=== PATIENT | female | born 1965 | race Caucasian/White ===

== ENCOUNTER 2017-08-25 18:31 | Emergency (ER) | payer OTHER ==
[~2017-08-25] VITALS: Ht 172.7 cm; Wt 90.7 kg
[~2017-08-25 18:31] MED LIST: ALBUAER19 INH; AMT50 PO; CLR10 PO; CYM/30 PO; DEXL60CA4 PO; DICY10CA12 PO; EFF75 PO; ESTCR PV; FLUT0.0529; HYDR-5688 PO; LEVO100T PO; MECL1TAB42 PO; METO-157 PO; MONT1TAB3 PO; ONDA4TAB46 PO; PREG1CAP70 PO; RANI300T PO; TRAM-10 PO
[2017-08-25 18:44] VITALS: TEMP 36.7; Ht 172.7 cm; Wt 90.7 kg
--- NOTE | 2017-08-25 19:19 | EMERGENCY ROOM VISIT NOTE ---
History First contact with patient: 18:49 Chief Complaint: GI ASSESSMENT Stated Complaint: NAUSEA, DIARRHEA, STOMACH PAIN, COUGHING, VOMITING Nursing Triage Summary: Patient c/o no appetite, vomiting with the diarrhea for the last 5 days, dizziness today, coughing more than normal, upper abdominal pain, and pain in ears. Took Tylenol for low grade fever at home. PMH: Gastroporesis. History of Present Illness The patient is a 52 year old female who presents to the Emergency Room with complaints of vomiting and diarrhea for 5 days Patient says that she has had 2 episodes of nonbloody emesis per day and has been unable to keep any food down. She has been able to keep down fluids. She also reports profuse diarrhea, but denies blood in her stool. In addition, she reports general abdominal tenderness, abdominal distension, ab fullness. She also has had increased belching and flatulence. She states that she has had a mild fever. Today she is afebrile, but patient states that she has taken Tylenol. Patient denies CP, SOB or URI symptoms. Patient was 2 different antibiotics over the past month for a sinus infection. Patient is a 38 year, 1 PPD smoker. Review of Systems see below Constitutional: + fever, No chills, No sweats Respiratory: No cough, No sputum, No wheezing, No shortness of breath, No dyspnea on exertion Cardiovascular: No chest pain, No orthopnea, No palpitations Abdomen: + pain, + nausea, + vomiting, + diarrhea Genitourinary - Female: No dysuria, No urinary frequency Past Medical/Surgical History Medical Problems: (1) Candidiasis Of The Esophagus (2) Esophageal Reflux (3) Gastroparesis (4) Vertigo Surgical Problems: (1) History of cholecystectomy Family History Cancer Diabetes mellitus Heart disease Hypertension Kidney disease Kidney stones Lung disease Social History Smoking Status: Current Every Day Smoker Alcohol Use: none Marital Status: Housing Status: lives with roommate Occupation Status: unemployed Current/Historical Medications Scheduled Amitriptyline Hcl (Elavil), 50 MG PO HS Dexlansoprazole (Dexilant), 1 CAP PO QPM Duloxetine Hcl (Cymbalta), 30 MG PO QPM Estradiol Vag 0.01% (Estrace Vag 0.01% ), 0.25 APPL PV [id number] Fluticasone Propionate (Nasal) (Flonase), 1 SPRAY NA QAM Hydrocodone/Acetaminophen 5MG/325MG (Roland 5MG/325MG), 1 TAB PO Q6H Levothyroxine Sodium (Synthroid), 100 MCG PO QAM Metoclopramide (Reglan), 10 MG PO BID Montelukast Sodium (Singulair), 10 MG PO QPM Pregabalin (Lyrica), 150 MG PO BID Ranitidine Hcl (Zantac), 300 MG PO HS Venlafaxine Hcl (Effexor), 75 MG PO QAM Scheduled PRN Albuterol Inhaler (Ventolin Inhaler), 1-2 PUFFS INH q4-6h PRN for prn Dicyclomine Hcl (Dicyclomine Hcl), 1 CAP PO TID PRN for PRN Loratadine (Claritin), 10 MG PO QAM PRN for PRN Meclizine Hcl (Meclizine Hcl), 25 MG PO TID PRN for Dizziness or Vertigo Ondansetron Hcl (Zofran), 1-2 TABS PO BID PRN for Nausea Tramadol (Ultram), 50 MG PO Q6 PRN for Pain Physical Exam Vital Signs Date Time Temp Pulse Resp B/P (MAP) Pulse Ox O2 Delivery O2 Flow Rate FiO2 08/25/17 20:29 76 18 137/78 96 Room Air 08/25/17 18:44 36.7 103 20 133/86 96 Room Air Physical Exam see below General Appearance: WD/WN, no apparent distress Head: normocephalic, atraumatic Neck: supple, no adenopathy Respiratory/Chest: chest non-tender, no respiratory distress, no accessory muscle use, + wheezing Cardiovascular: regular rate, rhythm, no edema, no gallop, no JVD, no murmur Abdomen / GI: normal bowel sounds, soft, no organomegaly, no pulsatile mass , + tenderness Neurologic/Psych: alert, normal mood/affect, normal reflexes, oriented x 3 Medical Decision & Procedures ER Provider Diagnostic Interpretation: PA CHEST WITH ABDOMINAL SERIES CLINICAL HISTORY: Vomiting. FINDINGS: A PA chest radiograph is compared to study dated 03/20/2016. The cardiomediastinal silhouette is unremarkable. The lungs and pleural spaces are clear. No pneumothorax is seen. The bony thorax is grossly intact. Supine and erect abdominal radiographs are compared to study dated 05/23/2016. Call cystectomy clips are noted. There is a nonobstructed abdominal bowel gas pattern. Scattered air-fluid levels are suggested in the colon. No evidence of intraperitoneal free air is seen. There are no abnormal abdominal calcifications. Phleboliths are seen in the pelvis. The lumbosacral spine and bony pelvis appear intact. IMPRESSION: 1. No active disease in the chest. 2. Nonobstructed abdominal bowel gas pattern. 3. Scattered air-fluid levels are suggested in the colon. Correlate clinically for evidence of a nonspecific enterocolitis. Laboratory Results 08/25/17 19:23 Red Blood Count 4.20, Mean Corpuscular Volume 89.8, Mean Corpuscular Hemoglobin 30.0, Mean Corpuscular Hemoglobin Concent 33.4, Mean Platelet Volume 11.3, Neutrophils (%) (Auto) 50.6, Lymphocytes (%) (Auto) 37.4, Monocytes (%) (Auto) 6.7, Eosinophils (%) (Auto) 4.3, Basophils (%) (Auto) 0.7, Neutrophils # (Auto) 4.79, Lymphocytes # (Auto) 3.55, Monocytes # (Auto) 0.64, Eosinophils # (Auto) 0.41, Basophils # (Auto) 0.07 08/25/17 19:23 Test 08/25/17 19:00 08/25/17 19:23 Urine Opiates Screen NEG (NEG) Urine Methadone, Qualitative NEG (NEG) Urine Barbiturates NEG (NEG) Urine Phencyclidine (PCP) Level NEG (NEG) Ur Amphetamine/Methamphetamine NEG (NEG) MDMA (Ecstasy) Screen NEG (NEG) Urine Benzodiazepines Screen NEG (NEG) Urine Cocaine Metabolite NEG (NEG) Urine Marijuana (THC) POS (NEG) White Blood Count 9.49 K/uL (4.8-10.8) Red Blood Count 4.20 M/uL (4.2-5.4) Hemoglobin 12.6 g/dL (12.0-16.0) Hematocrit 37.7 % (37-47) Mean Corpuscular Volume 89.8 fL (80-100) Mean Corpuscular Hemoglobin 30.0 pg (25-34) Mean Corpuscular Hemoglobin Concent 33.4 g/dl (32-36) Platelet Count 231 K/uL (130-400) Mean Platelet Volume 11.3 fL (7.4-10.4) Neutrophils (%) (Auto) 50.6 % Lymphocytes (%) (Auto) 37.4 % Monocytes (%) (Auto) 6.7 % Eosinophils (%) (Auto) 4.3 % Basophils (%) (Auto) 0.7 % Neutrophils # (Auto) 4.79 K/uL (1.4-6.5) Lymphocytes # (Auto) 3.55 K/uL (1.2-3.4) Monocytes # (Auto) 0.64 K/uL (0.11-0.59) Eosinophils # (Auto) 0.41 K/uL (0-0.5) Basophils # (Auto) 0.07 K/uL (0-0.2) RDW Standard Deviation 49.3 fL (36.4-46.3) RDW Coefficient of Variation 15.2 % (11.5-14.5) Immature Granulocyte % (Auto) 0.3 % Immature Granulocyte # (Auto) 0.03 K/uL (0.00-0.02) Anion Gap 7.0 mmol/L (3-11) Est Creatinine Clear Calc Drug Dose 97.1 ml/min Estimated GFR () 99.9 Estimated GFR (Non- 86.2 BUN/Creatinine Ratio 13.1 (10-20) Calcium Level 8.8 mg/dl (8.5-10.1) Total Bilirubin 0.4 mg/dl (0.2-1) Aspartate Amino Transf (AST/SGOT) 60 U/L (15-37) Alanine Aminotransferase (ALT/SGPT) 167 U/L (12-78) Alkaline Phosphatase 128 U/L (45-117) Total Protein 7.2 gm/dl (6.4-8.2) Albumin 3.7 gm/dl (3.4-5.0) Globulin 3.5 gm/dl (2.5-4.0) Albumin/Globulin Ratio 1.0 (0.9-2) Lipase 92 U/L (73-393) Medications Administered Medications (Trade) Dose Ordered Sig/Cal Route Start Time Stop Time Status Last Admin Dose Admin Ondansetron HCl (Zofran Inj) 4 mg NOW STAT IV 08/25/17 19:41 08/25/17 19:42 DC 08/25/17 19:47 4 MG Acetaminophen (Tylenol Tab) 650 mg NOW STAT PO 08/25/17 19:47 08/25/17 19:48 DC 08/25/17 20:25 650 MG Sodium Chloride 1,000 ml @ 999 mls/hr Q1H1M IV 08/25/17 20:15 09/24/17 20:14 08/25/17 20:29 999 MLS/HR ED Course 1900 history and physical performed 1914 order the following test and labs; ab/chest xray, cbc, cmp, cdiff, FOBT, urine toxicology 1944 Reaccessed the patient Medical Decision 52 year female comes into the ED with symptoms of vomiting and diarrhea for 5 days. Patient is unsure of recent sick contacts. Xray of the abdomen did not show signs of obstruction, but it did show air fluid levels consistent with enterocolitis. Patient was given Zofran for nausea, Tylenol for the pain and IVF. The patient had a normal white count, is afebrile. Patient reports PSH of cholecystomy. The patient's vital signs were stable throughout her ED course. Her symptoms are likely secondary to infectious gastroenteritis. She was advised to drink plenty of fluids and to consume a bland diet. She was instructed to follow up with her PCP in the next week. She was shown to have elevated LFT, likely 2/2 fatty liver disease. Patient endorses having a fatty liver on USG in the past. She was instructed to follow this up with her primary care doctor. Impression Primary Impression: Gastroenteritis Departure Information Dispostion Home / Self-Care Condition FAIR Referrals Ninfa Cruz D.ONidia (PCP) Patient Instructions My [facility] Additional Instructions Ms. Juarez, Kieran came to the ED to be evaluated for vomiting and diarrhea. Your labs and test were normal. You did have moderately elevated liver enzymes. This is likely not related to your other symptoms, but nonetheless, they should be rechecked and addressed by your primary care physician. Please follow up with your primary care doctor. You were given fluids, Zofran for nausea and Tylenol for abdominal pain. Zofran(odansetron) tablets 4mg: Take one and allow it to dissolve in your mouth every four to six hours as needed for nausea or vomiting. Acetaminophen(Tylenol) may be used for fever or pain. Use 1000mg every eight hours as needed. Avoid using more than 3000mg in a 24 hour period. This is available over the counter. Read all the package inserts or medication information paperwork provided. If you have any questions or concerns call your primary provider, pharmacist or the ER for assistance. Rest and drink plenty of fluids as tolerated. Slow sips of water or sports drinks are recommended instead of large amounts all at once. Continue current medications. Once your stomach is settled start with a clear liquid diet (jello, soup broth, etc.) and then advance as tolerated. You should avoid full, heavy meals for about 24 hrs from the time your symptoms resolved. Return to the ER for persistent vomiting, fevers, abdominal pain, chest pains, difficulty breathing, black or bloody stools, worsening of your condition, or as needed. Follow up with your primary physician in 1-2 days for a recheck of your current condition
--- NOTE | 2017-08-25 19:33 | EMERGENCY ROOM VISIT NOTE ---
ED Visit Note First contact with patient: 18:49 Resident Physician Supervision Note: I was present with Dr. Yost during the history and exam. I discussed the case with the resident and agree with the findings and plan as documented in the note. Documented By: Stefan Escalona
[2017-08-25 19:40] LABS: BASO % 0.7 %; BASO ABS # 0.07 K/uL (0-0.2); COMPLETE YES; EOS % 4.3 %; HEMATOCRIT 37.7 % (37-47); IG% 0.3 %; LYMPH % 37.4 %; LYMPH ABS # 3.55 K/uL (1.2-3.4); MEAN CELL VOLUME 89.8 fL (80-100); MEAN CORPUSCULAR HGB CONC 33.4 g/dl (32-36); MEAN PLATELET VOLUME 11.3 fL (7.4-10.4); MONO % 6.7 %; NEUT % 50.6 %; PLATELET COUNT 231 K/uL (130-400); WHITE BLOOD COUNT 9.49 K/uL (4.8-10.8)
[2017-08-25] MEDS ORDERED: ONDANSETRON INJ 2 MG/ML 2 ML VIAL IV STA (19:41)
[2017-08-25] MEDS ORDERED: ACETAMINOPHEN 325 MG TAB PO STA (19:47)
[2017-08-25 20:02] LABS: BUN/CREATININE RATIO 13.1 (10-20); CALCIUM 8.8 mg/dl (8.5-10.1); CREATININE 0.78 mg/dl (0.60-1.20); POTASSIUM 3.5 mmol/L (3.5-5.1)
[2017-08-25] MEDS ORDERED: SODIUM CHLORIDE 0.9% 1000ML 1,000 ML IV SCH (20:15)
--- NOTE | 2017-08-25 20:16 | DIAGNOSTIC IMAGING REPORT ---
PA CHEST WITH ABDOMINAL SERIES CLINICAL HISTORY: Vomiting. FINDINGS: A PA chest radiograph is compared to study dated 03/20/2016. The cardiomediastinal silhouette is unremarkable. The lungs and pleural spaces are clear. No pneumothorax is seen. The bony thorax is grossly intact. Supine and erect abdominal radiographs are compared to study dated 05/23/2016. Call cystectomy clips are noted. There is a nonobstructed abdominal bowel gas pattern. Scattered air-fluid levels are suggested in the colon. No evidence of intraperitoneal free air is seen. There are no abnormal abdominal calcifications. Phleboliths are seen in the pelvis. The lumbosacral spine and bony pelvis appear intact. IMPRESSION: 1. No active disease in the chest. 2. Nonobstructed abdominal bowel gas pattern. 3. Scattered air-fluid levels are suggested in the colon. Correlate clinically for evidence of a nonspecific enterocolitis. Electronically signed by: Gagan Christianson M.D. 08/25/2017 8:15 PM Dictated Date/Time: 08/25/2017 8:13 PM
[2017-08-25 20:30] LABS: BENZODIAZEPINE, URINE NEG (NEG); COCAINE,URINE NEG (NEG); PHENCYCLIDINE, URINE NEG (NEG)
[2017-08-25 22:02] VITALS: BP 137/82; PULSE 72; O2SAT 97
== END 2017-08-25 22:03 | disposition home or self-care (01) ==
LOC: C.EDB 18:32
DX: K52.9 Noninfective gastroenteritis and colitis, unspecified (principal); K21.9 Gastro-esophageal reflux disease without esophagitis; K31.84 Gastroparesis; Z80.9 Family history of malignant neoplasm, unspecified; Z83.3 Family history of diabetes mellitus; Z82.49 Family history of ischemic heart disease and other diseases of the circulatory system; Z84.1 Family history of disorders of kidney and ureter; Z83.6 Family history of other diseases of the respiratory system; F17.210 Nicotine dependence, cigarettes, uncomplicated; Z79.899 Other long term (current) drug therapy

== ENCOUNTER 2017-10-01 17:14 | Emergency (ER) | payer OTHER ==
[~2017-10-01] VITALS: Ht 172.7 cm; Wt 91.0 kg
[~2017-10-01 17:14] MED LIST changes: -METO-157 PO; -RANI300T PO
[2017-10-01 17:19] VITALS: TEMP 36.7; Ht 172.7 cm; Wt 91.0 kg
[2017-10-01] MEDS ORDERED: HYDROCODONE/ACETAMINOPHEN 7.5/325MG TAB PO STA (17:28)
[2017-10-01] MEDS ORDERED: RANI300T PO (18:06)
--- NOTE | 2017-10-01 18:19 | DIAGNOSTIC IMAGING REPORT ---
PA CHEST WITH LEFT-SIDED RIB SERIES CLINICAL HISTORY: Fall with left-sided chest wall pain. FINDINGS: A PA chest radiograph with 4 additional views may left-sided rib series is compared to study dated 03/20/2017. The cardiomediastinal silhouette is unremarkable. The lungs and pleural spaces are clear. There is left basilar atelectasis. No large pleural effusion or pneumothorax is seen. The skeletal structures are osteopenic. There are acute and minimally distracted left posterior fourth, fifth, and seventh rib fracture. No additional rib fracture is clearly identified on the rib series. The remainder of the bony thorax is grossly intact. IMPRESSION: 1. There is no airspace consolidation, large pleural effusion, or pneumothorax. 2. There are acute and minimally distracted left posterior 4th, 5th, and 7th rib fractures. Electronically signed by: Gagan Christianson M.D. 10/01/2017 6:18 PM Dictated Date/Time: 10/01/2017 6:14 PM
--- NOTE | 2017-10-01 18:25 | DIAGNOSTIC IMAGING REPORT ---
LEFT WRIST 4 VIEWS CLINICAL HISTORY: Fall with left wrist pain. FINDINGS: 4 views of left wrist are compared to study dated 06/23/2006. There is chronic posttraumatic deformity of the distal radial metaphysis as well as a chronic avulsion fracture of the ulnar styloid. There is likely acute on chronic fracture of the distal radial metaphysis. This is best seen on the lateral projection with there is cortical buckling. Lucencies in the distal right metaphysis also likely represent acute fracture and there is suspect intra-articular extension Overlying soft tissue edema is noted. Degenerative narrowing is seen at the radiocarpal articulation. Mild arthritic change is present the first carpal metacarpal joint. IMPRESSION: Suspect acute on chronic distal metaphyseal fracture of the left radius with overlying soft tissue edema. Electronically signed by: Gagan Christianson M.D. 10/01/2017 6:24 PM Dictated Date/Time: 10/01/2017 6:21 PM
[2017-10-01] MEDS ORDERED: PREG225C PO (18:33)
[2017-10-01] MEDS ORDERED: PROM25TA9 PO (18:33)
[2017-10-01] MEDS ORDERED: AMT/50 PO (18:33)
[2017-10-01] MEDS ORDERED: NAPR500T3 PO (18:33)
[2017-10-01] MEDS ORDERED: ATV5X PO (18:33)
[2017-10-01] MEDS ORDERED: LEVO75TA5 PO (18:33)
[2017-10-01] MEDS ORDERED: ATOR-22 PO (18:33)
[2017-10-01] MEDS ORDERED: MECL1CHW PO (18:33)
[2017-10-01] MEDS ORDERED: LORA10TA6 PO (18:33)
[2017-10-01] MEDS ORDERED: VENL37.593 PO (18:35)
[2017-10-01] MEDS ORDERED: VNTHFA/IN INH (18:38)
[2017-10-01] MEDS ORDERED: ESTCR PV (18:38)
[2017-10-01] MEDS ORDERED: METO-157 PO (18:45)
[2017-10-01] MEDS ORDERED: HYDR-3983 PO (18:48)
--- NOTE | 2017-10-01 18:50 | EMERGENCY ROOM VISIT NOTE ---
History Report prepared by Cate: Ute Martin Under the Supervision of: Dr. Carmine Morley D.O. First contact with patient: 17:23 Chief Complaint: FALL Stated Complaint: PAIN IN RIBS,L CHEST/WRIST/HAND PAIN-FELL History of Present Illness The patient is a 52 year old female who presents to the Emergency Room with complaints of an episode of fall around 7 hours ago. The patient was outside getting the mail when she slipped on ice and fell. She denies any head injury or LOC. She reports left rib pain which worsens with coughing. She also complains of left hand and wrist pain. She had swelling which has improved with ice. She reports difficulty moving her thumb due to the pain. She has left back pain which she thinks is from her ribs. She denies any knee pain or leg pain. Source of History: patient Onset: 7 hours ago Position: other (global) Quality: other (fall) Timing: other (episodic) Associated Symptoms: + back pain, No LOC Note: Pt reports left rib pain, left hand pain, left wrist pain. Pt denies knee pain, leg pain. Review of Systems See HPI for pertinent positives & negatives. A total of 10 systems reviewed and were otherwise negative. Past Medical & Surgical Medical Problems: (1) Candidiasis Of The Esophagus (2) Esophageal Reflux (3) Gastroparesis (4) Vertigo Surgical Problems: (1) History of cholecystectomy Family History Cancer Diabetes mellitus Heart disease Hypertension Kidney disease Kidney stones Lung disease Social History Smoking Status: Current Every Day Smoker Alcohol Use: none Marital Status: Housing Status: lives with roommate Occupation Status: unemployed Current/Historical Medications Scheduled Amitriptyline HCl (Amitriptyline HCl), 50 MG PO HS Atorvastatin (Lipitor), 20 MG PO DAILY Dexlansoprazole (Dexilant), 60 MG PO QPM Estradiol Vaginal (Estrace), 1 APPLN PV UD Levothyroxine Sodium (Levothyroxine Sodium), 75 MCG PO DAILY Metoclopramide (Reglan), 10 MG PO AC Pregabalin (Lyrica), 225 MG PO BID Ranitidine Hcl (Zantac), 300 MG PO HS Venlafaxine Hcl (Venlafaxine Extended Rel), 37.5 MG PO DAILY Scheduled PRN Albuterol Hfa (Ventolin Hfa), 2 PUFFS INH Q4H PRN for Cough/SOB/Wheezing Dicyclomine Hcl (Dicyclomine Hcl), 10 MG PO TID PRN for Abdominal Pain Hydrocodone/Acetaminophen 7.5MG/325MG (Bertha 7.5MG/325MG), 1 TAB PO Q4 PRN for Pain Loratadine (Claritin), 10 MG PO DAILY PRN for Allergy Symptoms Lorazepam (Lorazepam), 0.5 MG PO BID PRN for Anxiety Meclizine Hcl (Travel Sickness), 25 MG PO TID PRN for Dizziness or Vertigo Naproxen (Naproxen), 500 MG PO BID PRN for Pain Promethazine Hcl (Phenergan), 25 MG PO Q6H PRN for Nausea Allergies Coded Allergies: Amoxicillin (Verified Allergy, Intermediate, Rash, 10/01/17) Can tolerate amoxicillin Clavulanic Acid (Verified Allergy, Intermediate, Rash, 10/01/17) Can tolerate amoxicillin Clindamycin (Verified Allergy, Intermediate, Rash and blisters, 10/01/17) Doxycycline (Verified Allergy, Intermediate, Nausea/Vomiting, 10/01/17) Molds and Smuts (Verified Allergy, Unknown, unk, 08/25/17) Rabeprazole (Verified Allergy, Unknown, RASH, 08/25/17) Physical Exam Vital Signs Date Time Temp Pulse Resp B/P (MAP) Pulse Ox O2 Delivery O2 Flow Rate FiO2 10/01/17 17:19 36.7 98 17 127/81 95 Room Air Physical Exam CONSTITUTIONAL/VITAL SIGNS: Reviewed / noted above. GENERAL: Non-toxic in appearance. INTEGUMENTARY: Warm, dry, and Orange. HEAD: Normocephalic. EYES: without scleral icterus or trauma. ENT/OROPHARYNX: clear and moist. LYMPHADENOPATHY/NECK: Is supple without lymphadenopathy or meningismus. CHEST: Tenderness to palpation of the left lateral chest wall. No crepitus. RESPIRATORY: Lungs clear and equal. CARDIOVASCULAR: Regular rate and rhythm. GI/ABDOMEN: Soft and nontender. No organomegaly or pulsatile mass. No rebound or guarding. Normal bowel sounds. EXTREMITIES: Warm and well perfused. Some swelling and tenderness to the left wrist dorsal side overlying the distal radius. No snuffbox tenderness. No pain with axial loading of the digits. BACK: No CVA tenderness. No midline tenderness of the cervical, thoracic, and lumbar spine. NEUROLOGICAL: Intact without focal deficits. PSYCHIATRIC: normal affect. MUSCULOSKELETAL: Normally developed with good muscle tone. Medical Decision & Procedures ER Provider Diagnostic Interpretation: X ray results and stated below per my interpretation and radiology interpretation. PA CHEST WITH LEFT-SIDED RIB SERIES CLINICAL HISTORY: Fall with left-sided chest wall pain. FINDINGS: A PA chest radiograph with 4 additional views may left-sided rib series is compared to study dated 03/20/2017. The cardiomediastinal silhouette is unremarkable. The lungs and pleural spaces are clear. There is left basilar atelectasis. No large pleural effusion or pneumothorax is seen. The skeletal structures are osteopenic. There are acute and minimally distracted left posterior fourth, fifth, and seventh rib fracture. No additional rib fracture is clearly identified on the rib series. The remainder of the bony thorax is grossly intact. IMPRESSION: 1. There is no airspace consolidation, large pleural effusion, or pneumothorax. 2. There are acute and minimally distracted left posterior 4th, 5th, and 7th rib fractures. Electronically signed by: Gagan Christianson M.D. 10/01/2017 6:18 PM Dictated Date/Time: 10/01/2017 6:14 PM LEFT WRIST 4 VIEWS CLINICAL HISTORY: Fall with left wrist pain. FINDINGS: 4 views of left wrist are compared to study dated 06/23/2006. There is chronic posttraumatic deformity of the distal radial metaphysis as well as a chronic avulsion fracture of the ulnar styloid. There is likely acute on chronic fracture of the distal radial metaphysis. This is best seen on the lateral projection with there is cortical buckling. Lucencies in the distal right metaphysis also likely represent acute fracture and there is suspect intra-articular extension Overlying soft tissue edema is noted. Degenerative narrowing is seen at the radiocarpal articulation. Mild arthritic change is present the first carpal metacarpal joint. IMPRESSION: Suspect acute on chronic distal metaphyseal fracture of the left radius with overlying soft tissue edema. Electronically signed by: Gagan Christianson M.D. 10/01/2017 6:24 PM Dictated Date/Time: 10/01/2017 6:21 PM Medications Administered Medications (Trade) Dose Ordered Sig/Cal Route Start Time Stop Time Status Last Admin Dose Admin Acetaminophen/ Hydrocodone Bitart (Bertha 7.5/325 Tab) 1 tab NOW STAT PO 10/01/17 17:28 10/01/17 17:30 DC 10/01/17 17:37 1 TAB ED Course 1724: Previous medical records were reviewed. The patient was evaluated in room D7. A complete history and physical examination was performed. 172: Hydrocodone Bitart/Acetaminophen 1 tab PO. 185: On reevaluation, the patient is resting comfortably. I discussed the results and findings with the patient. She verbalized agreement of the treatment plan. She was discharged home. Medical Decision Differential includes close head injury, intracranial bleed, facial trauma, cervical spine trauma, chest and thoracic trauma, abdominal and intra-abdominal trauma, spine neurologic trauma, extremity trauma. This is a 52-year-old female who presents to the ED with a chief complaint of left-sided rib pain and left wrist pain after a fall. The patient states that her symptoms occurred around 10 AM when she slipped on the ice while getting her mail. The patient landed on her left side and complains of pain in that area. She has some swelling to the distal dorsal wrist on the radial side. She has tenderness to palpation the left ribs. The patient was given hydrocodone for the pain. X-rays reveal left fourth, fifth, sixth and seventh rib fractures. X-ray of the left wrist reveals a distal metaphyseal radius fracture. The patient was placed in a wrist splint. She was referred to orthopedics. She will be discharged on Bertha. Medication Reconcilliation Current Medication List: was personally reviewed by me Blood Pressure Screening Patient's blood pressure: Normal blood pressure Blood pressure disposition: Did not require urgent referral Impression Primary Impression: Fall Additional Impressions: Multiple fractures of ribs of left side Distal radius fracture, left Scribe Attestation The scribe's documentation has been prepared under my direction and personally reviewed by me in its entirety. I confirm that the note above accurately reflects all work, treatment, procedures, and medical decision making performed by me. Departure Information Dispostion Home / Self-Care Prescriptions Hydrocodone/Acetaminophen 7.5MG/325MG (Bertha 7.5MG/325MG) Tab 1 TAB PO Q4 Y for Pain, #30 TAB Prov: Carmine Morley D.O. 10/01/17 Referrals Ninfa Cruz D.O. (PCP) Patient Instructions My [facility] Additional Instructions Bertha as prescribed. Keep splint in place until following up with orthopedics. Call your orthopedist or the one listed here tomorrow for follow-up. Let them know that you broke your left wrist and need to see the orthopedist in 1-2 days. Take periodic deep breaths to prevent pneumonia while the rib fractures are healing. Problem Qualifiers
[2017-10-01] MEDS ORDERED: NORCO 5/325MG HOME PACK PO ONE (19:15)
[2017-10-01 20:03] VITALS: BP 124/77; PULSE 90; O2SAT 95
== END 2017-10-01 20:07 | disposition home or self-care (01) ==
LOC: C.EDB 17:17 → C.EDD 20:07
DX: S22.42XA Multiple fractures of ribs, left side, initial encounter for closed fracture (principal); S52.502A Unspecified fracture of the lower end of left radius, initial encounter for closed fracture; W00.0XXA Fall on same level due to ice and snow, initial encounter; Y92.008 Other place in unspecified non-institutional (private) residence as the place of occurrence of the external cause; F17.200 Nicotine dependence, unspecified, uncomplicated; Z79.899 Other long term (current) drug therapy

== ENCOUNTER 2022-11-18 12:44 | Observation (INO) ==
[2022-11-18] MEDS ORDERED: SODIUM CHLORIDE 0.9% 1000ML 1,000 ML IV SCH (13:30)
--- NOTE | 2022-11-18 13:33 | Emergency Department Note ---
Impression & Plan Psychosis, Acute paranoia, Positive urine drug screen ED Provider Note NAME: YAN MURPHY AGE: 57 SEX: F : 1965 ARRIVES VIA: Ambulance INFORMANT: Patient, ED PROVIDER(S): Stefan Escalona DO CHIEF COMPLAINT: Mental health evaluation HPI: The patient is a 57-year-old female who presented to the emergency department for an evaluation of mental health issues. The patient presented to the emergency department with police for suspected mental health complaint. The patient herself states that she has no pain. She denies having any chest pain or difficulty breathing. She denies having any headache or weakness. She states that she was walking along the road when the police stopped to ask her if she needed anything. She appeared to be confused and somewhat anxious so she was brought to the emergency department. She also voiced to the police that she thought somebody was trying to poison her. The patient states that she has been seeing people in her home that are in the attic and that her boyfriend is not using drugs. She denies any drug use herself. She denies having any alcohol use. The patient states that people are trying to poison her so she stopped taking her medications as well as stopped eating and drinking. The patient is very vague and will not give names on who is trying to harm her. ROS: See above HPI for pertinent positives & negatives. A total of 10 systems reviewed and were otherwise negative. PAST MEDICAL HISTORY: See Below PAST SURGICAL HISTORY: See Below FAMILY HISTORY: See Below SOCIAL HISTORY: See Below HOME MEDICATIONS: See Below ALLERGIES: See Below VITALS: See Below PHYSICAL EXAMINATION: GENERAL: Patient is awake and alert. She is somewhat anxious appearing. She is comfortable appearing. EYES: The conjunctivae are clear. The pupils are round and reactive. EARS, NOSE, MOUTH AND THROAT: The nose is without any evidence of any deformity. Mucous membranes are dry. NECK: The neck is nontender and supple. RESPIRATORY: Normal respiratory effort is noted there is no evidence of wheezing rhonchi or rales CARDIOVASCULAR: Regular rate and rhythm noted there no murmurs rubs or gallops normal S1 normal S2. GASTROINTESTINAL: The abdomen is soft. Abdomen is nontender. MUSCULOSKELETAL/EXTREMITIES: There is no evidence of gross deformity full range of motion is noted in the hips and shoulders. SKIN: There is no obvious evidence of any rash. There are no petechiae, pallor or cyanosis noted. NEUROLOGIC: Patient is awake alert and oriented x3 strength is symmetric patellar reflexes are 2+ bilaterally PSYCH: The patient makes poor eye contact mostly evaluation. She is currently denying any suicidal homicidal ideations. She still supports the paranoia that someone is trying to harm her and the people are in her home. MEDICAL DECISION MAKING: The patient is a 57-year-old female who presented to the emergency department for an evaluation of. Patient does not have a history of psychosis. Additional history was obtained by the mental health shoe parts caser from the patient's parents. She does not have a history of similar behavior in the past. She was brought to the emergency department by ambulance for presumed mental health evaluation. The patient does voice significant paranoia. No definite medical cause could be found for her presentation today. She was treated with IV fluids as well as given a meal in the emergency department. She was reevaluated multiple times. At this time it does not appear the patient would be a good candidate for inpatient psychiatric care given that this is a initial presentation of psychosis. For this reason I will discussed this [facility] Triage Nursing notes reviewed. Prior medical records reviewed Vital Signs: reviewed and remarkable for elevated blood pressure. Differential diagnosis: Mood disorder, infection, hypoglycemia, electrolyte abnormalities, cardiac sources, intracerebral event, toxicologic, trauma, neurologic, as well as other pathologies. ER treatment provided: See below Diagnostics interpreted by me: ECG: EKG was obtained in the emergency department. My interpretation is normal sinus rhythm at 73 bpm. There is no ectopy. There is no acute ST segment abnormalities noted. This was compared to a tracing from September 21, 2019. No changes were noted.] Cardiac Monitoring: An order was placed for continuous cardiac monitoring. The monitor shows a rate of 70 bpm with sinus rhythm. Laboratory studies: As stated above and show below. Imaging studies: See below. Radiographic imaging was reviewed by myself Consultation(s): I discussed this case with Roselia who [facility]. Past Med/Surg History Medical History (Updated 11/18/22 @ 17:06 by Stefan Escalona DO) Asthma C. difficile colitis Chronic pain syndrome Depression Diverticulitis Dyslipidemia Gastroparesis GERD (gastroesophageal reflux disease) Hypothyroidism IBS (irritable bowel syndrome) Vertigo Surgical History History of cholecystectomy History of partial colectomy Social History Smoking Status: Current every day smoker Tobacco Type: Cigarettes Preferred Language: Latvian Feels Safe at Home: No Allergies Allergies Allergy/AdvReac Type Severity Reaction Status Date / Time clavulanic acid Allergy Intermediate Rash Verified 09/27/22 15:30 clindamycin Allergy Intermediate Rash and Verified 09/27/22 15:30 blisters doxycycline Allergy Intermediate Nausea/Vomi Verified 09/27/22 15:30 ting mold Allergy Unknown Unknown Verified 09/27/22 15:30 rabeprazole Allergy Unknown Rash Verified 09/27/22 15:30 Home Meds Home Medications Medication Instructions Recorded Confirmed albuterol sulfate 90 mcg/actuation 2 puff inhalation DIRECTED PRN 10/26/18 09/27/22 aerosol inhaler (Ventolin HFA) Shortness Of Breath Or Wheezing levothyroxine 75 mcg tablet 75 mcg PO QAM 10/26/18 09/27/22 dexlansoprazole 60 mg 60 mg PO QAM 09/21/19 09/27/22 capsule,biphase delayed release (Dexilant) acetaminophen 500 mg tablet 500 - 1,000 mg PO DIRECTED PRN 09/27/22 09/27/22 (Tylenol Extra Strength) Pain amoxicillin 875 mg tablet 875 mg PO BID 09/27/22 09/27/22 budesonide-formoterol HFA 160 1 puff inhalation BID PRN 09/27/22 09/27/22 mcg-4.5 mcg/actuation aerosol Shortness Of Breath inhaler (Symbicort) Previous Rx's Medication Instructions Recorded etodolac 200 mg capsule 200 mg PO Q8H PRN pain #6 caps 09/27/22 Results & Data (ED) Vital Signs Vital Signs - 24 hr 11/18/22 12:54 11/18/22 12:54 Temperature 36.7 C 36.7 C Temperature Source Oral Oral Pulse Rate 70 Pulse Rhythm Regular Pulse Strength Normal Respiratory Rate 18 18 Respiratory Effort / Characteristics Non-Labored Spontaneous Non-Labored Spontaneous Respiratory Depth Normal Normal Respiratory Pattern Regular Regular Blood Pressure 141/89 H Blood Pressure Mean 106 Blood Pressure Position Sitting Pulse Oximetry 97 97 Oxygen Delivery Method Room Air Room Air Sepsis Recent Fever Within 48 Hours No Sepsis New/Unexplained Change in Mental Status Yes Sepsis Action Taken by Nursing No Action Required Home Medications Current Medication List: was personally reviewed by me Laboratory Data Attestation: I reviewed the patient's lab results. 11/18/22 13:47 11/18/22 13:47 Lab Results 11/18/22 11/18/22 11/18/22 Range/Units 13:25 13:47 13:47 WBC 6.39 (4.8-10.8) K/ul RBC 4.47 (4.20-5.40) M/uL Hgb 13.4 (12.0-16.0) g/dl Hct 39.8 (37.0-47.0) % MCV 89.0 (80.0-100.0) fL MCH 30.0 (25.0-34.0) pg MCHC 33.7 (32.0-36.0) g/dL RDW Std Deviation 41.1 (36.4-46.3) fL RDW Coeff of Naeem 12.8 (11.5-14.5) % Plt Count 283 (130-400) K/uL MPV 12.0 (9.4-12.4) fL Immature Gran % (Auto) 0.3 % Neut % (Auto) 61.0 % Lymph % (Auto) 28.8 % [place] % (Auto) 6.6 % Eos % (Auto) 1.1 % Baso % (Auto) 2.2 % Neut # (Auto) 3.90 (1.40-6.50) K/uL Lymph # (Auto) 1.84 (1.2-3.4) K/uL [place] # (Auto) 0.42 (0.11-0.59) K/uL Eos # (Auto) 0.07 (0-0.50) K/uL Baso # (Auto) 0.14 (0-0.2) K/uL Immature Gran # (Auto) 0.02 (0.01-0.20) K/uL Sodium 142 (136-145) mmol/L Potassium 3.7 (3.5-5.1) mmol/L Chloride 104 (98-107) mmol/L Carbon Dioxide 31 (21-32) mmol/L Anion Gap 7 (3-11) BUN 13 (6-23) mg/dl Creatinine 0.73 (0.6-1.2) mg/dl Est Cr Clr Drug Dosing 82.5 ml/min Est GFR ( Amer) 104.5 ml/min Est GFR (Non-Af Amer) 90.1 ml/min BUN/Creatinine Ratio 17.8 (10-20) Glucose 81 (70-99(Fasting)) mg/dl Calcium 9.7 (8.5-10.1) mg/dl Total Bilirubin 0.6 (0.2-1.0) mg/dl AST 34 (13-39) U/L ALT 30 (7-52) U/L Alkaline Phosphatase 63 (34-104) U/L Troponin I High Sens 5.7 (0-14) pg/ml Total Protein 7.7 (6.0-8.3) gm/dl Albumin 4.6 (3.4-5.0) gm/dl Globulin 3.1 (2.5-4.0) gm/dl Albumin/Globulin Ratio 1.5 (0.9-2) TSH (0.300-4.500) uIu/ml Urine Color Urine Appearance (Clear) Urine pH (4.5-7.5) Ur Specific [place] (1.000-1.030) Urine Protein (Negative) Urine Glucose (UA) (Negative) Urine Ketones (Negative) Urine Blood (Negative) Urine Nitrite (Negative) Urine Bilirubin (Negative) Urine Urobilinogen (Negative) Ur Leukocyte Esterase (Negative) Urine WBC (Auto) (0-5) /hpf Urine RBC (Auto) (0-4) /hpf U Hyaline Cast (Auto) (0-5) /lpf U Epithel Cells (Auto) (0-5) /lpf Urine Bacteria (Auto) (Negative) Salicylates (3.0-30) mg/dl Urine Opiates Screen (Neg) Ur Methadone, Qual (Neg) Acetaminophen (10-30) ug/ml Urine Barbiturates (Neg) Ur Phencyclidine (PCP) (Neg) U Amphetamin/Meth Scrn (Neg) MDMA (Ecstasy) Screen (Neg) U Benzodiazepines Scrn (Neg) Ur Cocaine Metabolite (Neg) U Marijuana (THC) Screen (Neg) Ethyl Alcohol mg/dL (<10.0) mg/dl SARS-CoV-2, RNA, NAAT NEGATIVE (NEGATIVE) 11/18/22 11/18/22 11/18/22 Range/Units 13:47 13:47 13:47 WBC (4.8-10.8) K/ul RBC (4.20-5.40) M/uL Hgb (12.0-16.0) g/dl Hct (37.0-47.0) % MCV (80.0-100.0) fL MCH (25.0-34.0) pg MCHC (32.0-36.0) g/dL RDW Std Deviation (36.4-46.3) fL RDW Coeff of Naeem (11.5-14.5) % Plt Count (130-400) K/uL MPV (9.4-12.4) fL Immature Gran % (Auto) % Neut % (Auto) % Lymph % (Auto) % [place] % (Auto) % Eos % (Auto) % Baso % (Auto) % Neut # (Auto) (1.40-6.50) K/uL Lymph # (Auto) (1.2-3.4) K/uL [place] # (Auto) (0.11-0.59) K/uL Eos # (Auto) (0-0.50) K/uL Baso # (Auto) (0-0.2) K/uL Immature Gran # (Auto) (0.01-0.20) K/uL Sodium (136-145) mmol/L Potassium (3.5-5.1) mmol/L Chloride (98-107) mmol/L Carbon Dioxide (21-32) mmol/L Anion Gap (3-11) BUN (6-23) mg/dl Creatinine (0.6-1.2) mg/dl Est Cr Clr Drug Dosing ml/min Est GFR ( Amer) ml/min Est GFR (Non-Af Amer) ml/min BUN/Creatinine Ratio (10-20) Glucose (70-99(Fasting)) mg/dl Calcium (8.5-10.1) mg/dl Total Bilirubin (0.2-1.0) mg/dl AST (13-39) U/L ALT (7-52) U/L Alkaline Phosphatase (34-104) U/L Troponin I High Sens (0-14) pg/ml Total Protein (6.0-8.3) gm/dl Albumin (3.4-5.0) gm/dl Globulin (2.5-4.0) gm/dl Albumin/Globulin Ratio (0.9-2) TSH 0.804 (0.300-4.500) uIu/ml Urine Color Urine Appearance (Clear) Urine pH (4.5-7.5) Ur Specific [place] (1.000-1.030) Urine Protein (Negative) Urine Glucose (UA) (Negative) Urine Ketones (Negative) Urine Blood (Negative) Urine Nitrite (Negative) Urine Bilirubin (Negative) Urine Urobilinogen (Negative) Ur Leukocyte Esterase (Negative) Urine WBC (Auto) (0-5) /hpf Urine RBC (Auto) (0-4) /hpf U Hyaline Cast (Auto) (0-5) /lpf U Epithel Cells (Auto) (0-5) /lpf Urine Bacteria (Auto) (Negative) Salicylates < 3.0 L (3.0-30) mg/dl Urine Opiates Screen (Neg) Ur Methadone, Qual (Neg) Acetaminophen < 3 L (10-30) ug/ml Urine Barbiturates (Neg) Ur Phencyclidine (PCP) (Neg) U Amphetamin/Meth Scrn (Neg) MDMA (Ecstasy) Screen (Neg) U Benzodiazepines Scrn (Neg) Ur Cocaine Metabolite (Neg) U Marijuana (THC) Screen (Neg) Ethyl Alcohol mg/dL < 10.0 (<10.0) mg/dl SARS-CoV-2, RNA, NAAT (NEGATIVE) 11/18/22 11/18/22 Range/Units 13:47 13:47 WBC (4.8-10.8) K/ul RBC (4.20-5.40) M/uL Hgb (12.0-16.0) g/dl Hct (37.0-47.0) % MCV (80.0-100.0) fL MCH (25.0-34.0) pg MCHC (32.0-36.0) g/dL RDW Std Deviation (36.4-46.3) fL RDW Coeff of Naeem (11.5-14.5) % Plt Count (130-400) K/uL MPV (9.4-12.4) fL Immature Gran % (Auto) % Neut % (Auto) % Lymph % (Auto) % [place] % (Auto) % Eos % (Auto) % Baso % (Auto) % Neut # (Auto) (1.40-6.50) K/uL Lymph # (Auto) (1.2-3.4) K/uL [place] # (Auto) (0.11-0.59) K/uL Eos # (Auto) (0-0.50) K/uL Baso # (Auto) (0-0.2) K/uL Immature Gran # (Auto) (0.01-0.20) K/uL Sodium (136-145) mmol/L Potassium (3.5-5.1) mmol/L Chloride (98-107) mmol/L Carbon Dioxide (21-32) mmol/L Anion Gap (3-11) BUN (6-23) mg/dl Creatinine (0.6-1.2) mg/dl Est Cr Clr Drug Dosing ml/min Est GFR ( Amer) ml/min Est GFR (Non-Af Amer) ml/min BUN/Creatinine Ratio (10-20) Glucose (70-99(Fasting)) mg/dl Calcium (8.5-10.1) mg/dl Total Bilirubin (0.2-1.0) mg/dl AST (13-39) U/L ALT (7-52) U/L Alkaline Phosphatase (34-104) U/L Troponin I High Sens (0-14) pg/ml Total Protein (6.0-8.3) gm/dl Albumin (3.4-5.0) gm/dl Globulin (2.5-4.0) gm/dl Albumin/Globulin Ratio (0.9-2) TSH (0.300-4.500) uIu/ml Urine Color Yellow Urine Appearance Clear (Clear) Urine pH 6.5 (4.5-7.5) Ur Specific [place] 1.022 (1.000-1.030) Urine Protein Trace H (Negative) Urine Glucose (UA) Negative (Negative) Urine Ketones 2+ H (Negative) Urine Blood Negative (Negative) Urine Nitrite Negative (Negative) Urine Bilirubin Negative (Negative) Urine Urobilinogen Negative (Negative) Ur Leukocyte Esterase Negative (Negative) Urine WBC (Auto) 1-5 (0-5) /hpf Urine RBC (Auto) 0-4 (0-4) /hpf U Hyaline Cast (Auto) 1-5 (0-5) /lpf U Epithel Cells (Auto) >30 H (0-5) /lpf Urine Bacteria (Auto) Negative (Negative) Salicylates (3.0-30) mg/dl Urine Opiates Screen Neg (Neg) Ur Methadone, Qual Neg (Neg) Acetaminophen (10-30) ug/ml Urine Barbiturates Neg (Neg) Ur Phencyclidine (PCP) Neg (Neg) U Amphetamin/Meth Scrn Pos H (Neg) MDMA (Ecstasy) Screen Neg (Neg) U Benzodiazepines Scrn Neg (Neg) Ur Cocaine Metabolite Neg (Neg) U Marijuana (THC) Screen Pos H (Neg) Ethyl Alcohol mg/dL (<10.0) mg/dl SARS-CoV-2, RNA, NAAT (NEGATIVE) Administered Medications Discontinued Medications Sodium Chloride (Nss 1000ml) 1,000 mls @ 999 mls/hr IV .[id number] Stop: 11/18/22 14:30 Last Infusion: 11/18/22 15:14 Dose: 0 mls/hr Documented By: Admin: 11/18/22 14:00 Dose: 999 mls/hr Documented By: JUDSON Imaging Data Attestation: I personally reviewed and interpreted this imaging study as foll ows: My Impression: 1 view chest x-ray was obtained in the emergency department. My interpretation is no definite infiltrate, no free air CT the head was obtained in the emergency department. My interpretation is no intracranial hemorrhage no mass effect. Radiologist's Impression: Head CT 11/18/22 13:25 CT SCAN OF THE BRAIN WITHOUT IV CONTRAST CLINICAL HISTORY: Change in mental status. COMPARISON STUDY: CT of the brain dated 02/04/2013. TECHNIQUE: Unenhanced axial CT scan of the brain is performed from the vertex to the skull base. A dose lowering technique was utilized adhering to the principles of ALARA. CT DOSE: 690.05 mGycm FINDINGS: Brain parenchyma: The brain parenchyma is normal in appearance. There is no hem orrhage, mass effect, or evidence of acute territorial ischemia by CT criteria. Desir-white matter differentiation is preserved. No extra-axial fluid collection is seen. Ventricles, sulci, cisterns: Normal in configuration. Intracranial vasculature: There is atherosclerotic calcification of the cavernous carotid arteries. Calvarium: Unremarkable. Sinuses and mastoids: The visualized paranasal sinuses are clear. The mastoid air cells are well pneumatized. Orbits: The bony orbits are grossly intact. IMPRESSION: There is no hemorrhage, mass effect, or evidence of acute territorial ischemia by CT criteria. ACT 112: Negative or not required by law. Electronically signed by: Gagan Christianson M.D. 11/18/2022 2:27 PM Chest X-Ray 11/18/22 13:26 XR chest 1V portable HISTORY: 57 years-old Female ams acutely altered mental status COMPARISON: 12/23/2021 TECHNIQUE: Semierect AP view of the chest FINDINGS: Cardiac mediastinal and hilar silhouettes are within normal limits. No pneumothorax, pleural effusion, airspace consolidation or pulmonary edema. Degenerative changes of the shoulders and spine. Chronic appearing lateral left- sided rib fractures. IMPRESSION: No acute process. ACT 112: Negative or not required by law. The above report was generated using voice recognition software. It may contain grammatical, syntax or spelling errors. Electronically signed by: Yoandy Arnold M.D. 11/18/2022 2:05 PM Discharge Plan Visit Data Chief Complaint: Mental Health Evaluation Stated Complaint: MENTAL HEALTH EVALUATION ED Provider: Stefan Escalona Discharge Problem: Psychosis, Acute paranoia, Positive urine drug screen Patient Disposition: Being Evaluated by Hospitalist Forms Stand Alone Forms: [facility], Suicide Prevention Resources Prescriptions Prescriptions: No Action dexlansoprazole [Dexilant] 60 mg capsule,biphase delayed releas 60 mg PO QAM levothyroxine 75 mcg tablet 75 mcg PO QAM albuterol sulfate [Ventolin HFA] 90 mcg/actuation Hfa Aerosol Inhaler 2 puff INHALATION DIRECTED PRN (Reason: Shortness Of Breath Or Wheezing) acetaminophen [Tylenol Extra Strength] 500 mg Tablet 500 - 1,000 mg PO DIRECTED PRN (Reason: Pain) amoxicillin 875 mg tablet 875 mg PO BID Rx Instructions: STARTED 09/24/22 FOR 10 DAYS. budesonide-formoterol [Symbicort] 160-4.5 mcg/actuation Hfa Aerosol Inhaler 1 puff INHALATION BID PRN (Reason: Shortness Of Breath) etodolac 200 mg capsule 200 mg PO Q8H PRN (Reason: pain) Qty: 6 0RF Rx Instructions: with food Referrals Referrals: PCP,NO [Physician] -
--- NOTE | 2022-11-18 14:06 | XRay Report ---
XR chest 1V portable HISTORY: 57 years-old Female ams acutely altered mental status COMPARISON: 12/23/2021 TECHNIQUE: Semierect AP view of the chest FINDINGS: Cardiac mediastinal and hilar silhouettes are within normal limits. No pneumothorax, pleural effusion , airspace consolidation or pulmonary edema. Degenerative changes of the shoulders and spine. Chronic appearing lateral left-sided rib fractures. IMPRESSION: No acute process. ACT 112: Negative or not required by law. The above report was generated using voice recognition software. It may contain grammatical, syntax o r spelling errors. Electronically signed by: Yoandy Arnold M.D. 11/18/2022 2:05 PM
[2022-11-18 14:18] LABS: Basophils # (auto) 0.14 K/uL (0-0.2); Basophils % (auto) 2.2 %; Eosinophils # (auto) 0.07 K/uL (0-0.50); Eosinophils % (auto) 1.1 %; Hematocrit (blood only) 39.8 % (37.0-47.0); Hemoglobin 13.4 g/dl (12.0-16.0); Immature Granulocytes # (auto) 0.02 K/uL (0.01-0.20); Immature Granulocytes % (auto) 0.3 %; Lymphocytes # (auto) 1.84 K/uL (1.2-3.4); Lymphocytes % (auto) 28.8 %; Mean Corpuscular Hgb Conc 33.7 g/dL (32.0-36.0); Monocytes # (auto) 0.42 K/uL (0.11-0.59); Monocytes % (auto) 6.6 %; Platelet Count 283 K/uL (130-400); RDW Coefficient of Variation 12.8 % (11.5-14.5); RDW Standard Deviation 41.1 fL (36.4-46.3); Red Blood Count 4.47 M/uL (4.20-5.40); White Blood Count 6.39 K/ul (4.8-10.8)
[2022-11-18 14:28] LABS: Acetaminophen < 3 ug/ml (10-30); Salicylate < 3.0 mg/dl (3.0-30)
--- NOTE | 2022-11-18 14:30 | CT Scan Report ---
CT SCAN OF THE BRAIN WITHOUT IV CONTRAST CLINICAL HISTORY: Change in mental status. COMPARISON STUDY: CT of the brain dated 02/04/2013. TECHNIQUE: Unenhanced axial CT scan of the brain is performed from the vertex to the skull base. A d ose lowering technique was utilized adhering to the principles of ALARA. CT DOSE: 690.05 mGycm FINDINGS: Brain parenchyma: The brain parenchyma is normal in appearance. There is no hemorrhage, mass effect, or evidence of acute territorial ischemia by CT criteria. Desir-white matter differentiation is preser josué. No extra-axial fluid collection is seen. Ventricles, sulci, cisterns: Normal in configuration. Intracranial vasculature: There is atherosclerotic calcification of the cavernous carotid arteries. Calvarium: Unremarkable. Sinuses and mastoids: The visualized paranasal sinuses are clear. The mastoid air cells are well pneu matized. Orbits: The bony orbits are grossly intact. IMPRESSION: There is no hemorrhage, mass effect, or evidence of acute territorial ischemia by CT tadeo michaels. ACT 112: Negative or not required by law. Electronically signed by: Gagan Christianson M.D. 11/18/2022 2:27 PM
[2022-11-18 14:34] LABS: Albumin Globulin Ratio 1.5 (0.9-2); Albumin Level 4.6 gm/dl (3.4-5.0); BUN Creatinine Ratio 17.8 (10-20); Bilirubin,Total 0.6 mg/dl (0.2-1.0); Calcium 9.7 mg/dl (8.5-10.1); Creatinine Clr Calc Pharmacy 82.5 ml/min; Est GFR (African American) 104.5 ml/min; Est GFR (Non-African American) 90.1 ml/min; Globulin 3.1 gm/dl (2.5-4.0); Potassium 3.7 mmol/L (3.5-5.1); Total Protein 7.7 gm/dl (6.0-8.3)
[2022-11-18 14:38] LABS: Troponin I High Sensitivity 5.7 pg/ml (0-14)
[2022-11-18 14:39] LABS: Appearance Urine Clear (Clear); Bacteria Urine Automated Negative (Negative); Bilirubin Urine Negative (Negative); Blood Urine Negative (Negative); Color Urine Yellow; Epithelial Cell Urine Auto >30 /lpf (0-5); Glucose Urine UA Negative (Negative); Ketones Urine 2+ (Negative); Leukocyte Esterase Urine Negative (Negative); Nitrite Urine Negative (Negative); Protein Urine Trace (Negative); RBC Urine Automated 0-4 /hpf (0-4); Specific Gravity Urine 1.022 (1.000-1.030); Urobilinogen Urine Negative (Negative); pH Urine 6.5 (4.5-7.5)
[2022-11-18 15:38] LABS: Amphetamines+Metham, Urine Pos (Neg); Barbiturates, Urine Neg (Neg); Benzodiazepine, Urine Neg (Neg); Cocaine, Urine Neg (Neg); MDMA (Ecstacy), Urine Neg (Neg); Methadone, Urine Neg (Neg); Opiate, Urine Neg (Neg); Phencyclidine, Urine Neg (Neg)
[2022-11-18] MEDS ORDERED: ACETAMINOPHEN 325 MG TAB PO PRN (18:03)
--- NOTE | 2022-11-18 18:08 | History & Physical Report ---
Date of Service November 18, 2022 Assessment & Plan (1) Acute paranoia: (2) Positive urine drug screen: Plan: Hx of Depression/anxiety Per ED report, patient was brought in by police as she was walking along the road, anxious and stating that people are trying to poison her. UDS was obtained in ER, which showed positive marijuana and amphetamine/methamphetamine. Confirmatory and rest of UDS pending. Chest x-ray was unremarkable. Blood work otherwise unremarkable. Urine analysis negative. Says her boyfriend of 20 years is a drug user. She says that he has friends who come to their place and they are all drug users. She reports "odd smell" in her room and thinks that they are trying to poison her. She does not feel safe in the house. She admits marijuana use, but denies any other drug use. Denies any fevers chills chest pain shortness of breath. No recent nausea vomiting. No significant abdominal pain. However she reports not feeling well and that she would not be eating much as she was worried she is being poisoned. She was able to tell me that [facility] [place]. Received IVF in ED, will continue will hold home venlafaxine for now Will involve case management and behavioral health Hypothyroidism TSH wnl - cont. home levothyroxine COPD - cont. home inhalers History of Present Illness Chief Complaint: AMS/paranoia Primary Care Provider: Ninfa Cruz DO 57-year-old female with history of hypothyroidism, dyslipidemia, COPD group B, nocturnal hypoxia, hypertension, GERD with esophagitis, history of moderate episode of recurrent Major Depressive Disorder, generalized anxiety disorder, presents with altered mental status/paranoia. Per ED report, patient was brought in by police as she was walking along the road, anxious and stating that people are trying to poison her. She was brought in for mental health evaluation. ER contacted patient's parents, and states that she has not acted this way before, and therefore full evaluation by medicine was required. Discussed with ER provider, and UDS was obtained in ER, which showed positive marijuana and amphetamine/methamphetamine. Chest x-ray was unremarkable. Blood work otherwise unremarkable. Urine analysis negative. Patient is currently lying in bed, in no acute distress, cooperative. Tells me that she lives with her boyfriend for 20 years and he is a drug user. She says that he has friends who come to their place and they are all drug users. She reports "odd smell" in her room and thinks that maybe they are trying to poison her. She does not feel safe in the house. "Bad things" are happening there, she would not further elaborate. She says she occasionally uses marijuana, but denies any other drug use. She is a smoker. Denies any fevers chills chest pain shortness of breath. No recent nausea vomiting. No significant abdominal pain. However she reports not feeling well and that she would not be eating much as she was worried she is being poisoned. She was able to tell me that she is currently at the [facility] [place]. Allergies Allergy/AdvReac Type Severity Reaction Status Date / Time clavulanic acid Allergy Intermediate Rash Verified 09/27/22 15:30 clindamycin Allergy Intermediate Rash and Verified 09/27/22 15:30 blisters doxycycline Allergy Intermediate Nausea/Vomi Verified 09/27/22 15:30 ting mold Allergy Unknown Unknown Verified 09/27/22 15:30 rabeprazole Allergy Unknown Rash Verified 09/27/22 15:30 Home Medications Medication Instructions Recorded Confirmed Type albuterol sulfate 90 mcg/actuation 2 puff inhalation DIRECTED PRN 10/26/18 09/27/22 History aerosol inhaler (Ventolin HFA) Shortness Of Breath Or Wheezing levothyroxine 75 mcg tablet 75 mcg PO QAM 10/26/18 09/27/22 History dexlansoprazole 60 mg 60 mg PO QAM 09/21/19 09/27/22 History capsule,biphase delayed release (Dexilant) acetaminophen 500 mg tablet 500 - 1,000 mg PO DIRECTED PRN 09/27/22 09/27/22 History (Tylenol Extra Strength) Pain amoxicillin 875 mg tablet 875 mg PO BID 09/27/22 09/27/22 History budesonide-formoterol HFA 160 1 puff inhalation BID PRN 09/27/22 09/27/22 History mcg-4.5 mcg/actuation aerosol Shortness Of Breath inhaler (Symbicort) etodolac 200 mg capsule 200 mg PO Q8H PRN pain #6 caps 09/27/22 Rx Past Med/Surg History Medical History (Updated 11/18/22 @ 17:06 by Stefan Escalona DO) Asthma C. difficile colitis Chronic pain syndrome Depression Diverticulitis Dyslipidemia Gastroparesis GERD (gastroesophageal reflux disease) Hypothyroidism IBS (irritable bowel syndrome) Vertigo Surgical History History of cholecystectomy History of partial colectomy Social History Smoking Status: Current every day smoker Tobacco Type: Cigarettes Preferred Language: Frisian Feels Safe at Home: No Review of Systems Review of Systems: All systems reviewed & are unremarkable except as noted in Subjective Physical Exam Constitutional: WD/WN, vitals as above Eyes: PERRL, conjunctivae normal, anicteric sclerae ENMT: external ear and nose normal, oropharynx normal Neck: trachea midline, no thyromegaly Respiratory: normal respiratory effort, lungs clear to auscultation (somewhat diminished) Cardiovascular: RRR, no murmur, no edema Chest (Breasts): Chest: normal inspection of chest Gastrointestinal (Abdomen): normal bowel sounds, soft, nontender, no hepatosplenomegaly Musculoskeletal: no cyanosis or clubbing, extremities motor strength 5/5 Skin: no rashes, warm and dry Neurologic: PERRL, EOMI, accommodation nl, no face palsy, no dysarthria Psychiatric: anxious Results & Data Results & Data ([facility]) Vital Signs (Past 12 Hours) Vital Signs Temp Pulse Resp BP Pulse Ox O2 Del Method 11/18/22 12:54 36.7 C 18 97 Room Air 11/18/22 12:54 36.7 C 70 18 141/89 H 97 Room Air Laboratory Results 11/18/22 11/18/22 11/18/22 Range/Units 13:47 13:47 13:47 WBC (4.8-10.8) K/ul RBC (4.20-5.40) M/uL Hgb (12.0-16.0) g/dl Hct (37.0-47.0) % MCV (80.0-100.0) fL MCH (25.0-34.0) pg MCHC (32.0-36.0) g/dL RDW Std Deviation (36.4-46.3) fL RDW Coeff of Naeem (11.5-14.5) % Plt Count (130-400) K/uL MPV (9.4-12.4) fL Immature Gran % (Auto) % Neut % (Auto) % Lymph % (Auto) % [place] % (Auto) % Eos % (Auto) % Baso % (Auto) % Neut # (Auto) (1.40-6.50) K/uL Lymph # (Auto) (1.2-3.4) K/uL [place] # (Auto) (0.11-0.59) K/uL Eos # (Auto) (0-0.50) K/uL Baso # (Auto) (0-0.2) K/uL Immature Gran # (Auto) (0.01-0.20) K/uL Sodium (136-145) mmol/L Potassium (3.5-5.1) mmol/L Chloride (98-107) mmol/L Carbon Dioxide (21-32) mmol/L Anion Gap (3-11) BUN (6-23) mg/dl Creatinine (0.6-1.2) mg/dl Est Cr Clr Drug Dosing ml/min Est GFR ( Amer) ml/min Est GFR (Non-Af Amer) ml/min BUN/Creatinine Ratio (10-20) Glucose (70-99(Fasting)) mg/dl Calcium (8.5-10.1) mg/dl Total Bilirubin (0.2-1.0) mg/dl AST (13-39) U/L ALT (7-52) U/L Alkaline Phosphatase (34-104) U/L Troponin I High Sens (0-14) pg/ml Total Protein (6.0-8.3) gm/dl Albumin (3.4-5.0) gm/dl Globulin (2.5-4.0) gm/dl Albumin/Globulin Ratio (0.9-2) TSH (0.300-4.500) uIu/ml Urine Color Yellow Urine Appearance Clear (Clear) Urine pH 6.5 (4.5-7.5) Ur Specific [place] 1.022 (1.000-1.030) Urine Protein Trace H (Negative) Urine Glucose (UA) Negative (Negative) Urine Ketones 2+ H (Negative) Urine Blood Negative (Negative) Urine Nitrite Negative (Negative) Urine Bilirubin Negative (Negative) Urine Urobilinogen Negative (Negative) Ur Leukocyte Esterase Negative (Negative) Urine WBC (Auto) 1-5 (0-5) /hpf Urine RBC (Auto) 0-4 (0-4) /hpf U Hyaline Cast (Auto) 1-5 (0-5) /lpf U Epithel Cells (Auto) >30 H (0-5) /lpf Urine Bacteria (Auto) Negative (Negative) Salicylates (3.0-30) mg/dl Urine Opiates Screen Neg (Neg) Ur Methadone, Qual Neg (Neg) Acetaminophen (10-30) ug/ml Urine Barbiturates Neg (Neg) Ur Phencyclidine (PCP) Neg (Neg) U Amphetamines Confirm Pending U Amphetamin/Meth Scrn Pos H (Neg) U Methamphetamin Confrm Pending MDMA (Ecstasy) Screen Neg (Neg) U Benzodiazepines Scrn Neg (Neg) Ur Cocaine Metabolite Neg (Neg) U Marijuana (THC) Screen Pos H (Neg) U Marijuana THC Carboxy Pending Drug Screen Comment Pending Ethyl Alcohol mg/dL (<10.0) mg/dl SARS-CoV-2, RNA, NAAT (NEGATIVE) 11/18/22 11/18/22 11/18/22 Range/Units 13:47 13:47 13:47 WBC (4.8-10.8) K/ul RBC (4.20-5.40) M/uL Hgb (12.0-16.0) g/dl Hct (37.0-47.0) % MCV (80.0-100.0) fL MCH (25.0-34.0) pg MCHC (32.0-36.0) g/dL RDW Std Deviation (36.4-46.3) fL RDW Coeff of Naeem (11.5-14.5) % Plt Count (130-400) K/uL MPV (9.4-12.4) fL Immature Gran % (Auto) % Neut % (Auto) % Lymph % (Auto) % [place] % (Auto) % Eos % (Auto) % Baso % (Auto) % Neut # (Auto) (1.40-6.50) K/uL Lymph # (Auto) (1.2-3.4) K/uL [place] # (Auto) (0.11-0.59) K/uL Eos # (Auto) (0-0.50) K/uL Baso # (Auto) (0-0.2) K/uL Immature Gran # (Auto) (0.01-0.20) K/uL Sodium (136-145) mmol/L Potassium (3.5-5.1) mmol/L Chloride (98-107) mmol/L Carbon Dioxide (21-32) mmol/L Anion Gap (3-11) BUN (6-23) mg/dl Creatinine (0.6-1.2) mg/dl Est Cr Clr Drug Dosing ml/min Est GFR ( Amer) ml/min Est GFR (Non-Af Amer) ml/min BUN/Creatinine Ratio (10-20) Glucose (70-99(Fasting)) mg/dl Calcium (8.5-10.1) mg/dl Total Bilirubin (0.2-1.0) mg/dl AST (13-39) U/L ALT (7-52) U/L Alkaline Phosphatase (34-104) U/L Troponin I High Sens (0-14) pg/ml Total Protein (6.0-8.3) gm/dl Albumin (3.4-5.0) gm/dl Globulin (2.5-4.0) gm/dl Albumin/Globulin Ratio (0.9-2) TSH 0.804 (0.300-4.500) uIu/ml Urine Color Urine Appearance (Clear) Urine pH (4.5-7.5) Ur Specific [place] (1.000-1.030) Urine Protein (Negative) Urine Glucose (UA) (Negative) Urine Ketones (Negative) Urine Blood (Negative) Urine Nitrite (Negative) Urine Bilirubin (Negative) Urine Urobilinogen (Negative) Ur Leukocyte Esterase (Negative) Urine WBC (Auto) (0-5) /hpf Urine RBC (Auto) (0-4) /hpf U Hyaline Cast (Auto) (0-5) /lpf U Epithel Cells (Auto) (0-5) /lpf Urine Bacteria (Auto) (Negative) Salicylates < 3.0 L (3.0-30) mg/dl Urine Opiates Screen (Neg) Ur Methadone, Qual (Neg) Acetaminophen < 3 L (10-30) ug/ml Urine Barbiturates (Neg) Ur Phencyclidine (PCP) (Neg) U Amphetamines Confirm U Amphetamin/Meth Scrn (Neg) U Methamphetamin Confrm MDMA (Ecstasy) Screen (Neg) U Benzodiazepines Scrn (Neg) Ur Cocaine Metabolite (Neg) U Marijuana (THC) Screen (Neg) U Marijuana THC Carboxy Drug Screen Comment Ethyl Alcohol mg/dL < 10.0 (<10.0) mg/dl SARS-CoV-2, RNA, NAAT (NEGATIVE) 11/18/22 11/18/22 11/18/22 Range/Units 13:47 13:47 13:25 WBC 6.39 (4.8-10.8) K/ul RBC 4.47 (4.20-5.40) M/uL Hgb 13.4 (12.0-16.0) g/dl Hct 39.8 (37.0-47.0) % MCV 89.0 (80.0-100.0) fL MCH 30.0 (25.0-34.0) pg MCHC 33.7 (32.0-36.0) g/dL RDW Std Deviation 41.1 (36.4-46.3) fL RDW Coeff of Naeem 12.8 (11.5-14.5) % Plt Count 283 (130-400) K/uL MPV 12.0 (9.4-12.4) fL Immature Gran % (Auto) 0.3 % Neut % (Auto) 61.0 % Lymph % (Auto) 28.8 % [place] % (Auto) 6.6 % Eos % (Auto) 1.1 % Baso % (Auto) 2.2 % Neut # (Auto) 3.90 (1.40-6.50) K/uL Lymph # (Auto) 1.84 (1.2-3.4) K/uL [place] # (Auto) 0.42 (0.11-0.59) K/uL Eos # (Auto) 0.07 (0-0.50) K/uL Baso # (Auto) 0.14 (0-0.2) K/uL Immature Gran # (Auto) 0.02 (0.01-0.20) K/uL Sodium 142 (136-145) mmol/L Potassium 3.7 (3.5-5.1) mmol/L Chloride 104 (98-107) mmol/L Carbon Dioxide 31 (21-32) mmol/L Anion Gap 7 (3-11) BUN 13 (6-23) mg/dl Creatinine 0.73 (0.6-1.2) mg/dl Est Cr Clr Drug Dosing 82.5 ml/min Est GFR ( Amer) 104.5 ml/min Est GFR (Non-Af Amer) 90.1 ml/min BUN/Creatinine Ratio 17.8 (10-20) Glucose 81 (70-99(Fasting)) mg/dl Calcium 9.7 (8.5-10.1) mg/dl Total Bilirubin 0.6 (0.2-1.0) mg/dl AST 34 (13-39) U/L ALT 30 (7-52) U/L Alkaline Phosphatase 63 (34-104) U/L Troponin I High Sens 5.7 (0-14) pg/ml Total Protein 7.7 (6.0-8.3) gm/dl Albumin 4.6 (3.4-5.0) gm/dl Globulin 3.1 (2.5-4.0) gm/dl Albumin/Globulin Ratio 1.5 (0.9-2) TSH (0.300-4.500) uIu/ml Urine Color Urine Appearance (Clear) Urine pH (4.5-7.5) Ur Specific [place] (1.000-1.030) Urine Protein (Negative) Urine Glucose (UA) (Negative) Urine Ketones (Negative) Urine Blood (Negative) Urine Nitrite (Negative) Urine Bilirubin (Negative) Urine Urobilinogen (Negative) Ur Leukocyte Esterase (Negative) Urine WBC (Auto) (0-5) /hpf Urine RBC (Auto) (0-4) /hpf U Hyaline Cast (Auto) (0-5) /lpf U Epithel Cells (Auto) (0-5) /lpf Urine Bacteria (Auto) (Negative) Salicylates (3.0-30) mg/dl Urine Opiates Screen (Neg) Ur Methadone, Qual (Neg) Acetaminophen (10-30) ug/ml Urine Barbiturates (Neg) Ur Phencyclidine (PCP) (Neg) U Amphetamines Confirm U Amphetamin/Meth Scrn (Neg) U Methamphetamin Confrm MDMA (Ecstasy) Screen (Neg) U Benzodiazepines Scrn (Neg) Ur Cocaine Metabolite (Neg) U Marijuana (THC) Screen (Neg) U Marijuana THC Carboxy Drug Screen Comment Ethyl Alcohol mg/dL (<10.0) mg/dl SARS-CoV-2, RNA, NAAT NEGATIVE (NEGATIVE) Code Status & VTE Plan VTE Prophylaxis Plan VTE Prophylaxis will be ordered: Yes
[2022-11-18] MEDS ORDERED: ENOXAPARIN INJ 30 MG/0.3 ML SYR SQ SCH (18:15)
[2022-11-18] MEDS ORDERED: ALBUTEROL HFA 8 GM INHALER INH PRN (19:56)
[2022-11-18] MEDS ORDERED: ENOXAPARIN INJ 40 MG/0.4 ML SYR SQ SCH (20:30)
[2022-11-18] MEDS: SODIUM CHLORIDE 0.9% 500 ML IV SCH (20:56)
[2022-11-18] MEDS: LORazepam 2 MG/1 ML VIAL IV PRN (20:57)
[2022-11-19] MEDS: SODIUM CHLORIDE 0.9% 500 ML IV SCH ×2 (03:11→10:14)
--- NOTE | 2022-11-19 05:40 | Electrocardiogram Report ---
Test Reason : Blood Pressure : / mmHG Vent. Rate : 073 BPM Atrial Rate : 073 BPM P-R Int : 128 ms QRS Dur : 086 ms QT Int : 416 ms P-R-T Axes : 051 047 037 degrees QTc Int : 458 ms Normal sinus rhythm Normal ECG When compared with ECG of 21-SEP-2019 21:03, No significant change was found Confirmed by Hector Kevin ([id number]) on 11/19/2022 5:39:59 AM Referred By: REFERRED SELF Confirmed By:Hector Kevin
[2022-11-19] MEDS: NICOTINE POLACRILEX 2 MG GUM MT PRN ×2 (06:02→17:10)
[2022-11-19] MEDS ORDERED: LEVOTHYROXINE SODIUM 75 MCG TABLET PO SCH ×2 (06:30→09:00)
[2022-11-19 07:44] LABS: Basophils # (auto) 0.09 K/uL (0-0.2); Basophils % (auto) 1.2 %; Eosinophils # (auto) 0.18 K/uL (0-0.50); Eosinophils % (auto) 2.4 %; Hematocrit (blood only) 32.5 % (37.0-47.0); Hemoglobin 10.7 g/dl (12.0-16.0); Immature Granulocytes # (auto) 0.03 K/uL (0.01-0.20); Immature Granulocytes % (auto) 0.4 %; Lymphocytes # (auto) 2.25 K/uL (1.2-3.4); Lymphocytes % (auto) 30.1 %; Mean Corpuscular Hemoglobin 29.6 pg (25.0-34.0); Mean Corpuscular Hgb Conc 32.9 g/dL (32.0-36.0); Mean Platelet Volume 11.5 fL (9.4-12.4); Monocytes # (auto) 0.53 K/uL (0.11-0.59); Monocytes % (auto) 7.1 %; Neutrophils # (auto) 4.39 K/uL (1.40-6.50); Neutrophils % (auto) 58.8 %; Platelet Count 230 K/uL (130-400); RDW Coefficient of Variation 12.8 % (11.5-14.5); RDW Standard Deviation 42.5 fL (36.4-46.3); Red Blood Count 3.61 M/uL (4.20-5.40); White Blood Count 7.47 K/ul (4.8-10.8)
[2022-11-19 08:03] LABS: Albumin Globulin Ratio 1.6 (0.9-2); Albumin Level 3.5 gm/dl (3.4-5.0); BUN Creatinine Ratio 25.4 (10-20); Bilirubin,Total 0.4 mg/dl (0.2-1.0); Calcium 8.5 mg/dl (8.5-10.1); Creatinine Clr Calc Pharmacy 91.9 ml/min; Est GFR (African American) 116.3 ml/min; Est GFR (Non-African American) 100.3 ml/min; Globulin 2.2 gm/dl (2.5-4.0); Magnesium 1.9 mg/dl (1.7-2.4); Phosphorus 3.6 mg/dl (2.5-4.9); Potassium 3.8 mmol/L (3.5-5.1); Total Protein 5.7 gm/dl (6.0-8.3)
[2022-11-19] MEDS: LORazepam 2 MG/1 ML VIAL IV PRN (08:32)
[2022-11-19] MEDS ORDERED: SENNA 8.6 MG TAB PO ONE (11:28)
[2022-11-19 11:53] LABS: Hematocrit (blood only) 32.8 % (37.0-47.0)
[2022-11-19] MEDS ORDERED: FAMOTIDINE 20 MG TAB PO SCH (12:30)
--- NOTE | 2022-11-19 14:39 | Psychiatric Consultation ---
Date of Consultation November 19, 2022 Impression / Recommendations Impression 57 yo woman with new onset psychosis with positive UDS initial screen, medical workup unrevealing for any potential medical causes for new psychosis. Diagnostically consistent with unspecified psychosis with differential including substance-induced (UDS positive for meth/amp on initial screen as well as cannabis) vs primary psychotic disorder vs mood episode. Given extent of her delusions and unsafe behaviors prior to admission (wandering alone outside) as well as ongoing lack of ability to state how she will meet her basic needs she was felt to meet 302 commitment criteria and 302 warrant was completed. She requires inpatient psychiatric hospitalization for diagnostic clarification, medication management, safety and stabilization and establishment of outpatient resources/disposition planning. (1) Psychosis: Psychosis type: unspecified psychosis type Qualified Code(s): F29 - Unspecified psychosis not due to a substance or known physiological condition (2) Positive urine drug screen: Plan -Plan for inpatient psychiatric admission on [facility] once bed is available -On 302 commitment, cannot leave AMA -Must remain on 1-on-1 due to 302 commitment Psych History Identifying Data 57 yo woman with history of anxiety admitted medically for altered mental status. Psychiatry consulted for recommendations. Chief Complaint "They were putting poison above my light, in a can into my room". History of Present Illness Beata presented to the ED via police after being found wandering along the road with confusion and paranoia about being poisoned. She was admitted medically given abrupt change in behavior with no prior history of psychosis and for IV fluids and medical workup. She is now medically clear and wants to leave but continues to report concerns about being poisoned and can't state how she will meet her basic needs (hasn't been eating prior to admission due to concerns for being poisoned) nor where she will go. [place] to meet 302 criteria and commitment completed. Allergies Allergy/AdvReac Type Severity Reaction Status Date / Time clavulanic acid Allergy Intermediate Rash Verified 09/27/22 15:30 clindamycin Allergy Intermediate Rash and Verified 09/27/22 15:30 blisters doxycycline Allergy Intermediate Nausea/Vomi Verified 09/27/22 15:30 ting mold Allergy Unknown Unknown Verified 09/27/22 15:30 rabeprazole Allergy Unknown Rash Verified 09/27/22 15:30 Home Medications Medication Instructions Recorded Confirmed Type albuterol sulfate 90 mcg/actuation 2 puff inhalation DIRECTED PRN 10/26/18 09/27/22 History aerosol inhaler (Ventolin HFA) Shortness Of Breath Or Wheezing levothyroxine 75 mcg tablet 75 mcg PO QAM 10/26/18 09/27/22 History dexlansoprazole 60 mg 60 mg PO QAM 09/21/19 09/27/22 History capsule,biphase delayed release (Dexilant) acetaminophen 500 mg tablet 500 - 1,000 mg PO DIRECTED PRN 09/27/22 09/27/22 History (Tylenol Extra Strength) Pain amoxicillin 875 mg tablet 875 mg PO BID 09/27/22 09/27/22 History budesonide-formoterol HFA 160 1 puff inhalation BID PRN 09/27/22 09/27/22 History mcg-4.5 mcg/actuation aerosol Shortness Of Breath inhaler (Symbicort) etodolac 200 mg capsule 200 mg PO Q8H PRN pain #6 caps 09/27/22 Rx Patient History Medical History Asthma C. difficile colitis Chronic pain syndrome Depression Diverticulitis Dyslipidemia Gastroparesis GERD (gastroesophageal reflux disease) Hypothyroidism IBS (irritable bowel syndrome) Vertigo Surgical History History of cholecystectomy History of partial colectomy Social History Smoking Status: Current every day smoker Tobacco Type: Cigarettes Cigarettes Per Day: 20; Hx Alcohol Use: No Hx Substance Use: Yes Last Used Substance: Unknown Preferred Language: Bengali Clam Treader Required: No Beliefs That Will Affect Care: None Current Living Situation: Spouse Feels Safe at Home: No Would You Like to Speak to Someone About Your Situation: Yes Safety Concerns: Afraid for Self Assistive Devices: Glasses Physical Exam Psychiatric: Orientation: alert and oriented x 3 Apperance: + disheveled Eye Contact: good eye contact Motor Behavior: no abnormal motor movements Speech: normal rate/rhythm/volume of speech (soft) Affect: + anxious affect Mood: + anxious mood Thought Process: + circumstantial thought process Thought Content: + paranoid and + delusions Suicidal Thoughts: denies suicidal thoughts Homicidal Thoughts: denies homicidal thoughts Insight: + severely impaired insight Judgment: + severely impaired judgement Vital Signs (Past 24 Hours): Last Vital Signs Temp 36.8 C 11/19/22 11:40 Pulse 71 11/19/22 11:40 Resp 18 11/19/22 11:40 BP 139/82 11/19/22 11:40 Pulse Ox 97 11/19/22 11:40 O2 Del Method Room Air 11/19/22 11:40 Review of Systems All systems reviewed & are unremarkable except as noted in HPI & below Results & Data (PSY) Medications Administered Acetaminophen (Acetaminophen 325 Mg Tab) 650 mg PO Q4H PRN PRN Reason: Pain or Fever Stop: 12/18/22 18:02 Last Admin: 11/18/22 20:56 Dose: 650 mg Documented By: RAYRAY Enoxaparin Sodium (Enoxaparin Inj 40 Mg/0.4 Ml Syr) 40 mg SQ Q24H [facility] Stop: 12/18/22 20:29 Last Admin: 11/18/22 21:03 Dose: Not Given Documented By: RAYRAY Famotidine (Famotidine 20 Mg Tab) [facility] [place] Stop: 12/19/22 12:29 Last Admin: 11/19/22 13:01 Dose: 20 mg Documented By: ALCIRA Levothyroxine Sodium (Levothyroxine Sodium 75 Mcg Tablet) [facility] Stop: 12/19/22 06:29 Last Admin: 11/19/22 06:02 Dose: 75 mcg Documented By: RAYRAY Lorazepam (Lorazepam 2 Mg/1 Ml Vial) 0.5 mg IV Q6H PRN PRN Reason: Anxiety/Agitation Stop: 12/18/22 20:44 Last Admin: 11/19/22 08:32 Dose: 0.5 mg Documented By: Admin: 11/18/22 20:57 Dose: 0.5 mg Documented By: RAYRAY Nicotine Polacrilex (Nicotine Polacrilex 2 Mg Gum) 1 piece MT Q2H PRN PRN Reason: Undecided Stop: 12/19/22 05:49 Last Admin: 11/19/22 06:02 Dose: 1 piece Documented By: RAYRAY Coding Level of Care Code 34486 IN/OBS CONSULT LVL 3,45M Diagnoses Psychosis F29 Psychosis type: unspecified psychosis type Positive urine drug screen R82.5 Time Spent (min) 45
--- NOTE | 2022-11-19 15:34 | Discharge Summary ---
Date of Service November 19, 2022 Admission HPI Per Admitting Provider 57-year-old female with history of hypothyroidism, dyslipidemia, COPD group B, nocturnal hypoxia, hypertension, GERD with esophagitis, history of moderate episode of recurrent Major Depressive Disorder, generalized anxiety disorder, presents with altered mental status/paranoia. Per ED report, patient was brought in by police as she was walking along the road, anxious and stating that people are trying to poison her. She was brought in for mental health evaluation. ER contacted patient's parents, and states that she has not acted this way before, and therefore full evaluation by medicine was required. Discussed with ER provider, and UDS was obtained in ER, which showed positive marijuana and amphetamine/methamphetamine. Chest x-ray was unremarkable. Blood work otherwise unremarkable. Urine analysis negative. Patient is currently lying in bed, in no acute distress, cooperative. Tells me that she lives with her boyfriend for 20 years and he is a drug user. She says that he has friends who come to their place and they are all drug users. She reports "odd smell" in her room and thinks that maybe they are trying to poison her. She does not feel safe in the house. "Bad things" are happening there, she would not further elaborate. She says she occasionally uses marijuana, but denies any other drug use. She is a smoker. Denies any fevers chills chest pain shortness of breath. No recent nausea vomiting. No significant abdominal pain. However she reports not feeling well and that she would not be eating much as she was worried she is being poisoned. She was able to tell me that [facility] [place] Admission Exam Per Admitting Provider Constitutional: WD/WN, vitals as above Eyes: PERRL, conjunctivae normal, anicteric sclerae ENMT: external ear and nose normal, oropharynx normal Neck: supple Respiratory: normal respiratory effort, lungs clear to auscultation (somewhat diminished) Cardiovascular: RRR, no murmur, no edema Chest (Breasts): Chest: normal inspection of chest Gastrointestinal (Abdomen): normal bowel sounds, soft, nontender Musculoskeletal: moves extremities Skin: no rashes, warm and dry Neurologic: PERRL, EOMI, no face palsy, no dysarthria, moves extremities Psychiatric: anxious Principal Diagnosis Paranoia psychosis (possibly substance- induced) vs. primary psychotic disorder vs moode episode positive UDS Discharge Exam Constitutional: WD/WN, vitals as above Eyes: PERRL, conjunctivae normal, anicteric sclerae ENMT: external ear and nose normal, oropharynx normal Neck: supple Respiratory: normal respiratory effort, lungs clear to auscultation (somewhat diminished) Cardiovascular: RRR, no murmur, no edema Chest (Breasts): Chest: normal inspection of chest Gastrointestinal (Abdomen): normal bowel sounds, soft, nontender Musculoskeletal: moves extremities Skin: no rashes, warm and dry Neurologic: PERRL, EOMI, no face palsy, no dysarthria, moves extremities Psychiatric: anxious Discharge Data Allergies Allergy/AdvReac Type Severity Reaction Status Date / Time clavulanic acid Allergy Intermediate Rash Verified 09/27/22 15:30 clindamycin Allergy Intermediate Rash and Verified 09/27/22 15:30 blisters doxycycline Allergy Intermediate Nausea/Vomi Verified 09/27/22 15:30 ting mold Allergy Unknown Unknown Verified 09/27/22 15:30 rabeprazole Allergy Unknown Rash Verified 09/27/22 15:30 Consultations 11/18/22 17:00 ED Decision to Admit Stat 11/18/22 18:48 Consult Behavioral Health Liaison Routine 11/19/22 12:31 Consult Psychiatry Routine Ordered Studies 11/18/22 13:25 CT head/brain wo con Stat FINDINGS: Brain parenchyma: The brain parenchyma is normal in appearance. There is no hemorrhage, mass effect, or evidence of acute territorial ischemia by CT criteria. Desir-white matter differentiation is preserved. No extra-axial fluid collection is seen. Ventricles, sulci, cisterns: Normal in configuration. Intracranial vasculature: There is atherosclerotic calcification of the cavernous carotid arteries. Calvarium: Unremarkable. Sinuses and mastoids: The visualized paranasal sinuses are clear. The mastoid air cells are well pneumatized. Orbits: The bony orbits are grossly intact. IMPRESSION: There is no hemorrhage, mass effect, or evidence of acute territorial ischemia by CT criteria. Hospital Course (1) Acute paranoia: (2) Positive urine drug screen: Psychosis -possibly substance induced, versus primary psychotic disorder versus mood episode Hx of Depression/anxiety Per ED report, patient was brought in by police as she was walking along the road, anxious and stating that people are trying to poison her. UDS was obtained in ER, which showed positive marijuana and amphetamine/methamphetamine. Confirmatory and rest of UDS pending. Chest x-ray was unremarkable. Blood work otherwise unremarkable. Urine analysis negative. Says her boyfriend of 20 years is a drug user. She says that he has friends who come to their place and they are all drug users. She reports "odd smell" in her room and thinks that they are trying to poison her. She does not feel safe in the house. She admits marijuana use, but denies any other drug use. Denies any fevers chills chest pain shortness of breath. No recent nausea vomiting. No significant abdominal pain. However she reports not feeling well and that she would not be eating much as she was worried she is being poisoned. She was able to tell me that she is [facility] at the [facility] [place]. Received IVF on admission will hold home venlafaxine for now Will involve case management and behavioral health Discussed in detail with psychiatry, patient will be transferred to inpatient psychiatry unit for further evaluation and treatment. Hypothyroidism TSH wnl - cont. home levothyroxine COPD - cont. home inhalers Total Time Total Time Spent Total Time Spent (In Minutes): 40 Discharge Plan Discharge Items Patient Disposition: Transfer Behavioral Health Fac Reason For Visit: AMS, PARANOIA Discharge Diagnosis: Paranoia psychosis (possibly substance- induced) vs. primary psychotic disorder vs moode episode positive UDS Activity: Per Instructions section Non-emergency contact: Psychiatrist Call non-emergency contact if: you have any medication questions and your symptoms worsen Follow-up/Referrals: Ninfa Cruz DO [Primary Care Provider] - Diet: Regular Diet Texture: Mechanical soft (ground) Diet Comment: Safe tray Addtl Attending Provider Instructions: Patient brought in by police, confused and paranoid, feeling that she is being poisoned. No infectious etiology or other medical etiology found at this time however her UDS was positive for marijuana and amphetamine/methamphetamine. Discussed in detail with psychiatry, pt will be transferred to psychiatric unit for further evaluation and treatment. Pending Studies at Discharge: Yes Studies:: Final UDS results Stand-Alone Forms: My [facility] Medications and DC Order Prescriptions: Continued dexlansoprazole [Dexilant] 60 mg capsule,biphase delayed releas 60 mg PO QAM levothyroxine 75 mcg tablet 75 mcg PO QAM albuterol sulfate [Ventolin HFA] 90 mcg/actuation Hfa Aerosol Inhaler 2 puff INHALATION DIRECTED PRN (Reason: Shortness Of Breath Or Wheezing) acetaminophen [Tylenol Extra Strength] 500 mg Tablet 500 - 1,000 mg PO DIRECTED PRN (Reason: Pain) budesonide-formoterol [Symbicort] 160-4.5 mcg/actuation Hfa Aerosol Inhaler 1 puff INHALATION BID PRN (Reason: Shortness Of Breath) etodolac 200 mg capsule 200 mg PO Q8H PRN (Reason: pain) Qty: 6 0RF Rx Instructions: with food Discontinued amoxicillin 875 mg tablet 875 mg PO BID Rx Instructions: STARTED 09/24/22 FOR 10 DAYS. Discharge Orders: Discharge Order (Routine); Ordered 11/19/22 Ordered By: Frandy Healy Admission Data Admit Date/Time: 11/18/22 18:02 Attending Provider: Frandy Healy Admit Provider: Frandy Healy Primary Care Provider: Ninfa Cruz Other Providers: Frandy Healy ; Jazmine Arroyo ; Nichole Ca ; Aleksandar March Other Interventions: Discharge Summary Assessment (RN) Last Done: 11/19/22 15:39
[2022-11-21 15:32] LABS: Amphetamine Urine, Confirm 2579 ng/mL (<250); Marijuana Quant, GCMS Urine 40 ng/mL (<5); Methamphetamine, Ur Confirm 7734 ng/mL (<250)
== END 2022-11-19 18:11 ==
LOC: ED 12:44 → 2W 12:44

== ENCOUNTER 2022-11-19 15:33 | Inpatient (IN) ==
[2022-11-19] MEDS ORDERED: BISMUTH SUBSALICYLATE LIQD 236 ML PO PRN (15:39)
[2022-11-19] MEDS ORDERED: hydrOXYzine HCl 25 MG TAB PO PRN ×2 (15:39)
[2022-11-19] MEDS ORDERED: SODIUM CHLORIDE 0.65% NA SOLN 45 ML (OCEAN) PRN (15:39)
[2022-11-19] MEDS ORDERED: ALUMINUM/MAGNESIUM SUSP 30 ML UDC PO PRN (15:39)
[2022-11-19] MEDS ORDERED: MAGNESIUM HYDROXIDE SUSP 30 ML UDC PO PRN (15:39)
[2022-11-19] MEDS ORDERED: ACETAMINOPHEN 325 MG TAB PO PRN (15:39)
[2022-11-19] MEDS ORDERED: ALBUTEROL HFA 8 GM INHALER INH PRN (18:20)
[2022-11-19] MEDS ORDERED: IBUPROFEN 200 MG TAB PO PRN (19:38)
[2022-11-19] MEDS: risperiDONE 1 MG TABLET PO SCH (21:11)
[2022-11-20] MEDS: PANTOprazole 40 MG TAB PO SCH (09:23)
[2022-11-20] MEDS: risperiDONE 1 MG TABLET PO SCH (09:23)
[2022-11-20] MEDS: LEVOTHYROXINE SODIUM 75 MCG TABLET PO SCH (09:23)
[2022-11-20] MEDS: FLUTICASONE/VILANTEROL 100/25MCG 14 PUFFS/INHALER INH SCH (09:26)
[2022-11-20] MEDS: NICOTINE POLACRILEX 2 MG GUM MT PRN (11:14)
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
[2022-11-20] MEDS ORDERED: hydrOXYzine HCl 10 MG TAB PO PRN (13:12)
[2022-11-20] MEDS: hydrOXYzine HCl 10 MG TAB PO PRN (17:19)
[2022-11-20] MEDS: PREGABALIN 75 MG CAP PO SCH (20:41)
[2022-11-20] MEDS: risperiDONE 0.5 MG TABLET PO SCH (20:42)
[2022-11-21 08:01] LABS: Chol HDL Ratio 3.7 (0-5)
[2022-11-21] MEDS: PANTOprazole 40 MG TAB PO SCH (08:26)
[2022-11-21] MEDS: LEVOTHYROXINE SODIUM 75 MCG TABLET PO SCH (08:26)
[2022-11-21] MEDS: risperiDONE 0.5 MG TABLET PO SCH ×2 (08:26→21:16)
[2022-11-21] MEDS: PREGABALIN 75 MG CAP PO SCH ×2 (08:27→21:16)
[2022-11-21] MEDS: FLUTICASONE/VILANTEROL 100/25MCG 14 PUFFS/INHALER INH SCH (08:30)
--- NOTE | 2022-11-21 08:59 | Psychiatric Progress Note ---
Date of Service November 21, 2022 Impression / Recommendations Impression Yan Murphy is a 57 year old with a history of anxiety, previously on venlafaxine, who was admitted for unspecified psychosis on 302 commitment. Diagnostically consistent with unspecified psychosis with differential including methamphetamine-induced psychosis (positive UDS) versus shante (though no evidence of such on exam today) vs primary psychotic disorder (can see new onset around menopause in women). She is deemed unstable and requires psychiatric hospitalization for diagnostic clarification, safety and stabilization, medication management and development of further coping skills. MNPR due to psychosis/paranoia 11/21/2022: Still with some loosening of associations but less paranoia today and better able to reality-test. Tolerating lower dose of risperidone without side effects. Fasting labs reviewed with slightly elevated fasting glucose (101) and normal fasting lipid panel. Confirmatory testing still pending, remains possible that psychosis is due to cannabis-induced psychosis versus alternative cause but her excessive sedation further suggests likely methamphetamine use. (1) Psychosis: (2) Acute paranoia: Plan 11/21/2022: Continue current medications and treatment plan. 11/20/2022: The patient was admitted to the [facility] ([facility] mental health unit) on q15 min checks (behavioral with suicide precautions) for safety. The patient will participate in group, recreational, and milieu therapies and will be offered additional individual and family sessions as clinically appropriate. -Start risperidone 0.5mg BID -Fasting lipid panel and glucose in the AM Inventory Assets Strengths: supportive family, housing Needs: medication adjustment, diagnostic clarification, safety and stabilization, outpatient resources Suicide Risk Level Suicide Risk Level: Moderate (q15 min suicide checks) (denies SI but with psychosis, agrees to let nursing know if she feels unsafe or develops SI) Risk Factors Assessment Male: No : Yes Do You Have Access To A Gun?: No Health Problems: Yes Mental Health Diagnoses: Yes Substance Use Disorders: Yes Previous Attempt: No Family History of Suicide: No Previous Psychiatric Hospitalization: No Hopelessness: No Protective Factors Assessment : No Employed: No Stable Relationships: Yes Supportive Family: Yes Interval History Identifying Information YAN MURPHY is a 57-year-old F who currently lives in [place] with her partner of 20 years, has a history of anxiety, and was admitted on 11/19/22 18:08 on a 302 involuntary commitment for unspecified psychosis and inability to care for herself. Chief Complaint "There was no one at the house, that was the meth". Review of Systems Sleep Information Total Hours of Sleep: 7 Meal Information Percent Meal Consumed - Breakfast: 50 Percent Meal Consumed - Lunch: 80 Percent Meal Consumed - Dinner: 75 Subjective Subjective Patient was seen & assessed and interval progress reviewed with treatment team nursing and social work. Mostly isolative to her room last evening, seems to be anxious when around peers. Showered this morning. Eating her meals. Today better able to reality-test at times, thinking that the methamphetamine may have caused her to incorrectly think someone was in her house. Thinking again that her boyfriend is a good person noting "I've been with him for 25 years". She denies methamphetamine use knowingly but thinks it was in her cannabis that she smoked for "3 or so" days before coming to the ED as "it tasted weird, not like the normal stuff" but can't clearly describe if this cannabis was the same she typically uses or came from somewhere else. Still somewhat disorganized in discussing this. Reviewed that sometimes cannabis alone can cause people to develop paranoia but she doesn't think this is the case. Found the lower dose of risperidone better, denies any dizziness or side effects from it today. She remains very tired and spending most of the day in bed. Feels "alright". Reviewed fasting lab results with her. Physical Exam Psychiatric Orientation: alert and oriented x 3 Apperance: appropriately dressed and appropriately groomed Eye Contact: + fair eye contact Motor Behavior: no abnormal motor movements Speech: normal rate/rhythm/volume of speech (slightly dysarthric due to lack of teeth) Affect: + constricted affect Mood: + anxious mood Thought Process: + circumstantial thought process and + looseness of associations Thought Content: reality based without delusions Suicidal Thoughts: denies suicidal thoughts, denies suicidal plan and denies suicidal intent Homicidal Thoughts: denies homicidal thoughts Hallucinations: no auditory hallucinations and no visual hallucinations Cognition: recent memory grossly intact, remote memory grossly intact, attention grossly intact and language grossly intact Estimated Intelligence: consistent with education level Insight: + limited insight Judgment: + limited judgement Vital Signs (Past 24 Hours) Last Vital Signs Temp 36.2 C L 11/21/22 06:50 Pulse 95 H 11/21/22 06:51 Resp 18 11/21/22 06:50 BP 111/60 11/21/22 06:51 Pulse Ox 99 11/19/22 18:29 O2 Del Method Room Air 11/19/22 18:29 A physical exam was performed on the medical floor by Dr. Healy for the purposes of medical clearance. I accept that physical as correct and adequate for the purposes of the inpatient physical exam. Results & Data (U) Laboratory Results Laboratory Results - last 24 hr 11/21/22 07:05 Fasting Glucose 101 H Triglycerides 140 Cholesterol 144 LDL Cholesterol, Calc 77 VLDL Cholesterol, Calc 28 HDL Cholesterol 39 Cholesterol/HDL Ratio 3.7 Current Inpatient Medications Current Inpatient Medications: Current Inpatient Medications Acetaminophen (Acetaminophen 325 Mg Tab) 650 mg PO Q4H PRN PRN Reason: Headache or Minor Fever Stop: 12/19/22 15:38 Al Hydrox/Mg Hydrox/Simethicone (Aluminum/Magnesium Susp 30 Ml Udc) 30 ml PO Q4H PRN PRN Reason: GI Upset Stop: 12/19/22 15:38 Albuterol (Albuterol Hfa 8 Gm Inhaler) 2 puffs INH Q4H PRN PRN Reason: Shortness Of Breath Or Wheezin Stop: 12/19/22 18:19 Bismuth Subsalicylate (Bismuth Subsalicylate Liqd 236 Ml) 15 ml PO PRN PRN PRN Reason: Loose Stool Stop: 12/19/22 15:38 Fluticasone/Vilanterol (Fluticasone/Vilanterol 100/25mcg 14 Puffs/Inhaler) 1 puffs INH DAILY FAROOQ Stop: 12/20/22 08:59 Last Admin: 11/21/22 08:30 Dose: Not Given Hydroxyzine HCl (Hydroxyzine Hcl 10 Mg Tab) 10 mg PO HS PRN PRN Reason: insomnia Stop: 12/20/22 13:11 Hydroxyzine HCl (Hydroxyzine Hcl 10 Mg Tab) 10 mg PO BID PRN PRN Reason: anxiety Stop: 12/20/22 16:13 Last Admin: 11/20/22 17:19 Dose: 10 mg Ibuprofen (Ibuprofen 200 Mg Tab) 400 mg PO Q8H PRN PRN Reason: Pain Stop: 12/19/22 19:37 Levothyroxine Sodium (Levothyroxine Sodium 75 Mcg Tablet) 75 mcg PO DAILYBB FAROOQ Stop: 12/20/22 07:59 Last Admin: 11/21/22 08:26 Dose: 75 mcg Magnesium Hydroxide (Magnesium Hydroxide Susp 30 Ml Udc) 30 ml PO DAILY PRN PRN Reason: Constipation Stop: 12/19/22 15:38 Nicotine Polacrilex (Nicotine Polacrilex 2 Mg Gum) 2 piece MT Q4 PRN PRN Reason: tobacco withdrawal Stop: 12/19/22 20:10 Last Admin: 11/20/22 11:14 Dose: 2 piece Pantoprazole Sodium (Pantoprazole 40 Mg Tab) 40 mg PO QAM FAROOQ Stop: 12/20/22 08:59 Last Admin: 11/21/22 08:26 Dose: 40 mg Pregabalin (Pregabalin 75 Mg Cap) 225 mg PO BID FAROOQ Stop: 12/20/22 20:59 Last Admin: 11/21/22 08:27 Dose: 225 mg Risperidone (Risperidone 0.5 Mg Tablet) 0.5 mg PO BID FAROOQ Stop: 12/20/22 20:59 Last Admin: 11/21/22 08:26 Dose: 0.5 mg Sodium Chloride (Sodium Chloride 0.65% Na Soln 45 Ml ([place])) 1 - 2 sprays NA PRN PRN PRN Reason: Nasal Dryness/Congestion Stop: 12/19/22 15:38 (1) Psychosis Psychosis type: unspecified psychosis type Qualified Code(s): F29 - Unspecified psychosis not due to a substance or known physiological condition
[2022-11-21] MEDS: NICOTINE POLACRILEX 2 MG GUM MT PRN ×2 (11:20→16:14)
[2022-11-22] MEDS: PANTOprazole 40 MG TAB PO SCH (09:00)
[2022-11-22] MEDS: FLUTICASONE/VILANTEROL 100/25MCG 14 PUFFS/INHALER INH SCH (09:00)
[2022-11-22] MEDS: risperiDONE 0.5 MG TABLET PO SCH ×2 (09:00→20:49)
[2022-11-22] MEDS: LEVOTHYROXINE SODIUM 75 MCG TABLET PO SCH (09:00)
[2022-11-22] MEDS: PREGABALIN 75 MG CAP PO SCH ×2 (09:01→20:49)
[2022-11-22] MEDS: hydrOXYzine HCl 10 MG TAB PO PRN ×2 (09:08→16:59)
--- NOTE | 2022-11-22 09:23 | Psychiatric Progress Note ---
Date of Service November 22, 2022 Impression / Recommendations Impression Beata Juarez is a 57 year old with a history of anxiety, previously on venlafaxine, who was admitted for unspecified psychosis on 302 commitment. 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 302 commitment expires 11/24/2022. MNPR due to recent paranoia 11/22/2022: Remains very tired, likely due to methamphetamine withdrawal, but tolerating risperidone well and no evidence of paranoia today. Starting to discuss more about recent methamphetamine use and UDS confirmatory testing consistent with methamphetamine use. Ongoing motivational interviewing regarding substance use, she is interested in possible residential substance use treatment. (1) Methamphetamine-induced psychotic disorder: (2) Methamphetamine use: (3) Psychosis: (4) Acute paranoia: Plan 11/22/2022: Continue current medications and tx plan. Begin search for possible residential substance use treatment, will remain inpatient while search begins as remains at high risk for methamphetamine use and then subsequent psychosis if outside of a controlled environment. 11/21/2022: Continue current medications and treatment plan. 11/20/2022: The patient was admitted to the [facility] ([facility]) on q15 min checks (behavioral with suicide precautions) for safety. The patient will participate in group, recreational, and milieu therapies and will be offered additional individual and family sessions as clinically appropriate. -Start risperidone 0.5mg BID -Fasting lipid panel and glucose in the AM Inventory Assets Strengths: supportive family, housing Needs: medication adjustment, diagnostic clarification, safety and stabilization, outpatient resources Suicide Risk Level Suicide Risk Level: Low (q15 min observation checks) (denies SI) Risk Factors Assessment Male: No : Yes Do You Have Access To A Gun?: No Health Problems: Yes Mental Health Diagnoses: Yes Substance Use Disorders: Yes Previous Attempt: No Family History of Suicide: No Previous Psychiatric Hospitalization: No Hopelessness: No Protective Factors Assessment : No Employed: No Stable Relationships: Yes Supportive Family: Yes Interval History Identifying Information BEATA JUAREZ is a 57-year-old F who currently lives in [place] with her partner of 20 years, has a history of anxiety, and was admitted on 11/19/22 18:08 on a 302 involuntary commitment for unspecified psychosis and inability to care for herself. Chief Complaint "I'm tired". Review of Systems Sleep Information Total Hours of Sleep: 8 Meal Information Percent Meal Consumed - Breakfast: 100 Percent Meal Consumed - Lunch: 75 Percent Meal Consumed - Dinner: 70 Subjective Subjective Patient was seen & assessed and interval progress reviewed with treatment team nursing and social work. Taking risperidone and her other medications. Sleeping most of the day. UDS confirmatory testing came back positive for high levels of methamphetamine and amphetamines. Discussed this with Beata. She agrees that she has been around methamphetamine and that it must have been in the cannabis she was using. States her partner has been buying methamphetamine and that they both relapsed about 4 months ago. She still thinks the people her partner has been bringing to the house are likely "trying to mess with my head" describing that they come over to use meth via smoking it. She describes it as small white cubes and that they call it "crank". She's unsure how much she has been using as continues to feel it was mixed in with the cannabis she smokes. She's thinking more about her relationship noting "being here has made me realize I should have left him a long time ago". She's interested in possible residential substance use treatment as long as she could smoke ciagartettes there. Physical Exam Psychiatric Orientation: alert and oriented x 3 Apperance: appropriately dressed and appropriately groomed Eye Contact: + fair eye contact Motor Behavior: no abnormal motor movements Speech: normal rate/rhythm/volume of speech (slightly dysarthric due to lack of teeth) Affect: + constricted affect Mood: + anxious mood Thought Process: + circumstantial thought process Thought Content: reality based without delusions Suicidal Thoughts: denies suicidal thoughts, denies suicidal plan and denies suicidal intent Homicidal Thoughts: denies homicidal thoughts Hallucinations: no auditory hallucinations and no visual hallucinations Cognition: recent memory grossly intact, remote memory grossly intact, attention grossly intact and language grossly intact Estimated Intelligence: consistent with education level Insight: + limited insight Judgment: + limited judgement Vital Signs (Past 24 Hours) Last Vital Signs Temp 36.4 C L 11/22/22 06:48 Pulse 85 11/22/22 06:49 Resp 16 11/22/22 06:48 BP 113/71 11/22/22 06:49 Pulse Ox 99 11/19/22 18:29 O2 Del Method Room Air 11/19/22 18:29 Results & Data ([facility]) Current Inpatient Medications Current Inpatient Medications: Current Inpatient Medications Acetaminophen (Acetaminophen 325 Mg Tab) 650 mg PO Q4H PRN PRN Reason: Headache or Minor Fever Stop: 12/19/22 15:38 Al Hydrox/Mg Hydrox/Simethicone (Aluminum/Magnesium Susp 30 Ml Udc) 30 ml PO Q4H PRN PRN Reason: GI Upset Stop: 12/19/22 15:38 Albuterol (Albuterol Hfa 8 Gm Inhaler) 2 puffs INH Q4H PRN PRN Reason: Shortness Of Breath Or Wheezin Stop: 12/19/22 18:19 Bismuth Subsalicylate (Bismuth Subsalicylate Liqd 236 Ml) 15 ml PO PRN PRN PRN Reason: Loose Stool Stop: 12/19/22 15:38 Fluticasone/Vilanterol (Fluticasone/Vilanterol 100/25mcg 14 Puffs/Inhaler) 1 puffs INH DAILY FAROOQ Stop: 12/20/22 08:59 Last Admin: 11/22/22 09:00 Dose: 1 puffs Hydroxyzine HCl (Hydroxyzine Hcl 10 Mg Tab) 10 mg PO HS PRN PRN Reason: insomnia Stop: 12/20/22 13:11 Last Admin: 11/21/22 17:43 Dose: 10 mg Hydroxyzine HCl (Hydroxyzine Hcl 10 Mg Tab) 10 mg PO BID PRN PRN Reason: anxiety Stop: 12/20/22 16:13 Last Admin: 11/22/22 09:08 Dose: 10 mg Ibuprofen (Ibuprofen 200 Mg Tab) 400 mg PO Q8H PRN PRN Reason: Pain Stop: 12/19/22 19:37 Levothyroxine Sodium (Levothyroxine Sodium 75 Mcg Tablet) 75 mcg PO DAILYBB FAROOQ Stop: 12/20/22 07:59 Last Admin: 11/22/22 09:00 Dose: 75 mcg Magnesium Hydroxide (Magnesium Hydroxide Susp 30 Ml Udc) 30 ml PO DAILY PRN PRN Reason: Constipation Stop: 12/19/22 15:38 Last Admin: 11/21/22 16:14 Dose: 30 ml Nicotine Polacrilex (Nicotine Polacrilex 2 Mg Gum) 2 piece MT Q4 PRN PRN Reason: tobacco withdrawal Stop: 12/19/22 20:10 Last Admin: 11/21/22 16:14 Dose: 2 piece Pantoprazole Sodium (Pantoprazole 40 Mg Tab) 40 mg PO QAM FAROOQ Stop: 12/20/22 08:59 Last Admin: 11/22/22 09:00 Dose: 40 mg Pregabalin (Pregabalin 75 Mg Cap) 225 mg PO BID FAROOQ Stop: 12/20/22 20:59 Last Admin: 11/22/22 09:01 Dose: 225 mg Risperidone (Risperidone 0.5 Mg Tablet) 0.5 mg PO BID FAROOQ Stop: 12/20/22 20:59 Last Admin: 11/22/22 09:00 Dose: 0.5 mg Sodium Chloride (Sodium Chloride 0.65% Na Soln 45 Ml ([place])) 1 - 2 sprays NA PRN PRN PRN Reason: Nasal Dryness/Congestion Stop: 12/19/22 15:38 Mental Health & Subst Abuse Tx Electronic Systems Security Assessment Name of Electronic Systems Security Assessment: [employer] Phone Number for Electronic Systems Security Assessment: [phone] Time of Appointment with Electronic Systems Security Assessment: will follow up directly with you after discharge Case Management Appointment Comment: [email or web address], [address], [place] [address] Post Discharge Appointments Primary Care Physician Name Of Family Doctor/PCP: [facility] Date of Future Appointment with PCP: 11/25/2022 Time of Appointment with PCP: 3:20pm please arrive 15 minutes early Provider Appointment Comment: [place] [id number] Contact Information Discharge Discharge Address: [address] [place] [id number] (3) Psychosis Psychosis type: unspecified psychosis type Qualified Code(s): F29 - Unspecified psychosis not due to a substance or known physiological condition
[2022-11-22] MEDS: NICOTINE POLACRILEX 2 MG GUM MT PRN (17:00)
[2022-11-23] MEDS: risperiDONE 0.5 MG TABLET PO SCH (08:21)
[2022-11-23] MEDS: PANTOprazole 40 MG TAB PO SCH (08:22)
[2022-11-23] MEDS: LEVOTHYROXINE SODIUM 75 MCG TABLET PO SCH (08:22)
[2022-11-23] MEDS: FLUTICASONE/VILANTEROL 100/25MCG 14 PUFFS/INHALER INH SCH (08:22)
[2022-11-23] MEDS: PREGABALIN 75 MG CAP PO SCH (08:23)
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
== END 2022-11-23 12:35 | disposition home or self-care (01) | DRG 897 ==
LOC: 3S 18:08

== ENCOUNTER 2024-11-18 11:24 | Inpatient (IN) ==
[2024-11-18] MEDS: ONDANSETRON INJ 2 MG/ML 2 ML VIAL IV STA (11:41)
[2024-11-18] MEDS: ASPIRIN CHEW 324 MG PO STA (11:41)
[2024-11-18] MEDS: SODIUM CHLORIDE 0.9% 1,000 ML IV ONE (11:42)
[2024-11-18] MEDS: PANTOprazole 40 MG/10 ML SYR IV ONE (11:42)
[2024-11-18] MEDS: fentaNYL citrate PF 100 MCG/2 ML VIAL IV PRN (11:42)
[2024-11-18] MEDS: PANTOprazole 40 MG/10 ML IVP IV ONE (11:44)
[2024-11-18] MEDS: ONDANSETRON INJ 2 MG/ML 2 ML VIAL ONE (11:44)
[2024-11-18] MEDS: ASPIRIN CHEW 324 MG ONE (11:44)
[2024-11-18] MEDS: fentaNYL citrate PF 100 MCG/2 ML VIAL ONE ×2 (11:44→13:27)
[2024-11-18] MEDS: PANTOprazole 40 MG TAB ONE (11:44)
[2024-11-18] MEDS: TICAGRELOR 90 MG TAB PO ONE (11:48)
[2024-11-18] MEDS: HEPARIN SOD (PORCINE) 1000 UNIT/ML IV ONE (11:48)
--- NOTE | 2024-11-18 11:53 | Emergency Department Note ---
Impression & Plan Chest pain, ST elevation (STEMI) myocardial infarction, Tobacco abuse ED Provider Note ED Provider Note NAME: YAN MURPHY AGE:59 SEX: Female : 1965 ARRIVES VIA: EMS INFORMANT: Patient ED PROVIDER(s): Sharon Lewis DO CHIEF COMPLAINT: Chest pain HPI: THis is a 59 yo female who presents to the ER with concern for chest pain. Patient states it has been present for 2-3 days and she thought it was from bad food. She states the pain is central and nonradiating. She states it has been constant but is worse with movement. She started feeling nauseated, short of breath, and lightheaded yesterday with the pain. She denies fevers/chills or URI symptoms. No recent change in medication. She states she occasionally has heartburn however this felt different. She denies any hx of heart problems. PAST MEDICAL HISTORY:See Below PAST SURGICAL HISTORY:See Below FAMILY HISTORY:See Below SOCIAL HISTORY:See Below HOME MEDICATIONS:See Below ALLERGIES:See Below VITALS:See Below PHYSICAL EXAMINATION: GENERAL: alert, unwell appearing, no distress, non-toxic EYE EXAM: normal conjunctiva, PERRL and EOM's grossly intact OROPHARYNX: no exudate, no erythema, lips, buccal mucosa, and tongue normal and mucous membranes are moist, edentulous, chronic staining of the central lips from tobacco abuse NECK: supple, no nuchal rigidity, no adenopathy, non-tender LUNGS: Clear to auscultation. Normal chest wall mechanics, no w/r/r HEART: no murmurs, S1 normal and S2 normal, no reproducible pain with palpation ABDOMEN: abdomen soft, non-tender, normo-active bowel sounds, no masses, no rebound or guarding. SKIN: no rashes, petechiae, orbruising UPPER EXTREMITIES: upper extremities are grossly normal. FROM, nml pulses b/l. LOWER EXTREMITIES: No pitting edema. FROM, nml pulses b/l. NEURO EXAM: Normal sensorium, cranial nerves II-XII grossly intact, normal speech, no facial droop,nogross weakness of arms, no gross weakness of legs. Gross sensation intact. No ataxia. Vital Signs: reviewed and remarkable Differential Diagnosis: acute coronary syndrome, pericarditis, pulmonary embolus, aortic dissection, pneumonia, pneumothorax, musculoskeletal pain, shingles, GERD, GI bleed, as well as others were considered MEDICAL DECISION MAKING: THis is a 59 yo female brought in by EMS due to concern for several days of chest pain. She was afebrile with stable vitals on arrival. Labs drawn and sent, IV established, EKG and CXR performed and interpreted at bedside, and patient placed on telemetry. She was noted to have an abnormal EKG and a code heart was activated. Patient given po asa, IV fentanyl, IV protonix, and IV zofran. She was started on IVF. Patient was seen at bedside by Dr. Hernandez. She was given brilinta and IV heparin additionally. She continued to have stable vitals and was taken to the labor relations officer urgently. No ectopy or dysrhythmia noted. Consultation(s): 1142: Dr. Hernandez at bedside. ER Treatment Provided: See below Diagnostics Interpreted By Me: -ECG: nsr at 93, nml axis, nml intervals, St elevated noted in V2-4, T wave inversions in I, AVL -Cardiac Monitoring: An order was placed for continuous cardiac monitoring. The monitor shows a rate of 88 with normal sinus rhythm. -Laboratory studies: As stated above and show below. -Imaging studies: X-ray Chest: A single view study of the chest was reviewed and was negative for cardiomegaly, focal infiltrate, effusion, pulmonary edema, or wide mediastinum. Triage Nursing Note Reviewed Prior/Outside Records Reviewed Critical Care: Critical care of 36 min performed to assess and manage high likelihood of life- threatening STEMI, involving labs and imaging performed with assessment to evaluate chest pain and abnormal EKG diagnosis with frequent reassessment. This time includes bedside time, treatment discussions with patient/family/consultants, documentation time and excludes procedure time. 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 difficile colitis Depression IBS (irritable bowel syndrome) Gastroparesis Vertigo Surgical History Hx of tubal ligation History of partial colectomy History of cholecystectomy Social History Smoking Status: Current every day smoker Tobacco Type: Cigarettes Cigarettes Per Day: 20; Second Hand Exposure: No; Do You Dip or Chew Tobacco: No; Tobacco Cessation Education Requested by Patient: No Hx Alcohol Use: No Preferred Language: Chinese Communication Ability: Effective Computer Scientist Required: No Beliefs That Will Affect Care: None Current Living Situation: Other Current Living Situation Comment: Lives with "Roommate" Other Information That Helps Us Care for You: No Feels Safe at Home: Yes Safety Concerns: Feels Safe At This Time Gender Identity: Female Assistive Devices: Nebulizer Allergies Allergies Allergy/AdvReac Type Severity Reaction Status Date / Time clavulanic acid Allergy Intermediate Rash Verified 11/20/22 13:02 clindamycin Allergy Intermediate Rash and Verified 11/20/22 13:02 blisters doxycycline Allergy Intermediate Nausea/Vomi Verified 11/20/22 13:02 ting mold Allergy Unknown Unknown Verified 11/20/22 13:02 rabeprazole Allergy Unknown Rash Verified 11/20/22 13:02 Home Meds Home Medications Medication Instructions Recorded Confirmed albuterol sulfate 90 mcg/actuation 2 puff inhalation DIRECTED PRN 10/26/18 11/18/24 aerosol inhaler (Ventolin HFA) Shortness Of Breath Or Wheezing levothyroxine 75 mcg tablet 75 mcg PO QAM 10/26/18 11/18/24 dexlansoprazole 60 mg 60 mg PO QAM 09/21/19 11/18/24 capsule,biphase delayed release (Dexilant) fluticasone propionate 115 2 puff inhalation Q12H 11/18/24 11/18/24 mcg-salmeterol 21 mcg/actuation HFA inhaler (Advair HFA) pregabalin 225 mg capsule (Lyrica) 225 mg PO BID 11/18/24 11/18/24 quetiapine 25 mg tablet 25 mg PO Q8H PRN Anxiety 11/18/24 11/18/24 sucralfate 100 mg/mL oral 10 ml PO ACHS 11/18/24 11/18/24 suspension venlafaxine 75 mg capsule,extended 76 mg PO DAILY 11/18/24 11/18/24 release 24 hr Results & Data (ED) Vital Signs Vital Signs - 24 hr 11/18/24 11:29 11/18/24 11:30 11/18/24 11:30 Temperature 36.8 C Temperature Source Oral Pulse Rate 96 H Pulse Rate [Apical] Pulse Rate from SpO2 Sensor Pulse Rhythm [Apical] Pulse Strength [Apical] Respiratory Rate 20 Respiratory Effort / Characteristics Non-Labored Spontaneous Respiratory Depth Normal Respiratory Pattern Regular Blood Pressure 105/73 105/73 Blood Pressure [Right Arm] Blood Pressure Mean 81 83 Blood Pressure Mean [Right Arm] Blood Pressure Position [Right Arm] Pulse Oximetry 96 96 Oxygen Delivery Method Room Air Room Air Sepsis Recent Fever Within 48 Hours No Sepsis New/Unexplained Change in Mental Status N/A Sepsis Action Taken by Nursing No Action Required 11/18/24 11:33 11/18/24 11:33 11/18/24 11:33 Temperature Temperature Source Pulse Rate 90 93 H Pulse Rate [Apical] Pulse Rate from SpO2 Sensor 92 H Pulse Rhythm [Apical] Pulse Strength [Apical] Respiratory Rate 21 Respiratory Effort / Characteristics Respiratory Depth Respiratory Pattern Blood Pressure Blood Pressure [Right Arm] Blood Pressure Mean Blood Pressure Mean [Right Arm] Blood Pressure Position [Right Arm] Pulse Oximetry 96 95 Oxygen Delivery Method Room Air Sepsis Recent Fever Within 48 Hours Sepsis New/Unexplained Change in Mental Status Sepsis Action Taken by Nursing 11/18/24 11:39 11/18/24 11:39 11/18/24 11:43 Temperature Temperature Source Pulse Rate Pulse Rate [Apical] Pulse Rate from SpO2 Sensor Pulse Rhythm [Apical] Pulse Strength [Apical] Respiratory Rate Respiratory Effort / Characteristics Respiratory Depth Respiratory Pattern Blood Pressure 102/82 Blood Pressure [Right Arm] Blood Pressure Mean 87 Blood Pressure Mean [Right Arm] Blood Pressure Position [Right Arm] Pulse Oximetry 96 96 Oxygen Delivery Method Room Air Room Air Sepsis Recent Fever Within 48 Hours Sepsis New/Unexplained Change in Mental Status Sepsis Action Taken by Nursing 11/18/24 11:45 11/18/24 11:49 11/18/24 11:55 Temperature Temperature Source Pulse Rate Pulse Rate [Apical] 98 H Pulse Rate from SpO2 Sensor 95 H Pulse Rhythm [Apical] Pulse Strength [Apical] Respiratory Rate 18 Respiratory Effort / Characteristics Non-Labored Spontaneous Respiratory Depth Normal Respiratory Pattern Blood Pressure 105/80 Blood Pressure [Right Arm] 105/80 Blood Pressure Mean 89 Blood Pressure Mean [Right Arm] 88 Blood Pressure Position [Right Arm] Pulse Oximetry 97 96 Oxygen Delivery Method Room Air Sepsis Recent Fever Within 48 Hours Sepsis New/Unexplained Change in Mental Status Sepsis Action Taken by Nursing 11/18/24 13:35 Temperature Temperature Source Pulse Rate Pulse Rate [Apical] 87 Pulse Rate from SpO2 Sensor Pulse Rhythm [Apical] Regular Pulse Strength [Apical] Normal Respiratory Rate 18 Respiratory Effort / Characteristics Non-Labored Respiratory Depth Normal Respiratory Pattern Regular Blood Pressure Blood Pressure [Right Arm] 127/88 Blood Pressure Mean Blood Pressure Mean [Right Arm] 101 Blood Pressure Position [Right Arm] Sitting Pulse Oximetry 95 Oxygen Delivery Method Room Air Sepsis Recent Fever Within 48 Hours Sepsis New/Unexplained Change in Mental Status Sepsis Action Taken by Nursing Laboratory Data 11/18/24 11:30 11/18/24 11:30 Lab Results 11/18/24 11/18/24 11/18/24 Range/Units 11:30 11:52 12:15 WBC 16.68 H (4.8-10.8) K/ul RBC 4.20 (4.20-5.40) M/uL Hgb 12.1 (12.0-16.0) g/dl POC Hgb 12.2 (12.0-16.0) g/dl Hct 36.2 L (37.0-47.0) % POC Hct 36 L (37-47) % MCV 86.2 (80.0-100.0) fL MCH 28.8 (25.0-34.0) pg MCHC 33.4 (32.0-36.0) g/dL RDW Std Deviation 39.8 (36.4-46.3) fL RDW Coeff of Naeem 12.7 (11.5-14.5) % Plt Count 256 (130-400) K/uL MPV 11.6 (9.4-12.4) fL Immature Gran % (Auto) 0.6 % Neut % (Auto) 79.0 % Lymph % (Auto) 11.6 % [place] % (Auto) 8.5 % Eos % (Auto) 0.1 % Baso % (Auto) 0.2 % Neut # (Auto) 13.18 H (1.40-6.50) K/uL Lymph # (Auto) 1.93 (1.20-3.40) K/uL [place] # (Auto) 1.42 H (0.11-0.59) K/uL Eos # (Auto) 0.01 (0.00-0.50) K/uL Baso # (Auto) 0.04 (0.00-0.20) K/uL Immature Gran # (Auto) 0.10 (0.01-0.20) K/uL PT 11.9 (9.0-12.0) Seconds INR 1.1 (0.9-1.1) APTT 28 (21-31) Seconds PTT Ratio 1.0 Activ Coag Time Kaolin 193 H (94-140) SECONDS POC Sodium 132 L (135-144) mmol/L Sodium 132 L (136-145) mmol/L POC Potassium 4.3 (3.3-5.0) mmol/L Potassium 3.7 (3.5-5.1) mmol/L POC Chloride 95 L (101-112) mmol/L Chloride 98 (98-107) mmol/L Carbon Dioxide 33 H (21-32) mmol/L POC Total CO2 30 (24-31) mmol/L Anion Gap 1 L (3-11) POC Anion Gap 12.0 L (16-25) mmol/L POC BUN 16 (7-18) mg/dl BUN 15 (6-23) mg/dl Creatinine 0.71 (0.6-1.2) mg/dl POC Creatinine 0.8 (0.6-1.3) mg/dl Est Cr Clr Drug Dosing 80.9 ml/min eGFR 96.68 BUN/Creatinine Ratio 21.1 H (10-20) Glucose 112 H (70-99(Fasting)) mg/dl POC Glucose (other) 104 H (70-99) mg/dl Calcium 8.9 (8.6-10.3) mg/dl POC Ioniz Calcium Williams 1.07 L (1.12-1.32) mmol/l Magnesium 1.7 (1.7-2.4) mg/dl Total Bilirubin 0.5 (0.2-1.0) mg/dl AST 224 H (13-39) U/L ALT 55 H (7-52) U/L Alkaline Phosphatase 61 (34-104) U/L Total Creatine Kinase 1279 H (26-192) U/L Troponin I High Sens 87313.5 H* (0-14) pg/ml B-Natriuretic Peptide 801 H (0-100) pg/ml Total Protein 6.7 (6.0-8.3) gm/dl Albumin 3.8 (3.4-5.0) gm/dl Globulin 2.9 (2.5-4.0) gm/dl Albumin/Globulin Ratio 1.3 (0.9-2) Lipase 13 (11-82) U/L TSH 1.699 (0.300-4.500) uIu/ml 11/18/24 Range/Units 12:47 WBC (4.8-10.8) K/ul RBC (4.20-5.40) M/uL Hgb (12.0-16.0) g/dl POC Hgb (12.0-16.0) g/dl Hct (37.0-47.0) % POC Hct (37-47) % MCV (80.0-100.0) fL MCH (25.0-34.0) pg MCHC (32.0-36.0) g/dL RDW Std Deviation (36.4-46.3) fL RDW Coeff of Naeem (11.5-14.5) % Plt Count (130-400) K/uL MPV (9.4-12.4) fL Immature Gran % (Auto) % Neut % (Auto) % Lymph % (Auto) % [place] % (Auto) % Eos % (Auto) % Baso % (Auto) % Neut # (Auto) (1.40-6.50) K/uL Lymph # (Auto) (1.20-3.40) K/uL [place] # (Auto) (0.11-0.59) K/uL Eos # (Auto) (0.00-0.50) K/uL Baso # (Auto) (0.00-0.20) K/uL Immature Gran # (Auto) (0.01-0.20) K/uL PT (9.0-12.0) Seconds INR (0.9-1.1) APTT (21-31) Seconds PTT Ratio Activ Coag Time Kaolin 239 H (94-140) SECONDS POC Sodium (135-144) mmol/L Sodium (136-145) mmol/L POC Potassium (3.3-5.0) mmol/L Potassium (3.5-5.1) mmol/L POC Chloride (101-112) mmol/L Chloride (98-107) mmol/L Carbon Dioxide (21-32) mmol/L POC Total CO2 (24-31) mmol/L Anion Gap (3-11) POC Anion Gap (16-25) mmol/L POC BUN (7-18) mg/dl BUN (6-23) mg/dl Creatinine (0.6-1.2) mg/dl POC Creatinine (0.6-1.3) mg/dl Est Cr Clr Drug Dosing ml/min eGFR BUN/Creatinine Ratio (10-20) Glucose (70-99(Fasting)) mg/dl POC Glucose (other) (70-99) mg/dl Calcium (8.6-10.3) mg/dl POC Ioniz Calcium Williams (1.12-1.32) mmol/l Magnesium (1.7-2.4) mg/dl Total Bilirubin (0.2-1.0) mg/dl AST (13-39) U/L ALT (7-52) U/L Alkaline Phosphatase (34-104) U/L Total Creatine Kinase (26-192) U/L Troponin I High Sens (0-14) pg/ml B-Natriuretic Peptide (0-100) pg/ml Total Protein (6.0-8.3) gm/dl Albumin (3.4-5.0) gm/dl Globulin (2.5-4.0) gm/dl Albumin/Globulin Ratio (0.9-2) Lipase (11-82) U/L TSH (0.300-4.500) uIu/ml Administered Medications Fluticasone/Vilanterol (Fluticasone/Vilanterol 200/25mcg 14 Puffs/Inhaler) 1 puffs INH DAILY FAROOQ Stop: 12/18/24 20:59 Last Admin: 11/18/24 20:48 Dose: 1 puffs Documented By: TALISHA Metoprolol Tartrate (Metoprolol Tartrate 25 Mg Tab) 25 mg PO BID FAROOQ Stop: 12/18/24 20:59 Last Admin: 11/18/24 20:49 Dose: 25 mg Documented By: TALISHA Miscellaneous (Icu Protocol For Hyperglycemia) 1 each N/A ACHS FAROOQ Stop: 11/20/24 16:29 Last Admin: 11/18/24 20:47 Dose: Not Given Documented By: Admin: 11/18/24 16:16 Dose: Not Given Documented By: WILLIE Morphine Sulfate (Morphine Sulfate 10 Mg/Ml Carp/Vial) 2 mg IV Q5M PRN PRN Reason: MODERATE to SEVERE Pain Stop: 12/02/24 13:29 Last Admin: 11/18/24 16:17 Dose: 2 mg Documented By: WILLIE Pregabalin (Pregabalin 75 Mg Cap) 225 mg PO BID FAROOQ Stop: 12/18/24 20:59 Last Admin: 11/18/24 20:48 Dose: 225 mg Documented By: TALISHA Discontinued Medications Amiodarone HCl/Dextrose (Amiodarone 150mg / 100ml D5w ([employer]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)) Confirm Administered Dose 150 mg IV .STK-MED ONE Stop: 11/18/24 12:17 Last Admin: 11/18/24 13:28 Dose: Not Given Documented By: EDI Aspirin (Aspirin Chew 324 Mg) Confirm Administered Dose 324 mg .ROUTE .STK-MED ONE Stop: 11/18/24 11:39 Last Admin: 11/18/24 11:44 Dose: Not Given Documented By: KAMILA Aspirin (Aspirin Chew 324 Mg) 324 mg PO NOW STA Stop: 11/18/24 11:40 Last Admin: 11/18/24 11:41 Dose: 324 mg Documented By: KAMILA Atropine Sulfate (Atropine Sulfate 0.1 Mg/Ml 10ml Syr) Confirm Administered Dose 1 mg IV .STK-MED ONE Stop: 11/18/24 12:15 Last Admin: 11/18/24 13:27 Dose: Not Given Documented By: EDI Atropine Sulfate (Atropine Sulfate 0.1 Mg/Ml 10ml Syr) Confirm Administered Dose 1 mg IV .STK-MED ONE Stop: 11/18/24 12:15 Last Admin: 11/18/24 13:28 Dose: Not Given Documented By: EDI Diphenhydramine HCl (Diphenhydramine 50 Mg/Ml Vial) Confirm Administered Dose 50 mg .ROUTE .STK-MED ONE Stop: 11/18/24 12:05 Last Admin: 11/18/24 12:29 Dose: 25 mg Documented By: EDI Epinephrine HCl (Epinephrine 1.5" Ndl 0.1 Mg/Ml Syr) Confirm Administered Dose 1 mg IV .STK-MED ONE Stop: 11/18/24 12:15 Last Admin: 11/18/24 13:28 Dose: Not Given Documented By: EDI Fentanyl Citrate (Fentanyl Citrate Pf 100 Mcg/2 Ml Vial) Confirm Administered Dose 100 mcg .ROUTE .STK-MED ONE Stop: 11/18/24 11:39 Last Admin: 11/18/24 11:44 Dose: Not Given Documented By: KAMILA Fentanyl Citrate (Fentanyl Citrate Pf 100 Mcg/2 Ml Vial) 50 mcg IV Q15M PRN PRN Reason: Pain Stop: 12/02/24 11:38 Last Admin: 11/18/24 13:29 Dose: 75 mcg Documented By: Admin: 11/18/24 11:42 Dose: 50 mcg Documented By: KAMILA Fentanyl Citrate (Fentanyl Citrate Pf 100 Mcg/2 Ml Vial) Confirm Administered Dose 100 mcg .ROUTE .STK-MED ONE Stop: 11/18/24 11:59 Last Admin: 11/18/24 13:27 Dose: Not Given Documented By: EDI Heparin Sodium (Porcine) (Heparin Sod (Porcine) 1000 Unit/Ml) 5,000 units IV NOW ONE Stop: 11/18/24 11:47 Last Admin: 11/18/24 11:48 Dose: 5,000 units Documented By: KAMILA Co-signed By: GARY Heparin Sodium (Porcine) (Heparin (Porcine) 1000 Unit/Ml 10 Ml (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)) Confirm Administered Dose 10,000 units .ROUTE .STK-MED ONE Stop: 11/18/24 11:59 Last Admin: 11/18/24 13:27 Dose: 4,500 units Documented By: EDI Heparin Sodium/Sodium Chloride (Heparin In Nss Infusion 1000 Unit/500 Ml (2 U/Ml) Bag) Confirm Administered Dose 3,000 units IV .STK-MED ONE Stop: 11/18/24 11:59 Last Admin: 11/18/24 13:28 Dose: Not Given Documented By: EDI Pantoprazole Sodium (Protonix) 40 mg in 10 mls @ 5 mls/min IV NOW ONE Stop: 11/18/24 11:40 Last Admin: 11/18/24 11:42 Dose: 5 mls/min Documented By: KAMILA Sodium Chloride (Nss) 1,000 mls @ 999 mls/hr IV .Q1H1M ONE Stop: 11/18/24 12:40 Last Infusion: 11/18/24 15:54 Dose: Infused Documented By: Admin: 11/18/24 11:42 Dose: 999 mls/hr Documented By: KAMILA Ioversol (Optiray 350) Confirm Administered Dose 1 ml .ROUTE .STK-MED ONE Stop: 11/18/24 12:02 Last Admin: 11/18/24 13:25 Dose: 240 ml Documented By: EDI Midazolam HCl (Midazolam Hcl 1 Mg/Ml 2ml Vial) Confirm Administered Dose 2 mg .ROUTE .ST-MED ONE Stop: 11/18/24 11:59 Last Admin: 11/18/24 13:24 Dose: 2 mg Documented By: EDI Morphine Sulfate (Morphine Sulfate 2 Mg/Ml Carp) Confirm Administered Dose 2 mg .ROUTE .STK-MED ONE Stop: 11/18/24 13:56 Last Admin: 11/18/24 13:56 Dose: 2 mg Documented By: AARON Nicardipine HCl (Nicardipine Hcl Inj 2.5 Mg/Ml 10 Ml Amp) Confirm Administered Dose 25 mg .ROUTE .ST-MED ONE Stop: 11/18/24 11:59 Last Admin: 11/18/24 12:28 Dose: 25 mg Documented By: SUSIE Nicardipine HCl (Nicardipine 2,000 Mcg/20 Ml Syr) Confirm Administered Dose 2,000 mcg .ROUTE .STK-MED ONE Stop: 11/18/24 11:59 Last Admin: 11/18/24 12:29 Dose: 2,000 mcg Documented By: SUSIE Nitroglycerin/Dextrose (Nitroglycerin/D5w 100mcg/Ml 20ml Syr) Confirm Administered Dose 2,000 mcg .ROUTE .STK-MED ONE Stop: 11/18/24 12:00 Last Admin: 11/18/24 12:29 Dose: 2,000 mcg Documented By: SUSIE Ondansetron HCl (Ondansetron Inj 2 Mg/Ml 2 Ml Vial) Confirm Administered Dose 4 mg .ROUTE .STK-MED ONE Stop: 11/18/24 11:39 Last Admin: 11/18/24 11:44 Dose: Not Given Documented By: KAMILA Ondansetron HCl (Ondansetron Inj 2 Mg/Ml 2 Ml Vial) 4 mg IV NOW STA Stop: 11/18/24 11:40 Last Admin: 11/18/24 11:41 Dose: 4 mg Documented By: KAMILA Pantoprazole Sodium (Pantoprazole 40 Mg Tab) Confirm Administered Dose 40 mg .ROUTE .STK-MED ONE Stop: 11/18/24 11:39 Last Admin: 11/18/24 11:44 Dose: Not Given Documented By: KAMILA Pantoprazole Sodium (Pantoprazole 40 Mg/10 Ml Ivp) Confirm Administered Dose 40 mg IV .STK-MED ONE Stop: 11/18/24 11:40 Last Admin: 11/18/24 11:44 Dose: Not Given Documented By: KAMILA Phenylephrine HCl (Phenylephrine 100mcg/Ml 5ml Syr) Confirm Administered Dose 100 mcg .ROUTE .STK-MED ONE Stop: 11/18/24 12:17 Last Admin: 11/18/24 13:28 Dose: Not Given Documented By: EDI Ticagrelor (Ticagrelor 90 Mg Tab) 180 mg PO ONE ONE Stop: 11/18/24 11:44 Last Admin: 11/18/24 11:48 Dose: 180 mg Documented By: KAMILA Imaging Data Radiologist's Impression: Chest X-Ray 11/18/24 11:39 XR chest 1V portable CLINICAL HISTORY: Chest pain, nonspecific COMPARISON STUDY: 11/18/2022 FINDINGS: There is mild cardiomegaly without pulmonary vascular congestion. There is interval prominence of the right hilum. No consolidation, pleural effusion, or pneumothorax. There are old healed fractures at the left upper ribs. IMPRESSION: 1. Interval prominence of the right hilum. Differential diagnosis includes artifact, lymphadenopathy, and mass. Follow-up chest CT recommended. 2. No other acute findings seen. ACT 112: Positive. There are findings on this exam that require communication between the performing entity and the patient following Patient Test Result Information Act ([place] Act 112) guidelines. Electronically signed by: Tonny Min M.D. 11/18/2024 12:03 PM Discharge Plan Visit Data Chief Complaint: Chest Pain Stated Complaint: CHEST PAIN ED Provider: Sharon Lewis Discharge Problem: Chest pain, ST elevation (STEMI) myocardial infarction, Tobacco abuse Patient Disposition: Admitted As Inpatient Discharge Instructions Interventions: ED Discharge Assessment Last Done: 11/18/24 12:11
--- NOTE | 2024-11-18 11:53 | Pre Anesthesia Assessment ---
Date of Service November 18, 2024 Pre Sedation Assessment Vital Signs Temp Pulse Resp BP Pulse Ox O2 Del Method 11/18/24 11:39 96 Room Air 11/18/24 11:39 96 Room Air 11/18/24 11:33 96 Room Air 11/18/24 11:33 90 11/18/24 11:30 96 Room Air 11/18/24 11:30 36.8 C 96 H 20 105/73 96 Room Air Cardiovascular RRR, no murmur, no edema Respiratory normal respiratory effort, lungs clear to auscultation Pre-Sedation Airway Assessment Smoking Status: Current every day smoker mallampati 2 ASA 4 Notes The planned sedation has been discussed with the patient. Informed Consent was obtained. I have identified the patient, determined the appropriateness of sedation and have assessed the patient immediately prior to the procedure. All medicine(s) and interventions are by my order.
[2024-11-18 11:57] LABS: Basophils # (auto) 0.04 K/uL (0.00-0.20); Basophils % (auto) 0.2 %; Eosinophils # (auto) 0.01 K/uL (0.00-0.50); Eosinophils % (auto) 0.1 %; Hematocrit (blood only) 36.2 % (37.0-47.0); Hemoglobin 12.1 g/dl (12.0-16.0); Immature Granulocytes % (auto) 0.6 %; Lymphocytes # (auto) 1.93 K/uL (1.20-3.40); Lymphocytes % (auto) 11.6 %; Mean Corpuscular Hemoglobin 28.8 pg (25.0-34.0); Mean Corpuscular Hgb Conc 33.4 g/dL (32.0-36.0); Mean Corpuscular Volume 86.2 fL (80.0-100.0); Mean Platelet Volume 11.6 fL (9.4-12.4); Monocytes # (auto) 1.42 K/uL (0.11-0.59); Monocytes % (auto) 8.5 %; Neutrophils # (auto) 13.18 K/uL (1.40-6.50); Platelet Count 256 K/uL (130-400); RDW Coefficient of Variation 12.7 % (11.5-14.5); RDW Standard Deviation 39.8 fL (36.4-46.3); White Blood Count 16.68 K/ul (4.8-10.8)
[2024-11-18 12:04] LABS: iSTAT Creatinine 0.8 mg/dl (0.6-1.3); iSTAT Hemoglobin 12.2 g/dl (12.0-16.0); iSTAT Ionized Calcium 1.07 mmol/l (1.12-1.32); iSTAT Potassium 4.3 mmol/L (3.3-5.0)
--- NOTE | 2024-11-18 12:05 | XRay Report ---
XR chest 1V portable CLINICAL HISTORY: Chest pain, nonspecific COMPARISON STUDY: 11/18/2022 FINDINGS: There is mild cardiomegaly without pulmonary vascular congestion. There is interval promine nce of the right hilum. No consolidation, pleural effusion, or pneumothorax. There are old healed fra ctures at the left upper ribs. IMPRESSION: 1. Interval prominence of the right hilum. Differential diagnosis includes artifact, lymphadenopathy, and mass. Follow-up chest CT recommended. 2. No other acute findings seen. ACT 112: Positive. There are findings on this exam that require communication between the performing entity and the patient following Patient Test Result Information Act ([place] Act 112) guidelines. Electronically signed by: Tonny Min M.D. 11/18/2024 12:03 PM
[2024-11-18 12:12] LABS: Albumin Globulin Ratio 1.3 (0.9-2); Albumin Level 3.8 gm/dl (3.4-5.0); BUN Creatinine Ratio 21.1 (10-20); Bilirubin,Total 0.5 mg/dl (0.2-1.0); Calcium 8.9 mg/dl (8.6-10.3); Creatinine Clr Calc Pharmacy 80.9 ml/min; Globulin 2.9 gm/dl (2.5-4.0); Magnesium 1.7 mg/dl (1.7-2.4); Potassium 3.7 mmol/L (3.5-5.1); Total Protein 6.7 gm/dl (6.0-8.3)
[2024-11-18 12:22] LABS: INR 1.1 (0.9-1.1); Partial Thromboplastin Time 28 Seconds (21-31); Prothrombin Time 11.9 Seconds (9.0-12.0)
[2024-11-18 12:27] LABS: Thyroid Stimulating Hormone 1.699 uIu/ml (0.300-4.500)
[2024-11-18] MEDS: niCARdipine HCL INJ 2.5 MG/ML 10 ML AMP ONE (12:28)
[2024-11-18] MEDS: diphenhydrAMINE 50 MG/ML VIAL ONE (12:29)
[2024-11-18] MEDS: NITROGLYCERIN/D5W 100MCG/ML 20ML SYR ONE (12:29)
[2024-11-18] MEDS: niCARdipine 2,000 MCG/20 ML SYR ONE (12:29)
[2024-11-18 12:44] LABS: Troponin I High Sensitivity 30808.5 pg/ml (0-14)
--- NOTE | 2024-11-18 13:02 | Electrocardiogram Report ---
Test Reason : Blood Pressure : */* mmHG Vent. Rate : 93 BPM Atrial Rate : 93 BPM P-R Int : 136 ms QRS Dur : 110 ms QT Int : 390 ms P-R-T Axes : 56 3 134 degrees QTcB Int : 484 ms Normal sinus rhythm Minimal voltage criteria for LVH, may be normal variant Acute Anteroseptal infarct T wave abnormality, consider lateral ischemia Abnormal ECG When compared with ECG of 18-Nov-2022 13:13, Acute Anteroseptal infarct is now Present Confirmed by Dariusz Thapa ([id number]) on 11/18/2024 1:02:37 PM Referred By: Confirmed By: Dariusz Thapa
[2024-11-18] MEDS: MIDAZOLAM HCL 1 MG/ML 2ML VIAL ONE (13:24)
[2024-11-18] MEDS: OPTIRAY 350 ONE (13:25)
--- NOTE | 2024-11-18 13:26 | Post Anesthesia Assessment ---
Date of Service November 18, 2024 Post Sedation Assessment Vital Signs Temp Pulse Pulse Resp BP BP Pulse Ox 11/18/24 11:55 98 H 18 105/80 96 11/18/24 11:39 96 11/18/24 11:39 96 11/18/24 11:33 96 11/18/24 11:33 90 11/18/24 11:30 96 11/18/24 11:30 36.8 C 96 H 20 105/73 96 O2 Del Method 11/18/24 11:55 Room Air 11/18/24 11:39 Room Air 11/18/24 11:39 Room Air 11/18/24 11:33 Room Air 11/18/24 11:33 11/18/24 11:30 Room Air 11/18/24 11:30 Room Air Recovery Score Activity: Moves 4 extremities Respiration: Deep Breath/Cough Circulation: +/-20% PreAnes Value Consciousness: Fully Awake Oxygen Saturation: > 92% On Room Air Discharge Sedation Level of Care: Fast Track Phase II Post Sedation Plan On clinical assessment, the patient appears to have tolerated the sedation without complications. Patient is recovering as anticipated. Patient will continue to be monitored by nursing and may be discharged when sedation discharge criteria are met per below protocol. Upon Completions of procedure up to 15 minutes continue every 5 minute vital signs and the P.A.R. score; then discharge to a Phase I or Fast Track to Phase II per the following guidelines: * Discharge Patient to appropriate Phase II area if PAR is 8 or greater or return to pre- procedure baseline. The post - procedure orders will be as directed. * If PAR score is less than 8 or not return to pre-procedure baseline then patient will follow Phase I monitoring till PAR is reached for Phase II. The Phase I may be done in procedure room or may call to secure a Phase I area. * If naloxone or flumazenil are used for reversal, hold in Phase I for continued monitoring from when last reversal dose was given for a minimum of 60 minutes or longer pending the nurse and/or physician discretion of patient condition before discharge to Phase II. Please call the Sedation Physician to re-evaluate and complete post-note for discharge to Phase II area. Do NOT discharge from procedure sedation or Phase 1 until post- sedation evaluation note is complete by procedure /sedation MD Sedation Discharge Instructions to be given to the patient at discharge to home. [facility] Procedure Codes (Charges) Indication for Procedure Indication for procedure: STEMI Sedation/Anesthesia Procedure 1: Sedation/Anesthesia: 45131 Mod Sedation by the same physician;Init15 Min Child Age 5 & Up (Initial 15 minutes, start time 1203) Total Sedation Time (minutes): 79 Procedure 2: Sedation/Anesthesia: 14860 Mod Sedation by the same physician; Ea [id number] Minutes (Additional 64 minutes, end time 1322) Total Sedation Time (minutes): 79
[2024-11-18] MEDS: ATROPINE SULFATE 0.1 MG/ML 10ML SYR IV ONE ×2 (13:27→13:28)
[2024-11-18] MEDS: HEPARIN (PORCINE) 1000 UNIT/ML 10 ML (CATH LAB USE ONLY) ONE (13:27)
[2024-11-18] MEDS: AMIODARONE 150MG / 100ML D5W (CATH LAB USE ONLY) IV ONE (13:28)
[2024-11-18] MEDS: PHENYLEPHRINE 100MCG/ML 5ML SYR ONE (13:28)
[2024-11-18] MEDS: MoRPHine SULFATE 2 MG/ML CARP ONE (13:56)
--- NOTE | 2024-11-18 14:08 | History & Physical Report ---
Date of Service November 18, 2024 Assessment & Plan (1) Chest pain: (2) ST elevation (STEMI) myocardial infarction: Plan This is a 59 yr old F who has a significant PMH of COPD, HTN, nocturnal hypoxemia, HLD, hypothyroidism, GERD, fibromyalgia, hx of AMY, depression with anxiety, ptsd, hx of cdiff, tobacco use disorder who presents to ED 2/2 chest pain. #Chest Pain #ACS STEMI admit to ICU pt is s/p cardiac cath with NAMAN x 1 further management per interventional cardiology obtain echo, trend trops til peak, lipid panel, a1c in a.m. He has been started on ASA, Statin, Metoprolol and Brilinta #HTN Per outpt review previously was not on any antihypertensive #Transaminitis AST 224, ALT 55, repeat lfts in a.m will obtain RUQ US #COPD: no acute exac continue home inhalers encourage smoking cessation #Tobacco abuse encourage smoking cessation DVT ppx: Pt initially on heparin and loaded with brilinta, can consider chemical ppx in a.m. FULL CODE PCP: Dr. Cruz Dispo: admit to ICU for intensive cardiac monitoring Pt was seen and examined in collaboration with Dr. Sierra, please see addendum I spent a total of 76 minutes coordinating, documenting and providing care for this patient excluding time spent in the performance of separately billed services or time spent by another provider/QHP. History of Present Illness Chief Complaint: Chest Pain. Primary Care Provider: Ninfa Cruz, DO This is a 59 yr old F who has a significant PMH of COPD, HTN, nocturnal hypoxemia, HLD, hypothyroidism, GERD, fibromyalgia, hx of AMY, depression with anxiety, ptsd, hx of cdiff, tobacco use disorder who presents to ED 2/2 chest pain. Pt arrived via EMS after developing midsternal chest pain at the bus stop. Chest pain radiated to her Left chest and arm. Pain was worse with movement and breathing. She reports having pain for approx 2-3 days. She has tried tylenol, motrin w/o relief. She has been getting nauseated and reporting headaches. 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 Initial ECG concerning for developing anterior septal MO. In cardiac trestle mainternance laborer she underwent a stent to her LAD and had another calcified lesion that was not amenable to PCI. She will be admitted to ICU for on going cardiac critical care. Post operatively she reports 5/10 CP that is improving. She denies f/c/s, dizziness, lightheaded, sob, n/v/d, abd pain. She reports + cardiac hx in her mother and sister. Unknown age. She is a 1/2ppd smoker. She denies ETOH of drug use. Allergies Allergy/AdvReac Type Severity Reaction Status Date / Time clavulanic acid Allergy Intermediate Rash Verified 11/20/22 13:02 clindamycin Allergy Intermediate Rash and Verified 11/20/22 13:02 blisters doxycycline Allergy Intermediate Nausea/Vomi Verified 11/20/22 13:02 ting mold Allergy Unknown Unknown Verified 11/20/22 13:02 rabeprazole Allergy Unknown Rash Verified 11/20/22 13:02 Home Medications Medication Instructions Recorded Confirmed Type albuterol sulfate 90 mcg/actuation 2 puff inhalation DIRECTED PRN 10/26/18 11/18/24 History aerosol inhaler (Ventolin HFA) Shortness Of Breath Or Wheezing levothyroxine 75 mcg tablet 75 mcg PO QAM 10/26/18 11/18/24 History dexlansoprazole 60 mg 60 mg PO QAM 09/21/19 11/18/24 History capsule,biphase delayed release (Dexilant) fluticasone propionate 115 2 puff inhalation Q12H 11/18/24 11/18/24 History mcg-salmeterol 21 mcg/actuation HFA inhaler (Advair HFA) pregabalin 225 mg capsule (Lyrica) 225 mg PO BID 11/18/24 11/18/24 History quetiapine 25 mg tablet 25 mg PO Q8H PRN Anxiety 11/18/24 11/18/24 History sucralfate 100 mg/mL oral 10 ml PO ACHS 11/18/24 11/18/24 History suspension venlafaxine 75 mg capsule,extended 76 mg PO DAILY 11/18/24 11/18/24 History release 24 hr Past Med/Surg History Problem List (Updated 11/18/24 @ 16:16 by Terry Hernandez MD, PhD) Ischemic cardiomyopathy Tobacco abuse (Acute) ST elevation (STEMI) myocardial infarction (Acute) Chest pain (Acute) 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 difficile colitis Depression IBS (irritable bowel syndrome) Gastroparesis Vertigo Surgical History Hx of tubal ligation History of partial colectomy History of cholecystectomy Social History Smoking Status: Current every day smoker Tobacco Type: Cigarettes Cigarettes Per Day: 20; Hx Alcohol Use: No Hx Substance Use: Yes Last Used Substance: Unknown Preferred Language: French Communication Ability: Effective Sewage Disposal Worker Required: No Beliefs That Will Affect Care: None Current Living Situation: Spouse Feels Safe at Home: Yes Gender Identity: Female Assistive Devices: Glasses Review of Systems Review of Systems: All systems reviewed & are unremarkable except as noted in HPI & below Physical Exam Physical Exam: constitutional: Thin, F, lying in bed, vitals as above, NAD, sitting up in bed, pleasant, conversing easily Head: Normocephalic, Atraumatic Eyes: PERRL, conjunctivae normal, anicteric sclerae ENMT: external ear and nose normal, oropharynx normal dry membranes, poor dentition Neck: trachea midline, no thyromegaly normal visual inspection Respiratory: normal respiratory effort, lungs clear to auscultation, no wheeze, rales, rhonchi. Cardiovascular: RRR, no murmur, no edema Vessels: no JVD or carotid bruit Chest: normal inspection of chest +RUE radial band, no evidence of hematoma Abdomen: normal bowel sounds, soft, nontender, no hepatosplenomegaly Musculoskeletal: no cyanosis or clubbing Skin: no rashes, warm and dry normal turgor Neurologic: PERRL, EOMI, accommodation nl, no face palsy, no dysarthria CN's II-XI intact bilaterally and moves all extremities Psychiatric: A+Ox3, euthymic affect Lymphatic: no cervical or axillary lymphadenopathy : deferred Results & Data Results & Data Vital Signs (Past 12 Hours) Vital Signs Temp Pulse Pulse Resp BP BP Pulse Ox 11/18/24 11:55 98 H 18 105/80 96 11/18/24 11:39 96 11/18/24 11:39 96 11/18/24 11:33 96 11/18/24 11:33 90 11/18/24 11:30 96 11/18/24 11:30 36.8 C 96 H 20 105/73 96 O2 Del Method 11/18/24 11:55 Room Air 11/18/24 11:39 Room Air 11/18/24 11:39 Room Air 11/18/24 11:33 Room Air 11/18/24 11:33 11/18/24 11:30 Room Air 11/18/24 11:30 Room Air Laboratory Results I have independently reviewed and interpreted patient's admitting labs including CBC, CMP, PTT, PT/INR, mag, ck, tsh, lipase and troponin. Diagnostic Findings Chest X-Ray 11/18/24 11:39 XR chest 1V portable CLINICAL HISTORY: Chest pain, nonspecific COMPARISON STUDY: 11/18/2022 FINDINGS: There is mild cardiomegaly without pulmonary vascular congestion. There is interval prominence of the right hilum. No consolidation, pleural effusion, or pneumothorax. There are old healed fractures at the left upper ribs. IMPRESSION: 1. Interval prominence of the right hilum. Differential diagnosis includes artifact, lymphadenopathy, and mass. Follow-up chest CT recommended. 2. No other acute findings seen. ACT 112: Positive. There are findings on this exam that require communication between the performing entity and the patient following Patient Test Result Information Act ([place] Act 112) guidelines. Electronically signed by: Tonny Min M.D. 11/18/2024 12:03 PM Medications Administered Medication List Fentanyl Citrate (Fentanyl Citrate Pf 100 Mcg/2 Ml Vial) 50 mcg IV Q15M PRN PRN Reason: Pain Stop: 12/02/24 11:38 Last Admin: 11/18/24 13:29 Dose: 75 mcg Documented By: Admin: 11/18/24 11:42 Dose: 50 mcg Documented By: KAMILA Discontinued Medications Amiodarone HCl/Dextrose (Amiodarone 150mg / 100ml D5w (Station Helper Use Only)) Confirm Administered Dose 150 mg IV .STK-MED ONE Stop: 11/18/24 12:17 Last Admin: 11/18/24 13:28 Dose: Not Given Documented By: EDI Aspirin (Aspirin Chew 324 Mg) Confirm Administered Dose 324 mg .ROUTE .STK-MED ONE Stop: 11/18/24 11:39 Last Admin: 11/18/24 11:44 Dose: Not Given Documented By: KAMILA Aspirin (Aspirin Chew 324 Mg) 324 mg PO NOW STA Stop: 11/18/24 11:40 Last Admin: 11/18/24 11:41 Dose: 324 mg Documented By: KAMILA Atropine Sulfate (Atropine Sulfate 0.1 Mg/Ml 10ml Syr) Confirm Administered Dose 1 mg IV .STK-MED ONE Stop: 11/18/24 12:15 Last Admin: 11/18/24 13:27 Dose: Not Given Documented By: EDI Atropine Sulfate (Atropine Sulfate 0.1 Mg/Ml 10ml Syr) Confirm Administered Dose 1 mg IV .STK-MED ONE Stop: 11/18/24 12:15 Last Admin: 11/18/24 13:28 Dose: Not Given Documented By: EDI Diphenhydramine HCl (Diphenhydramine 50 Mg/Ml Vial) Confirm Administered Dose 50 mg .ROUTE .STK-MED ONE Stop: 11/18/24 12:05 Last Admin: 11/18/24 12:29 Dose: 25 mg Documented By: EDI Epinephrine HCl (Epinephrine 1.5" Ndl 0.1 Mg/Ml Syr) Confirm Administered Dose 1 mg IV .STK-MED ONE Stop: 11/18/24 12:15 Last Admin: 11/18/24 13:28 Dose: Not Given Documented By: EDI Fentanyl Citrate (Fentanyl Citrate Pf 100 Mcg/2 Ml Vial) Confirm Administered Dose 100 mcg .ROUTE .STK-MED ONE Stop: 11/18/24 11:39 Last Admin: 11/18/24 11:44 Dose: Not Given Documented By: KAMILA Fentanyl Citrate (Fentanyl Citrate Pf 100 Mcg/2 Ml Vial) Confirm Administered Dose 100 mcg .ROUTE .STK-MED ONE Stop: 11/18/24 11:59 Last Admin: 11/18/24 13:27 Dose: Not Given Documented By: EDI Heparin Sodium (Porcine) (Heparin Sod (Porcine) 1000 Unit/Ml) 5,000 units IV NOW ONE Stop: 11/18/24 11:47 Last Admin: 11/18/24 11:48 Dose: 5,000 units Documented By: KAMILA Co-signed By: GARY Heparin Sodium (Porcine) (Heparin (Porcine) 1000 Unit/Ml 10 Ml (Station Helper Use Only)) Confirm Administered Dose 10,000 units .ROUTE .STK-MED ONE Stop: 11/18/24 11:59 Last Admin: 11/18/24 13:27 Dose: 4,500 units Documented By: EDI Heparin Sodium/Sodium Chloride (Heparin In Nss Infusion 1000 Unit/500 Ml (2 U/Ml) Bag) Confirm Administered Dose 3,000 units IV .STK-MED ONE Stop: 11/18/24 11:59 Last Admin: 11/18/24 13:28 Dose: Not Given Documented By: EDI Pantoprazole Sodium (Protonix) 40 mg in 10 mls @ 5 mls/min IV NOW ONE Stop: 11/18/24 11:40 Last Admin: 11/18/24 11:42 Dose: 5 mls/min Documented By: KAMILA Sodium Chloride (Nss) 1,000 mls @ 999 mls/hr IV .Q1H1M ONE Stop: 11/18/24 12:40 Last Admin: 11/18/24 11:42 Dose: 999 mls/hr Documented By: KAMILA Ioversol (Optiray 350) Confirm Administered Dose 1 ml .ROUTE .STK-MED ONE Stop: 11/18/24 12:02 Last Admin: 11/18/24 13:25 Dose: 240 ml Documented By: EDI Midazolam HCl (Midazolam Hcl 1 Mg/Ml 2ml Vial) Confirm Administered Dose 2 mg .ROUTE .STK-MED ONE Stop: 11/18/24 11:59 Last Admin: 11/18/24 13:24 Dose: 2 mg Documented By: EDI Nicardipine HCl (Nicardipine Hcl Inj 2.5 Mg/Ml 10 Ml Amp) Confirm Administered Dose 25 mg .ROUTE .STK-MED ONE Stop: 11/18/24 11:59 Last Admin: 11/18/24 12:28 Dose: 25 mg Documented By: SUSIE Nicardipine HCl (Nicardipine 2,000 Mcg/20 Ml Syr) Confirm Administered Dose 2,000 mcg .ROUTE .STK-MED ONE Stop: 11/18/24 11:59 Last Admin: 11/18/24 12:29 Dose: 2,000 mcg Documented By: SUISE Nitroglycerin/Dextrose (Nitroglycerin/D5w 100mcg/Ml 20ml Syr) Confirm Administered Dose 2,000 mcg .ROUTE .STK-MED ONE Stop: 11/18/24 12:00 Last Admin: 11/18/24 12:29 Dose: 2,000 mcg Documented By: SUSIE Ondansetron HCl (Ondansetron Inj 2 Mg/Ml 2 Ml Vial) Confirm Administered Dose 4 mg .ROUTE .STK-MED ONE Stop: 11/18/24 11:39 Last Admin: 11/18/24 11:44 Dose: Not Given Documented By: KAMILA Ondansetron HCl (Ondansetron Inj 2 Mg/Ml 2 Ml Vial) 4 mg IV NOW STA Stop: 11/18/24 11:40 Last Admin: 11/18/24 11:41 Dose: 4 mg Documented By: KAMILA Pantoprazole Sodium (Pantoprazole 40 Mg Tab) Confirm Administered Dose 40 mg .ROUTE .STK-MED ONE Stop: 11/18/24 11:39 Last Admin: 11/18/24 11:44 Dose: Not Given Documented By: KAMILA Pantoprazole Sodium (Pantoprazole 40 Mg/10 Ml Ivp) Confirm Administered Dose 40 mg IV .STK-MED ONE Stop: 11/18/24 11:40 Last Admin: 11/18/24 11:44 Dose: Not Given Documented By: KAMILA Phenylephrine HCl (Phenylephrine 100mcg/Ml 5ml Syr) Confirm Administered Dose 100 mcg .ROUTE .STK-MED ONE Stop: 11/18/24 12:17 Last Admin: 11/18/24 13:28 Dose: Not Given Documented By: EDI Ticagrelor (Ticagrelor 90 Mg Tab) 180 mg PO ONE ONE Stop: 11/18/24 11:44 Last Admin: 11/18/24 11:48 Dose: 180 mg Documented By: KAMILA ECG Additional Comments: I have independently reviewed and interpreted patient's admitting EKG which revealed: NSR 93 bpm with developing anterior MO qtc 484ms COVID-19 Results Results COVID-19 Adm Lab Results: RBC 4.20 M/uL (4.20-5.40) 11/18/24 WBC 16.68 K/ul (4.8-10.8) H 11/18/24 Hgb 12.1 g/dl (12.0-16.0) 11/18/24 Hct 36.2 % (37.0-47.0) L 11/18/24 Plt Count 256 K/uL (130-400) 11/18/24 Neutrophils (%) (Auto) 79.0 % 11/18/24 Lymphocytes (%) (Auto) 11.6 % 11/18/24 Monocytes # (Auto) 1.42 K/uL (0.11-0.59) H 11/18/24 Eosinophils # (Auto) 0.01 K/uL (0.00-0.50) 11/18/24 Immature Granulocyte % (Auto) 0.6 % 11/18/24 Neutrophils # (Auto) 13.18 K/uL (1.40-6.50) H 11/18/24 Lymphocytes # (Auto) 1.93 K/uL (1.20-3.40) 11/18/24 Monocytes # (Auto) 1.42 K/uL (0.11-0.59) H 11/18/24 Eosinophils # (Auto) 0.01 K/uL (0.00-0.50) 11/18/24 Basophils # (Auto) 0.04 K/uL (0.00-0.20) 11/18/24 Immature Granulocyte # (Auto) 0.10 K/uL (0.01-0.20) 5 Na 132 mmol/L (136-145) L 11/18/24 K 3.7 mmol/L (3.5-5.1) 11/18/24 Cl 98 mmol/L (98-107) 11/18/24 CO2 33 mmol/L (21-32) H 11/18/24 Anion Gap 1 (3-11) L 11/18/24 BUN 15 mg/dl (6-23) 11/18/24 Creatinine 0.71 mg/dl (0.6-1.2) 11/18/24 BUN/Creatinine Ratio 21.1 (10-20) H 11/18/24 Glucose Level 112 mg/dl (70-99(Fasting)) H 11/18/24 Ca 8.9 mg/dl (8.6-10.3) 11/18/24 Total Bilirubin 0.5 mg/dl (0.2-1.0) 11/18/24 AST/SGOT 224 U/L (13-39) H 11/18/24 ALT/SGPT 55 U/L (7-52) H 11/18/24 Alkaline Phosphatase 61 U/L (34-104) 11/18/24 Total Protein 6.7 gm/dl (6.0-8.3) 11/18/24 Albumin 3.8 gm/dl (3.4-5.0) 11/18/24 Globulin 2.9 gm/dl (2.5-4.0) 11/18/24 Albumin/Globulin Ratio 1.3 (0.9-2) 11/18/24 Total CK 1279 U/L (26-192) H 11/18/24 PTT 28 Seconds (21-31) 11/18/24 INR 1.1 (0.9-1.1) 11/18/24 Triglycerides Level 63 mg/dl (0-150) 11/18/24 Chest X-Ray 11/18/24 Code Status & VTE Plan Code Status FULL CODE VTE Prophylaxis Plan VTE Prophylaxis will be ordered: Yes Supervising Physician Co-Signing Physician Notes Attending Addendum: Case reviewed with the advanced practitioner. I have personally performed a history and physical examination on the patient. I have reviewed the advanced practitioner's documentation on the date of service referenced in note, and I agree with, and take responsibility for the plan of care. please refer to her notes for full details patient seen and examined, records reviewed by myself as well on exam, patient seen resting in bed, sleeping, easily awakened states she still has some chest discomfort, mild no shortness of breath, nausea, dizziness, palpitations no other symptoms VS noted and reviewed oriented x3, not in distress, speaks in sentences with no effort nor accessory muscle use normal rate, regular rhythm, no murmurs clear breath sounds bilaterally non distended, soft, nontender no bipedal edema, erythema, warmth no neuro deficits all labs, imaging noted and reviewed ASSESSMENT AND PLAN> STEMI s/p Cardiac Cath 100% occluded mid LAD. Multiple attempts to cross with a wire using various techniques and various wires was unsuccessful. In attempting to do so we also had some disruption of the ostial to proximal diagonal which we treated with implantation of a single drug-eluting stent with favorable angiographic results. Echo: Severe hypokinesis to akinesis of the LAD territory, grade 2 diastolic dysfunction, EF 30 to 35% started on Aspirin, Brilinta, Metoprolol, Lipitor other diagnoses and plan of care as per advanced practitioner's notes I spent a total of 35 minutes coordinating, documenting, and providing care for this patient, excluding time spent in the performance of separately billed services or time spent by another provider/QHP. David Sierra MD
--- NOTE | 2024-11-18 15:21 | XCELERA ---
[id number]
[2024-11-18] MEDS ORDERED: ALBUTEROL HFA 8 GM INHALER INH PRN (15:36)
--- NOTE | 2024-11-18 15:41 | Electrocardiogram Report ---
Test Reason : Blood Pressure : */* mmHG Vent. Rate : 82 BPM Atrial Rate : 82 BPM P-R Int : 140 ms QRS Dur : 108 ms QT Int : 432 ms P-R-T Axes : 64 24 129 degrees QTcB Int : 504 ms Normal sinus rhythm Acute Anteroseptal infarct (cited on or before 18-Nov-2024) T wave abnormality, consider lateral ischemia Abnormal ECG When compared with ECG of 18-Nov-2024 11:31, No significant change Confirmed by Dariusz Thapa ([id number]) on 11/18/2024 3:41:34 PM Referred By: Confirmed By: Dariusz Thapa
--- NOTE | 2024-11-18 15:44 | Critical Care Consultation ---
Date of Consultation November 18, 2024 Assessment & Plan (1) ST elevation (STEMI) myocardial infarction: Plan Impression: 59-year-old female with history of chronic pain issues and methamphetamine abuse here with ST elevation myocardial infarction status post drug-eluting stent to the LAD. Echo shows depressed ejection fraction with regional wall motion abnormalities as well as moderate MR. Recommendations: 1. Acute coronary syndrome: Status post stent placement. Continue cardiology management. Dual antiplatelet agents. Metoprolol as tolerated by blood pressure and heart rate. Will add SUKHDEEP inhibitor and goal-directed therapy given her reduced ejection fraction. Patient will need cardiac rehab. Additional recommendations per cardiology 2. Leukocytosis: Suspect reactive. No evidence of infection acutely. Continue to follow clinically. 3. Hyponatremia: Mild. No recent labs. Will follow at this point in time. 4. Substance abuse: Patient should remain free of substance abuse in the future 5. Will defer DVT prophylaxis as the patient should be up and around relatively quickly. 6. CT scan with prominence in the right hilum. Unclear if this is related to patient rotation. Will obtain noncontrast CT of the chest to further evaluate. History of Present Illness Attending Physician: Terry Hernandez MD, PhD History of Present Illness Asked by hospitalist to assist in evaluation management this patient status post acute coronary syndrome and drug-eluting stent placement. History is obtained from discussion with the patient as well as review the electronic medical record. Patient is a 59-year-old female with a prior history of substance abuse and chronic pain who presented to the emergency room with complaints of chest discomfort. She had EKG findings concerning for anterior septal ischemia was taken to the [facility] where she underwent stenting to her LAD. She had a diagonal lesion as well which was unable to be traversed. Echocardiogram showed an EF of 30 to 35% with grade 2 diastolic dysfunction and moderate MR. She returns to the ICU hemodynamically stable but continuing to complain of some discomfort. It is unclear how much of her discomfort is related to her chronic pain issues and fibromyalgia versus coronary ischemia. Patient does not report any shortness of breath. No cough or sputum production. No nausea or vomiting Allergies Allergy/AdvReac Type Severity Reaction Status Date / Time clavulanic acid Allergy Intermediate Rash Verified 11/20/22 13:02 clindamycin Allergy Intermediate Rash and Verified 11/20/22 13:02 blisters doxycycline Allergy Intermediate Nausea/Vomi Verified 11/20/22 13:02 ting mold Allergy Unknown Unknown Verified 11/20/22 13:02 rabeprazole Allergy Unknown Rash Verified 11/20/22 13:02 Home Medications Medication Instructions Recorded Confirmed Type albuterol sulfate 90 mcg/actuation 2 puff inhalation DIRECTED PRN 10/26/18 11/18/24 History aerosol inhaler (Ventolin HFA) Shortness Of Breath Or Wheezing levothyroxine 75 mcg tablet 75 mcg PO QAM 10/26/18 11/18/24 History dexlansoprazole 60 mg 60 mg PO QAM 09/21/19 11/18/24 History capsule,biphase delayed release (Dexilant) fluticasone propionate 115 2 puff inhalation Q12H 11/18/24 11/18/24 History mcg-salmeterol 21 mcg/actuation HFA inhaler (Advair HFA) pregabalin 225 mg capsule (Lyrica) 225 mg PO BID 11/18/24 11/18/24 History quetiapine 25 mg tablet 25 mg PO Q8H PRN Anxiety 11/18/24 11/18/24 History sucralfate 100 mg/mL oral 10 ml PO ACHS 11/18/24 11/18/24 History suspension venlafaxine 75 mg capsule,extended 76 mg PO DAILY 11/18/24 11/18/24 History release 24 hr Patient History Medical History Positive urine drug screen Diverticulitis C. difficile colitis Depression IBS (irritable bowel syndrome) Gastroparesis Vertigo Surgical History (Updated 11/18/24 @ 14:05 by Cecilia Paredes PA-C) Hx of tubal ligation History of partial colectomy History of cholecystectomy Social History Smoking Status: Current every day smoker Tobacco Type: Cigarettes Cigarettes Per Day: 20; Hx Alcohol Use: No Hx Substance Use: Yes Last Used Substance: Unknown Preferred Language: [place] Communication Ability: Effective Coal Handling Supervisor Required: No Beliefs That Will Affect Care: None Current Living Situation: Spouse Feels Safe at Home: Yes Gender Identity: Female Assistive Devices: Glasses Review of Systems Review of Systems: Please refer to admission H&P. No additions or deletions Physical Exam Constitutional: WD/WN, vitals as above Neck: trachea midline, no thyromegaly Respiratory: normal respiratory effort, lungs clear to auscultation Cardiovascular: RRR, no murmur, no edema Gastrointestinal (Abdomen): normal bowel sounds, soft, nontender, no hepatosplenomegaly Musculoskeletal: Extremities: extremities normal to inspection Skin: no rashes, warm and dry Neurologic: Nonfocal exam Lymphatic: no cervical lymphadenopathy Results & Data Results & Data Vital Signs (Past 12 Hours) Vital Signs Temp Pulse Pulse Resp BP BP Pulse Ox 11/18/24 15:00 85 18 117/83 93 11/18/24 14:45 88 18 121/83 93 11/18/24 14:30 89 18 113/85 95 11/18/24 14:15 92 H 18 118/73 95 11/18/24 14:00 83 18 115/86 95 11/18/24 13:45 82 18 113/88 95 11/18/24 13:35 87 18 127/88 95 11/18/24 11:55 98 H 18 105/80 96 11/18/24 11:39 96 11/18/24 11:39 96 11/18/24 11:33 96 11/18/24 11:33 90 11/18/24 11:30 96 11/18/24 11:30 36.8 C 96 H 20 105/73 96 O2 Del Method 11/18/24 15:00 Room Air 11/18/24 14:45 Room Air 11/18/24 14:30 Room Air 11/18/24 14:15 Room Air 11/18/24 14:00 Room Air 11/18/24 13:45 Room Air 11/18/24 13:35 Room Air 11/18/24 11:55 Room Air 11/18/24 11:39 Room Air 11/18/24 11:39 Room Air 11/18/24 11:33 Room Air 11/18/24 11:33 11/18/24 11:30 Room Air 11/18/24 11:30 Room Air Critical Care Results & Data Vital Signs (Past 12 Hours) Vital Signs Temp Pulse Pulse Resp BP BP Pulse Ox 11/18/24 15:00 85 18 117/83 93 11/18/24 14:45 88 18 121/83 93 11/18/24 14:30 89 18 113/85 95 11/18/24 14:15 92 H 18 118/73 95 11/18/24 14:00 83 18 115/86 95 11/18/24 13:45 82 18 113/88 95 11/18/24 13:35 87 18 127/88 95 11/18/24 11:55 98 H 18 105/80 96 11/18/24 11:39 96 11/18/24 11:39 96 11/18/24 11:33 96 11/18/24 11:33 90 11/18/24 11:30 96 11/18/24 11:30 36.8 C 96 H 20 105/73 96 O2 Del Method 11/18/24 15:00 Room Air 11/18/24 14:45 Room Air 11/18/24 14:30 Room Air 11/18/24 14:15 Room Air 11/18/24 14:00 Room Air 11/18/24 13:45 Room Air 11/18/24 13:35 Room Air 11/18/24 11:55 Room Air 11/18/24 11:39 Room Air 11/18/24 11:39 Room Air 11/18/24 11:33 Room Air 11/18/24 11:33 11/18/24 11:30 Room Air 11/18/24 11:30 Room Air Lab & Micro Results (Past 24 Hours) RBC 4.20 M/uL (4.20-5.40) 11/18/24 WBC 16.68 K/ul (4.8-10.8) H 11/18/24 Hgb 12.1 g/dl (12.0-16.0) 11/18/24 Hct 36.2 % (37.0-47.0) L 11/18/24 MCV 86.2 fL (80.0-100.0) 11/18/24 MCH 28.8 pg (25.0-34.0) 11/18/24 MCHC 33.4 g/dL (32.0-36.0) 11/18/24 RDW Standard Deviation 39.8 fL (36.4-46.3) 11/18/24 RDW Coefficient of Variation 12.7 % (11.5-14.5) 11/18/24 Plt Count 256 K/uL (130-400) 11/18/24 MPV 11.6 fL (9.4-12.4) 11/18/24 Neutrophils (%) (Auto) 79.0 % 11/18/24 Lymphocytes (%) (Auto) 11.6 % 11/18/24 Monocytes # (Auto) 1.42 K/uL (0.11-0.59) H 11/18/24 Eosinophils # (Auto) 0.01 K/uL (0.00-0.50) 11/18/24 Immature Granulocyte % (Auto) 0.6 % 11/18/24 Neutrophils # (Auto) 13.18 K/uL (1.40-6.50) H 11/18/24 Lymphocytes # (Auto) 1.93 K/uL (1.20-3.40) 11/18/24 Monocytes # (Auto) 1.42 K/uL (0.11-0.59) H 11/18/24 Eosinophils # (Auto) 0.01 K/uL (0.00-0.50) 11/18/24 Basophils # (Auto) 0.04 K/uL (0.00-0.20) 11/18/24 Immature Granulocyte # (Auto) 0.10 K/uL (0.01-0.20) 5 Na 132 mmol/L (136-145) L 11/18/24 K 3.7 mmol/L (3.5-5.1) 11/18/24 Cl 98 mmol/L (98-107) 11/18/24 CO2 33 mmol/L (21-32) H 11/18/24 Anion Gap 1 (3-11) L 11/18/24 BUN 15 mg/dl (6-23) 11/18/24 Creatinine 0.71 mg/dl (0.6-1.2) 11/18/24 BUN/Creatinine Ratio 21.1 (10-20) H 11/18/24 Glu 112 mg/dl (70-99(Fasting)) H 11/18/24 Ca 8.9 mg/dl (8.6-10.3) 11/18/24 Total Bilirubin 0.5 mg/dl (0.2-1.0) 11/18/24 AST 224 U/L (13-39) H 11/18/24 ALT 55 U/L (7-52) H 11/18/24 Alkaline Phosphatase 61 U/L (34-104) 11/18/24 TP 6.7 gm/dl (6.0-8.3) 11/18/24 Albumin 3.8 gm/dl (3.4-5.0) 11/18/24 Globulin 2.9 gm/dl (2.5-4.0) 11/18/24 Albumin/Globulin Ratio 1.3 (0.9-2) 11/18/24 Mg 1.7 mg/dl (1.7-2.4) 11/18/24 11:30 Calcium Level 8.9 mg/dl (8.6-10.3) 11/18/24 11:30 Prothromb Time International Ratio 1.1 (0.9-1.1) 11/18/24 11:3 0 Diagnostic Findings (Past 24 Hours) Chest X-Ray 11/18/24 11:39 XR chest 1V portable CLINICAL HISTORY: Chest pain, nonspecific COMPARISON STUDY: 11/18/2022 FINDINGS: There is mild cardiomegaly without pulmonary vascular congestion. There is interval prominence of the right hilum. No consolidation, pleural effusion, or pneumothorax. There are old healed fractures at the left upper ribs. IMPRESSION: 1. Interval prominence of the right hilum. Differential diagnosis includes artifact, lymphadenopathy, and mass. Follow-up chest CT recommended. 2. No other acute findings seen. ACT 112: Positive. There are findings on this exam that require communication between the performing entity and the patient following Patient Test Result Information Act ([place] Act 112) guidelines. Electronically signed by: Tonny Min M.D. 11/18/2024 12:03 PM RT Ventilator Mngmt (Last Documented) Ventilator Ordered Settings Respiratory Rate 18 11/18/24 15:00 Ventilator - PT Measurements Respiratory Rate 18 Coding Level of Care Code 63820 IN/OBS CONSULT LVL 4,60M Diagnoses ST elevation (STEMI) myocardial infarction I21.3
[2024-11-18 16:05] LABS: Chol HDL Ratio 2.3 (0-5)
--- NOTE | 2024-11-18 16:06 | Cardiac Catheterization ---
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 Cardiac Status Clinical evaluation leading to the procedure CAD Presenation: STEMI Anginal Classification: CCS IV Heart Failure: No Cardiogenic Shock within 24 Hours: No Cardiac Arrest within 24 Hours: No Imaging Studies Past 6 Months: No Stress Studies Past 6 Months: No STEMI OR Non-STEMI Symptom Onset Date: 11/15/24 Symptom Onset Time: 07:00 Thrombolytics: No Coronary Anatomy Dominant: Right Left Main (% Stenosis): Normal LAD (% Stenosis): Mid (100%) D1 (% Stenosis): Proximal (30 to 40%) Circumflex (% Stenosis): Normal OM1 (% Stenosis): Normal RCA (% Stenosis): Normal R PDA (% Stenosis): Normal R PL1 (% Stenosis): Normal Diagnostic Physicians Name: Terry Hernandez MD, PhD Closure Device Percutaneous Entry Location: Radial Closure Device: Radial Band Recommendations: Medical Therapy and/or Counseling and PCI without planned CABG PCI Indication: PCI for STEMI - Unstable Reason For Delay in PCI:: Difficulty crossing culprit lesion Lesion Segment Name: D1 Culprit Artery: No Stenosis Prior to Rx (%): 70% plus thrombus Chronic Total Occlusion: No Pre-Procedure OLGA Flow: 3 Previously Treated Lesion: No Lesion Complexity: Non-High/Non-C Lesion Length (mm): 10 Thrombus Present: Yes Bifurcation Lesion: Yes Guidewire Across Lesion: Yes Lesion #2 Segment Name: Mid LAD Culprit Artery: Yes Stenosis Prior to Rx (%): 99-100% Chronic Total Occlusion: No (Possible) Pre-Procedure OLGA Flow: 0 Previously Treated Lesion: No Lesion Complexity: High/C Bifurcation Lesion: Yes Guidewire Across Lesion: No Intraprocedure Events Significant Disection: No Perforation: No Cardiac Cath Procedure Full Procedure Date November 18, 2024 Pre-Procedure Diagnosis Pre-Procedure Diagnosis: STEMI AUC Score AUC Score: 09 Post-Procedure Diagnosis Post-Procedure Diagnosis: Severe CAD, Successful PCI and Unsuccessful PCI Procedure(s) Performed Procedure(s) Performed: Coronary Angiography and Drug Eluting Stent Stock Digger Terry Hernandez MD, PhD Estimated Blood Loss Estimated Blood Loss: 10 cc Medication(s) Medication(s): Diphenhydramine, Fentanyl, Heparin, Lidocaine 1%, Nicardipine, Nitroglycerin and Versed Summary of Findings Brief description: Patient was brought to the cardiac catheterization suite where she was shaved and prepped in a sterile fashion. Sedated using IV Versed, diphenhydramine, and fentanyl. Soft tissues of the right wrist were anesthetized using 2 mL of 1% Xylocaine. The right radial artery was accessed with a modified Seldinger technique and a 6 Faroese radial artery glide sheath was placed. The radial artery was relatively small and we could not give any nicardipine or nitroglycerin because of baseline hypotension. We required a Wholey wire to advance all catheters because of the tortuosity in the innominate. Patient was provided IV heparin, Brilinta, and aspirin in the emergency prior to arrival. We checked ACT and provided additional heparin as needed throughout the case to maintain therapeutic anticoagulation. Left coronary angiography performed in orthogonal views with a 5 [place]ese [place] 4 diagnostic catheter. Right coronary angiography in orthogonal views with a 5 [place]ese [place] 4 diagnostic catheter. Diagnostic catheters were removed. Decision was made to proceed with complex PCI of the LAD plus or minus diagonal. a 5 Faroese EBU 3.5 guide catheter was used to engage the left main coronary. (A 6 Faroese initially tried but the radial artery was too small.) A BMW universal guidewire was advanced and attempts were made to cross the occluded segment of the LAD. These were unsuccessful. We were able to pass the guidewire into the diagonal. We next attempted to deflect a second BMW guidewire across the lesion in the LAD. Therefore, a 2.5 x 8 mm trek balloon was advanced over the first guidewire and positioned so that its proximal edge was just after the presumed ostium of the LAD occlusion. The second BMW was then introduced and once it got close to the area of interest the trek balloon was inflated to 2 maria elena. We then advanced the second wire hoping to deflect across the lesion. It only went about a millimeter in the correct direction but appeared to be subintimal. It was therefore pulled back and despite further attempts we were unable to cross the lesion. Therefore, the balloon was deflated and then removed. We reshaped the second BMW wire several times trying to cross the lesion but could not direct across the lesion. That wire was therefore removed. A [place] Blue wire was then introduced and shaped in the way we felt might be able to cross the lesion. Despite multiple attempts we were unsuccessful. Patient began to have more chest pain and angiography revealed the diagonal branch flow was reduced likely from multiple manipulations at its ostium. The [place] blue was removed and a 2.25 x 12 mm [place] drug-eluting stent was advanced over the first BMW. It was then positioned with its proximal edge at about the ostium of the diagonal. It was then deployed at 12 maria elena. While the balloon was up we readvanced the [place] blue hoping to deflect this wire across the lesion in the LAD but again this was unsuccessful. We then deflated the stent balloon. Angiography was performed. Sc[place] blue wire was removed. The BMW wire was also removed. A whisper 190 guidewire was introduced through the guide catheter. It also was not successful in crossing the LAD lesion. This despite many reshaping's and changes of the guide catheter position. The wire was therefore removed. We finally removed the EBU guide catheter and exchanged it for a 5 Faroese JL 3.5 guide catheter hoping this would give us a different angle to cross the lesion. We then attempted both the whisper wire and the BMW wire several times. It became abundantly clear that we would not be able to pass this occluded lesion and we were approaching radiation limit. Therefore, no further attempts were made to open this lesion. The guidewires were removed. The guide catheter was then removed. Fortunately the patient's chest discomfort was improved although not completely resolved. Radial artery sheath was removed. Hemostasis was obtained using a TR band. Pat ient remained hemodynamically stable and was returned to the recovery area. This ended the case. Coronary angiography findings: [id number] vessel bifurcating into LAD and circumflex. Mild luminal irregularities. [id number] and probably transapical. Proximal segment without disease. Gives a large caliber branching first diagonal which has diffuse mild disease. The LAD just after the ostium of the diagonal is 100% occluded. It fills partially late and has staining. This is the culprit lesion. OLGA 0 flow. LCx-medium to large caliber nondominant vessel. Travels in the AV groove giving a large branching OM1. No angiographically evident disease. RCA-this is a very large caliber and dominant vessel. Bifurcates distally into the PDA and multi branching posterior lateral. This reaches all the way to the apex. There is no more than scattered luminal irregularities in the RCA and its branches. PCI of diagonal 0% residual stenosis in the ostial to proximal diagonal. The vessel is tortuous and has diffuse mild disease. OLGA-3 flow post PCI No evidence of dissection or perforation Attempted PCI of mid LAD occlusion Unable to pass a guidewire across the occluded segment. Suspect occlusion is subacute or old. Unfortunately, the angle of the vessel after the diagonal takes a rather acute turn and we were unable to direct any guidewires across this lesion. The vessel distal to the occlusion has OLGA 0 flow. Summary: 1. 100% occluded mid LAD. Multiple attempts to cross with a wire using various techniques and various wires was unsuccessful. In attempting to do so we also had some disruption of the ostial to proximal diagonal which we treated with implantation of a single drug-eluting stent with favorable angiographic results. 2. Patient will remain on dual antiplatelet therapy with aspirin 81 mg daily and Brilinta 90 mg p.o. twice daily for at least 1 to 2 years. 3. Initiate guideline directed medical therapy for secondary prevention of coronary disease to include low-dose aspirin, high intensity statin therapy, beta-marek, plus or minus SUKHDEEP inhibitor/ARB as tolerated. 4. Suspect the LAD lesion was severely stenosed recently and then in the past 3 days or so completely occluded. Hemodynamics Rest Ao:: 88/68 mmHg Final Ao: 108/78 mmHg LV: Not performed Recommendations Recommendations: Medical Therapy and/or Counseling and PCI without planned CABG Radiation Exposure (mGy) 4242 mGy, fluoroscopy time 34.1 minutes Contrast (mls) 245 cc Anesthesia 2 mg Versed, 75 mcg fentanyl, 25 mg Benadryl IV. Start time 1203, end 1322 Procedural Complication(s) None Disposition ICU I attest to the content of the Intraoperative Record and any orders documented therein. Any exceptions are noted below. [facility] [place] Codes Cardiac Catheterization Procedure 1: Cardiovascular Cath Procedures: 55493 Coronaries Moderate Sedation Procedure 1: Sedation/Anesthesia: 15660 Mod Sedation by the same physician;Init15 Min Child Age 5 & Up (Initial 15 minutes, start 1203) Procedure 2: Sedation/Anesthesia: 23432 Mod Sedation by the same physician; Ea [id number] Minutes (Additional 64 minutes, and 1322) Stenting Procedure 1: Cardiovascular Stent Procedures: 51082 Perc transluminal revascularization of acute sub/total occl, aMI (LAD/diagonal) PG Care Time/CCT Total # of Minutes Spent Total Time Spent with Patient: Total time spent is greater than 50% in coordination of care (as documented) at patient's floor/unit and/or counseling patient:
--- NOTE | 2024-11-18 16:13 | Cardiology Consultation ---
Date of Consultation November 18, 2024 Assessment & Plan (1) ST elevation (STEMI) myocardial infarction: The echo shows thinning of the LAD territory myocardium plus akinesis in the mid and distal segments and the entire apex. This is suggestive of prior infarct in this area. She also has some hypokinetic areas which are severe and in the LAD distribution. However these areas are not thinned and therefore may be more of an acute or subacute area involved. My suspicion is that she sustained complete occlusion of the vessel in the past 3 days but that there was already severe stenosis and myocardial injury in the past. Unfortunately despite my best efforts I was unable to cross the lesion which is also suggestive that this is more of a chronic issue. Fortunately I was able to fix the diagonal issue caused in attempting to fix the LAD lesion. She will need to remain on dual antiplatelet therapy with aspirin 81 mg daily and Brilinta 90 mg p.o. twice daily for up to a year or 2. We will also need to initiate guideline directed medical therapy for secondary prevention of coronary disease. In addition to the low-dose aspirin that will include beta-marek, statin, plus or minus SUKHDEEP inhibitor/ARB. For today, I have started her on the beta-marek and statin but not an SUKHDEEP inhibitor or angiotensin receptor marek. Her blood pressure was on the low side and it may take a while before it recovers. She is at risk for mechanical complication of her occluded LAD and we need to be vigilant for this. (2) Dyslipidemia: Patient is high risk. High intensity statin therapy initiated with a atorvastatin 40 mg daily. We need to check a fasting lipid panel as well. (3) Ischemic cardiomyopathy: Echocardiogram shows severe LV systolic dysfunction EF is 30 to 35% at best. She is initiated on the beta-marek for today. She will not likely gain significant LV function without optimizing her medical therapy because we were unable to revascularize the LAD territory. She should be provided with a defibrillator vest prior to discharge if she is willing to wear it. Also, in addition to heart failure indicated beta-marek I would like to start her on Entresto/SUKHDEEP inhibitor/ARB depending upon her blood pressure and likelihood of tolerating the medication. Also, an SGLT2 inhibitor should be initiated prior to discharge. She will need a follow-up echocardiogram in 3 months and we should consider enrolling her in heart failure clinic if she develops volume overload. History of Present Illness Reason for Consultation: Chest pain ST elevations Attending Physician: Terry Hernandez MD, PhD History of Present Illness 59-year-old female presented to the emergency department at around 1130 this morning. At that time she had chest pain which she states started 2 to 3 days ago. It was fairly severe and continued so she decided to seek medical attention. EKG was obtained demonstrating ST elevations in the anteroseptal leads without any reciprocal ST depressions. She did have T wave inversions. She was provided aspirin, Brilinta, and heparin. A "heart alert" was called and after briefly discussing with her the findings on the EKG and our concern for myocardial infarction she agreed to proceed directly to the cardiac catheterization suite for diagnostic coronary angiography plus or minus PCI as indicated. 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 Coronary angiography revealed 100% occluded LAD. The remainder of her arteries had no more than mild disease. Unfortunately, I was ultimately unsuccessful in crossing the LAD lesion which was 100% and acting like an old or subacute occlusion. In the process of doing that I also disturbed the ostial to proximal diagonal lesions and there was thrombus present which required that I stent the diagonal. Fortunately this was done successfully. Her chest pain got better but did not completely resolve after fixing the diagonal. Eventually we abandon further attempts at crossing the LAD lesion as patient had increasing radiation dose and it was evident that this was a futile exercise. She has subsequently been admitted to the ICU for further workup and management. She did have an echocardiogram which I have read. Details are in the chart. Patient is a poor historian. She was able to confirm that she had had chest pain for several days but was less clear on whether it ever resolved during that time. She has had no syncope, near syncope, orthopnea, PND, racing heartbeat, palpitations, or edema. She states that her relatively recent rib injury after fall was different pain than what she was experiencing for the past several days. She continues to smoke. Reportedly she has had prior drug abuse issues (I will need to look into that further). She tells me her sister had 3 heart attacks. She states she never had any heart problems. Allergies Allergy/AdvReac Type Severity Reaction Status Date / Time clavulanic acid Allergy Intermediate Rash Verified 11/20/22 13:02 clindamycin Allergy Intermediate Rash and Verified 11/20/22 13:02 blisters doxycycline Allergy Intermediate Nausea/Vomi Verified 11/20/22 13:02 ting mold Allergy Unknown Unknown Verified 11/20/22 13:02 rabeprazole Allergy Unknown Rash Verified 11/20/22 13:02 Home Medications Medication Instructions Recorded Confirmed Type albuterol sulfate 90 mcg/actuation 2 puff inhalation DIRECTED PRN 10/26/18 11/18/24 History aerosol inhaler (Ventolin HFA) Shortness Of Breath Or Wheezing levothyroxine 75 mcg tablet 75 mcg PO QAM 10/26/18 11/18/24 History dexlansoprazole 60 mg 60 mg PO QAM 09/21/19 11/18/24 History capsule,biphase delayed release (Dexilant) fluticasone propionate 115 2 puff inhalation Q12H 11/18/24 11/18/24 History mcg-salmeterol 21 mcg/actuation HFA inhaler (Advair HFA) pregabalin 225 mg capsule (Lyrica) 225 mg PO BID 11/18/24 11/18/24 History quetiapine 25 mg tablet 25 mg PO Q8H PRN Anxiety 11/18/24 11/18/24 History sucralfate 100 mg/mL oral 10 ml PO ACHS 11/18/24 11/18/24 History suspension venlafaxine 75 mg capsule,extended 76 mg PO DAILY 11/18/24 11/18/24 History release 24 hr Patient History Medical History Positive urine drug screen Diverticulitis C. difficile colitis Depression IBS (irritable bowel syndrome) Gastroparesis Vertigo Surgical History Hx of tubal ligation History of partial colectomy History of cholecystectomy Social History Smoking Status: Current every day smoker Tobacco Type: Cigarettes Cigarettes Per Day: 20; Hx Alcohol Use: No Hx Substance Use: Yes Last Used Substance: Unknown Preferred Language: [place] Communication Ability: Effective [place] Administrator Required: No Beliefs That Will Affect Care: None Current Living Situation: Spouse Feels Safe at Home: Yes Gender Identity: Female Assistive Devices: Glasses Review of Systems Review of Systems: Negative except as per HPI Physical Exam Constitutional: WD/WN, vitals as above (Thin, older appearing than stated age) Eyes: Extraocular muscles intact ENMT: [place]romucosa is pink. She does not have many teeth that are visible. Neck: JVD to the angle of the jaw Respiratory: No wheezing or rhonchi. Diffuse crackles. Poor air movement. Cardiovascular: Regular rate and rhythm. Grade 1-2/6 systolic murmur. S4 gallop. No edema. Musculoskeletal: no cyanosis or clubbing, extremities motor strength 5/5 Neurologic: Diminished hearing. Cognition is intact. Speech is difficult to understand because of dentition but is appropriate Psychiatric: A+Ox3, euthymic affect Results & Data Vital Signs (Past 12 Hours) Vital Signs Temp Pulse Pulse Resp BP BP Pulse Ox 11/18/24 15:00 85 18 117/83 93 11/18/24 14:45 88 18 121/83 93 11/18/24 14:30 89 18 113/85 95 11/18/24 14:15 92 H 18 118/73 95 11/18/24 14:00 83 18 115/86 95 11/18/24 13:45 82 18 113/88 95 11/18/24 13:35 87 18 127/88 95 11/18/24 11:55 98 H 18 105/80 96 11/18/24 11:39 96 11/18/24 11:39 96 11/18/24 11:33 96 11/18/24 11:33 90 11/18/24 11:30 96 11/18/24 11:30 36.8 C 96 H 20 105/73 96 O2 Del Method 11/18/24 15:00 Room Air 11/18/24 14:45 Room Air 11/18/24 14:30 Room Air 11/18/24 14:15 Room Air 11/18/24 14:00 Room Air 11/18/24 13:45 Room Air 11/18/24 13:35 Room Air 11/18/24 11:55 Room Air 11/18/24 11:39 Room Air 11/18/24 11:39 Room Air 11/18/24 11:33 Room Air 11/18/24 11:33 11/18/24 11:30 Room Air 11/18/24 11:30 Room Air PG Care Time/CCT Total # of Minutes Spent Total Time Spent with Patient: Total time spent is greater than 50% in coordination of care (as documented) at patient's floor/unit and/or counseling patient: 60 minutes critical care time was spent in the examination, evaluation, review of records, discussion with the care team, discussing with the patient, formulation and implementation of a plan of care and all associated documentation. This time is exclusive of the time spent for the procedure. Coding Level of Care Code 46969 CRITICAL CARE 1ST 30-74M Diagnoses ST elevation (STEMI) myocardial infarction I21.3 Dyslipidemia E78.5 Ischemic cardiomyopathy I25.5 Time Spent (min) 60
[2024-11-18] MEDS: ICU Protocol for HYPERglycemia SCH (16:16)
[2024-11-18] MEDS: MoRPHine SULFATE 10 MG/ML CARP/VIAL IV PRN (16:17)
--- NOTE | 2024-11-18 16:25 | Ultrasound Report ---
INDICATION: Abdominal pain. COMPARISON: CT abdomen pelvis from 09/27/2022. TECHNIQUE: Transverse and longitudinal jacob scale and color Doppler images of the right upper quadrant were obtained. FINDINGS: Liver: Measures up to 16 cm in length. Negative for hepatic mass. Mild biliary ductal prominence. Gallbladder: Surgically absent. The common bile duct is dilated up to 1.6 cm. Pancreas: Mild pancreatic ductal prominence. No pancreatic mass identified. Right kidney: Negative for solid renal mass, hydronephrosis, cyst or shadowing calculus. IMPRESSION: Biliary ductal/pancreatic ductal prominence likely related to patient's postcholecystectomy state. Follow-up with MRCP as clinically relevant. Electronically signed by Jayy Ambriz 11-18-2024 4:25 PM
[2024-11-18 17:00] LABS: Troponin I High Sensitivity 39435.9 pg/ml (0-14)
[2024-11-18] MEDS: FLUTICASONE/VILANTEROL 200/25MCG 14 PUFFS/INHALER INH SCH (20:48)
[2024-11-18] MEDS: PREGABALIN 75 MG CAP PO SCH (20:48)
[2024-11-18] MEDS: METOPROLOL TARTRATE 25 MG TAB PO SCH (20:49)
--- OUTSIDE RECORDS SUMMARY | 2024-11-18 23:10 | External Medical Summary | Summary of Care ---
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 Metabolite 150 ng/mL Fentanyl 1 ng/mL Hydrocodone / Hydromorphone 300 ng/mL Methadone Metabolite 100 ng/mL Morphine / Codeine 300 ng/mL Oxycodone / Oxymorphone 100 ng/mL Screening results are presumptive and can only be used for medical purposes. Confirmatory testing is available upon request. *Note: Due to a large number of results and/or encounters for the requested time period, some results have not been displayed. A complete set of results can be found in Results Review. Patient Phone Numbers Labs: Lab Results Component Value Date/Time CREAT 0.7 10/27/2024 10:29 AM CREAT 0.8 04/20/2020 12:21 PM POTASSIUM 4.6 10/27/2024 10:29 AM POTASSIUM 3.9 04/20/2020 12:21 PM TSH 0.44 07/23/2024 01:42 PM TSH 1.85 03/24/2020 12:18 PM LDL 89 10/27/2024 10:29 AM LDL 206 (H) 03/24/2020 12:18 PM LDL UNINTERPRETABLE RESULT 02/19/2019 10:16 AM LDLCALC 77 11/21/2022 12:00 AM ALT 15 02/04/2023 12:29 PM ALT 96 (H) 05/19/2020 08:32 AM HGBA1C 5.5 02/04/2023 12:29 PM HGBA1C 5.4 12/20/2019 01:23 PM documented in this encounter Plan of Treatment Upcoming Encounters Date Type Department Care Team (Late st Contact Info) Description 11/18/2024 2:00 PM EST Hem/Onc Treatment Hematology/Oncology Treatment, [place] [address] [place] [address] [place], Chair 6 Hem Onc [place] [address] [place] [address] Health Maintenance Due Date Last Done Comments DISCUSS TOBACCO CESSATION (REFER TO SMARTSET #0701) 1965 O2 ASSESSMENT COMPLETED IN PAST YEAR FOR COPD 1981 Cologuard 2008 Sigmoidoscopy 2008 Fecal Occult Blood Test 12/05/2019 12/04/2018 Mammogram 07/04/2021 07/04/2020, 01/15, 08/27/2016, Additional history exists COVID-19 Vaccine (2 - Pfizer risk series) 04/10/2022 03/20/2022 Depression Monitoring 02/05/2024 02/04/2023 Albumin/Creatinine Ratio 01/03/2025 01/03/2022 TSH 07/23/2025 07/23/2024, 05/17, 02/04/2023, Additional history exists GFR 10/27/2025 10/27/2024, 05/16, 02/04/2023, Additional history exists Pap Smear 02/04/2026 02/04/2023, 10/17, 05/08/2012, Additional history exists Cervical Cancer Screening 02/05/2028 HPV/Co-Test 02/05/2028 02/04/2023 Colonoscopy 06/22/2029 06/22/2019, 04/2019, 01/13/2019, Additional history exists Colorectal Cancer Screening 06/22/2029 Lipid Panel 10/27/2029 10/27/2024, 05/16, 11/21/2022, Additional history exists DTap/Tdap Vaccines (3 - Td or Tdap) 12/31/2032 12/31/2022, 05/01/2012, 11/10/2006 Lung Cancer Screening Completed 03/24/2020 , 05/05/2018, 03/15/2016 Zoster Vaccines Completed 03/24/2020, 11/04/2019 Alpha-1 Antitrypsin Completed 05/19/2020 Pneumococcal Vaccine: 50+ Years Completed 02/04/2023, 01/17/2009 Influenza Vaccine (FLU shot) Completed 04/2024, 06/21/2024, 06/24/2023, Additional history exists HPV (Gardasil) Vaccine Aged Out No lo nger eligible based on patient's age to complete this topic Hepatitis B Vaccine Aged Out No longe r eligible based on patient's age to complete this topic MENINGOCOCCAL (MENACTRA/MENVEO) Aged Out No longer eligible based on patient's age to complete this topic Meningitis B Vaccine (Bexsero/Trumemba) Aged Out No longer eligible based on patient's age to complete this topic documented as of this encounter Medical Devices Not on filedocumented as of this encounter Visit Diagnoses Diagnosis Gastroesophageal reflux disease with esophagitis without hemorrhage documented in this encounter Advance Directives * Full Code (Latest Code Status on File) Date Activated Date Inactivated Comments 06/03/2023 11:32 AM 06/16/2023 7:09 PM This order reflects the patients wishes and were consensually agreed upon. Question Answer Comments Discussion of Advance Directives occurred with: Patient Does the patient have a Living Will? No Does the patient have Health Care Power of Attor syeda? No * Full Code Date Activated Date Inactivated Comments 09/01/2019 12:05 PM 09/03/2019 5:41 PM This orde r reflects the patients wishes and were consensually agreed upon. * Full Code Date Activated Date Inactivated Comments 09/01/2019 7:07 AM 09/01/2019 12:05 PM Question Answer Comments Discussion of Advance Directives occurred with: Not Discussed Care Teams Packaging Sales Relationship Specialty Start Date End Date Val Persaud DO [address] [place] [address] PCP - General Family Medicine 02/08/16 documented as of this encounter
--- OUTSIDE RECORDS SUMMARY | 2024-11-18 23:10 | External Medical Summary | Summary of Care ---
Author Name Unknown Organization [facility] Address [address] [place] [address] Phone [phone] Care Team Providers Care Cigarette Machines Mechanic Name Role Phone Val Persaud DO Primary Care Provider Reason for Visit * Reason Onset Date Comments Medication Refill 11/15/2024 Encounter Details Date Type Department Care Team (Late st Contact Info) Description 11/15/2024 Refill Family Practice [facility] [address] [facility] [place] [address] Val Persaud DO [address] [facility] [place] [address] Allergies Active Allergy Reactions Criticality Noted Date [...] (3) MG/3ML Inhalation Solution (Duoneb)Indicatio ns:COPD, moderate ([facility]) Inhale 3 mL via nebulizer in the morning and 3 mL at noon and 3 mL in the evening and 3 mL before bedtime. 180 mL 1 06/13/20 24 Active Fluticasone-Salme terol 115-21 MCG/ACT Inhalation Aerosol (Advair HFA)Indications:C OPD, group B, by GOLD 2017 classification ([facility]),Intermitten t asthma with reliever use up to [...] morning. 100 Tablet 3 11/18/19 25 Active Loratadine 10 MG Oral [...] 1 10/25/19 25 025 Discontin ued(Refil l) Vitamin B-12 1000 MCG Oral Tablet (Cyanocobalamin)I ndications:Vitami n Deficiency Prophylaxis Take 1 Tablet by mouth in the morning. 100 Tablet 3 11/08/19 25 025 Discontin ued(Refil l) documented as of this encounter (statuses as of 11/17/2024) Active Problems Problem Noted Date Diagnosed Date Food insecurity 06/23/2023 Overview: Per [facility] Protocol Severe episode of recurrent major depressive disorder, without psychotic features 06/01/2023 PTSD (post-traumatic stress disorder) 06/01/2023 Cannabis abuse 06/01/2023 Iron deficiency anemia 03/25/2023 Substance abuse 12/31/2022 Overview (01/15/2023): UDS + meth 11/23/22 [facility], new onset of paranoia and confusion UDS [...] very minimal noted on overnight PSG 2 [facility] Gastroesophageal reflux disease with esophagitis 03/14/2011 HTN, [...] IM 11/09/2009 Pneumococcal Conjugate Vacci ne, 20-valent ([id number]) 02/04/2023 Pneumococcal Polysaccharide PPV23 (Pneumovax) 01/17/2009 Seasonal [...] Never 06/02/2023 How often do you attend rastafari or orthodox serv ices? Never 06/02/2023 Do you belong to any clubs o r organizations such as rastafari groups, unions, fraternal or athletic groups, or [...] Recorded PHQ Adult Total Score 0 02/04/2023 [facility] - Occupational Stress Questionnaire Answer Date Recorded [...] place to sleep or slept in a assisted (including now)? Yes 06/02/2023 Childcare Answer Date [...] No 12/22/2023 Does the household have a re lar source of income? (Household - for ages [...] Yes 06/03/2023 2:49 PM EDT Elda Peck, Farmworker [employer] * Do you have difficulty dressing or [...] encounter Miscellaneous Notes * Telephone Encounter - Leonardo Vera RPh - 11/17/2024 10:47 AM ESTSigned Prescriptions: Disp Refills Vitamin B-12 1000 MCG Oral Tablet (Cyanoco*100 Ta*3 Sig: Take 1 Tablet by mouth in the morning.Authorizing Provider: VAL PERSAUD User: LEONARDO MASON Electronically signed by Leonardo [facility], located within [facility] at 11/17/2024 10:47 AM EST * Telephone Encounter - Leonardo Vera RPh - 11/17/2024 10:46 AM EST Rx resent to [facility]. documented in this encounter Plan of Treatment Upcoming Encounters Date Type Department Care Team (Late st Contact Info) Description 11/18/2024 1:00 PM EST Office Visit Hematology/Oncology [facility] [place] [address] [place] [phone] Michaela Javier CRNP [address] [place] [address] 11/18/2024 2:00 PM EST Hem/Onc Treatment Hematology/Oncology Treatment, [place] [address] [place] [address] Vikki, Chair 6 Hem [facility]c [facility] [address] [facility] [place] [address] Health Maintenance Due Date Last Done Comments DISCUSS TOBACCO CESSATION (REFER TO SMARTSET #3476) 1965 O2 ASSESSMENT COMPLETED IN PAST YEAR [...] 02/05/2028 HPV/Co-Test 02/05/2028 02/04/2023 Colonoscopy 06/22/2029 06/22/2019, 10/0 04/2019, 01/13/2019, Additional history exists Colorectal Cancer [...] Not on filedocumented as of this encounter Advance Directives * Full Code [...] Directives occurred with: Not Discussed Care Teams Cigarette Machines Mechanic Relationship Specialty Start Date End Date Val Persaud DO [address] [id number] PCP - General Family Medicine 02/08/16 documented as of this encounter
--- OUTSIDE RECORDS SUMMARY | 2024-11-18 23:11 | External Medical Summary | Summary of Care ---
Author Name Unknown Organization [facility] Address [address] [facility] [place] [address] Phone [phone] Care Team Providers Care Voice Professor Name Role Phone Ninfa Cruz DO Primary Care Provider Reason for Visit * Reason Onset Date Comments Medication Refill 11/12/2024 Encounter Details Date Type Department Care Team (Late st Contact Info) Description 11/12/[address] [facility] [address] [facility] [place] [address] Ninfa Cruz DO [address] [facility] [place] [address] Gastroesophageal reflux disease with esophagitis without hemorrhage [...] as of this encounter (statuses as of 11/15/2024) Medications Simethicone 80 MG Oral Tablet Chewable (Gas Relief)Indications :Gas Pain Take 1 Tablet by mouth every 6 hours as needed for Gas. 30 Tablet 5 04/28/20 24 Active Ipratropium-Albute rol 0.5-2.5 (3) MG/3ML Inhalation Solution (Duoneb)Indication s:COPD, moderate ([facility]) Inhale 3 mL via nebulizer in the morning and 3 mL at noon and 3 mL in the evening and 3 mL before bedtime. 180 mL 1 06/13/20 24 Active Fluticasone-Salmet mike 115-21 MCG/ACT Inhalation Aerosol (Advair HFA)Indications:CO PD, group B, by GOLD 2017 classification ([facility]),Intermittent asthma with reliever use up to twice per week without complication Inhale 2 Puffs by mouth in the morning and 2 Puffs before bedtime. 12 g 12 06/18/20 24 Active Estradiol 0.1 MG/GM Vaginal Cream (Estrace)Indicatio ns:Menopause USE 1/4 OF APPLICATORFUL 2 TO 3 TIMES PER WEEK. 127.5 g 3 07/21/20 24 Active Albuterol Sulfate HFA 108 (90 Base) MCG/ACT Inhalation Aerosol Solution Inhale 2 Puffs by mouth every 6 hours as needed for Dyspnea. 54 g 07/22/20 24 Active Bismuth Subsalicylate 262 MG/15ML Oral Suspension ([employer] Stomach Relief)Indications :Gastroesophageal reflux disease with esophagitis without hemorrhage Take 30 mL by mouth every 6 hours as needed for Nausea or Other (stomach upset). 473 mL 1 08/09/20 24 Active Ibuprofen 600 MG Oral Tablet (Motrin)Indication s:Chronic Pain Take 1 Tablet by mouth every 6 hours as needed for Fever (> 100.5F). 30 Tablet 1 5 1:49 PM EST 09/03/20 24 Active Ondansetron 4 MG Oral Tablet Disintegrating (Zofran)Indication s:Nausea Place 1 Tablet on tongue every 6 hours as needed for Nausea. 90 Tablet 4 5 1:49 PM EST 12/23/20 24 Active Venlafaxine HCl ER 75 MG Oral Capsule Extended Release 24 Hour (Effexor XR)Indications:Mod erate episode of recurrent major depressive disorder (HCC) Take 1 Capsule by mouth in the morning. Do not cut, crush or chew. 90 Capsule 5 11:26 AM EST 09/24/19 25 Active Prochlorperazine Maleate 10 MG Oral Tablet (Compazine) TAKE ONE TABLET BY MOUTH EVERY 6 HOURS NEEDED FOR NAUSEA 120 Tablet 2 10/04/19 25 Active Fluticasone Propionate 50 MCG/ACT Nasal Suspension (Flonase)Indicatio ns:Asthma Administer 2 Sprays into nostril 2 times a day as needed for Congestion. 16 g 1 10/04/19 25 Active Lidocaine 5 % External Patch (Lidoderm)Indicati ons:Personal history of fall,Closed fracture of one rib of left side, initial encounter Place 1 Patch over 12 hours topically on the skin daily. 30 Patch 10/05/19 25 Active Pregabalin 225 MG Oral Capsule (Lyrica)Indication s:Chronic pain syndrome Take 1 Capsule by mouth in the morning and 1 Capsule before bedtime. Brand necessary. 180 Capsule 1 10/06/19 25 Active Dicyclomine HCl 10 MG Oral Capsule (Bentyl)Indication s:Abdominal Distress Take 2 Capsules by mouth 4 times a day as needed for Other (abdominal pain). 120 Capsule 10/11/19 25 Active Sucralfate 1 GM/10ML Oral Suspension (Carafate)Indicati ons:Gastroesophage al reflux disease with esophagitis without hemorrhage Take 10 mL by mouth in the morning and 10 mL at noon and 10 mL in the evening and 10 mL before bedtime. 420 mL 1 10/11/19 25 Active Loratadine 10 MG Oral Tablet (Claritin)Indicati ons:Allergic Rhinitis Take 1 Tablet by mouth in the morning. 30 Tablet 2 10/10/19 25 Active Methocarbamol 500 MG Oral Tablet (Robamol) Take 1 Tablet by mouth 3 times a day as needed for Muscle spasms. 30 Tablet 10/18/19 25 Active Levothyroxine Sodium 75 MCG Oral Tablet (Levoxyl)Indicatio ns:Hypothyroidism Take 1 Tablet by mouth daily first thing in the morning. 90 Tablet 3 11/02/19 25 Active Bismuth Subsalicylate 262 MG/15ML Oral Suspension ([employer] Stomach Relief)Indications :Gastroesophageal reflux disease with esophagitis without hemorrhage TAKE 30 ML BY MOUTH EVERY 6 HOURS NEEDED FOR NAUSEA OR OTHER (STOMACH UPSET). 473 mL 1 10/25/19 25 Active Dexlansoprazole 60 MG Oral Capsule Delayed Release (Dexilant)Indicati ons:Gastroesophage al reflux disease with esophagitis without hemorrhage Take 1 Capsule by mouth in the morning. 90 Capsule 1 10/28/19 25 Active Bismuth Subsalicylate 262 MG/15ML Oral Suspension (Pepto-Bismol) Take 30 mL by mouth every 4 hours as needed for Gas. 30 mL 5 11/05/19 25 Active Vitamin B-12 1000 MCG Oral Tablet (Cyanocobalamin)In dications:Vitamin Deficiency Prophylaxis Take 1 Tablet by mouth in the morning. 100 Tablet 3 11/08/19 25 Active QUEtiapine Fumarate 25 MG Oral Tablet (SEROquel)Indicati ons:Anxiety Take 1 Tablet by mouth every 8 hours as needed for Anxiety. 30 Tablet 5 11:15 AM EST 11/12/19 25 Active documented as of this encounter (statuses as of 11/15/2024) Active Problems Problem Noted Date Diagnosed Date Food insecurity 06/23/2023 Overview: Per [facility] Protocol Severe episode of recurrent major depressive disorder, without psychotic features 06/01/2023 PTSD (post-traumatic stress disorder) 06/01/2023 Cannabis abuse 06/01/2023 Iron deficiency anemia 03/25/2023 Substance abuse 12/31/2022 Overview (01/15/2023): UDS + meth 11/23/22 [facility], new onset of paranoia and confusion [...] very minimal noted on overnight PSG 2 [facility] Gastroesophageal reflux disease with esophagitis 03/14/2011 HTN, goal below 130/80 03/13/2011 Fibromyalgia 04/05/2010 Chronic nausea 04/02/2010 Overview (07/08/2017): ICD-10 update of inactive term Intermittent asthma with rel iever use up to twice per week without complication 01/04/2010 ANDRE (generalized anxiety disorder) 10/24/2009 Dyslipidemia 08/24/2009 Overview (08/24/2009): Per Lipid Taxonomy. Hypothyroidism 05/12/2009 documented as of this encounter (statuses as of 11/15/2024) Resolved Problems Problem Noted Date Diagnosed Date [...] as of this encounter (statuses as of 11/15/2024) Immunizations Name Administration Dates Next Due COVID-19, LNP-s, No Preserve , Lloyd-sucrose, Ages 12+ (Pfizer) 03/20/2022 H1N1 2008 Influenza, IM 11/09/2009 Pneumococcal Conjugate Vacci ne, 20-valent ([id number]) 02/04/2023 Pneumococcal Polysaccharide PPV23 (Pneumovax) 01/17/2009 Seasonal [...] Never 06/02/2023 How often do you attend congregation or tenriism serv ices? Never 06/02/2023 Do you belong to any clubs o r organizations such as congregation groups, unions, fraternal or athletic groups, or [...] Recorded PHQ Adult Total Score 0 02/04/2023 [facility] - Occupational Stress [...] place to sleep or slept in a residential (including now)? Yes 06/02/2023 Childcare Answer Date [...] 12/22/2023 Does the household have a re gular source of income? (Household - for ages [...] of Assessment Author No 09/01/2019 1:35 PM EST Columba Houston RN * Are you blind or do you have serious difficulty seeing, even when wearing glasses? Answer Date of Assessment Author No 09/01/2019 1:35 PM Columba March RN * Does this person have serious difficulty walking or climbing stairs? Answer Date of Assessment Author Yes 06/03/2023 2:49 PM EDT Elda Peck, Mainframe Systems Programmer * Do you have difficulty dressing or [...] Columba March RN documented in this encounter Plan of Treatment Upcoming Encounters Date Type Department Care Team (Late st Contact Info) Description 11/17/2024 12:00 PM EST Laboratory Laboratory [facility] [address] [facility] [place] [phone] Vikki Lab [address] [facility] [place] [address] 11/18/2024 1:00 PM EST Office Visit Hematology/Oncology [facility] [address] [place] [phone] Michaela Javier, CANDELARIO [address] [place] [address] 11/18/2024 2:00 PM EST [facility] [address] [facility] [phone] Vikki, Chair 6 Hem Onc [address] [place] [address] Health Maintenance Due Date Last Done Comments DISCUSS TOBACCO CESSATION (REFER TO SMARTSET #2634) 1965 O2 ASSESSMENT COMPLETED IN PAST YEAR [...] Directives occurred with: Not Discussed Care Teams Voice Professor Relationship Specialty Start Date End Date Ninfa Cruz DO [address] [place] [address] PCP - General Family Medicine 02/08/16 documented as of this encounter
--- OUTSIDE RECORDS SUMMARY | 2024-11-18 23:11 | External Medical Summary | Summary of Care ---
Author Name Unknown Organization [facility] Address [address] [place] [place] [address] Phone [phone] Care Team Providers Care Molding Press Operator Name Role Phone Ninfa Cruz DO Primary Care Provider Reason for Visit * Reason Comments Medication Refill Encounter Details Date Type Department Care Team (Late st Contact Info) Description 11/15/2024 Refill Family Practice [facility] [address] [facility] [place] [address] Ninfa Cruz DO [address] [place] [address] Allergies Active Allergy Reactions Criticality Noted Date [...] as of this encounter (statuses as of 11/16/2024) Medications Simethicone 80 MG Oral Tablet Chewable (Gas Relief)Indications :Gas Pain Take 1 Tablet by mouth every 6 hours as needed for Gas. 30 Tablet 5 04/28/20 24 Active Ipratropium-Albute rol 0.5-2.5 (3) MG/3ML Inhalation Solution (Duoneb)Indication s:COPD, moderate ([facility]) Inhale 3 mL via nebulizer in the morning and 3 mL at noon and 3 mL in the evening and 3 mL before bedtime. 180 mL 1 06/13/20 24 Active Fluticasone-Salmet mike 115-21 MCG/ACT Inhalation Aerosol (Advair HFA)Indications:CO PD, group B, by GOLD 2017 classification ([facility]),Intermittent asthma with reliever use up to twice [...] as of this encounter (statuses as of 11/16/2024) Active Problems Problem Noted Date Diagnosed Date Food insecurity 06/23/2023 Overview: Per [facility] Protocol Severe episode of recurrent major depressive disorder, without psychotic features 06/01/2023 PTSD (post-traumatic stress disorder) 06/01/2023 Cannabis abuse 06/01/2023 Iron deficiency anemia 03/25/2023 Substance abuse 12/31/2022 Overview (01/15/2023): UDS + meth 11/23/22 [facility], new onset of paranoia and confusion [...] very minimal noted on overnight PSG 2 [facility] Gastroesophageal reflux disease with esophagitis 03/14/2011 HTN, goal below 130/80 03/13/2011 Fibromyalgia 04/05/2010 Chronic nausea 04/02/2010 Overview (07/08/2017): ICD-10 update of inactive term Intermittent asthma with rel iever use up to twice per week without complication 01/04/2010 ANDRE (generalized anxiety disorder) 10/24/2009 Dyslipidemia 08/24/2009 Overview (08/24/2009): Per Lipid Taxonomy. Hypothyroidism 05/12/2009 documented as of this encounter (statuses as of 11/16/2024) Resolved Problems Problem Noted Date Diagnosed Date [...] as of this encounter (statuses as of 11/16/2024) Immunizations Name Administration Dates Next Due COVID-19, LNP-s, No Preserve , Lloyd-sucrose, Ages 12+ (Pfizer) 03/20/2022 H1N1 2009 Influenza, IM 11/09/2009 Pneumococcal Conjugate Vacci ne, 20-valent ([id number]) 02/04/2023 Pneumococcal Polysaccharide PPV23 (Pneumovax) 01/17/2009 Seasonal [...] Never 06/02/2023 How often do you attend muslim or bahai serv ices? Never 06/02/2023 Do you belong to any clubs o r organizations such as muslim groups, unions, fraternal or athletic groups, or [...] Recorded PHQ Adult Total Score 0 02/04/2023 [facility] Occup[facility] ional Health - Occupational Stress [...] place to sleep or slept in a nursing home (including now)? Yes 06/02/2023 Childcare Answer Date [...] Yes 06/03/2023 2:49 PM EDT Elda Peck, Interface Control Officer * Do you have difficulty dressing or [...] encounter Miscellaneous Notes * Telephone Encounter - Hailee Almanza LPN - 11/16/2024 8:49 AM ESTRefused Prescriptions: Disp Refills QUEtiapine Fumarate 25 MG Oral Tablet (SER*30 Tab*0 Sig: Take 1 Tablet by mouth every 8 hours as needed for Anxiety. Refused By: HAILEE ALMANZA Reason for Refusal: Too soon * Telephone Encounter - Hailee Almanza LPN - 11/16/2024 8:48 AM EST Script sent to the same pharm 11/12/24 for 10 day fill and 0 refills * Telephone Encounter - Anjana Hardin - 11/16/2024 8:27 AM ESTPending Prescriptions: Disp Refills QUEtiapine Fumarate 25 MG Oral Tablet (SER*30 Tab*0 Sig: Take 1Tablet by mouth every 8 hours as needed for Anxiety. documented in this encounter Plan of Treatment Upcoming Encounters Date Type Department Care Team (Late st Contact Info) Description 11/17/2024 12:00 PM EST Laboratory Laboratory [address] [place] [phone] Vikki Lab [address] [place] [address] 11/18/2024 1:00 PM EST Office Visit Hematology/Oncology [facility] 200 [facility] [place], [place] [phone] Michaela Javier CRNP [address] [place] [address] 11/18/2024 2:00 PM EST Hem/Onc Treatment Hematology/Oncology Treatment, [place] 200 [place] [address] Vikki, Chair 6 Hem Onc [address] [place], [place] [address] Health Maintenance Due Date Last Done Comments DISCUSS TOBACCO CESSATION (REFER TO SMARTSET #1063) 1965 O2 ASSESSMENT COMPLETED IN PAST YEAR [...] Directives occurred with: Not Discussed Care Teams Molding Press Operator Relationship Specialty Start Date End Date Ninfa Cruz DO [address] [place] [address] PCP - General Family Medicine 02/08/16 documented as of this encounter
--- OUTSIDE RECORDS SUMMARY | 2024-11-18 23:11 | External Medical Summary | Summary of Care ---
Author Name Unknown Organization [facility] [address] [facility] [address] Phone [phone] Care Team Providers Care Saas Architect Name Role Phone Ninfa Cruz DO Primary Care Provider [phone] Reason for Visit * Reason Onset Date Comments Referral 11/04/2024 Encounter Details Date Type Department Care Team (Late st Contact Info) Description 11/04/2024 New Patient Triage (MANAGER HI USE ONLY) Hematology/Oncology [facility] [address] [place] [id number] Pat Wen CRNP [address] [place] [address] Referral Allergies Active Allergy Reactions Criticality Noted Date [...] as of this encounter (statuses as of 11/09/2024) Medications Simethicone 80 MG Oral Tablet Chewable (Gas Relief)Indication s:Gas Pain Take 1 Tablet by mouth every 6 hours as needed for Gas. 30 Tablet 5 04/28/20 24 Active Ipratropium-Albut mike 0.5-2.5 (3) MG/3ML Inhalation Solution (Duoneb)Indicatio ns:COPD, moderate ([facility]) Inhale 3 mL via nebulizer in the morning and 3 mL at noon and 3 mL in the evening and 3 mL before bedtime. 180 mL 1 06/13/20 24 Active Fluticasone-Salme terol 115-21 MCG/ACT Inhalation Aerosol (Advair HFA)Indications:C OPD, group B, by GOLD 2017 classification ([facility]),Intermitten t asthma with reliever use up [...] morning. 90 Capsule 1 10/28/19 25 Active QUEtiapine Fumarate 25 MG Oral Tablet (SEROquel)Indicat ions:Anxiety Take 1 Tablet by mouth every 8 hours as needed for Anxiety. 30 Tablet 11/01/19 25 Active Fexofenadine HCl 180 MG Oral Tablet (GNP Allergy Relief) Take 1 Tablet by mouth daily as needed for Allergies. 30 Tablet 11 4 11:59 AM EDT 07/07/20 23 025 Discontin ued(Patie nt preferenc e/discont inuation) Nicotine 21 MG/24HR Transdermal Patch 24 Hour (Nicoderm CQ)Indications:CO PD, moderate (HCC),Tobacco use disorder Place 1 Patch over 24 hours topically on the skin daily. 28 Patch 1 3 11:13 AM EST 07/31/20 23 025 Discontin ued(Medic ation List Clean Up) Nicotine Polacrilex 2 MG Mouth/Throat Gum (Nicorette) Chew one piece of gum every 1 to 2 hours for the first 6 weeks, then 1 every 2 to 4 hours for weeks 7 to 9, then 1 every 4 to 8 hours. 120 Each 1 4 5:24 PM EST 09/23/19 24 025 Discontin ued(Medic ation List Clean Up) Nicotine Polacrilex 4 MG Mouth/Throat Gum (GNP Nicotine Polacrilex)Indica tions:Tobacco use Chew one piece of gum every 1 to 2 hours for the first 6 weeks, then 1 every 2 to 4 hours for weeks 7 to 9, then 1 every 4 to 8 hours. 110 Each 4 10:41 AM EDT 02/10/20 24 025 Discontin ued(Patie nt preferenc e/discont inuation) Benzonatate 100 MG Oral Capsule (Tesluisa Camargo)Indication s:Suspected COVID-19 virus infection,Dry cough Take 1 Capsule by mouth 3 times a day as needed for Cough. Do not cut, crush, or chew. 30 Capsule 4 1:12 PM EDT 03/01/20 24 025 Discontin ued(Patie nt preferenc e/discont inuation) Ferrous Sulfate 325 (65 Fe) MG Oral Tablet (FeroSul)Indicati ons:Anemia Take 1 Tablet by mouth in the morning and 1 Tablet at noon and 1 Tablet in the evening. Take with meals. 90 Tablet 2 05/03/20 24 025 Discontin ued(Patie nt preferenc e/discont inuation) Phenazopyridine HCl 200 MG Oral Tablet (Pyridium)Indicat ions:Dysuria Take 1 Tablet by mouth 3 times a day as needed for Pain, Mild. After meals for pain with urination 20 Tablet 3 05/18/20 24 025 Discontin ued(Patie nt preferenc e/discont inuation) Nicotine 14 MG/24HR Transdermal Patch 24 Hour (Nicoderm CQ)Indications:To bacco use disorder PLACE 1 PATCH OVER 24 HOURS TOPICALLY ON THE SKIN DAILY 28 Patch 06/09/20 24 025 Discontin ued(Patie nt preferenc e/discont inuation) Polyethylene Glycol 3350 17 GM/SCOOP Oral Powder (MiraLax)Indicati ons:Constipation, unspecified constipation type Take 17 g by mouth as needed for Constipation. Dissolve one heaping tablespoon in 8 ounces of water or juice. 850 g 1 06/24/20 24 025 Discontin ued(Medic ation List Clean Up) Vitamin D3 25 MCG (1000 UT) Oral Tablet (Vitamin D3) Take 1 Tablet by mouth in the morning. 90 Tablet 1 07/23/20 24 025 Discontin ued(Patie nt preferenc e/discont inuation) Bismuth Subsalicylate 262 MG/15ML Oral Suspension ([employer]S Stomach Relief)Indication s:Gastroesophagea l reflux disease with esophagitis without hemorrhage Take 30 mL by mouth every 6 hours as needed for Nausea. 473 mL 1 09/09/20 24 025 Discontin ued(Patie nt preferenc e/discont inuation) Vitamin B-12 1000 MCG Oral Tablet (Cyanocobalamin)I ndications:Vitami n Deficiency Prophylaxis Take 1 Tablet by mouth in the morning. 100 Tablet 3 09/27/19 25 025 Discontin ued(Refil l) documented as of this encounter (statuses as of 11/09/2024) Active Problems Problem Noted Date Diagnosed Date Food insecurity 06/23/2023 Overview: Per [facility] Protocol Severe episode of recurrent major depressive disorder, without psychotic features 06/01/2023 PTSD (post-traumatic stress disorder) 06/01/2023 Cannabis abuse 06/01/2023 Iron deficiency anemia 03/25/2023 Substance abuse 12/31/2022 Overview (01/15/2023): UDS + meth 11/23/22 [facility], new onset of paranoia and confusion [...] very minimal noted on overnight PSG 2 [facility] Gastroesophageal reflux disease with esophagitis 03/14/2011 HTN, goal below 130/80 03/13/2011 Fibromyalgia 04/05/2010 Chronic nausea 04/02/2010 Overview (07/08/2017): ICD-10 update of inactive term Intermittent asthma with rel iever use up to twice per week without complication 01/04/2010 ANDRE (generalized anxiety disorder) 10/24/2009 Dyslipidemia 08/24/2009 Overview (08/24/2009): Per Lipid Taxonomy. Hypothyroidism 05/12/2009 documented as of this encounter (statuses as of 11/09/2024) Resolved Problems Problem Noted Date Diagnosed Date [...] as of this encounter (statuses as of 11/09/2024) Immunizations Name Administration Dates Next Due COVID-19, LNP-s, No Preserve , Lloyd-sucrose, Ages 12+ (Pfizer) 03/20/2022 H1N1 2009 Influenza, IM 11/09/2009 Pneumococcal Conjugate Vacci ne, 20-valent ([id number]) 02/04/2023 Pneumococcal Polysaccharide PPV23 (Pneumovax) 01/17/2009 Seasonal [...] Never 06/02/2023 How often do you attend latter day or anabaptism serv ices? Never 06/02/2023 Do you belong to any clubs o r organizations such as latter day groups, unions, fraternal or athletic groups, or [...] Recorded PHQ Adult Total Score 0 02/04/2023 [facility] - Occupational Stress Questionnaire Answer Date Recorded [...] place to sleep or slept in a half-way (including now)? Yes 06/02/2023 Childcare Answer Date [...] Assessment Author Yes 06/03/2023 2:49 PM EDT lEda Peck, Mis Manager * Do you have difficulty dressing or [...] Entry Date Author No 09/01/2019 1:35 PM EST Columba Houston RN documented in this encounter Progress Notes * Aubrie Seymour LPN - 11/09/2024 10:28 AM EST My G sent. * Aubrie Seymour LPN - 11/05/2024 3:08 PM EST Discussed care plan with patient or proxy?: Yes, LM for patient to return call, return phone numberprovided. My G sent. Communicated with patient on Date (mm/dd/yyyy): 11/05/2024 at Time ([facility]): 03:09 PM Additional imaging needed: No Additional imaging orders pended: No Further labs recommended and ordered: Yes Bone Marrow biopsy recommended:No [facility] clinic review recommended: No * Aubrie Seymour LPN - 11/05/2024 8:45 AM EST Order received for Venofer [place] plan built and routed to provider No prior authorization needed * Pat Wen CRNP - 11/04/2024 1:35 PM EST Hematology New Referral Triage Note 59 y/o female referred for iron deficiency anemia. PMH of hypothyroidism, DLD, ANDRE, fibromyalgia, HTN, GERD, smoker, depression, Cdiff, fibroids, and COPD. Recently had lab work completed by PCP showing ferritin of 15 and TSAT of 14%. No CBC completed at that time. Patient reports intolerance of oral iron. Patient has previously received IV Venofer infusions in 2022 ordered by PCP. Last colonoscopy in 2018, last EGD in 2019. Patient is postmenopausal. Timeframe to be seen: 10 days Can the patient be seen by an advanced practitioner? yes Are additional labs or studies needed prior to initial visit? Yes - CBCd, vitamin b12 and folic acid Is an infusion appointment needed after initial visit? Yes - order placed for IV Venofer 300 mg weekly x 3 infusions Discussed care plan with patient or proxy?: No Nurse to call. Previously seen hematology? No. CANDELARIO Mccartney Hematology * Aubrie Seymour LPN - 11/04/2024 9:39 AM EST Images from the original note were not included. New Patient Triage What is the diagnosis/reason for referral?: AMY Enter order ID here: [id number] Specialty specific documentation: Hematology/Oncology NEW PATIENT - HEMATOLOGY/ONCOLOGY SPECIALTY TRIAGE Triage needed?: Yes Referring provider name: Dr. Ninfa Cruz Confirmation of diagnosis: Yes TRIAGE PLAN: Baseline/staging imaging complete: No Labs available: Yes Referral to other specialty recommended (ie. Surgery, outpatient infusion): No Additional triage comments: Please see TE, 11/03/2024, Dr. Cruz documented in this encounter Miscellaneous Notes * Addendum Note - Aubrie Seymour LPN - 11/05/2024 3:27 PM ESTAddended by: AUBRIE SEYMOUR on: 11/05/2024 03:27 PM Modules accepted: Orders * Addendum Note - Pat Wen CRNP - 11/04/2024 1:55 PM ESTAddended by: PAT WEN on: 11/04/2024 01:55 PM Modules accepted: Orders documented in this encounter Plan of Treatment Upcoming Encounters Date Type Department Care Team (Late st Contact Info) Description 11/17/2024 12:00 PM EST Laboratory Laboratory [facility] [address] [place] [phone] Erwin Florez Scene [address] [place] [address] 11/18/2024 1:00 PM EST Office Visit Hematology/Oncology [facility] [address] [facility] [place], [place] [phone] Michaela Javier, CANDELARIO [address] [facility] [place] [address] 11/18/2024 2:00 PM EST [facility] [address] [place], [place] [phone] Vikki, Chair 4 Hem Onc [facility] [address] [facility] [place], [place] [address] Scheduled Orders Name Type Priority Associated Diagnoses Orde r Schedule CBC WITH WBC DIFFERENTIAL Lab Routine Iron deficiency anemia, unspecified iron deficiency anemia type Expected: 11/05/2024 (Approximate), Expires: 12/14/2024 VITAMIN B12 Lab Routine Iron deficiency anemia, unspecified iron deficiency anemia type Expected: 11/05/2024 (Approximate), Expires: 12/14/2024 FOLIC ACID Lab Routine Iron deficiency anemia, unspecified iron deficiency anemia type Expected: 11/05/2024 (Approximate), Expires: 12/14/2024 Health Maintenance Due Date Last Done Comments DISCUSS TOBACCO CESSATION (REFER TO SMARTSET #6572) 1965 O2 ASSESSMENT COMPLETED IN PAST YEAR [...] as of this encounter Visit Diagnoses Diagnosis Iron deficiency anemia, unspecified iron deficiency anemia type- Primary Thrombocytopenia, congenital and hereditary (HCC) Congenital and hereditary thrombocytopenic purpura Erythrocytosis Polycythemia, secondary Anemia, unspecified type documented in this encounter Advance Directives * [...] Directives occurred with: Not Discussed Care Teams Saas Architect Relationship Specialty Start Date End Date Ninfa Cruz DO [address] [place] [address] PCP - General Family Medicine 02/08/16 documented as of this encounter
--- OUTSIDE RECORDS SUMMARY | 2024-11-18 23:11 | External Medical Summary | Summary of Care ---
Author Name Unknown Organization [facility] Address [address] [place] [address] Phone [phone] Care Team Providers Care Gospel Worker Name Role Phone Val Persaud DO Primary Care Provider [phone] Reason for Visit * Reason Onset Date Comments Medication Refill 11/15/2024 Encounter Details Date Type Department Care Team (Late st Contact Info) Description 11/15/2024 Refill [facility] [address] [facility] [place] [address] Val Persaud DO [address] [facility] [address] Seasonal allergies Allergies Active Allergy Reactions Criticality Noted Date [...] (3) MG/3ML Inhalation Solution (Duoneb)Indicatio ns:COPD, moderate ([facility]) Inhale 3 mL via nebulizer in the morning and 3 mL at noon and 3 mL in the evening and 3 mL before bedtime. 180 mL 1 06/13/20 24 Active Fluticasone-Salme terol 115-21 MCG/ACT Inhalation Aerosol (Advair HFA)Indications:C OPD, group B, by GOLD 2017 classification ([facility]),Intermitten t asthma with reliever use up to [...] (abdominal pain). 120 Capsule 11/17/19 25 Active Loratadine 10 MG Oral Tablet (Claritin)Indicat ions:Allergic Rhinitis Take 1 Tablet by mouth in the morning. 30 Tablet 1 11/18/19 25 Active Fluticasone Propionate 50 MCG/ACT Nasal Suspension (Flonase)Indicati ons:Asthma Administer 2 Sprays into nostril 2 times a day as needed for Congestion. 16 g 1 11/18/19 25 Active Loratadine 10 MG Oral Tablet (Claritin)Indicat ions:Allergic Rhinitis Take 1 Tablet by mouth in the morning. 30 Tablet 2 10/10/19 25 025 Discontin ued(Refil l) Bismuth Subsalicylate 262 MG/15ML Oral Suspension (CVS [...] Diagnosed Date Food insecurity 06/23/2023 Overview: Per [facility] Protocol Severe episode of recurrent major depressive disorder, without psychotic features 06/01/2023 PTSD (post-traumatic stress disorder) 06/01/2023 Cannabis abuse 06/01/2023 Iron deficiency anemia 03/25/2023 Substance abuse 12/31/2022 Overview (01/15/2023): UDS + meth 11/23/22 [facility], new onset of paranoia and confusion UDS [...] PSG 2 [facility] Gastroesophageal reflux disease with esophagitis 03/14/2011 HTN, [...] IM 11/09/2009 Pneumococcal Conjugate Vacci ne, 20-valent ([id number]) 02/04/2023 Pneumococcal Polysaccharide PPV23 (Pneumovax) 01/17/2009 Seasonal [...] Never 06/02/2023 How often do you attend presybeterian or gnosticist serv ices? Never 06/02/2023 Do you belong to any clubs o r organizations such as presybeterian groups, unions, fraternal or athletic groups, or [...] Recorded PHQ Adult Total Score 0 02/04/2023 [facility] - Occupational Stress [...] No 12/22/2023 Does the household have a [facility]ension genesys hospitalr source of income? (Household - for [...] Yes 06/03/2023 2:49 PM EDT Elda Peck, Stained Glass Glazier * Do you have difficulty dressing or [...] encounter Miscellaneous Notes * Telephone Encounter - Beverley Zambrano RPh - 11/17/2024 10:34 AM EST Signed Prescriptions: Disp Refills Loratadine 10 MG Oral Tablet (Claritin) 30 Tab*1 Sig: Take 1 Tablet by mouth in the morning.Authorizing Provider: VAL PERSAUD User: BEVERLEY ZAMBRANO MA documented in this encounter Plan of Treatment Upcoming Encounters Date Type Department Care Team (Late st Contact Info) Description 11/18/2024 1:00 PM EST Office Visit Hematology/Oncology [address] [place], [place] [phone] Michaela Javier CRNP [address] [facility] [place] [address] 11/18/2024 2:00 PM EST Hem/Onc Treatment Hematology/Oncology Treatment, [place] [address] [facility], [place] [address] Vikki, Chair 6 [facility] [address] [facility] [place], [place] [address] Health Maintenance Due Date Last Done Comments DISCUSS TOBACCO CESSATION (REFER TO SMARTSET #6725) 1965 O2 ASSESSMENT COMPLETED IN PAST YEAR [...] as of this encounter Visit Diagnoses Diagnosis Seasonal allergies Allergic rhinitis, cause unspecified documented in this encounter Advance Directives * [...] Directives occurred with: Not Discussed Care Teams Gospel Worker Relationship Specialty Start Date End Date Val Persaud DO [address] [place] [address] PCP - General Family Medicine 02/08/16 documented as of this encounter
--- OUTSIDE RECORDS SUMMARY | 2024-11-18 23:11 | External Medical Summary | Summary of Care ---
Author Name Unknown Organization [facility] Address [address] [place] [place] [address] Phone [phone] Care Team Providers Care Boarding House Cook Name Role Phone Val Persaud DO Primary Care Provider [phone] Reason for Visit * Reason Onset Date Comments Medication Refill 11/15/2024 Encounter Details Date Type Department Care Team (Late st Contact Info) Description 11/15/2024 Refill Family Practice [facility] [address] [facility] [place] [address] Val Persaud DO [address] [facility] [place] [address] Allergies Active Allergy Reactions Criticality Noted Date [...] Inhalation Solution (Duoneb)Indicatio ns:COPD, moderate ([facility]) Inhale 3 mL via nebulizer in the morning and 3 mL at noon and 3 mL in the evening and 3 mL before bedtime. 180 mL 1 06/13/20 24 Active Fluticasone-Salme terol 115-21 MCG/ACT Inhalation Aerosol (Advair HFA)Indications:C OPD, group B, by GOLD 2017 classification ([facility]),Intermitten t asthma with reliever use up [...] (abdominal pain). 120 Capsule 11/17/19 25 Active Dicyclomine HCl 10 MG Oral Capsule (Bentyl)Indicatio ns:Abdominal Distress Take 2 Capsules by mouth 4 times a day as needed for Other (abdominal pain). 120 Capsule 10/11/19 25 025 Discontin ued(Refil l) documented as of this encounter (statuses as of 11/16/2024) Active Problems Problem Noted Date Diagnosed Date Food insecurity 06/23/2023 Overview: Per [facility] Protocol Severe episode of recurrent major depressive disorder, without psychotic features 06/01/2023 PTSD (post-traumatic stress disorder) 06/01/2023 Cannabis abuse 06/01/2023 Iron deficiency anemia 03/25/2023 Substance abuse 12/31/2022 Overview (01/15/2023): UDS + meth 11/23/22 [facility], new onset of paranoia and confusion UDS [...] very minimal noted on overnight PSG 2 [facility] Gastroesophageal reflux disease with esophagitis 03/14/2011 HTN, [...] IM 11/09/2009 Pneumococcal Conjugate Vacci ne, 20-valent ([id number]) 02/04/2023 Pneumococcal Polysaccharide PPV23 (Pneumovax) 01/17/2009 Seasonal [...] Never 06/02/2023 How often do you attend restoration or congregation serv ices? Never 06/02/2023 Do you belong to any clubs o r organizations such as restoration groups, unions, fraternal or athletic groups, or [...] you are drinking? Patient does not drink 3 Q3: How often do you have si x or more drinks on one occasion? Never 06/02/2023 Overall Financial Resource Strain (CARDIA) Answe r Date Recorded How hard is it for you to pa y for the very basics like food, housing, medical care, and heating? Very hard 06/02/2023 PHQ-2 Answer Date Recorded PHQ Adult Total Score 0 02/04/2023 [facility] - Occupational Stress Questionnaire Answer [...] place to sleep or slept in a jail (including now)? Yes 06/02/2023 Childcare Answer Date [...] Yes 06/03/2023 2:49 PM EDT Elda Peck, Route Manager * Do you have difficulty dressing [...] Telephone Encounter - Val Persaud DO - 11/16/2024 2:54 PM ESTSigned Prescriptions: Disp Refills Dicyclomine HCl 10 MG Oral Capsule (Bentyl)120 Ca*0 Sig: Take 2Capsules by mouth 4 times a day as needed for Other (abdominal pain).Authorizing Provider: VAL PERSAUD * Telephone Encounter - Nighat Treviño, MED ASSIST - 11/16/2024 2:50 PM EST Pending Prescriptions: Disp Refills Dicyclomine HCl 10 MG Oral Capsule (Bentyl)120 Ca*0 Sig: Take 2 Capsules by mouth 4 times a day as needed for Other (abdominal pain). * Telephone Encounter - Anjana Hardin - 11/16/2024 2:15 PM ESTPending Prescriptions: Disp Refills Dicyclomine HCl 10 MG Oral Capsule (Bentyl)120 Ca*0 Sig: Take 2Capsules by mouth 4 times a day as needed for Other (abdominal pain). documented in this encounter Plan of Treatment Upcoming Encounters Date Type Department Care Team (Late st Contact Info) Description 11/17/2024 12:00 PM EST Laboratory Laboratory [facility] [address] [facility] [place] [phone] Vikki Lab [place] [address] [address] [place], [place] [address] 11/18/2024 1:00 PM EST Office Visit Hematology/Oncology [facility] [address] [facility] [place], [place] [phone] Michaela Javier CRNP [address] [place] [address] [place] [address] 11/18/2024 2:00 PM EST Hem/Onc Treatment Hematology/Oncology Treatment, [place] [address] [facility], [place] [address] Vikki, Chair 6 Hem Onc [address] [place], [place] [address] Health Maintenance Due Date Last Done Comments DISCUSS TOBACCO CESSATION (REFER TO SMARTSET #[id number]) 1965 O2 ASSESSMENT COMPLETED IN PAST YEAR [...] 02/05/2028 HPV/Co-Test 02/05/2028 02/04/2023 Colonoscopy 06/22/2029 06/22/2019, 1004/2019, 01/13/2019, Additional history exists Colorectal Cancer Screening [...] Directives occurred with: Not Discussed Care Teams Boarding House Cook Relationship Specialty Start Date End Date Val Persaud DO [address] [place] [address] PCP - General Family Medicine 02/08/16 documented as of this encounter
--- OUTSIDE RECORDS SUMMARY | 2024-11-18 23:11 | External Medical Summary | Summary of Care ---
Author Name Unknown Organization [facility] Address [address] [facility] [place] [address] Phone [phone] Care Team Providers Care Investment Counselor Name Role Phone Val Cruz DO Primary Care Provider Reason for Visit * Reason Onset Date Comments Medication Refill 11/10/2024 Encounter Details Date Type Department Care Team (Late st Contact Info) Description 11/10/[address] [facility] [address] [place] [address] aVl Cruz DO [address] [place] [address] Allergies Active Allergy Reactions Criticality Noted Date [...] as of this encounter (statuses as of 11/12/2024) Medications Simethicone 80 MG Oral Tablet Chewable (Gas Relief)Indication s:Gas Pain Take 1 Tablet by mouth every 6 hours as needed for Gas. 30 Tablet 5 04/28/20 24 Active Ipratropium-Albut mike 0.5-2.5 (3) MG/3ML Inhalation Solution (Duoneb)Indicatio ns:COPD, moderate ([facility]) Inhale 3 mL via nebulizer in the morning and 3 mL at noon and 3 mL in the evening and 3 mL before bedtime. 180 mL 1 06/13/20 24 Active Fluticasone-Salme terol 115-21 MCG/ACT Inhalation Aerosol (Advair HFA)Indications:C OPD, group B, by GOLD 2017 classification ([facility]),Intermitten t asthma with reliever use up to [...] hours as needed for Anxiety. 30 Tablet 11/12/19 25 Active QUEtiapine Fumarate 25 MG Oral Tablet (SEROquel)Indicat ions:Anxiety Take 1 Tablet by mouth every 8 hours as needed for Anxiety. 30 Tablet 11/01/19 25 025 Discontin ued(Refil l) documented as of this encounter (statuses as of 11/12/2024) Active Problems Problem Noted Date Diagnosed Date Food insecurity 06/23/2023 Overview: Per [facility] Protocol Severe episode of recurrent major depressive disorder, without psychotic features 06/01/2023 PTSD (post-traumatic stress disorder) 06/01/2023 Cannabis abuse 06/01/2023 Iron deficiency anemia 03/25/2023 Substance abuse 12/31/2022 Overview (01/15/2023): UDS + meth 11/23/22 [place], new onset of paranoia and confusion UDS [...] noted on overnight PSG 2 [facility] Gastroesophageal reflux disease with esophagitis 03/14/2011 HTN, goal below 130/80 03/13/2011 Fibromyalgia 04/05/2010 Chronic nausea 04/02/2010 Overview (07/08/2017): ICD-10 update of inactive term Intermittent asthma with rel iever use up to twice per week without complication 01/04/2010 ANDRE (generalized anxiety disorder) 10/24/2009 Dyslipidemia 08/24/2009 Overview (08/24/2009): Per Lipid Taxonomy. Hypothyroidism 05/12/2009 documented as of this encounter (statuses as of 11/12/2024) Resolved Problems Problem Noted Date Diagnosed Date [...] as of this encounter (statuses as of 11/12/2024) Immunizations Name Administration Dates Next Due COVID-19, LNP-s, No Preserve , Lloyd-sucrose, Ages 12+ (Pfizer) 03/20/2022 H1N1 2009 Influenza, IM 11/09/2009 Pneumococcal Conjugate Vacci ne, 20-valent ([id number]) 02/04/2023 Pneumococcal Polysaccharide PPV23 (Pneumovax) 01/17/2009 Seasonal [...] Never 06/02/2023 How often do you attend confucianism or restoration serv ices? Never 06/02/2023 Do you belong to any clubs o r organizations such as confucianism groups, unions, fraternal or athletic groups, or [...] 0 02/04/2023 [facility] - Occupational Stress Questionnaire Answer [...] place to sleep or slept in a mcc (including now)? Yes 06/02/2023 Childcare Answer Date [...] 4:20 PM EST Sexual Orientation Straight 11/04/2019 4 :20 PM EST Occupation Industry Job Start Date [...] Yes 06/03/2023 2:49 PM EDT Elda Peck, Sausage Grinder * Do you have difficulty dressing or [...] Assessment Author No 09/01/2019 1:35 PM Columba Marhc RN documented as of this encounter Mental Status * Because of a physical, mental, or emotional condition, do you have serious difficulty concentrating, remembering, or making decisions? (5 years old or older) Answer Entry Date Author No 09/01/2019 1:35 PM Columba March RN documented in this encounter Miscellaneous Notes * Telephone Encounter - Raul Rojo RPh - 11/12/2024 10:43 AM EST Signed Prescriptions: Disp Refills QUEtiapine Fumarate 25 MG Oral Tablet (SER*30 Tab*0 Sig: Take 1 Tablet by mouth every 8 hours as needed for Anxiety.Authorizing Provider: VAL CRUZUser: RAUL ROJO documented in this encounter Plan of Treatment Upcoming Encounters Date Type Department Care Team (Late st Contact Info) Description 11/17/2024 12:00 PM EST Laboratory Laboratory [place] Wong [address] [place] [phone] Erwin Florez [facility] [address] [place] [address] 11/18/2024 1:00 PM EST Office Visit Hematology/Oncology [facility] Vikki [place] [address] [place] [phone] Michaela Javier CRNP [address] [facility] [place] [address] 11/18/2024 2:00 PM EST Hem/Onc Treatment Hematology/Oncology Treatment, [place] [address] [place] [phone] Vikki, Chair 6 Hem Onc [address] [facility] [place] [address] Health Maintenance Due Date Last Done Comments DISCUSS TOBACCO CESSATION (REFER TO SMARTSET #[id number]) 1965 O2 ASSESSMENT COMPLETED IN PAST YEAR [...] Directives occurred with: Not Discussed Care Teams Investment Counselor Relationship Specialty Start Date End Date Val Cruz DO [address] [facility] [place] [address] PCP - General Family Medicine 02/08/16 documented as of this encounter
--- OUTSIDE RECORDS SUMMARY | 2024-11-18 23:11 | External Medical Summary | Summary of Care ---
Author Name Unknown Organization [facility] Address [address] [facility] [place] [address] Phone [phone] Care Team Providers Care Neon Molder Name Role Phone Val Persaud DO Primary Care Provider Reason for Visit * Reason Onset Date Comments Medication Refill 11/15/2024 Encounter Details Date Type Department Care Team (Late st Contact Info) Description 11/15/2024 Refill Family Practice [facility] [address] [facility] [address] Val Persaud DO [address] [facility] [place] [address] Allergic rhinitis, unspecified seasonality, unspecified trigger Allergies Active Allergy Reactions Criticality Noted Date [...] (3) MG/3ML Inhalation Solution (Duoneb)Indicatio ns:COPD, moderate ([facility]) Inhale 3 mL via nebulizer in the morning and 3 mL at noon and 3 mL in the evening and 3 mL before bedtime. 180 mL 1 06/13/20 24 Active Fluticasone-Salme terol 115-21 MCG/ACT Inhalation Aerosol (Advair HFA)Indications:C OPD, group B, by GOLD 2017 classification ([facility]),Intermitten t asthma with reliever use [...] (abdominal pain). 120 Capsule 11/17/19 25 Active Fluticasone Propionate 50 MCG/ACT Nasal Suspension (Flonase)Indicati ons:Asthma Administer 2 Sprays into nostril 2 times a day as needed for Congestion. 16 g 1 11/18/19 25 Active Fluticasone Propionate 50 MCG/ACT Nasal Suspension (Flonase)Indicati ons:Asthma Administer 2 Sprays into nostril 2 times a day as needed for Congestion. 16 g 1 10/04/19 25 025 Discontin ued(Refil l) Loratadine 10 MG Oral Tablet (Claritin)Indicat ions:Allergic [...] Diagnosed Date Food insecurity 06/23/2023 Overview: Per [facility] Protocol Severe episode of recurrent major depressive disorder, without psychotic features 06/01/2023 PTSD (post-traumatic stress disorder) 06/01/2023 Cannabis abuse 06/01/2023 Iron deficiency anemia 03/25/2023 Substance abuse 12/31/2022 Overview (01/15/2023): UDS + meth 11/23/22 [facility], new onset of paranoia and confusion [...] very minimal noted on overnight PSG 2 [facility] Gastroesophageal reflux disease with esophagitis 03/14/2011 [...] IM 11/09/2009 Pneumococcal Conjugate Vacci ne, 20-valent ([id number]) 02/04/2023 Pneumococcal Polysaccharide PPV23 (Pneumovax) 01/17/2009 Seasonal [...] Never 06/02/2023 How often do you attend restorationism or mandaen serv ices? Never 06/02/2023 Do you belong to any clubs o r organizations such as restorationism groups, unions, fraternal or athletic groups, or [...] Recorded PHQ Adult Total Score 0 02/04/2023 [facility] - Occupational Stress Questionnaire Answer Date [...] Yes 06/03/2023 2:49 PM EDT Elda Peck, Network Management Specialist * Do you have difficulty dressing [...] Encounter - Beverley Zambrano RPh - 11/17/2024 10:30 AM EST Please contact patient so that an appointment can be scheduled with her PRIMARY CARE provider. Refill authorized to hold patient over in the mean time. Last Visit: 06/24/2023 (in office), 04/23/2022 (telemedicine) Next Visit: Visit date not found Thank you, Beverley Zambrano, RakeshD Clinical Pharmacist [facility] [phone] 11/17/2024, 10:30 AM * Telephone Encounter - Beverley Zambrano RPh - 11/17/2024 10:30 AM EST Signed Prescriptions: Disp Refills Fluticasone Propionate 50 MCG/ACT Nasal Valdez*16 g 1 Sig: Administer 2 Sprays into nostril 2 times a day as needed for Congestion.Authorizing Provider: VAL PERSAUD User: BEVERLEY ZAMBRANO ---- documented in this encounter Plan of Treatment Upcoming Encounters Date Type Department Care Team (Late st Contact Info) Description 11/18/2024 1:00 PM EST Office Visit Hematology/Oncology [address] [place] [address] Michaela Javier CRNP [address] [place] [address] 11/18/2024 2:00 PM EST Hem/Onc Treatment Hematology/Oncology Treatment, [address] [place] [address] Vikki, Chair 6 Hem Onc [address] [place] [address] Health Maintenance Due Date Last Done Comments DISCUSS TOBACCO CESSATION (REFER TO SMARTSET #[id number]) 1965 O2 ASSESSMENT COMPLETED IN PAST YEAR [...] as of this encounter Visit Diagnoses Diagnosis Allergic rhinitis, unspecified seasonality, unspecified trigger documented in this encounter Advance Directives * [...] Directives occurred with: Not Discussed Care Teams Neon Molder Relationship Specialty Start Date End Date Val Persaud DO [address] [place] [address] PCP - General Family Medicine 02/08/16 documented as of this encounter
--- OUTSIDE RECORDS SUMMARY | 2024-11-18 23:12 | External Medical Summary | Summary of Care ---
Author Name Unknown Organization [facility] Address [address] [facility] [place] [address] Phone [phone] Care Team Providers Care Parachute Supervisor Name Role Phone Ninfa Cruz DO Primary Care Provider [phone] Reason for Visit * Reason Onset Date Comments Medication Refill 11/08/2024 Encounter Details Date Type Department Care Team (Late st Contact Info) Description 11/08/2024 Refill Family Practice [facility] [address] [place] [address] Ninfa Cruz DO [address] [place] [address] Allergies Active Allergy Reactions Criticality Noted Date [...] (3) MG/3ML Inhalation Solution (Duoneb)Indication s:COPD, moderate ([facility]) Inhale 3 mL via nebulizer in the morning and 3 mL at noon and 3 mL in the evening and 3 mL before bedtime. 180 mL 1 06/13/20 24 Active Fluticasone-Salmet mike 115-21 MCG/ACT Inhalation Aerosol (Advair HFA)Indications:CO PD, group B, by GOLD 2017 classification ([facility]),Intermittent asthma with reliever use up to twice [...] for Anxiety. 30 Tablet 11/01/19 25 Active Bismuth Subsalicylate 262 MG/15ML Oral Suspension (Pepto-Bismol) Take 30 mL by mouth every 4 hours as needed for Gas. 30 mL 5 11/05/19 25 Active Vitamin B-12 1000 MCG Oral Tablet (Cyanocobalamin)In dications:Vitamin Deficiency Prophylaxis Take 1 Tablet by mouth in the morning. 100 Tablet 3 11/08/19 25 Active documented as of this encounter (statuses as of 11/09/2024) Active Problems Problem Noted Date Diagnosed Date Food insecurity 06/23/2023 Overview: Per [facility] Protocol Severe episode of recurrent major depressive disorder, without psychotic features 06/01/2023 PTSD (post-traumatic stress disorder) 06/01/2023 Cannabis abuse 06/01/2023 Iron deficiency anemia 03/25/2023 Substance abuse 12/31/2022 Overview (01/15/2023): UDS + meth 11/23/22 [facility], new onset of paranoia and [...] very minimal noted on overnight PSG 2 [facility] Gastroesophageal reflux disease with esophagitis [...] IM 11/09/2009 Pneumococcal Conjugate Vacci ne, 20-valent ([id number]) 02/04/2023 Pneumococcal Polysaccharide PPV23 (Pneumovax) 01/17/2009 Seasonal [...] Never 06/02/2023 How often do you attend pentecostal or zoroastrian serv ices? Never 06/02/2023 Do you belong to any clubs o r organizations such as pentecostal groups, unions, fraternal or athletic groups, or [...] Recorded PHQ Adult Total Score 0 02/04/2023 [facility] [place] of Occupat ional Health - Occupational Stress [...] Yes 06/03/2023 2:49 PM EDT Elda Peck, Shift Supervisor Melting * Do you have difficulty dressing or [...] encounter Miscellaneous Notes * Telephone Encounter - Anjana Hardin - 11/09/2024 4:30 AM ESTRefused Prescriptions: Disp Refills Vitamin B-12 1000 MCG Oral Tablet (Cyanoco*100 Ta*3 Sig: Take 1Tablet by mouth in the morning.Refused By: CARMELO HARDINeason for Refusal: Duplicate Request------- documented in this encounter Plan of Treatment Upcoming Encounters Date Type Department Care Team (Late st Contact Info) Description 11/17/2024 12:00 PM EST Laboratory Laboratory [facility] [address] [place] [phone] Erwin Florez [place] [address] [address] [place] [address] 11/18/2024 1:00 PM EST Office Visit Hematology/Oncology [facility] [place] [address] [place] [phone] Michaela Javier CRNP [address] [facility] [address] 11/18/2024 2:00 PM EST Hem/Onc Treatment Hematology/Oncology Treatment, [place] [address] [place], [place] [address] Vikki, Chair 4 Hem Onc [address] [place], [place] [address] Health Maintenance Due Date Last Done Comments DISCUSS TOBACCO CESSATION (REFER TO SMARTSET #[id number]) 1965 O2 ASSESSMENT COMPLETED IN PAST YEAR [...] Directives occurred with: Not Discussed Care Teams Parachute Supervisor Relationship Specialty Start Date End Date Ninfa Cruz DO 132 [facility] [place] [address] PCP - General Family Medicine 02/08/16 documented as of this encounter
--- OUTSIDE RECORDS SUMMARY | 2024-11-18 23:12 | External Medical Summary | Summary of Care ---
Author Name Unknown Organization [facility] Address [address] [place] [address] Phone [phone] Care Team Providers Care Wood Router Hand Name Role Phone Ninfa Cruz DO Primary Care Provider Reason for Visit * Reason Onset Date Comments Appointment 11/08/2024 Encounter Details Date Type Department Care Team (Late st Contact Info) Description 11/08/2024 Telephone Hematology/Oncology [facility] [address] [place] [address] Services, Scheduling [address] [place] [address] Appointment Allergies Active Allergy Reactions Criticality Noted Date [...] (3) MG/3ML Inhalation Solution (Duoneb)Indication s:COPD, moderate ([facility]) Inhale 3 mL via nebulizer in the morning and 3 mL at noon and 3 mL in the evening and 3 mL before bedtime. 180 mL 1 06/13/20 24 Active Fluticasone-Salmet mike 115-21 MCG/ACT Inhalation Aerosol (Advair HFA)Indications:CO PD, group B, by GOLD 2017 classification ([facility]),Intermittent asthma with reliever use up [...] very minimal noted on overnight PSG 2 [facility] Gastroesophageal reflux disease with esophagitis [...] IM 11/09/2009 Pneumococcal Conjugate Vacci ne, 20-valent ([id number]) 02/04/2023 Pneumococcal Polysaccharide PPV23 (Pneumovax) 01/17/2009 Seasonal [...] Never 06/02/2023 How often do you attend spiritism or uatsdin serv ices? Never 06/02/2023 Do you belong to any clubs o r organizations such as spiritism groups, unions, fraternal or athletic groups, or [...] Recorded PHQ Adult Total Score 0 02/04/2023 [facility] [place] of Occupat ional Health - Occupational Stress [...] place to sleep or slept in a longterm (including now)? Yes 06/02/2023 Childcare Answer Date [...] Yes 06/03/2023 2:49 PM EDT Elda Peck, Ash Kier Boiler * Do you have difficulty dressing or [...] 1:35 PM EST Columba Houston RN documented as of this encounter Mental Status * Because of a physical, mental, or emotional condition, do you have serious difficulty concentrating, remembering, or making decisions? (5 years old or older) Answer Entry Date Author No 09/01/2019 1:35 PM EST Columba Houston RN documented in this encounter Miscellaneous Notes * Telephone Encounter - Monica Lang OSA - 11/08/2024 3:22 PM EST Pt is scheduled for all apts and is aware * Telephone Encounter - Byron Causey RN - 11/08/2024 3:07 PM EST Scheduling- patient needs to be scheduled for the following: - New visit with INTERSTATE BUS DRIVER -Labs either day before or 1 HR prior to office visit "CBCD,B12,Folic Acid" - 2 HR treatment "Venofer" on the same day as visit if possible. * Telephone Encounter - Foster Karimi OSA - 11/08/2024 2:50 PM EST Patient called in stating she needs to reschedule an iron infusion. Please call her back [phone] documented in this encounter Plan of Treatment Upcoming Encounters Date Type Department Care Team (Late st Contact Info) Description 11/17/2024 12:00 PM EST Laboratory Laboratory [place] Tom Florez [address] [place] [phone] Vikki Lab Scen[address] [place] [address] 11/18/2024 1:00 PM EST Office Visit Hematology/Oncology [facility] [place] 200 [facility] [place], [place] [address] Michaela Javier CRNP 400 [facility] [place] [address] 11/18/2024 2:00 PM EST Hem/Onc Treatment Hematology/Oncology Treatment, [place] 200 [facility], [place] [phone] Vikki, Chair 4 Hem Onc [facility] 200 [facility] [place], [place] [address] Health Maintenance Due Date Last Done Comments DISCUSS TOBACCO CESSATION (REFER TO SMARTSET #[id number]) 1965 O2 ASSESSMENT COMPLETED IN PAST YEAR [...] Directives occurred with: Not Discussed Care Teams Wood Router Hand Relationship Specialty Start Date End Date Ninfa Cruz DO [address] [place] [address] PCP - General Family Medicine 02/08/16 documented as of this encounter
--- OUTSIDE RECORDS SUMMARY | 2024-11-18 23:12 | External Medical Summary | Summary of Care ---
Author Name Unknown Organization [facility] Address [address] [place] [address] Phone [phone] Care Team Providers Care Pediatrics Hospitalist Name Role Phone Ninfa Cruz DO Primary Care Provider Reason for Visit * Reason Onset Date Comments Appointment 11/08/2024 Encounter Details Date Type Department Care Team (Late st Contact Info) Description 11/08/2024 Telephone Hematology/Oncology [facility] [address] [place] [address] Services, Scheduling [address] [place] [address] Appointment Allergies Active Allergy Reactions Criticality Noted [...] (3) MG/3ML Inhalation Solution (Duoneb)Indication s:COPD, moderate ([facility]) Inhale 3 mL via nebulizer in the morning and 3 mL at noon and 3 mL in the evening and 3 mL before bedtime. 180 mL 1 06/13/20 24 Active Fluticasone-Salmet mike 115-21 MCG/ACT Inhalation Aerosol (Advair HFA)Indications:CO PD, group B, by GOLD 2017 classification ([facility]),Intermittent asthma with reliever use up to twice [...] very minimal noted on overnight PSG 2 [facility] Gastroesophageal reflux disease with esophagitis 03/14/2011 HTN, [...] IM 11/09/2009 Pneumococcal Conjugate Vacci ne, 20-valent ([id number]) 02/04/2023 Pneumococcal Polysaccharide PPV23 (Pneumovax) 01/17/2009 Seasonal [...] Never 06/02/2023 How often do you attend sabianist or alevism serv ices? Never 06/02/2023 Do you belong to any clubs o r organizations such as sabianist groups, unions, fraternal or athletic groups, or [...] Recorded PHQ Adult Total Score 0 02/04/2023 [facility] [place] of Occupat ional Health - Occupational Stress [...] place to sleep or slept in a intermediate (including now)? Yes 06/02/2023 Childcare Answer Date [...] Yes 06/03/2023 2:49 PM EDT Elda Peck, University Relations Director * Do you have difficulty dressing or [...] for the following: - New visit with SIDE PULLER -Labs either day before or 1 HR prior to office visit "CBCD,B12,Folic Acid" - 2 HR treatment "Venofer" on the same day as visit if possible. * Telephone Encounter - Foster Karimi OSA - 11/08/2024 2:50 PM EST Patient called in stating she needs to reschedule an iron infusion. Please call her back [phone] documented in this encounter Plan of Treatment Upcoming Encounters Date Type Department Care Team (Late st Contact Info) Description 11/17/2024 12:00 PM EST Laboratory Laboratory [place] Tom Florez [address] [place] [phone] Vikki Lab Scen[address] [place] [address] 11/18/2024 1:00 PM EST Office Visit Hematology/Oncology [facility] [place] 200 [facility] [place], [place] [address] Michaela Javier CRNP [address] [facility] [place] [address] 11/18/2024 2:00 PM EST Hem/Onc Treatment Hematology/Oncology Treatment, [place] 200 [facility], [place] [phone] Vikki, Chair 4 Hem Onc [facility] 200 [facility] [place], [place] [address] Health Maintenance Due Date Last Done Comments DISCUSS TOBACCO CESSATION (REFER TO SMARTSET #[id number]) 1965 O2 ASSESSMENT COMPLETED IN PAST YEAR [...] Directives occurred with: Not Discussed Care Teams Pediatrics Hospitalist Relationship Specialty Start Date End Date Ninfa Cruz DO [address] [place] [address] PCP - General Family Medicine 02/08/16 documented as of this encounter
--- OUTSIDE RECORDS SUMMARY | 2024-11-18 23:12 | External Medical Summary | Summary of Care ---
Author Name Unknown Organization [facility] Address [address] [place] [address] Phone [phone] Care Team Providers Care Battery Stacker Name Role Phone Ninfa Cruz DO Primary Care Provider Reason for Visit * Reason Onset Date Comments Appointment 11/08/2024 Encounter Details Date Type Department Care Team (Late st Contact Info) Description 11/08/2024 Telephone Hematology/Oncology [facility] [address] [place] [address] Services, Scheduling [address] [place] [address] Appointment Allergies Active Allergy Reactions Criticality Noted [...] (3) MG/3ML Inhalation Solution (Duoneb)Indication s:COPD, moderate ([facility]) Inhale 3 mL via nebulizer in the morning and 3 mL at noon and 3 mL in the evening and 3 mL before bedtime. 180 mL 1 06/13/20 24 Active Fluticasone-Salmet mike 115-21 MCG/ACT Inhalation Aerosol (Advair HFA)Indications:CO PD, group B, by GOLD 2017 classification ([facility]),Intermittent asthma with reliever use up to [...] very minimal noted on overnight PSG 2 [facility] Gastroesophageal reflux disease with esophagitis 03/14/2011 HTN, [...] IM 11/09/2009 Pneumococcal Conjugate Vacci ne, 20-valent ([id number]) 02/04/2023 Pneumococcal Polysaccharide PPV23 (Pneumovax) 01/17/2009 Seasonal [...] Never 06/02/2023 How often do you attend gnosticist or anabaptism serv ices? Never 06/02/2023 Do you belong to any clubs o r organizations such as gnosticist groups, unions, fraternal or athletic groups, or [...] Recorded PHQ Adult Total Score 0 02/04/2023 [facility] of Occupat ional Health - Occupational Stress [...] place to sleep or slept in a retirement (including now)? Yes 06/02/2023 Childcare Answer Date [...] Yes 06/03/2023 2:49 PM EDT Elda Peck, Photo Print Specialist * Do you have difficulty dressing [...] for the following: - New visit with DIRECTIONAL DRILLER -Labs either day before or 1 HR prior to office visit "CBCD,B12,Folic Acid" - 2 HR treatment "Venofer" on the same day as visit if possible. * Telephone Encounter - Foster Karimi OSA - 11/08/2024 2:50 PM EST Patient called in stating she needs to reschedule an iron infusion. Please call her back [phone] documented in this encounter Plan of Treatment Upcoming Encounters Date Type Department Care Team (Late st Contact Info) Description 11/17/2024 12:00 PM EST Laboratory Laboratory [facility]ore[facility] [address] [place] [phone] [facility] [address] [place] [address] 11/18/2024 1:00 PM EST Office Visit Hematology/Oncology [facility] [place] [address] [facility] [place], [place] [address] Michaela Javier CRNP [address] [facility] [place] [address] 11/18/2024 2:00 PM EST Hem/Onc Treatment Hematology/Oncology Treatment, [place] [address] [facility], [place] [phone] Vikki, Chair 4 Hem Onc [facility] [address] [facility] [place], [place] [address] Health Maintenance Due Date Last Done Comments DISCUSS TOBACCO CESSATION (REFER TO SMARTSET #1614) 1965 O2 ASSESSMENT COMPLETED IN PAST YEAR [...] Directives occurred with: Not Discussed Care Teams Battery Stacker Relationship Specialty Start Date End Date Ninfa Cruz DO [address] [place] [address] PCP - General Family Medicine 02/08/16 documented as of this encounter
--- OUTSIDE RECORDS SUMMARY | 2024-11-18 23:12 | External Medical Summary | Summary of Care ---
Author Name Unknown Organization [facility] Address [address] [facility] [place] [address] Phone [phone] Care Team Providers Care Sustainability Executive Director Name Role Phone Ninfa Cruz DO Primary Care Provider Reason for Visit * Reason Onset Date Comments Medication Refill 11/05/2024 Encounter Details Date Type Department Care Team (Late st Contact Info) Description 11/05/2024 Refill Family Practice [facility] [address] [place] [address] Ninfa Cruz DO [address] [place] [address] Gastroesophageal reflux disease with esophagitis without hemorrhage [...] as of this encounter (statuses as of 11/06/2024) Medications Simethicone 80 MG Oral Tablet Chewable (Gas Relief)Indication s:Gas Pain Take 1 Tablet by mouth every 6 hours as needed for Gas. 30 Tablet 5 04/28/20 24 Active Ipratropium-Albut mike 0.5-2.5 (3) MG/3ML Inhalation Solution (Duoneb)Indicatio ns:COPD, moderate ([facility]) Inhale 3 mL via nebulizer in the morning and 3 mL at noon and 3 mL in the evening and 3 mL before bedtime. 180 mL 1 06/13/20 24 Active Fluticasone-Salme terol 115-21 MCG/ACT Inhalation Aerosol (Advair HFA)Indications:C OPD, group B, by GOLD 2017 classification ([facility]),Intermitten t asthma with reliever use up [...] 5 11:26 AM EST 09/24/19 25 Active Vitamin B-12 1000 MCG Oral Tablet (Cyanocobalamin)I ndications:Vitami n Deficiency Prophylaxis Take 1 Tablet by mouth in the morning. 100 Tablet 3 09/27/19 25 Active Prochlorperazine Maleate 10 MG Oral [...] Gas. 30 mL 5 11/05/19 25 Active Fexofenadine HCl 180 MG Oral [...] 025 Discontin ued(Patie nt preferenc e/discont inuation) documented as of this encounter (statuses as of 11/06/2024) Active Problems Problem Noted Date Diagnosed Date Food insecurity 06/23/2023 Overview: Per [facility] Protocol Severe episode of recurrent major depressive disorder, without psychotic features 06/01/2023 PTSD (post-traumatic stress disorder) 06/01/2023 Cannabis abuse 06/01/2023 Iron deficiency anemia 03/25/2023 Substance abuse 12/31/2022 Overview (01/15/2023): UDS + meth 11/23/22 [facility], new onset of paranoia and [...] very minimal noted on overnight PSG 2 [facility] Gastroesophageal reflux disease with esophagitis 03/14/2011 HTN, goal below 130/80 03/13/2011 Fibromyalgia 04/05/2010 Chronic nausea 04/02/2010 Overview (07/08/2017): ICD-10 update of inactive term Intermittent asthma with rel iever use up to twice per week without complication 01/04/2010 ANDRE (generalized anxiety disorder) 10/24/2009 Dyslipidemia 08/24/2009 Overview (08/24/2009): Per Lipid Taxonomy. Hypothyroidism 05/12/2009 documented as of this encounter (statuses as of 11/06/2024) Resolved Problems Problem Noted Date Diagnosed Date [...] Vasomotor flushing 01/23/2012 7 Chest pain, non-cardiac 11/01/2011 05/04/2017 Diarrhea 04/12/2011 02/09/2017 History of tobacco use [...] as of this encounter (statuses as of 11/06/2024) Immunizations Name Administration Dates Next Due COVID-19, LNP-s, No Preserve , Lloyd-sucrose, Ages 12+ (Pfizer) 03/20/2022 H1N1 2008 Influenza, IM 11/09/2009 Pneumococcal Conjugate Vacci ne, 20-valent ([id number]) 02/04/2023 Pneumococcal Polysaccharide PPV23 (Pneumovax) 01/17/2009 Seasonal [...] Never 06/02/2023 How often do you attend baptist or druze serv ices? Never 06/02/2023 Do you belong to any clubs o r organizations such as baptist groups, unions, fraternal or athletic groups, or [...] Recorded PHQ Adult Total Score 0 02/04/2023 [facility] of Occupat ional Health - Occupational [...] place to sleep or slept in a detention (including now)? Yes 06/02/2023 Childcare Answer Date [...] Yes 06/03/2023 2:49 PM EDT Elda Peck, Electrotype Finisher * Do you have difficulty dressing or [...] encounter Miscellaneous Notes * Telephone Encounter - Kenisha Sandhu [facility] - 11/06/2024 12:44 PM ESTRefused Prescriptions: Disp Refills Dexlansoprazole 60 MG Oral Capsule Delayed*90 Cap*1 Sig: Take 1Capsule by mouth in the morning.Refused By: WON SANDHUNReason for Refusal: Too soonReason for Refusal Comment: sent 10/28 90x1 documented in this encounter Plan of Treatment Health Maintenance Due Date Last Done Comments DISCUSS TOBACCO CESSATION (REFER TO SMARTSET #3291) 1965 O2 ASSESSMENT COMPLETED IN PAST YEAR [...] Directives occurred with: Not Discussed Care Teams Sustainability Executive Director Relationship Specialty Start Date End Date Ninfa Cruz DO [address] [place] [address] PCP - General Family Medicine 02/08/16 documented as of this encounter
--- OUTSIDE RECORDS SUMMARY | 2024-11-18 23:12 | External Medical Summary | Summary of Care ---
Author Name Unknown Organization [facility] Address [address] [facility] [place] [address] Phone [phone] Care Team Providers Care Pump Machine Operator Name Role Phone Val Persaud DO Primary Care Provider Reason for Visit * Reason Onset Date Comments Medication Refill 11/07/2024 Encounter Details Date Type Department Care Team (Late st Contact Info) Description 11/07/2024 Refill Family Practice [facility] [address] [place] [address] Val Persaud DO [address] [place] [address] Allergies Active Allergy Reactions Criticality Noted Date [...] as of this encounter (statuses as of 11/08/2024) Medications Simethicone 80 MG Oral Tablet Chewable (Gas Relief)Indication s:Gas Pain Take 1 Tablet by mouth every 6 hours as needed for Gas. 30 Tablet 5 04/28/20 24 Active Ipratropium-Albut mike 0.5-2.5 (3) MG/3ML Inhalation Solution (Duoneb)Indicatio ns:COPD, moderate ([facility]) Inhale 3 mL via nebulizer in the morning and 3 mL at noon and 3 mL in the evening and 3 mL before bedtime. 180 mL 1 06/13/20 24 Active Fluticasone-Salme terol 115-21 MCG/ACT Inhalation Aerosol (Advair HFA)Indications:C OPD, group B, by GOLD 2017 classification ([facility]),Intermitten t asthma with reliever use up to [...] morning. 100 Tablet 3 11/08/19 25 Active Vitamin B-12 1000 MCG Oral Tablet (Cyanocobalamin)I ndications:Vitami n Deficiency Prophylaxis Take 1 Tablet by mouth in the morning. 100 Tablet 3 09/27/19 25 025 Discontin ued(Refil l) documented as of this encounter (statuses as of 11/08/2024) Active Problems Problem Noted Date Diagnosed Date [...] very minimal noted on overnight PSG 2 [facility] Gastroesophageal reflux disease with esophagitis 03/14/2011 HTN, goal below 130/80 03/13/2011 Fibromyalgia 04/05/2010 Chronic nausea 04/02/2010 Overview (07/08/2017): ICD-10 update of inactive term Intermittent asthma with rel iever use up to twice per week without complication 01/04/2010 ANDRE (generalized anxiety disorder) 10/24/2009 Dyslipidemia 08/24/2009 Overview (08/24/2009): Per Lipid Taxonomy. Hypothyroidism 05/12/2009 documented as of this encounter (statuses as of 11/08/2024) Resolved Problems Problem Noted Date Diagnosed Date [...] as of this encounter (statuses as of 11/08/2024) Immunizations Name Administration Dates Next Due COVID-19, LNP-s, No Preserve , Lloyd-sucrose, Ages 12+ (Pfizer) 03/20/2022 H1N1 2009 Influenza, IM 11/09/2009 Pneumococcal Conjugate Vacci ne, 20-valent ([id number]) 02/04/2023 Pneumococcal Polysaccharide PPV23 (Pneumovax) 01/17/2009 Seasonal [...] Never 06/02/2023 How often do you attend zoroastrian or zoroastrian serv ices? Never 06/02/2023 Do you belong to any clubs o r organizations such as zoroastrian groups, unions, fraternal or athletic groups, or [...] Recorded PHQ Adult Total Score 0 02/04/2023 [facility] - Occupational Stress Questionnaire Answer Date [...] place to sleep or slept in a chcf (including now)? Yes 06/02/2023 Childcare Answer Date [...] Assessment Author Yes 06/03/2023 2:49 PM EDT Elad Peck, Commissary Superintendent * Do you have difficulty dressing or [...] encounter Miscellaneous Notes * Telephone Encounter - Alisa Graves CRNP - 11/08/2024 8:43 AM EST Signed Prescriptions: Disp Refills Vitamin B-12 1000 MCG Oral Tablet (Cyanoco*100 Ta*3 Sig: Take 1 Tablet by mouth in the morning.Authorizing Provider: VAL PERSAUD User: ALISA GRAVES * Telephone Encounter - Alisa Graves CRNP - 11/08/2024 8:43 AM EST Inboxologist Covering Provider RX REFILLED All replies or additional communication must be routed to the PCP * Telephone Encounter - Adriana Fenton LPN - 11/08/2024 8:34 AM ESTPending Prescriptions: Disp Refills Vitamin B-12 1000 MCG Oral Tablet (Cyanoco*100 Ta*3 Sig: Take 1 Tablet by mouth in the morning. * Telephone Encounter - Adriana Fenton LPN - 11/08/2024 8:33 AM EST Did you pend patient's preferred pharmacy and medication before forwarding?yes Pharmacy: [id number] Pending Prescriptions: Disp Refills Vitamin B-12 1000 MCG Oral Tablet (Cyanoc*100 Ta*3 Sig: Take 1 Tablet by mouth in the morning. Last Visit: 06/24/2023 (in office), 04/23/2022 (telemedicine) Next Visit: Visit date not found If no future appointments scheduled, and last appointment is greater than a year ago, please schedule patient for a follow-up appointment Last date the medication was ordered: 09/27/2024 Is this request for a controlled substance?No Urine Drug Screen: Results for orders placed [...] 12:29 PM HGBA1C 5.4 12/20/2019 01:23 PM * Telephone Encounter - Lashawn Anjana - 11/07/2024 7:17 PM ESTPending Prescriptions: Disp Refills Vitamin B-12 1000 MCG Oral Tablet (Cyanoco*100 Ta*3 Sig: Take 1Tablet by mouth in the morning. documented in this encounter Plan of Treatment Health Maintenance Due Date Last Done Comments DISCUSS TOBACCO CESSATION (REFER TO SMARTSET #9266) 1965 O2 ASSESSMENT COMPLETED IN PAST YEAR [...] 02/05/2028 HPV/Co-Test 02/05/2028 02/04/2023 Colonoscopy 06/22/2029 06/22/2019, 100 04/2019, 01/13/2019, Additional history exists Colorectal Cancer [...] Directives occurred with: Not Discussed Care Teams Pump Machine Operator Relationship Specialty Start Date End Date Val Persaud DO [address] [place] [address] PCP - General Family Medicine 02/08/16 documented as of this encounter
--- OUTSIDE RECORDS SUMMARY | 2024-11-18 23:12 | External Medical Summary | Summary of Care ---
Author Name Unknown Organization [facility] Address [address] [facility] [address] Phone [phone] Care Team Providers Care Child Specialist Name Role Phone Ninfa Cruz DO Primary Care Provider [phone] Reason for Visit * Reason Onset Date Comments Referral 11/04/2024 Encounter Details Date Type Department Care Team (Late st Contact Info) Description 11/04/2024 New Patient Triage ([facility]AIL[facility] USE ONLY) Hematology/Oncology [facility] [address] [facility] [place] [id number] Pat Rodriguez CRNP [address] [place] [address] Referral Allergies Active Allergy Reactions [...] as of this encounter (statuses as of 11/05/2024) Medications Fexofenadine HCl 180 MG Oral Tablet (GNP Allergy Relief) Take 1 Tablet by mouth daily as needed for Allergies. 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 28 Patch 1 3 11:13 AM EST 07/31/20 23 Active Nicotine Polacrilex 2 MG Mouth/Throat Gum (Nicorette) Chew one piece of gum every 1 to 2 hours for the first 6 weeks, then 1 every 2 to 4 hours for weeks 7 to 9, then 1 every 4 to 8 hours. 120 Each 1 4 5:24 PM EST 09/23/19 24 Active Nicotine Polacrilex 4 MG Mouth/Throat Gum (GNP Nicotine Polacrilex)Indicat ions:Tobacco use Chew one piece of gum every 1 to 2 hours for the first 6 weeks, then 1 every 2 to 4 hours for weeks 7 to 9, then 1 every 4 to 8 hours. 110 Each 4 10:41 AM EDT 02/10/20 24 Active Benzonatate 100 MG Oral Capsule (Tessalon Perlmarifer)Indications :Suspected COVID-19 virus infection,Dry cough Take 1 Capsule by mouth 3 times a day as needed for Cough. Do not cut, crush, or chew. 30 Capsule 4 1:12 PM EDT 03/01/20 24 Active Simethicone 80 MG Oral Tablet Chewable (Gas Relief)Indications :Gas Pain Take 1 Tablet by mouth every 6 hours as needed for Gas. 30 Tablet 5 04/28/20 24 Active Ferrous Sulfate 325 (65 Fe) MG Oral Tablet (FeroSul)Indicatio ns:Anemia Take 1 Tablet by mouth in the morning and 1 Tablet at noon and 1 Tablet in the evening. Take with meals. 90 Tablet 2 05/03/20 24 Active Phenazopyridine HCl 200 MG Oral Tablet (Pyridium)Indicati ons:Dysuria Take 1 Tablet by mouth 3 times a day as needed for Pain, Mild. After meals for pain with urination 20 Tablet 3 05/18/20 24 Active Nicotine 14 MG/24HR Transdermal Patch 24 Hour (Nicoderm CQ)Indications:Tob acco use disorder PLACE 1 PATCH OVER 24 HOURS TOPICALLY ON THE SKIN DAILY 28 Patch 06/09/20 24 Active Ipratropium-Albute rol 0.5-2.5 (3) MG/3ML Inhalation Solution (Duoneb)Indication s:COPD, moderate ([facility]) Inhale 3 mL via nebulizer in the morning and 3 mL at noon and 3 mL in the evening and 3 mL before bedtime. 180 mL 1 06/13/20 24 Active Fluticasone-Salmet mike 115-21 MCG/ACT Inhalation Aerosol (Advair HFA)Indications:CO PD, group B, by GOLD 2017 classification ([facility]),Intermittent asthma with reliever use up to twice per week without complication Inhale 2 Puffs by mouth in the morning and 2 Puffs before bedtime. 12 g 12 06/18/20 24 Active Polyethylene Glycol 3350 17 GM/SCOOP Oral Powder (MiraLax)Indicatio ns:Constipation, unspecified constipation type Take 17 g by mouth as needed for Constipation. Dissolve one heaping tablespoon in 8 ounces of water or juice. 850 g 1 06/24/20 24 Active Estradiol 0.1 MG/GM Vaginal Cream (Estrace)Indicatio ns:Menopause USE 1/4 OF APPLICATORFUL 2 TO 3 TIMES PER WEEK. 127.5 g 3 07/21/20 24 Active Albuterol Sulfate HFA 108 (90 Base) MCG/ACT Inhalation Aerosol Solution Inhale 2 Puffs by mouth every 6 hours as needed for Dyspnea. 54 g 07/22/20 24 Active Vitamin D3 25 MCG (1000 UT) Oral Tablet (Vitamin D3) Take 1 Tablet by mouth in the morning. 90 Tablet 1 07/23/20 24 Active Bismuth Subsalicylate 262 MG/15ML Oral [...] 5 1:49 PM EST 09/06/20 24 Active Bismuth Subsalicylate 262 MG/15ML Oral Suspension ([employer] Stomach Relief)Indications :Gastroesophageal reflux disease with esophagitis without hemorrhage Take 30 mL by mouth every 6 hours as needed for Nausea. 473 mL 1 09/09/20 24 Active Venlafaxine HCl ER 75 MG [...] for Anxiety. 30 Tablet 11/01/19 25 Active documented as of this encounter (statuses as of 11/05/2024) Active Problems Problem Noted Date Diagnosed Date Food insecurity 06/23/2023 Overview: Per [facility] Protocol Severe episode of recurrent major depressive disorder, without psychotic features 06/01/2023 PTSD (post-traumatic stress disorder) 06/01/2023 Cannabis abuse 06/01/2023 Iron deficiency anemia 03/25/2023 Substance abuse 12/31/2022 Overview (01/15/2023): UDS + meth 11/23/22 [facility], new onset of paranoia and confusion [...] noted on overnight PSG 2 [facility] Gastroesophageal reflux disease with esophagitis 03/14/2011 HTN, goal below 130/80 03/13/2011 Fibromyalgia 04/05/2010 Chronic nausea 04/02/2010 Overview (07/08/2017): ICD-10 update of inactive term Intermittent asthma with rel iever use up to twice per week without complication 01/04/2010 ANDRE (generalized anxiety disorder) 10/24/2009 Dyslipidemia 08/24/2009 Overview (08/24/2009): Per Lipid Taxonomy. Hypothyroidism 05/12/2009 documented as of this encounter (statuses as of 11/05/2024) Resolved Problems Problem Noted Date Diagnosed Date [...] as of this encounter (statuses as of 11/05/2024) Immunizations Name Administration Dates Next Due COVID-19, LNP-s, No Preserve , Lloyd-sucrose, Ages 12+ (Pfizer) 03/20/2022 H1N1 2009 Influenza, IM 11/09/2009 Pneumococcal Conjugate Vacci ne, 20-valent ([id number]) 02/04/2023 Pneumococcal Polysaccharide PPV23 (Pneumovax) 01/17/2009 Seasonal [...] Never 06/02/2023 How often do you attend protestant or synagogue serv ices? Never 06/02/2023 Do you belong to any clubs o r organizations such as protestant groups, unions, fraternal or athletic groups, or [...] Recorded PHQ Adult Total Score 0 02/04/2023 [facility] - Occupational Stress Questionnaire Answer Date [...] place to sleep or slept in a long term (including now)? Yes 06/02/2023 Childcare Answer Date [...] Assessment Author No 09/01/2019 1:35 PM EST [place], J denise M, RN * Are you blind or do you have serious difficulty seeing, even when wearing glasses? Answer Date of Assessment Author No 09/01/2019 1:35 PM Columba March RN * Does this person have serious difficulty walking or climbing stairs? Answer Date of Assessment Author Yes 06/03/2023 2:49 PM EDT Elda Peck, Breaker Layer * Do you have difficulty dressing or [...] Columba March RN documented in this encounter Progress Notes * Aubrie Seymour LPN - 11/05/2024 3:08 PM EST Discussed care plan with patient or proxy?: Yes, LM for patient to return call, return phone numberprovided. My G sent. Communicated with patient on Date (mm/dd/yyyy): 11/05/2024 at Time ([facility]): 03:09 PM Additional imaging needed: No Additional imaging orders pended: No Further labs recommended and ordered: Yes Bone Marrow biopsy recommended:No [facility] clinic review recommended: No * Aubrie Seymour LPN - 11/05/2024 8:45 AM EST Order received for Venofer Preemption plan built and routed to provider No prior authorization needed * Pat Rodriguez CRNP - 11/04/2024 1:35 PM EST Hematology [...] for referral?: AMY Enter order ID here: [id number] Specialty specific documentation: Hematology/Oncology NEW PATIENT - HEMATOLOGY/ONCOLOGY SPECIALTY TRIAGE Triage needed?: Yes Referring provider name: Dr. Ninfa Cruz Confirmation of diagnosis: Yes TRIAGE PLAN: Baseline/staging imaging complete: No Labs available: Yes Referral to other specialty recommended (ie. Surgery, outpatient infusion): No Additional triage comments: Please see MARTY, 11/03/2024, Dr. Cruz documented in this encounter Miscellaneous Notes * Addendum Note - Aubrie Seymour LPN - 11/05/2024 3:27 PM ESTAddended by: AUBRIE SEYMOUR on: 11/05/2024 03:27 PM Modules accepted: Orders * Addendum Note - Pat Rodriguez CRNP - 11/04/2024 1:55 PM ESTAddended by: PAT RODRIGUEZ on: 11/04/2024 01:55 PM Modules accepted: Orders documented in this encounter Plan of Treatment Scheduled Orders Name Type Priority Associated Diagnoses [...] Directives occurred with: Not Discussed Care Teams Child Specialist Relationship Specialty Start Date End Date Ninfa Cruz DO [address] [place] [address] PCP - General Family Medicine 02/08/16 documented as of this encounter
--- OUTSIDE RECORDS SUMMARY | 2024-11-18 23:12 | External Medical Summary | Summary of Care ---
Author Name Unknown Organization [facility] Address [address] [facility] [place] [address] Phone [phone] Care Team Providers Care Accounting/Finance Tutor Name Role Phone Ninfa Cruz DO Primary Care Provider Reason for Visit * Reason Onset Date Comments Medication Refill 11/07/2024 Encounter Details Date Type Department Care Team (Late st Contact Info) Description 11/07/2024 Refill Family Practice [facility] [address] [place] [address] Ninfa Cruz DO [address] [place] [address] Allergies Active Allergy Reactions Criticality Noted Date [...] 12/31/2022 Overview (01/15/2023): UDS + meth 11/23/22 [facility], new onset of paranoia and [...] very minimal noted on overnight PSG 2 [facility] Gastroesophageal reflux disease with esophagitis [...] IM 11/09/2009 Pneumococcal Conjugate Vacci ne, 20-valent ([id number]) 02/04/2023 Pneumococcal Polysaccharide PPV23 (Pneumovax) 01/17/2009 Seasonal [...] Never 06/02/2023 How often do you attend mormon or baptist serv ices? Never 06/02/2023 Do you belong to any clubs o r organizations such as mormon groups, unions, fraternal or athletic groups, or [...] Recorded PHQ Adult Total Score 0 02/04/2023 [facility] [place] of Occupat ional Health - Occupational Stress [...] place to sleep or slept in a penitentiary (including now)? Yes 06/02/2023 Childcare Answer Date [...] Yes 06/03/2023 2:49 PM EDT Elda Peck, Sports Medicine Coordinator * Do you have difficulty dressing or [...] Telephone Encounter - Anjana Hardin - 11/09/2024 5:31 AM ESTRefused Prescriptions: Disp Refills Bismuth Subsalicylate 262 MG/15ML Oral Chani*30 mL 5 Sig: Take 30mL by mouth every 4 hours as needed for Gas.Refused By: CARMELO HARDINeason for Refusal: Duplicate R equest documented in this encounter Plan of Treatment Upcoming Encounters Date Type Department Care Team (Late st Contact Info) Description 11/17/2024 12:00 PM EST Laboratory Laboratory [facility] [place] [address] [place], [place] [id number] Vikki [facility] [address] [place] [address] 11/18/2024 1:00 PM EST Office Visit Hematology/Oncology [facility] [place] [address] [place] [phone] Michaela Javier CRNP [address] [place] [address] 11/18/2024 2:00 PM EST Hem/Onc Treatment Hematology/Oncology Treatment, [place] [address] [place], [place] [address] Vikki, Chair 4 [facility] [address] [place], [place] [address] Health Maintenance Due Date Last Done Comments DISCUSS TOBACCO CESSATION (REFER TO SMARTSET #6114) 1965 O2 ASSESSMENT COMPLETED IN PAST YEAR [...] Directives occurred with: Not Discussed Care Teams Accounting/Finance Tutor Relationship Specialty Start Date End Date Ninfa Cruz DO [address] [place] [address] PCP - General Family Medicine 02/08/16 documented as of this encounter
--- OUTSIDE RECORDS SUMMARY | 2024-11-18 23:13 | External Medical Summary | Summary of Care ---
Author Name Unknown Organization [facility] Address [address] [facility] [place] [address] Phone [phone] Care Team Providers Care Concrete Plant Laborer Name Role Phone Val Persaud DO Primary Care Provider Reason for Visit * Reason Onset Date Comments Medication Refill 10/30/2024 Encounter Details Date Type Department Care Team (Late st Contact Info) Description 10/30/2024 Refill Family Practice [facility] [address] [place] [address] Val Persaud DO [address] [place] [address] Allergies Active Allergy Reactions Criticality Noted Date [...] as of this encounter (statuses as of 11/01/2024) Medications Fexofenadine HCl 180 MG Oral Tablet [...] Active Benzonatate 100 MG Oral Capsule (Tessalon Perles)Indication s:Suspected COVID-19 virus infection,Dry cough Take 1 [...] Active Phenazopyridine HCl 200 MG Oral Tablet (Pyridium)Indicat ions:Dysuria Take 1 Tablet by mouth 3 times a day as needed for Pain, Mild. After meals for pain with urination 20 Tablet 3 05/18/20 24 Active Nicotine 14 MG/24HR Transdermal Patch 24 Hour (Nicoderm CQ)Indications:To bacco use disorder PLACE 1 PATCH OVER 24 HOURS TOPICALLY ON THE SKIN DAILY 28 Patch 06/09/20 24 Active Ipratropium-Albut mike 0.5-2.5 (3) MG/3ML Inhalation Solution (Duoneb)Indicatio ns:COPD, moderate (HCC) Inhale 3 mL via nebulizer in the morning and 3 mL at noon and 3 mL in the evening and 3 mL before bedtime. 180 mL 1 06/13/20 24 Active Fluticasone-Salme terol 115-21 MCG/ACT Inhalation Aerosol (Advair HFA)Indications:C OPD, group B, by GOLD 2017 classification (HCC),Intermitten t asthma with reliever use up to [...] morning. 100 Tablet 3 09/27/19 25 Active Levothyroxine Sodium 75 MCG Oral Tablet (Levoxyl)Indicati ons:Hypothyroidis m Take 1 Tablet by mouth daily first thing in the morning. 90 Tablet 3 09/30/19 25 Active Prochlorperazine Maleate 10 MG Oral [...] Muscle spasms. 30 Tablet 10/18/19 25 Active Bismuth Subsalicylate 262 MG/15ML Oral [...] for Anxiety. 30 Tablet 11/01/19 25 Active QUEtiapine Fumarate 25 MG Oral Tablet (SEROquel)Indicat ions:Anxiety Take 1 Tablet by mouth every 8 hours as needed for Anxiety. 30 Tablet 10/11/19 25 025 Discontin ued(Refil l) documented as of this encounter (statuses as of 11/01/2024) Active Problems Problem Noted Date Diagnosed Date Food insecurity 06/23/2023 Overview: Per [facility] Protocol Severe episode of recurrent major depressive disorder, without psychotic features 06/01/2023 PTSD (post-traumatic stress disorder) 06/01/2023 Cannabis abuse 06/01/2023 Iron deficiency anemia 03/25/2023 Substance abuse 12/31/2022 Overview (01/15/2023): UDS + meth 11/23/22 [facility], new onset of paranoia and confusion UDS [...] noted on overnight PSG 2 [facility] Gastroesophageal reflux disease with esophagitis 03/14/2011 HTN, goal below 130/80 03/13/2011 Fibromyalgia 04/05/2010 Chronic nausea 04/02/2010 Overview (07/08/2017): ICD-10 update of inactive term Intermittent asthma with rel iever use up to twice per week without complication 01/04/2010 ANDRE (generalized anxiety disorder) 10/24/2009 Dyslipidemia 08/24/2009 Overview (08/24/2009): Per Lipid Taxonomy. Hypothyroidism 05/12/2009 documented as of this encounter (statuses as of 11/01/2024) Resolved Problems Problem Noted Date Diagnosed Date [...] as of this encounter (statuses as of 11/01/2024) Immunizations Name Administration Dates Next Due COVID-19, LNP-s, No Preserve , Lloyd-sucrose, Ages 12+ (Pfizer) 03/20/2022 H1N1 2009 Influenza, IM 11/09/2009 Pneumococcal Conjugate Vacci ne, 20-valent ([id number]) 02/04/2023 Pneumococcal Polysaccharide PPV23 (Pneumovax) 01/17/2009 Seasonal [...] Never 06/02/2023 How often do you attend amish or orthodoxy serv ices? Never 06/02/2023 Do you belong to any clubs o r organizations such as amish groups, unions, fraternal or athletic groups, or [...] Recorded PHQ Adult Total Score 0 02/04/2023 [facility] of Occupat ional Health - Occupational Stress [...] place to sleep or slept in a fdc (including now)? Yes 06/02/2023 Childcare Answer Date [...] No 12/22/2023 Does the household have a [facility] source of income? (Household - for ages [...] Yes 06/03/2023 2:49 PM EDT Elda Peck, Fire Captain * Do you have difficulty dressing or [...] Telephone Encounter - Val Persaud DO - 11/01/2024 9:38 AM ESTSigned Prescriptions: Disp Refills QUEtiapine Fumarate 25 MG Oral Tablet (SER*30 Tab*0 Sig: Take 1 Tablet by mouth every 8 hours as needed for Anxiety. Authorizing Provider: VAL PERSAUD * Telephone Encounter - Nicole Almanza LPN - 10/30/2024 1:40 PM ESTPending Prescriptions: Disp Refills QUEtiapine Fumarate 25 MG Oral Tablet (SER*30 Tab*0 Sig: Take 1 Tablet by mouth every 8 hours as needed for Anxiety. * Telephone Encounter - Nicole Almanza LPN - 10/30/2024 1:39 PM EST Did you pend patient's preferred pharmacy and medication before forwarding?yes Pharmacy: [id number] Pending Prescriptions: Disp Refills QUEtiapine Fumarate 25 MG Oral Tablet (SE*30 Tab*0 Sig: Take 1 Tablet by mouth every 8 hours as needed for Anxiety. Last Visit: 06/24/2023 (in office), 04/23/2022 (telemedicine) Next Visit: Visit date not found If no future appointments scheduled, and last appointment is greater than a year ago, please schedule patient for a follow-up appointment Last date the medication was ordered: 10/11/24 Is this request for a controlled substance?No [...] 12/20/2019 01:23 PM * Telephone Encounter - Anjana [place] - 10/30/2024 1:33 PM ESTPending Prescriptions: Disp Refills QUEtiapine Fumarate 25 MG Oral Tablet (SER*30 Tab*0 Sig: Take 1Tablet by mouth every 8 hours as needed for Anxiety. documented in this encounter Plan of Treatment Health Maintenance Due Date Last Done Comments DISCUSS TOBACCO CESSATION (REFER TO SMARTSET #8159) 1965 O2 ASSESSMENT COMPLETED IN PAST YEAR [...] Directives occurred with: Not Discussed Care Teams Concrete Plant Laborer Relationship Specialty Start Date End Date Val Persaud DO [address] [place] [address] PCP - General Family Medicine 02/08/16 documented as of this encounter
--- OUTSIDE RECORDS SUMMARY | 2024-11-18 23:13 | External Medical Summary | Summary of Care ---
Author Name Unknown Organization [facility] [address] [facility] [address] Phone [phone] Care Team Providers Care Wharf Tender Helper Name Role Phone Ninfa Cruz DO Primary Care Provider [phone] Reason for Visit * Reason Onset Date Comments Referral 11/04/2024 Encounter Details Date Type Department Care Team (Late st Contact Info) Description 11/04/2024 New Patient Triage (HAND SUTURE WINDER USE ONLY) Hematology/Oncology [facility] [address] [place] [phone] Pat Rodriguez CRNP [address] [place] [address] Referral Allergies Active Allergy Reactions [...] as of this encounter (statuses as of 11/04/2024) Medications Fexofenadine HCl 180 MG Oral Tablet (GNP Allergy Relief) Take 1 Tablet by mouth daily as needed for Allergies. 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 180 mL 1 06/13/20 24 Active Fluticasone-Salmet mike 115-21 MCG/ACT Inhalation Aerosol (Advair HFA)Indications:CO PD, group B, by GOLD 2017 classification ([facility]),Intermittent asthma with reliever use [...] as of this encounter (statuses as of 11/04/2024) Active Problems Problem Noted Date Diagnosed Date Food insecurity 06/23/2023 Overview: Per [facility] Protocol Severe episode of recurrent major depressive disorder, without psychotic features 06/01/2023 PTSD (post-traumatic stress disorder) 06/01/2023 Cannabis abuse 06/01/2023 Iron deficiency anemia 03/25/2023 Substance abuse 12/31/2022 Overview (01/15/2023): UDS + meth 11/23/22 [facility], new onset of paranoia and [...] very minimal noted on overnight PSG [address] [facility] Gastroesophageal reflux disease with esophagitis 03/14/2011 HTN, goal below 130/80 03/13/2011 Fibromyalgia 04/05/2010 Chronic nausea 04/02/2010 Overview (07/08/2017): ICD-10 update of inactive term Intermittent asthma with rel iever use up to twice per week without complication 01/04/2010 ANDRE (generalized anxiety disorder) 10/24/2009 Dyslipidemia 08/24/2009 Overview (08/24/2009): Per Lipid Taxonomy. Hypothyroidism 05/12/2009 documented as of this encounter (statuses as of 11/04/2024) Resolved Problems Problem Noted Date Diagnosed Date [...] as of this encounter (statuses as of 11/04/2024) Immunizations Name Administration Dates Next Due COVID-19, LNP-s, No Preserve , Lloyd-sucrose, Ages 12+ (Pfizer) 03/20/2022 H1N1 2009 Influenza, IM 11/09/2009 Pneumococcal Conjugate Vacci ne, 20-valent ([id number]) 02/04/2023 Pneumococcal Polysaccharide PPV23 (Pneumovax) 01/17/2009 Seasonal [...] often do you attend latter day or episcopalian serv ices? Never 06/02/2023 Do you belong [...] Recorded PHQ Adult Total Score 0 02/04/2023 [facility] - Occupational Stress Questionnaire Answer Date [...] Yes 06/03/2023 2:49 PM EDT Elda Peck, Drain Layer * Do you have difficulty dressing [...] documented in this encounter Progress Notes * Pat Rodriguez CRNP - 11/04/2024 1:35 [...] seen hematology? No. CANDELARIO Mccartney Hematology * Nette Seymour LPN - 11/04/2024 9:39 AM EST Images from the original note were not included. New Patient Triage What is the diagnosis/reason for referral?: AMY Enter order ID here: [id number] Specialty specific documentation: Hematology/Oncology NEW PATIENT - HEMATOLOGY/ONCOLOGY SPECIALTY TRIAGE Triage needed?: Yes Referring provider name: Dr. Ninfa Cruz Confirmation of diagnosis: Yes TRIAGE PLAN: Baseline/staging imaging complete: No Labs available: Yes Referral to other specialty recommended (ie. Surgery, outpatient infusion): No Additional triage comments: Please see TE, 11/03/2024, Dr. Cruz documented in this encounter Miscellaneous Notes * Addendum Note - Pat Rodriguez CRNP - 11/04/2024 1:55 PM ESTAddended by: PAT RODRIGUEZ on: 11/04/2024 01:55 PM Modules accepted: Orders documented in this encounter Plan of Treatment Health Maintenance Due Date Last Done Comments DISCUSS TOBACCO CESSATION (REFER TO SMARTSET #6607) 1965 O2 ASSESSMENT COMPLETED IN PAST YEAR [...] anemia, unspecified iron deficiency anemia type- Primary documented in this encounter Advance Directives * [...] Directives occurred with: Not Discussed Care Teams Wharf Tender Helper Relationship Specialty Start Date End Date Ninfa Cruz DO [address] [place] [address] PCP - General Family Medicine 02/08/16 documented as of this encounter
--- OUTSIDE RECORDS SUMMARY | 2024-11-18 23:13 | External Medical Summary | Summary of Care ---
Author Name Unknown Organization [facility] Address [address] [facility] [place] [address] Phone [phone] Care Team Providers Care Topographical Drafter Name Role Phone Ninfa Cruz DO Primary Care Provider Reason for Visit * Reason Onset Date Comments Medication Refill 11/01/2024 Encounter Details Date Type Department Care Team (Late st Contact Info) Description 11/01/2024 Refill Family Practice [facility] [address] [place] [address] Ninfa Cruz DO [address] [place] [address] Gastroesophageal reflux disease with esophagitis without hemorrhage [...] as of this encounter (statuses as of 11/02/2024) Medications Fexofenadine HCl 180 MG Oral Tablet (GNP Allergy Relief) Take 1 Tablet by mouth daily as needed for Allergies. 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 180 mL 1 06/13/20 24 Active Fluticasone-Salmet mike 115-21 MCG/ACT Inhalation Aerosol (Advair HFA)Indications:CO PD, group B, by GOLD 2017 classification ([facility]),Intermittent asthma with reliever use up [...] as of this encounter (statuses as of 11/02/2024) Active Problems Problem Noted Date Diagnosed Date Food insecurity 06/23/2023 Overview: Per [facility] Protocol Severe episode of recurrent major depressive disorder, without psychotic features 06/01/2023 PTSD (post-traumatic stress disorder) 06/01/2023 Cannabis abuse 06/01/2023 Iron deficiency anemia 03/25/2023 Substance abuse 12/31/2022 Overview (01/15/2023): UDS + meth 11/23/22 [facility], new onset of paranoia and confusion [...] as of this encounter (statuses as of 11/02/2024) Resolved Problems Problem Noted Date Diagnosed Date [...] as of this encounter (statuses as of 11/02/2024) Immunizations Name Administration Dates Next Due COVID-19, LNP-s, No Preserve , Lloyd-sucrose, Ages 12+ (Pfizer) 03/20/2022 H1N1 2009 Influenza, IM 11/09/2009 Pneumococcal Conjugate Vacci ne, 20-valent ([id number]) 02/04/2023 Pneumococcal Polysaccharide PPV23 (Pneumovax) 01/17/2009 Seasonal [...] often do you attend latter day or jainism serv ices? Never 06/02/2023 Do you belong [...] Recorded PHQ Adult Total Score 0 02/04/2023 [facility] - Occupational Stress Questionnaire Answer [...] Yes 06/03/2023 2:49 PM EDT Elda Peck, Leather Tanner * Do you have difficulty dressing or [...] encounter Miscellaneous Notes * Telephone Encounter - Julio Parker RPh - 11/02/2024 1:00 PM EST Refused Prescriptions: Disp Refills Dexlansoprazole 60 MG Oral Capsule Delayed*90 Cap*1 Sig: Take 1Capsule by mouth in the morning.Refused By: JULIO PARKER for Refusal: Too soon------ documented in this encounter Plan of Treatment Health Maintenance Due Date Last Done Comments DISCUSS TOBACCO CESSATION (REFER TO SMARTSET #0971) 1965 O2 ASSESSMENT COMPLETED IN PAST YEAR [...] Directives occurred with: Not Discussed Care Teams Topographical Drafter Relationship Specialty Start Date End Date Ninfa Cruz DO [address] [facility] [place] [address] PCP - General Family Medicine 02/08/16 documented as of this encounter
--- OUTSIDE RECORDS SUMMARY | 2024-11-18 23:13 | External Medical Summary | Summary of Care ---
Author Name Unknown Organization [facility] Address [address] [facility] [address] Phone [phone] Care Team Providers Care Washhouse Worker Name Role Phone Ninfa Cruz DO Primary Care Provider [phone] Reason for Visit * Reason Onset Date Comments Referral 11/04/2024 Encounter Details Date Type Department Care Team (Late st Contact Info) Description 11/04/2024 New Patient Triage (CUSTODY ASSISTANT USE ONLY) Hematology/Oncology [facility] [address] [place] [phone] Pat Rodriguez CRNP [address] [place] [address] Referral Allergies Active Allergy Reactions [...] 21 MG/24HR Transdermal Patch 24 Hour (Nicoderm CQ)Indications: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 180 mL 1 06/13/20 24 Active Fluticasone-Salmet mike 115-21 MCG/ACT Inhalation Aerosol (Advair HFA)Indications:CO PD, group B, by GOLD 2017 classification ([facility]),Intermittent asthma with reliever use up to twice [...] Diagnosed Date Food insecurity 06/23/2023 Overview: Per [facility] Protocol Severe episode of recurrent major depressive disorder, without psychotic features 06/01/2023 PTSD (post-traumatic stress disorder) 06/01/2023 Cannabis abuse 06/01/2023 Iron deficiency anemia 03/25/2023 Substance abuse 12/31/2022 Overview (01/15/2023): UDS + meth 11/23/22 [facility], new onset of paranoia and confusion UDS [...] minimal noted on overnight PSG [facility] Gastroesophageal reflux disease with [...] IM 11/09/2009 Pneumococcal Conjugate Vacci ne, 20-valent ([id number]) 02/04/2023 Pneumococcal Polysaccharide PPV23 (Pneumovax) 01/17/2009 Seasonal [...] How often do you attend zoroastrian or cheondoism serv ices? Never 06/02/2023 Do you belong [...] Recorded PHQ Adult Total Score 0 02/04/2023 [facility] - Occupational Stress Questionnaire Answer Date [...] place to sleep or slept in a group home (including now)? Yes 06/02/2023 Childcare Answer [...] Yes 06/03/2023 2:49 PM EDT Elda Peck, Animal Nutrition Teacher * Do you have difficulty dressing or [...] documented in this encounter Progress Notes * Nette Seymour LPN - 11/05/2024 8:45 AM EST Order received for Venofer [place] plan built and routed to provider No [...] for referral?: AMY Enter order ID here: [id number] Specialty specific documentation: Hematology/Oncology NEW PATIENT - [...] Directives occurred with: Not Discussed Care Teams Washhouse Worker Relationship Specialty Start Date End Date Ninfa Cruz DO [address] [place] [address] PCP - General Family Medicine 02/08/16 documented as of this encounter
--- OUTSIDE RECORDS SUMMARY | 2024-11-18 23:13 | External Medical Summary | Summary of Care ---
Author Name Unknown Organization [facility] Address [address] [facility] [facility] [address] Phone [phone] Care Team Providers Care Auxiliary Engineer Name Role Phone Ninfa Cruz DO Primary Care Provider [phone] Reason for Visit * Reason Onset Date Comments Referral 11/04/2024 Encounter Details Date Type Department Care Team (Late st Contact Info) Description 11/04/2024 New Patient Triage (BOILER SETTER USE ONLY) Hematology/Oncology [facility] [address] [place] [id number] Betsy Rodriguez CRNP [address] [place] [address] Referral Allergies Active Allergy Reactions [...] 21 MG/24HR Transdermal Patch 24 Hour (Nicoderm CQ)Indications: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 180 mL 1 06/13/20 24 Active Fluticasone-Salmet mike 115-21 MCG/ACT Inhalation Aerosol (Advair HFA)Indications:CO PD, group B, by GOLD 2017 classification ([facility]),Intermittent asthma with reliever use up to [...] Diagnosed Date Food insecurity 06/23/2023 Overview: Per [facility] Protocol Severe episode of recurrent major depressive disorder, without psychotic features 06/01/2023 PTSD (post-traumatic stress disorder) 06/01/2023 Cannabis abuse 06/01/2023 Iron deficiency anemia 03/25/2023 Substance abuse 12/31/2022 Overview (01/15/2023): UDS + meth 11/23/22 [facility], new onset of paranoia [...] very minimal noted on overnight PSG 2 [facility] Gastroesophageal reflux disease with esophagitis [...] IM 11/09/2009 Pneumococcal Conjugate Vacci ne, 20-valent ([id number]) 02/04/2023 Pneumococcal Polysaccharide PPV23 (Pneumovax) 01/17/2009 Seasonal [...] Never 06/02/2023 How often do you attend adventist or jewish serv ices? Never 06/02/2023 Do you belong to any clubs o r organizations such as adventist groups, unions, fraternal or athletic groups, or [...] Recorded PHQ Adult Total Score 0 02/04/2023 [facility] - Occupational Stress Questionnaire Answer Date Recorded [...] 06/03/2023 2:49 PM EDT Elda Peck, Leather Coater * Do you have difficulty dressing or [...] Progress Notes * Nette Seymour LPN - 11/04/2024 9:39 AM EST Images from the original note were not included. New Patient Triage What is the diagnosis/reason for referral?: AMY Enter order ID here: [id number] Specialty specific documentation: Hematology/Oncology NEW PATIENT - HEMATOLOGY/ONCOLOGY SPECIALTY TRIAGE Triage needed?: Yes Referring provider name: Dr. Ninfa Cruz Confirmation of diagnosis: Yes TRIAGE PLAN: Baseline/staging imaging complete: No Labs available: Yes Referral to other specialty recommended (ie. Surgery, outpatient infusion): No Additional triage comments: Please see TE, 11/03/2024Dr. Cruz documented in this encounter Plan of Treatment Upcoming Encounters Date Type Department Care Team (Late st Contact Info) Description 11/04/2024 2:10 PM EST Laboratory [facility] [address] [place] [id number] [place], [facility] [address] [place] [address] Health Maintenance Due Date Last Done Comments DISCUSS TOBACCO CESSATION (REFER TO SMARTSET #4167) 1965 O2 ASSESSMENT COMPLETED IN PAST YEAR [...] Directives occurred with: Not Discussed Care Teams Auxiliary Engineer Relationship Specialty Start Date End Date Ninfa Cruz DO [address] [place] [address] PCP - General Family Medicine 02/08/16 documented as of this encounter
--- OUTSIDE RECORDS SUMMARY | 2024-11-18 23:13 | External Medical Summary | Summary of Care ---
Author Name Unknown Organization [facility] Address [address] [facility] [place] [address] Phone [phone] Care Team Providers Care Payroll Accountant Name Role Phone Ninfa Cruz DO Primary Care Provider Reason for Visit * Reason Onset Date Comments Medication Refill 10/30/2024 Encounter Details Date Type Department Care Team (Late st Contact Info) Description 10/30/2024 Refill Family Practice [facility] [address] [place] [address] Ninfa Cruz DO [address] [place] [address] Gastroesophageal reflux disease with esophagitis without hemorrhage [...] 21 MG/24HR Transdermal Patch 24 Hour (Nicoderm CQ)Indications: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 180 mL 1 06/13/20 24 Active Fluticasone-Salmet mike 115-21 MCG/ACT Inhalation Aerosol (Advair HFA)Indications:CO PD, group B, by GOLD 2017 classification ([facility]),Intermittent asthma with reliever use up to [...] not cut, crush or chew. 90 Capsule 09/24/19 25 Active Vitamin B-12 1000 MCG [...] necessary. 180 Capsule 1 10/06/19 25 Active QUEtiapine Fumarate 25 MG Oral Tablet (SEROquel)Indicati ons:Anxiety Take 1 Tablet by mouth every 8 hours as needed for Anxiety. 30 Tablet 10/11/19 25 Active Dicyclomine HCl 10 MG Oral [...] morning. 90 Capsule 1 10/28/19 25 Active documented as of this encounter (statuses as of 11/01/2024) Active Problems Problem Noted Date Diagnosed Date Food insecurity 06/23/2023 Overview: Per [facility] Protocol Severe episode of recurrent major depressive disorder, without psychotic features 06/01/2023 PTSD (post-traumatic stress disorder) 06/01/2023 Cannabis abuse 06/01/2023 Iron deficiency anemia 03/25/2023 Substance abuse 12/31/2022 Overview (01/15/2023): UDS + meth 11/23/22 [facility], new onset of paranoia and confusion UDS [...] on overnight PSG 2 [facility] Gastroesophageal reflux disease with esophagitis 03/14/2011 [...] IM 11/09/2009 Pneumococcal Conjugate Vacci ne, 20-valent ([id number]) 02/04/2023 Pneumococcal Polysaccharide PPV23 (Pneumovax) 01/17/2009 Seasonal [...] Never 06/02/2023 How often do you attend jain or evangelical serv ices? Never 06/02/2023 Do you belong to any clubs o r organizations such as jain groups, unions, fraternal or athletic groups, or [...] Recorded PHQ Adult Total Score 0 02/04/2023 [facility] [place] of Occupat ional Health - Occupational Stress [...] place to sleep or slept in a halfway (including now)? Yes 06/02/2023 Childcare Answer Date [...] Yes 06/03/2023 2:49 PM EDT Elda Peck, Chief Design Engineer * Do you have difficulty dressing or [...] encounter Miscellaneous Notes * Telephone Encounter - Nicky Boone RPh - 11/01/2024 6:43 AM EST Refused Prescriptions: Disp Refills Dexlansoprazole 60 MG Oral Capsule Delayed*90 Cap*1 Sig: Take 1Capsule by mouth in the morning.Refused By: NICKY BOONE for Refusal: Duplicate Reques t Electronically signed by Nicky Boone [facility] at 11/01/2024 6:43 AM EST documented in this encounter Plan of Treatment Health Maintenance Due Date Last Done Comments DISCUSS TOBACCO CESSATION (REFER TO SMARTSET #2206) 1965 O2 ASSESSMENT COMPLETED IN PAST YEAR [...] Directives occurred with: Not Discussed Care Teams Payroll Accountant Relationship Specialty Start Date End Date Ninfa Cruz DO [address] [place] [address] PCP - General Family Medicine 02/08/16 documented as of this encounter
--- OUTSIDE RECORDS SUMMARY | 2024-11-18 23:13 | External Medical Summary | Summary of Care ---
Author Name Unknown Organization [facility] Address [address] [facility] [place] [address] Phone [phone] Care Team Providers Care Canine Deputy Name Role Phone Ninfa Cruz DO Primary Care Provider Reason for Visit * Reason Comments Medication Refill Encounter Details Date Type Department Care Team (Late st Contact Info) Description 11/01/[address] 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 180 mL 1 06/13/20 24 Active Fluticasone-Salmet mike 115-21 MCG/ACT Inhalation Aerosol (Advair HFA)Indications:CO PD, group B, by GOLD 2017 classification ([facility]),Intermittent asthma with reliever use [...] Diagnosed Date Food insecurity 06/23/2023 Overview: Per [facility] Protocol Severe episode of recurrent major depressive disorder, without psychotic features 06/01/2023 PTSD (post-traumatic stress disorder) 06/01/2023 Cannabis abuse 06/01/2023 Iron deficiency anemia 03/25/2023 Substance abuse 12/31/2022 Overview (01/15/2023): UDS + meth 11/23/22 [facility], new onset of paranoia [...] very minimal noted on overnight PSG 2 [facility] Gastroesophageal reflux disease with esophagitis 03/14/2011 [...] IM 11/09/2009 Pneumococcal Conjugate Vacci ne, 20-valent ([id number]) 02/04/2023 Pneumococcal Polysaccharide PPV23 (Pneumovax) 01/17/2009 Seasonal [...] Never 06/02/2023 How often do you attend christian or advent serv ices? Never 06/02/2023 Do you belong to any clubs o r organizations such as christian groups, unions, fraternal or athletic groups, or [...] 02/04/2023 [facility] - Occupational Stress Questionnaire Answer [...] Yes 06/03/2023 2:49 PM EDT Elda Peck, Air Quality Instrument Specialist * Do you have difficulty dressing [...] encounter Miscellaneous Notes * Telephone Encounter - Charlene Ojeda barbara - 11/02/2024 10:11 AM EST No prescriptions requested or ordered in this encounter documented in this encounter Plan of Treatment Health Maintenance Due Date Last Done Comments DISCUSS TOBACCO CESSATION (REFER TO SMARTSET #5654) 1965 O2 ASSESSMENT COMPLETED IN PAST YEAR FOR COPD 1981 Cologuard 2008 Sigmoidoscopy 2008 Fecal Occult Blood Test 12/05/2019 12/04/2018 Mammogram 07/04/2021 07/04/2020, 0509/2017, 08/27/2016, Additional history exists COVID-19 Vaccine (2 [...] as of this encounter Visit Diagnoses Diagnosis Moderate episode of recurrent major depressive disorder (HCC) documented in this encounter Advance Directives * [...] Directives occurred with: Not Discussed Care Teams Canine Deputy Relationship Specialty Start Date End Date Ninfa Cruz DO [address] [place] [address] PCP - General Family Medicine 02/08/16 documented as of this encounter
--- OUTSIDE RECORDS SUMMARY | 2024-11-18 23:14 | External Medical Summary ---
Author Name Unknown Address Unknown Organization K01:[facility] [address] [place] [address] Laboratory Report Ordering Provider Test Date Status CORI NEAL 10/27/2024 10:29:11 Final Observation Date Value Abnormality Reference (Units ) Status Ferritin 10/27/2024 10:29:11 15 13-150 (ng /mL) Final Postmenopausal women have hi gher ferritin levels than pre-menopausal women. The above reference interval is based on pre-menopausal women. Performing Location LAB[facility]ATORY [facility] - [address] [place] [address]
--- OUTSIDE RECORDS SUMMARY | 2024-11-18 23:14 | External Medical Summary | Summary of Care ---
Author Name Unknown Organization [facility] Address [address] [facility] [place] [address] Phone [phone] Care Team Providers Care Day Habilitation Specialist Name Role Phone Ninfa Cruz DO Primary Care Provider [phone]- [phone] Reason for Visit * Reason Onset Date Comments Medication Refill 10/26/2024 Encounter Details Date Type Department Care Team (Late st Contact Info) Description 10/26/2024 Refill Family Practice [facility] [address] [place] [address] Ninfa Cruz DO [address] [place] [address] Gastroesophageal reflux disease with esophagitis without hemorrhage [...] as of this encounter (statuses as of 10/27/2024) Medications Fexofenadine HCl 180 MG Oral Tablet (GNP Allergy Relief) Take 1 Tablet by mouth daily as needed for Allergies. 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 180 mL 1 06/13/20 24 Active Fluticasone-Salmet mike 115-21 MCG/ACT Inhalation Aerosol (Advair HFA)Indications:CO PD, group B, by GOLD 2017 classification ([facility]),Intermittent asthma with reliever use up to [...] morning. 30 Tablet 2 10/10/19 25 Active Dexlansoprazole 60 MG Oral Capsule Delayed Release (Dexilant)Indicati ons:Gastroesophage al reflux disease with esophagitis without hemorrhage Take 1 Capsule by mouth in the morning. 90 Capsule 1 10/14/19 25 Active Methocarbamol 500 MG Oral Tablet [...] UPSET). 473 mL 1 10/25/19 25 Active documented as of this encounter (statuses as of 10/27/2024) Active Problems Problem Noted Date Diagnosed Date Food insecurity 06/23/2023 Overview: Per [facility] Protocol Severe episode of recurrent major depressive disorder, without psychotic features 06/01/2023 PTSD (post-traumatic stress disorder) 06/01/2023 Cannabis abuse 06/01/2023 Iron deficiency anemia 03/25/2023 Substance abuse 12/31/2022 Overview (01/15/2023): UDS + meth 11/23/22 [facility], new onset of paranoia and confusion UDS [...] minimal noted on overnight PSG 2 [facility] Gastroesophageal reflux disease with esophagitis 03/14/2011 HTN, goal below 130/80 03/13/2011 Fibromyalgia 04/05/2010 Chronic nausea 04/02/2010 Overview (07/08/2017): ICD-10 update of inactive term Intermittent asthma with rel iever use up to twice per week without complication 01/04/2010 ANDRE (generalized anxiety disorder) 10/24/2009 Dyslipidemia 08/24/2009 Overview (08/24/2009): Per Lipid Taxonomy. Hypothyroidism 05/12/2009 documented as of this encounter (statuses as of 10/27/2024) Resolved Problems Problem Noted Date Diagnosed Date [...] as of this encounter (statuses as of 10/27/2024) Immunizations Name Administration Dates Next Due COVID-19, LNP-s, No Preserve , Lloyd-sucrose, Ages 12+ (Pfizer) 03/20/2022 H1N1 2009 Influenza, IM 11/09/2009 Pneumococcal Conjugate Vacci ne, 20-valent ([id number]) 02/04/2023 Pneumococcal Polysaccharide PPV23 (Pneumovax) 01/17/2009 Seasonal [...] How often do you attend congregation or hinduism serv ices? Never 06/02/2023 Do you belong [...] Recorded PHQ Adult Total Score 0 02/04/2023 [facility] [place] of Occupat ional Health - Occupational Stress [...] Yes 06/03/2023 2:49 PM EDT Elda Peck, Orange Grower * Do you have difficulty dressing or [...] Telephone Encounter - Nicky Boone RPh - 10/27/2024 5:36 AM EST Refused Prescriptions: Disp Refills Bismuth Subsalicylate 262 MG/15ML Oral Chani*473 mL 1 Sig: TAKE 30 ML BY MOUTH EVERY 6 HOURS NEEDED FOR NAUSEA OR OTHER (STOMACH UPSET).Refused By: NICKY BOONE for Refusal: Duplicate Request --------- documented in this encounter Plan of Treatment Upcoming Encounters Date Type Department Care Team (Late st Contact Info) Description 11/10/2024 5:00 PM EST Office Visit Family [address] [place] [address] Ninfa Cruz, DO [address] [place] [address] Health Maintenance Due Date Last Done Comments DISCUSS TOBACCO CESSATION (REFER TO SMARTSET #5168) 1965 O2 ASSESSMENT COMPLETED IN PAST YEAR FOR COPD 1981 Cologuard 2008 Sigmoidoscopy 2008 Fecal Occult Blood Test 12/05/2019 12/04/2018 Mammogram 07/04/2021 07/04/2020, 01/15, 08/27/2016, Additional history exists COVID-19 Vaccine (2 - Pfizer risk series) 04/10/2022 03/20/2022 Depression Monitoring 02/05/2024 02/04/2023 GFR 06/01/2024 06/01/2023, 01/14, 01/20/2023, Additional history exists Albumin/Creatinine Ratio 01/03/2025 01/03/2022 TSH 07/23/2025 07/23/2024, 05/17, 02/04/2023, Additional history exists Pap Smear 02/04/2026 02/04/2023, 10/17, 05/08/2012, Additional history exists Cervical Cancer Screening 02/05/2028 HPV/Co-Test 02/05/2028 02/04/2023 Lipid Panel 06/03/2028 06/03/2023, 03/0 05/2023, 02/16/2022, Additional history exists Colonoscopy 06/22/2029 06/22/2019, 100 04/2019, 01/13/2019, Additional history exists Colorectal Cancer Screening 06/22/2029 DTap/Tdap Vaccines (3 - Td or Tdap) [...] Directives occurred with: Not Discussed Care Teams Day Habilitation Specialist Relationship Specialty Start Date End Date Ninfa Cruz DO [address] [place] [address] PCP - General Family Medicine 02/08/16 documented as of this encounter
--- OUTSIDE RECORDS SUMMARY | 2024-11-18 23:14 | External Medical Summary | Summary of Care ---
Author Name Unknown Organization [facility] Address [address] [facility] [place] [address] Phone [phone] Care Team Providers Care Measuring Machine Operator Name Role Phone Ninfa Cruz DO Primary Care Provider [phone]- [phone] Reason for Visit * Reason Onset Date Comments Medication Refill 10/26/2024 Encounter Details Date Type Department Care Team (Late st Contact Info) Description 10/26/2024 Refill Family Practice 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 180 mL 1 06/13/20 24 Active Fluticasone-Salmet mike 115-21 MCG/ACT Inhalation Aerosol (Advair HFA)Indications:CO PD, group B, by GOLD 2017 classification ([facility]),Intermittent asthma with reliever use up to [...] 12/31/2022 Overview (01/15/2023): UDS + meth 11/23/22 [facility], new onset of paranoia and [...] very minimal noted on overnight PSG 2 [facility] Gastroesophageal reflux disease with esophagitis 03/14/2011 HTN, [...] IM 11/09/2009 Pneumococcal Conjugate Vacci ne, 20-valent ([id number]) 02/04/2023 Pneumococcal Polysaccharide PPV23 (Pneumovax) 01/17/2009 Seasonal [...] How often do you attend pentecostal or yarsani serv ices? Never 06/02/2023 Do you belong [...] Recorded PHQ Adult Total Score 0 02/04/2023 [facility] [place] of Occupat ional Health - Occupational Stress [...] Yes 06/03/2023 2:49 PM EDT Elda Peck, Tractor Driver * Do you have difficulty dressing or [...] encounter Miscellaneous Notes * Telephone Encounter - Deuce Chatman RPh - 10/26/2024 4:06 PM EST Refused Prescriptions: Disp Refills Dexlansoprazole 60 MG Oral Capsule Delayed*90 Cap*1 Sig: Take 1Capsule by mouth in the morning.Refused By: DEUCE CHATMAN for Refusal: Duplicate Reques t documented in this encounter Plan of Treatment Upcoming Encounters Date Type Department Care Team (Late st Contact Info) Description 11/10/2024 5:00 PM EST Office Visit Family Practice [facility] [address] [place] [address] Ninfa Cruz, [address] [place] [address] Health Maintenance Due Date Last Done Comments DISCUSS TOBACCO CESSATION (REFER TO SMARTSET #9579) 1965 O2 ASSESSMENT COMPLETED IN PAST YEAR [...] HPV/Co-Test 02/05/2028 02/04/2023 Lipid Panel 06/03/2028 06/03/2023, 030 05/2023, 02/16/2022, Additional history exists Colonoscopy 06/22/2029 06/22/2019, 1004/2019, 01/13/2019, Additional history [...] Directives occurred with: Not Discussed Care Teams Measuring Machine Operator Relationship Specialty Start Date End Date Ninfa Cruz DO [address] [place] [address] PCP - General Family Medicine 02/08/16 documented as of this encounter
--- OUTSIDE RECORDS SUMMARY | 2024-11-18 23:14 | External Medical Summary ---
Author Name Unknown Address Unknown Organization K01:LAB[facility]ORY [facility] [place] - [address] [place] [address] Laboratory Report Ordering Provider Test Date Status CORI NEAL 10/27/2024 10:29:11 Final Deficient: <20 ng/mL
Ins ufficient: 20-29 ng/mL
Recommended/Optimum:30-50 ng/mL

Vitamin D intoxication is rare. If suspicious of Vitamin D toxicity, evaluation of serum Calcium and PTH is recommended. Observation Date Value Abnormality Reference (Units ) Status 25-OH Vitamin D total 10/27/2024 10:29:11 23 >19 (ng/mL) Final Performing Location [facility]ORY [facility] [place] - [address] [place] [address]
--- OUTSIDE RECORDS SUMMARY | 2024-11-18 23:14 | External Medical Summary | Summary of Care ---
Author Name Unknown Organization [facility] Address [address] [facility] [place] [address] Phone [phone] Care Team Providers Care Puttier Name Role Phone Ninfa Cruz DO Primary Care Provider [phone] Reason for Visit * Reason Comments Outpatient Testing Encounter Details Date Type Department Care Team (Late st Contact Info) Description 10/27/2024 10:20 AM EST Laboratory Laboratory Scenery [facility] [address] [place] [id number] [place], Lab Scenery [address] [place] [address] HTN, goal below 130/80; Encounter for long-term (current) use of medications; Vitamin D insufficiency; Iron deficiency anemia, unspecified iron deficiency anemia type Allergies Active Allergy Reactions Criticality Noted Date [...] 21 MG/24HR Transdermal Patch 24 Hour (Nicoderm CQ)Indications: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 180 mL 1 06/13/20 24 Active Fluticasone-Salmet mike 115-21 MCG/ACT Inhalation Aerosol (Advair HFA)Indications:CO PD, group B, by GOLD 2017 classification ([facility]),Intermittent asthma with reliever use up to [...] Diagnosed Date Food insecurity 06/23/2023 Overview: [facility] Severe episode of recurrent major depressive disorder, without psychotic features 06/01/2023 PTSD (post-traumatic stress disorder) 06/01/2023 Cannabis abuse 06/01/2023 Iron deficiency anemia 03/25/2023 Substance abuse 12/31/2022 Overview (01/15/2023): UDS + meth 11/23/22 [facility], new onset of paranoia and confusion [...] minimal noted on overnight PSG 2 [facility] Gastroesophageal reflux disease with esophagitis 03/14/2011 [...] IM 11/09/2009 Pneumococcal Conjugate Vacci ne, 20-valent ([id number]) 02/04/2023 Pneumococcal Polysaccharide PPV23 (Pneumovax) 01/17/2009 Seasonal [...] often do you attend latter day or religion serv ices? Never 06/02/2023 Do you belong [...] Total Score 0 02/04/2023 [facility] - Occupational Stress Questionnaire Answer Date [...] place to sleep or slept in a usp (including now)? Yes 06/02/2023 Childcare Answer Date [...] Yes 06/03/2023 2:49 PM EDT Elda Peck, Glass Furnace Operator * Do you have difficulty dressing or [...] documented in this encounter Plan of Treatment Pending Results Name Type Priority Associated Diagnoses Date /Time LIPID PANEL WITH DIRECT LDL IF TG IS HIGH Lab Routine Encounter for long-term (current) use of medications 10/27/2024 10:29 AM EST 25-HYDROXY VITAMIN D Lab Routine Vitamin D insufficiency 10/27/2024 10:29 AM EST IRON SCREEN, INCLUDING TIBC Lab Routine Iron deficiency anemia, unspecified iron deficiency anemia type 10/27/2024 10:29 AM EST FERRITIN Lab Routine Iron deficiency anemia, unspecified iron deficiency anemia type 10/27/2024 10:29 AM EST Health Maintenance Due Date Last Done Comments DISCUSS TOBACCO CESSATION (REFER TO SMARTSET #7374) 1965 O2 ASSESSMENT COMPLETED IN PAST YEAR [...] 02/16/2022, Additional history exists Colonoscopy 06/22/2029 06/22/2019, 04/2019, 01/13/2019, Additional history [...] Not on filedocumented as of this encounter Procedures Procedure Name Priority Date/Time Associated Diagnosis Comments BASIC METABOLIC PANEL Routine 10/27/2024 10:29 AM EST HTN, goal below 130/80 documented in this encounter Results * BASIC METABOLIC PANEL (10/27/2024 10:29 AM EST) BUN 11 6 - 20 mg/dL 10/27/2024 11:37 AM [facility] 5602 CREATININE 0.7 0.5 - 1.0 mg/dL 10/27/2024 11:37 AM EST [facility] 5602 EGFR >90 >=60 mL/min 10/27/2024 11:37 AM [facility] 56- Comment:eGFR is calculated b ased on the CKD-EPI 2020 equation. SODIUM 140 135 - 146 mmol/L 10/27/2024 11:37 AM [facility] 56- POTASSIUM 4.6 3.5 - 5.1 mmol/L 10/27/2024 11:37 AM [facility] 56 CHLORIDE 101 98 - 107 mmol/L 10/27/2024 11:37 AM EST [address] CO2 30 22 - 32 mmol/L 10/27/2024 11:37 AM [facility] 56 ANION GAP 9 7 - 15 mmol/L 10/27/2024 11:37 AM [facility] 56 GLUCOSE 102 70 - 120 mg/dL 10/27/2024 11:37 AM [facility] 56 CALCIUM 9.4 8.4 - 10.2 mg/dL 10/27/2024 11:37 AM [facility] 56 Blood Venous blood specimen / Unknown Venipuncture / Unknown 10/27/2024 10:29 AM EST 10/27/2024 10:29 AM EST [facility] LAB BLOOD ORDERABLES Final Resul t [facility] [address] [place] [address] documented in this encounter Visit Diagnoses Diagnosis HTN, goal below 130/80 Unspecified essential hypertension Encounter for long-term (current) use of medications Encounter for long-term (current) use of other medications Vitamin D insufficiency Unspecified vitamin D deficiency Iron deficiency anemia, unspecified iron deficiency anemia type documented in this encounter Advance Directives [...] Directives occurred with: Not Discussed Care Teams Puttier Relationship Specialty Start Date End Date Ninfa Cruz DO [address] [place] [address] PCP - General Family Medicine 02/08/16 documented as of this encounter
--- OUTSIDE RECORDS SUMMARY | 2024-11-18 23:14 | External Medical Summary ---
Author Name Unknown Address Unknown Organization [id number]:[facility] - [address] [place] [address] Laboratory Report Ordering Provider Test Date Status CORI NEAL 10/27/2024 10:29:11 Final Observation Date Value Abnormality Reference (Units ) Status Iron 10/27/2024 10:29:11 56 33-151 (ug/dL) Final Iron-binding capacity 10/27/2024 10:29:11 403 250-425 (ug/dL) Final Transferrin Sat % 10/27/2024 10:29:11 14 Below low normal 15-55 (%) Final Performing Location [facility] - [address] [place] [address]
--- OUTSIDE RECORDS SUMMARY | 2024-11-18 23:14 | External Medical Summary ---
Author Name Unknown Address Unknown Organization [id number]:[facility] [place] [address] [facility] [address] Laboratory Report Ordering Provider Test Date Status KING ALMAZAN 10/27/2024 10:29:11 Final Observation Date Value Abnormality Reference (Units ) Status Triglyceride 10/27/2024 10:29:11 76 <=174 ( mg/dL) Final Triglyceride Reference Range s (mg/dL):
<150 Acceptable
150-174 Borderline high
175-499 High
>=500 Very high Cholesterol 10/27/2024 10:29:11 173 <200 (mg /dL) Final Total Cholesterol Reference Ranges (mg/dL):
<200 Desirable
200-239 Borderline high
>=240 High HDL 10/27/2024 10:29:11 69 >49 (mg/dL ) Final HDL Cholesterol Reference Ra nges (mg/dL):
>=60 High (Desirable)
<50 Low (Undesirable) For Females
<40 Low (Undesirable) For Males NON-HDL CHOLESTEROL 10/27/2024 10:29:11 104 <=159 (mg/dL) Final Non-HDL Cholesterol Referenc e Range (mg/dL):
<100 Target level for high risk ASCVD patient
<130 Optimal for general population
130-159 Near optimal for general population
160-189 Borderline High
190-219 High
>=220 Very High LDL, (calculated) 10/27/2024 10:29:11 89 <= 129 (mg/dL) Final LDL Cholesterol Reference Ra nges (mg/dL):
<70 Target level for high risk ASCVD patient
<100 Optimal for general population
100-129 Near optimal for general population
130-159 Borderline high
160-189 High
>=190 Very high Performing Location [facility] [place] - [address] [place] [address]
--- OUTSIDE RECORDS SUMMARY | 2024-11-18 23:14 | External Medical Summary | Summary of Care ---
Author Name Unknown Organization [facility] Address [address] [facility] [place] [address] Phone [phone] Care Team Providers Care Tongue And Groove Machine Feeder Name Role Phone Ninfa Cruz DO Primary Care Provider Encounter Details Date Type Department Care Team (Late st Contact Info) Description 10/25/2024 Orders Only PATIENT PORTAL DO NOT DELETE THIS DEPT USED BY [place] [id number] Allergies Active Allergy Reactions Criticality Noted Date [...] as of this encounter (statuses as of 10/25/2024) Medications Fexofenadine HCl 180 MG Oral Tablet (GNP Allergy Relief) Take 1 Tablet by mouth daily as needed for Allergies. 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 180 Capsule 1 10/06/19 25 Active [facility] Stomach Relief 525 MG/30ML Oral Suspension (Bismuth Subsalicylate)Lexie cations:Gastroesop hageal reflux disease with esophagitis without hemorrhage TAKE 30 ML BY MOUTH EVERY 6 HOURS NEEDED FOR NAUSEA OR OTHER (STOMACH UPSET). 473 mL 1 10/11/19 25 Active QUEtiapine Fumarate 25 MG Oral [...] Muscle spasms. 30 Tablet 10/18/19 25 Active documented as of this encounter (statuses as of 10/25/2024) Active Problems Problem Noted Date Diagnosed Date [...] noted on overnight PSG 2 [facility] Gastroesophageal reflux disease with esophagitis 03/14/2011 HTN, goal below 130/80 03/13/2011 Fibromyalgia 04/05/2010 Chronic nausea 04/02/2010 Overview (07/08/2017): ICD-10 update of inactive term Intermittent asthma with rel iever use up to twice per week without complication 01/04/2010 ANDRE (generalized anxiety disorder) 10/24/2009 Dyslipidemia 08/24/2009 Overview (08/24/2009): Per Lipid Taxonomy. Hypothyroidism 05/12/2009 documented as of this encounter (statuses as of 10/25/2024) Resolved Problems Problem Noted Date Diagnosed Date [...] as of this encounter (statuses as of 10/25/2024) Immunizations Name Administration Dates Next Due COVID-19, LNP-s, No Preserve , Lloyd-sucrose, Ages 12+ (Pfizer) 03/20/2022 H1N1 2008 Influenza, IM 11/09/2009 Pneumococcal Conjugate Vacci ne, 20-valent ([id number]) 02/04/2023 Pneumococcal Polysaccharide PPV23 (Pneumovax) 01/17/2009 Seasonal [...] Never 06/02/2023 How often do you attend sikhism or spiritism serv ices? Never 06/02/2023 Do you belong to any clubs o r organizations such as sikhism groups, unions, fraternal or athletic groups, or [...] 0 02/04/2023 [facility] - Occupational Stress Questionnaire Answer Date Recorded [...] place to sleep or slept in a correction (including now)? Yes 06/02/2023 Childcare Answer Date [...] Assessment Author No 09/01/2019 1:35 PM EST Olimpia Houston RN * Are you blind or do you have serious difficulty seeing, even when wearing glasses? Answer Date of Assessment Author No 09/01/2019 1:35 PM EST Columba Houston RN * Does this person have serious difficulty walking or climbing stairs? Answer Date of Assessment Author Yes 06/03/2023 2:49 PM Elda Bwoles, Second Miller * Do you have difficulty dressing or [...] 11/10/2024 5:00 PM EST Office Visit Family [facility] [address] [place] [address] Ninfa Cruz, [address] [place] [address] Health Maintenance Due Date Last Done Comments DISCUSS TOBACCO CESSATION (REFER TO SMARTSET #8881) 1965 O2 ASSESSMENT COMPLETED IN PAST YEAR [...] Directives occurred with: Not Discussed Care Teams Tongue And Groove Machine Feeder Relationship Specialty Start Date End Date Ninfa Cruz DO [address] [place] [address] PCP - General Family Medicine 02/08/16 documented as of this encounter
--- OUTSIDE RECORDS SUMMARY | 2024-11-18 23:14 | External Medical Summary | Summary of Care ---
Author Name Unknown Organization [facility] Address [address] [facility] [place] [address] Phone [phone] Care Team Providers Care Shop Router Name Role Phone Ninfa Cruz DO Primary Care Provider [phone] Reason for Visit * Reason Onset Date Comments Medication Refill 10/18/2024 Encounter Details Date Type Department Care Team (Late st Contact Info) Description 10/18/2024 Refill Family Practice [facility] [address] [place] [address] Ninfa Cruz DO [address] [place] [address] Gastroesophageal reflux disease with esophagitis without hemorrhage [...] as of this encounter (statuses as of 10/19/2024) Medications Fexofenadine HCl 180 MG Oral Tablet (GNP Allergy Relief) Take 1 Tablet by mouth daily as needed for Allergies. 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 180 mL 1 06/13/20 24 Active Fluticasone-Salmet mike 115-21 MCG/ACT Inhalation Aerosol (Advair HFA)Indications:CO PD, group B, by GOLD 2017 classification ([facility]),Intermittent asthma with reliever use up [...] as of this encounter (statuses as of 10/19/2024) Active Problems Problem Noted Date Diagnosed Date Food insecurity 06/23/2023 Overview: Per [facility] Protocol Severe episode of recurrent major [...] PSG 2 [facility] Gastroesophageal reflux disease with esophagitis 03/14/2011 HTN, goal below 130/80 03/13/2011 Fibromyalgia 04/05/2010 Chronic nausea 04/02/2010 Overview (07/08/2017): ICD-10 update of inactive term Intermittent asthma with rel iever use up to twice per week without complication 01/04/2010 ANDRE (generalized anxiety disorder) 10/24/2009 Dyslipidemia 08/24/2009 Overview (08/24/2009): Per Lipid Taxonomy. Hypothyroidism 05/12/2009 documented as of this encounter (statuses as of 10/19/2024) Resolved Problems Problem Noted Date Diagnosed Date [...] as of this encounter (statuses as of 10/19/2024) Immunizations Name Administration Dates Next Due COVID-19, LNP-s, No Preserve , Lloyd-sucrose, Ages 12+ (Pfizer) 03/20/2022 H1N1 2009 Influenza, IM 11/09/2009 Pneumococcal Conjugate Vacci ne, 20-valent ([id number]) 02/04/2023 Pneumococcal Polysaccharide PPV23 (Pneumovax) 01/17/2009 Seasonal [...] Never 06/02/2023 How often do you attend religion or holiness serv ices? Never 06/02/2023 Do you belong to any clubs o r organizations such as religion groups, unions, fraternal or athletic groups, or [...] [facility]at ional [facility] - Occupational Stress Questionnaire Answer Date [...] ages 0-17 years) Not on file 12/22/2023 Education Answer Date Recorded What is [...] Yes 06/03/2023 2:49 PM EDT Elda Peck, Eviscerator * Do you have difficulty dressing or [...] * Telephone Encounter - Anjana Hardin - 10/19/2024 4:32 AM ESTRefused Prescriptions: Disp Refills Bismuth Subsalicylate 262 MG/15ML Oral Chani*473 mL 1 Refused By:Jazzy HARDINon for Refusal: Duplicate Request documented in this encounter Plan of Treatment Upcoming Encounters Date Type Department Care Team (Late st Contact Info) Description 11/10/2024 5:00 PM EST Office Visit Family Practice [facility] [address] [place] [address] Ninfa Cruz DO [address] [place] [address] Health Maintenance Due Date Last Done Comments DISCUSS TOBACCO CESSATION (REFER TO SMARTSET #[id number]) 1965 O2 ASSESSMENT COMPLETED IN PAST YEAR [...] Directives occurred with: Not Discussed Care Teams Shop Router Relationship Specialty Start Date End Date Ninfa Cruz DO [address] [place] [address] PCP - General Family Medicine 02/08/16 documented as of this encounter
--- OUTSIDE RECORDS SUMMARY | 2024-11-18 23:14 | External Medical Summary | Summary of Care ---
Author Name Unknown Organization [facility] Address [address] [facility] [place] [address] Phone [phone] Care Team Providers Care Aviation Engineer Name Role Phone Ninfa Cruz DO Primary Care Provider [phone] Reason for Visit * Reason Onset Date Comments Medication Refill 10/23/2024 Encounter Details Date Type Department Care Team (Late st Contact Info) Description 10/23/2024 Refill Family Practice [facility] [address] [place] [address] Ninfa Cruz DO [address] [place] [address] Gastroesophageal reflux disease with esophagitis without hemorrhage [...] as of this encounter (statuses as of 10/24/2024) Medications Fexofenadine HCl 180 MG Oral Tablet (GNP Allergy Relief) Take 1 Tablet by mouth daily as needed for Allergies. 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),Tobacco use disorder Place 1 [...] as of this encounter (statuses as of 10/24/2024) Active Problems Problem Noted Date Diagnosed Date Food insecurity 06/23/2023 Overview: Per [facility] Protocol Severe episode of recurrent major [...] as of this encounter (statuses as of 10/24/2024) Resolved Problems Problem Noted Date Diagnosed Date [...] as of this encounter (statuses as of 10/24/2024) Immunizations Name Administration Dates Next Due COVID-19, LNP-s, No Preserve , Lloyd-sucrose, Ages 12+ (Pfizer) 03/20/2022 H1N1 2009 Influenza, IM 11/09/2009 Pneumococcal Conjugate Vacci ne, 20-valent ([id number]) 02/04/2023 Pneumococcal Polysaccharide PPV23 (Pneumovax) 01/17/2009 Seasonal [...] Never 06/02/2023 How often do you attend jainism or uatsdin serv ices? Never 06/02/2023 Do you belong to any clubs o r organizations such as jainism groups, unions, fraternal or athletic groups, or [...] Recorded PHQ Adult Total Score 0 02/04/2023 [facility] of Occupat ional [facility] - Occupational Stress Questionnaire Answer Date [...] Yes 06/03/2023 2:49 PM EDT Elda Peck, Holistic Health Practitioner * Do you have difficulty dressing or [...] encounter Miscellaneous Notes * Telephone Encounter - Michelle Ayala RPh - 10/24/2024 11:03 AM EST Refused Prescriptions: Disp Refills Dexlansoprazole 60 MG Oral Capsule Delayed*90 Cap*1 Sig: Take 1Capsule by mouth in the morning.Refused By: MICHELLE AYALAeason for Refusal: Too soon--------- documented in this encounter Plan of Treatment Upcoming Encounters Date Type Department Care Team (Late st Contact Info) Description 11/10/2024 5:00 PM EST Office Visit Family [address] [place] [address] Ninfa Cruz, DO [address] [place] [address] Health Maintenance Due Date Last Done Comments DISCUSS TOBACCO CESSATION (REFER TO SMARTSET #9471) 1965 O2 ASSESSMENT COMPLETED IN PAST YEAR [...] Directives occurred with: Not Discussed Care Teams Aviation Engineer Relationship Specialty Start Date End Date Ninfa Cruz DO [address] [place] [address] PCP - General Family Medicine 02/08/16 documented as of this encounter
--- OUTSIDE RECORDS SUMMARY | 2024-11-18 23:14 | External Medical Summary | Summary of Care ---
Author Name Unknown Organization [facility] Address [address] [facility] [place] [address] Phone [phone] Care Team Providers Care Radiation Control Health Physicist Name Role Phone Val Persaud DO Primary Care Provider [phone] Reason for Visit * Reason Onset Date Comments Medication Refill 10/23/2024 Encounter Details Date Type Department Care Team (Late st Contact Info) Description 10/23/2024 Refill Family Practice [facility] [address] [place] [address] Val Persaud DO [address] [place] [address] Gastroesophageal reflux disease with esophagitis without hemorrhage [...] (3) MG/3ML Inhalation Solution (Duoneb)Indicatio ns:COPD, moderate ([facility]) Inhale 3 mL via nebulizer in the morning and 3 mL at noon and 3 mL in the evening and 3 mL before bedtime. 180 mL 1 06/13/20 24 Active Fluticasone-Salme terol 115-21 MCG/ACT Inhalation Aerosol (Advair HFA)Indications:C OPD, group B, by GOLD 2017 classification ([facility]),Intermitten t asthma with reliever use up [...] UPSET). 473 mL 1 10/25/19 25 Active [facility] Stomach Relief 525 MG/30ML Oral Suspension (Bismuth Subsalicylate)Ind ications:Gastroes ophageal reflux disease with esophagitis without hemorrhage TAKE 30 ML BY MOUTH EVERY 6 HOURS NEEDED FOR NAUSEA OR OTHER (STOMACH UPSET). 473 mL 1 10/11/19 25 025 Discontin ued(Refil l) documented as of this encounter (statuses as of 10/25/2024) Active Problems Problem Noted Date Diagnosed Date Food insecurity 06/23/2023 Overview: Per [facility] Protocol Severe episode of recurrent major [...] noted on overnight PSG 2 [facility] Gastroesophageal reflux disease with esophagitis [...] IM 11/09/2009 Pneumococcal Conjugate Vacci ne, 20-valent ([id number]) 02/04/2023 Pneumococcal Polysaccharide PPV23 (Pneumovax) 01/17/2009 Seasonal [...] Never 06/02/2023 How often do you attend bahai or samaritan serv ices? Never 06/02/2023 Do you belong to any clubs o r organizations such as bahai groups, unions, fraternal or athletic groups, or [...] Recorded PHQ Adult Total Score 0 02/04/2023 [facility] - Occupational Stress Questionnaire Answer Date [...] place to sleep or slept in a care home (including now)? Yes 06/02/2023 Childcare Answer [...] Yes 06/03/2023 2:49 PM EDT Elda Peck, Traveling Crane Operator * Do you have difficulty dressing [...] Miscellaneous Notes * Telephone Encounter - Val Presaud, - 10/25/2024 2:47 PM ESTSigned Prescriptions: Disp Refills Bismuth Subsalicylate 262 MG/15ML Oral Chani*473 mL 1 Sig: TAKE 30 ML BY MOUTH EVERY 6 HOURS NEEDED FOR NAUSEA OR OTHER (STOMACH UPSET). Authorizing Provider: VAL PERSAUD Refused Prescriptions: Disp Refills Bismuth Subsalicylate 262 MG/15ML Oral Chani*473 mL 1 Refused By: MICHELLE AYALA on for Refusal: Dose needs clarification * Telephone Encounter - Michelle Ayala [facility] - 10/24/2024 11:07 AM EST Pending Prescriptions: Disp Refills Bismuth Subsalicylate 262 MG/15ML Oral Chani*473 mL 1 Sig: TAKE 30 ML BY MOUTH EVERY 6 HOURS NEEDED FOR NAUSEA OR OTHER (STOMACH UPSET). Refused Prescriptions: Disp Refills Bismuth Subsalicylate 262 MG/15ML Oral Chani*473 mL 1 Refused By: MICHELLE AYALA Reason for Refusal: Dose needs clarification * Telephone Encounter - Michelle Ayala RP - 10/24/2024 11:05 AM EST [facility] is currently not authorized to approve refills for the pended medication(s) per refill protocol. Please approve if appropriate. Thank you, Michelle Ayala [facility] Clinical Pharmacist [facility] ([facility]) 10/24/24 11:07 AM [phone] * Telephone Encounter - Michelle Ayala RPh - 10/24/2024 11:03 AM EST Did you pend patient's preferred pharmacy and medication before forwarding?yes Pharmacy: [id number] Pending Prescriptions: Disp Refills Bismuth Subsalicylate 262 MG/15ML Oral Valdez*473 mL 1 Last Visit: 06/24/2023 (in office), 04/23/2022 (telemedicine) Next Visit: 11/10/2024 If no future appointments scheduled, and last appointment is greater than a year ago, please schedule patient for a follow-up appointment Last date the medication was ordered: 10/11/2024 Is this request for a controlled substance?No [...] Lab Results Component Value Date/Time CREAT 0.7 06/01/2023 03:19 PM CREAT 0.8 04/20/2020 12:21 PM POTASSIUM 4.3 06/01/2023 03:19 PM POTASSIUM 3.9 04/20/2020 12:21 PM TSH 0.44 07/23/2024 01:42 PM TSH 1.85 03/24/2020 12:18 PM LDL 114 06/03/2023 06:00 AM LDL 206 (H) 03/24/2020 12:18 PM [...] 5:00 PM EST Office Visit Family Practice [facility] [address] [facility] [place] [address] Val Persaud, [address] [place] [address] Health Maintenance Due Date Last Done Comments DISCUSS TOBACCO CESSATION (REFER TO SMARTSET #3322) 1965 O2 ASSESSMENT COMPLETED IN PAST YEAR FOR COPD 1981 Cologuard 2008 Sigmoidoscopy 2008 Fecal Occult Blood Test 12/05/2019 12/04/2018 Mammogram 07/04/2021 07/04/2020, 05/3 09/2017, 08/27/2016, Additional history exists COVID-19 Vaccine (2 - Pfizer risk series) 04/10/2022 03/20/2022 Depression Monitoring 02/05/2024 02/04/2023 GFR 06/01/2024 06/01/2023, 01/14, 01/20/2023, Additional history exists Albumin/Creatinine Ratio 01/03/2025 01/03/2022 TSH 07/23/2025 07/23/2024, 05/17, 02/04/2023, Additional history exists Pap Smear 02/04/2026 02/04/2023, 10/17, 05/08/2012, Additional history exists Cervical Cancer Screening 02/05/2028 HPV/Co-Test 02/05/2028 02/04/2023 Lipid Panel 06/03/2028 06/03/2023, 0305/2023, 02/16/2022, Additional history exists Colonoscopy 06/22/2029 06/22/2019, [...] Directives occurred with: Not Discussed Care Teams Radiation Control Health Physicist Relationship Specialty Start Date End Date Val Persaud DO [address] [place] [address] PCP - General Family Medicine 02/08/16 documented as of this encounter
--- OUTSIDE RECORDS SUMMARY | 2024-11-18 23:14 | External Medical Summary ---
Author Name Unknown Address Unknown Organization K09:[facility] [place] [address] [place] [address] Laboratory Report Ordering Provider Test Date Status ANH RILEY 10/27/2024 10:29:11 Final Observation Date Value Abnormality Reference (Units ) Status BUN 10/27/2024 10:29:11 11 6-20 (mg/dL) Final Creatinine 10/27/2024 10:29:11 0.7 0.5-1.0 (mg/dL) Final Glomerular filtration rate/1.73 sq M.predicted [Volume Rate/Area] in Serum, Plasma or Blood by Creatinine-based formula (CKD-EPI) 10/27/2024 10:29:11 >90 >=60 (mL/min) Final eGFR is calculated based on the CKD-EPI 2020 equation. Sodium 10/27/2024 10:29:11 140 135-146 (m mol/L) Final Potassium 10/27/2024 10:29:11 4.6 3.5-5.1 (m mol/L) Final Cl 10/27/2024 10:29:11 101 98-107 (mm ol/L) Final CO2 10/27/2024 10:29:11 30 22-32 (mmo l/L) Final Anion gap 10/27/2024 10:29:11 9 7-15 (mmol /L) Final Glucose 10/27/2024 10:29:11 102 70-120 (mg /dL) Final Calcium 10/27/2024 10:29:11 9.4 8.4-10.2 ( mg/dL) Final Performing Location [facility] [place] [address]
--- OUTSIDE RECORDS SUMMARY | 2024-11-18 23:15 | External Medical Summary | Summary of Care ---
Author Name Unknown Organization [facility] Address [address] [facility] [place] [address] Phone [phone] Care Team Providers Care Oxyacetylene Torch Operator Name Role Phone Ninfa Cruz DO Primary Care Provider [phone] Reason for Visit * Reason Onset Date Comments Medication Refill 10/15/2024 Encounter Details Date Type Department Care Team (Late st Contact Info) Description 10/15/[address] [facility] [address] [facility] [place] [address] Ninfa Cruz DO [address] [place] [address] Gastroesophageal reflux disease with esophagitis without hemorrhage [...] as of this encounter (statuses as of 10/16/2024) Medications Fexofenadine HCl 180 MG Oral Tablet (GNP Allergy Relief) Take 1 Tablet by mouth daily as needed for Allergies. 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 180 mL 1 06/13/20 24 Active Fluticasone-Salmet mike 115-21 MCG/ACT Inhalation Aerosol (Advair HFA)Indications:CO PD, group B, by GOLD 2017 classification ([facility]),Intermittent asthma with reliever use up [...] for Fever (> 100.5F). 30 Tablet 1 09/03/20 24 Active Ondansetron 4 MG Oral Tablet Disintegrating (Zofran)Indication s:Nausea Place 1 Tablet on tongue every 6 hours as needed for Nausea. 90 Tablet 4 09/06/20 24 Active Bismuth Subsalicylate 262 MG/15ML [...] morning. 100 Tablet 3 09/27/19 25 Active Methocarbamol 500 MG Oral Tablet (Robamol) Take 1 Tablet by mouth 3 times a day as needed for Muscle spasms. 30 Tablet 09/27/19 25 Active Levothyroxine Sodium 75 MCG [...] morning. 90 Capsule 1 10/14/19 25 Active documented as of this encounter (statuses as of 10/16/2024) Active Problems Problem Noted Date Diagnosed Date Food insecurity 06/23/2023 Overview: Per [facility] Protocol Severe episode of recurrent major depressive disorder, without psychotic features 06/01/2023 PTSD (post-traumatic stress disorder) 06/01/2023 Cannabis abuse 06/01/2023 Iron deficiency anemia 03/25/2023 Substance abuse 12/31/2022 Overview (01/15/2023): UDS + meth 11/23/22 [facility], new onset of paranoia and confusion UDS [...] noted on overnight PSG 2 [facility] Gastroesophageal reflux disease with esophagitis 03/14/2011 HTN, goal below 130/80 03/13/2011 Fibromyalgia 04/05/2010 Chronic nausea 04/02/2010 Overview (07/08/2017): ICD-10 update of inactive term Intermittent asthma with rel iever use up to twice per week without complication 01/04/2010 ANDRE (generalized anxiety disorder) 10/24/2009 Dyslipidemia 08/24/2009 Overview (08/24/2009): Per Lipid Taxonomy. Hypothyroidism 05/12/2009 documented as of this encounter (statuses as of 10/16/2024) Resolved Problems Problem Noted Date Diagnosed Date [...] as of this encounter (statuses as of 10/16/2024) Immunizations Name Administration Dates Next Due COVID-19, LNP-s, No Preserve , Lloyd-sucrose, Ages 12+ (Pfizer) 03/20/2022 H1N1 2009 Influenza, IM 11/09/2009 Pneumococcal Conjugate Vacci ne, 20-valent ([id number]) 02/04/2023 Pneumococcal Polysaccharide PPV23 (Pneumovax) 01/17/2009 Seasonal [...] How often do you attend restoration or buddhist serv ices? Never 06/02/2023 Do you belong [...] 0 02/04/2023 [facility] of Occupat ional [facility] - Occupational Stress Questionnaire Answer Date [...] Yes 06/03/2023 2:49 PM EDT Elda Peck, Grape Crusher * Do you have difficulty dressing or [...] Notes * Telephone Encounter - Nicky Boone RP - 10/16/2024 5:53 AM EST Refused Prescriptions: Disp Refills Dexlansoprazole 60 MG Oral Capsule Delayed*90 Cap*1 Sig: Take 1Capsule by mouth in the morning.Refused By: NICKY BOONE for Refusal: Too soon-------- documented in this encounter Plan of Treatment Upcoming Encounters Date Type Department Care Team (Late st Contact Info) Description 11/10/2024 5:00 PM EST Office Visit Family Practice [facility] [address] [place] [address] Ninfa Cruz DO [address] [place] [address] Health Maintenance Due Date Last Done Comments DISCUSS TOBACCO CESSATION (REFER TO SMARTSET #6719) 1965 O2 ASSESSMENT COMPLETED IN PAST YEAR [...] Directives occurred with: Not Discussed Care Teams Oxyacetylene Torch Operator Relationship Specialty Start Date End Date Ninfa Cruz DO [address] [place] [address] PCP - General Family Medicine 02/08/16 documented as of this encounter
--- OUTSIDE RECORDS SUMMARY | 2024-11-18 23:15 | External Medical Summary | Summary of Care ---
Author Name Unknown Organization [facility] Address [address] [place] [place] [address] Phone [phone] Care Team Providers Care Manager Risk Management Name Role Phone Val Persaud DO Primary Care Provider [phone] Reason for Visit * Reason Comments eRx-Medication Refill Encounter Details Date Type Department Care Team (Late st Contact Info) Description 10/09/2024 Refill Family Practice [facility] [address] [facility] [place] [address] Val Persaud DO [address] [place] [address] Gastroesophageal reflux disease with esophagitis without hemorrhage [...] as of this encounter (statuses as of 10/11/2024) Medications Fexofenadine HCl 180 MG Oral Tablet [...] B, by GOLD 2017 classification ([facility]),Intermitten t asthma with reliever use up [...] upset). 473 mL 1 08/09/20 24 Active Dexlansoprazole 60 MG Oral Capsule Delayed Release (Dexilant)Indicat ions:Gastroesopha geal reflux disease with esophagitis without hemorrhage Take 1 Capsule by mouth in the morning. 90 Capsule 1 08/16/20 24 Active Ibuprofen 600 MG Oral Tablet [...] UPSET). 473 mL 1 10/11/19 25 Active Loratadine 10 MG Oral Tablet (Claritin)Indicat ions:Allergic Rhinitis Take 1 Tablet by mouth in the morning. 30 Tablet 2 10/10/19 25 Active Sucralfate 1 GM/10ML Oral Suspension (Carafate)Indicat ions:Gastroesopha geal reflux disease with esophagitis without hemorrhage Take 10 mL by mouth in the morning and 10 mL at noon and 10 mL in the evening and 10 mL before bedtime. 420 mL 1 02/11/20 24 025 Discontin ued(Refil l) Dicyclomine HCl 10 MG Oral Capsule (Bentyl)Indicatio ns:Abdominal Distress Take 2 Capsules by mouth 4 times a day as needed for Other (abdominal pain). 120 Capsule 05/26/20 24 025 Discontin ued(Refil l) QUEtiapine Fumarate 25 MG Oral Tablet (SEROquel)Indicat ions:Anxiety Take 1 Tablet by mouth every 8 hours as needed for Anxiety. 30 Tablet 09/17/19 25 025 Discontin ued(Refil l) documented as of this encounter (statuses as of 10/11/2024) Active Problems Problem Noted Date Diagnosed Date Food insecurity 06/23/2023 Overview: Per [facility] Protocol Severe episode of recurrent major depressive disorder, without psychotic features 06/01/2023 PTSD (post-traumatic stress disorder) 06/01/2023 Cannabis abuse 06/01/2023 Iron deficiency anemia 03/25/2023 Substance abuse 12/31/2022 Overview (01/15/2023): UDS + meth 11/23/22 [facility], new onset of paranoia and confusion UDS [...] very minimal noted on overnight PSG 2 [facility] Gastroesophageal reflux disease with esophagitis 03/14/2011 HTN, goal below 130/80 03/13/2011 Fibromyalgia 04/05/2010 Chronic nausea 04/02/2010 Overview (07/08/2017): ICD-10 update of inactive term Intermittent asthma with rel iever use up to twice per week without complication 01/04/2010 ANRDE (generalized anxiety disorder) 10/24/2009 Dyslipidemia 08/24/2009 Overview (08/24/2009): Per Lipid Taxonomy. Hypothyroidism 05/12/2009 documented as of this encounter (statuses as of 10/11/2024) Resolved Problems Problem Noted Date Diagnosed Date [...] as of this encounter (statuses as of 10/11/2024) Immunizations Name Administration Dates Next Due COVID-19, LNP-s, No Preserve , Lloyd-sucrose, Ages 12+ (Pfizer) 03/20/2022 H1N1 2009 Influenza, IM 11/09/2009 Pneumococcal Conjugate Vacci ne, 20-valent ([id number]) 02/04/2023 Pneumococcal Polysaccharide PPV23 (Pneumovax) 01/17/2009 Seasonal [...] Never 06/02/2023 How often do you attend catholic or rastafari serv ices? Never 06/02/2023 Do you belong to any clubs o r organizations such as catholic groups, unions, fraternal or athletic groups, or [...] Recorded PHQ Adult Total Score 0 02/04/2023 [facility] of Occupat ional [facility] - Occupational Stress Questionnaire Answer Date Recorded [...] place to sleep or slept in a senior care (including now)? Yes 06/02/2023 Childcare Answer Date [...] No 12/22/2023 Does the household have a [facility] source of income? (Household - for [...] Yes 06/03/2023 2:49 PM EDT Elda Peck, Colors Custodian * Do you have difficulty dressing or [...] Telephone Encounter - Val Persaud DO - 10/11/2024 11:04 AM ESTSigned Prescriptions: Disp Refills CVS Stomach Relief 525 MG/30ML Oral Suspen*473 mL 1 Sig: TAKE 30 ML BY MOUTH EVERY 6 HOURS NEEDED FOR NAUSEA OR OTHER (STOMACH UPSET). Authorizing Provider: VAL PERSAUD * Telephone Encounter - Nighat Treviño, MED ASSIST - 10/11/2024 8:45 AM EST Pending Prescriptions: Disp Refills [facility]S Stomach Relief 525 MG/30ML Oral Suspen*473 mL 1 Sig: TAKE 30 ML BY MOUTH EVERY 6 HOURS NEEDED FOR NAUSEA OR OTHER (STOMACH UPSET). * Telephone Encounter - Anjana Hardin - 10/09/2024 4:06 AM ESTPending Prescriptions: Disp Refills [facility]S Stomach Relief 525 MG/30ML Oral Suspen*473 mL 1 Sig: TAKE 30 ML BY MOUTH EVERY 6 HOURS NEEDED FOR NAUSEA OR OTHER (STOMACH UPSET). documented in this encounter Plan of Treatment Upcoming Encounters Date Type Department Care Team (Late st Contact Info) Description 11/10/2024 5:00 PM EST Office Visit Family Practice [facility] [address] [place] [address] Val Persaud, [address] [place] [address] Health Maintenance Due Date Last Done Comments DISCUSS TOBACCO CESSATION (REFER TO SMARTSET #3609) 1965 O2 ASSESSMENT COMPLETED IN PAST YEAR [...] Directives occurred with: Not Discussed Care Teams Manager Risk Management Relationship Specialty Start Date End Date Val Persaud DO [address] [facility] [place] [address] PCP - General Family Medicine 02/08/16 documented as of this encounter
--- OUTSIDE RECORDS SUMMARY | 2024-11-18 23:15 | External Medical Summary | Summary of Care ---
Author Name Unknown Organization [facility] Address [address] [facility] [place] [address] Phone [phone] Care Team Providers Care Baseball Sewer Hand Name Role Phone Val Persaud DO Primary Care Provider [phone] Reason for Visit * Reason Onset Date Comments Medication Refill 10/09/2024 Encounter Details Date Type Department Care Team (Late st Contact Info) Description 10/09/2024 Refill Family Practice [facility] [address] [facility] [place] [address] Val Persaud DO [address] [place] [address] Gastroesophageal reflux disease with esophagitis without hemorrhage [...] Active Benzonatate 100 MG Oral Capsule (Tessalon Perlmarifer)Indication s:Suspected COVID-19 virus infection,Dry cough Take 1 [...] (3) MG/3ML Inhalation Solution (Duoneb)Indicatio ns:COPD, moderate ([facility]) Inhale 3 mL via nebulizer in the morning and 3 mL at noon and 3 mL in the evening and 3 mL before bedtime. 180 mL 1 06/13/20 24 Active Fluticasone-Salme terol 115-21 MCG/ACT Inhalation Aerosol (Advair HFA)Indications:C OPD, group B, by GOLD 2017 classification ([facility]),Intermitten t asthma with reliever use up to [...] 1 02/11/20 24 025 Discontin ued(Refil l) documented as of this encounter (statuses as of 10/11/2024) Active Problems Problem Noted Date Diagnosed Date Food insecurity 06/23/2023 Overview: Per [facility] Protocol Severe episode of recurrent major depressive disorder, without psychotic features 06/01/2023 PTSD (post-traumatic stress disorder) 06/01/2023 Cannabis abuse 06/01/2023 Iron deficiency anemia 03/25/2023 Substance abuse 12/31/2022 Overview (01/15/2023): UDS + meth 11/23/22 [facility], new onset of paranoia and confusion [...] noted on overnight PSG 2 [facility] Gastroesophageal reflux disease with esophagitis [...] IM 11/09/2009 Pneumococcal Conjugate Vacci ne, 20-valent ([id number]) 02/04/2023 Pneumococcal Polysaccharide PPV23 (Pneumovax) 01/17/2009 Seasonal [...] Never 06/02/2023 How often do you attend mandaen or amish serv ices? Never 06/02/2023 Do you belong to any clubs o r organizations such as mandaen groups, unions, fraternal or athletic groups, or [...] No 12/22/2023 Does the household have a [facility] source of income? (Household - for ages [...] Yes 06/03/2023 2:49 PM EDT Elda Peck, Floor Waxer * Do you have difficulty dressing or [...] 10/11/2024 11:04 AM ESTSigned Prescriptions: Disp Refills Sucralfate 1 GM/10ML Oral Suspension (Ginny*420 mL 1 Sig: Take 10 mL by mouth in the morning and 10 mL at noon and 10 mL in the evening and 10 mL before bedtime. Authorizing Provider: VAL PERSAUD * Telephone Encounter - Nighat Treviño, MED ASSIST - 10/11/2024 8:44 AM EST Pending Prescriptions: Disp Refills Sucralfate 1 GM/10ML Oral Suspension (Ginny*420 mL 1 Sig: Take 10 mL by mouth in the morning and 10 mL at noon and 10 mL in the evening and 10 mL before bedtime. * Telephone Encounter - Nighat Treviño MED ASSIST - 10/11/2024 8:44 AM EST Did you pend patient's preferred pharmacy and medication before forwarding?yes Pharmacy: [id number] Pending Prescriptions: Disp Refills Sucralfate 1 GM/10ML Oral Suspension (Car*420 mL 1 Sig: Take 10 mL by mouth in the morning and 10 mL at noon and 10 mL in the evening and 10 mL before bedtime. Last Visit: 06/24/2023 (in office), 04/23/2022 (telemedicine) Next Visit: 11/10/2024 If no future appointments scheduled, and last appointment is greater than a year ago, please schedule patient for a follow-up appointment Last date the medication was ordered: Is this request for a controlled substance?No [...] DRUG PANEL, URINE W/ INTERPRETATION Result Value Compliance Interpretation Based on the medication information provided: The negative screening results are CONSISTENT with the information provided. Confirmatory testing is available upon request. Amphetamines Screen, U Negative Benzodiazepines Screen, U Negative Cannabinoids Screen, U Negative Cocaine Metabolite Screen, U Negative Fentanyl Screen, U Negative Hydrocodone Screen, U Negative Methadone Metabolite Screen, U Negative Morphine/Codeine Screen, U Negative Oxycodone Screen, U Negative Valid Interpretation Normal Creatinine, U 25 Narrative Cutoff [...] found in Results Review. Patient Phone Numbers [employer] [phone] Labs: Lab Results Component Value Date/Time CREAT [...] * Telephone Encounter - Anjana Hardin - 10/10/2024 4:35 AM ESTPending Prescriptions: Disp Refills Sucralfate 1 GM/10ML Oral Suspension (Ginny*420 mL 1 Sig: Take 10 mL by mouth in the morning and 10 mL at noon and 10 mL in the evening and 10 mL before bedtime.---- documented in this encounter Plan of Treatment Upcoming Encounters Date Type Department Care Team (Late st Contact Info) Description 11/10/2024 5:00 PM EST Office Visit Family Practice [facility] [address] [place] [address] Val Persaud DO [address] [place] [address] Health Maintenance Due Date Last Done Comments DISCUSS TOBACCO CESSATION (REFER TO SMARTSET #3399) 1965 O2 ASSESSMENT COMPLETED IN PAST YEAR [...] Directives occurred with: Not Discussed Care Teams Baseball Sewer Hand Relationship Specialty Start Date End Date Val Persaud DO [address] [place] [address] PCP - General Family Medicine 02/08/16 documented as of this encounter
--- OUTSIDE RECORDS SUMMARY | 2024-11-18 23:15 | External Medical Summary | Summary of Care ---
Author Name Unknown Organization [facility] Address [address] [facility] [place] [address] Phone [phone] Care Team Providers Care Chemicals Fermentation Operator Name Role Phone Val Persaud DO Primary Care Provider [phone] Reason for Visit * Reason Onset Date Comments Medication Refill 10/09/2024 Encounter Details Date Type Department Care Team (Late st Contact Info) Description 10/09/2024 Refill Family Practice [facility] [address] [facility] [place] [address] Val Persaud DO [address] [place] [address] Allergies Active Allergy Reactions Criticality Noted Date [...] Inhalation Solution (Duoneb)Indicatio ns:COPD, moderate ([facility]) Inhale 3 mL via nebulizer in the morning and 3 mL at noon and 3 mL in the evening and 3 mL before bedtime. 180 mL 1 06/13/20 24 Active Fluticasone-Salme terol 115-21 MCG/ACT Inhalation Aerosol (Advair HFA)Indications:C OPD, group B, by GOLD 2017 classification ([facility]),Intermitten t asthma with reliever use [...] (abdominal pain). 120 Capsule 10/11/19 25 Active Loratadine 10 MG Oral [...] Capsule 05/26/20 24 025 Discontin ued(Refil l) documented as of this encounter (statuses as of 10/11/2024) Active Problems Problem Noted Date Diagnosed Date Food insecurity 06/23/2023 Overview: Per [facility] Protocol Severe episode of recurrent major [...] very minimal noted on overnight PSG 2 [facility] Gastroesophageal reflux disease with esophagitis 03/14/2011 HTN, [...] IM 11/09/2009 Pneumococcal Conjugate Vacci ne, 20-valent ([id number]) 02/04/2023 Pneumococcal Polysaccharide PPV23 (Pneumovax) 01/17/2009 Seasonal [...] Never 06/02/2023 How often do you attend anabaptist or yarsani serv ices? Never 06/02/2023 Do you belong to any clubs o r organizations such as anabaptist groups, unions, fraternal or athletic groups, or [...] Recorded PHQ Adult Total Score 0 02/04/2023 [facility] - Occupational Stress Questionnaire Answer Date [...] Yes 06/03/2023 2:49 PM EDT Elda Peck, Die Repairer Stamping * Do you have difficulty dressing or [...] 10/11/2024 11:04 AM ESTSigned Prescriptions: Disp Refills Dicyclomine HCl 10 MG Oral Capsule (Bentyl)120 Ca*0 Sig: Take 2 Capsules by mouth 4 times a day as needed for Other (abdominal pain).Authorizing Provider: VAL PERSAUD * Telephone Encounter - Val Persaud DO - 10/11/2024 11:04 AM ESTSigned Prescriptions: Disp Refills Dicyclomine HCl 10 MG Oral Capsule (Bentyl)120 Ca*0 Sig: Take 2 Capsules by mouth 4 times a day as needed for Other (abdominal pain). Authorizing Provider: VAL PERSAUD * Telephone Encounter - Adriana Fenton LPN - 10/11/2024 10:42 AM ESTPending Prescriptions: Disp Refills Dicyclomine HCl 10 MG Oral Capsule (Bentyl)120 Ca*0 Sig: Take 2 Capsules by mouth 4 times a day as needed for Other (abdominal pain). * Telephone Encounter - Nighat Treviño, MED ASSIST - 10/11/2024 8:44 AM EST Pending Prescriptions: Disp Refills Dicyclomine HCl 10 MG Oral Capsule (Bentyl)120 Ca*0 Sig: Take 2 Capsules by mouth 4 times a day as needed for Other (abdominal pain). * Telephone Encounter - Nighat Treviño MED ASSIST - 10/11/2024 8:44 AM EST Did you pend patient's preferred pharmacy and medication before forwarding?yes Pharmacy: [id number] Pending Prescriptions: Disp Refills Dicyclomine HCl 10 MG Oral Capsule (Benty*120 Ca*0 Sig: Take 2 Capsules by mouth 4 times a day as needed for Other (abdominal pain). Last Visit: 06/24/2023 (in office), 04/23/2022 (telemedicine) [...] Telephone Encounter - Anjana Hardin - 10/09/2024 7:40 PM ESTPending Prescriptions: Disp Refills Dicyclomine HCl 10 MG Oral Capsule (Bentyl)120 Ca*0 Sig: Take 2Capsules by mouth 4 times a day as needed for Other (abdominal pain). documented in this encounter Plan of Treatment Upcoming Encounters Date Type Department Care Team (Late st Contact Info) Description 11/10/2024 5:00 PM EST Office Visit Family [facility] [address] [place] [address] Val Persaud DO [address] [place] [place] [address] Health Maintenance Due Date Last Done Comments DISCUSS TOBACCO CESSATION (REFER TO SMARTSET #6944) 1965 O2 ASSESSMENT COMPLETED IN PAST YEAR [...] Directives occurred with: Not Discussed Care Teams Chemicals Fermentation Operator Relationship Specialty Start Date End Date Val Persaud DO [address] [place] [address] PCP - General Family Medicine 02/08/16 documented as of this encounter
--- OUTSIDE RECORDS SUMMARY | 2024-11-18 23:15 | External Medical Summary | Summary of Care ---
Author Name Unknown Organization [facility] Address [address] [facility] [place] [address] Phone [phone] Care Team Providers Care Finger Waver Name Role Phone Val Persaud DO Primary Care Provider [phone] Reason for Visit * Reason Onset Date Comments Medication Refill 10/15/2024 Encounter Details Date Type Department Care Team (Late st Contact Info) Description 10/15/2024 Refill Family Practice [facility] [address] [place] [address] Val Persaud DO [address] [place] [address] Allergies Active Allergy Reactions Criticality Noted Date [...] as of this encounter (statuses as of 10/18/2024) Medications Fexofenadine HCl 180 MG Oral Tablet [...] Muscle spasms. 30 Tablet 10/18/19 25 Active Methocarbamol 500 MG Oral Tablet (Robamol) Take 1 Tablet by mouth 3 times a day as needed for Muscle spasms. 30 Tablet 09/27/19 25 025 Discontin ued(Refil l) documented as of this encounter (statuses as of 10/18/2024) Active Problems Problem Noted Date Diagnosed Date Food insecurity 06/23/2023 Overview: Per [facility] Protocol Severe episode of recurrent major depressive disorder, without psychotic features 06/01/2023 PTSD (post-traumatic stress disorder) 06/01/2023 Cannabis abuse 06/01/2023 Iron deficiency anemia 03/25/2023 Substance abuse 12/31/2022 Overview (01/15/2023): UDS + meth 11/23/22 [facility], new onset of paranoia and [...] very minimal noted on overnight PSG 2 [facility] Gastroesophageal reflux disease with esophagitis 03/14/2011 HTN, goal below 130/80 03/13/2011 Fibromyalgia 04/05/2010 Chronic nausea 04/02/2010 Overview (07/08/2017): ICD-10 update of inactive term Intermittent asthma with rel iever use up to twice per week without complication 01/04/2010 ANDRE (generalized anxiety disorder) 10/24/2009 Dyslipidemia 08/24/2009 Overview (08/24/2009): Per Lipid Taxonomy. Hypothyroidism 05/12/2009 documented as of this encounter (statuses as of 10/18/2024) Resolved Problems Problem Noted Date Diagnosed Date [...] as of this encounter (statuses as of 10/18/2024) Immunizations Name Administration Dates Next Due COVID-19, LNP-s, No Preserve , Lloyd-sucrose, Ages 12+ (Pfizer) 03/20/2022 H1N1 2009 Influenza, IM 11/09/2009 Pneumococcal Conjugate Vacci ne, 20-valent ([id number]) 02/04/2023 Pneumococcal Polysaccharide PPV23 (Pneumovax) 01/17/2009 Seasonal [...] How often do you attend sikhism or gnosticism serv ices? Never 06/02/2023 Do you belong [...] Recorded PHQ Adult Total Score 0 02/04/2023 [facility] - [...] of Assessment Author No 09/01/2019 1:35 PM Olimpia March RN * Does this person have serious difficulty walking or climbing stairs? Answer Date of Assessment Author Yes 06/03/2023 2:49 PM EDT Elda Peck, Retail Product Advisor * Do you have difficulty dressing or [...] Telephone Encounter - Val Persaud DO - 10/18/2024 11:53 AM ESTSigned Prescriptions: Disp Refills Methocarbamol 500 MG Oral Tablet (Robamol) 30 Tab*0 Sig: Take 1 Tablet by mouth 3 times a day as needed for Muscle spasms. Authorizing Provider: VAL PERSAUD * Telephone Encounter - Nighat Treviño, MED ASSIST - 10/18/2024 7:51 AM EST Pending Prescriptions: Disp Refills Methocarbamol 500 MG Oral Tablet (Robamol) 30 Tab*0 Sig: Take 1 Tablet by mouth 3 times a day as needed for Muscle spasms. * Telephone Encounter - Anjana Hardin - 10/16/2024 1:35 PM ESTPending Prescriptions: Disp Refills Methocarbamol 500 MG Oral Tablet (Robamol) 30 Tab*0 Sig: Take 1Tablet by mouth 3 times a day as needed for Muscle spasms. documented in this encounter Plan of Treatment Upcoming Encounters Date Type Department Care Team (Late st Contact Info) Description 11/10/2024 5:00 PM EST Office Visit Family Practice [facility] [address] [place] [address] Val Persaud DO [address] [place] [address] Health Maintenance Due Date Last Done Comments DISCUSS TOBACCO CESSATION (REFER TO SMARTSET #3820) 1965 O2 ASSESSMENT COMPLETED IN PAST YEAR [...] Directives occurred with: Not Discussed Care Teams Finger Waver Relationship Specialty Start Date End Date Val Persaud DO [address] [place] [address] PCP - General Family Medicine 02/08/16 documented as of this encounter
--- OUTSIDE RECORDS SUMMARY | 2024-11-18 23:15 | External Medical Summary | Summary of Care ---
Author Name Unknown Organization [facility] Address [address] [facility] [place] [address] Phone [phone] Care Team Providers Care Explosives Worker Name Role Phone Val Persaud DO Primary Care Provider [phone] Reason for Visit * Reason Onset Date Comments Medication Refill 10/09/2024 Encounter Details Date Type Department Care Team (Late st Contact Info) Description 10/09/2024 Refill Family Practice [facility] [address] [facility] [place] [address] Val Persaud DO [address] [place] [address] Allergies Active Allergy Reactions Criticality Noted Date [...] (3) MG/3ML Inhalation Solution (Duoneb)Indicatio ns:COPD, moderate ([facility]) Inhale 3 mL via nebulizer in the morning and 3 mL at noon and 3 mL in the evening and 3 mL before bedtime. 180 mL 1 06/13/20 24 Active Fluticasone-Salme terol 115-21 MCG/ACT Inhalation Aerosol (Advair HFA)Indications:C OPD, group B, by GOLD 2017 classification ([facility]),Intermitten t asthma with reliever use [...] for Anxiety. 30 Tablet 10/11/19 25 Active Loratadine 10 MG Oral [...] Diagnosed Date Food insecurity 06/23/2023 Overview: Per [facility] Protocol Severe episode of recurrent major depressive disorder, without psychotic features 06/01/2023 PTSD (post-traumatic stress disorder) 06/01/2023 Cannabis abuse 06/01/2023 Iron deficiency anemia 03/25/2023 Substance abuse 12/31/2022 Overview (01/15/2023): UDS + meth 11/23/22 [facility], new onset of paranoia and confusion UDS [...] very minimal noted on overnight PSG 2 [facility] Gastroesophageal reflux disease with esophagitis 03/14/2011 HTN, goal below 130/80 03/13/2011 Fibromyalgia 04/05/2010 Chronic nausea 04/02/2010 Overview (07/08/2017): ICD-10 update of inactive term Intermittent asthma with rel iever use up to twice per week without complication 01/04/2010 NADRE (generalized anxiety disorder) 10/24/2009 Dyslipidemia 08/24/2009 Overview [...] IM 11/09/2009 Pneumococcal Conjugate Vacci ne, 20-valent ([id number]) 02/04/2023 Pneumococcal Polysaccharide PPV23 (Pneumovax) 01/17/2009 Seasonal [...] Never 06/02/2023 How often do you attend quaker or moravian serv ices? Never 06/02/2023 Do you belong to any clubs o r organizations such as quaker groups, unions, fraternal or athletic groups, or [...] Recorded PHQ Adult Total Score 0 02/04/2023 [facility] - Occupational Stress Questionnaire Answer Date [...] place to sleep or slept in a [place] health care facility (including now)? Yes 06/02/2023 Childcare Answer Date [...] Yes 06/03/2023 2:49 PM EDT Elda Peck, Instrumentation And Control Technician * Do you have difficulty dressing or [...] 10/11/2024 11:04 AM ESTSigned Prescriptions: Disp Refills QUEtiapine Fumarate 25 MG Oral Tablet (SER*30 Tab*0 Sig: Take 1 Tablet by mouth every 8 hours as needed for Anxiety. Authorizing Provider: VAL PERSAUD * Telephone Encounter - Veronica Preston [facility] - 10/10/2024 8:27 AM EST Pending Prescriptions: Disp Refills QUEtiapine Fumarate 25 MG Oral Tablet (SER*30 Tab*0 Sig: Take 1 Tablet by mouth every 8 hours as needed for Anxiety. * Telephone Encounter - Veronica Preston [facility] - 10/10/2024 8:26 AM EST [facility] is currently not authorized to approve refills for the pended medication(s) per refill protocol. Please approve if appropriate. Thank you, Veronica Preston, PharmD Clinical Pharmacist [facility]) 10/10/24 8:26 AM [phone] documented in this encounter Plan of Treatment Upcoming Encounters Date Type Department Care Team (Late st Contact Info) Description 11/10/2024 5:00 PM EST Office Visit Family [facility] [address] [place] [address] Val Persaud, [address] [place] [address] Health Maintenance Due Date Last Done Comments DISCUSS TOBACCO CESSATION (REFER TO SMARTSET #0766) 1965 O2 ASSESSMENT COMPLETED IN PAST YEAR [...] Directives occurred with: Not Discussed Care Teams Explosives Worker Relationship Specialty Start Date End Date Val Persaud DO [address] [place] [address] PCP - General Family Medicine 02/08/16 documented as of this encounter
--- OUTSIDE RECORDS SUMMARY | 2024-11-18 23:15 | External Medical Summary | Summary of Care ---
Author Name Unknown Organization [facility] Address [address] [facility] [place] [address] Phone [phone] Care Team Providers Care Nurse Research Name Role Phone Ninfa Cruz DO Primary Care Provider [phone] Reason for Visit * Reason Onset Date Comments Medication Refill 10/15/2024 Encounter Details Date Type Department Care Team (Late st Contact Info) Description 10/15/2024 Refill Family Practice [facility] [address] [facility] [place] [address] Ninfa Cruz DO [address] [place] [address] Allergies Active Allergy Reactions Criticality Noted Date [...] 21 MG/24HR Transdermal Patch 24 Hour (Nicoderm CQ)Indications: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 Never 06/02/2023 Do you belong [...] Recorded PHQ Adult Total Score 0 02/04/2023 [facility] - Occupational Stress [...] place to sleep or slept in a [facility] (including now)? Yes 06/02/2023 Childcare Answer Date [...] Yes 06/03/2023 2:49 PM EDT Elda Peck, Bow Rehairer * Do you have difficulty dressing or bathing? (5 years old or older) Answer Date of Assessment Author No 09/01/2019 1:35 PM EST [place], J denise M, RN * Because of a physical, mental, [...] Telephone Encounter - Anjana Hardin - 10/16/2024 4:18 AM ESTRefused Prescriptions: Disp Refills Vitamin B-12 1000 MCG Oral Tablet (Cyanoco*100 Ta*3 Sig: Take 1Tablet by mouth in the morning.Refused By: CARMELO HARDINeason for Refusal: Duplicate Request------- documented in this encounter Plan of Treatment Upcoming Encounters Date Type Department Care Team (Late st Contact Info) Description 11/10/2024 5:00 PM EST Office Visit Family [facility] [address] [place] [address] Ninfa Cruz DO [address] [place] [address] Health Maintenance Due Date Last Done Comments DISCUSS TOBACCO CESSATION (REFER TO SMARTSET #6110) 1965 O2 ASSESSMENT COMPLETED IN PAST YEAR [...] Directives occurred with: Not Discussed Care Teams Nurse Research Relationship Specialty Start Date End Date Ninfa Cruz DO [address] [place] [address] PCP - General Family Medicine 02/08/16 documented as of this encounter
--- OUTSIDE RECORDS SUMMARY | 2024-11-18 23:15 | External Medical Summary | Summary of Care ---
Author Name Unknown Organization [facility] Address [address] [facility] [place] [address] Phone [phone] Care Team Providers Care Digital Marketer Name Role Phone Ninfa Cruz DO Primary Care Provider [phone] Reason for Visit * Reason Onset Date Comments Medication Refill 10/15/2024 Encounter Details Date Type Department Care Team (Late st Contact Info) Description 10/15/2024 Refill Family Practice [facility] [address] [facility] [place] [address] Ninfa Cruz DO [address] [place] [address] Gastroesophageal reflux disease with esophagitis without hemorrhage [...] 21 MG/24HR Transdermal Patch 24 Hour (Nicoderm CQ)Indications: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 180 mL 1 06/13/20 24 Active Fluticasone-Salmet mike 115-21 MCG/ACT Inhalation Aerosol (Advair HFA)Indications:CO PD, group B, by GOLD 2017 classification ([facility]),Intermittent asthma with reliever use up [...] 12/31/2022 Overview (01/15/2023): UDS + meth 11/23/22 [facility], new onset of paranoia and confusion UDS [...] minimal noted on overnight PSG 2 [facility] Gastroesophageal reflux disease with esophagitis 03/14/2011 [...] IM 11/09/2009 Pneumococcal Conjugate Vacci ne, 20-valent ([id number]) 02/04/2023 Pneumococcal Polysaccharide PPV23 (Pneumovax) 01/17/2009 Seasonal [...] Never 06/02/2023 How often do you attend roman catholic or worship serv ices? Never 06/02/2023 Do you belong to any clubs o r organizations such as roman catholic groups, unions, fraternal or athletic groups, [...] Recorded PHQ Adult Total Score 0 02/04/2023 [facility] - Occupational Stress Questionnaire Answer [...] place to sleep or slept in a prison (including now)? Yes 06/02/2023 Childcare Answer Date [...] Yes 06/03/2023 2:49 PM EDT Elda Peck, Siene Maker * Do you have difficulty dressing or [...] encounter Miscellaneous Notes * Telephone Encounter - Nicole Almanza LPN - 10/16/2024 9:10 AM ESTRefused Prescriptions: Disp Refills Bismuth Subsalicylate 262 MG/15ML Oral Chani*473 mL 1 Sig: Take 30 mL by mouth every 6 hours as needed for Nausea, Indigestion or Diarrhea.Refused By: Chitra ALMANZA for Refusal: Too soon * Telephone Encounter - Nicole Almanza LPN - 10/16/2024 9:09 AM EST Script sent to the same pharm 10/11/24 for 15 day fill and 1 refills * Telephone Encounter - Anjana Hardin - 10/16/2024 4:20 AM ESTPending Prescriptions: Disp Refills Bismuth Subsalicylate 262 MG/15ML Oral Chani*473 mL 1 documented in this encounter Plan of Treatment Upcoming Encounters Date Type Department Care Team (Late st Contact Info) Description 11/10/2024 5:00 PM EST Office Visit [facility] [address] [place] [address] Ninfa Cruz DO [address] [place] [address] Health Maintenance Due Date Last Done Comments DISCUSS TOBACCO CESSATION (REFER TO SMARTSET #2313) 1965 O2 ASSESSMENT COMPLETED IN PAST YEAR [...] HPV/Co-Test 02/05/2028 02/04/2023 Lipid Panel 06/03/2028 06/03/2023, 05/2023, 02/16/2022, Additional history exists Colonoscopy 06/22/2029 [...] Directives occurred with: Not Discussed Care Teams Digital Marketer Relationship Specialty Start Date End Date Ninfa Cruz DO [address] [place] [address] PCP - General Family Medicine 02/08/16 documented as of this encounter
--- OUTSIDE RECORDS SUMMARY | 2024-11-18 23:16 | External Medical Summary | Summary of Care ---
Author Name Unknown Organization [facility] Address [address] [place] [address] Phone [phone] Care Team Providers Care Snow Blower Name Role Phone Ninfa Cruz DO Primary Care Provider [phone] Reason for Visit * Reason Onset Date Comments Med Request 10/06/2024 Encounter Details Date Type Department Care Team (Late st Contact Info) Description 10/06/2024 [facility]phone [facility] [address] [facility] [address] Ninfa Cruz [facility] [address] [facility] [place] [address] Med Request Allergies Active Allergy Reactions Criticality Noted Date [...] as of this encounter (statuses as of 10/08/2024) Medications Fexofenadine HCl 180 MG Oral Tablet (GNP Allergy Relief) Take 1 Tablet by mouth daily as needed for Allergies. 30 Tablet 11 12/24/19 24 11:59 AM EDT 023 Active Nicotine 21 MG/24HR Transdermal Patch 24 Hour (Nicoderm CQ)Indications:CO PD, moderate (HCC),Tobacco use disorder Place 1 Patch over 24 hours topically on the skin daily. 28 Patch 1 08/04/20 23 11:13 AM EST 023 Active Nicotine Polacrilex 2 MG Mouth/Throat Gum (Nicorette) Chew one piece of gum every 1 to 2 hours for the first 6 weeks, then 1 every 2 to 4 hours for weeks 7 to 9, then 1 every 4 to 8 hours. 120 Each 1 10/28/19 24 5:24 PM EST 024 Active Nicotine Polacrilex 4 MG Mouth/Throat Gum (GNP Nicotine Polacrilex)Indica tions:Tobacco use Chew one piece of gum every 1 to 2 hours for the first 6 weeks, then 1 every 2 to 4 hours for weeks 7 to 9, then 1 every 4 to 8 hours. 110 Each 02/11/20 24 10:41 AM EDT 024 Active Sucralfate 1 GM/10ML Oral Suspension (Carafate)Indicat ions:Gastroesopha geal reflux disease with esophagitis without hemorrhage Take 10 mL by mouth in the morning and 10 mL at noon and 10 mL in the evening and 10 mL before bedtime. 420 mL 1 024 Active Benzonatate 100 MG Oral Capsule (Tessalon Perles)Indication s:Suspected COVID-19 virus infection,Dry cough Take 1 Capsule by mouth 3 times a day as needed for Cough. Do not cut, crush, or chew. 30 Capsule 03/08/20 24 1:12 PM EDT 024 Active Simethicone 80 MG Oral Tablet Chewable (Gas Relief)Indication s:Gas Pain Take 1 Tablet by mouth every 6 hours as needed for Gas. 30 Tablet 5 024 Active Ferrous Sulfate 325 (65 Fe) MG Oral Tablet (FeroSul)Indicati ons:Anemia Take 1 Tablet by mouth in the morning and 1 Tablet at noon and 1 Tablet in the evening. Take with meals. 90 Tablet 2 024 Active Phenazopyridine HCl 200 MG Oral Tablet (Pyridium)Indicat ions:Dysuria Take 1 Tablet by mouth 3 times a day as needed for Pain, Mild. After meals for pain with urination 20 Tablet 3 024 Active Dicyclomine HCl 10 MG Oral Capsule (Bentyl)Indicatio ns:Abdominal Distress Take 2 Capsules by mouth 4 times a day as needed for Other (abdominal pain). 120 Capsule 024 Active Loratadine 10 MG Oral Tablet (Claritin)Indicat ions:Allergic Rhinitis Take 1 Tablet by mouth in the morning. 30 Tablet 5 024 Active Nicotine 14 MG/24HR Transdermal Patch 24 Hour (Nicoderm CQ)Indications:To bacco use disorder PLACE 1 PATCH OVER 24 HOURS TOPICALLY ON THE SKIN DAILY 28 Patch 024 Active Ipratropium-Albut mike 0.5-2.5 (3) MG/3ML Inhalation Solution (Duoneb)Indicatio ns:COPD, moderate ([facility]) Inhale 3 mL via nebulizer in the morning and 3 mL at noon and 3 mL in the evening and 3 mL before bedtime. 180 mL 1 024 Active Fluticasone-Salme terol 115-21 MCG/ACT Inhalation Aerosol (Advair HFA)Indications:C OPD, group B, by GOLD 2017 classification ([facility]),Intermitten t asthma with reliever use up to twice per week without complication Inhale 2 Puffs by mouth in the morning and 2 Puffs before bedtime. 12 g 12 024 Active Polyethylene Glycol 3350 17 GM/SCOOP Oral Powder (MiraLax)Indicati ons:Constipation, unspecified constipation type Take 17 g by mouth as needed for Constipation. Dissolve one heaping tablespoon in 8 ounces of water or juice. 850 g 1 024 Active Estradiol 0.1 MG/GM Vaginal Cream (Estrace)Indicati ons:Menopause USE 1/4 OF APPLICATORFUL 2 TO 3 TIMES PER WEEK. 127.5 g 3 024 Active Albuterol Sulfate HFA 108 (90 Base) MCG/ACT Inhalation Aerosol Solution Inhale 2 Puffs by mouth every 6 hours as needed for Dyspnea. 54 g 024 Active Vitamin D3 25 MCG (1000 UT) Oral Tablet (Vitamin D3) Take 1 Tablet by mouth in the morning. 90 Tablet 1 024 Active Bismuth Subsalicylate 262 MG/15ML Oral Suspension ([employer] Stomach Relief)Indication s:Gastroesophagea l reflux disease with esophagitis without hemorrhage Take 30 mL by mouth every 6 hours as needed for Nausea or Other (stomach upset). 473 mL 1 024 Active Dexlansoprazole 60 MG Oral Capsule Delayed Release (Dexilant)Indicat ions:Gastroesopha geal reflux disease with esophagitis without hemorrhage Take 1 Capsule by mouth in the morning. 90 Capsule 1 024 Active Ibuprofen 600 MG Oral Tablet (Motrin)Indicatio ns:Chronic Pain Take 1 Tablet by mouth every 6 hours as needed for Fever (> 100.5F). 30 Tablet 1 024 Active Ondansetron 4 MG Oral Tablet Disintegrating (Zofran)Indicatio ns:Nausea Place 1 Tablet on tongue every 6 hours as needed for Nausea. 90 Tablet 4 024 Active Bismuth Subsalicylate 262 MG/15ML Oral Suspension ([employer] Stomach Relief)Indication s:Gastroesophagea l reflux disease with esophagitis without hemorrhage Take 30 mL by mouth every 6 hours as needed for Nausea. 473 mL 1 024 Active QUEtiapine Fumarate 25 MG Oral Tablet (SEROquel)Indicat ions:Anxiety Take 1 Tablet by mouth every 8 hours as needed for Anxiety. 30 Tablet 025 Active Venlafaxine HCl ER 75 MG Oral Capsule Extended Release 24 Hour (Effexor XR)Indications:Mo derate episode of recurrent major depressive disorder (HCC) Take 1 Capsule by mouth in the morning. Do not cut, crush or chew. 90 Capsule 025 Active Vitamin B-12 1000 MCG Oral Tablet (Cyanocobalamin)I ndications:Vitami n Deficiency Prophylaxis Take 1 Tablet by mouth in the morning. 100 Tablet 3 025 Active Methocarbamol 500 MG Oral Tablet (Robamol) Take 1 Tablet by mouth 3 times a day as needed for Muscle spasms. 30 Tablet 025 Active Levothyroxine Sodium 75 MCG Oral Tablet (Levoxyl)Indicati ons:Hypothyroidis m Take 1 Tablet by mouth daily first thing in the morning. 90 Tablet 3 025 Active Prochlorperazine Maleate 10 MG Oral Tablet (Compazine) TAKE ONE TABLET BY MOUTH EVERY 6 HOURS NEEDED FOR NAUSEA 120 Tablet 2 025 Active Fluticasone Propionate 50 MCG/ACT Nasal Suspension (Flonase)Indicati ons:Asthma Administer 2 Sprays into nostril 2 times a day as needed for Congestion. 16 g 1 025 Active Lidocaine 5 % External Patch (Lidoderm)Indicat ions:Personal history of fall,Closed fracture of one rib of left side, initial encounter Place 1 Patch over 12 hours topically on the skin daily. 30 Patch 025 Active Pregabalin 225 MG Oral Capsule (Lyrica)Indicatio ns:Chronic pain syndrome Take 1 Capsule by mouth in the morning and 1 Capsule before bedtime. Brand necessary. 180 Capsule 1 025 Active Pregabalin 225 MG Oral Capsule (Lyrica)Indicatio ns:Chronic pain syndrome Take 1 Capsule by mouth in the morning and 1 Capsule before bedtime. 180 Capsule 1 025 2024 Discontinued(R efill) Pregabalin 225 MG Oral Capsule (Lyrica)Indicatio ns:Chronic pain syndrome Take 1 Capsule by mouth in the morning and 1 Capsule before bedtime. Brand necessary. 180 Capsule 1 025 2024 Discontinued documented as of this encounter (statuses as of 10/08/2024) Active Problems Problem Noted Date Diagnosed Date Food insecurity 06/23/2023 Overview: Per [facility] Protocol Severe episode of recurrent major depressive disorder, without psychotic features 06/01/2023 PTSD (post-traumatic stress disorder) 06/01/2023 Cannabis abuse 06/01/2023 Iron deficiency anemia 03/25/2023 Substance abuse 12/31/2022 Overview (01/15/2023): UDS + meth 11/23/22 [facility], new onset of paranoia and confusion UDS [...] noted on overnight PSG 2 [facility] Gastroesophageal reflux disease with esophagitis 03/14/2011 HTN, goal below 130/80 03/13/2011 Fibromyalgia 04/05/2010 Chronic nausea 04/02/2010 Overview (07/08/2017): ICD-10 update of inactive term Intermittent asthma with rel iever use up to twice per week without complication 01/04/2010 ANDRE (generalized anxiety disorder) 10/24/2009 Dyslipidemia 08/24/2009 Overview (08/24/2009): Per Lipid Taxonomy. Hypothyroidism 05/12/2009 documented as of this encounter (statuses as of 10/08/2024) Resolved Problems Problem Noted Date Diagnosed Date [...] as of this encounter (statuses as of 10/08/2024) Immunizations Name Administration Dates Next Due COVID-19, LNP-s, No Preserve , Lloyd-sucrose, Ages 12+ (Pfizer) 03/20/2022 H1N1 2009 Influenza, IM 11/09/2009 Pneumococcal Conjugate Vacci ne, 20-valent ([id number]) 02/04/2023 Pneumococcal Polysaccharide PPV23 (Pneumovax) 01/17/2009 Seasonal [...] How often do you attend jainism or restorationism serv ices? Never 06/02/2023 Do you belong [...] Recorded PHQ Adult Total Score 0 02/04/2023 [facility] - Occupational Stress [...] No 12/22/2023 Does the household have a [facility] source [facility] income? (Household - for [...] Yes 06/03/2023 2:49 PM EDT Elda Peck, Mold Burner * Do you have difficulty dressing or [...] encounter Miscellaneous Notes * Telephone Encounter - Jazmine Frausto, [facility] - 10/08/2024 3:00 PM EST Please submit PA. Include the following documentation: TE 05/19/2019 documenting that generic lyrica did not work well for her MTM note 04/17/2017 Telephone encounter 08/31/2018 Telephone encounter 01/15/2012 Progress note from Christin Socrates Prater 03/03/17 documenting intolerance to topamax Progress note from 06/16/2012 with Madhuri Lwa Please copy and paste the following information into PA form: Inadequate response to generic lyrica What other drugs is there medical record documentation of therapeutic failure on, intolerance to, or contraindication to for this condition? Inadequate response to generic pregabalin Gabapentin - ineffective Cymbalta - intolerant Effexor - currently established Elavil - intolerant topamax Aleksandar as urgent: No Diagnosis/ICD-10 Code(s): M79.7 If instantaneous decision is not received after submitting prior auth, please continue to follow upon this and route back to the [facility] if no decision is made by the insurance by 10/15, after clarifying with the pharmacy that the claim is still not processing. If PA is denied, please also route back to [facility]. Thank you, Ajzmine Frausto, PharmD Clinical Pharmacist [facility] ([facility]) 10/08/24 3:00 PM [phone] * Telephone Encounter - Jazmine Frausto RPh - 10/08/2024 3:00 PM EST This is a new PA request. Upon review of this prior authorization request, I verified this request is appropriate. This is prescribed by a department for which [facility] is authorized to review prior authorizations This is not a duplicate encounter regarding the same prior authorization The patient is planning to use insurance The insurance information listed in previous note is correct and the plan that is requiring prior authorization The insurance does not cover either brand or generic forms of this script as written without prior authorization The insurance does not cover any NDCs of this script without prior authorization RX Estimate tool is unable to determine coverage of requested script Of note, there is nothing currently pending in [facility] for this request. Please advise how to proceed. Thank you, Jazmine Frausto PharmD Clinical Pharmacist [facility] ([facility]) 10/08/24 3:00 PM [phone] * Telephone Encounter - Layla Del Rosario PHARM Tech - 10/08/2024 10:42 AM EST [facility] calling to check on status of brand lyrica prior auth. Caller can be reached at [phone]. Thank You, Layla Del Rosario CPhT Network Engineer Administrator II [facility] ([facility]) 10/08/2024, 10:42 AM * Telephone Encounter - Molly Pinzon PHARM Tech - 10/07/2024 3:11 PM EST Patient calling to inform doctor that the patient's insurance will not pay for this medication without a completed prior authorization. Did confirm this information with the pharmacy. Pt's current insurance information is as follows: Patient name: Beata Juarez ID number: [id number] BIN number: [id number] PCN number: [id number] Group number: [id number] Subscriber name: Beata Juarez Primary or Secondary Insurance:Primary Medication: Pregabalin 225 MG Oral Capsule (Lyrica) Reason for Request: Prior auth for brand Pharmacy and phone number: [facility] [address] [place] [address] Rx plan and phone number: [facility] Is this a new medication for the patient? No. How did the patient obtain the medication on the lastfill? It was covered last time on this same insurance. What alternative medications does the pharmacy have in stock?: NA Thank you, Molly Pinzon CPhT Remotely Piloted Vehicle Controller II [facility]) 10/07/2024,3:11 PM * Telephone Encounter - Fani Horton OSA - 10/06/2024 9:08 AM EST Patient called to request a new prescription of Pregabalin 225 MG Oral Capsule (Lyrica) send the [facility] pharmacy. [facility] only carry the Generic brand and she doesn't want the generic brand. Patient is requesting a call when prescription is sent. documented in this encounter Plan of Treatment Upcoming Encounters Date Type Department Care Team (Late st Contact Info) Description 11/10/2024 5:00 PM EST Office Visit Family Practice [facility] [address] [place] [address] Ninfa Cruz DO [address] [place] [address] Health Maintenance Due Date Last Done Comments DISCUSS TOBACCO CESSATION (REFER TO SMARTSET #1430) 1965 O2 ASSESSMENT COMPLETED IN PAST YEAR [...] as of this encounter Visit Diagnoses Diagnosis Chronic pain syndrome documented in this encounter Advance Directives * [...] Directives occurred with: Not Discussed Care Teams Snow Blower Relationship Specialty Start Date End Date Ninfa Cruz DO [address] [place] [address] PCP - General Family Medicine 02/08/16 documented as of this encounter
--- OUTSIDE RECORDS SUMMARY | 2024-11-18 23:16 | External Medical Summary | Summary of Care ---
Author Name Unknown Organization [facility] Address [address] [place] [address] Phone [phone] Care Team Providers Care Film Drying Machine Operator Name Role Phone Ninfa Cruz DO Primary Care Provider [phone] Reason for Visit * Reason Onset Date Comments Med Request 10/06/2024 Encounter Details Date Type Department Care Team (Late st Contact Info) Description 10/06/2024 Telephone [facility] [address] [facility] [address] [facility]a [facility] DO [address] [facility] [place] [address] Med Request Allergies Active Allergy Reactions Criticality [...] (3) MG/3ML Inhalation Solution (Duoneb)Indicatio ns:COPD, moderate ([facility]) Inhale 3 mL via nebulizer in the morning and 3 mL at noon and 3 mL in the evening and 3 mL before bedtime. 180 mL 1 024 Active Fluticasone-Salme terol 115-21 MCG/ACT Inhalation Aerosol (Advair HFA)Indications:C OPD, group B, by GOLD 2017 classification ([facility]),Intermitten t asthma with reliever use up to [...] Diagnosed Date Food insecurity 06/23/2023 Overview: Per [facility] Protocol Severe episode of recurrent major depressive disorder, without psychotic features 06/01/2023 PTSD (post-traumatic stress disorder) 06/01/2023 Cannabis abuse 06/01/2023 Iron deficiency anemia 03/25/2023 Substance abuse 12/31/2022 Overview (01/15/2023): UDS + meth 11/23/22 [facility], new onset of paranoia and confusion UDS [...] noted on overnight PSG 2 [facility] Gastroesophageal reflux disease with esophagitis 03/14/2011 HTN, [...] IM 11/09/2009 Pneumococcal Conjugate Vacci ne, 20-valent ([id number]) 02/04/2023 Pneumococcal Polysaccharide PPV23 (Pneumovax) 01/17/2009 Seasonal [...] Never 06/02/2023 How often do you attend lutheran or worship serv ices? Never 06/02/2023 Do you belong to any clubs o r organizations such as lutheran groups, unions, fraternal or athletic groups, or [...] Recorded PHQ Adult Total Score 0 02/04/2023 [facility] - Occupational Stress Questionnaire Answer [...] 12/22/2023 Does the household have a [facility] source of income? (Household - for [...] Yes 06/03/2023 2:49 PM EDT Elda Peck, Content Creation Manager * Do you have difficulty dressing [...] encounter Miscellaneous Notes * Telephone Encounter - Layla Del Rosario PHARM Tech - 10/08/2024 10:42 AM EST [facility] calling to check on status of brand lyrica prior auth. Caller can be reached at [phone]. Thank You, Layla Del Rosario [facility] Belt Maker II [facility]) 10/08/2024, 10:42 AM * Telephone Encounter - Molly Pinzon PHARM Tech - 10/07/2024 3:11 PM EST Patient calling to inform doctor that the patient's insurance will not pay for this medication without a completed prior authorization. Did confirm this information with the pharmacy. Pt's current insurance information is as follows: Patient name: Beata Juarez ID number: [id number] BIN number: [id number] PCN number: [id number] Group number: [id number] Subscriber name: Beata Juarez Primary or Secondary Insurance:Primary Medication: Pregabalin 225 MG Oral Capsule (Lyrica) Reason for Request: Prior auth for brand Pharmacy and phone number: [facility] [address] [place] [address] [place] [phone] Rx plan and phone number: [facility] Is this a new medication for the patient? No. How did the patient obtain the medication on the lastfill? It was covered last time on this same insurance. What alternative medications does the pharmacy have in stock?: NA Thank you, Molly Pinzon CPhT Development Geologist II [facility]) 10/07/2024,3:11 PM * Telephone Encounter - Fani Horton OSA - 10/06/2024 9:08 AM EST Patient called to request a new prescription of Pregabalin 225 MG Oral Capsule (Lyrica) send the [facility] pharmacy. [facility] the Generic brand and she doesn't want the generic brand. Patient is requesting a call when prescription is sent. documented in this encounter Plan of Treatment Upcoming Encounters Date Type Department Care Team (Late st Contact Info) Description 11/10/2024 5:00 PM EST Office Visit Family Practice [facility] [address] [facility] [place] [address] Ninfa Cruz, [address] [place] [address] Health Maintenance Due Date Last Done Comments DISCUSS TOBACCO CESSATION (REFER TO SMARTSET #[id number]) 1965 O2 ASSESSMENT COMPLETED IN PAST YEAR FOR COPD 1981 Cologuard 2008 Sigmoidoscopy 2008 Fecal Occult Blood Test 12/05/2019 12/04/2018 Mammogram 07/04/2021 07/04/2020, 05/09/2017, 08/27/2016, Additional history exists COVID-19 Vaccine (2 [...] Directives occurred with: Not Discussed Care Teams Film Drying Machine Operator Relationship Specialty Start Date End Date Ninfa Cruz DO [address] [place] [address] PCP - General Family Medicine 02/08/16 documented as of this encounter
--- OUTSIDE RECORDS SUMMARY | 2024-11-18 23:16 | External Medical Summary | Summary of Care ---
Author Name Unknown Organization [facility] Address [address] [facility] [place] [address] Phone [phone] Care Team Providers Care Self Contained Behavior Unit Teacher Name Role Phone Ninfa Cruz DO Primary Care Provider [phone] Reason for Visit * Reason Onset Date Comments Medication Refill 10/08/2024 Encounter Details Date Type Department Care Team (Late st Contact Info) Description 10/08/2024 Refill Family Practice [facility] [address] [facility] [place] [address] Ninfa Cruz DO [address] [place] [address] Chronic pain syndrome Allergies Active Allergy Reactions Criticality Noted Date [...] as of this encounter (statuses as of 10/09/2024) Medications Fexofenadine HCl 180 MG Oral Tablet (GNP Allergy Relief) Take 1 Tablet by mouth daily as needed for Allergies. 30 Tablet 11 4 11:59 AM EDT 07/07/20 23 Active Nicotine 21 MG/24HR Transdermal Patch 24 Hour (Nicoderm CQ)Indications:FIRER TUNNEL KILN D, moderate (HCC),Tobacco use disorder Place 1 [...] 4 10:41 AM EDT 02/10/20 24 Active Sucralfate 1 GM/10ML Oral Suspension (Carafate)Indicati ons:Gastroesophage al reflux disease with esophagitis without hemorrhage Take 10 mL by mouth in the morning and 10 mL at noon and 10 mL in the evening and 10 mL before bedtime. 420 mL 1 02/11/20 24 Active Benzonatate 100 MG Oral Capsule [...] urination 20 Tablet 3 05/18/20 24 Active Dicyclomine HCl 10 MG Oral Capsule (Bentyl)Indication s:Abdominal Distress Take 2 Capsules by mouth 4 times a day as needed for Other (abdominal pain). 120 Capsule 05/26/20 24 Active Loratadine 10 MG Oral Tablet (Claritin)Indicati ons:Allergic Rhinitis Take 1 Tablet by mouth in the morning. 30 Tablet 5 06/02/20 24 Active Nicotine 14 MG/24HR Transdermal Patch [...] Nausea. 473 mL 1 09/09/20 24 Active QUEtiapine Fumarate 25 MG Oral Tablet (SEROquel)Indicati ons:Anxiety Take 1 Tablet by mouth every 8 hours as needed for Anxiety. 30 Tablet 09/17/19 25 Active Venlafaxine HCl ER 75 MG Oral [...] necessary. 180 Capsule 1 10/06/19 25 Active documented as of this encounter (statuses as of 10/09/2024) Active Problems Problem Noted Date Diagnosed Date Food insecurity 06/23/2023 Overview: Per [facility] Protocol Severe episode of recurrent major depressive disorder, without psychotic features 06/01/2023 PTSD (post-traumatic stress disorder) 06/01/2023 Cannabis abuse 06/01/2023 Iron deficiency anemia 03/25/2023 Substance abuse 12/31/2022 Overview (01/15/2023): UDS + meth 11/23/22 [facility], new onset of paranoia [...] very minimal noted on overnight PSG 2 [facility] Gastroesophageal reflux [...] as of this encounter (statuses as of 10/09/2024) Resolved Problems Problem Noted Date Diagnosed Date [...] as of this encounter (statuses as of 10/09/2024) Immunizations Name Administration Dates Next Due COVID-19, LNP-s, No Preserve , Lloyd-sucrose, Ages 12+ (Pfizer) 03/20/2022 H1N1 2009 Influenza, IM 11/09/2009 Pneumococcal Conjugate Vacci ne, 20-valent ([id number]) 02/04/2023 Pneumococcal Polysaccharide PPV23 (Pneumovax) 01/17/2009 Seasonal [...] How often do you attend jain or mormon serv ices? Never 06/02/2023 Do you belong [...] 02/04/2023 [facility] - Occupational Stress [...] 09/01/2019 1:35 PM Olimpia March RN * Are you blind or do you have serious difficulty seeing, even when wearing glasses? Answer Date of Assessment Author No 09/01/2019 1:35 PM Columba March RN * Does this person have serious difficulty walking or climbing stairs? Answer Date of Assessment Author Yes 06/03/2023 2:49 PM EDT Elda Peck, Propagator Laborer * Do you have difficulty dressing or [...] PM EST Houston, J denise M, RN documented as of this encounter Mental Status * Because of a physical, mental, or emotional condition, do you have serious difficulty concentrating, remembering, or making decisions? (5 years old or older) Answer Entry Date Author No 09/01/2019 1:35 PM EST Columba Houston RN documented in this encounter Miscellaneous Notes * Telephone Encounter - Deuce Chatman [facility] - 10/09/2024 10:22 AM EST Refused Prescriptions: Disp Refills Pregabalin 225 MG Oral Capsule (Lyrica) 180 Ca*1 Sig: Take 1 Capsule by mouth in the morning and 1 Capsule before bedtime. Brand necessary.Refused By: DEUCE CHATMANReason for Refusal: Duplicate Request documented in this encounter Plan of Treatment Upcoming Encounters Date Type Department Care Team (Late st Contact Info) Description 11/10/2024 5:00 PM EST Office Visit Family Practice [facility] [address] [facility] [place] [address] Ninfa Cruz, [address] [place] [address] Health Maintenance Due Date Last Done Comments DISCUSS TOBACCO CESSATION (REFER TO SMARTSET #3295) 1965 O2 ASSESSMENT COMPLETED IN PAST YEAR [...] Directives occurred with: Not Discussed Care Teams Self Contained Behavior Unit Teacher Relationship Specialty Start Date End Date Ninfa Cruz DO [address] [place] [address] PCP - General Family Medicine 02/08/16 documented as of this encounter
--- OUTSIDE RECORDS SUMMARY | 2024-11-18 23:16 | External Medical Summary | Summary of Care ---
Author Name Unknown Organization [facility] Address [address] [facility] [place] [address] Phone [phone] Care Team Providers Care Midwife Name Role Phone iNnfa Cruz DO Primary Care Provider [phone] Reason for Visit * Reason Onset Date Comments Med Request 10/06/2024 Encounter Details Date Type Department Care Team (Late st Contact Info) Description 10/06/[address] [facility] [address] [facility] [place] [address] Ninfa Cruz DO [address] [facility] [place] [address] Med Request Allergies Active Allergy Reactions Criticality [...] MG/3ML Inhalation Solution (Duoneb)Indicatio ns:COPD, moderate ([facility]) Inhale 3 mL via nebulizer in the morning and 3 mL at noon and 3 mL in the evening and 3 mL before bedtime. 180 mL 1 024 Active Fluticasone-Salme terol 115-21 MCG/ACT Inhalation Aerosol (Advair HFA)Indications:C OPD, group B, by GOLD 2017 classification ([facility]),Intermitten t asthma with reliever use up to [...] Diagnosed Date Food insecurity 06/23/2023 Overview: Per [facility] Protocol Severe episode of recurrent major depressive disorder, without psychotic features 06/01/2023 PTSD (post-traumatic stress disorder) 06/01/2023 Cannabis abuse 06/01/2023 Iron deficiency anemia 03/25/2023 Substance abuse 12/31/2022 Overview (01/15/2023): UDS + meth 11/23/22 [facility], new onset of paranoia and confusion [...] very minimal noted on overnight PSG 2 [facility] Gastroesophageal reflux disease with esophagitis [...] IM 11/09/2009 Pneumococcal Conjugate Vacci ne, 20-valent ([id number]) 02/04/2023 Pneumococcal Polysaccharide PPV23 (Pneumovax) 01/17/2009 Seasonal [...] Never 06/02/2023 How often do you attend temple or pentecostal serv ices? Never 06/02/2023 Do you belong to any clubs o r organizations such as temple groups, unions, fraternal or athletic groups, or [...] Recorded PHQ Adult Total Score 0 02/04/2023 [facility] - Occupational Stress Questionnaire Answer Date [...] No 12/22/2023 Does the household have a [facility] source of income? (Household - for [...] Yes 06/03/2023 2:49 PM EDT Elda Peck, Deputy Court * Do you have difficulty dressing or [...] encounter Miscellaneous Notes * Telephone Encounter - Ninfa Dunne PHARM Tech - 10/08/2024 4:35 PM EST Submitted information in previous note via CMM (Leroy: [id number]).. Awaiting payer response. We will follow-up with insurance starting 10/12. Per [facility] request, if no decision is received from insurance by 10/15, we will route back to the [facility] ED after clarifying with the pharmacy that the claim is still not processing. Thank you, Ninfa Dunne [facility] Multi Sensor Operator II [facility] ([facility]) 10/08/2024,4:35 PM * Telephone Encounter - Frausto Jazmine Jessica, [facility] ED - 10/08/2024 3:00 PM EST Please submit PA. Include the following documentation: TE 05/19/2019 documenting that generic lyrica did not work well for her MTM note 04/17/2017 Telephone encounter 08/31/2018 Telephone encounter 01/15/2012 Progress note from Christin Prater 03/03/17 documenting intolerance to topamax Progress note from 06/16/2012 with Madhuri Law Please copy and paste the following information [...] upon this and route back to the [facility] ED pool if no decision is made by the insurance by 10/15, after clarifying with the pharmacy that the claim is still not processing. If PA is denied, please also route back to [facility] ED. Thank you, Jazmine Frausto PharmD Clinical Pharmacist [facility] ([facility]) 10/08/24 3:00 PM [phone] * Telephone Encounter - Jazmine Frausto RPh - 10/08/2024 3:00 PM EST This is a new PA request. Upon review of this prior authorization request, I verified this request is appropriate. This is prescribed by a department for which [facility] is authorized to review prior [...] note, there is nothing currently pending in [facility] for this request. Please advise how to proceed. Thank you, Jazmine Frausto PharmD Clinical Pharmacist [facility] ([facility]) 10/08/24 3:00 PM [phone] * Telephone Encounter - Layla Del Rosario PHARM Tech - 10/08/2024 10:42 AM EST Johann calling to check on status of brand lyrica prior auth. Caller can be reached at [phone]. Thank You, Layla Del Rosario CPhT Multi Sensor Operator II [facility] ([facility]) 10/08/2024, 10:42 AM * Telephone Encounter - Molly Pinzon PHARM Tech - 10/07/2024 3:11 PM EST Patient calling to inform doctor that the patient's insurance will not pay for this medication without a completed prior authorization. Did confirm this information with the pharmacy. Pt's current insurance information is as follows: Patient name: Beata Juarez ID number: [id number] BIN number: [id number] PCN number: [id number] Group number: [id number] Subscriber name: Beata Juarez Primary or Secondary Insurance:Primary Medication: Pregabalin 225 MG Oral Capsule (Lyrica) Reason for Request: Prior auth for [facility] Pharmacy and phone number: [facility] [address] [place] [address] Rx plan and phone number: [facility] Is this a new medication for the patient? No. How did the patient obtain the medication on the lastfill? It was covered last time on this same insurance. What alternative medications does the pharmacy have in stock?: NA Thank you, Molly Pinzon CPhT Veneer Jointer Returner II [facility] ([facility]) 10/07/2024,3:11 PM * Telephone Encounter - Fani Horton OSA - 10/06/2024 9:08 AM EST Patient called to request a new prescription of Pregabalin 225 MG Oral Capsule (Lyrica) send the [facility] pharmacy. [facility] only carry the Generic brand and she doesn't want the generic brand. Patient is requesting a call when prescription is sent. documented in this encounter Plan of Treatment Upcoming Encounters Date Type Department Care Team (Late st Contact Info) Description 11/10/2024 5:00 PM EST Office Visit Family Practice [facility] [address] [place] [address] Ninfa Cruz DO [address] [place] [address] Health Maintenance Due Date Last Done Comments DISCUSS TOBACCO CESSATION (REFER TO SMARTSET #0200) 1965 O2 ASSESSMENT COMPLETED IN PAST YEAR [...] Directives occurred with: Not Discussed Care Teams Midwife Relationship Specialty Start Date End Date Ninfa Cruz DO [address] [place] [address] PCP - General Family Medicine 02/08/16 documented as of this encounter
--- OUTSIDE RECORDS SUMMARY | 2024-11-18 23:16 | External Medical Summary | Summary of Care ---
Author Name Unknown Organization [facility] Address [address] [place] [address] Phone [phone] Care Team Providers Care Art Class Model Name Role Phone Ninfa Cruz DO Primary Care Provider [phone] Reason for Visit * Reason Onset Date Comments Med Request 10/06/2024 Encounter Details Date Type Department Care Team (Late st Contact Info) Description 10/06/2024 Telephone Family Practice [facility] [address] [facility] [address] Ninfa Cruz DO [address] [facility] [place] [address] Med Request Allergies Active Allergy Reactions Criticality [...] (3) MG/3ML Inhalation Solution (Duoneb)Indicatio ns:COPD, moderate ([facility]) Inhale 3 mL via nebulizer in the morning and 3 mL at noon and 3 mL in the evening and 3 mL before bedtime. 180 mL 1 024 Active Fluticasone-Salme terol 115-21 MCG/ACT Inhalation Aerosol (Advair HFA)Indications:C OPD, group B, by GOLD 2017 classification ([facility]),Intermitten t asthma with reliever use up to [...] Diagnosed Date Food insecurity 06/23/2023 Overview: Per [facility] Protocol Severe episode of recurrent major depressive disorder, without psychotic features 06/01/2023 PTSD (post-traumatic stress disorder) 06/01/2023 Cannabis abuse 06/01/2023 Iron deficiency anemia 03/25/2023 Substance abuse 12/31/2022 Overview (01/15/2023): UDS + meth 11/23/22 [facility], new onset of paranoia and [...] noted on overnight PSG 2 [facility] Gastroesophageal reflux disease with esophagitis 03/14/2011 [...] IM 11/09/2009 Pneumococcal Conjugate Vacci ne, 20-valent ([id number]) 02/04/2023 Pneumococcal Polysaccharide PPV23 (Pneumovax) 01/17/2009 Seasonal [...] Never 06/02/2023 How often do you attend mormonism or mandaen serv ices? Never 06/02/2023 Do you belong to any clubs o r organizations such as mormonism groups, unions, fraternal or athletic groups, or [...] Recorded PHQ Adult Total Score 0 02/04/2023 [facility] - Occupational Stress Questionnaire Answer [...] No 12/22/2023 Does the household have a [facility] source [facility] income? (Household - for ages [...] Yes 06/03/2023 2:49 PM EDT Elda Peck, Validation Specialist * Do you have difficulty dressing [...] prior auth. Caller can be reached at [phone]. Thank You, Layla Del Rosario [facility] Student Financial Services Counselor II [facility] ([facility]) 10/08/2024, 10:42 AM * Telephone Encounter - Molly Pinzon PHARM Tech - 10/07/2024 3:11 PM EST Patient calling to inform doctor that the patient's insurance will not pay for this medication without a completed prior authorization. Did confirm this information with the pharmacy. Pt's current insurance information is as follows: Patient name: Beata Juarez ID number: [id number] BIN number: [id number] PCN number: [id number] Group number: [id number] Subscriber name: Beata Juarez Primary or Secondary Insurance:Primary Medication: Pregabalin 225 MG Oral Capsule (Lyrica) Reason for Request: Prior auth for brand Pharmacy and phone number: [facility] [address] [place] [address] [place] [phone] Rx plan and phone number: [facility] Is this a new medication for the patient? No. How did the patient obtain the medication on the lastfill? It was covered last time on this same insurance. What alternative medications does the pharmacy have in stock?: NA Thank you, Molly Pinzon CPhT Meal Temperer II [facility] ([facility]) 10/07/2024,3:11 PM * Telephone Encounter - Fani Horton OSA - 10/06/2024 9:08 AM EST Patient called to request a new prescription of Pregabalin 225 MG Oral Capsule (Lyrica) send the [facility] pharmacy. [facility] only carry the Generic brand and she doesn't want the generic brand. Patient is requesting a call when prescription is sent. documented in this encounter Plan of Treatment Upcoming Encounters Date Type Department Care Team (Late st Contact Info) Description 11/10/2024 5:00 PM EST Office Visit Family Practice [facility] [address] [facility] [place] [address] Ninfa Cruz, [address] [place] [address] Health Maintenance Due Date Last Done Comments DISCUSS TOBACCO CESSATION (REFER TO SMARTSET #7893) 1965 O2 ASSESSMENT COMPLETED IN PAST YEAR [...] Directives occurred with: Not Discussed Care Teams Art Class Model Relationship Specialty Start Date End Date Ninfa Cruz DO [address] [place] [address] PCP - General Family Medicine 02/08/16 documented as of this encounter
--- OUTSIDE RECORDS SUMMARY | 2024-11-18 23:16 | External Medical Summary | Summary of Care ---
Author Name Unknown Organization [facility] Address [address] [place] [address] Phone [phone] Care Team Providers Care Instrument Lens Grinder Apprentice Name Role Phone Ninfa Cruz DO Primary Care Provider [phone] Reason for Visit * Reason Onset Date Comments Med Request 10/06/2024 Encounter Details Date Type Department Care Team (Late st Contact Info) Description 10/06/2024 Telephone Family Practice [facility] [address] [facility] [address] Ninfa Cruz DO [address] [facility] [place] [address] Med Request Allergies Active Allergy Reactions Criticality [...] as of this encounter (statuses as of 10/07/2024) Medications Fexofenadine HCl 180 MG Oral Tablet [...] MG/3ML Inhalation Solution (Duoneb)Indicatio ns:COPD, moderate ([facility]) Inhale 3 mL via nebulizer in the morning and 3 mL at noon and 3 mL in the evening and 3 mL before bedtime. 180 mL 1 024 Active Fluticasone-Salme terol 115-21 MCG/ACT Inhalation Aerosol (Advair HFA)Indications:C OPD, group B, by GOLD 2017 classification ([facility]),Intermitten t asthma with reliever use [...] as of this encounter (statuses as of 10/07/2024) Active Problems Problem Noted Date Diagnosed Date Food insecurity 06/23/2023 Overview: Per [facility] Protocol Severe episode of recurrent major depressive disorder, without psychotic features 06/01/2023 PTSD (post-traumatic stress disorder) 06/01/2023 Cannabis abuse 06/01/2023 Iron deficiency anemia 03/25/2023 Substance abuse 12/31/2022 Overview (01/15/2023): UDS + meth 11/23/22 [facility], new onset of paranoia and confusion [...] as of this encounter (statuses as of 10/07/2024) Resolved Problems Problem Noted Date Diagnosed Date [...] as of this encounter (statuses as of 10/07/2024) Immunizations Name Administration Dates Next Due COVID-19, LNP-s, No Preserve , Lloyd-sucrose, Ages 12+ (Pfizer) 03/20/2022 H1N1 2009 Influenza, IM 11/09/2009 Pneumococcal Conjugate Vacci ne, 20-valent ([id number]) 02/04/2023 Pneumococcal Polysaccharide PPV23 (Pneumovax) 01/17/2009 Seasonal [...] Never 06/02/2023 How often do you attend gnosticism or congregation serv ices? Never 06/02/2023 Do you belong to any clubs o r organizations such as gnosticism groups, unions, fraternal or athletic groups, or [...] [facility] - Occupational Stress Questionnaire Answer Date [...] 12/22/2023 Does the household have a [facility] source of income? (Household - for [...] Yes 06/03/2023 2:49 PM EDT Elda Peck, Shaper And Presser * Do you have difficulty dressing or [...] encounter Miscellaneous Notes * Telephone Encounter - Molly Pinzon PHARM Tech - 10/07/2024 3:11 PM EST Patient calling to inform doctor that the patient's insurance will not pay for this medication without a completed prior authorization. Did confirm this information with the pharmacy. Pt's current insurance information is as follows: Patient name: Beata Juarez ID number: [id number] BIN number: [id number] PCN number: [id number] Group number: [id number] Subscriber name: Beata Juarez Primary or Secondary Insurance:Primary Medication: Pregabalin 225 MG Oral Capsule (Lyrica) Reason for Request: Prior auth for [facility] Pharmacy and phone number: [facility] [address] [place] [address] [place] [address] Rx plan and phone number: [facility] Is this a new medication for the patient? No. How did the patient obtain the medication on the lastfill? It was covered last time on this same insurance. What alternative medications does the pharmacy have in stock?: NA Thank you, Molly Pinzon CPhT Automotive Salesperson II [facility] ([facility]) 10/07/2024,3:11 PM * Telephone Encounter - Fani Horton OSA - 10/06/2024 9:08 AM EST Patient called to request a new prescription of Pregabalin 225 MG Oral Capsule (Lyrica) send the [facility] pharmacy. [facility] only carry the Generic brand and she doesn't want the generic brand. Patient is requesting a call when prescription is sent. documented in this encounter Plan of Treatment Upcoming Encounters Date Type Department Care Team (Late st Contact Info) Description 11/10/2024 5:00 PM EST Office Visit Family Practice [facility] [address] [place] [address] Ninfa Cruz DO [address] [place] [address] Health Maintenance Due Date Last Done Comments DISCUSS TOBACCO CESSATION (REFER TO SMARTSET #3554) 1965 O2 ASSESSMENT COMPLETED IN PAST YEAR [...] HPV/Co-Test 02/05/2028 02/04/2023 Lipid Panel 06/03/2028 06/03/2023, 0 05/2023, 02/16/2022, Additional history exists Colonoscopy 06/22/2029 [...] Directives occurred with: Not Discussed Care Teams Instrument Lens Grinder Apprentice Relationship Specialty Start Date End Date Ninfa Cruz DO [address] [place] [address] PCP - General Family Medicine 02/08/16 documented as of this encounter
--- OUTSIDE RECORDS SUMMARY | 2024-11-18 23:16 | External Medical Summary | Summary of Care ---
Author Name Unknown Organization [facility] Address [address] [facility] [place] [address] Phone [phone] Care Team Providers Care Slab Lifting Engineer Name Role Phone Ninfa Cruz DO Primary Care Provider [phone] Reason for Visit * Reason Onset Date Comments Medication Refill 10/09/2024 Encounter Details Date Type Department Care Team (Late st Contact Info) Description 10/09/2024 Refill Family Practice [facility] [address] [facility] [place] [address] Ninfa Cruz DO [address] [place] [address] Allergies Active Allergy Reactions Criticality Noted Date [...] as of this encounter (statuses as of 10/10/2024) Medications Fexofenadine HCl 180 MG Oral Tablet (GNP Allergy Relief) Take 1 Tablet by mouth daily as needed for Allergies. 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 120 Capsule 05/26/20 24 Active Nicotine 14 MG/24HR Transdermal Patch 24 Hour (Nicoderm CQ)Indications:Tob acco use disorder PLACE 1 PATCH OVER 24 HOURS TOPICALLY ON THE SKIN DAILY 28 Patch 06/09/20 24 Active Ipratropium-Albute rol 0.5-2.5 (3) MG/3ML Inhalation Solution (Duoneb)Indication s:COPD, moderate ([facility]) Inhale 3 mL via nebulizer in the morning and 3 mL at noon and 3 mL in the evening and 3 mL before bedtime. 180 mL 1 06/13/20 24 Active Fluticasone-Salmet mike 115-21 MCG/ACT Inhalation Aerosol (Advair HFA)Indications:CO PD, group B, by GOLD 2017 classification ([facility]),Intermittent asthma with reliever use up [...] necessary. 180 Capsule 1 10/06/19 25 Active Loratadine 10 MG Oral Tablet (Claritin)Indicati ons:Allergic Rhinitis Take 1 Tablet by mouth in the morning. 30 Tablet 2 10/10/19 25 Active documented as of this encounter (statuses as of 10/10/2024) Active Problems Problem Noted Date Diagnosed Date Food insecurity 06/23/2023 Overview: Per [facility] Protocol Severe episode of recurrent major depressive disorder, without psychotic features 06/01/2023 PTSD (post-traumatic stress disorder) 06/01/2023 Cannabis abuse 06/01/2023 Iron deficiency anemia 03/25/2023 Substance abuse 12/31/2022 Overview (01/15/2023): UDS + meth 11/23/22 [facility], new onset of paranoia and confusion [...] PSG 2 [facility] Gastroesophageal reflux [...] as of this encounter (statuses as of 10/10/2024) Resolved Problems Problem Noted Date Diagnosed Date [...] as of this encounter (statuses as of 10/10/2024) Immunizations Name Administration Dates Next Due COVID-19, LNP-s, No Preserve , Lloyd-sucrose, Ages 12+ (Pfizer) 03/20/2022 H1N1 2009 Influenza, IM 11/09/2009 Pneumococcal Conjugate Vacci ne, 20-valent ([id number]) 02/04/2023 Pneumococcal Polysaccharide PPV23 (Pneumovax) 01/17/2009 Seasonal [...] Never 06/02/2023 How often do you attend yazdanism or mormonism serv ices? Never 06/02/2023 Do you belong to any clubs o r organizations such as yazdanism groups, unions, fraternal or athletic groups, or [...] 02/04/2023 [facility] Occupat ional Health - Occupational [...] place to sleep or slept in a long-term (including now)? Yes 06/02/2023 Childcare Answer Date [...] 18 years and over) Not on file 04/08/202 4 Are you (or your family) veronica eless [...] Yes 06/03/2023 2:49 PM EDT Elda Peck, Care Provider * Do you have difficulty dressing or [...] Telephone Encounter - Anjana Hardin - 10/10/2024 2:15 PM ESTRefused Prescriptions: Disp Refills Vitamin B-12 1000 MCG Oral Tablet (Cyanoco*100 Ta*3 Sig: Take 1Tablet by mouth in the morning.Refused By: Jazzy HARDINon for Refusal: Duplicate Request------- documented in this encounter Plan of Treatment Upcoming Encounters Date Type Department Care Team (Late st Contact Info) Description 11/10/2024 5:00 PM EST Office Visit Family Practice [facility] [address] [place] [address] Ninfa Cruz, [address] [place] [address] Health Maintenance Due Date Last Done Comments DISCUSS TOBACCO CESSATION (REFER TO SMARTSET #[id number]) 1965 O2 ASSESSMENT COMPLETED IN PAST YEAR [...] Directives occurred with: Not Discussed Care Teams Slab Lifting Engineer Relationship Specialty Start Date End Date Ninfa Cruz DO [address] [place] [address] PCP - General Family Medicine 02/08/16 documented as of this encounter
--- OUTSIDE RECORDS SUMMARY | 2024-11-18 23:16 | External Medical Summary | Summary of Care ---
Author Name Unknown Organization [facility] Address [address] [facility] [place] [address] Phone [phone] Care Team Providers Care Program Review Director Name Role Phone Ninfa Cruz DO Primary Care Provider [phone] Reason for Visit * Reason Onset Date Comments Medication Refill 10/09/2024 Encounter Details Date Type Department Care Team (Late st Contact Info) Description 10/09/2024 Refill Family Practice [facility] [address] [facility] [place] [address] Ninfa Cruz DO [address] [place] [address] Personal history of fall; Closed fracture of one rib of left side, initial encounter Allergies Active Allergy Reactions Criticality Noted Date [...] 21 MG/24HR Transdermal Patch 24 Hour (Nicoderm CQ)Indications: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 Never 06/02/2023 Do you belong [...] Recorded PHQ Adult Total Score 0 02/04/2023 [facility] Occupat ional Health - Occupational Stress [...] place to sleep or slept in a fci (including now)? Yes 06/02/2023 Childcare Answer Date [...] Yes 06/03/2023 2:49 PM EDT Elda Peck, Band Splicer * Do you have difficulty dressing or [...] Telephone Encounter - Anjana Hardin - 10/09/2024 1:55 PM ESTRefused Prescriptions: Disp Refills Lidocaine 5 % External Patch (Lidoderm) 30 Pat*0 Sig: Place 1 Patch over 12 hours topically on the skin daily.Refused By: Maricel HARDIN for Refusal: Duplicate Request documented in this encounter Plan of Treatment Upcoming Encounters Date Type Department Care Team (Late st Contact Info) Description 11/10/2024 5:00 PM EST Office Visit Family Practice [facility] [address] [facility] [place] [address] Ninfa Cruz, [address] [place] [address] Health Maintenance Due Date Last Done Comments [...] as of this encounter Visit Diagnoses Diagnosis Personal history of fall Closed fracture of one rib of left side, initial encounter documented in this encounter Advance Directives * [...] Directives occurred with: Not Discussed Care Teams Program Review Director Relationship Specialty Start Date End Date Ninfa Cruz DO [address] [place] [address] PCP - General Family Medicine 02/08/16 documented as of this encounter
--- OUTSIDE RECORDS SUMMARY | 2024-11-18 23:17 | External Medical Summary | Summary of Care ---
Author Name Unknown Organization [facility] Address [address] [facility] [place] [address] Phone [phone] Care Team Providers Care Tube Roller Name Role Phone Val Persaud DO Primary Care Provider [phone] Reason for Visit * Reason Onset Date Comments Medication Refill 09/30/2024 Encounter Details Date Type Department Care Team (Late st Contact Info) Description 09/30/2024 Refill Family Practice [facility] [address] [place] [address] Val Persaud DO [address] [facility] [place] [address] Allergies Active Allergy Reactions Criticality Noted Date [...] as of this encounter (statuses as of 09/30/2024) Medications Fexofenadine HCl 180 MG Oral Tablet [...] 24 Active Sucralfate 1 GM/10ML Oral Suspension (Carafate)Indicat [...] 4 1:12 PM EDT 03/01/20 24 Active Prochlorperazine Maleate 10 MG Oral Tablet (Compazine) TAKE ONE TABLET BY MOUTH EVERY 6 HOURS NEEDED FOR NAUSEA 120 Tablet 2 4 11:10 AM EDT 04/05/20 24 Active Lidocaine 5 % External Patch (Lidoderm)Indicat ions:Personal history of fall,Closed fracture of one rib of left side, initial encounter Place 1 Patch over 12 hours topically on the skin daily. 30 Patch 04/12/20 24 Active Simethicone 80 MG Oral Tablet [...] meals. 90 Tablet 2 05/03/20 24 Active Fluticasone Propionate 50 MCG/ACT Nasal Suspension (Flonase)Indicati ons:Asthma Administer 2 Sprays into nostril 2 times a day as needed for Congestion. 16 g 5 05/12/20 24 Active Phenazopyridine HCl 200 MG Oral [...] 24 Active Loratadine 10 MG Oral Tablet (Claritin)Indicat [...] or chew. 90 Capsule 09/24/19 25 Active Pregabalin 225 MG Oral Capsule (Lyrica)Indicatio ns:Chronic pain syndrome Take 1 Capsule by mouth in the morning and 1 Capsule before bedtime. 180 Capsule 1 09/27/19 25 Active Vitamin B-12 1000 MCG Oral [...] morning. 90 Tablet 3 09/30/19 25 Active Levothyroxine Sodium 75 MCG Oral Tablet (Levoxyl)Indicati ons:Hypothyroidis m Take 1 Tablet by mouth daily first thing in the morning. 90 Tablet 1 05/29/20 24 025 Discontin ued(Refil l) documented as of this encounter (statuses as of 09/30/2024) Active Problems Problem Noted Date Diagnosed Date Food insecurity 06/23/2023 Overview: Per [facility] Protocol Severe episode of recurrent major depressive disorder, without psychotic features 06/01/2023 PTSD (post-traumatic stress disorder) 06/01/2023 Cannabis abuse 06/01/2023 Iron deficiency anemia 03/25/2023 Substance abuse 12/31/2022 Overview (01/15/2023): UDS + meth 11/23/22 [facility], new onset of paranoia and confusion UDS [...] noted on overnight PSG 2 [facility] Gastroesophageal reflux disease with esophagitis 03/14/2011 HTN, goal below 130/80 03/13/2011 Fibromyalgia 04/05/2010 Chronic nausea 04/02/2010 Overview (07/08/2017): ICD-10 update of inactive term Intermittent asthma with rel iever use up to twice per week without complication 01/04/2010 ANDRE (generalized anxiety disorder) 10/24/2009 Dyslipidemia 08/24/2009 Overview (08/24/2009): Per Lipid Taxonomy. Hypothyroidism 05/12/2009 documented as of this encounter (statuses as of 09/30/2024) Resolved Problems Problem Noted Date Diagnosed Date [...] as of this encounter (statuses as of 09/30/2024) Immunizations Name Administration Dates Next Due COVID-19, LNP-s, No Preserve , Lloyd-sucrose, Ages 12+ (Pfizer) 03/20/2022 H1N1 2009 Influenza, IM 11/09/2009 Pneumococcal Conjugate Vacci ne, 20-valent ([id number]) 02/04/2023 Pneumococcal Polysaccharide PPV23 (Pneumovax) 01/17/2009 Seasonal [...] Never 06/02/2023 How often do you attend yarsani or sabianism serv ices? Never 06/02/2023 Do you belong to any clubs o r organizations such as yarsani groups, unions, fraternal or athletic groups, or [...] [facility] - Occupational Stress Questionnaire Answer [...] to sleep or slept in a senior living (including now)? Yes 06/02/2023 Childcare Answer Date [...] Yes 06/03/2023 2:49 PM EDT Elda Peck, Answering Service Agent * Do you have difficulty dressing or [...] encounter Miscellaneous Notes * Telephone Encounter - Dasha Uriostegui RPh - 09/30/2024 11:49 AM ESTSigned Prescriptions: Disp Refills Levothyroxine Sodium 75 MCG Oral Tablet (L*90 Tab*3 Sig: Take 1Tablet by mouth daily first thing in the morning.Authorizing Provider: VAL PERSAUD User: DASHA URIOSTEGUI documented in this encounter Plan of Treatment Upcoming Encounters Date Type Department Care Team (Late st Contact Info) Description 11/10/2024 5:00 PM EST Office Visit Family Practice [facility] [address] [place] [address] Val Persaud DO [address] [place] [address] Health Maintenance Due Date Last Done Comments DISCUSS TOBACCO CESSATION (REFER TO SMARTSET #[id number]) 1965 O2 ASSESSMENT COMPLETED IN PAST YEAR [...] 02/16/2022, Additional history exists Colonoscopy 06/22/2029 06/22/2019, 10/0 04/2019, 01/13/2019, Additional [...] Directives occurred with: Not Discussed Care Teams Tube Roller Relationship Specialty Start Date End Date Val Persaud DO [address] [place] [address] PCP - General Family Medicine 02/08/16 documented as of this encounter
--- OUTSIDE RECORDS SUMMARY | 2024-11-18 23:17 | External Medical Summary | Summary of Care ---
Author Name Unknown Organization [facility] Address [address] [facility] [place] [address] Phone [phone] Care Team Providers Care Reel Slitter Name Role Phone Ninfa Cruz DO Primary Care Provider [phone] Reason for Visit * Reason Onset Date Comments Medication Refill 10/02/2024 Encounter Details Date Type Department Care Team (Late st Contact Info) Description 10/02/2024 Refill Family Practice [facility] [address] [place] [address] Ninfa Cruz DO [address] [facility] [place] [address] Gastroesophageal reflux disease with esophagitis without hemorrhage [...] as of this encounter (statuses as of 10/03/2024) Medications Fexofenadine HCl 180 MG Oral Tablet (GNP Allergy Relief) Take 1 Tablet by mouth daily as needed for Allergies. 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 90 Tablet 3 09/30/19 25 Active documented as of this encounter (statuses as of 10/03/2024) Active Problems Problem Noted Date Diagnosed Date Food insecurity 06/23/2023 Overview: Per [facility] Protocol Severe episode of recurrent major depressive disorder, without psychotic features 06/01/2023 PTSD (post-traumatic stress disorder) 06/01/2023 Cannabis abuse 06/01/2023 Iron deficiency anemia 03/25/2023 Substance abuse 12/31/2022 Overview (01/15/2023): UDS + meth 11/23/22 [facility], new onset of paranoia and confusion UDS [...] very minimal noted on overnight PSG 2 [facility] Gastroesophageal reflux disease with esophagitis 03/14/2011 HTN, goal below 130/80 03/13/2011 Fibromyalgia 04/05/2010 Chronic nausea 04/02/2010 Overview (07/08/2017): ICD-10 update of inactive term Intermittent asthma with rel iever use up to twice per week without complication 01/04/2010 ANDRE (generalized anxiety disorder) 10/24/2009 Dyslipidemia 08/24/2009 Overview (08/24/2009): Per Lipid Taxonomy. Hypothyroidism 05/12/2009 documented as of this encounter (statuses as of 10/03/2024) Resolved Problems Problem Noted Date Diagnosed Date [...] as of this encounter (statuses as of 10/03/2024) Immunizations Name Administration Dates Next Due COVID-19, LNP-s, No Preserve , Lloyd-sucrose, Ages 12+ (Pfizer) 03/20/2022 H1N1 2009 Influenza, IM 11/09/2009 Pneumococcal Conjugate Vacci ne, 20-valent ([id number]) 02/04/2023 Pneumococcal Polysaccharide PPV23 (Pneumovax) 01/17/2009 Seasonal [...] Never 06/02/2023 How often do you attend latter-day or uatsdin serv ices? Never 06/02/2023 Do you belong to any clubs o r organizations such as latter-day groups, unions, fraternal or athletic groups, or [...] PHQ Adult Total Score 0 02/04/2023 [facility] of Occupat ional Health [...] place to sleep or slept in a skilled nursing (including now)? Yes 06/02/2023 Childcare Answer Date [...] Yes 06/03/2023 2:49 PM EDT Elda Peck, Market Development Director * Do you have difficulty dressing [...] Notes * Telephone Encounter - Nicky Boone [facility] - 10/03/2024 9:57 AM EST Refused Prescriptions: Disp Refills Dexlansoprazole 60 MG Oral Capsule Delayed*90 Cap*1 Sig: Take 1Capsule by mouth in the morning.Refused By: [facility] Ref[facility]: Too soon-------- documented in this encounter Plan of Treatment Upcoming Encounters Date Type Department Care Team (Late st Contact Info) Description 11/10/2024 5:00 PM EST Office Visit Family Practice [facility] [address] [facility] [place] [address] Ninfa Cruz DO [address] [place] [address] Health Maintenance Due Date Last Done Comments DISCUSS TOBACCO CESSATION (REFER TO SMARTSET #[id number]) 1965 O2 ASSESSMENT COMPLETED IN PAST YEAR [...] Directives occurred with: Not Discussed Care Teams Reel Slitter Relationship Specialty Start Date End Date Ninfa Cruz DO [address] [facility] [place] [address] PCP - General Family Medicine 02/08/16 documented as of this encounter
--- OUTSIDE RECORDS SUMMARY | 2024-11-18 23:17 | External Medical Summary | Summary of Care ---
Author Name Unknown Organization [facility] Address [address] [place] [address] Phone [phone] Care Team Providers Care Fashion Styling Intern Name Role Phone Val Persaud DO Primary Care Provider [phone] Reason for Visit * Reason Onset Date Comments Medication Refill 10/02/2024 Encounter Details Date Type Department Care Team (Late st Contact Info) Description 10/02/2024 Refill Family Practice [facility] [address] [place] [address] Val Persaud DO [address] [facility] [place] [address] Allergies Active Allergy Reactions Criticality Noted Date [...] as of this encounter (statuses as of 10/04/2024) Medications Fexofenadine HCl 180 MG Oral Tablet [...] 4 1:12 PM EDT 03/01/20 24 Active Lidocaine 5 % External Patch [...] OPD, group B, by GOLD 2017 classification ([facility]),Intermitten t asthma with reliever use up to [...] NAUSEA 120 Tablet 2 10/04/19 25 Active Prochlorperazine Maleate 10 MG Oral Tablet (Compazine) TAKE ONE TABLET BY MOUTH EVERY 6 HOURS NEEDED FOR NAUSEA 120 Tablet 2 4 11:10 AM EDT 04/05/20 24 025 Discontin ued(Refil l) Fluticasone Propionate 50 MCG/ACT Nasal Suspension (Flonase)Indicati ons:Asthma Administer 2 Sprays into nostril 2 times a day as needed for Congestion. 16 g 5 05/12/20 24 025 Discontin ued(Refil l) documented as of this encounter (statuses as of 10/04/2024) Active Problems Problem Noted Date Diagnosed Date Food insecurity 06/23/2023 Overview: Per [facility] Protocol Severe episode of recurrent major depressive disorder, without psychotic features 06/01/2023 PTSD (post-traumatic stress disorder) 06/01/2023 Cannabis abuse 06/01/2023 Iron deficiency anemia 03/25/2023 Substance abuse 12/31/2022 Overview (01/15/2023): UDS + meth 11/23/22 [facility], new onset of paranoia [...] very minimal noted on overnight PSG 2 [facility] Gastroesophageal reflux disease with esophagitis 03/14/2011 HTN, goal below 130/80 03/13/2011 Fibromyalgia 04/05/2010 Chronic nausea 04/02/2010 Overview (07/08/2017): ICD-10 update of inactive term Intermittent asthma with rel iever use up to twice per week without complication 01/04/2010 ANDRE (generalized anxiety disorder) 10/24/2009 Dyslipidemia 08/24/2009 Overview (08/24/2009): Per Lipid Taxonomy. Hypothyroidism 05/12/2009 documented as of this encounter (statuses as of 10/04/2024) Resolved Problems Problem Noted Date Diagnosed Date [...] as of this encounter (statuses as of 10/04/2024) Immunizations Name Administration Dates Next Due COVID-19, LNP-s, No Preserve , Lloyd-sucrose, Ages 12+ (Pfizer) 03/20/2022 H1N1 2009 Influenza, IM 11/09/2009 Pneumococcal Conjugate Vacci ne, 20-valent ([id number]) 02/04/2023 Pneumococcal Polysaccharide PPV23 (Pneumovax) 01/17/2009 Seasonal [...] Never 06/02/2023 How often do you attend pentecostalism or methodist serv ices? Never 06/02/2023 Do you belong to any clubs o r organizations such as pentecostalism groups, unions, fraternal or athletic groups, or [...] Recorded PHQ Adult Total Score 0 02/04/2023 [facility] - Occupational Stress Questionnaire Answer Date [...] Yes 06/03/2023 2:49 PM EDT Elda Peck, Stuffed Casing Tier * Do you have difficulty dressing or [...] Telephone Encounter - Val Persaud DO - 10/04/2024 11:44 AM ESTSigned Prescriptions: Disp Refills Prochlorperazine Maleate 10 MG Oral Tablet*120 Ta*2 Sig: TAKE ONE TABLET BY MOUTH EVERY 6 HOURS NEEDED FOR NAUSEA Authorizing Provider: VAL PERSAUD * Telephone Encounter - Nicole Almanza LPN - 10/04/2024 8:13 AM ESTPending Prescriptions: Disp Refills Prochlorperazine Maleate 10 MG Oral Tablet*120 Ta*2 Sig: TAKE ONE TABLET BY MOUTH EVERY 6 HOURS NEEDED FOR NAUSEA * Telephone Encounter - Nicole Almanza LPN - 10/04/2024 8:12 AM EST Did you pend patient's preferred pharmacy and medication before forwarding?yes Pharmacy: [id number] [address] [facility] Pending Prescriptions: Disp Refills Prochlorperazine Maleate 10 MG Oral Table*120 Ta*2 Sig: TAKE ONE TABLET BY MOUTH EVERY 6 HOURS NEEDED FOR NAUSEA Last Visit: 06/24/2023 (in office), 04/23/2022 (telemedicine) Next Visit: 11/10/2024 If no future appointments scheduled, and last appointment is greater than a year ago, please schedule patient for a follow-up appointment Last date the medication was ordered: 03/25/24 Is this request for a controlled substance?No [...] * Telephone Encounter - Anjana Hardin - 10/02/2024 1:15 PM ESTPending Prescriptions: Disp Refills Prochlorperazine Maleate 10 MG Oral Tablet*120 Ta*2 Sig: TAKE ONE TABLET BY MOUTH EVERY 6 HOURS NEEDED FOR NAUSEA documented in this encounter Plan of Treatment Upcoming Encounters Date Type Department Care Team (Late st Contact Info) Description 11/10/2024 5:00 PM EST Office Visit Family Practice [facility] [address] [place] [address] Val Persaud DO [address] [place] [address] Health Maintenance Due Date Last Done Comments DISCUSS TOBACCO CESSATION (REFER TO SMARTSET #[id number]) 1965 O2 ASSESSMENT COMPLETED IN PAST YEAR [...] Directives occurred with: Not Discussed Care Teams Fashion Styling Intern Relationship Specialty Start Date End Date Val Persaud DO [address] [facility] [place] [address] PCP - General Family Medicine 02/08/16 documented as of this encounter
--- OUTSIDE RECORDS SUMMARY | 2024-11-18 23:17 | External Medical Summary | Summary of Care ---
Author Name Unknown Organization [facility] Address [address] [place] [address] Phone [phone] Care Team Providers Care Staple Side Laster Name Role Phone Val Persaud DO Primary Care Provider [phone] Reason for Visit * Reason Onset Date Comments Medication Refill 10/03/2024 Encounter Details Date Type Department Care Team (Late st Contact Info) Description 10/03/2024 Refill Family Practice [facility] [address] [place] [address] Vla Persaud DO [address] [facility] [place] [address] Allergic rhinitis, unspecified seasonality, unspecified trigger Allergies [...] morning. 90 Tablet 3 09/30/19 25 Active Fluticasone Propionate 50 MCG/ACT Nasal Suspension (Flonase)Indicati ons:Asthma Administer 2 Sprays into nostril 2 times a day as needed for Congestion. 16 g 1 10/04/19 25 Active Fluticasone Propionate 50 MCG/ACT Nasal Suspension (Flonase)Indicati ons:Asthma Administer 2 Sprays into nostril 2 times a day as needed for Congestion. 16 g 5 05/12/20 24 025 Discontin ued(Refil l) documented as of this encounter (statuses as of 10/04/2024) Active Problems Problem Noted Date Diagnosed Date Food insecurity 06/23/2023 Overview: Per [facility] Protocol Severe episode of recurrent major depressive disorder, without psychotic features 06/01/2023 PTSD (post-traumatic stress disorder) 06/01/2023 Cannabis abuse 06/01/2023 Iron deficiency anemia 03/25/2023 Substance abuse 12/31/2022 Overview (01/15/2023): UDS + meth 11/23/22 [facility], new onset of paranoia and confusion UDS [...] IM 11/09/2009 Pneumococcal Conjugate Vacci ne, 20-valent ([id number]) 02/04/2023 Pneumococcal Polysaccharide PPV23 (Pneumovax) 01/17/2009 Seasonal [...] Never 06/02/2023 How often do you attend baptism or scientologist serv ices? Never 06/02/2023 Do you belong to any clubs o r organizations such as baptism groups, unions, fraternal or athletic groups, or [...] Recorded PHQ Adult Total Score 0 02/04/2023 [facility] - Occupational Stress [...] place to sleep or slept in a snf (including now)? Yes 06/02/2023 Childcare Answer Date [...] Yes 06/03/2023 2:49 PM EDT Elda Peck, Vamp Creaser * Do you have difficulty dressing or [...] encounter Miscellaneous Notes * Telephone Encounter - Bereket Panchal RPh - 10/04/2024 10:20 AM ESTSigned Prescriptions: Disp Refills Fluticasone Propionate 50 MCG/ACT Nasal Valdez*16 g 1 Sig: Administer 2 Sprays into nostril 2 times a day as needed for Congestion.Authorizing Provider: VAL PERSAUD User: BEREKET PANCHAL documented in this encounter Plan of Treatment Upcoming Encounters Date Type Department Care Team (Late st Contact Info) Description 11/10/2024 5:00 PM EST Office Visit Family Practice [facility] [address] [place] [address] Val Persaud DO [address] [place] [address] Health Maintenance Due Date Last Done Comments DISCUSS TOBACCO CESSATION (REFER TO SMARTSET #[id number]) 1965 O2 ASSESSMENT COMPLETED IN PAST YEAR [...] Directives occurred with: Not Discussed Care Teams Staple Side Laster Relationship Specialty Start Date End Date Val Persaud DO [address] [place] [place] [id number] PCP - General Family Medicine 02/08/16 documented as of this encounter
--- OUTSIDE RECORDS SUMMARY | 2024-11-18 23:17 | External Medical Summary | Summary of Care ---
Author Name Unknown Organization [facility] Address [address] [place] [address] Phone [phone] Care Team Providers Care Wound Specialist Name Role Phone Ninfa Cruz DO Primary Care Provider [phone] Reason for Visit * Reason Onset Date Comments Medication Refill 09/30/2024 Encounter Details Date Type Department Care Team (Late st Contact Info) Description 09/30/2024 Refill Family Practice [facility] [address] [place] [address] Ninfa Cruz DO [address] 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 120 Capsule 05/26/20 24 Active Levothyroxine Sodium 75 MCG Oral Tablet (Levoxyl)Indicatio ns:Hypothyroidism Take 1 Tablet by mouth daily first thing in the morning. 90 Tablet 1 05/29/20 24 Active Loratadine 10 MG Oral Tablet [...] Muscle spasms. 30 Tablet 09/27/19 25 Active documented as of this encounter (statuses as of 09/30/2024) Active Problems Problem Noted Date Diagnosed Date Food insecurity 06/23/2023 Overview: Per [facility] Protocol Severe episode of recurrent major depressive disorder, without psychotic features 06/01/2023 PTSD (post-traumatic stress disorder) 06/01/2023 Cannabis abuse 06/01/2023 Iron deficiency anemia 03/25/2023 Substance abuse 12/31/2022 Overview (01/15/2023): UDS + meth 11/23/22 [facility], new onset of paranoia and confusion [...] IM 11/09/2009 Pneumococcal Conjugate Vacci ne, 20-valent ([id number]) 02/04/2023 Pneumococcal Polysaccharide PPV23 (Pneumovax) 01/17/2009 Seasonal [...] Never 06/02/2023 How often do you attend sabianism or voodoo serv ices? Never 06/02/2023 Do you belong to any clubs o r organizations such as sabianism groups, unions, fraternal or athletic groups, or [...] PHQ Adult Total Score 0 02/04/2023 [facility] - Occupational Stress [...] place to sleep or slept in a fpc (including now)? Yes 06/02/2023 Childcare Answer Date [...] Yes 06/03/2023 2:49 PM EDT Elda Peck, Building Construction Superintendent * Do you have difficulty dressing [...] Assessment Author No 09/01/2019 1:35 PM Columba Mrach RN documented as of this encounter Mental Status * Because of a physical, mental, or emotional condition, do you have serious difficulty concentrating, remembering, or making decisions? (5 years old or older) Answer Entry Date Author No 09/01/2019 1:35 PM Columba March RN documented in this encounter Miscellaneous Notes * Telephone Encounter - Raul Rojo [facility] - 09/30/2024 10:34 AM EST Refused Prescriptions: Disp Refills Dexlansoprazole 60 MG Oral Capsule Delayed*90 Cap*1 Sig: Take 1Capsule by mouth in the morning.Refused By: RAUL ROJO for Refusal: Duplicate Requ est documented in this encounter Plan of Treatment Upcoming Encounters Date Type Department Care Team (Late st Contact Info) Description 11/10/2024 5:00 PM EST Office Visit Family Practice [facility] [address] [facility] [place] [address] Ninfa Cruz, [address] [facility] [place] [address] Health Maintenance Due Date Last Done Comments DISCUSS TOBACCO CESSATION (REFER TO SMARTSET #[id number]) 1965 O2 ASSESSMENT COMPLETED IN PAST YEAR [...] Directives occurred with: Not Discussed Care Teams Wound Specialist Relationship Specialty Start Date End Date Ninfa Cruz DO [address] [facility] [place] [address] PCP - General Family Medicine 02/08/16 documented as of this encounter
--- OUTSIDE RECORDS SUMMARY | 2024-11-18 23:17 | External Medical Summary | Summary of Care ---
Author Name Unknown Organization [facility] Address [address] [facility] [address] Phone [phone] Care Team Providers Care Parcel Post Weigher Name Role Phone Ninfa Cruz DO Primary Care Provider [phone] Reason for Visit * Reason Onset Date Comments Med Request 10/06/2024 Encounter Details Date Type Department Care Team (Late st Contact Info) Description 10/06/2024 Telephone Family Practice [facility] [address] [facility] [address] Ninfa Cruz DO [address] [facility] [place] [address] Med Request Allergies Active Allergy Reactions Criticality [...] as of this encounter (statuses as of 10/06/2024) Medications Fexofenadine HCl 180 MG Oral Tablet [...] MG/3ML Inhalation Solution (Duoneb)Indicatio ns:COPD, moderate ([facility]) Inhale 3 mL via nebulizer in the morning and 3 mL at noon and 3 mL in the evening and 3 mL before bedtime. 180 mL 1 024 Active Fluticasone-Salme terol 115-21 MCG/ACT Inhalation Aerosol (Advair HFA)Indications:C OPD, group B, by GOLD 2017 classification ([facility]),Intermitten t asthma with reliever [...] as of this encounter (statuses as of 10/06/2024) Active Problems Problem Noted Date Diagnosed Date Food insecurity 06/23/2023 Overview: Per [facility] Protocol Severe episode of recurrent major depressive disorder, without psychotic features 06/01/2023 PTSD (post-traumatic stress disorder) 06/01/2023 Cannabis abuse 06/01/2023 Iron deficiency anemia 03/25/2023 Substance abuse 12/31/2022 Overview (01/15/2023): UDS + meth 11/23/22 [facility], new onset of paranoia and confusion [...] as of this encounter (statuses as of 10/06/2024) Resolved Problems Problem Noted Date Diagnosed Date [...] as of this encounter (statuses as of 10/06/2024) Immunizations Name Administration Dates Next Due COVID-19, LNP-s, No Preserve , Lloyd-sucrose, Ages 12+ (Pfizer) 03/20/2022 H1N1 2009 Influenza, IM 11/09/2009 Pneumococcal Conjugate Vacci ne, 20-valent ([id number]) 02/04/2023 Pneumococcal Polysaccharide PPV23 (Pneumovax) 01/17/2009 Seasonal [...] How often do you attend muslim or holiness serv ices? Never 06/02/2023 Do [...] Score 0 02/04/2023 [facility] - Occupational Stress Questionnaire Answer [...] No 12/22/2023 Does the household have a [facility] hospital[facility] source of income? (Household - for [...] 06/03/2023 2:49 PM EDT Elda Peck, Fire Hazard Inspector * Do you have difficulty dressing or [...] encounter Miscellaneous Notes * Telephone Encounter - Fani Horton OSA - 10/06/2024 9:08 AM EST Patient called to request a new prescription of Pregabalin 225 MG Oral Capsule (Lyrica) send the [facility] pharmacy. Patient stated that [facility] in [place] only carry the Generic brand and she doesn't want the generic brand. Patient is requesting a call when prescription is sent. documented in this encounter Plan of Treatment Upcoming Encounters Date Type Department Care Team (Late st Contact Info) Description 11/10/2024 5:00 PM EST Office Visit Family Practice [facility] [address] [place] [address] Ninfa Cruz DO [address] [place] [address] Health Maintenance Due Date Last Done Comments DISCUSS TOBACCO CESSATION (REFER TO SMARTSET #[id number]) 1965 O2 ASSESSMENT COMPLETED IN PAST YEAR [...] Directives occurred with: Not Discussed Care Teams Parcel Post Weigher Relationship Specialty Start Date End Date Ninfa Cruz DO [address] [place] [address] PCP - General Family Medicine 02/08/16 documented as of this encounter
--- OUTSIDE RECORDS SUMMARY | 2024-11-18 23:17 | External Medical Summary | Summary of Care ---
Author Name Unknown Organization [facility] Address [address] [place] [address] Phone [phone] Care Team Providers Care Display Mechanic Name Role Phone Ninfa Cruz DO Primary Care Provider [phone] Reason for Visit * Reason Onset Date Comments Medication Refill 09/27/2024 Encounter Details Date Type Department Care Team (Late st Contact Info) Description 09/27/2024 Refill Family Practice [facility] [address] [place] [address] Ninfa Cruz DO [address] [facility] [place] [address] Allergies Active Allergy Reactions Criticality Noted Date [...] as of this encounter (statuses as of 09/28/2024) Medications Fexofenadine HCl 180 MG Oral Tablet (GNP Allergy Relief) Take 1 Tablet by mouth daily as needed for Allergies. 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 90 Capsule 09/24/19 25 Active Lyrica 225 MG Oral CapsuleIndications :Chronic pain syndrome Take 1 Capsule by mouth [...] as of this encounter (statuses as of 09/28/2024) Active Problems Problem Noted Date Diagnosed Date Food insecurity 06/23/2023 Overview: Per [facility] Protocol Severe episode of recurrent major depressive disorder, without psychotic features 06/01/2023 PTSD (post-traumatic stress disorder) 06/01/2023 Cannabis abuse 06/01/2023 Iron deficiency anemia 03/25/2023 Substance abuse 12/31/2022 Overview (01/15/2023): UDS + meth 11/23/22 [facility], new onset of paranoia and confusion UDS [...] very minimal noted on overnight PSG 2 [facility] Gastroesophageal reflux disease with esophagitis 03/14/2011 HTN, goal below 130/80 03/13/2011 Fibromyalgia 04/05/2010 Chronic nausea 04/02/2010 Overview (07/08/2017): ICD-10 update of inactive term Intermittent asthma with rel iever use up to twice per week without complication 01/04/2010 ANDRE (generalized anxiety disorder) 10/24/2009 Dyslipidemia 08/24/2009 Overview (08/24/2009): Per Lipid Taxonomy. Hypothyroidism 05/12/2009 documented as of this encounter (statuses as of 09/28/2024) Resolved Problems Problem Noted Date Diagnosed Date [...] as of this encounter (statuses as of 09/28/2024) Immunizations Name Administration Dates Next Due COVID-19, LNP-s, No Preserve , Lloyd-sucrose, Ages 12+ (Pfizer) 03/20/2022 H1N1 2009 Influenza, IM 11/09/2009 Pneumococcal Conjugate Vacci ne, 20-valent ([id number]) 02/04/2023 Pneumococcal Polysaccharide PPV23 (Pneumovax) 01/17/2009 Seasonal [...] Never 06/02/2023 How often do you attend shinto or jehovah's witness serv ices? Never 06/02/2023 Do you belong to any clubs o r organizations such as shinto groups, unions, fraternal or athletic groups, or [...] Yes 06/03/2023 2:49 PM EDT Elda Peck, Reactor Technician * Do you have difficulty dressing [...] * Telephone Encounter - Anjana Hardin - 09/28/2024 4:20 AM ESTRefused Prescriptions: Disp Refills Vitamin B-12 1000 MCG Oral Tablet (Cyanoco*100 Ta*3 Sig: Take 1Tablet by mouth in the morning.Refused By: CARMELO HARDINeason for Refusal: Duplicate Request------- documented in this encounter Plan of Treatment Upcoming Encounters Date Type Department Care Team (Late st Contact Info) Description 11/10/2024 5:00 PM EST Office Visit Family Practice [facility] [address] [place] [address] Ninfa Cruz DO [address] [place] [address] Health Maintenance Due Date Last Done Comments DISCUSS TOBACCO CESSATION (REFER TO SMARTSET #[id number]) 1965 O2 ASSESSMENT COMPLETED IN PAST YEAR [...] Directives occurred with: Not Discussed Care Teams Display Mechanic Relationship Specialty Start Date End Date Ninfa Cruz DO [address] [place] [address] PCP - General Family Medicine 02/08/16 documented as of this encounter
--- OUTSIDE RECORDS SUMMARY | 2024-11-18 23:17 | External Medical Summary | Summary of Care ---
Author Name Unknown Organization [facility] Address [address] [facility] [place] [address] Phone [phone] Care Team Providers Care Electronic Engraver Name Role Phone Val Persaud DO Primary Care Provider [phone] Reason for Visit * Reason Onset Date Comments Medication Refill 09/26/2024 Encounter Details Date Type Department Care Team (Late st Contact Info) Description 09/26/2024 Refill Family Practice [facility] [address] [place] [address] Val Persaud DO [address] [facility] [place] [address] Allergies Active Allergy Reactions Criticality Noted Date [...] as of this encounter (statuses as of 09/27/2024) Medications Fexofenadine HCl 180 MG Oral Tablet [...] 09/24/19 25 Active Lyrica 225 MG Oral CapsuleIndication s:Chronic pain syndrome Take 1 Capsule by mouth in the morning and 1 Capsule before bedtime. 180 Capsule 1 09/27/19 25 Active Vitamin B-12 1000 MCG Oral Tablet (Cyanocobalamin)I ndications:Vitami n Deficiency Prophylaxis Take 1 Tablet by mouth in the morning. 100 Tablet 3 09/27/19 25 Active Vitamin B-12 1000 MCG Oral Tablet (Cyanocobalamin)I ndications:Vitami n Deficiency Prophylaxis Take 1 Tablet by mouth in the morning. 100 Tablet 3 4 9:26 AM EDT 09/23/19 24 025 Discontin ued(Refil l) Methocarbamol 500 MG Oral Tablet (Robamol) Take 1 Tablet by mouth 3 times a day as needed for Muscle spasms. 30 Tablet 07/28/20 24 025 Discontin ued(Refil l) documented as of this encounter (statuses as of 09/27/2024) Active Problems Problem Noted Date Diagnosed Date Food insecurity 06/23/2023 Overview: Per [facility] Protocol Severe episode of recurrent major depressive disorder, without psychotic features 06/01/2023 PTSD (post-traumatic stress disorder) 06/01/2023 Cannabis abuse 06/01/2023 Iron deficiency anemia 03/25/2023 Substance abuse 12/31/2022 Overview (01/15/2023): UDS + meth 11/23/22 [facility], new onset of paranoia and confusion UDS [...] as of this encounter (statuses as of 09/27/2024) Resolved Problems Problem Noted Date Diagnosed Date [...] as of this encounter (statuses as of 09/27/2024) Immunizations Name Administration Dates Next Due COVID-19, LNP-s, No Preserve , Lloyd-sucrose, Ages 12+ (Pfizer) 03/20/2022 H1N1 2009 Influenza, IM 11/09/2009 Pneumococcal Conjugate Vacci ne, 20-valent ([id number]) 02/04/2023 Pneumococcal Polysaccharide PPV23 (Pneumovax) 01/17/2009 Seasonal [...] Never 06/02/2023 How often do you attend mandaeism or faith serv ices? Never 06/02/2023 Do you belong to any clubs o r organizations such as mandaeism groups, unions, fraternal or athletic groups, or [...] Recorded PHQ Adult Total Score 0 02/04/2023 [facility] - Occupational Stress Questionnaire Answer Date [...] Yes 06/03/2023 2:49 PM EDT Elda Peck, Telegraphic Instrument Supervisor * Do you have difficulty dressing or [...] Telephone Encounter - Val Persaud DO - 09/27/2024 11:36 AM ESTSigned Prescriptions: Disp Refills Vitamin B-12 1000 MCG Oral Tablet (Cyanoco*100 Ta*3 Sig: Take 1 Tablet by mouth in the morning. Authorizing Provider: VAL PERSAUD * Telephone Encounter - Juana Salamanca LPN - 09/27/2024 11:28 AM ESTPending Prescriptions: Disp Refills Vitamin B-12 1000 MCG Oral Tablet (Cyanoco*100 Ta*3 Sig: Take 1 Tablet by mouth in the morning. * Telephone Encounter - Anjana Hardin - 09/26/2024 1:52 PM ESTPending Prescriptions: Disp Refills Vitamin B-12 1000 MCG Oral Tablet (Cyanoco*100 Ta*3 Sig: Take 1Tablet by mouth in the morning. documented in this encounter Plan of Treatment Upcoming Encounters Date Type Department Care Team (Late st Contact Info) Description 11/10/2024 5:00 PM EST Office Visit Family Practice [facility] [address] [place] [address] Val Persaud DO [address] [place] [address] Health Maintenance Due Date Last Done Comments DISCUSS TOBACCO CESSATION (REFER TO SMARTSET #[id number]) 1965 O2 ASSESSMENT COMPLETED IN PAST YEAR [...] Directives occurred with: Not Discussed Care Teams Electronic Engraver Relationship Specialty Start Date End Date Val Persaud DO [address] [place] [address] PCP - General Family Medicine 02/08/16 documented as of this encounter
--- OUTSIDE RECORDS SUMMARY | 2024-11-18 23:18 | External Medical Summary | Summary of Care ---
Author Name Unknown Organization [facility] Address [address] [facility] [place] [address] Phone [phone] Care Team Providers Care Crystal Syrup Maker Name Role Phone Val Persaud DO Primary Care Provider [phone] Encounter Details Date Type Department Care Team (Late st Contact Info) Description 09/23/2024 Refill Family Practice [facility] [address] [facility] [place] [address] Val Persaud DO [address] [place] [address] Chronic pain syndrome Allergies Active Allergy Reactions [...] as of this encounter (statuses as of 09/23/2024) Medications Fexofenadine HCl 180 MG Oral Tablet [...] 3 11:13 AM EST 07/31/20 23 Active Vitamin B-12 1000 MCG Oral Tablet (Cyanocobalamin)I ndications:Vitami n Deficiency Prophylaxis Take 1 Tablet by mouth in the morning. 100 Tablet 3 4 9:26 AM EDT 09/23/19 24 Active Nicotine Polacrilex 2 MG Mouth/Throat Gum [...] meals. 90 Tablet 2 05/03/20 24 Active Venlafaxine HCl ER 75 MG Oral Capsule Extended Release 24 Hour (Effexor XR)Indications:Mo derate episode of recurrent major depressive disorder (HCC) Take 1 Capsule by mouth in the morning. Do not cut, crush or chew. 90 Capsule 1 4 1:29 PM EST 05/06/20 24 Active Fluticasone Propionate 50 MCG/ACT Nasal [...] B, by GOLD 2017 classification ([facility]),Intermitten t asthma with reliever use up to [...] morning. 90 Tablet 1 07/23/20 24 Active Methocarbamol 500 MG Oral Tablet (Robamol) Take 1 Tablet by mouth 3 times a day as needed for Muscle spasms. 30 Tablet 07/28/20 24 Active Bismuth Subsalicylate 262 MG/15ML Oral [...] every 6 hours as needed for Fever >38C(100.5F). 30 Tablet 1 09/03/20 24 Active Ondansetron [...] for Anxiety. 30 Tablet 09/17/19 25 Active Lyrica 225 MG Oral CapsuleIndication s:Chronic pain syndrome Take 1 Capsule by mouth in the morning and 1 Capsule before bedtime. Patient requesting brand name only.. 180 Capsule 1 09/23/19 25 Active Pregabalin 225 MG Oral Capsule (Lyrica)Indicatio ns:Chronic pain syndrome Take 1 Capsule by mouth in the morning and 1 Capsule before bedtime. 180 Capsule 3 09/20/19 25 025 Discontin ued(Refil l) documented as of this encounter (statuses as of 09/23/2024) Active Problems Problem Noted Date Diagnosed Date Food insecurity 06/23/2023 Overview: Per [facility] Protocol Severe episode of recurrent major depressive disorder, without psychotic features 06/01/2023 PTSD (post-traumatic stress disorder) 06/01/2023 Cannabis abuse 06/01/2023 Iron deficiency anemia 03/25/2023 Substance abuse 12/31/2022 Overview (01/15/2023): UDS + meth 11/23/22 [facility], new onset of paranoia and [...] very minimal noted on overnight PSG 2 [facility] Gastroesophageal reflux disease with esophagitis 03/14/2011 HTN, goal below 130/80 03/13/2011 Fibromyalgia 04/05/2010 Chronic nausea 04/02/2010 Overview (07/08/2017): ICD-10 update of inactive term Intermittent asthma with rel iever use up to twice per week without complication 01/04/2010 ANDRE (generalized anxiety disorder) 10/24/2009 Dyslipidemia 08/24/2009 Overview (08/24/2009): Per Lipid Taxonomy. Hypothyroidism 05/12/2009 documented as of this encounter (statuses as of 09/23/2024) Resolved Problems Problem Noted Date Diagnosed Date [...] as of this encounter (statuses as of 09/23/2024) Immunizations Name Administration Dates Next Due COVID-19, LNP-s, No Preserve , Lloyd-sucrose, Ages 12+ (Pfizer) 03/20/2022 H1N1 2009 Influenza, IM 11/09/2009 Pneumococcal Conjugate Vacci ne, 20-valent ([id number]) 02/04/2023 Pneumococcal Polysaccharide PPV23 (Pneumovax) 01/17/2009 Seasonal [...] Never 06/02/2023 How often do you attend judaism or orthodox serv ices? Never 06/02/2023 Do you belong to any clubs o r organizations such as judaism groups, unions, fraternal or athletic groups, or [...] Score 0 02/04/2023 [facility] - Occupational Stress Questionnaire Answer Date Recorded [...] Assessment Author Yes 06/03/2023 2:49 PM EDT Liv, C harles E, Solutions Development Analyst * Do you have difficulty dressing or [...] Telephone Encounter - Val Persaud DO - 09/23/2024 3:11 PM ESTSigned Prescriptions: Disp Refills Lyrica 225 MG Oral Capsule 180 Ca*1 Sig: Take 1 Capsule by mouthin the morning and 1 Capsule before bedtime. Patient requesting brand name only..Authorizing Provider: VAL PERSAUD * Telephone Encounter - Vickie Solis LPN - 09/23/2024 12:55 PM EST Patient is calling. She found out she was given generic lyrica. This doesn't work for her. She is having pain and figured out why. The generic doesn't work and she needs brand name only. Script pended for brand name only as requested to [facility]. Pending Prescriptions: Disp Refills Lyrica 225 MG Oral Capsule 180 Ca*1 Sig: Take 1 Capsule by mouth in the morning and 1 Capsule before bedtime. Patient requesting brand name only.. Last Visit: 06/24/2023 (in office), 04/23/2022 (telemedicine) Next Visit: 11/10/2024 Last date the medication was ordered: 09/20/24 Patient Active Problem List Diagnosis Hypothyroidism Dyslipidemia ANDRE (generalized anxiety disorder) Intermittent asthma with reliever use up to twice per week without complication Chronic nausea Fibromyalgia HTN, goal below 130/80 Gastroesophageal reflux disease with esophagitis Nocturnal hypoxemia Elevation of level of transaminase or lactic acid dehydrogenase (LDH) Tobacco use disorder Moderate episode of recurrent major depressive disorder (HCC) History of Clostridioides difficile infection Ovarian cyst Fibroids, intramural COPD, group B, by GOLD 2017 classification ([facility]) Substance abuse ([facility]) Iron deficiency anemia Severe episode of recurrent major depressive disorder, without psychotic features ([facility]) PTSD (post-traumatic stress disorder) Cannabis abuse Food insecurity Labs: Lab Results Component Value Date/Time CREATININE - [facility] 0.7 06/01/2023 03:19 PM CREATININE - [facility] 0.8 04/20/2020 12:21 PM CREATININE SORAYA - [facility] 25 02/04/2023 12:29 PM CREATININE, RANDOM URINE - [facility] 13 01/03/2022 12:05 PM Lab Results Component Value Date/Time POTASSIUM - [facility] 4.3 06/01/2023 03:19 PM POTASSIUM - [facility] 3.9 04/20/2020 12:21 PM Lab Results Component Value Date/Time TSH - [facility] 0.44 07/23/2024 01:42 PM TSH - [facility] 1.85 03/24/2020 12:18 PM Lab Results Component Value Date/Time LDL (CALCULATED)-[facility] 77 11/21/2022 12:00 AM LDL (CALCULATED)-[facility]IDE LAB 73 01/30/2016 12:00 AM LDL CHOLESTEROL (CALCULATED) - [facility] 114 06/03/2023 06:00 AM LDL CHOLESTEROL (CALCULATED) - [facility] 125 02/16/2022 12:45 PM LDL CHOLESTEROL (CALCULATED) - [facility] UNINTERPRETABLE RESULT 02/19/2019 10:16 AM LDL CHOLESTEROL (CALCULATED) - [facility] 97 10/15/2017 11:26 AM LDL CHOLESTEROL (DIRECT MEASURE) - [facility] 206 (H) 03/24/2020 12:18 PM LDL CHOLESTEROL (DIRECT MEASURE) - [facility] 182 (H) 02/19/2019 10:16 AM Lab Results Component Value Date/Time ALT - [facility] 15 02/04/2023 12:29 PM ALT - [facility] 96 (H) 05/19/2020 08:32 AM ALT-OUTSIDE LAB 45 05/23/2016 12:00 AM Hemoglobin AIC Results: Lab Results Component Value Date/Time HEMOGLOBIN A1C - [facility] 5.5 02/04/2023 12:29 PM HEMOGLOBIN A1C - [facility] 5.4 12/20/2019 01:23 PM documented in this encounter Plan of Treatment Upcoming Encounters Date Type Department Care Team (Late st Contact Info) Description 11/10/2024 5:00 PM EST Office Visit Family Practice [facility] [address] [place] [address] Val Persaud DO [address] [place] [address] Health Maintenance Due Date Last Done Comments DISCUSS TOBACCO CESSATION (REFER TO SMARTSET #4715) 1965 O2 ASSESSMENT COMPLETED IN PAST YEAR [...] Directives occurred with: Not Discussed Care Teams Crystal Syrup Maker Relationship Specialty Start Date End Date Val Persaud DO [address] [place] [address] PCP - General Family Medicine 02/08/16 documented as of this encounter
--- OUTSIDE RECORDS SUMMARY | 2024-11-18 23:18 | External Medical Summary | Summary of Care ---
Author Name Unknown Organization [facility] Address [address] [place] [facility] [place] [address] Phone [phone] Care Team Providers Care Partnership Development Manager Name Role Phone Ninfa Cruz DO Primary Care Provider [phone] Reason for Visit * Reason Onset Date Comments Medication Refill 09/19/2024 Encounter Details Date Type Department Care Team (Late st Contact Info) Description 09/19/2024 Refill Family Practice [facility] [address] [place] [address] Ninfa Cruz DO [address] [facility] [place] [address] Allergies Active Allergy Reactions Criticality Noted Date [...] as of this encounter (statuses as of 09/20/2024) Medications Fexofenadine HCl 180 MG Oral Tablet (GNP Allergy Relief) Take 1 Tablet by mouth daily as needed for Allergies. 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 473 mL 1 09/09/20 24 Active Pregabalin 225 MG Oral Capsule (Lyrica)Indication s:Chronic pain syndrome Take 1 Capsule by mouth in the morning and 1 Capsule before bedtime. 180 Capsule 3 09/09/20 24 Active QUEtiapine Fumarate 25 MG Oral Tablet (SEROquel)Indicati ons:Anxiety Take 1 Tablet by mouth every 8 hours as needed for Anxiety. 30 Tablet 09/17/19 25 Active documented as of this encounter (statuses as of 09/20/2024) Active Problems Problem Noted Date Diagnosed Date Food insecurity 06/23/2023 Overview: Per [facility] Protocol Severe episode of recurrent major depressive disorder, without psychotic features 06/01/2023 PTSD (post-traumatic stress disorder) 06/01/2023 Cannabis abuse 06/01/2023 Iron deficiency anemia 03/25/2023 Substance abuse 12/31/2022 Overview (01/15/2023): UDS + meth 11/23/22 [facility], new onset of paranoia and confusion [...] as of this encounter (statuses as of 09/20/2024) Resolved Problems Problem Noted Date Diagnosed Date [...] as of this encounter (statuses as of 09/20/2024) Immunizations Name Administration Dates Next Due COVID-19, LNP-s, No Preserve , Lloyd-sucrose, Ages 12+ (Pfizer) 03/20/2022 H1N1 2009 Influenza, IM 11/09/2009 Pneumococcal Conjugate Vacci ne, 20-valent ([id number]) 02/04/2023 Pneumococcal Polysaccharide PPV23 (Pneumovax) 01/17/2009 Seasonal [...] Never 06/02/2023 How often do you attend nondenominational or amish serv ices? Never 06/02/2023 Do you belong to any clubs o r organizations such as nondenominational groups, unions, fraternal or athletic groups, or [...] Adult Total Score 0 02/04/2023 [facility] - Occupational Stress Questionnaire Answer [...] Assessment Author Yes 06/03/2023 2:49 PM Elda Bowles, Track Laying Equipment Operator * Do you have difficulty dressing [...] 11/10/2024 5:00 PM EST Office Visit Family [facility] [address] [place] [address] Ninfa Cruz DO [address] [place] [address] Health Maintenance Due Date Last Done Comments DISCUSS TOBACCO CESSATION (REFER TO SMARTSET #[id number]) 1965 O2 ASSESSMENT COMPLETED IN PAST YEAR [...] Directives occurred with: Not Discussed Care Teams Partnership Development Manager Relationship Specialty Start Date End Date Ninfa Cruz DO [address] [place] [address] PCP - General Family Medicine 02/08/16 documented as of this encounter
--- OUTSIDE RECORDS SUMMARY | 2024-11-18 23:18 | External Medical Summary | Summary of Care ---
Author Name Unknown Organization [facility] Address [address] [facility] [place] [address] Phone [phone] Care Team Providers Care Grand Scribe Name Role Phone Val Persaud DO Primary Care Provider [phone] Reason for Visit * Reason Onset Date Comments Medication Refill 09/24/2024 Encounter Details Date Type Department Care Team (Late st Contact Info) Description 09/23/2024 Refill Family Practice [facility] [address] [facility] [address] Val Persaud DO [address] [place] [address] Chronic pain syndrome Allergies Active Allergy Reactions [...] as of this encounter (statuses as of 09/24/2024) Medications Fexofenadine HCl 180 MG Oral Tablet [...] 1 Capsule before bedtime. 180 Capsule 1 09/23/19 25 Active Venlafaxine HCl ER 75 MG Oral Capsule Extended Release 24 Hour (Effexor XR)Indications:Mo derate episode of recurrent major depressive disorder (HCC) Take 1 Capsule by mouth in the morning. Do not cut, crush or chew. 90 Capsule 1 4 1:29 PM EST 05/06/20 24 025 Discontin ued(Refil l) Pregabalin 225 MG Oral Capsule (Lyrica)Indicatio ns:Chronic pain syndrome Take 1 Capsule by mouth in the morning and 1 Capsule before bedtime. 180 Capsule 3 09/20/19 25 025 Discontin ued(Refil l) documented as of this encounter (statuses as of 09/24/2024) Active Problems Problem Noted Date Diagnosed Date Food insecurity 06/23/2023 Overview: Per [facility] Protocol Severe episode of recurrent major depressive disorder, without psychotic features 06/01/2023 PTSD (post-traumatic stress disorder) 06/01/2023 Cannabis abuse 06/01/2023 Iron deficiency anemia 03/25/2023 Substance abuse 12/31/2022 Overview (01/15/2023): UDS + meth 11/23/22 [facility], new onset of paranoia and [...] on overnight PSG 2 [facility] Gastroesophageal reflux disease with esophagitis 03/14/2011 HTN, goal below 130/80 03/13/2011 Fibromyalgia 04/05/2010 Chronic nausea 04/02/2010 Overview (07/08/2017): ICD-10 update of inactive term Intermittent asthma with rel iever use up to twice per week without complication 01/04/2010 ANDRE (generalized anxiety disorder) 10/24/2009 Dyslipidemia 08/24/2009 Overview (08/24/2009): Per Lipid Taxonomy. Hypothyroidism 05/12/2009 documented as of this encounter (statuses as of 09/24/2024) Resolved Problems Problem Noted Date Diagnosed Date [...] as of this encounter (statuses as of 09/24/2024) Immunizations Name Administration Dates Next Due COVID-19, LNP-s, No Preserve , Lloyd-sucrose, Ages 12+ (Pfizer) 03/20/2022 H1N1 2009 Influenza, IM 11/09/2009 Pneumococcal Conjugate Vacci ne, 20-valent ([id number]) 02/04/2023 Pneumococcal Polysaccharide PPV23 (Pneumovax) 01/17/2009 Seasonal [...] How often do you attend yarsani or confucianism serv ices? Never 06/02/2023 Do you belong [...] Recorded PHQ Adult Total Score 0 02/04/2023 [facility] - Occupational [...] No 12/22/2023 Does the household have a apex medical centerr source of income? (Household - for ages [...] Assessment Author No 09/01/2019 1:35 PM Columba Macrh RN * Are you blind or do you have serious difficulty seeing, even when wearing glasses? Answer Date of Assessment Author No 09/01/2019 1:35 PM Columba March RN * Does this person have serious difficulty walking or climbing stairs? Answer Date of Assessment Author Yes 06/03/2023 2:49 PM EDT Elda Peck, Drum Handler * Do you have difficulty dressing or [...] encounter Miscellaneous Notes * Addendum Note - Gregg Tatum LPN - 09/24/2024 5:00 PM ESTAddended by: GREGG TATUM on: 09/24/2024 05:00 PM Modules accepted: Orders * Telephone Encounter - Gregg Tatum LPN - 09/24/2024 4:57 PM EST Patient returning call today to check on Lyrica refill. Made patient aware Lyrica refilled on 09/23 and sent via [facility] order per request. She states she has never used mail order and wants sent to [facility] and they mail it out to her. Pended new script. * Telephone Encounter - Val Persaud DO [...] for brand name only as requested to [facility]. Pending Prescriptions: Disp Refills Lyrica [...] COPD, group B, by GOLD 2017 classification (HCC) Substance abuse (HCC) Iron deficiency anemia Severe episode of recurrent major depressive disorder, without psychotic features (HCC) PTSD (post-traumatic stress disorder) Cannabis abuse Food [...] 11/10/2024 5:00 PM EST Office Visit Family [facility] [address] [place] [address] Val Persaud DO [address] [place] [address] Health Maintenance Due Date Last Done Comments DISCUSS TOBACCO CESSATION (REFER TO SMARTSET #[id number]) 1965 O2 ASSESSMENT COMPLETED IN PAST YEAR [...] Directives occurred with: Not Discussed Care Teams Grand Scribe Relationship Specialty Start Date End Date Val Persaud DO [address] [place] [address] PCP - General Family Medicine 02/08/16 documented as of this encounter
--- OUTSIDE RECORDS SUMMARY | 2024-11-18 23:18 | External Medical Summary | Summary of Care ---
Author Name Unknown Organization [facility] Address [address] [place] [facility] [place] [address] Phone [phone] Care Team Providers Care Manager Project Name Role Phone Ninfa Cruz DO Primary Care Provider [phone] Reason for Visit * Reason Onset Date Comments Medication Refill 09/17/2024 Encounter Details Date Type Department Care Team (Late st Contact Info) Description 09/17/2024 Refill Family Practice [facility] [address] [place] [address] Ninfa Cruz DO [address] [facility] [place] [address] Allergies Active Allergy Reactions Criticality Noted Date [...] 21 MG/24HR Transdermal Patch 24 Hour (Nicoderm CQ)Indications: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 Never 06/02/2023 Do you belong [...] Recorded PHQ Adult Total Score 0 02/04/2023 [facility] - Occupational Stress Questionnaire [...] Author Yes 06/03/2023 2:49 PM Elda Bowles, Tire Retreader * Do you have difficulty dressing or [...] encounter Miscellaneous Notes * Telephone Encounter - Thomas Carrizales [facility] - 09/20/2024 12:21 PM ESTRefused Prescriptions: Disp Refills Levothyroxine Sodium 75 MCG Oral Tablet (L*90 Tab*1 Sig: Take 1Tablet by mouth daily first thing in the morning.Refused By: THOMAS CARRIZALES LReason for Refusal: Too soon documented in this encounter Plan of Treatment Upcoming Encounters Date Type Department Care Team (Late st Contact Info) Description 11/10/2024 5:00 PM EST Office Visit Family Practice [facility] [address] [facility] [place] [address] Ninfa Cruz DO [address] [facility] [place] [address] Health Maintenance Due Date Last Done Comments DISCUSS TOBACCO CESSATION (REFER TO SMARTSET #[id number]) 1965 O2 ASSESSMENT COMPLETED IN PAST YEAR [...] occurred with: Not Discussed Care Teams Manager Project Relationship Specialty Start Date End Date Ninfa Cruz DO [address] [place] [address] PCP - General Family Medicine 02/08/16 documented as of this encounter
--- OUTSIDE RECORDS SUMMARY | 2024-11-18 23:18 | External Medical Summary | Summary of Care ---
Author Name Unknown Organization [facility] Address [address] [place] [address] Phone [phone] Care Team Providers Care Director Airport Operations Name Role Phone Val Persaud DO Primary Care Provider [phone] Reason for Visit * Reason Comments Medication Refill Encounter Details Date Type Department Care Team ([facility] st Contact Info) Description 09/23/2024 Refill Family Practice [facility] [address] [facility] [place] [address] Val Persaud DO [address] [place] [address] Encounter for long-term (current) use of medications*; Moderate episode of recurrent major depressive disorder [...] (3) MG/3ML Inhalation Solution (Duoneb)Indicatio ns:COPD, moderate ([facility]) Inhale 3 mL via nebulizer in the morning and 3 mL at noon and 3 mL in the evening and 3 mL before bedtime. 180 mL 1 06/13/20 24 Active Fluticasone-Salme terol 115-21 MCG/ACT Inhalation Aerosol (Advair HFA)Indications:C OPD, group B, by GOLD 2017 classification ([facility]),Intermitten t asthma with reliever use up to [...] only.. 180 Capsule 1 09/23/19 25 Active Venlafaxine HCl ER 75 MG Oral Capsule Extended Release 24 Hour (Effexor XR)Indications:Mo derate episode of recurrent major depressive disorder (HCC) Take 1 Capsule by mouth in the morning. Do not cut, crush or chew. 90 Capsule 1 4 1:29 PM EST 05/06/20 24 025 Discontin ued(Refil l) documented as [...] UDS + meth 11/23/22 [facility], new onset of paranoia and confusion UDS [...] very minimal noted on overnight PSG 2 [facility] Gastroesophageal reflux disease with esophagitis [...] pharyngitis 07/23/2010 01/18/2011 RECURRENT ACUTE SINUSITIS 05/03/2010 0 02/09/2017 VERTIGO,DYSEQUILIBRIUM 05/03/201002/09 Dyspnea and respiratory abnormality 05/03/2010 [...] IM 11/09/2009 Pneumococcal Conjugate Vacci ne, 20-valent ([id number]) 02/04/2023 Pneumococcal Polysaccharide PPV23 (Pneumovax) 01/17/2009 Seasonal [...] How often do you attend adventist or cheondoism serv ices? Never 06/02/2023 Do [...] Total Score 0 02/04/2023 [facility] - Occupational Stress Questionnaire Answer [...] Yes 06/03/2023 2:49 PM EDT Elda Peck, Freight Separator * Do you have difficulty dressing or [...] encounter Miscellaneous Notes * Telephone Encounter - Tha Rangel RPh - 09/24/2024 7:56 AM ESTSigned Prescriptions: Disp Refills Venlafaxine HCl ER 75 MG Oral Capsule Exte*90 Cap*0 Sig: Take 1 Capsule by mouth in the morning. Do not cut, crush or chew.Authorizing Provider: VAL PERSAUD User: THA RANGEL * Telephone Encounter - Tha Rangel RPh - 09/24/2024 7:54 AM EST Approved until OV. Jorge, Tha Rangel Clinical Pharmacist [facility] ([facility]) [phone] 09/24/2024, 7:55 AM documented in this encounter Plan of Treatment Upcoming Encounters Date Type Department Care Team (Late st Contact Info) Description 11/10/2024 5:00 PM EST Office Visit Family Practice [facility] [address] [place] [address] Val Persaud DO [address] [place] [address] Scheduled Orders Name Type Priority Associated Diagnoses Orde r Schedule LIPID PANEL WITH DIRECT LDL IF TG IS HIGH Lab Routine Encounter for long-term (current) use of medications Expected: 10/01/2024 (Approximate), Expires: 09/24/2025 Health Maintenance Due Date Last Done Comments DISCUSS TOBACCO CESSATION (REFER TO SMARTSET #[id number]) 1965 O2 ASSESSMENT COMPLETED IN PAST YEAR [...] as of this encounter Visit Diagnoses Diagnosis Encounter for long-term (current) use of medications- Primary Encounter for long-term (current) use of other medications Moderate episode of recurrent major depressive disorder [...] Directives occurred with: Not Discussed Care Teams Director Airport Operations Relationship Specialty Start Date End Date Val Persaud DO [address] [place] [address] PCP - General Family Medicine 02/08/16 documented as of this encounter
--- OUTSIDE RECORDS SUMMARY | 2024-11-18 23:18 | External Medical Summary | Summary of Care ---
Author Name Unknown Organization [facility] Address [address] [facility] [place] [address] Phone [phone] Care Team Providers Care Senior Sql Server Database Developer Name Role Phone Ninfa Cruz DO Primary Care Provider [phone] Reason for Visit * Reason Onset Date Comments Medication Refill 09/26/2024 Encounter Details Date Type Department Care Team (Late st Contact Info) Description 09/26/[address] [facility] [address] [place] [address] iNnfa Cruz DO [address] [facility] [place] [address] Allergies Active Allergy Reactions Criticality Noted Date [...] as of this encounter (statuses as of 09/26/2024) Medications Fexofenadine HCl 180 MG Oral Tablet (GNP Allergy Relief) Take 1 Tablet by mouth daily as needed for Allergies. 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 180 Capsule 1 09/23/19 25 Active documented as of this encounter (statuses as of 09/26/2024) Active Problems Problem Noted Date Diagnosed Date [...] as of this encounter (statuses as of 09/26/2024) Resolved Problems Problem Noted Date Diagnosed Date [...] as of this encounter (statuses as of 09/26/2024) Immunizations Name Administration Dates Next Due COVID-19, LNP-s, No Preserve , Lloyd-sucrose, Ages 12+ (Pfizer) 03/20/2022 H1N1 2009 Influenza, IM 11/09/2009 Pneumococcal Conjugate Vacci ne, 20-valent ([id number]) 02/04/2023 Pneumococcal Polysaccharide PPV23 (Pneumovax) 01/17/2009 Seasonal [...] Never 06/02/2023 How often do you attend druze or buddhism serv ices? Never 06/02/2023 Do you belong to any clubs o r organizations such as druze groups, unions, fraternal or athletic groups, or [...] Recorded PHQ Adult Total Score 0 02/04/2023 [facility] Occupat ional Health - Occupational [...] Yes 06/03/2023 2:49 PM EDT Elda Peck, Director Corporate Communications * Do you have difficulty dressing or [...] Telephone Encounter - Anjana Hardin - 09/26/2024 7:39 PM ESTRefused Prescriptions: Disp Refills QUEtiapine Fumarate 25 MG Oral Tablet (SER*30 Tab*0 Sig: Take 1Tablet by mouth every 8 hours as needed for Anxiety.Refused By: Jazzy HARDINon for Refusal: Duplicate Request documented in this encounter Plan of Treatment Upcoming Encounters Date Type Department Care Team (Late st Contact Info) Description 11/10/2024 5:00 PM EST Office Visit Family Practice [facility] [address] [facility] [place] [address] Ninfa Cruz, [address] [place] [address] Health Maintenance Due Date Last Done Comments DISCUSS TOBACCO CESSATION (REFER TO SMARTSET #[id number]) 1965 O2 ASSESSMENT COMPLETED IN PAST YEAR [...] Directives occurred with: Not Discussed Care Teams Senior Sql Server Database Developer Relationship Specialty Start Date End Date Ninfa Cruz DO [address] [place] [address] PCP - General Family Medicine 02/08/16 documented as of this encounter
--- OUTSIDE RECORDS SUMMARY | 2024-11-18 23:18 | External Medical Summary | Summary of Care ---
Author Name Unknown Organization [facility] Address [address] [facility] [place] [place] [address] Phone [phone] Care Team Providers Care Air Conditioning Mechanic Name Role Phone Val Persaud DO Primary Care Provider Reason for Visit * Reason Onset Date Comments Medication Refill 09/26/2024 Encounter Details Date Type Department Care Team (Late st Contact Info) Description 09/26/2024 Refill Family Practice [facility] [address] [place] [address] Val Persaud DO [address] [facility] [place] [address] Allergies Active Allergy Reactions Criticality Noted Date [...] OPD, group B, by GOLD 2017 classification ([facility]),Intermitten t asthma with reliever use [...] bedtime. 180 Capsule 1 09/27/19 25 Active Methocarbamol 500 MG Oral Tablet (Robamol) Take 1 Tablet by mouth 3 times a day as needed for Muscle spasms. 30 Tablet 09/27/19 25 Active Vitamin B-12 1000 MCG [...] Diagnosed Date Food insecurity 06/23/2023 Overview: Per [facility] Protocol Severe episode of recurrent major [...] minimal noted on overnight PSG 2 [facility] Gastroesophageal reflux disease with esophagitis 03/14/2011 HTN, [...] IM 11/09/2009 Pneumococcal Conjugate Vacci ne, 20-valent ([id number]) 02/04/2023 Pneumococcal Polysaccharide PPV23 (Pneumovax) 01/17/2009 Seasonal [...] Never 06/02/2023 How often do you attend moravian or sikh serv ices? Never 06/02/2023 Do you belong to any clubs o r organizations such as moravian groups, unions, fraternal or athletic groups, or [...] Health [facility] of Occupat ional [facility] - Occupational Stress Questionnaire Answer [...] Yes 06/03/2023 2:49 PM EDT Elda Peck, Burlapper * Do you have difficulty dressing or [...] Encounter - Val Persaud DO - 09/27/2024 11:37 AM ESTSigned Prescriptions: Disp Refills Methocarbamol 500 MG Oral Tablet (Robamol) 30 Tab*0 Sig: Take 1 Tablet by mouth 3 times a day as needed for Muscle spasms. Authorizing Provider: VAL PERSAUD * Telephone Encounter - Juana Salamanca LPN - 09/27/2024 11:27 AM ESTPending Prescriptions: Disp Refills Methocarbamol 500 MG Oral Tablet (Robamol) 30 Tab*0 Sig: Take 1 Tablet by mouth 3 times a day as needed for Muscle spasms. * Telephone Encounter - Anjana Hardin - 09/26/2024 1:52 PM ESTPending Prescriptions: Disp Refills Methocarbamol 500 MG Oral Tablet (Robamol) 30 Tab*0 Sig: Take 1 Tablet by mouth 3 times a day as needed for Muscle spasms. documented in this encounter Plan of Treatment Upcoming Encounters Date Type Department Care Team (Late st Contact Info) Description 11/10/2024 5:00 PM EST Office Visit Family Practice [facility] [address] [place] [address] Val Persaud DO [address] [place] [address] Health Maintenance Due Date Last Done Comments DISCUSS TOBACCO CESSATION (REFER TO SMARTSET #[id number]) 1965 O2 ASSESSMENT COMPLETED IN PAST YEAR [...] Directives occurred with: Not Discussed Care Teams Air Conditioning Mechanic Relationship Specialty Start Date End Date Newhouser, Val M, DO [address] [place] [address] PCP - General Family Medicine 02/08/16 documented as of this encounter
--- OUTSIDE RECORDS SUMMARY | 2024-11-18 23:19 | External Medical Summary | Summary of Care ---
Author Name Unknown Organization [facility] Address [address] [facility] [place] [address] Phone [phone] Care Team Providers Care Cutter Operator Name Role Phone Ninfa Cruz DO Primary Care Provider [phone] Reason for Visit * Reason Onset Date Comments Medication Refill 09/17/2024 Encounter Details Date Type Department Care Team (Late st Contact Info) Description 09/17/2024 Refill Family Practice [facility] [address] [place] [address] Ninfa Cruz DO [address] [facility] [place] [address] Gastroesophageal reflux disease with esophagitis without hemorrhage [...] 21 MG/24HR Transdermal Patch 24 Hour (Nicoderm CQ)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 180 mL 1 06/13/20 24 Active Fluticasone-Salmet mike 115-21 MCG/ACT Inhalation Aerosol (Advair HFA)Indications:CO PD, group B, by GOLD 2017 classification ([facility]),Intermittent asthma with reliever use up to twice [...] minimal noted on overnight PSG 2 [facility] Gastroesophageal reflux disease with esophagitis [...] IM 11/09/2009 Pneumococcal Conjugate Vacci ne, 20-valent ([id number]) 02/04/2023 Pneumococcal Polysaccharide PPV23 (Pneumovax) 01/17/2009 Seasonal [...] Never 06/02/2023 How often do you attend christianity or alevism serv ices? Never 06/02/2023 Do you belong to any clubs o r organizations such as christianity groups, unions, fraternal or athletic groups, or [...] PHQ Adult Total Score 0 02/04/2023 [facility] of Occupat ional Health - [...] Author Yes 06/03/2023 2:49 PM Elda Bowles, Hadoop Application Developer * Do you have difficulty dressing or [...] Notes * Telephone Encounter - Thomas Carrizales [facility] - 09/20/2024 12:04 PM ESTRefused Prescriptions: Disp Refills Dexlansoprazole 60 MG Oral Capsule Delayed*90 Cap*1 Sig: Take 1Capsule by mouth in the morning.Refused By: THOMAS CARRIZALES LReason for Refusal: Too soon documented in this encounter Plan of Treatment Upcoming Encounters Date Type Department Care Team (Late st Contact Info) Description 11/10/2024 5:00 PM EST Office Visit Family Practice [facility] [address] [facility] [place] [address] Ninfa Cruz, [address] [place] [address] Health Maintenance Due Date Last Done Comments DISCUSS TOBACCO CESSATION (REFER TO SMARTSET #[id number]) 1965 O2 ASSESSMENT COMPLETED IN PAST YEAR [...] Directives occurred with: Not Discussed Care Teams Cutter Operator Relationship Specialty Start Date End Date Ninfa Cruz DO [address] [place] [address] PCP - General Family Medicine 02/08/16 documented as of this encounter
--- OUTSIDE RECORDS SUMMARY | 2024-11-18 23:19 | External Medical Summary | Summary of Care ---
Author Name Unknown Organization [facility] Address [address] [facility] [place] [address] Phone [phone] Care Team Providers Care Carpenter'S Helper Name Role Phone Ninfa Cruz DO Primary Care Provider [phone] Reason for Visit * Reason Onset Date Comments Medication Refill 09/19/2024 Encounter Details Date Type Department Care Team (Late st Contact Info) Description 09/19/2024 Refill Family Practice [facility] [address] [place] [address] Ninfa Cruz DO [address] [facility] [place] [address] Gastroesophageal reflux disease with esophagitis without hemorrhage [...] 21 MG/24HR Transdermal Patch 24 Hour (Nicoderm CQ)Indications: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 180 mL 1 06/13/20 24 Active Fluticasone-Salmet mike 115-21 MCG/ACT Inhalation Aerosol (Advair HFA)Indications:CO PD, group B, by GOLD 2017 classification ([facility]),Intermittent asthma with reliever use up [...] Overview (01/15/2023): UDS + meth 11/23/22 [facility], new onset of paranoia and confusion [...] IM 11/09/2009 Pneumococcal Conjugate Vacci ne, 20-valent ([id number]) 02/04/2023 Pneumococcal Polysaccharide PPV23 (Pneumovax) 01/17/2009 Seasonal [...] How often do you attend restorationism or hoahaoism serv ices? Never 06/02/2023 Do you belong [...] Author Yes 06/03/2023 2:49 PM Elda Bowles, Crowning Hammer Operator * Do you have difficulty dressing [...] 5:00 PM EST Office Visit Family Practice [facility] [address] [place] [address] Ninfa Cruz DO [address] [place] [address] Health Maintenance Due Date Last Done Comments DISCUSS TOBACCO CESSATION (REFER TO SMARTSET #[id number]) 1965 O2 ASSESSMENT COMPLETED IN PAST YEAR [...] Directives occurred with: Not Discussed Care Teams Carpenter'S Helper Relationship Specialty Start Date End Date Ninfa Cruz DO [address] [place] [address] PCP - General Family Medicine 02/08/16 documented as of this encounter
--- OUTSIDE RECORDS SUMMARY | 2024-11-18 23:19 | External Medical Summary | Summary of Care ---
Author Name Unknown Organization [facility] Address [address] [facility] [place] [address] Phone [phone] Care Team Providers Care Command And Control Systems Integrator Name Role Phone Ninfa Cruz DO Primary Care Provider [phone] Reason for Visit * Reason Onset Date Comments Medication Refill 09/17/2024 Encounter Details Date Type Department Care Team (Late st Contact Info) Description 09/17/2024 Refill Family Practice [facility] [address] [place] [address] Tavares Virk MD [address] [place] [address] Chronic pain syndrome Allergies Active Allergy Reactions [...] 21 MG/24HR Transdermal Patch 24 Hour (Nicoderm CQ)Indications: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 Gastroesophageal reflux disease with esophagitis [...] IM 11/09/2009 Pneumococcal Conjugate Vacci ne, 20-valent ([id number]) 02/04/2023 Pneumococcal Polysaccharide PPV23 (Pneumovax) 01/17/2009 Seasonal [...] Never 06/02/2023 How often do you attend hindu or yazidism serv ices? Never 06/02/2023 Do you belong to any clubs o r organizations such as hindu groups, unions, fraternal or athletic groups, or [...] PHQ Adult Total Score 0 02/04/2023 [facility] of Occupat ional Health - Occupational [...] of Assessment Author Yes 06/03/2023 2:49 PM EDElda Schmitz, Cat Skinner * Do you have difficulty dressing or [...] 5:00 PM EST Office Visit Family Practice [facility] [address] [place] [address] Ninfa Cruz DO [address] [place] [address] Health Maintenance Due Date Last Done Comments DISCUSS TOBACCO CESSATION (REFER TO SMARTSET #[id number]) 1965 O2 ASSESSMENT COMPLETED IN PAST YEAR [...] HPV/Co-Test 02/05/2028 02/04/2023 Lipid Panel 06/03/2028 06/03/2023, 03/05/2023, 02/16/2022, Additional history exists Colonoscopy 06/22/2029 06/22/2019, [...] Directives occurred with: Not Discussed Care Teams Command And Control Systems Integrator Relationship Specialty Start Date End Date Ninfa Cruz DO [address] [place] [address] PCP - General Family Medicine 02/08/16 documented as of this encounter
--- OUTSIDE RECORDS SUMMARY | 2024-11-18 23:19 | External Medical Summary | Summary of Care ---
Author Name Unknown Organization [facility] Address [address] [place] [place] [address] Phone [phone] Care Team Providers Care Headliner Installer Name Role Phone Val Persaud DO Primary Care Provider [phone] Reason for Visit * Reason Onset Date Comments Medication Refill 09/15/2024 Encounter Details Date Type Department Care Team (Late st Contact Info) Description 09/15/2024 Refill Family Practice [facility] [address] [place] [address] Val Persaud DO [address] [facility] [place] [address] Allergies Active Allergy Reactions Criticality Noted Date [...] as of this encounter (statuses as of 09/17/2024) Medications Fexofenadine HCl 180 MG Oral Tablet [...] OPD, group B, by GOLD 2017 classification ([facility]),Intermitten t asthma with reliever use [...] 24 Active Pregabalin 225 MG Oral Capsule (Lyrica)Indicatio ns:Chronic pain syndrome Take 1 Capsule by mouth in the morning and 1 Capsule before bedtime. 180 Capsule 3 09/09/20 24 Active QUEtiapine Fumarate 25 MG Oral Tablet (SEROquel)Indicat ions:Anxiety Take 1 Tablet by mouth every 8 hours as needed for Anxiety. 30 Tablet 09/17/19 25 Active QUEtiapine Fumarate 25 MG Oral Tablet (SEROquel)Indicat ions:Anxiety Take 1 Tablet by mouth every 8 hours as needed for Anxiety. 30 Tablet 06/23/20 24 025 Discontin ued(Refil l) documented as of this encounter (statuses as of 09/17/2024) Active Problems Problem Noted Date Diagnosed Date Food insecurity 06/23/2023 Overview: Per [facility] Protocol Severe episode of recurrent major depressive disorder, without psychotic features 06/01/2023 PTSD (post-traumatic stress disorder) 06/01/2023 Cannabis abuse 06/01/2023 Iron deficiency anemia 03/25/2023 Substance abuse 12/31/2022 Overview (01/15/2023): UDS + meth 11/23/22 [facility], new onset of paranoia and confusion UDS [...] as of this encounter (statuses as of 09/17/2024) Resolved Problems Problem Noted Date Diagnosed Date [...] allergic conjunctivitis 10/26/2009 06/23/2017 Mixed dyslipidemia 05/12/2009 Overview (08/24/2009): Per Lipid Taxonomy. Abnormal results [...] as of this encounter (statuses as of 09/17/2024) Immunizations Name Administration Dates Next Due COVID-19, LNP-s, No Preserve , Lloyd-sucrose, Ages 12+ (Pfizer) 03/20/2022 H1N1 2009 Influenza, IM 11/09/2009 Pneumococcal Conjugate Vacci ne, 20-valent ([id number]) 02/04/2023 Pneumococcal Polysaccharide PPV23 (Pneumovax) 01/17/2009 Seasonal [...] Never 06/02/2023 How often do you attend anabaptism or anglican serv ices? Never 06/02/2023 Do you belong to any clubs o r organizations such as anabaptism groups, unions, fraternal or athletic groups, or [...] Recorded PHQ Adult Total Score 0 02/04/2023 [facility] of Occupat ional [facility] - Occupational Stress Questionnaire Answer Date [...] No 12/22/2023 Does the household have a [facility] source of income? (Household - for [...] 2:49 PM EDT Liv, C harles E, Compliance Manager * Do you have difficulty dressing [...] Telephone Encounter - Val Persaud DO - 09/17/2024 1:10 PM ESTSigned Prescriptions: Disp Refills QUEtiapine Fumarate 25 MG Oral Tablet (SER*30 Tab*0 Sig: Take 1 Tablet by mouth every 8 hours as needed for Anxiety. Authorizing Provider: VAL PERSAUD * Telephone Encounter - Julio Parker RPh - 09/17/2024 9:46 AM EST Pending Prescriptions: Disp Refills QUEtiapine Fumarate 25 MG Oral Tablet (SER*30 Tab*0 Sig: Take 1 Tablet by mouth every 8 hours as needed for Anxiety. * Telephone Encounter - Julio Parker [facility] - 09/17/2024 9:46 AM EST Pending Prescriptions: Disp Refills QUEtiapine Fumarate 25 MG Oral Tablet (SER*30 Tab*0 Sig: Take 1 Tablet by mouth every 8 hours as needed for Anxiety. 06/24/2023 (in office), 04/23/2022 (telemedicine) 11/10/2024 If no future appointments scheduled, and last appointment is greater than a year ago, please schedule patient for a follow-up appointment Last date the medication was ordered: 06/23/24 Pharmacy: [id number] [place] Is this request for a controlled substance?No Patient Phone Numbers Tellja [phone] Labs: Lab Results Component Value Date/Time CREAT [...] 5:00 PM EST Office Visit Family Practice [facility] [address] [place] [address] Val Persaud DO [address] [place] [address] Health Maintenance Due Date Last Done Comments DISCUSS TOBACCO CESSATION (REFER TO SMARTSET #[id number]) 1965 O2 ASSESSMENT COMPLETED IN PAST YEAR [...] Directives occurred with: Not Discussed Care Teams Headliner Installer Relationship Specialty Start Date End Date Val Persaud DO [address] [place] [address] PCP - General Family Medicine 02/08/16 documented as of this encounter
--- OUTSIDE RECORDS SUMMARY | 2024-11-18 23:19 | External Medical Summary | Summary of Care ---
Author Name Unknown Organization [facility] Address [address] [place] [place] [address] Phone [phone] Care Team Providers Care Hedge Fund Principal Name Role Phone Ninfa Cruz DO Primary Care Provider [phone] Reason for Visit * Reason Onset Date Comments Medication Refill 09/15/2024 Encounter Details Date Type Department Care Team (Late st Contact Info) Description 09/15/2024 Refill Family Practice [facility] [address] [place] [address] Ninfa Cruz DO [address] [facility] [place] [address] Allergies Active Allergy Reactions Criticality Noted Date [...] 21 MG/24HR Transdermal Patch 24 Hour (Nicoderm CQ)Indications: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 12 g 12 06/18/20 24 Active QUEtiapine Fumarate 25 MG Oral Tablet (SEROquel)Indicati ons:Anxiety Take 1 Tablet by mouth every 8 hours as needed for Anxiety. 30 Tablet 06/23/20 24 Active Polyethylene Glycol 3350 17 GM/SCOOP [...] bedtime. 180 Capsule 3 09/09/20 24 Active documented as of this encounter (statuses [...] noted on overnight PSG 2 [facility] Gastroesophageal reflux disease with esophagitis [...] IM 11/09/2009 Pneumococcal Conjugate Vacci ne, 20-valent ([id number]) 02/04/2023 Pneumococcal Polysaccharide PPV23 (Pneumovax) 01/17/2009 Seasonal [...] Never 06/02/2023 How often do you attend taoism or judaism serv ices? Never 06/02/2023 Do you belong to any clubs o r organizations such as taoism groups, unions, fraternal or athletic groups, or [...] 0 02/04/2023 [facility] - Occupational Stress Questionnaire Answer [...] Author Yes 06/03/2023 2:49 PM Elda Bowles, Chief Librarian Circulation Department * Do you have difficulty dressing or [...] Notes * Telephone Encounter - Julio Parker [facility] - 09/17/2024 9:48 AM EST Refused Prescriptions: Disp Refills Albuterol Sulfate HFA 108 (90 Base) MCG/AC*54 g 0 Sig: Inhale 2Puffs by mouth every 6 hours as needed for Dyspnea.Refused By: [facility]: Too soon documented in this encounter Plan of Treatment Upcoming Encounters Date Type Department Care Team (Late st Contact Info) Description 11/10/2024 5:00 PM EST Office Visit Family Practice [facility] [address] [place] [address] Ninfa Cruz, [address] [place] [address] Health Maintenance Due Date Last Done Comments DISCUSS TOBACCO CESSATION (REFER TO SMARTSET #0867) 1965 O2 ASSESSMENT COMPLETED IN PAST YEAR [...] Directives occurred with: Not Discussed Care Teams Hedge Fund Principal Relationship Specialty Start Date End Date Ninfa Cruz DO [address] [place] [address] PCP - General Family Medicine 02/08/16 documented as of this encounter
--- OUTSIDE RECORDS SUMMARY | 2024-11-18 23:19 | External Medical Summary | Summary of Care ---
Author Name Unknown Organization [facility] Address [address] [facility] [address] Phone [phone] Care Team Providers Care Drill Hand Name Role Phone Val Persaud DO Primary Care Provider Reason for Visit * Reason Onset Date Comments Medication Refill 09/04/2024 Encounter Details Date Type Department Care Team (Late st Contact Info) Description 09/04/2024 Refill Family Practice [facility] [address] [place] [address] Val Persaud DO [address] [place] [address] HTN, goal below 130/80* Allergies Active Allergy Reactions Criticality Noted Date [...] as of this encounter (statuses as of 09/06/2024) Medications Fexofenadine HCl 180 MG Oral Tablet [...] (3) MG/3ML Inhalation Solution (Duoneb)Indicatio ns:COPD, moderate ([facility]) Inhale 3 mL via nebulizer in the morning and 3 mL at noon and 3 mL in the evening and 3 mL before bedtime. 180 mL 1 06/13/20 24 Active Fluticasone-Salme terol 115-21 MCG/ACT Inhalation Aerosol (Advair HFA)Indications:C OPD, group B, by GOLD 2017 classification ([facility]),Intermitten t asthma with reliever use up to twice per week without complication Inhale 2 Puffs by mouth in the morning and 2 Puffs before bedtime. 12 g 12 06/18/20 24 Active QUEtiapine Fumarate 25 MG Oral Tablet (SEROquel)Indicat ions:Anxiety Take 1 Tablet by mouth every 8 hours as needed for Anxiety. 30 Tablet 06/23/20 24 Active Bismuth Subsalicylate 262 MG/15ML Oral Suspension ([employer] Stomach Relief)Indication s:Gastroesophagea l reflux disease with esophagitis without hemorrhage Take 30 mL by mouth every 6 hours as needed for Nausea. 473 mL 1 06/24/20 24 Active Polyethylene Glycol 3350 17 GM/SCOOP [...] morning. 90 Capsule 1 08/16/20 24 Active Pregabalin 225 MG Oral Capsule (Lyrica)Indicatio ns:Chronic pain syndrome Take 1 Capsule by mouth in the morning and 1 Capsule before bedtime. 180 Capsule 3 08/25/20 24 Active Ibuprofen 600 MG Oral Tablet (Motrin)Indicatio ns:Chronic Pain Take 1 Tablet by mouth every 6 hours as needed for Fever >38C(100.5F). 30 Tablet 1 09/03/20 24 Active Ondansetron 4 MG Oral Tablet Disintegrating (Zofran)Indicatio ns:Nausea Place 1 Tablet on tongue every 6 hours as needed for Nausea. 90 Tablet 4 09/06/20 24 Active Ondansetron 4 MG Oral Tablet Disintegrating (Zofran)Indicatio ns:Nausea Place 1 Tablet on tongue every 6 hours as needed for Nausea. 90 Tablet 5 07/26/20 24 024 Discontin ued(Refil l) documented as of this encounter (statuses as of 09/06/2024) Active Problems Problem Noted Date Diagnosed Date Food insecurity 06/23/2023 Overview: Per [facility] Protocol Severe episode of recurrent major depressive disorder, without psychotic features 06/01/2023 PTSD (post-traumatic stress disorder) 06/01/2023 Cannabis abuse 06/01/2023 Iron deficiency anemia 03/25/2023 Substance abuse 12/31/2022 Overview (01/15/2023): UDS + meth 11/23/22 [facility], new onset of paranoia and confusion UDS [...] PSG 2 [facility] Gastroesophageal reflux disease with esophagitis 03/14/2011 HTN, goal below 130/80 03/13/2011 Fibromyalgia 04/05/2010 Chronic nausea 04/02/2010 Overview (07/08/2017): ICD-10 update of inactive term Intermittent asthma with rel iever use up to twice per week without complication 01/04/2010 ANDRE (generalized anxiety disorder) 10/24/2009 Dyslipidemia 08/24/2009 Overview (08/24/2009): Per Lipid Taxonomy. Hypothyroidism 05/12/2009 documented as of this encounter (statuses as of 09/06/2024) Resolved Problems Problem Noted Date Diagnosed Date [...] as of this encounter (statuses as of 09/06/2024) Immunizations Name Administration Dates Next Due COVID-19, LNP-s, No Preserve , Lloyd-sucrose, Ages 12+ (Pfizer) 03/20/2022 H1N1 2009 Influenza, IM 11/09/2009 Pneumococcal Conjugate Vacci ne, 20-valent ([id number]) 02/04/2023 Pneumococcal Polysaccharide PPV23 (Pneumovax) 01/17/2009 Seasonal [...] How often do you attend spiritism or worship serv ices? Never 06/02/2023 Do [...] Recorded PHQ Adult Total Score 0 02/04/2023 [facility] - Occupational Stress Questionnaire Answer Date [...] No 12/22/2023 Does the household have a [facility] source of income? (Household - for [...] 06/03/2023 2:49 PM EDT Elda Peck, Chief Cloth Finishing Range Operator * Do you have difficulty dressing [...] encounter Miscellaneous Notes * Telephone Encounter - Osvaldo Kamara RPh - 09/06/2024 3:57 PM ESTSigned Prescriptions: Disp Refills Ondansetron 4 MG Oral Tablet Disintegratin*90 Tab*4 Sig: Place 1 Tablet on tongue every 6 hours as needed for Nausea.Authorizing Provider: VAL PERSAUD User: OSVALDO KAMARA * Telephone Encounter - Osvaldo Kmaara RPh - 09/06/2024 3:56 PM EST Rerouted remaining refills to new pharmacy as requested. Thanks, Osvaldo Kamara PharmD Clinical Pharmacist [facility] ([facility]) [phone] 09/06/2024, 3:56 PM documented in this encounter Plan of Treatment Upcoming Encounters Date Type Department Care Team (Late st Contact Info) Description 11/10/2024 5:00 PM EST Office Visit Family Practice [facility] [address] [place] [address] Val Persaud DO [address] [place] [address] Scheduled Orders Name Type Priority Associated Diagnoses Orde r Schedule BASIC METABOLIC PANEL Lab Routine HTN, goal below 130/80 Expected: 09/13/2024 (Approximate), Expires: 09/06/2025 Health Maintenance Due Date Last Done Comments DISCUSS TOBACCO CESSATION (REFER TO SMARTSET #7524) 1965 Cologuard 2008 Sigmoidoscopy 2008 Fecal Occult Blood Test 12/05/2019 12/04/2018 Mammogram 07/04/2021 07/04/2020, 01/15, 08/27/2016, Additional history exists COVID-19 Vaccine (2 - Pfizer risk series) 04/10/2022 03/20/2022 Depression Monitoring 02/05/2024 02/04/2023 GFR 06/01/2024 06/01/2023, 01/14, 01/20/2023, Additional history exists O2 ASSESSMENT COMPLETED IN PAST YEAR FOR COPD 09/11/2024 09/11/2023 Albumin/Creatinine Ratio 01/03/2025 01/03/2022 TSH 07/23/2025 07/23/2024, [...] 11/04/2019 Alpha-1 Antitrypsin Completed 05/19/2020 Pneumococcal Vaccine: Pediatrics (0 to 5 Years) and At-Risk Patients (6 to 64 Years) Completed 02/04/2023, 01/17/2009 Influenza Vaccine (FLU shot) [...] as of this encounter Visit Diagnoses Diagnosis HTN, goal below 130/80- Primary Unspecified essential hypertension documented in this encounter Advance Directives * [...] Directives occurred with: Not Discussed Care Teams Drill Hand Relationship Specialty Start Date End Date Val Persaud DO [address] [place] [address] PCP - General Family Medicine 02/08/16 documented as of this encounter
--- OUTSIDE RECORDS SUMMARY | 2024-11-18 23:19 | External Medical Summary | Summary of Care ---
Author Name Unknown Organization [facility] Address [address] [facility] [place] [address] Phone [phone] Care Team Providers Care Studio Manager Name Role Phone Ninfa Cruz DO Primary Care Provider [phone] Reason for Visit * Reason Onset Date Comments Medication Refill 09/15/2024 Encounter Details Date Type Department Care Team (Late st Contact Info) Description 09/15/2024 Refill Family [facility] [address] [place] [address] Tavares Virk MD [address] [place] [address] Chronic pain syndrome Allergies Active Allergy Reactions [...] 21 MG/24HR Transdermal Patch 24 Hour (Nicoderm CQ)Indications: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 Never 06/02/2023 Do you belong to any clubs o r organizations such as orthodox groups, unions, fraternal or athletic groups, or [...] Total Score 0 02/04/2023 [facility] - Occupational [...] Author Yes 06/03/2023 2:49 PM EDElda Schmitz, Substation Electrician Supervisor * Do you have difficulty dressing [...] Miscellaneous Notes * Telephone Encounter - Julio Meeks [facility] - 09/17/2024 9:46 AM EST Refused Prescriptions: Disp Refills Pregabalin 225 MG Oral Capsule (Lyrica) 180 Ca*3 Sig: Take 1 Capsule by mouth in the morning and 1 Capsule before bedtime.Refused By: JULIO MEEKSason for Refusal: Too soon * Telephone Encounter - Julio Meeks [facility] - 09/17/2024 9:44 AM EST I have reviewed the patients controlled substance dispensing history in the Prescription Drug Monitoring Program in compliance with the [facility] regulations before prescribing a controlled substance. PDMP checked on 09/17/2024. Pending Prescriptions: Disp Refills Pregabalin 225 MG Oral Capsule (Lyrica) 180 Ca*3 Sig: Take 1 Capsule by mouth in the morning and 1 Capsule before bedtime. Last Visit: 06/24/2023 (in office), 04/23/2022 (telemedicine) Next Visit: 11/10/2024 Date medication was last filled: 07/21/24 Date medication is due for refill: 10/17/23 [facility] Is this request for a controlled substance? Yes and Urine Drug Screen Not completed Please approve if appropriate. Thanks, Julio Meeks, PharmD Clinical Pharmacist [facility] ([facility]) [phone] 09/17/2024, 9:44 AM documented in this encounter Plan of Treatment Upcoming Encounters Date Type Department Care Team (Late st Contact Info) Description 11/10/2024 5:00 PM EST Office Visit [facility] [address] [place] [address] Ninfa Cruz DO [address] [place] [address] Health Maintenance Due Date Last Done Comments DISCUSS TOBACCO CESSATION (REFER TO SMARTSET #[id number]) 1965 O2 ASSESSMENT COMPLETED IN PAST YEAR [...] Directives occurred with: Not Discussed Care Teams Studio Manager Relationship Specialty Start Date End Date Ninfa Cruz DO [address] [place] [address] PCP - General Family Medicine 02/08/16 documented as of this encounter
--- OUTSIDE RECORDS SUMMARY | 2024-11-18 23:19 | External Medical Summary | Summary of Care ---
Author Name Unknown Organization [facility] Address [address] [place] [place] [address] Phone [phone] Care Team Providers Care Cost Estimator Name Role Phone Ninfa Cruz DO Primary Care Provider [phone] Reason for Visit * Reason Onset Date Comments Medication Refill 09/15/2024 Encounter Details Date Type Department Care Team (Late st Contact Info) Description 09/15/2024 Refill Family Practice [facility] [address] [place] [address] Ninfa Cruz DO [address] [facility] [place] [address] Gastroesophageal reflux disease with esophagitis without hemorrhage [...] 21 MG/24HR Transdermal Patch 24 Hour (Nicoderm CQ)Indications: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 Never 06/02/2023 Do you belong [...] Recorded PHQ Adult Total Score 0 02/04/2023 [facility] of Occupat ional Health - [...] Author Yes 06/03/2023 2:49 PM Elda Bowles, Franchise Business Consultant * Do you have difficulty dressing or [...] Notes * Telephone Encounter - Julio Parker [facility] - 09/17/2024 9:47 AM EST Refused Prescriptions: Disp Refills Dexlansoprazole 60 MG Oral Capsule Delayed*90 Cap*1 Sig: Take 1Capsule by mouth in the morning.Refused By: [facility] for Refusal: Too soon------ documented in this encounter Plan of Treatment Upcoming Encounters Date Type Department Care Team (Late st Contact Info) Description 11/10/2024 5:00 PM EST Office Visit Family Practice [facility] [address] [place] [address] Ninfa Cruz, [address] [place] [address] Health Maintenance Due Date Last Done Comments DISCUSS TOBACCO CESSATION (REFER TO SMARTSET #7511) 1965 O2 ASSESSMENT COMPLETED IN PAST YEAR [...] Directives occurred with: Not Discussed Care Teams Cost Estimator Relationship Specialty Start Date End Date Ninfa Cruz DO [address] [facility] [place] [address] PCP - General Family Medicine 02/08/16 documented as of this encounter
--- OUTSIDE RECORDS SUMMARY | 2024-11-18 23:20 | External Medical Summary | Summary of Care ---
Author Name Unknown Organization [facility] Address [address] [facility] [place] [address] Phone [phone] Care Team Providers Care Machine Finisher Name Role Phone Val Persaud DO Primary Care Provider Reason for Visit * Reason Onset Date Comments Medication Refill 09/02/2024 Encounter Details Date Type Department Care Team (Late st Contact Info) Description 09/02/2024 Refill Family Practice [facility] [address] [facility] [place] [address] Val Persaud DO [address] [place] [address] Allergies Active Allergy Reactions Criticality Noted Date [...] as of this encounter (statuses as of 09/03/2024) Medications Fexofenadine HCl 180 MG Oral Tablet [...] Active Benzonatate 100 MG Oral Capsule (Tessalmalu Perlmarifer)Indication s:Suspected COVID-19 virus infection,Dry cough Take [...] morning. 90 Tablet 1 07/23/20 24 Active Ondansetron 4 MG Oral Tablet Disintegrating (Zofran)Indicatio ns:Nausea Place 1 Tablet on tongue every 6 hours as needed for Nausea. 90 Tablet 5 07/26/20 24 Active Methocarbamol 500 MG Oral Tablet [...] >38C(100.5F). 30 Tablet 1 09/03/20 24 Active Ibuprofen 600 MG Oral Tablet (Motrin)Indicatio ns:Chronic Pain Take 1 Tablet by mouth every 6 hours as needed for Fever >38C(100.5F). 30 Tablet 1 07/27/20 24 024 Discontin ued(Refil l) documented as of this encounter (statuses as of 09/03/2024) Active Problems Problem Noted Date Diagnosed Date Food insecurity 06/23/2023 Overview: Per [facility] Protocol Severe episode of recurrent major [...] noted on overnight PSG 2 [facility] Gastroesophageal reflux disease with esophagitis 03/14/2011 HTN, goal below 130/80 03/13/2011 Fibromyalgia 04/05/2010 Chronic nausea 04/02/2010 Overview (07/08/2017): ICD-10 update of inactive term Intermittent asthma with rel iever use up to twice per week without complication 01/04/2010 ANDRE (generalized anxiety disorder) 10/24/2009 Dyslipidemia 08/24/2009 Overview (08/24/2009): Per Lipid Taxonomy. Hypothyroidism 05/12/2009 documented as of this encounter (statuses as of 09/03/2024) Resolved Problems Problem Noted Date Diagnosed Date [...] as of this encounter (statuses as of 09/03/2024) Immunizations Name Administration Dates Next Due COVID-19, LNP-s, No Preserve , Lloyd-sucrose, Ages 12+ (Pfizer) 03/20/2022 H1N1 2009 Influenza, IM 11/09/2009 Pneumococcal Conjugate Vacci ne, 20-valent ([id number]) 02/04/2023 Pneumococcal Polysaccharide PPV23 (Pneumovax) 01/17/2009 Seasonal [...] How often do you attend judaism or scientologist serv ices? Never 06/02/2023 Do [...] Recorded PHQ Adult Total Score 0 02/04/2023 [facility] - Occupational Stress Questionnaire Answer Date Recorded [...] Yes 06/03/2023 2:49 PM EDT Elda Peck, Bush Hog Operator * Do you have difficulty dressing [...] Telephone Encounter - Val Persaud DO - 09/03/2024 12:48 PM ESTSigned Prescriptions: Disp Refills Ibuprofen 600 MG Oral Tablet (Motrin) 30 Tab*1 Sig: Take 1 Tablet by mouth every 6 hours as needed for Fever >38C(100.5F). Authorizing Provider: VAL PERSAUD * Telephone Encounter - Yoandy Chan [facility] - 09/03/2024 12:39 PM EST Pending Prescriptions: Disp Refills Ibuprofen 600 MG Oral Tablet (Motrin) 30 Tab*1 Sig: Take 1 Tablet by mouth every 6 hours as needed for Fever >38C(100.5F). * Telephone Encounter - Yoandy Chan [facility] - 09/03/2024 12:38 PM EST Unable to authorize medication refills for pended medication(s) at this time. Part of the protocol criteria used for refill authorization was not satisfied. Patient needs OV in the past year, multiple cancelled appointments. Upcoming appt scheduled 11/10/2024. Please approve if appropriate. Thank you, Yoandy Chan, PharmD Clinical Pharmacist [facility] ([facility]) 09/03/24 12:38 PM [phone] * Telephone Encounter - Yoandy Chan [facility] - 09/03/2024 12:37 PM EST Pending Prescriptions: Disp Refills Ibuprofen 600 MG Oral Tablet (Motrin) 30 Tab*1 Sig: Take 1 Tablet by mouth every 6 hours as needed for Fever >38C(100.5F). Last Visit: 06/24/2023 (in office), 04/23/2022 (telemedicine) Next Visit: 11/10/2024 If no future appointments scheduled, and last appointment is greater than a year ago, please schedule patient for a follow-up appointment Last date the medication was ordered: 07/27/2024 Pharmacy: [facility] Is this request for a [...] 5:00 PM EST Office Visit Family Practice [facility] [address] [place] [address] Val Persaud DO [address] [place] [address] Health Maintenance Due Date Last Done Comments DISCUSS TOBACCO CESSATION (REFER TO SMARTSET #6705) 1965 Cologuard 2008 Sigmoidoscopy 2008 Fecal Occult [...] Directives occurred with: Not Discussed Care Teams Machine Finisher Relationship Specialty Start Date End Date Val Persaud DO [address] [place] [address] PCP - General Family Medicine 02/08/16 documented as of this encounter
--- OUTSIDE RECORDS SUMMARY | 2024-11-18 23:20 | External Medical Summary | Summary of Care ---
Author Name Unknown Organization [facility] Address [address] [facility] [place] [address] Phone [phone] Care Team Providers Care Diversity Intern Name Role Phone Ninfa Cruz DO Primary Care Provider Reason for Visit * Reason Onset Date Comments Medication Refill 08/18/2024 Encounter Details Date Type Department Care Team (Late st Contact Info) Description 08/18/2024 Refill Family Practice [facility] [address] [facility] [place] [address] Ninfa Cruz DO [address] [place] [address] Allergies Active Allergy Reactions Criticality Noted Date [...] as of this encounter (statuses as of 08/18/2024) Medications Fexofenadine HCl 180 MG Oral Tablet (GNP Allergy Relief) Take 1 Tablet by mouth daily as needed for Allergies. 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 850 g 1 06/24/20 24 Active Pregabalin 225 MG Oral Capsule (Lyrica)Indication s:Chronic pain syndrome Take 1 Capsule by mouth in the morning and 1 Capsule before bedtime. 180 Capsule 3 07/20/20 24 Active Estradiol 0.1 MG/GM Vaginal Cream [...] Muscle spasms. 30 Tablet 07/28/20 24 Active Ibuprofen 600 MG Oral Tablet (Motrin)Indication s:Chronic Pain Take 1 Tablet by mouth every 6 hours as needed for Fever >38C(100.5F). 30 Tablet 1 07/27/20 24 Active Bismuth Subsalicylate 262 MG/15ML Oral [...] morning. 90 Capsule 1 08/16/20 24 Active documented as of this encounter (statuses as of 08/18/2024) Active Problems Problem Noted Date Diagnosed Date [...] very minimal noted on overnight PSG 2 [facility] Gastroesophageal reflux disease with esophagitis 03/14/2011 HTN, goal below 130/80 03/13/2011 Fibromyalgia 04/05/2010 Chronic nausea 04/02/2010 Overview (07/08/2017): ICD-10 update of inactive term Intermittent asthma with rel iever use up to twice per week without complication 01/04/2010 ANDRE (generalized anxiety disorder) 10/24/2009 Dyslipidemia 08/24/2009 Overview (08/24/2009): Per Lipid Taxonomy. Hypothyroidism 05/12/2009 documented as of this encounter (statuses as of 08/18/2024) Resolved Problems Problem Noted Date Diagnosed Date [...] as of this encounter (statuses as of 08/18/2024) Immunizations Name Administration Dates Next Due COVID-19, LNP-s, No Preserve , Lloyd-sucrose, Ages 12+ (Pfizer) 03/20/2022 H1N1 2009 Influenza, IM 11/09/2009 Pneumococcal Conjugate Vacci ne, 20-valent ([id number]) 02/04/2023 Pneumococcal Polysaccharide PPV23 (Pneumovax) 01/17/2009 Seasonal [...] Never 06/02/2023 How often do you attend islam or orthodoxy serv ices? Never 06/02/2023 Do you belong to any clubs o r organizations such as islam groups, unions, fraternal or athletic groups, or [...] Recorded PHQ Adult Total Score 0 02/04/2023 [facility] of Occupat ional Health - Occupational Stress [...] Author Yes 06/03/2023 2:49 PM Elda Bowles, Dumpster Driver * Do you have difficulty dressing or bathing? (5 years old or older) Answer Date of Assessment Author No 09/01/2019 1:35 PM Columba Marhc RN * Because of a physical, mental, [...] * Telephone Encounter - Anjana Hardin - 08/18/2024 11:32 PM ESTRefused Prescriptions: Disp Refills Levothyroxine Sodium 75 MCG Oral Tablet (L*90 Tab*1 Sig: Take 1Tablet by mouth daily first thing in the morning.Refused By: Maricel HARDIN for Refusal: Duplicate Request documented in this encounter Plan of Treatment Upcoming Encounters Date Type Department Care Team (Late st Contact Info) Description 11/10/2024 5:00 PM EST Office Visit Family Practice [facility] [address] [place] [address] Ninfa Cruz, [address] [place] [address] Health Maintenance Due Date Last Done Comments DISCUSS TOBACCO CESSATION (REFER TO SMARTSET #3291) 1965 Cologuard 2008 Sigmoidoscopy 2008 Fecal Occult [...] Directives occurred with: Not Discussed Care Teams Diversity Intern Relationship Specialty Start Date End Date Ninfa Cruz DO [address] [place] [address] PCP - General Family Medicine 02/08/16 documented as of this encounter
--- OUTSIDE RECORDS SUMMARY | 2024-11-18 23:20 | External Medical Summary | Summary of Care ---
Author Name Unknown Organization [facility] Address [address] [place] [address] Phone [phone] Care Team Providers Care Paleontological Helper Name Role Phone Ninfa Cruz DO Primary Care Provider Reason for Visit * Reason Onset Date Comments Medication Refill 08/15/2024 Encounter Details Date Type Department Care Team (Late st Contact Info) Description 08/15/2024 Refill Family Practice [facility] [address] [facility] [place] [address] Ninfa Cruz DO [address] [place] [address] Allergies Active Allergy Reactions Criticality Noted Date [...] as of this encounter (statuses as of 08/16/2024) Medications Fexofenadine HCl 180 MG Oral Tablet (GNP Allergy Relief) Take 1 Tablet by mouth daily as needed for Allergies. 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 90 Capsule 1 03/29/20 24 Active Prochlorperazine Maleate 10 MG Oral [...] crush or chew. 90 Capsule 1 4 11:45 AM EDT 05/06/20 24 Active Fluticasone Propionate 50 MCG/ACT [...] Inhalation Solution (Duoneb)Indication s:COPD, moderate ([facility]) Inhale 3 mL via nebulizer in the morning and 3 mL at noon and 3 mL in the evening and 3 mL before bedtime. 180 mL 1 06/13/20 24 Active Fluticasone-Salmet mike 115-21 MCG/ACT Inhalation Aerosol (Advair HFA)Indications:CO PD, group B, by GOLD 2017 classification ([facility]),Intermittent asthma with reliever use up [...] upset). 473 mL 1 08/09/20 24 Active documented as of this encounter (statuses as of 08/16/2024) Active Problems Problem Noted Date Diagnosed Date [...] minimal noted on overnight PSG 2 [facility] Gastroesophageal reflux disease with esophagitis 03/14/2011 HTN, goal below 130/80 03/13/2011 Fibromyalgia 04/05/2010 Chronic nausea 04/02/2010 Overview (07/08/2017): ICD-10 update of inactive term Intermittent asthma with rel iever use up to twice per week without complication 01/04/2010 ANDRE (generalized anxiety disorder) 10/24/2009 Dyslipidemia 08/24/2009 Overview (08/24/2009): Per Lipid Taxonomy. Hypothyroidism 05/12/2009 documented as of this encounter (statuses as of 08/16/2024) Resolved Problems Problem Noted Date Diagnosed Date [...] as of this encounter (statuses as of 08/16/2024) Immunizations Name Administration Dates Next Due COVID-19, LNP-s, No Preserve , Lloyd-sucrose, Ages 12+ (Pfizer) 03/20/2022 H1N1 2009 Influenza, IM 11/09/2009 Pneumococcal Conjugate Vacci ne, 20-valent ([id number]) 02/04/2023 Pneumococcal Polysaccharide PPV23 (Pneumovax) 01/17/2009 Seasonal [...] Never 06/02/2023 How often do you attend mosque or confucianism serv ices? Never 06/02/2023 Do you belong to any clubs o r organizations such as mosque groups, unions, fraternal or athletic groups, or [...] Recorded PHQ Adult Total Score 0 02/04/2023 [facility] [place] of Occupat ional Health - Occupational Stress [...] Yes 06/03/2023 2:49 PM EDT Elda Peck, Tooth Grinder * Do you have difficulty dressing [...] encounter Miscellaneous Notes * Telephone Encounter - Johnny Bartlett [facility] - 08/16/2024 1:20 PM ESTRefused Prescriptions: Disp Refills Levothyroxine Sodium 75 MCG Oral Tablet (L*90 Tab*1 Sig: Take 1Tablet by mouth daily first thing in the morning.Refused By: JOHNNY BARTLETT for Refusal: Duplicate Request documented in this encounter Plan of Treatment Upcoming Encounters Date Type Department Care Team (Late st Contact Info) Description 11/10/2024 5:00 PM EST Office Visit Family Practice [facility] [address] [facility] [place] [address] Ninfa Cruz DO [address] [place] [address] Health Maintenance Due Date Last Done Comments DISCUSS TOBACCO CESSATION (REFER TO SMARTSET #[id number]) 1963 Cologuard 2008 Sigmoidoscopy 2008 Fecal Occult [...] Directives occurred with: Not Discussed Care Teams Paleontological Helper Relationship Specialty Start Date End Date Ninfa Cruz DO [address] [place] [address] PCP - General Family Medicine 02/08/16 documented as of this encounter
--- OUTSIDE RECORDS SUMMARY | 2024-11-18 23:20 | External Medical Summary | Summary of Care ---
Author Name Unknown Organization [facility] Address [address] [place] [address] Phone [phone] Care Team Providers Care International Accountant Name Role Phone Ninfa Cruz DO Primary Care Provider [phone] Reason for Visit * Reason Onset Date Comments Medication Refill 08/22/2024 Encounter Details Date Type Department Care Team (Late st Contact Info) Description 08/22/2024 Refill Family Practice [facility] [address] [facility] [place] [address] Ninfa Cruz DO [address] [place] [address] Allergies Active Allergy Reactions Criticality Noted Date [...] as of this encounter (statuses as of 08/23/2024) Medications Fexofenadine HCl 180 MG Oral Tablet (GNP Allergy Relief) Take 1 Tablet by mouth daily as needed for Allergies. 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),Tobacco use disorder Place 1 [...] by GOLD 2017 classification ([facility]),Intermittent asthma with reliever use up to twice [...] as of this encounter (statuses as of 08/23/2024) Active Problems Problem Noted Date Diagnosed Date Food insecurity 06/23/2023 Overview: Per [facility] Protocol Severe episode of recurrent major depressive disorder, without psychotic features 06/01/2023 PTSD (post-traumatic stress disorder) 06/01/2023 Cannabis abuse 06/01/2023 Iron deficiency anemia 03/25/2023 Substance abuse 12/31/2022 Overview (01/15/2023): UDS + meth 11/23/22 [facility], new onset of paranoia [...] minimal noted on overnight PSG 2 [facility] Gastroesophageal reflux disease with esophagitis 03/14/2011 HTN, goal below 130/80 03/13/2011 Fibromyalgia 04/05/2010 Chronic nausea 04/02/2010 Overview (07/08/2017): ICD-10 update of inactive term Intermittent asthma with rel iever use up to twice per week without complication 01/04/2010 ANDRE (generalized anxiety disorder) 10/24/2009 Dyslipidemia 08/24/2009 Overview (08/24/2009): Per Lipid Taxonomy. Hypothyroidism 05/12/2009 documented as of this encounter (statuses as of 08/23/2024) Resolved Problems Problem Noted Date Diagnosed Date [...] as of this encounter (statuses as of 08/23/2024) Immunizations Name Administration Dates Next Due COVID-19, LNP-s, No Preserve , Lloyd-sucrose, Ages 12+ (Pfizer) 03/20/2022 H1N1 2009 Influenza, IM 11/09/2009 Pneumococcal Conjugate Vacci ne, 20-valent ([id number]) 02/04/2023 Pneumococcal Polysaccharide PPV23 (Pneumovax) 01/17/2009 Seasonal [...] How often do you attend christianity or orthodoxy serv ices? Never 06/02/2023 Do [...] Recorded PHQ Adult Total Score 0 02/04/2023 [facility] [place] of Occupat ional Health - Occupational Stress [...] Author Yes 06/03/2023 2:49 PM Elda Bowles, Supervising Editor News Reel * Do you have difficulty dressing or [...] Notes * Telephone Encounter - Kenisha Sandhu RPh - 08/23/2024 12:10 PM ESTRefused Prescriptions: Disp Refills Ondansetron 4 MG Oral Tablet Disintegratin*90 Tab*5 Sig: Place1 Tablet on tongue every 6 hours as needed for Nausea.Refused By: KEZIA SANDHUeason for Refusal: Too soon Electronically signed by Kenisha Sandhu [facility] at 08/23/2024 12:10 PM EST documented in this encounter Plan of Treatment Upcoming Encounters Date Type Department Care Team (Late st Contact Info) Description 11/10/2024 5:00 PM EST Office Visit Family Practice [facility] [address] [place] [address] Ninfa Cruz, [address] [place] [address] Health Maintenance Due Date Last Done Comments [...] Directives occurred with: Not Discussed Care Teams International Accountant Relationship Specialty Start Date End Date Ninfa Cruz DO [address] [place] [address] PCP - General Family Medicine 02/08/16 documented as of this encounter
--- OUTSIDE RECORDS SUMMARY | 2024-11-18 23:20 | External Medical Summary | Summary of Care ---
Author Name Unknown Organization [facility] Address [address] [facility] [place] [address] Phone [phone] Care Team Providers Care Steward/Stewardess Banquet Name Role Phone Ninfa Cruz DO Primary Care Provider [phone] Reason for Visit * Reason Onset Date Comments Medication Refill 08/22/2024 Encounter Details Date Type Department Care Team (Late st Contact Info) Description 08/22/2024 Refill Family Practice [facility] [address] [facility] [place] [address] Ninfa Cruz DO [address] [place] [address] Chronic pain syndrome Allergies Active Allergy Reactions [...] 21 MG/24HR Transdermal Patch 24 Hour (Nicoderm CQ)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 Never 06/02/2023 Do you belong [...] Recorded PHQ Adult Total Score 0 02/04/2023 [facility] [place] of Occupat ional Health - Occupational Stress [...] Author Yes 06/03/2023 2:49 PM Elda Bowles, Fiberglass Auto Body Repairer * Do you have difficulty dressing or [...] Encounter - Kenisha Sandhu RPh - 08/23/2024 12:09 PM ESTRefused Prescriptions: Disp Refills Pregabalin 225 MG Oral Capsule (Lyrica) 180 Ca*3 Sig: Take 1 Capsule by mouth in the morning and 1 Capsule before bedtime.Refused By: KEZIA SANDHUeason for Refusal: Duplicate Request documented in this encounter Plan of Treatment Upcoming Encounters Date Type Department Care Team (Late st Contact Info) Description 11/10/2024 5:00 PM EST Office Visit Family Practice [facility] [address] [place] [address] Ninfa Cruz, [address] [place] [address] Health Maintenance Due Date Last Done Comments DISCUSS TOBACCO CESSATION (REFER TO SMARTSET #[id number]) 1965 Cologuard 2008 Sigmoidoscopy 2008 Fecal Occult [...] Directives occurred with: Not Discussed Care Teams Steward/Stewardess Banquet Relationship Specialty Start Date End Date Ninfa Cruz DO [address] [place] [address] PCP - General Family Medicine 02/08/16 documented as of this encounter
--- OUTSIDE RECORDS SUMMARY | 2024-11-18 23:20 | External Medical Summary | Summary of Care ---
Author Name Unknown Organization [facility] Address [address] [facility] [place] [address] Phone [phone] Care Team Providers Care Sheet Rock Sander Name Role Phone Ninfa Cruz DO Primary Care Provider Reason for Visit * Reason Onset Date Comments Medication Refill 08/25/2024 Encounter Details Date Type Department Care Team (Late st Contact Info) Description 08/25/2024 Refill Family Practice [facility] [address] [facility] [place] [address] Ninfa Cruz DO [address] [place] [address] Chronic pain syndrome Allergies Active Allergy Reactions [...] as of this encounter (statuses as of 08/26/2024) Medications Fexofenadine HCl 180 MG Oral Tablet (GNP Allergy Relief) Take 1 Tablet by mouth daily as needed for Allergies. 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 180 Capsule 3 08/25/20 24 Active documented as of this encounter (statuses as of 08/26/2024) Active Problems Problem Noted Date Diagnosed Date Food insecurity 06/23/2023 Overview: Per [facility] Protocol Severe episode of recurrent major depressive disorder, without psychotic features 06/01/2023 PTSD (post-traumatic stress disorder) 06/01/2023 Cannabis abuse 06/01/2023 Iron deficiency anemia 03/25/2023 Substance abuse 12/31/2022 Overview (01/15/2023): UDS + meth 11/23/22 [facility], new onset of paranoia and confusion UDS [...] as of this encounter (statuses as of 08/26/2024) Resolved Problems Problem Noted Date Diagnosed Date [...] as of this encounter (statuses as of 08/26/2024) Immunizations Name Administration Dates Next Due COVID-19, LNP-s, No Preserve , Lloyd-sucrose, Ages 12+ (Pfizer) 03/20/2022 H1N1 2009 Influenza, IM 11/09/2009 Pneumococcal Conjugate Vacci ne, 20-valent ([id number]) 02/04/2023 Pneumococcal Polysaccharide PPV23 (Pneumovax) 01/17/2009 Seasonal [...] How often do you attend confucianism or pentecostal serv ices? Never 06/02/2023 Do [...] Recorded PHQ Adult Total Score 0 02/04/2023 [facility] [place] of Occupat ional Health - Occupational Stress [...] Author Yes 06/03/2023 2:49 PM Elda Bowles, Medical Education Specialist * Do you have difficulty dressing [...] encounter Miscellaneous Notes * Telephone Encounter - Ashok Medina [facility] - 08/26/2024 10:54 AM EST Refused Prescriptions: Disp Refills Pregabalin 225 MG Oral Capsule (Lyrica) 180 Ca*3 Sig: Take 1 Capsule by mouth in the morning and 1 Capsule before bedtime.Refused By: ASHOK MEDINA for Refusal: Too soon Ondansetron 4 MG Oral Tablet Disintegratin*90 Tab*5 Sig: Place 1 Tablet on tongue every 6 hours as needed for Nausea.Refused By: ASHOK MEDINA for Refusal: Too soon documented in this encounter Plan of Treatment Upcoming Encounters Date Type Department Care Team (Late st Contact Info) Description 11/10/2024 5:00 PM EST Office Visit Family Practice [facility] [address] [place] [address] Ninfa Curz, [address] [place] [address] Health Maintenance Due Date Last Done Comments DISCUSS TOBACCO CESSATION (REFER TO SMARTSET #[id number]) 1965 Cologuard 2008 Sigmoidoscopy 2008 Fecal Occult [...] Directives occurred with: Not Discussed Care Teams Sheet Rock Sander Relationship Specialty Start Date End Date Ninfa Cruz DO [address] [place] [address] PCP - General Family Medicine 02/08/16 documented as of this encounter
--- OUTSIDE RECORDS SUMMARY | 2024-11-18 23:20 | External Medical Summary | Summary of Care ---
Author Name Unknown Organization [facility] Address [address] [facility] [place] [address] Phone [phone] Care Team Providers Care Ent Nurse Name Role Phone Ninfa Cruz DO Primary Care Provider Reason for Visit * Reason Onset Date Comments Medication Refill 08/20/2024 Encounter Details Date Type Department Care Team (Late st Contact Info) Description 08/20/2024 Refill Family Practice [facility] [address] [facility] [place] [address] Ninfa Cruz DO [address] [place] [address] Chronic pain syndrome Allergies Active Allergy Reactions [...] 21 MG/24HR Transdermal Patch 24 Hour (Nicoderm CQ)Indications: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 Never 06/02/2023 Do you belong [...] Recorded PHQ Adult Total Score 0 02/04/2023 [facility] [place] of Occupat ional Health - Occupational Stress [...] Author Yes 06/03/2023 2:49 PM Elda Bowles, Book Or Script Editor * Do you have difficulty dressing or [...] before bedtime.Refused By: KEZIA SANDHUeason for Refusal: Too soon documented in this encounter Plan of Treatment Upcoming Encounters Date Type Department Care Team (Late st Contact Info) Description 11/10/2024 5:00 PM EST Office Visit Family Practice [facility] [address] [place] [address] Ninfa Cruz, [address] [place] [address] Health Maintenance Due Date Last Done Comments DISCUSS TOBACCO CESSATION (REFER TO SMARTSET #0743) 1965 Cologuard 2008 Sigmoidoscopy 2008 Fecal Occult [...] Directives occurred with: Not Discussed Care Teams Ent Nurse Relationship Specialty Start Date End Date Ninfa Cruz DO [address] [place] [address] PCP - General Family Medicine 02/08/16 documented as of this encounter
--- OUTSIDE RECORDS SUMMARY | 2024-11-18 23:20 | External Medical Summary | Summary of Care ---
Author Name Unknown Organization [facility] Address [address] [facility] [address] Phone [phone] Care Team Providers Care Budget Manager Name Role Phone Ninfa Cruz DO Primary Care Provider [phone] Reason for Visit * Reason Onset Date Comments Medication Refill 08/16/2024 Encounter Details Date Type Department Care Team (Late st Contact Info) Description 08/16/2024 Refill Family Practice [facility] [address] [facility] [place] [address] Ninfa Cruz DO [address] [place] [address] Gastroesophageal reflux disease with esophagitis without hemorrhage [...] 21 MG/24HR Transdermal Patch 24 Hour (Nicoderm CQ)Indications: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 30 Capsule 4 1:12 PM EDT 06/17/20 24 Active Prochlorperazine Maleate 10 MG Oral [...] MG/3ML Inhalation Solution (Duoneb)Indication s:COPD, moderate ([facility]) Inhale 3 mL via nebulizer in the morning and 3 mL at noon and 3 mL in the evening and 3 mL before bedtime. 180 mL 1 06/13/20 24 Active Fluticasone-Salmet mike 115-21 MCG/ACT Inhalation Aerosol (Advair HFA)Indications:CO PD, group B, by GOLD 2017 classification ([facility]),Intermittent asthma with reliever use up to [...] 12/31/2022 Overview (01/15/2023): UDS + meth 11/23/22 [facility], new onset of paranoia and [...] on overnight PSG 2 [facility] Gastroesophageal reflux disease with esophagitis 03/14/2011 HTN, [...] IM 11/09/2009 Pneumococcal Conjugate Vacci ne, 20-valent ([id number]) 02/04/2023 Pneumococcal Polysaccharide PPV23 (Pneumovax) 01/17/2009 Seasonal [...] Never 06/02/2023 How often do you attend advent or shinto serv ices? Never 06/02/2023 Do you belong to any clubs o r organizations such as advent groups, unions, fraternal or athletic groups, or [...] Recorded PHQ Adult Total Score 0 02/04/2023 [facility] [place] of Occupat ional Health - Occupational [...] Author Yes 06/03/2023 2:49 PM Elda Bowles, Weight Control Lecturer * Do you have difficulty dressing or [...] Notes * Telephone Encounter - Kenisha Sandhu [facility] - 08/18/2024 9:51 AM ESTRefused Prescriptions: Disp Refills Dexlansoprazole 60 MG Oral Capsule Delayed*90 Cap*1 Sig: Take 1Capsule by mouth in the morning.Refused By: KEZIA SANDHUeason for Refusal: Duplicate Request- documented in this encounter Plan of Treatment Upcoming Encounters Date Type Department Care Team (Late st Contact Info) Description 11/10/2024 5:00 PM EST Office Visit Family Practice [facility] [address] [place] [address] Ninfa Cruz DO [address] [place] [address] Health Maintenance Due Date Last Done Comments DISCUSS TOBACCO CESSATION (REFER TO SMARTSET #[id number]) 1965 Cologuard 2008 Sigmoidoscopy 2008 Fecal Occult [...] Directives occurred with: Not Discussed Care Teams Budget Manager Relationship Specialty Start Date End Date Ninfa Cruz DO [address] [place] [address] PCP - General Family Medicine 02/08/16 documented as of this encounter
[2024-11-18] MEDS: TICAGRELOR 90 MG TAB PO SCH (23:21)
--- OUTSIDE RECORDS SUMMARY | 2024-11-18 23:21 | External Medical Summary | Summary of Care ---
Author Name Unknown Organization [facility] Address [address] [place] [facility] [place] [place] [address] Phone [phone] Care Team Providers Care Hide And Skin Classer Name Role Phone Ninfa Cruz DO Primary Care Provider [phone] Reason for Visit * Reason Comments Outpatient Testing Encounter Details Date Type Department Care Team (Late st Contact Info) Description 07/23/2024 1:40 PM EST Laboratory Laboratory Scenery [facility] [address] [place] [id number] [facility] Scenery [address] [place] [address] Iron deficiency anemia, unspecified iron deficiency anemia type; Encounter for long-term (current) use of medications Allergies Active Allergy Reactions Criticality Noted Date [...] as of this encounter (statuses as of 07/23/2024) Medications Fexofenadine HCl 180 MG Oral Tablet (GNP Allergy Relief) Take 1 Tablet by mouth daily as needed for Allergies. 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 30 Patch 04/12/20 24 Active Methocarbamol 500 MG Oral Tablet (Robamol) Take 1 Tablet by mouth 3 times a day as needed for Muscle spasms. 30 Tablet 04/16/20 24 Active Simethicone 80 MG Oral Tablet [...] 4 11:45 AM EDT 05/06/20 24 Active Ondansetron 4 MG Oral Tablet Disintegrating (Zofran)Indication s:Nausea Place 1 Tablet on tongue every 6 hours as needed for Nausea. 90 Tablet 5 05/12/20 24 Active Fluticasone Propionate 50 MCG/ACT Nasal [...] B, by GOLD 2017 classification ([facility]),Intermittent asthma with reliever use up [...] juice. 850 g 1 06/24/20 24 Active Bismuth Subsalicylate 262 MG/15ML Oral Suspension ([employer] Stomach Relief)Indications :Gastroesophageal reflux disease with esophagitis without hemorrhage Take 30 mL by mouth every 6 hours as needed for Nausea or Other (stomach upset). 473 mL 1 07/06/20 24 Active Pregabalin 225 MG Oral Capsule [...] morning. 90 Tablet 1 07/23/20 24 Active documented as of this encounter (statuses as of 07/23/2024) Active Problems Problem Noted Date Diagnosed Date Food insecurity 06/23/2023 Overview: Per [facility] Protocol Severe episode of recurrent major depressive disorder, without psychotic features 06/01/2023 PTSD (post-traumatic stress disorder) 06/01/2023 Cannabis abuse 06/01/2023 Iron deficiency anemia 03/25/2023 Substance abuse 12/31/2022 Overview (01/15/2023): UDS + meth 11/23/22 [facility], new onset of paranoia and confusion UDS [...] very minimal noted on overnight PSG 2 [facility] Gastroesophageal reflux disease with esophagitis 03/14/2011 HTN, goal below 130/80 03/13/2011 Fibromyalgia 04/05/2010 Chronic nausea 04/02/2010 Overview (07/08/2017): ICD-10 update of inactive term Intermittent asthma with rel iever use up to twice per week without complication 01/04/2010 ANDRE (generalized anxiety disorder) 10/24/2009 Dyslipidemia 08/24/2009 Overview (08/24/2009): Per Lipid Taxonomy. Hypothyroidism 05/12/2009 documented as of this encounter (statuses as of 07/23/2024) Resolved Problems Problem Noted Date Diagnosed Date [...] as of this encounter (statuses as of 07/23/2024) Immunizations Name Administration Dates Next Due COVID-19, LNP-s, No Preserve , Lloyd-sucrose, Ages 12+ (Pfizer) 03/20/2022 H1N1 2009 Influenza, IM 11/09/2009 Pneumococcal Conjugate Vacci ne, 20-valent ([id number]) 02/04/2023 Pneumococcal Polysaccharide PPV23 (Pneumovax) 01/17/2009 Seasonal [...] Never 06/02/2023 How often do you attend yazidi or pentecostal serv ices? Never 06/02/2023 Do you belong to any clubs o r organizations such as yazidi groups, unions, fraternal or athletic groups, or [...] Recorded PHQ Adult Total Score 0 02/04/2023 [facility] [place] of Occupat ional Health - Occupational Stress [...] Yes 06/03/2023 2:49 PM EDT Elda Peck, Transport Conductor * Do you have difficulty dressing or [...] Columba Houston RN documented in this encounter Plan of Treatment Upcoming Encounters Date Type Department Care Team (Late st Contact Info) Description 11/10/2024 5:00 PM EST Office Visit Family [facility] [address] [place] [address] Ninfa Cruz, [address] [place] [address] Pending Results Name Type Priority Associated Diagnoses Date /Time FERRITIN Lab Routine Iron deficiency anemia, unspecified iron deficiency anemia type 07/23/2024 1:42 PM EST IRON SCREEN, INCLUDING TIBC Lab Routine Iron deficiency anemia, unspecified iron deficiency anemia type 07/23/2024 1:42 PM EST TSH WITH FREE T4 IF INDICATED Lab Routine Encounter for long-term (current) use of medications 07/23/2024 1:42 PM EST Health Maintenance Due Date Last Done Comments DISCUSS TOBACCO CESSATION (REFER TO SMARTSET #8728) 1965 Cologuard 2008 Sigmoidoscopy 2008 Fecal Occult Blood Test 12/05/2019 12/04/2018 Mammogram 07/04/2021 07/04/2020, 01/15, 08/27/2016, Additional history exists COVID-19 Vaccine (2 - Pfizer risk series) 04/10/2022 03/20/2022 Depression Monitoring 02/05/2024 02/04/2023 GFR 06/01/2024 06/01/2023, 01/14, 01/20/2023, Additional history exists TSH 06/04/2024 06/04/2023, 01/14, 02/04/2023, Additional history exists O2 ASSESSMENT COMPLETED IN PAST YEAR FOR COPD 09/11/2024 09/11/2023 Albumin/Creatinine Ratio 01/03/2025 01/03/2022 Pap Smear 02/04/2026 02/04/2023, 10/17, 05/08/2012, Additional [...] deficiency anemia, unspecified iron deficiency anemia type Encounter for long-term (current) use of medications Encounter for long-term (current) use of other medications documented in this encounter Advance Directives * [...] Directives occurred with: Not Discussed Care Teams Hide And Skin Classer Relationship Specialty Start Date End Date Ninfa Cruz DO [address] [facility] [place] [address] PCP - General Family Medicine 02/08/16 documented as of this encounter
--- OUTSIDE RECORDS SUMMARY | 2024-11-18 23:21 | External Medical Summary ---
Author Name Unknown Address Unknown Organization K01:[facility] [place] [address] [facility] [address] Laboratory Report Ordering Provider Test Date Status CORI NEAL 07/23/2024 13:42:50 Final Observation Date Value Abnormality Reference (Units ) Status Iron 07/23/2024 13:42:50 69 33-151 (ug /dL) Final Iron-binding capacity 07/23/2024 13:42:50 348 250-425 (ug/dL) Final Transferrin Sat % 07/23/2024 13:42:50 20 15 -55 (%) Final Performing Location LAB[facility]ORY [facility] [place] - [address] [facility] [address]
--- OUTSIDE RECORDS SUMMARY | 2024-11-18 23:21 | External Medical Summary ---
Author Name Unknown Address Unknown Organization K01:[facility]ORY [facility] [place] - [address] [facility] [id number] Laboratory Report Ordering Provider Test Date Status ALIA ZABALA 07/23/2024 13:42:50 Final Observation Date Value Abnormality Reference (Units ) Status TSH 07/23/2024 13:42:50 0.44 0.27-4.20 (uIU/mL) Final Performing Location LABORATORY [facility] - [address] [facility] [place] [id number]
--- OUTSIDE RECORDS SUMMARY | 2024-11-18 23:21 | External Medical Summary | Summary of Care ---
Author Name Unknown Organization [facility] Address [address] [facility] [place] [address] Phone [phone] Care Team Providers Care Meatman Name Role Phone Val Persaud DO Primary Care Provider [phone] Reason for Visit * Reason Onset Date Comments Medication Refill 07/27/2024 Encounter Details Date Type Department Care Team (Late st Contact Info) Description 07/27/2024 Refill Family Practice [facility] [address] [facility] [place] [address] Val Persaud DO [address] [place] [address] Allergies Active Allergy Reactions Criticality Noted Date [...] as of this encounter (statuses as of 07/28/2024) Medications Fexofenadine HCl 180 MG Oral Tablet [...] >38C(100.5F). 30 Tablet 1 07/27/20 24 Active Methocarbamol 500 MG Oral Tablet (Robamol) Take 1 Tablet by mouth 3 times a day as needed for Muscle spasms. 30 Tablet 04/16/20 24 024 Discontin ued(Refil l) documented as of this encounter (statuses as of 07/28/2024) Active Problems Problem Noted Date Diagnosed Date Food insecurity 06/23/2023 Overview: Per [facility] Protocol Severe episode of recurrent major depressive disorder, without psychotic features 06/01/2023 PTSD (post-traumatic stress disorder) 06/01/2023 Cannabis abuse 06/01/2023 Iron deficiency anemia 03/25/2023 Substance abuse 12/31/2022 Overview (01/15/2023): UDS + meth 11/23/22 [place], new onset of paranoia and confusion UDS + metha/amphetamine on 04/25/23 COPD, group B, by GOLD 2017 classification [...] very minimal noted on overnight PSG 2 [facility] Gastroesophageal reflux disease with esophagitis 03/14/2011 HTN, goal below 130/80 03/13/2011 Fibromyalgia 04/05/2010 Chronic nausea 04/02/2010 Overview (07/08/2017): ICD-10 update of inactive term Intermittent asthma with rel iever use up to twice per week without complication 01/04/2010 ANDRE (generalized anxiety disorder) 10/24/2009 Dyslipidemia 08/24/2009 Overview (08/24/2009): Per Lipid Taxonomy. Hypothyroidism 05/12/2009 documented as of this encounter (statuses as of 07/28/2024) Resolved Problems Problem Noted Date Diagnosed Date [...] as of this encounter (statuses as of 07/28/2024) Immunizations Name Administration Dates Next Due COVID-19, LNP-s, No Preserve , Lloyd-sucrose, Ages 12+ (Pfizer) 03/20/2022 H1N1 2009 Influenza, IM 11/09/2009 Pneumococcal Conjugate Vacci ne, 20-valent ([id number]) 02/04/2023 Pneumococcal Polysaccharide PPV23 (Pneumovax) 01/17/2009 Seasonal [...] Never 06/02/2023 How often do you attend congregational or advent serv ices? Never 06/02/2023 Do you belong to any clubs o r organizations such as congregational groups, unions, fraternal or athletic groups, or [...] Score 0 02/04/2023 [facility] of Occupat ional Health - Occupational [...] No 12/22/2023 Does the household have a unm carrie tingley hospitallar source of income? (Household - for [...] Yes 06/03/2023 2:49 PM EDT Elda Peck, Auto Design Detailer * Do you have difficulty dressing or [...] Telephone Encounter - Val Persaud DO - 07/28/2024 1:17 PM ESTSigned Prescriptions: Disp Refills Methocarbamol 500 MG Oral Tablet (Robamol) 30 Tab*0 Sig: Take 1 Tablet by mouth 3 times a day as needed for Muscle spasms. Authorizing Provider: VAL PERSAUD * Telephone Encounter - Julio Parker [facility] - 07/28/2024 10:34 AM EST Pending Prescriptions: Disp Refills Methocarbamol 500 MG Oral Tablet (Robamol) 30 Tab*0 Sig: Take 1 Tablet by mouth 3 times a day as needed for Muscle spasms. * Telephone Encounter - Julio Parker RPh - 07/28/2024 10:34 AM EST Pending Prescriptions: Disp Refills Methocarbamol 500 MG Oral Tablet (Robamol) 30 Tab*0 Sig: Take 1 Tablet by mouth 3 times a day as needed for Muscle spasms. 06/24/2023 (in office), 04/23/2022 (telemedicine) 11/10/2024 If no future appointments scheduled, and last appointment is greater than a year ago, please schedule patient for a follow-up appointment Last date the medication was ordered: 04/16/24 Pharmacy: [id number] [place] Is this request for a controlled substance?No Patient Phone Numbers Labs: Lab Results Component [...] 11/10/2024 5:00 PM EST Office Visit Family [facility] [address] [place] [address] Val Persaud DO [address] [place] [address] Health Maintenance Due Date Last Done Comments DISCUSS TOBACCO CESSATION (REFER TO SMARTSET #8283) 1965 Cologuard 2008 Sigmoidoscopy 2008 Fecal Occult [...] Directives occurred with: Not Discussed Care Teams Meatman Relationship Specialty Start Date End Date Val Persaud DO [address] [place] [address] PCP - General Family Medicine 02/08/16 documented as of this encounter
--- OUTSIDE RECORDS SUMMARY | 2024-11-18 23:21 | External Medical Summary ---
Author Name Unknown Address Unknown Organization K01:LABORATORY [facility] [place] - [address] [place] [address] Laboratory Report Ordering Provider Test Date Status CORI NEAL 07/23/2024 13:42:50 Final Observation Date Value Abnormality Reference (Units ) Status Ferritin 07/23/2024 13:42:50 39 13-150 (ng /mL) Final Postmenopausal women have hi gher ferritin levels than pre-menopausal women. The above reference interval is based on pre-menopausal women. Performing Location LAB[facility]ATORY [facility] - [address] [place] [address]
--- OUTSIDE RECORDS SUMMARY | 2024-11-18 23:21 | External Medical Summary | Summary of Care ---
Author Name Unknown Organization [facility] Address [address] [facility] [place] [address] Phone [phone] Care Team Providers Care Executive Associate Name Role Phone Ninfa Cruz DO Primary Care Provider [phone] Reason for Visit * Reason Onset Date Comments Medication Refill 07/23/2024 Encounter Details Date Type Department Care Team (Late st Contact Info) Description 07/23/2024 Refill Family Practice [facility] [address] [facility] [place] [address] Ninfa Cruz DO [address] [place] [address] Allergies Active Allergy Reactions Criticality Noted Date [...] as of this encounter (statuses as of 07/26/2024) Medications Fexofenadine HCl 180 MG Oral Tablet (GNP Allergy Relief) Take 1 Tablet by mouth daily as needed for Allergies. 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 90 Tablet 5 07/26/20 24 Active documented as of this encounter (statuses as of 07/26/2024) Active Problems Problem Noted Date Diagnosed Date Food insecurity 06/23/2023 Overview: Per [facility] Protocol Severe episode of recurrent major depressive disorder, without psychotic features 06/01/2023 PTSD (post-traumatic stress disorder) 06/01/2023 Cannabis abuse 06/01/2023 Iron deficiency anemia 03/25/2023 Substance abuse 12/31/2022 Overview (01/15/2023): UDS + meth 11/23/22 [facility], new onset of paranoia and confusion [...] very minimal noted on overnight PSG 2 [facility] Gastroesophageal reflux disease with esophagitis 03/14/2011 HTN, goal below 130/80 03/13/2011 Fibromyalgia 04/05/2010 Chronic nausea 04/02/2010 Overview (07/08/2017): ICD-10 update of inactive term Intermittent asthma with rel iever use up to twice per week without complication 01/04/2010 ANDRE (generalized anxiety disorder) 10/24/2009 Dyslipidemia 08/24/2009 Overview (08/24/2009): Per Lipid Taxonomy. Hypothyroidism 05/12/2009 documented as of this encounter (statuses as of 07/26/2024) Resolved Problems Problem Noted Date Diagnosed Date [...] as of this encounter (statuses as of 07/26/2024) Immunizations Name Administration Dates Next Due COVID-19, LNP-s, No Preserve , Lloyd-sucrose, Ages 12+ (Pfizer) 03/20/2022 H1N1 2009 Influenza, IM 11/09/2009 Pneumococcal Conjugate Vacci ne, 20-valent ([id number]) 02/04/2023 Pneumococcal Polysaccharide PPV23 (Pneumovax) 01/17/2009 Seasonal [...] How often do you attend confucianism or restorationist serv ices? Never 06/02/2023 Do you belong [...] Recorded PHQ Adult Total Score 0 02/04/2023 [facility] [place] of Occupat ional Health - Occupational Stress [...] Yes 06/03/2023 2:49 PM EDT Elda Peck, Ac/Dc Rewinder * Do you have difficulty dressing or [...] 11/10/2024 5:00 PM EST Office Visit Family [facility] [address] [place] [address] Ninfa Cruz DO [address] [place] [address] Health Maintenance Due Date Last Done Comments DISCUSS TOBACCO CESSATION (REFER TO SMARTSET #8826) 1965 Cologuard 2008 Sigmoidoscopy 2008 Fecal Occult [...] Directives occurred with: Not Discussed Care Teams Executive Associate Relationship Specialty Start Date End Date Ninfa Cruz DO [address] [place] [address] PCP - General Family Medicine 02/08/16 documented as of this encounter
--- OUTSIDE RECORDS SUMMARY | 2024-11-18 23:21 | External Medical Summary | Summary of Care ---
Author Name Unknown Organization [facility] Address [address] [facility] [place] [address] Phone [phone] Care Team Providers Care Assistant Sales Manager Name Role Phone Val Persaud DO Primary Care Provider [phone] Reason for Visit * Reason Onset Date Comments Medication Refill 07/23/2024 Encounter Details Date Type Department Care Team (Late st Contact Info) Description 07/23/2024 Refill Family Practice [facility] [address] [place] [address] Val Persaud DO [address] [place] [address] Allergies Active Allergy Reactions Criticality Noted Date [...] Nausea. 90 Tablet 5 07/26/20 24 Active Ondansetron 4 MG Oral Tablet Disintegrating (Zofran)Indicatio ns:Nausea Place 1 Tablet on tongue every 6 hours as needed for Nausea. 90 Tablet 5 05/12/20 24 024 Discontin ued(Refil l) documented as [...] (01/15/2023): UDS + meth 11/23/22 [facility], new onset of paranoia and [...] minimal noted on overnight PSG 2 [facility] Gastroesophageal reflux disease with esophagitis 03/14/2011 [...] IM 11/09/2009 Pneumococcal Conjugate Vacci ne, 20-valent ([id number]) 02/04/2023 Pneumococcal Polysaccharide PPV23 (Pneumovax) 01/17/2009 Seasonal [...] How often do you attend restorationism or jew serv ices? Never 06/02/2023 Do [...] Recorded PHQ Adult Total Score 0 02/04/2023 [facility] [place] of Occupat ional Health - Occupational Stress [...] Yes 06/03/2023 2:49 PM EDT Elda Peck, Head Gauge Unit Operator * Do you have difficulty dressing [...] Telephone Encounter - Val Persaud DO - 07/26/2024 11:07 AM ESTSigned Prescriptions: Disp Refills Ondansetron 4 MG Oral Tablet Disintegratin*90 Tab*5 Sig: Place 1 Tablet on tongue every 6 hours as needed for Nausea. Authorizing Provider: VAL PERSAUD * Telephone Encounter - Usha Cano RPh - 07/26/2024 8:28 AM EST Pending Prescriptions: Disp Refills Ondansetron 4 MG Oral Tablet Disintegratin*90 Tab*5 Sig: Place1 Tablet on tongue every 6 hours as needed for Nausea. documented in this encounter Plan of Treatment Upcoming Encounters Date Type Department Care Team (Late st Contact Info) Description 11/10/2024 5:00 PM EST Office Visit Family Practice [facility] [address] [place] [address] Val Persaud DO [address] [place] [address] Health Maintenance Due Date Last Done Comments DISCUSS TOBACCO CESSATION (REFER TO SMARTSET #0113) 1965 Cologuard 2008 Sigmoidoscopy 2008 Fecal Occult [...] Directives occurred with: Not Discussed Care Teams Assistant Sales Manager Relationship Specialty Start Date End Date Val Persaud DO [address] [place] [address] PCP - General Family Medicine 02/08/16 documented as of this encounter
--- OUTSIDE RECORDS SUMMARY | 2024-11-18 23:21 | External Medical Summary | Summary of Care ---
Author Name Unknown Organization [facility] Address [address] [facility] [place] [address] Phone [phone] Care Team Providers Care Technical Marketing Consultant Name Role Phone Ninfa Cruz DO Primary Care Provider Reason for Visit * Reason Onset Date Comments Medication Refill 08/09/2024 Encounter Details Date Type Department Care Team (Late st Contact Info) Description 08/09/2024 Refill Family Practice [facility] [address] [facility] [place] [address] Ninfa Cruz DO [address] [place] [address] Chronic pain syndrome Allergies Active Allergy Reactions [...] as of this encounter (statuses as of 08/10/2024) Medications Fexofenadine HCl 180 MG Oral Tablet (GNP Allergy Relief) Take 1 Tablet by mouth daily as needed for Allergies. 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),Tobacco use disorder Place 1 [...] PD, group B, by GOLD 2017 classification ([facility]),Intermittent asthma with reliever use up [...] as of this encounter (statuses as of 08/10/2024) Active Problems Problem Noted Date Diagnosed Date Food insecurity 06/23/2023 Overview: Per [facility] Protocol Severe episode of recurrent major depressive disorder, without psychotic features 06/01/2023 PTSD (post-traumatic stress disorder) 06/01/2023 Cannabis abuse 06/01/2023 Iron deficiency anemia 03/25/2023 Substance abuse 12/31/2022 Overview (01/15/2023): UDS + meth 11/23/22 [facility], new onset of paranoia and confusion UDS [...] as of this encounter (statuses as of 08/10/2024) Resolved Problems Problem Noted Date Diagnosed Date [...] as of this encounter (statuses as of 08/10/2024) Immunizations Name Administration Dates Next Due COVID-19, LNP-s, No Preserve , Lloyd-sucrose, Ages 12+ (Pfizer) 03/20/2022 H1N1 2009 Influenza, IM 11/09/2009 Pneumococcal Conjugate Vacci ne, 20-valent ([id number]) 02/04/2023 Pneumococcal Polysaccharide PPV23 (Pneumovax) 01/17/2009 Seasonal [...] Never 06/02/2023 How often do you attend alevism or caodaism serv ices? Never 06/02/2023 Do you belong to any clubs o r organizations such as alevism groups, unions, fraternal or athletic groups, or [...] PHQ Adult Total Score 0 02/04/2023 [facility] of Occupat ional Health - Occupational [...] Author Yes 06/03/2023 2:49 PM EDElda Schmitz, Medical Research Associate * Do you have difficulty dressing or [...] Notes * Telephone Encounter - Beverley Zambrano [facility] - 08/10/2024 1:18 PM EST Refused Prescriptions: Disp Refills Pregabalin 225 MG Oral Capsule (Lyrica) 180 Ca*3 Sig: Take 1 Capsule by mouth in the morning and 1 Capsule before bedtime.Refused By: BEVERLEY ZAMBRANO for Refusal: Too soon documented in this encounter Plan of Treatment Upcoming Encounters Date Type Department Care Team (Late st Contact Info) Description 11/10/2024 5:00 PM EST Office Visit Family Practice [facility] [address] [place] [address] Ninfa Cruz, [address] [place] [address] Health Maintenance Due Date Last Done Comments DISCUSS TOBACCO CESSATION (REFER TO SMARTSET #1359) 1965 Cologuard 2008 Sigmoidoscopy 2008 Fecal Occult [...] patient have Health Care Power of Attor sydea? No * Full Code Date Activated Date Inactivated Comments 09/01/2019 12:05 PM 09/03/2019 5:41 PM This orde r reflects the patients wishes and were consensually agreed upon. * Full Code Date Activated Date Inactivated Comments 09/01/2019 7:07 AM 09/01/2019 12:05 PM Question Answer Comments Discussion of Advance Directives occurred with: Not Discussed Care Teams Technical Marketing Consultant Relationship Specialty Start Date End Date Ninfa Cruz DO [address] [place] [address] PCP - General Family Medicine 02/08/16 documented as of this encounter
--- OUTSIDE RECORDS SUMMARY | 2024-11-18 23:21 | External Medical Summary | Summary of Care ---
Author Name Unknown Organization [facility] Address [address] [facility] [place] [address] Phone [phone] Care Team Providers Care Front End Developer Name Role Phone Val Persaud DO Primary Care Provider [phone] Reason for Visit * Reason Onset Date Comments Medication Refill 07/23/2024 Encounter Details Date Type Department Care Team (Late st Contact Info) Description 07/23/2024 Refill Family [facility] [address] [facility] [place] [address] Val Persaud DO [address] [place] [address] Allergies Active Allergy Reactions Criticality Noted Date [...] 21 MG/24HR Transdermal Patch 24 Hour (Nicoderm CQ)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 Never 06/02/2023 Do you belong [...] Recorded PHQ Adult Total Score 0 02/04/2023 [facility] [place] of Occupat ional Health - Occupational Stress [...] Yes 06/03/2023 2:49 PM EDT Elda Peck, Construction Checker * Do you have difficulty dressing or [...] Telephone Encounter - Val Persaud DO - 07/23/2024 1:13 PM ESTSigned Prescriptions: Disp Refills Vitamin D3 25 MCG (1000 UT) Oral Tablet (V*90 Tab*1 Sig: Take 1 Tablet by mouth in the morning. Authorizing Provider: VAL PERSAUD * Telephone Encounter - Gregg Tatum LPN - 07/23/2024 9:47 AM EST Images from the original note were not included. Beata calling in today to update address and phone # due to just moving. She is requesting Vitamin D refill. 06/14- Vitamin D 00950 wkly and on 02/19/24 was advised to take Vitamin D 1000 IU daily. Component Ref Range & Units 5 mo ago 25-Hydroxy Vitamin D >19 ng/mL 21 Do you want her to take 50,000 wkly or 1000 daily? Asking to be sent to pharmacy do due to financially unable to afford OTC. Please advice documented in this encounter Plan of Treatment Upcoming Encounters Date Type Department Care Team (Late st Contact Info) Description 11/10/2024 5:00 PM EST Office Visit [facility] [address] [place] [address] Val Persaud DO [address] [place] [address] Health Maintenance Due Date Last Done Comments DISCUSS TOBACCO CESSATION (REFER TO SMARTSET #8047) 1963 Cologuard 2008 Sigmoidoscopy 2008 Fecal Occult [...] Directives occurred with: Not Discussed Care Teams Front End Developer Relationship Specialty Start Date End Date Val Persaud DO [address] [place] [address] PCP - General Family Medicine 02/08/16 documented as of this encounter
--- OUTSIDE RECORDS SUMMARY | 2024-11-18 23:21 | External Medical Summary | Summary of Care ---
Author Name Unknown Organization [facility] Address [address] [facility] [place] [address] Phone [phone] Care Team Providers Care Environmental Health Sanitarian Name Role Phone Ninfa Cruz DO Primary Care Provider Reason for Visit * Reason Onset Date Comments Medication Refill 05/07/2024 Encounter Details Date Type Department Care Team (Late st Contact Info) Description 05/07/[address] [facility] [address] [facility] [place] [address] Ninfa Cruz DO [address] [place] [address] Moderate episode of recurrent major depressive disorder [...] as of this encounter (statuses as of 08/05/2024) Medications Fexofenadine HCl 180 MG Oral Tablet (GNP Allergy Relief) Take 1 Tablet by mouth daily as needed for Allergies. 30 Tablet 11 12/24/2023 11:59 AM EDT 3 Active Nicotine 21 MG/24HR Transdermal Patch 24 Hour (Nicoderm CQ)Indications:C OPD, moderate (HCC),Tobacco use disorder Place 1 Patch over 24 hours topically on the skin daily. 28 Patch 1 08/04/2023 11:13 AM EST 3 Active Vitamin B-12 1000 MCG Oral Tablet (Cyanocobalamin) Indications:Meme min Deficiency Prophylaxis Take 1 Tablet by mouth in the morning. 100 Tablet 3 03/11/2024 9:26 AM EDT 4 Active Nicotine Polacrilex 2 MG Mouth/Throat Gum (Nicorette) Chew one piece of gum every 1 to 2 hours for the first 6 weeks, then 1 every 2 to 4 hours for weeks 7 to 9, then 1 every 4 to 8 hours. 120 Each 1 10/28/2023 5:24 PM EST 4 Active Nicotine Polacrilex 4 MG Mouth/Throat Gum (GNP Nicotine Polacrilex)Indic ations:Tobacco use Chew one piece of gum every 1 to 2 hours for the first 6 weeks, then 1 every 2 to 4 hours for weeks 7 to 9, then 1 every 4 to 8 hours. 110 Each 02/11/2024 10:41 AM EDT 4 Active Sucralfate 1 GM/10ML Oral Suspension (Carafate)Indica tions:Gastroesop hageal reflux disease with esophagitis without hemorrhage Take 10 mL by mouth in the morning and 10 mL at noon and 10 mL in the evening and 10 mL before bedtime. 420 mL 1 4 Active Benzonatate 100 MG Oral Capsule (Tessalmalu Perlmarifer)Indicatio ns:Suspected COVID-19 virus infection,Dry cough Take 1 Capsule by mouth 3 times a day as needed for Cough. Do not cut, crush, or chew. 30 Capsule 03/08/2024 1:12 PM EDT 4 Active Dexlansoprazole 60 MG Oral Capsule Delayed Release (Dexilant)Indica tions:Gastroesop hageal reflux disease with esophagitis without hemorrhage Take 1 Capsule by mouth in the morning. 90 Capsule 1 4 Active Prochlorperazine Maleate 10 MG Oral Tablet (Compazine) TAKE ONE TABLET BY MOUTH EVERY 6 HOURS NEEDED FOR NAUSEA 120 Tablet 2 04/08/2024 11:10 AM EDT 4 Active Lidocaine 5 % External Patch (Lidoderm)Indica tions:Personal history of fall,Closed fracture of one rib of left side, initial encounter Place 1 Patch over 12 hours topically on the skin daily. 30 Patch 4 Active Simethicone 80 MG Oral Tablet Chewable (Gas Relief)Indicatio ns:Gas Pain Take 1 Tablet by mouth every 6 hours as needed for Gas. 30 Tablet 5 4 Active Ferrous Sulfate 325 (65 Fe) MG Oral Tablet (FeroSul)Indicat ions:Anemia Take 1 Tablet by mouth in the morning and 1 Tablet at noon and 1 Tablet in the evening. Take with meals. 90 Tablet 2 4 Active Venlafaxine HCl ER 75 MG Oral Capsule Extended Release 24 Hour (Effexor XR)Indications:M oderate episode of recurrent major depressive disorder (HCC) Take 1 Capsule by mouth in the morning. Do not cut, crush or chew. 90 Capsule 1 05/07/2024 11:45 AM EDT 4 Active documented as of this encounter (statuses as of 08/05/2024) Active Problems Problem Noted Date Diagnosed Date Food insecurity 06/23/2023 Overview: Per [facility] Protocol Severe episode of recurrent major [...] as of this encounter (statuses as of 08/05/2024) Resolved Problems Problem Noted Date Diagnosed Date [...] as of this encounter (statuses as of 08/05/2024) Immunizations Name Administration Dates Next Due COVID-19, LNP-s, No Preserve , Lloyd-sucrose, Ages 12+ (Pfizer) 03/20/2022 H1N1 2009 Influenza, IM 11/09/2009 Pneumococcal Conjugate Vacci ne, 20-valent ([id number]) 02/04/2023 Pneumococcal Polysaccharide PPV23 (Pneumovax) 01/17/2009 Seasonal [...] How often do you attend restoration or episcopalian serv ices? Never 06/02/2023 Do [...] Adult Total Score 0 02/04/2023 [facility] of Occupat ional Health - Occupational Stress [...] No 12/22/2023 Does the household have a [facility] hospital[facility] source of income? (Household - for [...] Yes 06/03/2023 2:49 PM EDT Elda Peck, Neon Sign Worker * Do you have difficulty dressing or [...] encounter Miscellaneous Notes * Telephone Encounter - Nighat Treviño MED ASSIST - 05/07/2024 11:14 AM EDT Newhouser sent in yesterday. * Telephone Encounter - Joanne Vidal KATIA - 05/07/2024 10:46 AM EDT Did you pend patient's preferred pharmacy and medication before forwarding?no Pharmacy: [id number] Pending Prescriptions: Disp Refills Venlafaxine HCl ER 75 MG Oral Capsule Ext*90 Cap*1 Sig: Take 1 Capsule by mouth in the morning. Do not cut, crush or chew. Last Visit: 06/24/2023 (in office), 04/23/2022 (telemedicine) Next Visit: 11/10/2024 If no future appointments scheduled, and last appointment is greater than a year ago, please schedule patient for a follow-up appointment Last date the medication was ordered: [id number] Is this request for a controlled substance?No [...] PM POTASSIUM 3.9 04/20/2020 12:21 PM TSH 1.25 06/04/2023 05:29 AM TSH 1.85 03/24/2020 12:18 PM LDLCALC 114 06/03/2023 06:00 AM LDLCALC 77 11/21/2022 12:00 AM LDLCALC UNINTERPRETABLE RESULT 02/19/2019 10:16 AM LDLDIRECT 206 (H) 03/24/2020 12:18 PM ALT 15 02/04/2023 12:29 PM ALT 96 (H) 05/19/2020 08:32 AM HGBA1C 5.5 02/04/2023 12:29 PM HGBA1C 5.4 12/20/2019 01:23 PM documented in this encounter Plan of Treatment Upcoming Encounters Date Type Department Care Team (Late st Contact Info) Description 11/10/2024 5:00 PM EST Office Visit Family Practice [facility] [address] [place] [address] Ninfa Cruz DO [address] [place] [address] Health Maintenance Due Date Last Done Comments DISCUSS TOBACCO CESSATION (REFER TO SMARTSET #2632) 1965 Cologuard 2008 Sigmoidoscopy 2008 Fecal Occult [...] Directives occurred with: Not Discussed Care Teams Environmental Health Sanitarian Relationship Specialty Start Date End Date Ninfa Cruz DO [address] [place] [address] PCP - General Family Medicine 02/08/16 documented as of this encounter
--- OUTSIDE RECORDS SUMMARY | 2024-11-18 23:22 | External Medical Summary | Summary of Care ---
Author Name Unknown Organization [facility] Address [address] [facility] [place] [address] Phone [phone] Care Team Providers Care Computing Machine Operator Name Role Phone Val Persaud DO Primary Care Provider [phone] Reason for Referral * Medication Prior Authorization - Closed Specialty Diagnoses / Procedures Referred By Contchen t Referred To Contact Diagnoses Chronic pain syndrome Val Persaud DO [address] [place] [address] Referral ID Status Reason Start Date Expiration Date Visits Re quested Visits Authorized [id number] Closed [phone] Encounter Details Date Type Department Care Team (Late st Contact Info) Description 07/20/2024 Refill Family Practice [facility] [address] [place] [address] Val Persaud DO [address] [place] [address] Chronic pain syndrome* Allergies Active Allergy Reactions Criticality Noted Date [...] as of this encounter (statuses as of 07/20/2024) Medications Medication Sig Dispensed Refills Start Date End Date Status Fexofenadine HCl 180 MG Oral Tablet (GNP Allergy Relief) Take 1 Tablet by mouth daily as needed for Allergies. 30 Tablet 11 3 Active Nicotine 21 MG/24HR Transdermal Patch 24 Hour (Nicoderm CQ)Indications:COPD , moderate (HCC),Tobacco use disorder Place 1 Patch over 24 hours topically on the skin daily. 28 Patch 1 3 Active Vitamin B-12 1000 MCG Oral Tablet (Cyanocobalamin)Ind ications:Vitamin Deficiency Prophylaxis Take 1 Tablet by mouth in the morning. 100 Tablet 3 4 Active Nicotine Polacrilex 2 MG Mouth/Throat Gum (Nicorette) Chew one piece of gum every 1 to 2 hours for the first 6 weeks, then 1 every 2 to 4 hours for weeks 7 to 9, then 1 every 4 to 8 hours. 120 Each 1 4 Active Nicotine Polacrilex 4 MG Mouth/Throat Gum (GNP Nicotine Polacrilex)Indicati ons:Tobacco use Chew one piece of gum every 1 to 2 hours for the first 6 weeks, then 1 every 2 to 4 hours for weeks 7 to 9, then 1 every 4 to 8 hours. 110 Each 4 Active Sucralfate 1 GM/10ML Oral Suspension (Carafate)Indicatio ns:Gastroesophageal reflux disease with esophagitis without hemorrhage Take 10 mL by mouth in the morning and 10 mL at noon and 10 mL in the evening and 10 mL before bedtime. 420 mL 1 4 Active Benzonatate 100 MG Oral Capsule (Tessalon Perles)Indications: Suspected COVID-19 virus infection,Dry cough Take 1 Capsule by mouth 3 times a day as needed for Cough. Do not cut, crush, or chew. 30 Capsule 4 Active Dexlansoprazole 60 MG Oral Capsule Delayed Release (Dexilant)Indicatio ns:Gastroesophageal reflux disease with esophagitis without hemorrhage Take 1 Capsule by mouth in the morning. 90 Capsule 1 4 Active Prochlorperazine Maleate 10 MG Oral Tablet (Compazine) TAKE ONE TABLET BY MOUTH EVERY 6 HOURS NEEDED FOR NAUSEA 120 Tablet 2 4 Active Albuterol Sulfate HFA 108 (90 Base) MCG/ACT Inhalation Aerosol SolutionIndications :COPD with Bronchospasms Prophylaxis Inhale 2 Puffs by mouth every 6 hours as needed for Dyspnea. 54 g 4 Active Lidocaine 5 % External Patch (Lidoderm)Indicatio ns:Personal history of fall,Closed fracture of one rib of left side, initial encounter Place 1 Patch over 12 hours topically on the skin daily. 30 Patch 4 Active Methocarbamol 500 MG Oral Tablet (Robamol) Take 1 Tablet by mouth 3 times a day as needed for Muscle spasms. 30 Tablet 4 Active Simethicone 80 MG Oral Tablet Chewable (Gas Relief)Indications: Gas Pain Take 1 Tablet by mouth every 6 hours as needed for Gas. 30 Tablet 5 4 Active Ferrous Sulfate 325 (65 Fe) MG Oral Tablet (FeroSul)Indication s:Anemia Take 1 Tablet by mouth in the morning and 1 Tablet at noon and 1 Tablet in the evening. Take with meals. 90 Tablet 2 4 Active Venlafaxine HCl ER 75 MG Oral Capsule Extended Release 24 Hour (Effexor XR)Indications:Mode rate episode of recurrent major depressive disorder (HCC) Take 1 Capsule by mouth in the morning. Do not cut, crush or chew. 90 Capsule 1 4 Active Ondansetron 4 MG Oral Tablet Disintegrating (Zofran)Indications :Nausea Place 1 Tablet on tongue every 6 hours as needed for Nausea. 90 Tablet 5 4 Active Fluticasone Propionate 50 MCG/ACT Nasal Suspension (Flonase)Indication s:Asthma Administer 2 Sprays into nostril 2 times a day as needed for Congestion. 16 g 5 4 Active Phenazopyridine HCl 200 MG Oral Tablet (Pyridium)Indicatio ns:Dysuria Take 1 Tablet by mouth 3 times a day as needed for Pain, Mild. After meals for pain with urination 20 Tablet 3 4 Active Dicyclomine HCl 10 MG Oral Capsule (Bentyl)Indications :Abdominal Distress Take 2 Capsules by mouth 4 times a day as needed for Other (abdominal pain). 120 Capsule 4 Active Levothyroxine Sodium 75 MCG Oral Tablet (Levoxyl)Indication s:Hypothyroidism Take 1 Tablet by mouth daily first thing in the morning. 90 Tablet 1 4 Active Loratadine 10 MG Oral Tablet (Claritin)Indicatio ns:Allergic Rhinitis Take 1 Tablet by mouth in the morning. 30 Tablet 5 4 Active Nicotine 14 MG/24HR Transdermal Patch 24 Hour (Nicoderm CQ)Indications:Toba senior financial accountant use disorder PLACE 1 PATCH OVER 24 HOURS TOPICALLY ON THE SKIN DAILY 28 Patch 4 Active Ipratropium-Albuter ol 0.5-2.5 (3) MG/3ML Inhalation Solution (Duoneb)Indications :COPD, moderate (HCC) Inhale 3 mL via nebulizer in the morning and 3 mL at noon and 3 mL in the evening and 3 mL before bedtime. 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 12 g 12 4 Active QUEtiapine Fumarate 25 MG Oral Tablet (SEROquel)Indicatio ns:Anxiety Take 1 Tablet by mouth every 8 hours as needed for Anxiety. 30 Tablet 4 Active Estradiol 0.1 MG/GM Vaginal Cream (Estrace)Indication s:Menopause USE 1/4 OF APPLICATORFUL 2 TO 3 TIMES PER WEEK. 42.5 g 2 4 Active Bismuth Subsalicylate 262 MG/15ML Oral Suspension ([facility] Stomach Relief)Indications: Gastroesophageal reflux disease with esophagitis without hemorrhage Take 30 mL by mouth every 6 hours as needed for Nausea. 473 mL 1 4 Active Polyethylene Glycol 3350 17 GM/SCOOP Oral Powder (MiraLax)Indication s:Constipation, unspecified constipation type Take 17 g by mouth as needed for Constipation. Dissolve one heaping tablespoon in 8 ounces of water or juice. 850 g 1 4 Active Bismuth Subsalicylate 262 MG/15ML Oral Suspension ([employer] Stomach Relief)Indications: Gastroesophageal reflux disease with esophagitis without hemorrhage Take 30 mL by mouth every 6 hours as needed for Nausea or Other (stomach upset). 473 mL 1 4 Active Pregabalin 225 MG Oral Capsule (Lyrica)Indications :Chronic pain syndrome Take 1 Capsule by mouth in the morning and 1 Capsule before bedtime. 180 Capsule 3 4 Active Lyrica 225 MG Oral CapsuleIndications: Chronic pain syndrome Take 1 Capsule by mouth in the morning and 1 Capsule before bedtime. 60 Capsule 3 4 07/20/20 24 Discontinu ed(Formula ry/Cost) documented as of this encounter (statuses as of 07/20/2024) Active Problems Problem Noted Date Diagnosed Date Food insecurity 06/23/2023 Overview: Per [facility] Protocol Severe episode of recurrent major depressive disorder, without psychotic features 06/01/2023 PTSD (post-traumatic stress disorder) 06/01/2023 Cannabis abuse 06/01/2023 Iron deficiency anemia 03/25/2023 Substance abuse 12/31/2022 Overview: UDS + meth 11/23/22 [facility], new onset of paranoia and confusion UDS + metha/amphetamine on 01/07/23 COPD, group B, by GOLD 2017 classification 07/24 Overview: Per COPD GOLD Classification Fibroids, intramural 02/02/2020 Overview: Pelvic sono: 02/01/20 IMPRESSION 1. A 9 mm intramural posterior uterine body fibroid, mildly increased in size. Myometrium is heterogeneous in echogenicity. 2. Mildly thick endometrium measuring 6 mm, without significant change. 3. 8 mm focal calcification in the right ovary, unchanged. Ovarian cyst 12/28/2019 Overview: 11/11/2019 pelvic ultrasound IMPRESSION 1. Borderline thickened [...] acid dehydrogenase (LDH) 06/23/2012 Nocturnal hypoxemia 04/29/2012 Overview: very minimal noted on overnight PSG 2 [facility] Gastroesophageal reflux disease with esophagitis 03/14/2011 HTN, goal below 130/80 03/13/2011 Fibromyalgia 04/05/2010 Chronic nausea 04/02/2010 Overview: ICD-10 update of inactive term Intermittent asthma with rel iever use up to twice per week without complication 01/04/2010 ANDRE (generalized anxiety disorder) 10/24/2009 Dyslipidemia 08/24/2009 Overview: Per Lipid Taxonomy. Hypothyroidism 05/12/2009 documented as of this encounter (statuses as of 07/20/2024) Resolved Problems Problem Noted Date Diagnosed Date Resolved Date Sore throat 12/06/2020 06/13/2021 Rhinitis, nonallergic 06/23/20172019 COPD, moderate 06/23/2017 07/27/2020 Overview: Per COPD GOLD Classification Sinus congestion 02/09/2017 08/11/2017 Dysfunction of eustachian tube 02/09/2017 06/30/2018 TERMINATED MEDICATION USAGE AGREEMENT 02/27/2016 03/01/2017 Statin intolerance 08/13/2012 8 INFORMATION 05/04/2012 03/01/2017 Overview: Please do not prescribe narcotics for this [...] 05/03/201002/09 Dyspnea and respiratory abnormality 05/03/2010 02/09/2017 Overview: ICD-10 update of inactive term Deviated nasal septum 05/03/20102019 Chronic rhinitis 05/02/2010 06/23/2017 Acute sinusitis 04/02/2010 01/18/2011 Palpitations 03/12/2010 06/30/2018 Family history of premature CAD 03/12/2010 08/11/2017 Acute sinusitis 02/27/2010 01/18/2011 Other chronic allergic conjunctivitis 10/26/2009 06/23/2017 Mixed dyslipidemia 05/12/2009 9 Overview: Per Lipid Taxonomy. Abnormal results of liver function studies 05/12/2009 02/09/2017 Chronic sinusitis 04/06/2009 01/30/2017 Dysfunction of eustachian tube 04/06/2009 01/30/2017 Tobacco use disorder 04/06/2009 011 Gastroparesis 01/11/2009 06/30/2018 ALLERGIC RHINITIS - MIXED TYPE 12/27/2008 06/23/2017 Chronic diarrhea 11/30/2008 05/05/2009 Esophageal reflux 11/02/2008 02/09/2017 Abdominal pain, epigastric 0 02/09/2017 Chest pain, musculoskeletal 01/30/2017 Temporomandibular joint diso rders, unspecified 08/11/2017 Thrush 06/06/2017 Overview: Recurrent - oral and esophageal - please try to limit abx courses and steroid courses! documented as of this encounter (statuses as of 07/20/2024) Immunizations Name Administration Dates Next Due COVID-19, LNP-s, No Preserve , Lloyd-sucrose, Ages 12+ (Pfizer) 03/20/2022 H1N1 2009 Influenza, IM 11/09/2009 Pneumococcal Conjugate Vacci ne, 20-valent ([id number]) 02/04/2023 Pneumococcal Polysaccharide PPV23 (Pneumovax) 01/17/2009 Seasonal [...] Never 06/02/2023 How often do you attend cheondoism or taoist serv ices? Never 06/02/2023 Do you belong to any clubs o r organizations such as cheondoism groups, unions, fraternal or athletic groups, or [...] Score 0 02/04/2023 [facility] of Occupat ional Health - Occupational [...] degree you have received? 12th grade 06/03/2023 Sex and Gender Information Value Date Recorded Sex Assigned at Female 11/04/2019 4:20 PM EST Gender Identity Female 11/04/2019 4:20 PM EST Sexual Orientation Straight 11/04/2019 4: 20 PM EST Job Start Date Occupation Industry Not on file Not on file Not on file documented as of this encounter Functional Status Functional Status Response Date of Assess ment Are you deaf or do you have serious difficulty h earing? No 09/01/2019 Are you blind or do you have serious difficulty seeing, even when wearing glasses? No 09/01/2019 Does this person have seriou s difficulty walking or climbing stairs? Yes 06/03/2023 Do you have difficulty dress ing or bathing? (5 years old or older) No 09/01/2019 Because of a physical, menta l, or emotional condition, do you have difficulty doing errands alone such as visiting a doctor s office or shopping? (15 years old or older) No 09/01/20 19 Cognitive Status Response Date of Assessm ent Because of a physical, menta l, or emotional condition, do you have serious difficulty concentrating, remembering, or making decisions? (5 years old or older) No 09/01/2019 documented as of this encounter Miscellaneous Notes * Telephone Encounter - Val Persaud, - 07/20/2024 2:53 PM ESTSigned Prescriptions: Disp Refills Pregabalin 225 MG Oral Capsule (Lyrica) 180 Ca*3 Sig: Take 1 Capsule by mouth in the morning and 1 Capsule before bedtime.Authorizing Provider: VAL PERSAUD--- * Telephone Encounter - Daniela Zuniga RN - 07/20/2024 12:24 PM EST Received fax stating that Lyrica is not covered by insurance. Generic Pregabalin is covered. documented in this encounter Plan of Treatment Upcoming Encounters Date Type Department Care Team (Late st Contact Info) Description 11/10/2024 5:00 PM EST Office Visit [facility] [address] [facility] [place] [address] Val Persaud DO [address] [place] [address] Health Maintenance Due Date Last Done Comments [...] this encounter Visit Diagnoses Diagnosis Chronic pain syndrome- Primary documented in this encounter Advance Directives [...] Directives occurred with: Not Discussed Care Teams Computing Machine Operator Relationship Specialty Start Date End Date Val Persaud DO [address] [place] [address] PCP - General Family Medicine 02/08/16 documented as of this encounter
--- OUTSIDE RECORDS SUMMARY | 2024-11-18 23:22 | External Medical Summary | Summary of Care ---
Author Name Unknown Organization [facility] Address [address] [facility] [place] [address] Phone [phone] Care Team Providers Care Nursing Home Administrator Name Role Phone Ninfa Cruz DO Primary Care Provider [phone] Reason for Visit * Reason Onset Date Comments Medication Refill 07/20/2024 Encounter Details Date Type Department Care Team (Late st Contact Info) Description 07/20/2024 Refill Family Practice [facility] [address] [facility] [address] Ninfa Cruz DO [address] [place] [address] Allergies Active Allergy Reactions Criticality Noted Date [...] as needed for Allergies. 30 Tablet 11 07/07/2023 Active Nicotine 21 MG/24HR Transdermal Patch 24 Hour (Nicoderm CQ)Indications:COPD , moderate (HCC),Tobacco use disorder Place 1 Patch over 24 hours topically on the skin daily. 28 Patch 1 07/31/2023 Active Vitamin B-12 1000 MCG Oral Tablet (Cyanocobalamin)Ind ications:Vitamin Deficiency Prophylaxis Take 1 Tablet by mouth in the morning. 100 Tablet 3 09/23/2023 Active Nicotine Polacrilex 2 MG Mouth/Throat Gum (Nicorette) Chew one piece of gum every 1 to 2 hours for the first 6 weeks, then 1 every 2 to 4 hours for weeks 7 to 9, then 1 every 4 to 8 hours. 120 Each 1 09/23/2023 Active Nicotine Polacrilex 4 MG Mouth/Throat Gum (GNP Nicotine Polacrilex)Indicati ons:Tobacco use Chew one piece of gum every 1 to 2 hours for the first 6 weeks, then 1 every 2 to 4 hours for weeks 7 to 9, then 1 every 4 to 8 hours. 110 Each 02/10/2024 Active Sucralfate 1 GM/10ML Oral Suspension (Carafate)Indicatio ns:Gastroesophageal reflux disease with esophagitis without hemorrhage Take 10 mL by mouth in the morning and 10 mL at noon and 10 mL in the evening and 10 mL before bedtime. 420 mL 1 02/11/2024 Active Benzonatate 100 MG Oral Capsule (Tessalon Perles)Indications: Suspected COVID-19 virus infection,Dry cough Take 1 Capsule by mouth 3 times a day as needed for Cough. Do not cut, crush, or chew. 30 Capsule 03/01/2024 Active Dexlansoprazole 60 MG Oral Capsule Delayed Release (Dexilant)Indicatio ns:Gastroesophageal reflux disease with esophagitis without hemorrhage Take 1 Capsule by mouth in the morning. 90 Capsule 1 03/29/2024 Active Prochlorperazine Maleate 10 MG Oral Tablet (Compazine) TAKE ONE TABLET BY MOUTH EVERY 6 HOURS NEEDED FOR NAUSEA 120 Tablet 2 04/05/2024 Active Albuterol Sulfate HFA 108 (90 Base) MCG/ACT Inhalation Aerosol SolutionIndications :COPD with Bronchospasms Prophylaxis Inhale 2 Puffs by mouth every 6 hours as needed for Dyspnea. 54 g 04/05/2024 Active Lidocaine 5 % External Patch (Lidoderm)Indicatio ns:Personal history of fall,Closed fracture of one rib of left side, initial encounter Place 1 Patch over 12 hours topically on the skin daily. 30 Patch 04/12/2024 Active Methocarbamol 500 MG Oral Tablet (Robamol) Take 1 Tablet by mouth 3 times a day as needed for Muscle spasms. 30 Tablet 04/16/2024 Active Simethicone 80 MG Oral Tablet Chewable (Gas Relief)Indications: Gas Pain Take 1 Tablet by mouth every 6 hours as needed for Gas. 30 Tablet 5 04/28/2024 Active Ferrous Sulfate 325 (65 Fe) MG Oral Tablet (FeroSul)Indication s:Anemia Take 1 Tablet by mouth in the morning and 1 Tablet at noon and 1 Tablet in the evening. Take with meals. 90 Tablet 2 05/03/2024 Active Venlafaxine HCl ER 75 MG Oral Capsule Extended Release 24 Hour (Effexor XR)Indications:Mode rate episode of recurrent major depressive disorder (HCC) Take 1 Capsule by mouth in the morning. Do not cut, crush or chew. 90 Capsule 1 05/06/2024 Active Ondansetron 4 MG Oral Tablet Disintegrating (Zofran)Indications :Nausea Place 1 Tablet on tongue every 6 hours as needed for Nausea. 90 Tablet 5 05/12/2024 Active Fluticasone Propionate 50 MCG/ACT Nasal Suspension (Flonase)Indication s:Asthma Administer 2 Sprays into nostril 2 times a day as needed for Congestion. 16 g 5 05/12/2024 Active Phenazopyridine HCl 200 MG Oral Tablet (Pyridium)Indicatio ns:Dysuria Take 1 Tablet by mouth 3 times a day as needed for Pain, Mild. After meals for pain with urination 20 Tablet 3 05/18/2024 Active Dicyclomine HCl 10 MG Oral Capsule (Bentyl)Indications :Abdominal Distress Take 2 Capsules by mouth 4 times a day as needed for Other (abdominal pain). 120 Capsule 05/26/2024 Active Levothyroxine Sodium 75 MCG Oral Tablet (Levoxyl)Indication s:Hypothyroidism Take 1 Tablet by mouth daily first thing in the morning. 90 Tablet 1 05/29/2024 Active Loratadine 10 MG Oral Tablet (Claritin)Indicatio ns:Allergic Rhinitis Take 1 Tablet by mouth in the morning. 30 Tablet 5 06/02/2024 Active Nicotine 14 MG/24HR Transdermal Patch 24 Hour (Nicoderm CQ)Indications:Toba branch account manager use disorder PLACE 1 PATCH OVER 24 HOURS TOPICALLY ON THE SKIN DAILY 28 Patch 06/09/2024 Active Ipratropium-Albuter ol 0.5-2.5 (3) MG/3ML Inhalation Solution (Duoneb)Indications :COPD, moderate (HCC) Inhale 3 mL via nebulizer in the morning and 3 mL at noon and 3 mL in the evening and 3 mL before bedtime. 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 12 g 12 06/18/2024 Active QUEtiapine Fumarate 25 MG Oral Tablet (SEROquel)Indicatio ns:Anxiety Take 1 Tablet by mouth every 8 hours as needed for Anxiety. 30 Tablet 06/23/2024 Active Estradiol 0.1 MG/GM Vaginal Cream (Estrace)Indication s:Menopause USE 1/4 OF APPLICATORFUL 2 TO 3 TIMES PER WEEK. 42.5 g 2 06/23/2024 Active Bismuth Subsalicylate 262 MG/15ML Oral Suspension ([employer] Stomach Relief)Indications: Gastroesophageal reflux disease with esophagitis without hemorrhage Take 30 mL by mouth every 6 hours as needed for Nausea. 473 mL 1 06/24/2024 Active Polyethylene Glycol 3350 17 GM/SCOOP Oral Powder (MiraLax)Indication s:Constipation, unspecified constipation type Take 17 g by mouth as needed for Constipation. Dissolve one heaping tablespoon in 8 ounces of water or juice. 850 g 1 06/24/2024 Active Bismuth Subsalicylate 262 MG/15ML Oral Suspension (CVS Stomach Relief)Indications: Gastroesophageal reflux disease with esophagitis without hemorrhage Take 30 mL by mouth every 6 hours as needed for Nausea or Other (stomach upset). 473 mL 1 07/06/2024 Active Pregabalin 225 MG Oral Capsule (Lyrica)Indications :Chronic pain syndrome Take 1 Capsule by mouth in the morning and 1 Capsule before bedtime. 180 Capsule 3 07/20/2024 Active documented as of this encounter (statuses as of 07/20/2024) Active Problems Problem Noted Date Diagnosed Date Food insecurity 06/23/2023 Overview: Per [facility] Protocol Severe episode of recurrent major depressive disorder, without psychotic features 06/01/2023 PTSD (post-traumatic stress disorder) 06/01/2023 Cannabis abuse 06/01/2023 Iron deficiency anemia 03/25/2023 Substance abuse 12/31/2022 Overview: UDS + meth 11/23/22 [facility], [...] overnight PSG 2 [facility] Gastroesophageal reflux disease with esophagitis 03/14/2011 HTN, [...] IM 11/09/2009 Pneumococcal Conjugate Vacci ne, 20-valent ([id number]) 02/04/2023 Pneumococcal Polysaccharide PPV23 (Pneumovax) 01/17/2009 Seasonal [...] Never 06/02/2023 How often do you attend adventism or anabaptist serv ices? Never 06/02/2023 Do you belong to any clubs o r organizations such as adventism groups, unions, fraternal or athletic groups, or [...] PHQ Adult Total Score 0 02/04/2023 [facility] - Occupational Stress Questionnaire Answer Date [...] * Telephone Encounter - Anjana Hardin - 07/20/2024 9:28 PM ESTRefused Prescriptions: Disp Refills Ondansetron 4 MG Oral Tablet Disintegratin*90 Tab*5 Sig: Place1 Tablet on tongue every 6 hours as needed for Nausea.Refused By: Maricel HARDIN for Refusal: Duplicate Request documented in this encounter Plan of Treatment Upcoming Encounters Date Type Department Care Team (Late st Contact Info) Description 11/10/2024 5:00 PM EST Office Visit Family [facility] [address] [place] [address] Ninfa Cruz, [address] [place] [address] Health Maintenance Due Date Last Done Comments DISCUSS TOBACCO CESSATION (REFER TO SMARTSET #[id number]) 1965 Cologuard 2008 Sigmoidoscopy 2008 Fecal Occult [...] Directives occurred with: Not Discussed Care Teams Nursing Home Administrator Relationship Specialty Start Date End Date Ninfa Cruz DO [address] [place] [address] PCP - General Family Medicine 02/08/16 documented as of this encounter
--- OUTSIDE RECORDS SUMMARY | 2024-11-18 23:22 | External Medical Summary | Summary of Care ---
Author Name Unknown Organization [facility] Address [address] [facility] [place] [address] Phone [phone] Care Team Providers Care Newborn Hearing Screener Name Role Phone Ninfa Cruz DO Primary Care Provider [phone] Reason for Visit * Reason Onset Date Comments Medication Refill 07/19/2024 Encounter Details Date Type Department Care Team (Late st Contact Info) Description 07/19/2024 Refill Family Practice [facility] [address] [place] [address] Ninfa Cruz DO [address] [place] [address] COPD, group B, by GOLD 2017 classification ([facility]); Intermittent asthma with reliever use up to twice per week without complication Allergies Active Allergy Reactions Criticality Noted Date [...] as of this encounter (statuses as of 07/21/2024) Medications Medication Sig Dispensed Refills Start Date [...] MG/24HR Transdermal Patch 24 Hour (Nicoderm CQ)Indications:Toba account resolution analyst use disorder PLACE 1 PATCH OVER 24 [...] Fluticasone-Salmete rol 115-21 MCG/ACT Inhalation Aerosol (Advair HFA)Indications: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 473 mL 1 07/06/2024 Active documented as of this encounter (statuses as of 07/21/2024) Active Problems Problem Noted Date Diagnosed Date Food insecurity 06/23/2023 Overview: Per [facility] Protocol Severe episode of recurrent major depressive disorder, without psychotic features 06/01/2023 PTSD (post-traumatic stress disorder) 06/01/2023 Cannabis abuse 06/01/2023 Iron deficiency anemia 03/25/2023 Substance abuse 12/31/2022 Overview: UDS + meth 11/23/22 [facility], new onset of paranoia and [...] very minimal noted on overnight PSG 2 [facility] Gastroesophageal reflux disease with esophagitis 03/14/2011 HTN, goal below 130/80 03/13/2011 Fibromyalgia 04/05/2010 Chronic nausea 04/02/2010 Overview: ICD-10 update of inactive term Intermittent asthma with rel iever use up to twice per week without complication 01/04/2010 ANDRE (generalized anxiety disorder) 10/24/2009 Dyslipidemia 08/24/2009 Overview: Per Lipid Taxonomy. Hypothyroidism 05/12/2009 documented as of this encounter (statuses as of 07/21/2024) Resolved Problems Problem Noted Date Diagnosed Date [...] as of this encounter (statuses as of 07/21/2024) Immunizations Name Administration Dates Next Due COVID-19, LNP-s, No Preserve , Lloyd-sucrose, Ages 12+ (Pfizer) 03/20/2022 H1N1 2009 Influenza, IM 11/09/2009 Pneumococcal Conjugate Vacci ne, 20-valent ([id number]) 02/04/2023 Pneumococcal Polysaccharide PPV23 (Pneumovax) 01/17/2009 Seasonal [...] Never 06/02/2023 How often do you attend zoroastrianism or bahai serv ices? Never 06/02/2023 Do you belong to any clubs o r organizations such as zoroastrianism groups, unions, fraternal or athletic groups, or [...] Recorded PHQ Adult Total Score 0 02/04/2023 [facility] Questionnaire Answer [...] Miscellaneous Notes * Telephone Encounter - Thomas Lockwood [facility] - 07/21/2024 7:28 AM ESTRefused Prescriptions: Disp Refills Fluticasone-Salmeterol 115-21 MCG/ACT Inha*12 g 12 Sig: Inhale 2 Puffs by mouth in the morning and 2 Puffs before bedtime.Refused By: THOMAS LOCKWOOD LReason for Refusal: Too soon documented in this encounter Plan of Treatment Upcoming Encounters Date Type Department Care Team (Late st Contact Info) Description 11/10/2024 5:00 PM EST Office Visit Family [facility] [address] [place] [address] Ninfa Cruz, [address] [place] [address] Health Maintenance Due Date Last Done Comments DISCUSS TOBACCO CESSATION (REFER TO SMARTSET #[id number]) 1965 Cologuard 2008 Sigmoidoscopy 2008 Fecal Occult [...] as of this encounter Visit Diagnoses Diagnosis COPD, group B, by GOLD 2017 classification (HCC) Intermittent asthma with reliever use up to twice per week without complication documented in this encounter Advance Directives * [...] Directives occurred with: Not Discussed Care Teams Newborn Hearing Screener Relationship Specialty Start Date End Date Ninfa Cruz DO [address] [place] [address] PCP - General Family Medicine 02/08/16 documented as of this encounter
--- OUTSIDE RECORDS SUMMARY | 2024-11-18 23:22 | External Medical Summary | Summary of Care ---
Author Name Unknown Organization [facility] Address [address] [facility] [place] [address] Phone [phone] Care Team Providers Care Meat Counter Clerk Name Role Phone Ninfa Cruz DO Primary Care Provider Reason for Visit * Reason Onset Date Comments Medication Refill 07/09/2024 Encounter Details Date Type Department Care Team (Late st Contact Info) Description 07/09/2024 Refill Family Practice [facility] [address] [facility] [address] Ninfa Cruz DO [address] [place] [address] Allergies Active Allergy Reactions Criticality Noted Date [...] as of this encounter (statuses as of 07/11/2024) Medications Medication Sig Dispensed Refills Start Date [...] Transdermal Patch 24 Hour (Nicoderm CQ)Indications:Toba account development manager use disorder PLACE 1 PATCH OVER 24 HOURS TOPICALLY ON THE SKIN DAILY 28 Patch 06/09/2024 Active Ipratropium-Albuter ol 0.5-2.5 (3) MG/3ML Inhalation Solution (Duoneb)Indications :COPD, moderate (HCC) Inhale 3 mL via nebulizer in the morning and 3 mL at noon and 3 mL in the evening and 3 mL before bedtime. 180 mL 1 06/13/2024 Active Lyrica 225 MG Oral CapsuleIndications: Chronic pain syndrome Take 1 Capsule by mouth in the morning and 1 Capsule before bedtime. 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 ([facility]),Intermittent asthma with reliever use up to twice [...] as of this encounter (statuses as of 07/11/2024) Active Problems Problem Noted Date Diagnosed Date Food insecurity 06/23/2023 Overview: Per [facility] Protocol Severe episode of recurrent major depressive disorder, without psychotic features 06/01/2023 PTSD (post-traumatic stress disorder) 06/01/2023 Cannabis abuse 06/01/2023 Iron deficiency anemia 03/25/2023 Substance abuse 12/31/2022 Overview: UDS + meth 11/23/22 [facility], [...] as of this encounter (statuses as of 07/11/2024) Resolved Problems Problem Noted Date Diagnosed Date [...] as of this encounter (statuses as of 07/11/2024) Immunizations Name Administration Dates Next Due COVID-19, LNP-s, No Preserve , Lloyd-sucrose, Ages 12+ (Pfizer) 03/20/2022 H1N1 2009 Influenza, IM 11/09/2009 Pneumococcal Conjugate Vacci ne, 20-valent ([id number]) 02/04/2023 Pneumococcal Polysaccharide PPV23 (Pneumovax) 01/17/2009 Seasonal [...] How often do you attend latter-day or anabaptist serv ices? Never 06/02/2023 Do [...] 02/04/2023 [facility] Occupat ional [facility] - Occupational Stress [...] Telephone Encounter - Beverley Zambrano RPh - 07/11/2024 7:59 PM EDT Refused Prescriptions: Disp Refills Ondansetron 4 MG Oral Tablet Disintegratin*90 Tab*5 Sig: Place1 Tablet on tongue every 6 hours as needed for Nausea.Refused By: BEVERLEY ZAMBRANO for Refusal: Too soon documented in this encounter Plan of Treatment Upcoming Encounters Date Type Department Care Team (Late st Contact Info) Description 11/10/2024 5:00 PM EST Office Visit Family Practice [facility] [address] [place] [address] Ninfa Cruz, [address] [place] [address] Health Maintenance Due Date Last Done Comments DISCUSS TOBACCO CESSATION (REFER TO SMARTSET #[id number]) 1965 Cologuard 2008 Sigmoidoscopy 2008 Fecal Occult [...] Directives occurred with: Not Discussed Care Teams Meat Counter Clerk Relationship Specialty Start Date End Date Ninfa Cruz DO [address] [place] [address] PCP - General Family Medicine 02/08/16 documented as of this encounter
--- OUTSIDE RECORDS SUMMARY | 2024-11-18 23:22 | External Medical Summary | Summary of Care ---
Author Name Unknown Organization [facility] Address [address] [facility] [place] [address] Phone [phone] Care Team Providers Care Software Quality Analyst Name Role Phone Ninfa Cruz DO Primary Care Provider [phone] Reason for Visit * Reason Onset Date Comments Medication Refill 07/20/2024 Encounter Details Date Type Department Care Team (Late st Contact Info) Description 07/20/2024 Refill Family Practice [facility] [address] [facility] [address] Ninfa Cruz DO [address] [place] [address] Chronic pain syndrome Allergies Active Allergy Reactions [...] MG/24HR Transdermal Patch 24 Hour (Nicoderm CQ)Indications:Toba clinical account executive use disorder PLACE 1 PATCH OVER 24 [...] Fluticasone-Salmete rol 115-21 MCG/ACT Inhalation Aerosol (Advair HFA)Indications: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 Never 06/02/2023 Do you belong [...] Recorded PHQ Adult Total Score 0 02/04/2023 [facility] - Occupational [...] encounter Miscellaneous Notes * Telephone Encounter - Kamran Bartlett [facility] - 07/21/2024 12:53 PM ESTRefused Prescriptions: Disp Refills Lyrica 225 MG Oral Capsule 60 Cap*3 Sig: Take 1 Capsule by mouth in the morning and 1 Capsule before bedtime.Refused By: KAMRAN BARTLETT for Refusal: Duplicate Request documented in this encounter Plan of Treatment Upcoming Encounters Date Type Department Care Team (Late st Contact Info) Description 11/10/2024 5:00 PM EST Office Visit Family Practice [facility] [address] [address] [address] Ninfa Cruz, DO [address] [place] [address] Health Maintenance Due Date Last Done Comments DISCUSS TOBACCO CESSATION (REFER TO SMARTSET #[id number]) 1965 Cologuard 2008 Sigmoidoscopy 2008 Fecal Occult [...] Directives occurred with: Not Discussed Care Teams Software Quality Analyst Relationship Specialty Start Date End Date Ninfa Cruz DO [address] [place] [address] PCP - General Family Medicine 02/08/16 documented as of this encounter
--- OUTSIDE RECORDS SUMMARY | 2024-11-18 23:22 | External Medical Summary | Summary of Care ---
Author Name Unknown Organization [facility] Address [address] [facility] [place] [address] Phone [phone] Care Team Providers Care Industrial Conveyor Belt Repairer Name Role Phone Ninfa Cruz DO Primary Care Provider Reason for Visit * Reason Onset Date Comments Medication Refill 07/09/2024 Encounter Details Date Type Department Care Team (Late st Contact Info) Description 07/09/2024 Refill Family Practice [facility] [address] [facility] [place] [address] Ninfa Cruz DO [address] [place] [address] Allergies Active Allergy Reactions Criticality Noted Date [...] as of this encounter (statuses as of 07/12/2024) Medications Medication Sig Dispensed Refills Start Date [...] MG/24HR Transdermal Patch 24 Hour (Nicoderm CQ)Indications:Toba medical accounts receivable specialist use disorder PLACE 1 PATCH OVER 24 [...] Fluticasone-Salmete rol 115-21 MCG/ACT Inhalation Aerosol (Advair HFA)Indications: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 Gastroesophageal reflux disease with esophagitis 03/14/2011 HTN, goal below 130/80 03/13/2011 Fibromyalgia 04/05/2010 Chronic nausea 04/02/2010 Overview: ICD-10 update of inactive term Intermittent asthma with rel iever use up to twice per week without complication 01/04/2010 ANDRE (generalized anxiety disorder) 10/24/2009 Dyslipidemia 08/24/2009 Overview: Per Lipid Taxonomy. Hypothyroidism 05/12/2009 documented as of this encounter (statuses as of 07/12/2024) Resolved Problems Problem Noted Date Diagnosed Date [...] as of this encounter (statuses as of 07/12/2024) Immunizations Name Administration Dates Next Due COVID-19, LNP-s, No Preserve , Lloyd-sucrose, Ages 12+ (Pfizer) 03/20/2022 H1N1 2009 Influenza, IM 11/09/2009 Pneumococcal Conjugate Vacci ne, 20-valent ([id number]) 02/04/2023 Pneumococcal Polysaccharide PPV23 (Pneumovax) 01/17/2009 Seasonal [...] How often do you attend gnosticist or zoroastrianism serv ices? Never 06/02/2023 Do you belong [...] Recorded PHQ Adult Total Score 0 02/04/2023 [facility] Occupat ional [facility] - Occupational Stress Questionnaire Answer Date [...] Telephone Encounter - Julio Parker RPh - 07/12/2024 8:15 AM EDT Refused Prescriptions: Disp Refills Levothyroxine Sodium 75 MCG Oral Tablet (L*90 Tab*1 Sig: Take 1 Tablet by mouth daily first thing in the morning.Refused By: JULIO PARKER for Refusal: Too soon documented in this encounter Plan of Treatment Upcoming Encounters Date Type Department Care Team (Late st Contact Info) Description 11/10/2024 5:00 PM EST Office Visit Family [facility] [address] [address] Ninfa Cruz, [address] [address] Health Maintenance Due Date Last Done Comments DISCUSS TOBACCO CESSATION (REFER TO SMARTSET #[id number]) 1965 Cologuard 2008 Sigmoidoscopy 2008 Fecal Occult [...] Directives occurred with: Not Discussed Care Teams Industrial Conveyor Belt Repairer Relationship Specialty Start Date End Date Ninfa Cruz DO [address] [address] PCP - General Family Medicine 02/08/16 documented as of this encounter
--- OUTSIDE RECORDS SUMMARY | 2024-11-18 23:22 | External Medical Summary | Summary of Care ---
Author Name Unknown Organization [facility] Address [address] [facility] [place] [address] Phone [phone] Care Team Providers Care Occupational Health And Safety Adviser Name Role Phone Val Persaud DO Primary Care Provider [phone] Reason for Visit * Reason Comments eRx-Medication Refill Encounter Details Date Type Department Care Team (Late st Contact Info) Description 07/21/2024 Refill Family Practice [facility] [address] [facility] [place] [address] Val Persaud DO [address] [place] [address] Allergies Active Allergy Reactions Criticality Noted Date [...] as of this encounter (statuses as of 07/22/2024) Medications Medication Sig Dispensed Refills Start Date End Date Status Fexofenadine HCl 180 MG Oral Tablet (GNP Allergy Relief) Take 1 Tablet by mouth daily as needed for Allergies. 30 Tablet 11 3 Active Nicotine 21 MG/24HR Transdermal Patch 24 Hour (Nicoderm CQ)Indications:LEAD IOS DEVELOPER D, moderate (HCC),Tobacco use disorder Place 1 [...] 4 Active Sucralfate 1 GM/10ML Oral Suspension (Carafate)Indicati [...] FOR NAUSEA 120 Tablet 2 4 Active Lidocaine 5 % External Patch (Lidoderm)Indicati [...] 4 Active Loratadine 10 MG Oral Tablet (Claritin)Indicati ons:Allergic Rhinitis Take 1 Tablet by mouth in the morning. 30 Tablet 5 4 Active Nicotine 14 MG/24HR Transdermal Patch 24 Hour (Nicoderm CQ)Indications:Tob acco use disorder PLACE 1 PATCH OVER 24 HOURS TOPICALLY ON THE SKIN DAILY 28 Patch 4 Active Ipratropium-Albute rol 0.5-2.5 (3) MG/3ML Inhalation Solution (Duoneb)Indication s:COPD, moderate ([facility]) Inhale 3 mL via nebulizer in the morning and 3 mL at noon and 3 mL in the evening and 3 mL before bedtime. 180 mL 1 4 Active Fluticasone-Salmet mike 115-21 MCG/ACT Inhalation Aerosol [...] needed for Anxiety. 30 Tablet 4 Active Bismuth Subsalicylate 262 MG/15ML Oral [...] 4 Active Pregabalin 225 MG Oral Capsule (Lyrica)Indication s:Chronic pain syndrome Take 1 Capsule by mouth in the morning and 1 Capsule before bedtime. 180 Capsule 3 4 Active Estradiol 0.1 MG/GM Vaginal Cream (Estrace)Indicatio ns:Menopause USE 1/4 OF APPLICATORFUL 2 TO 3 TIMES PER WEEK. 127.5 g 3 4 Active Albuterol Sulfate HFA 108 (90 Base) MCG/ACT Inhalation Aerosol Solution Inhale 2 Puffs by mouth every 6 hours as needed for Dyspnea. 54 g 4 Active Albuterol Sulfate HFA 108 (90 Base) MCG/ACT Inhalation Aerosol SolutionIndication s:COPD with Bronchospasms Prophylaxis Inhale 2 Puffs by mouth every 6 hours as needed for Dyspnea. 54 g 4 024 Discontinued documented as of this encounter (statuses as of 07/22/2024) Active Problems Problem Noted Date Diagnosed Date Food insecurity 06/23/2023 Overview: Per [facility] Protocol Severe episode of recurrent major depressive disorder, without psychotic features 06/01/2023 PTSD (post-traumatic stress disorder) 06/01/2023 Cannabis abuse 06/01/2023 Iron deficiency anemia 03/25/2023 Substance abuse 12/31/2022 Overview: UDS + meth 11/23/22 [facility] [...] very minimal noted on overnight PSG 2 [facility] Gastroesophageal reflux disease with esophagitis 03/14/2011 HTN, goal below 130/80 03/13/2011 Fibromyalgia 04/05/2010 Chronic nausea 04/02/2010 Overview: ICD-10 update of inactive term Intermittent asthma with rel iever use up to twice per week without complication 01/04/2010 ANDRE (generalized anxiety disorder) 10/24/2009 Dyslipidemia 08/24/2009 Overview: Per Lipid Taxonomy. Hypothyroidism 05/12/2009 documented as of this encounter (statuses as of 07/22/2024) Resolved Problems Problem Noted Date Diagnosed Date [...] as of this encounter (statuses as of 07/22/2024) Immunizations Name Administration Dates Next Due COVID-19, LNP-s, No Preserve , Lloyd-sucrose, Ages 12+ (Pfizer) 03/20/2022 H1N1 2009 Influenza, IM 11/09/2009 Pneumococcal Conjugate Vacci ne, 20-valent ([id number]) 02/04/2023 Pneumococcal Polysaccharide PPV23 (Pneumovax) 01/17/2009 Seasonal [...] Never 06/02/2023 How often do you attend sikh or jehovah's witness serv ices? Never 06/02/2023 Do you belong to any clubs o r organizations such as sikh groups, unions, fraternal or athletic groups, or [...] 02/04/2023 [facility] - [...] Telephone Encounter - Nicky Boone RPh - 07/22/2024 5:25 AM ESTSigned Prescriptions: Disp Refills Albuterol Sulfate HFA 108 (90 Base) MCG/AC*54 g 0 Sig: Inhale 2 Puffs by mouth every 6 hours as needed for Dyspnea.Authorizing Provider: VAL PERSAUD User: NICKY BOONE documented in this encounter Plan of Treatment Upcoming Encounters Date Type Department Care Team (Late st Contact Info) Description 11/10/2024 5:00 PM EST Office Visit Family Practice [facility] [address] [place] [address] Val Persaud DO [address] [place] [address] Health Maintenance Due Date Last Done Comments DISCUSS TOBACCO CESSATION (REFER TO SMARTSET #4811) 1963 Cologuard 2008 Sigmoidoscopy 2008 Fecal Occult [...] Directives occurred with: Not Discussed Care Teams Occupational Health And Safety Adviser Relationship Specialty Start Date End Date Val Persaud DO [address] [facility] [place] [address] PCP - General Family Medicine 02/08/16 documented as of this encounter
--- OUTSIDE RECORDS SUMMARY | 2024-11-18 23:22 | External Medical Summary | Summary of Care ---
Author Name Unknown Organization [facility] Address [address] [facility] [place] [address] Phone [phone] Care Team Providers Care Circuit Court Judge Name Role Phone Ninfa Cruz DO Primary Care Provider [phone] Reason for Visit * Reason Onset Date Comments Medication Refill 07/15/2024 Encounter Details Date Type Department Care Team (Late st Contact Info) Description 07/15/2024 Refill Family Practice [facility] [address] 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 ([facility]),Intermittent asthma with reliever use up to [...] as of this encounter (statuses as of 07/16/2024) Active Problems Problem Noted Date Diagnosed Date Food insecurity 06/23/2023 Overview: Per [facility] Protocol Severe episode of recurrent major depressive disorder, without psychotic features 06/01/2023 PTSD (post-traumatic stress disorder) 06/01/2023 Cannabis abuse 06/01/2023 Iron deficiency anemia 03/25/2023 Substance abuse 12/31/2022 Overview: UDS + meth 11/23/22 [facility], new onset of paranoia and [...] overnight PSG 2 [facility] Gastroesophageal reflux disease with esophagitis 03/14/2011 HTN, goal below 130/80 03/13/2011 Fibromyalgia 04/05/2010 Chronic nausea 04/02/2010 Overview: ICD-10 update of inactive term Intermittent asthma with rel iever use up to twice per week without complication 01/04/2010 ANDRE (generalized anxiety disorder) 10/24/2009 Dyslipidemia 08/24/2009 Overview: Per Lipid Taxonomy. Hypothyroidism 05/12/2009 documented as of this encounter (statuses as of 07/16/2024) Resolved Problems Problem Noted Date Diagnosed Date [...] as of this encounter (statuses as of 07/16/2024) Immunizations Name Administration Dates Next Due COVID-19, LNP-s, No Preserve , Lloyd-sucrose, Ages 12+ (Pfizer) 03/20/2022 H1N1 2009 Influenza, IM 11/09/2009 Pneumococcal Conjugate Vacci ne, 20-valent ([id number]) 02/04/2023 Pneumococcal Polysaccharide PPV23 (Pneumovax) 01/17/2009 Seasonal [...] How often do you attend jain or holiness serv ices? Never 06/02/2023 Do [...] PHQ Adult Total Score 0 02/04/2023 [facility] - Occupational Stress Questionnaire Answer [...] Notes * Telephone Encounter - Thomas Lockwood [facility] - 07/16/2024 8:08 AM EDTRefused Prescriptions: Disp Refills Loratadine 10 MG Oral Tablet (Claritin) 30 Tab*5 Sig: Take 1 Tablet by mouth in the morning.Refused By: THOMAS LOCKWOOD LReason for Refusal: Too soon documented in this encounter Plan of Treatment Upcoming Encounters Date Type Department Care Team (Late st Contact Info) Description 11/10/2024 5:00 PM EST Office Visit Family [facility] [address] [place] [address] Ninfa Cruz, [address] [place] [address] Health Maintenance Due Date Last Done Comments DISCUSS TOBACCO CESSATION (REFER TO SMARTSET #3992) 1965 Cologuard 2008 Sigmoidoscopy 2008 Fecal Occult [...] Directives occurred with: Not Discussed Care Teams Circuit Court Judge Relationship Specialty Start Date End Date Ninfa Cruz DO [address] [place] [address] PCP - General Family Medicine 02/08/16 documented as of this encounter
--- OUTSIDE RECORDS SUMMARY | 2024-11-18 23:22 | External Medical Summary | Summary of Care ---
Author Name Unknown Organization [facility] Address [address] [facility] [place] [address] Phone [phone] Care Team Providers Care Registered Occupational Therapist Name Role Phone Val Persaud DO Primary Care Provider [phone] Reason for Visit * Reason Onset Date Comments Medication Refill 07/20/2024 Encounter Details Date Type Department Care Team (Late st Contact Info) Description 07/20/2024 Refill Family Practice [facility] [address] [facility] [place] [address] Val Persaud DO [address] [place] [address] Vaginal atrophy Allergies Active Allergy Reactions Criticality Noted Date [...] MG/24HR Transdermal Patch 24 Hour (Nicoderm CQ)Indications:Toba national account director use disorder PLACE 1 PATCH OVER 24 [...] Fluticasone-Salmete rol 115-21 MCG/ACT Inhalation Aerosol (Advair HFA)Indications: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 127.5 g 3 4 Active Estradiol 0.1 MG/GM Vaginal Cream (Estrace)Indication s:Menopause USE 1/4 OF APPLICATORFUL 2 TO 3 TIMES PER WEEK. 42.5 g 2 4 07/20/20 24 Discontinu ed(Refill) documented as of this encounter (statuses as of 07/21/2024) Active Problems Problem Noted Date Diagnosed Date Food insecurity 06/23/2023 Overview: Per [facility] Protocol Severe episode of recurrent major depressive disorder, without psychotic features 06/01/2023 PTSD (post-traumatic stress disorder) 06/01/2023 Cannabis abuse 06/01/2023 Iron deficiency anemia 03/25/2023 Substance abuse 12/31/2022 Overview: UDS + meth 11/23/22 [facility], new onset of paranoia and confusion [...] very minimal noted on overnight PSG 2 [facility] Gastroesophageal reflux disease with esophagitis 03/14/2011 [...] IM 11/09/2009 Pneumococcal Conjugate Vacci ne, 20-valent ([id number]) 02/04/2023 Pneumococcal Polysaccharide PPV23 (Pneumovax) 01/17/2009 Seasonal [...] How often do you attend yazidi or orthodox serv ices? Never 06/02/2023 Do [...] Score 0 02/04/2023 [facility] - [...] (15 years old or older) No 09/01/20 Cognitive Status Response Date of Assessm ent Because of a physical, menta l, or emotional condition, do you have serious difficulty concentrating, remembering, or making decisions? (5 years old or older) No 09/01/2019 documented as of this encounter Miscellaneous Notes * Telephone Encounter - Val Persaud DO - 07/21/2024 3:53 PM ESTSigned Prescriptions: Disp Refills Estradiol 0.1 MG/GM Vaginal Cream (Estrace)127.5 g3 Sig: USE 1/4 OF APPLICATORFUL 2 TO 3 TIMES PER WEEK. Authorizing Provider: VAL PERSAUD * Telephone Encounter - Nicole Almanza LPN - 07/21/2024 7:51 AM ESTPending Prescriptions: Disp Refills Estradiol 0.1 MG/GM Vaginal Cream (Estrace)127.5 g3 Sig: USE 1/4 OF APPLICATORFUL 2 TO 3 TIMES PER WEEK. * Telephone Encounter - Nicole Almanza LPN - 07/21/2024 7:50 AM EST Change of pharm Did you pend patient's preferred pharmacy and medication before forwarding?yes Pharmacy: [facility] Pending Prescriptions: Disp Refills Estradiol 0.1 MG/GM Vaginal Cream (Estrac*42.5 g 2 Sig: USE 1/4 OF APPLICATORFUL 2 TO 3 TIMES PER WEEK. Last Visit: 06/24/2023 (in office), 04/23/2022 (telemedicine) Next Visit: 11/10/2024 If no future appointments scheduled, and last appointment is greater than a year ago, please schedule patient for a follow-up appointment Last date the medication was ordered: 06/23/24 Is this request for a controlled substance?No [...] found in Results Review. Patient Phone Numbers Jiff [phone] Labs: Lab Results Component Value Date/Time CREAT 0.7 06/01/2023 03:19 PM CREAT 0.8 04/20/2020 12:21 PM POTASSIUM 4.3 06/01/2023 03:19 PM POTASSIUM 3.9 04/20/2020 12:21 PM TSH 1.25 06/04/2023 05:29 AM TSH 1.85 03/24/2020 12:18 PM LDL 114 06/03/2023 06:00 AM LDL 206 (H) 03/24/2020 12:18 PM LDL UNINTERPRETABLE RESULT 02/19/2019 10:16 AM LDLCALC 77 11/21/2022 12:00 AM ALT 15 02/04/2023 12:29 PM ALT 96 (H) 05/19/2020 08:32 AM HGBA1C 5.5 02/04/2023 12:29 PM HGBA1C 5.4 12/20/2019 01:23 PM * Telephone Encounter - Anjana Hardin - 07/20/2024 9:31 PM ESTPending Prescriptions: Disp Refills Estradiol 0.1 MG/GM Vaginal Cream (Estrace)42.5 g 2 Sig: USE 1/4 OF APPLICATORFUL 2 TO 3 TIMES PER WEEK. documented in this encounter Plan of Treatment Upcoming Encounters Date Type Department Care Team (Late st Contact Info) Description 11/10/2024 5:00 PM EST Office Visit Family [facility] [address] [place] [address] Val Persaud DO [address] [place] [address] Health Maintenance Due Date Last Done Comments [...] as of this encounter Visit Diagnoses Diagnosis Vaginal atrophy Postmenopausal atrophic vaginitis documented in this encounter Advance Directives * [...] Directives occurred with: Not Discussed Care Teams Registered Occupational Therapist Relationship Specialty Start Date End Date Val Persaud DO [address] [place] [address] PCP - General Family Medicine 02/08/16 documented as of this encounter
--- OUTSIDE RECORDS SUMMARY | 2024-11-18 23:23 | External Medical Summary | Summary of Care ---
Author Name Unknown Organization [facility] Address [address] [facility] [place] [address] Phone [phone] Care Team Providers Care C D Still Operator Name Role Phone Ninfa Cruz DO Primary Care Provider [phone] Reason for Visit * Reason Onset Date Comments Medication Refill 06/22/2024 Encounter Details Date Type Department Care Team (Late st Contact Info) Description 06/22/2024 Refill Family Practice [facility] [address] [facility] [place] [address] Ninfa Cruz DO [address] [place] [address] Allergies Active Allergy Reactions Criticality Noted Date [...] as of this encounter (statuses as of 06/23/2024) Medications Medication Sig Dispensed Refills Start Date [...] for Nausea. 90 Tablet 5 05/12/2024 Active Estradiol 0.1 MG/GM Vaginal Cream (Estrace)Indication s:Menopause USE 1/4 OF APPLICATORFUL 2 TO 3 TIMES PER WEEK. 42.5 g 2 05/12/2024 Active Fluticasone Propionate 50 MCG/ACT Nasal Suspension (Flonase)Indication s:Asthma Administer 2 Sprays into nostril 2 times a day as needed for Congestion. 16 g 5 05/12/2024 Active Phenazopyridine HCl 200 MG Oral Tablet (Pyridium)Indicatio ns:Dysuria Take 1 Tablet by mouth 3 times a day as needed for Pain, Mild. After meals for pain with urination 20 Tablet 3 05/18/2024 Active Dexlansoprazole 60 MG Oral Capsule Delayed Release (Dexilant)Indicatio ns:Gastroesophageal reflux disease with esophagitis without hemorrhage Take 1 Capsule by mouth in the morning. 90 Capsule 1 05/18/2024 Active Dicyclomine HCl 10 MG Oral [...] the morning. 30 Tablet 5 06/02/2024 Active QUEtiapine Fumarate 25 MG Oral Tablet (SEROquel)Indicatio ns:Anxiety Take 1 Tablet by mouth every 8 hours as needed for Anxiety. 30 Tablet 06/03/2024 Active Nicotine 14 MG/24HR Transdermal Patch 24 Hour (Nicoderm CQ)Indications:Toba account technician use disorder PLACE 1 PATCH OVER 24 [...] before bedtime. 60 Capsule 3 06/15/2024 Active Bismuth Subsalicylate 262 MG/15ML Oral Suspension ([employer] Stomach Relief)Indications: Gastroesophageal reflux disease with esophagitis without hemorrhage Take 30 mL by mouth every 6 hours as needed for Nausea or Other (stomach upset). 473 mL 1 06/17/2024 Active [employer] Stomach Relief 525 MG/30ML Oral Suspension (Bismuth Subsalicylate)Indic ations:Gastroesopha geal reflux disease with esophagitis without hemorrhage TAKE 30 ML BY MOUTH EVERY 6 HOURS NEEDED FOR NAUSEA OR OTHER (STOMACH UPSET). 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 12 g 12 06/18/2024 Active documented as of this encounter (statuses as of 06/23/2024) Active Problems Problem Noted Date Diagnosed Date Food insecurity 06/23/2023 Overview: Per [facility] Protocol Severe episode of recurrent major depressive disorder, without psychotic features 06/01/2023 PTSD (post-traumatic stress disorder) 06/01/2023 Cannabis abuse 06/01/2023 Iron deficiency anemia 03/25/2023 Substance abuse 12/31/2022 Overview: UDS + meth 11/23/22 [facility] [...] as of this encounter (statuses as of 06/23/2024) Resolved Problems Problem Noted Date Diagnosed Date [...] as of this encounter (statuses as of 06/23/2024) Immunizations Name Administration Dates Next Due COVID-19, LNP-s, No Preserve , Lloyd-sucrose, Ages 12+ (Pfizer) 03/20/2022 H1N1 2009 Influenza, IM 11/09/2009 Pneumococcal Conjugate Vacci ne, 20-valent ([id number]) 02/04/2023 Pneumococcal Polysaccharide PPV23 (Pneumovax) 01/17/2009 Seasonal [...] How often do you attend jain or synagogue serv ices? Never 06/02/2023 Do [...] 02/04/2023 [facility] - Occupational Stress Questionnaire Answer Date Recorded [...] * Telephone Encounter - Anjana Hardin - 06/23/2024 8:59 AM EDTRefused Prescriptions: Disp Refills QUEtiapine Fumarate 25 MG Oral Tablet (SER*30 Tab*0 Sig: Take 1Tablet by mouth every 8 hours as needed for Anxiety.Refused By: Maricel HARDIN for Refusal: Duplicate Request documented in this encounter Plan of Treatment Upcoming Encounters Date Type Department Care Team (Late st Contact Info) Description 11/10/2024 5:00 PM EST Office Visit Family Practice [facility] [address] [place] [address] Ninfa Cruz, [address] [place] [address] Health Maintenance Due Date Last Done Comments DISCUSS TOBACCO CESSATION (REFER TO SMARTSET #1557) 1965 Cologuard 2008 Sigmoidoscopy 2008 Fecal Occult [...] 01/17/2009 Influenza Vaccine (FLU shot) Completed 04/2024, 06/24/2023, 07/04/2020, Additional history exists HPV (Gardasil) Vaccine Aged [...] Directives occurred with: Not Discussed Care Teams C D Still Operator Relationship Specialty Start Date End Date Ninfa Cruz DO [address] [place] [address] PCP - General Family Medicine 02/08/16 documented as of this encounter
--- OUTSIDE RECORDS SUMMARY | 2024-11-18 23:23 | External Medical Summary | Summary of Care ---
Author Name Unknown Organization [facility] Address [address] [facility] [place] [address] Phone [phone] Care Team Providers Care Bricklayer Name Role Phone Ninfa Cruz DO Primary Care Provider [phone] Reason for Visit * Reason Onset Date Comments Medication Refill 06/22/2024 Encounter Details Date Type Department Care Team (Late st Contact Info) Description 06/22/2024 Refill Family Practice [facility] [address] [place] [address] Ninfa Cruz DO [address] [place] [address] COPD, group B, by GOLD 2017 classification ([facility]); Intermittent asthma with reliever use up [...] as of this encounter (statuses as of 06/24/2024) Medications Medication Sig Dispensed Refills Start Date [...] with urination 20 Tablet 3 4 Active Dexlansoprazole 60 MG Oral Capsule Delayed Release (Dexilant)Indicatio ns:Gastroesophageal reflux disease with esophagitis without hemorrhage Take 1 Capsule by mouth in the morning. 90 Capsule 1 4 Active Dicyclomine HCl 10 MG Oral [...] MG/24HR Transdermal Patch 24 Hour (Nicoderm CQ)Indications:Toba accountant auditor use disorder PLACE 1 PATCH OVER 24 HOURS TOPICALLY ON THE SKIN DAILY 28 Patch 4 Active Ipratropium-Albuter ol 0.5-2.5 (3) MG/3ML Inhalation Solution (Duoneb)Indications :COPD, moderate (HCC) Inhale 3 mL via nebulizer in the morning and 3 mL at noon and 3 mL in the evening and 3 mL before bedtime. 180 mL 1 4 Active Lyrica 225 MG Oral CapsuleIndications: Chronic pain syndrome Take 1 Capsule by mouth in the morning and 1 Capsule before bedtime. 60 Capsule 3 4 Active Bismuth Subsalicylate 262 MG/15ML Oral Suspension ([employer]S Stomach Relief)Indications: Gastroesophageal reflux disease with esophagitis without hemorrhage Take 30 mL by mouth every 6 hours as needed for Nausea or Other (stomach upset). 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 42.5 g 2 4 Active [employer]S Stomach Relief 525 MG/30ML Oral Suspension (Bismuth Subsalicylate)Indic ations:Gastroesopha geal reflux disease with esophagitis without hemorrhage TAKE 30 ML BY MOUTH EVERY 6 HOURS NEEDED FOR NAUSEA OR OTHER (STOMACH UPSET). 473 mL 1 4 06/22/20 24 Discontinu ed(Refill) documented as of this encounter (statuses as of 06/24/2024) Active Problems Problem Noted Date Diagnosed Date Food insecurity 06/23/2023 Overview: Per [facility] Protocol Severe episode of recurrent major depressive disorder, without psychotic features 06/01/2023 PTSD (post-traumatic stress disorder) 06/01/2023 Cannabis abuse 06/01/2023 Iron deficiency anemia 03/25/2023 Substance abuse 12/31/2022 Overview: UDS + meth 11/23/22 [facility], new onset of paranoia [...] on overnight PSG 2 [facility] Gastroesophageal reflux disease with esophagitis 03/14/2011 HTN, goal below 130/80 03/13/2011 Fibromyalgia 04/05/2010 Chronic nausea 04/02/2010 Overview: ICD-10 update of inactive term Intermittent asthma with rel iever use up to twice per week without complication 01/04/2010 ANDRE (generalized anxiety disorder) 10/24/2009 Dyslipidemia 08/24/2009 Overview: Per Lipid Taxonomy. Hypothyroidism 05/12/2009 documented as of this encounter (statuses as of 06/24/2024) Resolved Problems Problem Noted Date Diagnosed Date [...] as of this encounter (statuses as of 06/24/2024) Immunizations Name Administration Dates Next Due COVID-19, LNP-s, No Preserve , Lloyd-sucrose, Ages 12+ (Pfizer) 03/20/2022 H1N1 2009 Influenza, IM 11/09/2009 Pneumococcal Conjugate Vacci ne, 20-valent ([id number]) 02/04/2023 Pneumococcal Polysaccharide PPV23 (Pneumovax) 01/17/2009 Seasonal [...] Never 06/02/2023 How often do you attend episcopalian or scientology serv ices? Never 06/02/2023 Do you belong to any clubs o r organizations such as episcopalian groups, unions, fraternal or athletic groups, or [...] Recorded PHQ Adult Total Score 0 02/04/2023 [facility]at ional [facility] - [...] Telephone Encounter - Tha Rangel RPh - 06/24/2024 12:50 PM EDTRefused Prescriptions: Disp Refills Fluticasone-Salmeterol 115-21 MCG/ACT Inha*12 g 12 Sig: Inhale2 Puffs by mouth in the morning and 2 Puffs before bedtime.Refused By: THA RANGEL for Refusal: Duplicate Request documented in this encounter Plan of Treatment Upcoming Encounters Date Type Department Care Team (Late st Contact Info) Description 11/10/2024 5:00 PM EST Office Visit Family [address] [place] [address] Ninfa Cruz, DO [address] [place] [address] Health Maintenance Due Date Last Done Comments DISCUSS TOBACCO CESSATION (REFER TO SMARTSET #[id number]) 1965 Cologuard 2008 Sigmoidoscopy 2008 Fecal Occult [...] Directives occurred with: Not Discussed Care Teams Bricklayer Relationship Specialty Start Date End Date Ninfa Cruz DO [address] [facility] [place] [address] PCP - General Family Medicine 02/08/16 documented as of this encounter
--- OUTSIDE RECORDS SUMMARY | 2024-11-18 23:23 | External Medical Summary | Summary of Care ---
Author Name Unknown Organization [facility] Address [address] [facility] [place] [address] Phone [phone] Care Team Providers Care Adult Health Clinical Nurse Specialist Name Role Phone Val Persaud DO Primary Care Provider [phone] Reason for Visit * Reason Onset Date Comments Medication Refill 06/22/2024 Encounter Details Date Type Department Care Team (Late st Contact Info) Description 06/22/2024 Refill Family Practice [facility] [address] [facility] [address] Val Persaud DO [address] [place] [address] Gastroesophageal reflux disease with esophagitis without hemorrhage [...] MG/24HR Transdermal Patch 24 Hour (Nicoderm CQ)Indications:Toba student accounts coordinator use disorder PLACE 1 PATCH OVER 24 [...] Fluticasone-Salmete rol 115-21 MCG/ACT Inhalation Aerosol (Advair HFA)Indications: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 473 mL 1 4 Active CVS Stomach Relief 525 MG/30ML [...] abuse 12/31/2022 Overview: UDS + meth 11/23/22 [facility], new onset of paranoia and confusion [...] very minimal noted on overnight PSG 2 [facility] Gastroesophageal reflux disease with esophagitis 03/14/2011 [...] IM 11/09/2009 Pneumococcal Conjugate Vacci ne, 20-valent ([id number]) 02/04/2023 Pneumococcal Polysaccharide PPV23 (Pneumovax) 01/17/2009 Seasonal [...] How often do you attend orthodox or yazidism serv ices? Never 06/02/2023 Do [...] Telephone Encounter - Val Persaud DO - 06/24/2024 1:02 PM EDTSigned Prescriptions: Disp Refills Bismuth Subsalicylate 262 MG/15ML Oral Chani*473 mL 1 Sig: Take 30 mL by mouth every 6 hours as needed for Nausea. Authorizing Provider: VAL PERSAUD * Telephone Encounter - Seema Rangel [facility] - 06/24/2024 12:52 PM EDTPending Prescriptions: Disp Refills Bismuth Subsalicylate 262 MG/15ML Oral Chani*473 mL 1 Sig: Take 30 mL by mouth every 6 hours as needed for Nausea. * Telephone Encounter - Seema Rangel RPh - 06/24/2024 12:51 PM EDT Did you pend patient's preferred pharmacy and medication before forwarding?yes Pharmacy: [id number] [facility] Pending Prescriptions: Disp Refills Bismuth Subsalicylate 262 MG/15ML Oral Valdez*473 mL 1 Sig: Take 30 mL by mouth every 6 hours as needed for Nausea. Last Visit: 06/24/2023 (in office), 04/23/2022 (telemedicine) Next Visit: 11/10/2024 If no future appointments scheduled, and last appointment is greater than a year ago, please schedule patient for a follow-up appointment Last date the medication was ordered: 06/17/24 Is this request for a controlled substance?No [...] [facility] [address] [place] [address] Val Persaud DO [address] [place] [address] Health Maintenance Due Date Last Done Comments DISCUSS TOBACCO CESSATION (REFER TO SMARTSET #[id number]) 1965 Cologuard 2008 Sigmoidoscopy 2008 Fecal Occult [...] Directives occurred with: Not Discussed Care Teams Adult Health Clinical Nurse Specialist Relationship Specialty Start Date End Date Val Persaud DO [address] [place] [address] PCP - General Family Medicine 02/08/16 documented as of this encounter
--- OUTSIDE RECORDS SUMMARY | 2024-11-18 23:23 | External Medical Summary | Summary of Care ---
Author Name Unknown Organization [facility] Address [address] [facility] [place] [address] Phone [phone] Care Team Providers Care Automatic Operator Name Role Phone Val Persaud DO Primary Care Provider [phone] Reason for Visit * Reason Onset Date Comments Medication Refill 06/21/2024 Encounter Details Date Type Department Care Team (Late st Contact Info) Description 06/21/2024 Refill Family Practice [facility] [address] [facility] [place] [address] Val Persaud DO [address] [place] [address] Vaginal atrophy Allergies Active Allergy Reactions Criticality [...] Transdermal Patch 24 Hour (Nicoderm CQ)Indications:Toba account installation specialist use disorder PLACE 1 PATCH OVER [...] (stomach upset). 473 mL 1 4 Active CVS Stomach Relief 525 MG/30ML Oral Suspension (Bismuth Subsalicylate)Indic ations:Gastroesopha geal reflux disease with esophagitis without hemorrhage TAKE 30 ML BY MOUTH EVERY 6 HOURS NEEDED FOR NAUSEA OR OTHER (STOMACH UPSET). 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 12 g 12 4 Active Estradiol 0.1 MG/GM Vaginal Cream (Estrace)Indication s:Menopause USE 1/4 OF APPLICATORFUL 2 TO 3 TIMES PER WEEK. 42.5 g 2 4 Active Estradiol 0.1 MG/GM Vaginal Cream (Estrace)Indication s:Menopause USE 1/4 OF APPLICATORFUL 2 TO 3 TIMES PER WEEK. 42.5 g 2 4 06/21/20 24 Discontinu ed(Refill) QUEtiapine Fumarate 25 MG Oral Tablet (SEROquel)Indicatio ns:Anxiety Take 1 Tablet by mouth every 8 hours as needed for Anxiety. 30 Tablet 4 06/20/20 24 Discontinu ed(Refill) documented as of this encounter (statuses as of 06/23/2024) Active Problems Problem Noted Date Diagnosed Date Food insecurity 06/23/2023 Overview: Per [facility] Protocol Severe episode of recurrent major depressive disorder, without psychotic features 06/01/2023 PTSD (post-traumatic stress disorder) 06/01/2023 Cannabis abuse 06/01/2023 Iron deficiency anemia 03/25/2023 Substance abuse 12/31/2022 Overview: UDS + meth 11/23/22 [facility], new onset of paranoia and confusion UDS [...] overnight PSG 2 [facility] Gastroesophageal reflux disease with esophagitis 03/14/2011 [...] IM 11/09/2009 Pneumococcal Conjugate Vacci ne, 20-valent ([id number]) 02/04/2023 Pneumococcal Polysaccharide PPV23 (Pneumovax) 01/17/2009 Seasonal [...] How often do you attend sikhism or yazidi serv ices? Never 06/02/2023 Do you belong [...] PHQ Adult Total Score 0 02/04/2023 [facility]at [facility] - Occupational [...] encounter Miscellaneous Notes * Telephone Encounter - Vla Persaud DO - 06/23/2024 1:44 PM EDTSigned Prescriptions: Disp Refills Estradiol 0.1 MG/GM Vaginal Cream (Estrace)42.5 g 2 Sig: USE 1/4 OF APPLICATORFUL 2 TO 3 TIMES PER WEEK. Authorizing Provider: VAL PERSAUD * Telephone Encounter - Morris Sanchez CMA - 06/23/2024 10:07 AM EDTPending Prescriptions: Disp Refills Estradiol 0.1 MG/GM Vaginal Cream (Estrace)42.5 g 2 Sig: USE 1/4 OF APPLICATORFUL 2 TO 3 TIMES PER WEEK. * Telephone Encounter - Morris Sanchez CMA - 06/23/2024 10:07 AM EDT Did you pend patient's preferred pharmacy and medication before forwarding?yes Pharmacy: [id number] Pending Prescriptions: Disp Refills Estradiol 0.1 MG/GM Vaginal Cream (Estrac*42.5 g 2 Sig: USE 1/4 OF APPLICATORFUL 2 TO 3 TIMES PER WEEK. Last Visit: 06/24/2023 (in office), 04/23/2022 (telemedicine) Next Visit: 11/10/2024 If no future appointments scheduled, and last appointment is greater than a year ago, please schedule patient for a follow-up appointment Last date the medication was ordered: 05/12/2024 Is this request for a controlled substance?No [...] * Telephone Encounter - Anjana Hardin - 06/21/2024 6:29 PM EDTPending Prescriptions: Disp Refills Estradiol 0.1 MG/GM Vaginal Cream (Estrace)42.5 g 2 Sig: USE 1/4 OF APPLICATORFUL 2 TO 3 TIMES PER WEEK. documented in this encounter Plan of Treatment Upcoming Encounters Date Type Department Care Team (Late st Contact Info) Description 11/10/2024 5:00 PM EST Office Visit Family Practice [facility] [address] [place] [address] Val Persaud, [address] [place] [address] Health Maintenance Due Date Last Done Comments DISCUSS TOBACCO CESSATION (REFER TO SMARTSET #[id number]) 1965 Cologuard 2008 Sigmoidoscopy 2008 Fecal Occult [...] patient have Health Care Power of Attor syead? No * Full Code Date Activated Date Inactivated Comments 09/01/2019 12:05 PM 09/03/2019 5:41 PM This orde r reflects the patients wishes and were consensually agreed upon. * Full Code Date Activated Date Inactivated Comments 09/01/2019 7:07 AM 09/01/2019 12:05 PM Question Answer Comments Discussion of Advance Directives occurred with: Not Discussed Care Teams Automatic Operator Relationship Specialty Start Date End Date Val Persaud DO [address] [place] [address] PCP - General Family Medicine 02/08/16 documented as of this encounter
--- OUTSIDE RECORDS SUMMARY | 2024-11-18 23:23 | External Medical Summary | Summary of Care ---
Author Name Unknown Organization [facility] Address [address] [facility] [place] [address] Phone [phone] Care Team Providers Care Rebar Worker Name Role Phone Ninfa Cruz DO Primary Care Provider [phone] Reason for Visit * Reason Onset Date Comments Medication Refill 06/18/2024 Encounter Details Date Type Department Care Team (Late st Contact Info) Description 06/18/2024 Refill Family Practice [facility] [address] [facility] [address] Ninfa Cruz DO [address] [place] [address] Allergies Active Allergy Reactions Criticality Noted Date [...] as of this encounter (statuses as of 06/21/2024) Medications Medication Sig Dispensed Refills Start Date [...] MG/24HR Transdermal Patch 24 Hour (Nicoderm CQ)Indications: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 12 g 12 06/18/2024 Active documented as of this encounter (statuses as of 06/21/2024) Active Problems Problem Noted Date Diagnosed Date Food insecurity 06/23/2023 Overview: Per [facility] Protocol Severe episode of recurrent major depressive disorder, without psychotic features 06/01/2023 PTSD (post-traumatic stress disorder) 06/01/2023 Cannabis abuse 06/01/2023 Iron deficiency anemia 03/25/2023 Substance abuse 12/31/2022 Overview: UDS + meth 11/23/22 [facility], new onset of paranoia and confusion [...] as of this encounter (statuses as of 06/21/2024) Resolved Problems Problem Noted Date Diagnosed Date [...] as of this encounter (statuses as of 06/21/2024) Immunizations Name Administration Dates Next Due COVID-19, LNP-s, No Preserve , Lloyd-sucrose, Ages 12+ (Pfizer) 03/20/2022 H1N1 2009 Influenza, IM 11/09/2009 Pneumococcal Conjugate Vacci ne, 20-valent ([id number]) 02/04/2023 Pneumococcal Polysaccharide PPV23 (Pneumovax) 01/17/2009 Seasonal [...] often do you attend latter day or shinto serv ices? Never 06/02/2023 Do [...] Recorded PHQ Adult Total Score 0 02/04/2023 [facility] of Occupat ional [facility] [...] Telephone Encounter - Nicky Boone RPh - 06/21/2024 9:18 AM EDT Refused Prescriptions: Disp Refills Ondansetron 4 MG Oral Tablet Disintegratin*90 Tab*5 Sig: Place 1 Tablet on tongue every 6 hours as needed for Nausea.Refused By: NICKY BOONE for Refusal: Too soon documented in this encounter Plan of Treatment Upcoming Encounters Date Type Department Care Team (Late st Contact Info) Description 11/10/2024 5:00 PM EST Office Visit Family [facility] [address] [place] [address] Ninfa Cruz, [address] [place] [address] Health Maintenance Due Date Last Done Comments DISCUSS TOBACCO CESSATION (REFER TO SMARTSET #3405) 1965 Cologuard 2008 Sigmoidoscopy 2008 Fecal Occult Blood Test 12/05/2019 12/04/2018 Mammogram 07/04/2021 07/04/2020, 01/15, 08/27/2016, Additional history exists COVID-19 Vaccine (2 - Pfizer risk series) 04/10/2022 03/20/2022 Depression Monitoring 02/05/2024 02/04/2023 Influenza Vaccine (FLU shot) (#1) 2024 06/24/2023, 07/04/2020, 06/29/2019, Additional history exists GFR 06/01/2024 06/01/2023, 01/14, 01/20/2023, Additional history [...] (6 to 64 Years) Completed 02/04/2023, 01/17/2009 HPV (Gardasil) Vaccine Aged Out No lo [...] Directives occurred with: Not Discussed Care Teams Rebar Worker Relationship Specialty Start Date End Date Ninfa Cruz DO [address] [place] [address] PCP - General Family Medicine 02/08/16 documented as of this encounter
--- OUTSIDE RECORDS SUMMARY | 2024-11-18 23:23 | External Medical Summary | Summary of Care ---
Author Name Unknown Organization [facility] Address [address] [facility] [place] [address] Phone [phone] Care Team Providers Care Industrial Photographer Name Role Phone Ninfa Cruz DO Primary Care Provider [phone] Reason for Visit * Reason Onset Date Comments Medication Refill 06/21/2024 Encounter Details Date Type Department Care Team (Late st Contact Info) Description 06/21/2024 Refill Family Practice [facility] [address] [facility] [place] [address] Ninfa Cruz DO [address] [place] [address] Allergies Active Allergy Reactions Criticality Noted Date [...] MG/24HR Transdermal Patch 24 Hour (Nicoderm CQ)Indications: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 use disorder PLACE 1 PATCH OVER [...] Fluticasone-Salmete rol 115-21 MCG/ACT Inhalation Aerosol (Advair HFA)Indications: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 Never 06/02/2023 Do you belong [...] Total Score 0 02/04/2023 [facility] of Occupat ional [facility] - Occupational Stress Questionnaire Answer Date [...] encounter Miscellaneous Notes * Telephone Encounter - Sunni Abreu RPh - 06/23/2024 10:11 AM EDT Refused Prescriptions: Disp Refills Ondansetron 4 MG Oral Tablet Disintegratin*90 Tab*5 Sig: Place 1 Tablet on tongue every 6 hours as needed for Nausea.Refused By: SUNNI ABREU for Refusal: Too soon documented in this encounter Plan of Treatment Upcoming Encounters Date Type Department Care Team (Late st Contact Info) Description 11/10/2024 5:00 PM EST Office Visit Family [facility] [address] [place] [address] Ninfa Cruz, [address] [place] [address] Health Maintenance Due Date Last Done Comments DISCUSS TOBACCO CESSATION (REFER TO SMARTSET #[id number]) 1965 Cologuard 2008 Sigmoidoscopy 2008 Fecal Occult [...] occurred with: Not Discussed Care Teams Industrial Photographer Relationship Specialty Start Date End Date Ninfa Cruz DO [address] [place] [address] PCP - General Family Medicine 02/08/16 documented as of this encounter
--- OUTSIDE RECORDS SUMMARY | 2024-11-18 23:23 | External Medical Summary | Summary of Care ---
Author Name Unknown Organization [facility] Address [address] [facility] [place] [address] Phone [phone] Care Team Providers Care Sewer Bricklayer Name Role Phone Val Persaud DO Primary Care Provider Reason for Visit * Reason Onset Date Comments Medication Refill 06/20/2024 Encounter Details Date Type Department Care Team (Late st Contact Info) Description 06/20/2024 Refill Family Practice [facility] [address] [facility] [place] [address] Val Persaud DO [address] [place] [address] Allergies Active Allergy Reactions Criticality Noted Date [...] MG/24HR Transdermal Patch 24 Hour (Nicoderm CQ)Indications: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 use disorder PLACE 1 PATCH OVER 24 [...] Fluticasone-Salmete rol 115-21 MCG/ACT Inhalation Aerosol (Advair HFA)Indications: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 Never 06/02/2023 Do you belong to any clubs o r organizations such as jehovah's witness groups, unions, fraternal or athletic groups, or [...] Recorded PHQ Adult Total Score 0 02/04/2023 [facility] - Occupational [...] Telephone Encounter - Val Persaud DO - 06/23/2024 1:44 PM EDTSigned Prescriptions: Disp Refills QUEtiapine Fumarate 25 MG Oral Tablet (SER*30 Tab*0 Sig: Take 1 Tablet by mouth every 8 hours as needed for Anxiety. Authorizing Provider: VAL PERSAUD * Telephone Encounter - Nicole Almanza LPN - 06/23/2024 9:40 AM EDTPending Prescriptions: Disp Refills QUEtiapine Fumarate 25 MG Oral Tablet (SER*30 Tab*0 Sig: Take 1 Tablet by mouth every 8 hours as needed for Anxiety. * Telephone Encounter - Nicole Almanza LPN - 06/23/2024 9:40 AM EDT Did you pend patient's preferred pharmacy and medication before forwarding?yes Pharmacy: [id number] Pending Prescriptions: Disp Refills QUEtiapine Fumarate 25 MG Oral Tablet (SE*30 Tab*0 Sig: Take 1 Tablet by mouth every 8 hours as needed for Anxiety. Last Visit: 06/24/2023 (in office), 04/23/2022 (telemedicine) Next Visit: 11/10/2024 If no future appointments scheduled, and last appointment is greater than a year ago, please schedule patient for a follow-up appointment Last date the medication was ordered: 06/03/24 Is this request for a controlled substance?No [...] 12/20/2019 01:23 PM * Telephone Encounter - Veronica Preston RP - 06/22/2024 1:46 PM EDT Pending Prescriptions: Disp Refills QUEtiapine Fumarate 25 MG Oral Tablet (SER*30 Tab*0 Sig: Take 1 Tablet by mouth every 8 hours as needed for Anxiety. * Telephone Encounter - Anjana Hardin - 06/21/2024 8:28 AM EDTPending Prescriptions: Disp Refills QUEtiapine Fumarate 25 MG Oral Tablet (SER*30 Tab*0 Sig: Take 1Tablet by mouth every 8 hours as needed for Anxiety. documented in this encounter Plan of Treatment Upcoming Encounters Date Type Department Care Team (Late st Contact Info) Description 11/10/2024 5:00 PM EST Office Visit Family Practice [facility] [address] [place] [address] Val Persaud DO [address] [place] [address] Health Maintenance Due Date Last Done Comments DISCUSS TOBACCO CESSATION (REFER TO SMARTSET #[id number]) 1965 Cologuard 2008 Sigmoidoscopy 2008 Fecal Occult [...] Directives occurred with: Not Discussed Care Teams Sewer Bricklayer Relationship Specialty Start Date End Date Val Persaud DO [address] [place] [address] PCP - General Family Medicine 02/08/16 documented as of this encounter
--- OUTSIDE RECORDS SUMMARY | 2024-11-18 23:23 | External Medical Summary | Summary of Care ---
Author Name Unknown Organization [facility] Address [address] [facility] [place] [address] Phone [phone] Care Team Providers Care Community Resource Consultant Name Role Phone Ninfa Cruz DO Primary Care Provider [phone] Reason for Visit * Reason Onset Date Comments Medication Refill 06/20/2024 Encounter Details Date Type Department Care Team (Late st Contact Info) Description 06/20/2024 Refill Family Practice [facility] [address] [facility] [place] [address] Ninfa Cruz DO [address] [place] [address] Gastroesophageal reflux disease with esophagitis without hemorrhage [...] as of this encounter (statuses as of 06/22/2024) Medications Medication Sig Dispensed Refills Start Date [...] MG/24HR Transdermal Patch 24 Hour (Nicoderm CQ)Indications:Toba accounts executive use disorder PLACE 1 PATCH OVER [...] Fluticasone-Salmete rol 115-21 MCG/ACT Inhalation Aerosol (Advair HFA)Indications: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 12 g 12 06/18/2024 Active documented as of this encounter (statuses as of 06/22/2024) Active Problems Problem Noted Date Diagnosed Date Food insecurity 06/23/2023 Overview: Per [facility] Protocol Severe episode of recurrent major depressive disorder, without psychotic features 06/01/2023 PTSD (post-traumatic stress disorder) 06/01/2023 Cannabis abuse 06/01/2023 Iron deficiency anemia 03/25/2023 Substance abuse 12/31/2022 Overview: UDS + meth 11/23/22 [place], new onset [...] very minimal noted on overnight PSG 2 [facility] Gastroesophageal reflux disease with esophagitis 03/14/2011 HTN, goal below 130/80 03/13/2011 Fibromyalgia 04/05/2010 Chronic nausea 04/02/2010 Overview: ICD-10 update of inactive term Intermittent asthma with rel iever use up to twice per week without complication 01/04/2010 ANDRE (generalized anxiety disorder) 10/24/2009 Dyslipidemia 08/24/2009 Overview: Per Lipid Taxonomy. Hypothyroidism 05/12/2009 documented as of this encounter (statuses as of 06/22/2024) Resolved Problems Problem Noted Date Diagnosed Date [...] as of this encounter (statuses as of 06/22/2024) Immunizations Name Administration Dates Next Due COVID-19, LNP-s, No Preserve , Lloyd-sucrose, Ages 12+ (Pfizer) 03/20/2022 H1N1 2009 Influenza, IM 11/09/2009 Pneumococcal Conjugate Vacci ne, 20-valent ([id number]) 02/04/2023 Pneumococcal Polysaccharide PPV23 (Pneumovax) 01/17/2009 Seasonal [...] How often do you attend latter-day or restorationism serv ices? Never 06/02/2023 Do [...] Recorded PHQ Adult Total Score 0 02/04/2023 [facility] - Occupational Stress Questionnaire Answer Date [...] encounter Miscellaneous Notes * Telephone Encounter - Veronica Álvarez RPh - 06/22/2024 1:46 PM EDT Refused Prescriptions: Disp Refills Bismuth Subsalicylate 262 MG/15ML Oral Chani*473 mL 1 Sig: Take 30 mL by mouth every 6 hours as needed for Nausea or Other (stomach upset).Refused By: Candida ÁLVAREZ for Refusal: Duplicate Request --------- documented in this encounter Plan of Treatment Upcoming Encounters Date Type Department Care Team (Late st Contact Info) Description 11/10/2024 5:00 PM EST Office Visit Family Practice [facility] [address] [place] [address] Ninfa Cruz, [address] [place] [address] Health Maintenance Due Date Last Done Comments DISCUSS TOBACCO CESSATION (REFER TO SMARTSET #[id number]) 1965 Cologuard 2008 Sigmoidoscopy 2008 Fecal Occult [...] Directives occurred with: Not Discussed Care Teams Community Resource Consultant Relationship Specialty Start Date End Date Ninfa Cruz DO [address] [place] [address] PCP - General Family Medicine 02/08/16 documented as of this encounter
--- OUTSIDE RECORDS SUMMARY | 2024-11-18 23:24 | External Medical Summary | Summary of Care ---
Author Name Unknown Organization [facility] Address [address] [facility] [place] [address] Phone [phone] Care Team Providers Care Billing Administrator Name Role Phone Ninfa Cruz DO Primary Care Provider [phone] Reason for Visit * Reason Onset Date Comments Medication Refill 06/18/2024 Encounter Details Date Type Department Care Team (Late st Contact Info) Description 06/18/2024 [facility]ill Family [facility] [address] [facility] [place] [address] Ninfa Cruz DO [address] [place] [address] Allergies Active Allergy Reactions Criticality Noted Date [...] MG/24HR Transdermal Patch 24 Hour (Nicoderm CQ)Indications:Toba accounting director use disorder PLACE 1 PATCH OVER [...] Fluticasone-Salmete rol 115-21 MCG/ACT Inhalation Aerosol (Advair HFA)Indications: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 Never 06/02/2023 Do [...] Recorded PHQ Adult Total Score 0 02/04/2023 [facility] Occupat ional [facility] - Occupational Stress Questionnaire Answer [...] Encounter - Nicky Boone RPh - 06/21/2024 9:14 AM EDT Refused Prescriptions: Disp Refills Levothyroxine Sodium 75 MCG Oral Tablet (L*90 Tab*1 Sig: Take 1Tablet by mouth daily first thing in the morning.Refused By: NICKY BOONE for Refusal: Too soon documented in this encounter Plan of Treatment Upcoming Encounters Date Type Department Care Team (Late st Contact Info) Description 11/10/2024 5:00 PM EST Office Visit Family [facility] [address] [place] [address] Ninfa Cruz, [address] [place] [address] Health Maintenance Due Date Last Done Comments DISCUSS TOBACCO CESSATION (REFER TO SMARTSET #[id number]) 1965 Cologuard 2008 Sigmoidoscopy 2008 Fecal Occult [...] Directives occurred with: Not Discussed Care Teams Billing Administrator Relationship Specialty Start Date End Date Ninfa Cruz DO [address] [place] [address] PCP - General Family Medicine 02/08/16 documented as of this encounter
--- OUTSIDE RECORDS SUMMARY | 2024-11-18 23:24 | External Medical Summary | Summary of Care ---
Author Name Unknown Organization [facility] Address [address] [facility] [place] [address] Phone [phone] Care Team Providers Care Auto Mechanic Apprentice Name Role Phone Ninfa Cruz DO Primary Care Provider [phone] Reason for Visit * Reason Onset Date Comments Medication Refill 06/20/2024 Encounter Details Date Type Department Care Team (Late st Contact Info) Description 06/20/2024 Refill Family Practice [facility] [address] [facility] [place] [address] Ninfa Cruz DO [address] [place] [address] Gastroesophageal reflux disease with esophagitis without hemorrhage [...] Fluticasone-Salmete rol 115-21 MCG/ACT Inhalation Aerosol (Advair HFA)Indications: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 Never 06/02/2023 Do you belong to any clubs o r organizations such as voodoo groups, unions, fraternal or athletic groups, or [...] Recorded PHQ Adult Total Score 0 02/04/2023 [facility] - Occupational Stress Questionnaire Answer Date [...] Telephone Encounter - Anjana Hardin - 06/21/2024 8:29 AM EDTRefused Prescriptions: Disp Refills Bismuth Subsalicylate 262 MG/15ML Oral Chani*473 mL 1 Refused By:CARMELO HARDINeason for Refusal: Duplicate Request documented in this encounter Plan of Treatment Upcoming Encounters Date Type Department Care Team (Late st Contact Info) Description 11/10/2024 5:00 PM EST Office Visit Family Practice [facility] [address] [place] [address] Ninfa Cruz, [address] [place] [address] Health Maintenance Due Date Last Done Comments DISCUSS TOBACCO CESSATION (REFER TO SMARTSET #[id number]) 1965 Cologuard 2008 Sigmoidoscopy 2008 Fecal Occult [...] Directives occurred with: Not Discussed Care Teams Auto Mechanic Apprentice Relationship Specialty Start Date End Date Ninfa Cruz DO [address] [place] [address] PCP - General Family Medicine 02/08/16 documented as of this encounter
--- OUTSIDE RECORDS SUMMARY | 2024-11-18 23:24 | External Medical Summary | Summary of Care ---
Author Name Unknown Organization [facility] Address [address] [facility] [place] [address] Phone [phone] Care Team Providers Care Fiberglass Machine Operator Name Role Phone Ninfa Cruz DO Primary Care Provider [phone] Reason for Visit * Reason Onset Date Comments Medication Refill 06/16/2024 Encounter Details Date Type Department Care Team (Late st Contact Info) Description 06/16/[address] [facility] [address] [facility] [place] [address] Ninfa Cruz DO [address] [place] [address] Allergies Active Allergy Reactions Criticality Noted Date [...] as of this encounter (statuses as of 06/17/2024) Medications Medication Sig Dispensed Refills Start Date [...] the skin daily. 30 Patch 04/12/2024 Active Budesonide-Formoter ol Fumarate 160-4.5 MCG/ACT Inhalation Aerosol (Symbicort)Indicati ons:COPD, moderate (HCC) INHALE 2 PUFFS BY MOUTH TWICE DAILY 30.6 g 1 04/16/2024 Active Methocarbamol 500 MG Oral Tablet (Robamol) [...] MG/24HR Transdermal Patch 24 Hour (Nicoderm CQ)Indications:Toba payroll accounting manager use disorder PLACE 1 PATCH OVER [...] (STOMACH UPSET). 473 mL 1 06/17/2024 Active documented as of this encounter (statuses as of 06/17/2024) Active Problems Problem Noted Date Diagnosed Date Food insecurity 06/23/2023 Overview: Per [facility] Protocol Severe episode of recurrent major depressive disorder, without psychotic features 06/01/2023 PTSD (post-traumatic stress disorder) 06/01/2023 Cannabis abuse 06/01/2023 Iron deficiency anemia 03/25/2023 Substance abuse 12/31/2022 Overview: UDS + meth 11/23/22 [facility] [...] as of this encounter (statuses as of 06/17/2024) Resolved Problems Problem Noted Date Diagnosed Date [...] as of this encounter (statuses as of 06/17/2024) Immunizations Name Administration Dates Next Due COVID-19, LNP-s, No Preserve , Lloyd-sucrose, Ages 12+ (Pfizer) 03/20/2022 H1N1 2009 Influenza, IM 11/09/2009 Pneumococcal Conjugate Vacci ne, 20-valent ([id number]) 02/04/2023 Pneumococcal Polysaccharide PPV23 (Pneumovax) 01/17/2009 Seasonal [...] How often do you attend gnosticism or judaism serv ices? Never 06/02/2023 Do [...] Recorded PHQ Adult Total Score 0 02/04/2023 [facility] of Occupat ional [facility] - Occupational Stress Questionnaire [...] encounter Miscellaneous Notes * Telephone Encounter - Jen Greer [facility] - 06/17/2024 12:13 PM EDT Refused Prescriptions: Disp Refills Ondansetron 4 MG Oral Tablet Disintegratin*90 Tab*5 Sig: Place 1 Tablet on tongue every 6 hours as needed for Nausea.Refused By: JEN GREER for Refusal: Duplicate Request documented in this encounter Plan of Treatment Upcoming Encounters Date Type Department Care Team (Late st Contact Info) Description 11/10/2024 5:00 PM EST Office Visit Family [facility] [address] [place] [address] Ninfa Cruz DO [address] [place] [address] Health Maintenance Due Date Last Done Comments [...] Directives occurred with: Not Discussed Care Teams Fiberglass Machine Operator Relationship Specialty Start Date End Date Ninfa Cruz DO [address] [place] [address] PCP - General Family Medicine 02/08/16 documented as of this encounter
--- OUTSIDE RECORDS SUMMARY | 2024-11-18 23:24 | External Medical Summary | Summary of Care ---
Author Name Unknown Organization [facility] Address [address] [facility] [place] [address] Phone [phone] Care Team Providers Care Spool Fixer Name Role Phone Val Persaud DO Primary Care Provider [phone] Reason for Visit * Reason Comments eRx-Medication Refill Encounter Details Date Type Department Care Team (Late st Contact Info) Description 06/16/2024 Refill Family Practice [facility] [address] [facility] [place] [address] Val Persaud DO [address] [place] [address] Gastroesophageal reflux disease with esophagitis without hemorrhage [...] the skin daily. 30 Patch 4 Active Budesonide-Formoter ol Fumarate 160-4.5 MCG/ACT Inhalation Aerosol (Symbicort)Indicati ons:COPD, moderate (HCC) INHALE 2 PUFFS BY MOUTH TWICE DAILY 30.6 g 1 4 Active Methocarbamol 500 MG Oral Tablet [...] for Nausea. 90 Tablet 5 4 Active Estradiol 0.1 MG/GM Vaginal Cream (Estrace)Indication s:Menopause USE 1/4 OF APPLICATORFUL 2 TO 3 TIMES PER WEEK. 42.5 g 2 4 Active Fluticasone Propionate 50 MCG/ACT Nasal [...] the morning. 30 Tablet 5 4 Active QUEtiapine Fumarate 25 MG Oral Tablet (SEROquel)Indicatio ns:Anxiety Take 1 Tablet by mouth every 8 hours as needed for Anxiety. 30 Tablet 4 Active Nicotine 14 MG/24HR Transdermal Patch 24 Hour (Nicoderm CQ)Indications:Toba international account representative use disorder PLACE 1 PATCH OVER 24 [...] before bedtime. 60 Capsule 3 4 Active [facility] Stomach Relief 525 MG/30ML Oral Suspension (Bismuth Subsalicylate)Indic ations:Gastroesopha geal reflux disease with esophagitis without hemorrhage TAKE 30 ML BY MOUTH EVERY 6 HOURS NEEDED FOR NAUSEA OR OTHER (STOMACH UPSET). 473 mL 1 4 Active Bismuth Subsalicylate 262 MG/15ML Oral Suspension ([facility] Stomach Relief)Indications: Gastroesophageal reflux disease with esophagitis without hemorrhage Take 30 mL by mouth every 6 hours as needed for Nausea or Other (stomach upset). 473 mL 1 4 06/16/20 24 Discontinu ed(Refill) documented as of this encounter (statuses as of 06/17/2024) Active Problems Problem Noted Date Diagnosed Date Food insecurity 06/23/2023 Overview: Per [facility] Protocol Severe episode of recurrent major depressive disorder, without psychotic features 06/01/2023 PTSD (post-traumatic stress disorder) 06/01/2023 Cannabis abuse 06/01/2023 Iron deficiency anemia 03/25/2023 Substance abuse 12/31/2022 Overview: UDS + meth 11/23/22 [facility], new onset of paranoia and [...] minimal noted on overnight PSG 2 [facility] Gastroesophageal reflux disease with esophagitis [...] IM 11/09/2009 Pneumococcal Conjugate Vacci ne, 20-valent ([id number]) 02/04/2023 Pneumococcal Polysaccharide PPV23 (Pneumovax) 01/17/2009 Seasonal [...] How often do you attend moravian or gnosticist serv ices? Never 06/02/2023 Do [...] Recorded PHQ Adult Total Score 0 02/04/2023 [facility] - Occupational Stress Questionnaire Answer Date Recorded [...] Telephone Encounter - Val Persaud DO - 06/17/2024 9:51 AM EDTSigned Prescriptions: Disp Refills [facility] Stomach Relief 525 MG/30ML Oral Suspen*473 mL 1 Sig: TAKE 30 ML BY MOUTH EVERY 6 HOURS NEEDED FOR NAUSEA OR OTHER (STOMACH UPSET). Authorizing Provider: VAL PERSAUD * Telephone Encounter - Nicole Almanza LPN - 06/17/2024 7:02 AM EDTPending Prescriptions: Disp Refills [facility] Stomach Relief 525 MG/30ML Oral Suspen*473 mL 1 Sig: TAKE 30 ML BY MOUTH EVERY 6 HOURS NEEDED FOR NAUSEA OR OTHER (STOMACH UPSET). * Telephone Encounter - Nicole Almanza LPN - 06/17/2024 7:01 AM EDT Did you pend patient's preferred pharmacy and medication before forwarding?yes [facility]acy[id number] [facility] Pending Prescriptions: Disp Refills [facility] Stomach Relief 525 MG/30ML Oral Suspe*473 mL 1 Sig: TAKE 30 ML BY MOUTH EVERY 6 HOURS NEEDED FOR NAUSEA OR OTHER (STOMACH UPSET). Last Visit: 06/24/2023 (in office), 04/23/2022 (telemedicine) Next Visit: 11/10/2024 If no future appointments scheduled, and last appointment is greater than a year ago, please schedule patient for a follow-up appointment Last date the medication was ordered: 06/08/24 Is this request for a controlled substance?No [...] * Telephone Encounter - Anjana Hardin - 06/16/2024 7:16 PM EDTPending Prescriptions: Disp Refills [facility] Stomach Relief 525 MG/30ML Oral Suspen*473 mL 1 Sig: TAKE 30 ML BY MOUTH EVERY 6 HOURS NEEDED FOR NAUSEA OR OTHER (STOMACH UPSET). documented in this encounter Plan of Treatment Upcoming Encounters Date Type Department Care Team (Late st Contact Info) Description 11/10/2024 5:00 PM EST Office Visit Family Practice [facility] [address] [place] [address] Val Persaud, [address] [place] [address] Health Maintenance Due Date Last Done Comments DISCUSS TOBACCO CESSATION (REFER TO SMARTSET #[id number]) 1965 Cologuard 2008 Sigmoidoscopy 2008 Fecal Occult [...] Directives occurred with: Not Discussed Care Teams Spool Fixer Relationship Specialty Start Date End Date Val Persaud DO [address] [place] [address] PCP - General Family Medicine 02/08/16 documented as of this encounter
--- OUTSIDE RECORDS SUMMARY | 2024-11-18 23:24 | External Medical Summary | Summary of Care ---
Author Name Unknown Organization [facility] Address [address] [place] [address] Phone [phone] Care Team Providers Care Assistant Director Of Financial Aid Name Role Phone Ninfa Cruz DO Primary Care Provider [phone] Reason for Visit * Reason Onset Date Comments Medication Refill 06/18/2024 Encounter Details Date Type Department Care Team (Late st Contact Info) Description 06/18/2024 Refill Family Practice [facility] [address] [place] [address] Ninfa Cruz DO [address] [place] [address] COPD, group B, by GOLD 2017 classification ([facility]); Intermittent asthma with reliever use up to [...] as of this encounter (statuses as of 06/20/2024) Medications Medication Sig Dispensed Refills Start Date [...] MG/24HR Transdermal Patch 24 Hour (Nicoderm CQ)Indications:Toba financial analyst accountant use disorder PLACE 1 PATCH OVER [...] Fluticasone-Salmete rol 115-21 MCG/ACT Inhalation Aerosol (Advair HFA)Indications:DIRECTOR PAYMENT D, group B, by GOLD 2017 classification ([facility]),Intermittent asthma with reliever use up to twice per week without complication Inhale 2 Puffs by mouth in the morning and 2 Puffs before bedtime. 12 g 12 06/18/2024 Active documented as of this encounter (statuses as of 06/20/2024) Active Problems Problem Noted Date Diagnosed Date [...] very minimal noted on overnight PSG 2 [facility] Gastroesophageal reflux disease with esophagitis 03/14/2011 HTN, goal below 130/80 03/13/2011 Fibromyalgia 04/05/2010 Chronic nausea 04/02/2010 Overview: ICD-10 update of inactive term Intermittent asthma with rel iever use up to twice per week without complication 01/04/2010 ANDRE (generalized anxiety disorder) 10/24/2009 Dyslipidemia 08/24/2009 Overview: Per Lipid Taxonomy. Hypothyroidism 05/12/2009 documented as of this encounter (statuses as of 06/20/2024) Resolved Problems Problem Noted Date Diagnosed Date [...] as of this encounter (statuses as of 06/20/2024) Immunizations Name Administration Dates Next Due COVID-19, LNP-s, No Preserve , Lloyd-sucrose, Ages 12+ (Pfizer) 03/20/2022 H1N1 2009 Influenza, IM 11/09/2009 Pneumococcal Conjugate Vacci ne, 20-valent ([id number]) 02/04/2023 Pneumococcal Polysaccharide PPV23 (Pneumovax) 01/17/2009 Seasonal [...] Never 06/02/2023 How often do you attend samaritan or temple serv ices? Never 06/02/2023 Do you belong to any clubs o r organizations such as samaritan groups, unions, fraternal or athletic groups, or [...] Adult Total Score 0 02/04/2023 [facility] - Occupational [...] * Telephone Encounter - Anjana Hardin - 06/20/2024 8:53 AM EDTRefused Prescriptions: Disp Refills Fluticasone-Salmeterol 115-21 MCG/ACT Inha*12 g 12 Sig: Inhale 2 Puffs by mouth in the morning and 2 Puffs before bedtime.Refused By: CARMELO HARDINeason for Refusal: Duplicate Request documented in this encounter Plan of Treatment Upcoming Encounters Date Type Department Care Team (Late st Contact Info) Description 11/10/2024 5:00 PM EST Office Visit Family Practice [facility] [address] [place] [address] Newhouser, Ninfa M, DO [address] [place] [address] Health Maintenance Due Date Last Done Comments DISCUSS TOBACCO CESSATION (REFER TO SMARTSET #[id number]) 1965 Cologuard 2008 Sigmoidoscopy 2008 Fecal Occult [...] occurred with: Not Discussed Care Teams Assistant Director Of Financial Aid Relationship Specialty Start Date End Date Ninfa Cruz DO [address] [place] [address] PCP - General Family Medicine 02/08/16 documented as of this encounter
--- OUTSIDE RECORDS SUMMARY | 2024-11-18 23:24 | External Medical Summary | Summary of Care ---
Author Name Unknown Organization [facility] Address [address] [facility] [place] [address] Phone [phone] Care Team Providers Care Ui Software Developer Name Role Phone Ninfa Cruz DO Primary Care Provider [phone] Reason for Visit * Reason Onset Date Comments Medication Refill 06/17/2024 Encounter Details Date Type Department Care Team (Late st Contact Info) Description 06/17/[address] [facility] [address] [facility] [address] Ninfa Cruz DO [address] [place] [address] Gastroesophageal reflux disease with esophagitis without hemorrhage [...] as of this encounter (statuses as of 06/18/2024) Medications Medication Sig Dispensed Refills Start Date [...] Transdermal Patch 24 Hour (Nicoderm CQ)Indications:Toba accounts payable supervisor use disorder PLACE 1 PATCH OVER 24 [...] Fluticasone-Salmete rol 115-21 MCG/ACT Inhalation Aerosol (Advair HFA)Indications:PRIMARY CARE PEDIATRICIAN D, 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 12 g 12 06/18/2024 Active documented as of this encounter (statuses as of 06/18/2024) Active Problems Problem Noted Date Diagnosed Date [...] very minimal noted on overnight PSG 2 [facility] Gastroesophageal reflux disease with esophagitis 03/14/2011 HTN, goal below 130/80 03/13/2011 Fibromyalgia 04/05/2010 Chronic nausea 04/02/2010 Overview: ICD-10 update of inactive term Intermittent asthma with rel iever use up to twice per week without complication 01/04/2010 ANDRE (generalized anxiety disorder) 10/24/2009 Dyslipidemia 08/24/2009 Overview: Per Lipid Taxonomy. Hypothyroidism 05/12/2009 documented as of this encounter (statuses as of 06/18/2024) Resolved Problems Problem Noted Date Diagnosed Date [...] as of this encounter (statuses as of 06/18/2024) Immunizations Name Administration Dates Next Due COVID-19, LNP-s, No Preserve , Lloyd-sucrose, Ages 12+ (Pfizer) 03/20/2022 H1N1 2009 Influenza, IM 11/09/2009 Pneumococcal Conjugate Vacci ne, 20-valent ([id number]) 02/04/2023 Pneumococcal Polysaccharide PPV23 (Pneumovax) 01/17/2009 Seasonal [...] How often do you attend sabianism or adventist serv ices? Never 06/02/2023 Do [...] Recorded PHQ Adult Total Score 0 02/04/2023 [facility] [place] - Occupational Stress Questionnaire Answer Date Recorded [...] Notes * Telephone Encounter - Johnny Bartlett [facility] - 06/18/2024 2:43 PM EDTRefused Prescriptions: Disp Refills Bismuth Subsalicylate 262 MG/15ML Oral Chani*473 mL 1 Refused By:JOHNNY BARTLETT for Refusal: Duplicate Request documented in this encounter Plan of Treatment Upcoming Encounters Date Type Department Care Team (Late st Contact Info) Description 11/10/2024 5:00 PM EST Office Visit Family [facility] [address] [place] [address] Ninfa Cruz, [address] [place] [address] Health Maintenance Due Date Last Done Comments DISCUSS TOBACCO CESSATION (REFER TO SMARTSET #[id number]) 1965 Cologuard 2008 Sigmoidoscopy 2008 Fecal Occult [...] Directives occurred with: Not Discussed Care Teams Ui Software Developer Relationship Specialty Start Date End Date Ninfa Cruz DO [address] [place] [address] PCP - General Family Medicine 02/08/16 documented as of this encounter
--- OUTSIDE RECORDS SUMMARY | 2024-11-18 23:24 | External Medical Summary | Summary of Care ---
Author Name Unknown Organization [facility] Address [address] [facility] [place] [address] Phone [phone] Care Team Providers Care Project Manager Senior Name Role Phone Ninfa Cruz DO Primary Care Provider [phone] Reason for Visit * Reason Onset Date Comments Medication Refill 06/17/2024 Encounter Details Date Type Department Care Team (Late st Contact Info) Description 06/17/2024 Refill Family Practice [facility] [address] [facility] [address] Ninfa Cruz DO [address] [place] [address] Gastroesophageal reflux disease with esophagitis without hemorrhage [...] MG/24HR Transdermal Patch 24 Hour (Nicoderm CQ)Indications:Toba territory account manager use disorder PLACE 1 PATCH [...] abuse 12/31/2022 Overview: UDS + meth 11/23/22 [facility] [...] very minimal noted on overnight PSG 2 [facility] Gastroesophageal reflux disease with esophagitis 03/14/2011 HTN, [...] IM 11/09/2009 Pneumococcal Conjugate Vacci ne, 20-valent ([id number]) 02/04/2023 Pneumococcal Polysaccharide PPV23 (Pneumovax) 01/17/2009 Seasonal [...] How often do you attend pentecostal or baptist serv ices? Never 06/02/2023 Do [...] Recorded PHQ Adult Total Score 0 02/04/2023 [facility] ional [facility] - Occupational [...] * Telephone Encounter - Anjana Hardin - 06/17/2024 5:17 PM EDTRefused Prescriptions: Disp Refills Bismuth Subsalicylate 262 MG/15ML Oral Chani*473 mL 1 Sig: Take 30 mL by mouth every 6 hours as needed for Nausea or Other (stomach upset).Refused By: Jazzy HARDINon for Refusal: Duplicate Request documented in this encounter Plan of Treatment Upcoming Encounters Date Type Department Care Team (Late st Contact Info) Description 11/10/2024 5:00 PM EST Office Visit Family Practice [facility] [address] [place] [address] Ninfa Cruz, [address] [place] [address] Health Maintenance Due Date Last Done Comments DISCUSS TOBACCO CESSATION (REFER TO SMARTSET #[id number]) 1965 Cologuard 2008 Sigmoidoscopy 2008 Fecal Occult [...] Directives occurred with: Not Discussed Care Teams Project Manager Senior Relationship Specialty Start Date End Date Ninfa Cruz DO [address] [place] [address] PCP - General Family Medicine 02/08/16 documented as of this encounter
--- OUTSIDE RECORDS SUMMARY | 2024-11-18 23:24 | External Medical Summary | Summary of Care ---
Author Name Unknown Organization [facility] Address [address] [facility] [place] [address] Phone [phone] Care Team Providers Care Mixed Livestock Farm Worker Name Role Phone Val Persaud DO Primary Care Provider [phone] Reason for Visit * Reason Onset Date Comments Medication Refill 06/16/2024 Encounter Details Date Type Department Care Team (Late st Contact Info) Description 06/16/2024 Refill Family Practice [facility] [address] [facility] [place] [address] Val Persaud DO [address] [place] [address] Gastroesophageal reflux disease with esophagitis without hemorrhage [...] MG/24HR Transdermal Patch 24 Hour (Nicoderm CQ)Indications: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 473 mL 1 4 Active Bismuth Subsalicylate [...] noted on overnight PSG 2 [facility] Gastroesophageal reflux disease with esophagitis [...] IM 11/09/2009 Pneumococcal Conjugate Vacci ne, 20-valent ([id number]) 02/04/2023 Pneumococcal Polysaccharide PPV23 (Pneumovax) 01/17/2009 Seasonal [...] How often do you attend religion or sabianism serv ices? Never 06/02/2023 Do [...] Adult Total Score 0 02/04/2023 [facility] Occupat ional [facility] - Occupational [...] 06/17/2024 9:51 AM EDTSigned Prescriptions: Disp Refills Bismuth Subsalicylate 262 MG/15ML Oral Chani*473 mL 1 Sig: Take 30 mL by mouth every 6 hours as needed for Nausea or Other (stomach upset). Authorizing Provider: VAL PERSAUD * Telephone Encounter - Nicole Almanza LPN - 06/17/2024 7:03 AM EDTPending Prescriptions: Disp Refills Bismuth Subsalicylate 262 MG/15ML Oral Chani*473 mL 1 Sig: Take 30 mL by mouth every 6 hours as needed for Nausea or Other (stomach upset). * Telephone Encounter - Nicole Almanza LPN - 06/17/2024 7:02 AM EDT Did you pend patient's preferred pharmacy and medication before forwarding?yes Pharmacy: [id number] Pending Prescriptions: Disp Refills Bismuth Subsalicylate 262 MG/15ML Oral Valdez*473 mL 1 Sig: Take 30 mL by mouth every 6 hours as needed for Nausea or Other (stomach upset). Last Visit: 06/24/2023 (in office), 04/23/2022 (telemedicine) [...] Telephone Encounter - Anjana Hardin - 06/16/2024 5:40 PM EDTPending Prescriptions: Disp Refills Bismuth Subsalicylate 262 MG/15ML Oral Hcani*473 mL 1 Sig: Take 30 mL by mouth every 6 hours as needed for Nausea or Other (stomach upset). documented in this encounter Plan of Treatment Upcoming Encounters Date Type Department Care Team (Late st Contact Info) Description 11/10/2024 5:00 PM EST Office Visit Family [facility] [address] [place] [address] Val Persaud DO [address] [place] [address] Health Maintenance Due Date Last Done Comments DISCUSS TOBACCO CESSATION (REFER TO SMARTSET #[id number]) 1965 Cologuard 2008 Sigmoidoscopy 2008 Fecal Occult [...] Directives occurred with: Not Discussed Care Teams Mixed Livestock Farm Worker Relationship Specialty Start Date End Date Val Persaud DO [address] [place] [address] PCP - General Family Medicine 02/08/16 documented as of this encounter
--- OUTSIDE RECORDS SUMMARY | 2024-11-18 23:24 | External Medical Summary | Summary of Care ---
Author Name Unknown Organization [facility] Address [address] [facility] [place] [address] Phone [phone] Care Team Providers Care Plate Worker Helper Name Role Phone Ninfa Cruz DO Primary Care Provider [phone] Reason for Visit * Reason Onset Date Comments Medication Refill 06/18/2024 Encounter Details Date Type Department Care Team (Late st Contact Info) Description 06/18/2024 Refill Family Practice [facility] [address] [facility] [place] [address] Ninfa Cruz DO [address] [place] [address] Chronic pain syndrome Allergies Active Allergy Reactions [...] Transdermal Patch 24 Hour (Nicoderm CQ)Indications:Toba account developer use disorder PLACE 1 PATCH OVER 24 [...] Fluticasone-Salmete rol 115-21 MCG/ACT Inhalation Aerosol (Advair HFA)Indications: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 Never 06/02/2023 Do [...] Recorded PHQ Adult Total Score 0 02/04/2023 [facility] of Occupat ional [facility] - Occupational Stress Questionnaire Answer Date Recorded [...] Miscellaneous Notes * Telephone Encounter - Bereket Velasquez RPh - 06/21/2024 9:08 AM EDTRefused Prescriptions: Disp Refills Lyrica 225 MG Oral Capsule 60 Cap*3 Sig: Take 1 Capsule by mouth in the morning and 1 Capsule before bedtime.Refused By: BEREKET VELASQUEZ for Refusal: Too soonReason for Refusal Comment: sent 06/15/24 documented in this encounter Plan of Treatment Upcoming Encounters Date Type Department Care Team (Late st Contact Info) Description 11/10/2024 5:00 PM EST Office Visit Family Practice [facility] [address] [place] [address] Ninfa Cruz, [address] [place] [address] Health Maintenance Due Date Last Done Comments DISCUSS TOBACCO CESSATION (REFER TO SMARTSET #[id number]) 1965 Cologuard 2008 Sigmoidoscopy 2008 Fecal Occult [...] Directives occurred with: Not Discussed Care Teams Plate Worker Helper Relationship Specialty Start Date End Date Ninfa Cruz DO [address] [place] [address] PCP - General Family Medicine 02/08/16 documented as of this encounter
--- OUTSIDE RECORDS SUMMARY | 2024-11-18 23:25 | External Medical Summary | Summary of Care ---
Author Name Unknown Organization [facility] Address [address] [facility] [place] [address] Phone [phone] Care Team Providers Care Tube Tester Name Role Phone Ninfa Cruz DO Primary Care Provider Reason for Visit * Reason Onset Date Comments Medication Refill 06/02/2024 Encounter Details Date Type Department Care Team (Late st Contact Info) Description 06/02/2024 Refill Family Practice [facility] [address] [facility] [place] [address] Ninfa Cruz DO [address] [place] [address] Chronic pain syndrome Allergies Active Allergy Reactions [...] as of this encounter (statuses as of 06/11/2024) Medications Medication Sig Dispensed Refills Start Date End Date Status Fexofenadine HCl 180 MG Oral Tablet (GNP Allergy Relief) Take 1 Tablet by mouth daily as needed for Allergies. 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 28 Patch 1 07/31/20 23 Active Vitamin B-12 1000 MCG Oral Tablet (Cyanocobalamin)In dications:Vitamin Deficiency Prophylaxis Take 1 Tablet by mouth in the morning. 100 Tablet 3 09/23/19 24 Active Nicotine Polacrilex 2 MG Mouth/Throat Gum (Nicorette) Chew one piece of gum every 1 to 2 hours for the first 6 weeks, then 1 every 2 to 4 hours for weeks 7 to 9, then 1 every 4 to 8 hours. 120 Each 1 09/23/19 24 Active Ipratropium-Albute rol 0.5-2.5 (3) MG/3ML Inhalation Solution (Duoneb)Indication s:COPD, moderate (HCC) Inhale 3 mL via nebulizer in the morning and 3 mL at noon and 3 mL in the evening and 3 mL before bedtime. 180 mL 1 01/20/20 24 Active Nicotine Polacrilex 4 MG Mouth/Throat Gum (GNP Nicotine Polacrilex)Indicat ions:Tobacco use Chew one piece of gum every 1 to 2 hours for the first 6 weeks, then 1 every 2 to 4 hours for weeks 7 to 9, then 1 every 4 to 8 hours. 110 Each 02/10/20 24 Active Sucralfate 1 GM/10ML Oral [...] not cut, crush, or chew. 30 Capsule 03/01/20 24 Active Vitamin D3 1.25 MG (73122 UT) Oral CapsuleIndications :Vitamin D deficiency Take 1 Capsule by mouth once a week. 12 Capsule 03/16/20 24 024 Active Dexlansoprazole 60 MG Oral Capsule Delayed Release (Dexilant)Indicati ons:Gastroesophage al reflux disease with esophagitis without hemorrhage Take 1 Capsule by mouth in the morning. 90 Capsule 1 03/29/20 24 Active Prochlorperazine Maleate 10 MG Oral Tablet (Compazine) TAKE ONE TABLET BY MOUTH EVERY 6 HOURS NEEDED FOR NAUSEA 120 Tablet 2 04/05/20 24 Active Albuterol Sulfate HFA 108 (90 Base) MCG/ACT Inhalation Aerosol SolutionIndication s:COPD with Bronchospasms Prophylaxis Inhale 2 Puffs by mouth every 6 hours as needed for Dyspnea. 54 g 04/05/20 24 Active Lidocaine 5 % External Patch (Lidoderm)Indicati ons:Personal history of fall,Closed fracture of one rib of left side, initial encounter Place 1 Patch over 12 hours topically on the skin daily. 30 Patch 04/12/20 24 Active Budesonide-Formote rol Fumarate 160-4.5 MCG/ACT Inhalation Aerosol (Symbicort)Indicat ions:COPD, moderate (HCC) INHALE 2 PUFFS BY MOUTH TWICE DAILY 30.6 g 1 04/16/20 24 Active Methocarbamol 500 MG Oral Tablet [...] cut, crush or chew. 90 Capsule 1 05/06/20 24 Active Lyrica 225 MG Oral CapsuleIndications :Chronic pain syndrome Take 1 Capsule by mouth in the morning and 1 Capsule before bedtime. 60 Capsule 3 05/12/20 24 Active Ondansetron 4 MG Oral Tablet Disintegrating (Zofran)Indication s:Nausea Place 1 Tablet on tongue every 6 hours as needed for Nausea. 90 Tablet 5 05/12/20 24 Active Estradiol 0.1 MG/GM Vaginal Cream (Estrace)Indicatio ns:Menopause USE 1/4 OF APPLICATORFUL 2 TO 3 TIMES PER WEEK. 42.5 g 2 05/12/20 24 Active Fluticasone Propionate 50 MCG/ACT [...] urination 20 Tablet 3 05/18/20 24 Active Dexlansoprazole 60 MG Oral Capsule Delayed Release (Dexilant)Indicati ons:Gastroesophage al reflux disease with esophagitis without hemorrhage Take 1 Capsule by mouth in the morning. 90 Capsule 1 05/18/20 24 Active Dicyclomine HCl 10 MG [...] morning. 30 Tablet 5 06/02/20 24 Active QUEtiapine Fumarate 25 MG Oral Tablet (SEROquel)Indicati ons:Anxiety Take 1 Tablet by mouth every 8 hours as needed for Anxiety. 30 Tablet 06/03/20 24 Active Nicotine 14 MG/24HR Transdermal Patch 24 Hour (Nicoderm CQ)Indications:Tob acco use disorder Place 1 Patch over 24 hours topically on the skin daily. 28 Patch 04/12/20 24 024 Discontinued [facility] Stomach Relief 525 MG/30ML Oral Suspension (Bismuth Subsalicylate)Lexie cations:Gastroesop hageal reflux disease with esophagitis without hemorrhage TAKE 30 ML BY MOUTH EVERY 6 HOURS NEEDED FOR NAUSEA OR OTHER (STOMACH UPSET). 473 mL 1 05/25/20 24 024 Discontinued(Re fill) documented as of this encounter (statuses as of 06/11/2024) Active Problems Problem Noted Date Diagnosed Date Food insecurity 06/23/2023 Overview: Per [facility] Protocol Severe episode of recurrent major depressive disorder, without psychotic features 06/01/2023 PTSD (post-traumatic stress disorder) 06/01/2023 Cannabis abuse 06/01/2023 Iron deficiency anemia 03/25/2023 Substance abuse 12/31/2022 Overview: UDS + meth 11/23/22 [facility] [...] as of this encounter (statuses as of 06/11/2024) Resolved Problems Problem Noted Date Diagnosed Date [...] as of this encounter (statuses as of 06/11/2024) Immunizations Name Administration Dates Next Due COVID-19, LNP-s, No Preserve , Lloyd-sucrose, Ages 12+ (Pfizer) 03/20/2022 H1N1 2009 Influenza, IM 11/09/2009 Pneumococcal Conjugate Vacci ne, 20-valent ([id number]) 02/04/2023 Pneumococcal Polysaccharide PPV23 (Pneumovax) 01/17/2009 Seasonal Influenza, PF, 6 M & above, IM , (FluLaval or Fluzone) 06/24/2023,07/04/2020,06/29/2019,05/29,06/06/2017 Seasonal Influenza, Quadriva lent, No Preserve, IM 06/07/2016 Seasonal Influenza, Trivalen t, (IIV3), with Preserv, (Fluzone) 05/16/2013,06/12/2012,06/06/2011,06/07,08/29/2009,07/14/2008 TD - Tetanus/Diptheria (ADULT) 11/10/2006 TD, Preservative [...] How often do you attend gnosticist or rastafari serv ices? Never 06/02/2023 Do [...] Recorded PHQ Adult Total Score 0 02/04/2023 [facility] of Occupat ional [facility] - Occupational Stress Questionnaire Answer [...] Notes * Telephone Encounter - Nicky Boone [facility] - 06/11/2024 5:33 AM EDT Refused Prescriptions: Disp Refills Lyrica 225 MG Oral Capsule 60 Cap*3 Sig: Take 1 Capsule by mouth in the morning and 1 Capsule before bedtime. Refused By: NICKY BOONE Reason for Refusal: Too soon * Telephone Encounter - Dariusz Greer [facility] - 06/03/2024 8:58 PM EDT Postponed to 06/11 I have reviewed the patients controlled substance dispensing history in the Prescription Drug Monitoring Program in compliance with the [facility] regulations before prescribing a controlled substance. PDMP checked on 06/03/2024. Pending Prescriptions: Disp Refills Lyrica 225 MG Oral Capsule 60 Cap*3 Sig: Take 1 Capsule by mouth in the morning and 1 Capsule before bedtime. Last Visit: 06/24/2023 (in office), 04/23/2022 (telemedicine) Next Visit: 11/10/2024 Date medication was last filled: 05/16 Date medication is due for refill: 06/14 [id number] [address] [facility] Is this request for a controlled substance? Yes and Urine Drug Screen Not completed Toxicology results: Results for orders placed or performed during [...] results can be found in Results Review. Please approve if appropriate. Thanks, Dariusz Greer, PharmD Clinical Pharmacist [facility] [phone] 06/03/2024, 8:58 PM documented in this encounter Plan of Treatment Upcoming Encounters Date Type Department Care Team (Late st Contact Info) Description 11/10/2024 5:00 PM EST Office Visit Family [facility] [address] [place] [address] Ninfa Cruz DO [address] [place] [address] Health Maintenance Due Date Last Done Comments DISCUSS TOBACCO CESSATION (REFER TO SMARTSET #[id number]) 1965 Cologuard 2008 Sigmoidoscopy 2008 Fecal Occult [...] occurred with: Not Discussed Care Teams Tube Tester Relationship Specialty Start Date End Date Ninfa Cruz DO [address] [place] [address] PCP - General Family Medicine 02/08/16 documented as of this encounter
--- OUTSIDE RECORDS SUMMARY | 2024-11-18 23:25 | External Medical Summary | Summary of Care ---
Author Name Unknown Organization [facility] Address [address] [facility] [place] [address] Phone [phone] Care Team Providers Care Aircraft Sales Representative Name Role Phone Ninfa Cruz DO Primary Care Provider [phone] Reason for Visit * Reason Onset Date Comments Medication Refill 06/13/2024 Encounter Details Date Type Department Care Team (Late st Contact Info) Description 06/13/2024 Refill Family Practice [facility] [address] [facility] [place] [address] Ninfa Cruz DO [address] [place] [address] Seasonal allergies Allergies Active Allergy Reactions Criticality [...] as of this encounter (statuses as of 06/15/2024) Medications Medication Sig Dispensed Refills Start Date [...] or chew. 90 Capsule 1 05/06/2024 Active Lyrica 225 MG Oral CapsuleIndications: Chronic pain syndrome Take 1 Capsule by mouth in the morning and 1 Capsule before bedtime. 60 Capsule 3 05/12/2024 Active Ondansetron 4 MG Oral Tablet Disintegrating [...] needed for Anxiety. 30 Tablet 06/03/2024 Active Bismuth Subsalicylate 262 MG/15ML Oral Suspension ([employer] Stomach Relief)Indications: Gastroesophageal reflux disease with esophagitis without hemorrhage Take 30 mL by mouth every 6 hours as needed for Nausea or Other (stomach upset). 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 180 mL 1 06/13/2024 Active documented as of this encounter (statuses as of 06/15/2024) Active Problems Problem Noted Date Diagnosed Date Food insecurity 06/23/2023 Overview: Per [facility] Protocol Severe episode of recurrent major depressive disorder, without psychotic features 06/01/2023 PTSD (post-traumatic stress disorder) 06/01/2023 Cannabis abuse 06/01/2023 Iron deficiency anemia 03/25/2023 Substance abuse 12/31/2022 Overview: UDS + meth 11/23/22 [facility], [...] noted on overnight PSG 2 [facility] Gastroesophageal reflux disease with esophagitis 03/14/2011 HTN, goal below 130/80 03/13/2011 Fibromyalgia 04/05/2010 Chronic nausea 04/02/2010 Overview: ICD-10 update of inactive term Intermittent asthma with rel iever use up to twice per week without complication 01/04/2010 ANDRE (generalized anxiety disorder) 10/24/2009 Dyslipidemia 08/24/2009 Overview: Per Lipid Taxonomy. Hypothyroidism 05/12/2009 documented as of this encounter (statuses as of 06/15/2024) Resolved Problems Problem Noted Date Diagnosed Date [...] as of this encounter (statuses as of 06/15/2024) Immunizations Name Administration Dates Next Due COVID-19, LNP-s, No Preserve , Lloyd-sucrose, Ages 12+ (Pfizer) 03/20/2022 H1N1 2009 Influenza, IM 11/09/2009 Pneumococcal Conjugate Vacci ne, 20-valent ([id number]) 02/04/2023 Pneumococcal Polysaccharide PPV23 (Pneumovax) 01/17/2009 Seasonal [...] Never 06/02/2023 How often do you attend jew or tenriism serv ices? Never 06/02/2023 Do you belong to any clubs o r organizations such as jew groups, unions, fraternal or athletic groups, or [...] Recorded PHQ Adult Total Score 0 02/04/2023 [facility] - Occupational Stress [...] * Telephone Encounter - Anjana Hardin - 06/15/2024 12:04 AM EDTRefused Prescriptions: Disp Refills Loratadine 10 MG Oral Tablet (Claritin) 30 Tab*5 Sig: Take 1 Tablet by mouth in the morning.Refused By: Jazzy HARDINon for Refusal: Duplicate Request documented in this encounter Plan of Treatment Upcoming Encounters Date Type Department Care Team (Late st Contact Info) Description 11/10/2024 5:00 PM EST Office Visit Family [facility] [address] [place] [address] Ninfa Cruz DO [address] [place] [address] Health Maintenance Due Date Last Done Comments [...] Directives occurred with: Not Discussed Care Teams Aircraft Sales Representative Relationship Specialty Start Date End Date Ninfa Cruz DO [address] [facility] [place] [address] PCP - General Family Medicine 02/08/16 documented as of this encounter
--- OUTSIDE RECORDS SUMMARY | 2024-11-18 23:25 | External Medical Summary | Summary of Care ---
Author Name Unknown Organization [facility] Address [address] [facility] [place] [address] Phone [phone] Care Team Providers Care Audit Officer Name Role Phone Ninfa Cruz DO Primary Care Provider [phone] Reason for Visit * Reason Onset Date Comments Medication Refill 06/13/2024 Encounter Details Date Type Department Care Team (Late st Contact Info) Description 06/13/2024 Refill Family Practice [facility] [address] [facility] [place] [address] Ninfa Cruz DO [address] [place] [address] COPD, moderate (HCC) Allergies Active Allergy Reactions Criticality Noted [...] MG/24HR Transdermal Patch 24 Hour (Nicoderm CQ)Indications: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 Gastroesophageal reflux disease with esophagitis 03/14/2011 [...] IM 11/09/2009 Pneumococcal Conjugate Vacci ne, 20-valent ([id number]) 02/04/2023 Pneumococcal Polysaccharide PPV23 (Pneumovax) 01/17/2009 Seasonal [...] How often do you attend yazidi or holiness serv ices? Never 06/02/2023 Do [...] No 09/01/2019 documented as of this encounter Plan of Treatment Upcoming Encounters Date Type Department Care Team (Late st Contact Info) Description 11/10/2024 5:00 PM EST Office Visit Family Practice [facility] [address] [place] [address] Ninfa Cruz, [address] [place] [address] Health Maintenance Due Date Last Done Comments DISCUSS TOBACCO CESSATION (REFER TO SMARTSET #[id number]) 1963 Cologuard 2008 Sigmoidoscopy 2008 Fecal Occult [...] of this encounter Visit Diagnoses Diagnosis COPD, moderate (HCC) Chronic airway obstruction, not elsewhere classified documented in this encounter Advance Directives * [...] Directives occurred with: Not Discussed Care Teams Audit Officer Relationship Specialty Start Date End Date Ninfa Cruz DO [address] [place] [address] PCP - General Family Medicine 02/08/16 documented as of this encounter
--- OUTSIDE RECORDS SUMMARY | 2024-11-18 23:25 | External Medical Summary | Summary of Care ---
Author Name Unknown Organization [facility] Address [address] [facility] [place] [address] Phone [phone] Care Team Providers Care Restaurant Attendant Name Role Phone Val Persaud DO Primary Care Provider [phone] Reason for Visit * Reason Onset Date Comments Medication Refill 06/13/2024 Encounter Details Date Type Department Care Team (Late st Contact Info) Description 06/13/2024 Refill Family Practice [facility] [address] [facility] [place] [address] Val Persaud DO [address] [place] [address] Chronic pain syndrome Allergies Active Allergy Reactions [...] (stomach upset). 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 60 Capsule 3 4 Active Lyrica 225 MG Oral CapsuleIndications: Chronic pain syndrome Take 1 Capsule by mouth in the morning and 1 Capsule before bedtime. 60 Capsule 3 4 06/13/20 24 Discontinu ed(Refill) documented as of this [...] very minimal noted on overnight PSG 2 [facility] Gastroesophageal reflux disease with esophagitis 03/14/2011 [...] IM 11/09/2009 Pneumococcal Conjugate Vacci ne, 20-valent ([id number]) 02/04/2023 Pneumococcal Polysaccharide PPV23 (Pneumovax) 01/17/2009 Seasonal [...] How often do you attend mu-ism or anabaptist serv ices? Never 06/02/2023 Do [...] Recorded PHQ Adult Total Score 0 02/04/2023 [facility] - [...] Telephone Encounter - Val Persaud DO - 06/15/2024 9:44 AM EDTSigned Prescriptions: Disp Refills Lyrica 225 MG Oral Capsule 60 Cap*3 Sig: Take 1 Capsule by mouth in the morning and 1 Capsule before bedtime. Authorizing Provider: VAL PERSAUD * Telephone Encounter - Frandy Ortega [facility] - 06/15/2024 8:02 AM EDT Pending Prescriptions: Disp Refills Lyrica 225 MG Oral Capsule 60 Cap*3 Sig: Take 1 Capsule by mouth in the morning and 1 Capsule before bedtime. * Telephone Encounter - Frandy Ortega, [facility] - 06/15/2024 8:00 AM EDT I have reviewed the patients controlled substance dispensing history in the Prescription Drug Monitoring Program in compliance with the [facility] regulations before prescribing a controlled substance. PDMP checked on 06/15/2024. Pending Prescriptions: Disp Refills Lyrica 225 MG Oral Capsule 60 Cap*3 Sig: Take 1 Capsule by mouth in the morning and 1 Capsule before bedtime. Last Visit: 06/24/2023 (in office), 04/23/2022 (telemedicine) Next Visit: 11/10/2024 Date medication was last filled: 05/16/2024 Date medication is due for refill: 06/15/2024 Pharmacy: [id number] Is this request for a controlled substance? Yes and Urine Drug Screen was completed Toxicology results: Results for orders placed [...] in Results Review. Please approve if appropriate. Thank You, Frandy Ortega, Pharm-D Clinical Pharmacist [facility] ([facility]) [phone] 06/15/2024, 8:01 AM documented in this encounter Plan of Treatment Upcoming Encounters Date Type Department Care Team (Late st Contact Info) Description 11/10/2024 5:00 PM EST Office Visit Family [facility] [address] [place] [address] Val Persaud DO [address] [place] [address] Health Maintenance Due Date Last Done Comments DISCUSS TOBACCO CESSATION (REFER TO SMARTSET #[id number]) 1965 Cologuard 2008 Sigmoidoscopy 2008 Fecal Occult [...] Directives occurred with: Not Discussed Care Teams Restaurant Attendant Relationship Specialty Start Date End Date Val Persaud DO [address] [place] [address] PCP - General Family Medicine 02/08/16 documented as of this encounter
--- OUTSIDE RECORDS SUMMARY | 2024-11-18 23:25 | External Medical Summary | Summary of Care ---
Author Name Unknown Organization [facility] Address [address] [facility] [place] [address] Phone [phone] Care Team Providers Care Supervisor Respiratory Name Role Phone Ninfa Cruz DO Primary Care Provider [phone] Reason for Visit * Reason Onset Date Comments Medication Refill 06/13/2024 Encounter Details Date Type Department Care Team (Late st Contact Info) Description 06/13/2024 Refill Family Practice [facility] [address] [facility] [place] [address] Ninfa Cruz DO [address] [place] [address] Allergies Active Allergy Reactions Criticality Noted Date [...] Transdermal Patch 24 Hour (Nicoderm CQ)Indications:Toba accounts collector use disorder PLACE 1 PATCH OVER 24 [...] abuse 12/31/2022 Overview: UDS + meth 11/23/22 [facility], [...] IM 11/09/2009 Pneumococcal Conjugate Vacci ne, 20-valent ([id number]) 02/04/2023 Pneumococcal Polysaccharide PPV23 (Pneumovax) 01/17/2009 Seasonal [...] often do you attend jehovah's witness or mandaeism serv ices? Never 06/02/2023 Do [...] Recorded PHQ Adult Total Score 0 02/04/2023 [facility] - [...] No 12/22/2023 Does the household have a [facility]-lea general hospitallar source of income? (Household - for [...] encounter Miscellaneous Notes * Telephone Encounter - Seema Rangel [facility] - 06/15/2024 9:08 AM EDTRefused Prescriptions: Disp Refills Ondansetron 4 MG Oral Tablet Disintegratin*90 Tab*5 Sig: Place 1 Tablet on tongue every 6 hours as needed for Nausea.Refused By: SEEMA RANGEL for Refusal: Too soon documented in this encounter Plan of Treatment Upcoming Encounters Date Type Department Care Team (Late st Contact Info) Description 11/10/2024 5:00 PM EST Office Visit Family [facility] [address] [place] [address] Ninfa Cruz DO [address] [place] [address] Health Maintenance Due Date Last Done Comments [...] Directives occurred with: Not Discussed Care Teams Supervisor Respiratory Relationship Specialty Start Date End Date Ninfa Cruz DO [address] [place] [address] PCP - General Family Medicine 02/08/16 documented as of this encounter
--- OUTSIDE RECORDS SUMMARY | 2024-11-18 23:25 | External Medical Summary | Summary of Care ---
Author Name Unknown Organization [facility] Address [address] [facility] [place] [address] Phone [phone] Care Team Providers Care Onsite Case Manager Name Role Phone Ninfa Cruz DO Primary Care Provider [phone] Reason for Visit * Reason Onset Date Comments Medication Refill 06/12/2024 Encounter Details Date Type Department Care Team (Late st Contact Info) Description 06/12/2024 Refill Family Practice [facility] [address] [facility] [address] Ninfa Cruz DO [address] [place] [address] Gastroesophageal reflux disease with esophagitis without hemorrhage [...] as of this encounter (statuses as of 06/14/2024) Medications Medication Sig Dispensed Refills Start Date [...] crush, or chew. 30 Capsule 03/01/2024 Active Vitamin D3 1.25 MG (48669 UT) Oral CapsuleIndications: Vitamin D deficiency Take 1 Capsule by mouth once a week. 12 Capsule 03/16/2024 Active Dexlansoprazole 60 MG Oral Capsule Delayed [...] MG/24HR Transdermal Patch 24 Hour (Nicoderm CQ)Indications:Toba client services account manager use disorder PLACE 1 PATCH [...] as of this encounter (statuses as of 06/14/2024) Active Problems Problem Noted Date Diagnosed Date [...] overnight PSG 2 [facility] Gastroesophageal reflux disease with esophagitis 03/14/2011 HTN, goal below 130/80 03/13/2011 Fibromyalgia 04/05/2010 Chronic nausea 04/02/2010 Overview: ICD-10 update of inactive term Intermittent asthma with rel iever use up to twice per week without complication 01/04/2010 ANDRE (generalized anxiety disorder) 10/24/2009 Dyslipidemia 08/24/2009 Overview: Per Lipid Taxonomy. Hypothyroidism 05/12/2009 documented as of this encounter (statuses as of 06/14/2024) Resolved Problems Problem Noted Date Diagnosed Date [...] as of this encounter (statuses as of 06/14/2024) Immunizations Name Administration Dates Next Due COVID-19, LNP-s, No Preserve , Lloyd-sucrose, Ages 12+ (Pfizer) 03/20/2022 H1N1 2009 Influenza, IM 11/09/2009 Pneumococcal Conjugate Vacci ne, 20-valent ([id number]) 02/04/2023 Pneumococcal Polysaccharide PPV23 (Pneumovax) 01/17/2009 Seasonal [...] How often do you attend restoration or holiness serv ices? Never 06/02/2023 Do [...] Notes * Telephone Encounter - Julio Parker [facility] - 06/14/2024 2:53 PM EDT Refused Prescriptions: Disp Refills Bismuth Subsalicylate 262 MG/15ML Oral Chani*473 mL 1 Sig: Take 30 mL by mouth every 6 hours as needed for Nausea or Other (stomach upset).Refused By: JULIO PARKERSsm [facility] for Refusal: Duplicate Request documented in this encounter Plan of Treatment Upcoming Encounters Date Type Department Care Team (Late st Contact Info) Description 11/10/2024 5:00 PM EST Office Visit Family [facility] [address] [place] [address] Ninfa Cruz DO [address] [place] [address] Health Maintenance Due Date Last Done Comments [...] Directives occurred with: Not Discussed Care Teams Onsite Case Manager Relationship Specialty Start Date End Date Ninfa Cruz DO [address] [place] [address] PCP - General Family Medicine 02/08/16 documented as of this encounter
--- OUTSIDE RECORDS SUMMARY | 2024-11-18 23:25 | External Medical Summary | Summary of Care ---
Author Name Unknown Organization [facility] Address [address] [facility] [place] [address] Phone [phone] Care Team Providers Care Machine Cloth Trimmer Name Role Phone Ninfa Cruz DO Primary Care Provider [phone] Reason for Visit * Reason Onset Date Comments Medication Refill 06/14/2024 Encounter Details Date Type Department Care Team (Late st Contact Info) Description 06/14/2024 Refill Family Practice [facility] [address] [facility] [place] [address] Ninfa Cruz DO [address] [place] [address] Gastroesophageal reflux disease with esophagitis without hemorrhage [...] Capsule 03/01/2024 Active Vitamin D3 1.25 MG (04075 UT) Oral CapsuleIndications: Vitamin D deficiency Take [...] MG/24HR Transdermal Patch 24 Hour (Nicoderm CQ)Indications: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 Never 06/02/2023 Do you belong to any clubs o r organizations such as oriental orthodox groups, unions, fraternal or athletic groups, [...] 02/04/2023 [facility] ional Health - [...] * Telephone Encounter - Anjana Hardin - 06/14/2024 12:08 PM EDTRefused Prescriptions: Disp Refills Bismuth Subsalicylate 262 MG/15ML Oral Chani*473 mL 1 Sig: Take 30 mL by mouth every 6 hours as needed for Nausea or Other (stomach upset).Refused By: Maricel HARDIN for Refusal: Duplicate Request documented in this encounter Plan of Treatment Upcoming Encounters Date Type Department Care Team (Late st Contact Info) Description 11/10/2024 5:00 PM EST Office Visit Family Practice [facility] [address] [place] [address] Ninfa Cruz DO [address] [place] [address] Health Maintenance Due Date Last Done Comments DISCUSS TOBACCO CESSATION (REFER TO SMARTSET #8814) 1965 Cologuard 2008 Sigmoidoscopy 2008 Fecal Occult [...] occurred with: Not Discussed Care Teams Machine Cloth Trimmer Relationship Specialty Start Date End Date Ninfa Cruz DO [address] [place] [address] PCP - General Family Medicine 02/08/16 documented as of this encounter
--- OUTSIDE RECORDS SUMMARY | 2024-11-18 23:25 | External Medical Summary | Summary of Care ---
Author Name Unknown Organization [facility] Address [address] [facility] [place] [address] Phone [phone] Care Team Providers Care Apparel Trimmings Sales Representative Name Role Phone Val Persaud DO Primary Care Provider Reason for Visit * Reason Onset Date Comments Medication Refill 06/10/2024 Encounter Details Date Type Department Care Team (Late st Contact Info) Description 06/10/2024 Refill Family Practice [facility] [address] [facility] [address] Val Persaud DO [address] [place] [address] COPD, moderate (HCC) Allergies Active Allergy Reactions [...] as of this encounter (statuses as of 06/13/2024) Medications Medication Sig Dispensed Refills Start Date [...] crush, or chew. 30 Capsule 4 Active Vitamin D3 1.25 MG (52246 UT) Oral CapsuleIndications: Vitamin D deficiency Take 1 Capsule by mouth once a week. 12 Capsule 4 06/14/20 24 Active Dexlansoprazole 60 MG Oral Capsule [...] or chew. 90 Capsule 1 4 Active Lyrica 225 MG Oral CapsuleIndications: Chronic pain syndrome Take 1 Capsule by mouth in the morning and 1 Capsule before bedtime. 60 Capsule 3 4 Active Ondansetron 4 MG Oral Tablet [...] MG/24HR Transdermal Patch 24 Hour (Nicoderm CQ)Indications:Toba junior account manager use disorder PLACE 1 PATCH OVER 24 HOURS TOPICALLY ON THE SKIN DAILY 28 Patch 4 Active Ipratropium-Albuter ol 0.5-2.5 (3) MG/3ML Inhalation Solution (Duoneb)Indications :COPD, moderate (HCC) Inhale 3 mL via nebulizer in the morning and 3 mL at noon and 3 mL in the evening and 3 mL before bedtime. 180 mL 1 4 Active Ipratropium-Albuter ol 0.5-2.5 (3) MG/3ML Inhalation Solution (Duoneb)Indications :COPD, moderate (HCC) Inhale 3 mL via nebulizer in the morning and 3 mL at noon and 3 mL in the evening and 3 mL before bedtime. 180 mL 1 4 06/10/20 24 Discontinu ed(Refill) documented as of this encounter (statuses as of 06/13/2024) Active Problems Problem Noted Date Diagnosed Date Food insecurity 06/23/2023 Overview: Per [facility] Protocol Severe episode of recurrent major depressive disorder, without psychotic features 06/01/2023 PTSD (post-traumatic stress disorder) 06/01/2023 Cannabis abuse 06/01/2023 Iron deficiency anemia 03/25/2023 Substance abuse 12/31/2022 Overview: UDS + meth 11/23/22 [facility], new onset of paranoia [...] noted on overnight PSG 2 [facility] Gastroesophageal reflux disease with esophagitis 03/14/2011 HTN, goal below 130/80 03/13/2011 Fibromyalgia 04/05/2010 Chronic nausea 04/02/2010 Overview: ICD-10 update of inactive term Intermittent asthma with rel iever use up to twice per week without complication 01/04/2010 ANDRE (generalized anxiety disorder) 10/24/2009 Dyslipidemia 08/24/2009 Overview: Per Lipid Taxonomy. Hypothyroidism 05/12/2009 documented as of this encounter (statuses as of 06/13/2024) Resolved Problems Problem Noted Date Diagnosed Date [...] as of this encounter (statuses as of 06/13/2024) Immunizations Name Administration Dates Next Due COVID-19, LNP-s, No Preserve , Lloyd-sucrose, Ages 12+ (Pfizer) 03/20/2022 H1N1 2009 Influenza, IM 11/09/2009 Pneumococcal Conjugate Vacci ne, 20-valent ([id number]) 02/04/2023 Pneumococcal Polysaccharide PPV23 (Pneumovax) 01/17/2009 Seasonal [...] How often do you attend zoroastrianism or islam serv ices? Never 06/02/2023 Do you belong [...] 02/04/2023 [facility] - Occupational Stress Questionnaire Answer [...] Telephone Encounter - Michelle Ayala RPh - 06/13/2024 11:12 AM EDTSigned Prescriptions: Disp Refills Ipratropium-Albuterol 0.5-2.5 (3) MG/3ML I*180 mL 1 Sig: Inhale3 mL via nebulizer in the morning and 3 mL at noon and 3 mL in the evening and 3 mL before bedtime.Authorizing Provider: VAL PERSAUD User: MICHELLE AYALA documented in this encounter Plan of Treatment Upcoming Encounters Date Type Department Care Team (Late st Contact Info) Description 11/10/2024 5:00 PM EST Office Visit Family Practice [facility] [address] [place] [address] Val Persaud DO [address] [place] [address] Health Maintenance Due Date Last Done Comments DISCUSS TOBACCO CESSATION (REFER TO SMARTSET #[id number]) 1965 Cologuard 2008 Sigmoidoscopy 2008 Fecal Occult [...] Directives occurred with: Not Discussed Care Teams Apparel Trimmings Sales Representative Relationship Specialty Start Date End Date Val Persaud DO [address] [place] [address] PCP - General Family Medicine 02/08/16 documented as of this encounter
--- OUTSIDE RECORDS SUMMARY | 2024-11-18 23:26 | External Medical Summary | Summary of Care ---
Author Name Unknown Organization [facility] Address [address] [facility] [place] [address] Phone [phone] Care Team Providers Care Data Processing Equipment Repairer Name Role Phone Ninfa Cruz DO Primary Care Provider [phone] Reason for Visit * Reason Onset Date Comments Medication Refill 06/08/2024 Encounter Details Date Type Department Care Team (Late st Contact Info) Description 06/08/2024 [facility]ill [facility] [address] [facility] [address] Ninfa Cruz DO [address] [place] [address] Gastroesophageal reflux disease with esophagitis without hemorrhage [...] as of this encounter (statuses as of 06/09/2024) Medications Medication Sig Dispensed Refills Start Date [...] 8 hours. 120 Each 1 09/23/2023 Active Ipratropium-Albuter ol 0.5-2.5 (3) MG/3ML Inhalation Solution (Duoneb)Indications :COPD, moderate (HCC) Inhale 3 mL via nebulizer in the morning and 3 mL at noon and 3 mL in the evening and 3 mL before bedtime. 180 mL 1 01/20/2024 Active Nicotine Polacrilex 4 MG Mouth/Throat Gum [...] Capsule 03/01/2024 Active Vitamin D3 1.25 MG (20978 UT) Oral CapsuleIndications: Vitamin D deficiency Take [...] the skin daily. 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 28 Patch 04/12/2024 Active Budesonide-Formoter ol Fumarate 160-4.5 [...] (stomach upset). 473 mL 1 06/08/2024 Active documented as of this encounter (statuses as of 06/09/2024) Active Problems Problem Noted Date Diagnosed Date Food insecurity 06/23/2023 Overview: Per [facility] Protocol Severe episode of recurrent major depressive disorder, without psychotic features 06/01/2023 PTSD (post-traumatic stress disorder) 06/01/2023 Cannabis abuse 06/01/2023 Iron deficiency anemia 03/25/2023 Substance abuse 12/31/2022 Overview: UDS + meth 11/23/22 [facility], new onset of paranoia and confusion UDS [...] very minimal noted on overnight PSG 2 [facility] Gastroesophageal reflux disease with esophagitis 03/14/2011 HTN, goal below 130/80 03/13/2011 Fibromyalgia 04/05/2010 Chronic nausea 04/02/2010 Overview: ICD-10 update of inactive term Intermittent asthma with rel iever use up to twice per week without complication 01/04/2010 ANDRE (generalized anxiety disorder) 10/24/2009 Dyslipidemia 08/24/2009 Overview: Per Lipid Taxonomy. Hypothyroidism 05/12/2009 documented as of this encounter (statuses as of 06/09/2024) Resolved Problems Problem Noted Date Diagnosed Date [...] as of this encounter (statuses as of 06/09/2024) Immunizations Name Administration Dates Next Due COVID-19, LNP-s, No Preserve , Lloyd-sucrose, Ages 12+ (Pfizer) 03/20/2022 H1N1 2009 Influenza, IM 11/09/2009 Pneumococcal Conjugate Vacci ne, 20-valent ([id number]) 02/04/2023 Pneumococcal Polysaccharide PPV23 (Pneumovax) 01/17/2009 Seasonal [...] How often do you attend jain or latter day serv ices? Never 06/02/2023 Do you belong [...] PHQ Adult Total Score 0 02/04/2023 [facility] of Occupat ional [facility] - Occupational Stress Questionnaire Answer Date Recorded [...] * Telephone Encounter - Anjana Hardin - 06/09/2024 6:32 AM EDTRefused Prescriptions: Disp Refills Bismuth Subsalicylate [...] 5:00 PM EST Office Visit Family Practice [facility] [address] [place] [address] Ninfa Cruz DO [address] [place] [address] Health Maintenance Due Date Last Done Comments DISCUSS TOBACCO CESSATION (REFER TO SMARTSET #[id number]) 1963 Cologuard 2008 Sigmoidoscopy 2008 Fecal Occult [...] Directives occurred with: Not Discussed Care Teams Data Processing Equipment Repairer Relationship Specialty Start Date End Date Ninfa Cruz DO [address] [place] [address] PCP - General Family Medicine 02/08/16 documented as of this encounter
--- OUTSIDE RECORDS SUMMARY | 2024-11-18 23:26 | External Medical Summary | Summary of Care ---
Author Name Unknown Organization [facility] Address [address] [facility] [place] [address] Phone [phone] Care Team Providers Care Dosimetrist Name Role Phone Ninfa Cruz DO Primary Care Provider Reason for Visit * Reason Onset Date Comments Medication Refill 06/02/2024 Encounter Details Date Type Department Care Team (Late st Contact Info) Description 06/02/[address] 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 90 Capsule 1 05/18/2024 Active [facility] Stomach Relief 525 MG/30ML Oral Suspension (Bismuth Subsalicylate)Indic ations:Gastroesopha geal reflux disease with esophagitis without hemorrhage TAKE 30 ML BY MOUTH EVERY 6 HOURS NEEDED FOR NAUSEA OR OTHER (STOMACH UPSET). 473 mL 1 05/25/2024 Active Dicyclomine HCl 10 MG Oral Capsule [...] needed for Anxiety. 30 Tablet 06/03/2024 Active documented as of this encounter (statuses as of 06/03/2024) Active Problems Problem Noted Date Diagnosed Date [...] as of this encounter (statuses as of 06/03/2024) Resolved Problems Problem Noted Date Diagnosed Date [...] as of this encounter (statuses as of 06/03/2024) Immunizations Name Administration Dates Next Due COVID-19, LNP-s, No Preserve , Lloyd-sucrose, Ages 12+ (Pfizer) 03/20/2022 H1N1 2009 Influenza, IM 11/09/2009 Pneumococcal Conjugate Vacci ne, 20-valent ([id number]) 02/04/2023 Pneumococcal Polysaccharide PPV23 (Pneumovax) 01/17/2009 Seasonal [...] How often do you attend druze or scientology serv ices? Never 06/02/2023 Do [...] 0 02/04/2023 [facility] of Occupat ional [facility] - Occupational Stress Questionnaire Answer Date [...] Notes * Telephone Encounter - Jen Greer [facility] - 06/03/2024 8:58 PM EDT Refused Prescriptions: Disp Refills Bismuth Subsalicylate 262 MG/15ML Oral Chani*473 mL 1 Refused By:JEN GREER for Refusal: Duplicate Request documented in this encounter Plan of Treatment Upcoming Encounters Date Type Department Care Team (Late st Contact Info) Description 11/10/2024 5:00 PM EST Office Visit Family Practice [facility] [address] [place] [address] Ninfa Cruz DO [address] [place] [address] Health Maintenance Due Date Last Done Comments DISCUSS TOBACCO CESSATION (REFER TO SMARTSET #[id number]) 1965 Cologuard 2008 Sigmoidoscopy 2008 Fecal Occult [...] Directives occurred with: Not Discussed Care Teams Dosimetrist Relationship Specialty Start Date End Date Ninfa Cruz DO [address] [facility] [place] [address] PCP - General Family Medicine 02/08/16 documented as of this encounter
--- OUTSIDE RECORDS SUMMARY | 2024-11-18 23:26 | External Medical Summary | Summary of Care ---
Author Name Unknown Organization [facility] Address [address] [facility] [place] [address] Phone [phone] Care Team Providers Care Window Caser Name Role Phone Ninfa Cruz DO Primary Care Provider Reason for Visit * Reason Onset Date Comments Medication Refill 06/02/2024 Encounter Details Date Type Department Care Team (Late st Contact Info) Description 06/02/2024 Refill Family Practice [facility] [address] [facility] [address] Ninfa Cruz DO [address] [place] [address] Allergies Active Allergy Reactions Criticality Noted Date [...] Capsule 03/01/2024 Active Vitamin D3 1.25 MG (52593 UT) Oral CapsuleIndications: Vitamin D deficiency Take [...] MG/24HR Transdermal Patch 24 Hour (Nicoderm CQ)Indications: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 Never 06/02/2023 Do [...] Notes * Telephone Encounter - Jen Greer RPh - 06/03/2024 9:02 PM EDT Refused Prescriptions: Disp Refills Ondansetron 4 MG Oral Tablet Disintegratin*90 Tab*5 Sig: Place 1 Tablet on tongue every 6 hours as needed for Nausea.Refused By: JEN GREER for Refusal: Duplicate Request documented in this encounter Plan of Treatment Upcoming Encounters Date Type Department Care Team (Late st Contact Info) Description 11/10/2024 5:00 PM EST Office Visit Family Practice [facility] [address] [place] [address] Ninfa Cruz DO [address] [place] [address] Health Maintenance Due Date Last Done Comments DISCUSS TOBACCO CESSATION (REFER TO SMARTSET #[id number]) 1965 Cologuard 2008 Sigmoidoscopy 2008 Fecal Occult [...] Directives occurred with: Not Discussed Care Teams Window Caser Relationship Specialty Start Date End Date Ninfa Cruz DO [address] [place] [address] PCP - General Family Medicine 02/08/16 documented as of this encounter
--- OUTSIDE RECORDS SUMMARY | 2024-11-18 23:26 | External Medical Summary | Summary of Care ---
Author Name Unknown Organization [facility] Address [address] [facility] [place] [address] Phone [phone] Care Team Providers Care Process Safety Manager Name Role Phone Ninfa Cruz DO Primary Care Provider Reason for Visit * Reason Onset Date Comments Medication Refill 06/08/2024 Encounter Details Date Type Department Care Team (Late st Contact Info) Description 06/08/2024 Refill Family Practice [facility] [address] [facility] [address] Ninfa Cruz DO [address] [place] [address] Allergies Active Allergy Reactions Criticality Noted Date [...] as of this encounter (statuses as of 06/10/2024) Medications Medication Sig Dispensed Refills Start Date [...] Capsule 03/01/2024 Active Vitamin D3 1.25 MG (86557 UT) Oral CapsuleIndications: Vitamin D deficiency Take [...] THE SKIN DAILY 28 Patch 06/09/2024 Active documented as of this encounter (statuses as of 06/10/2024) Active Problems Problem Noted Date Diagnosed Date [...] PSG 2 [facility] Gastroesophageal reflux disease with esophagitis 03/14/2011 HTN, goal below 130/80 03/13/2011 Fibromyalgia 04/05/2010 Chronic nausea 04/02/2010 Overview: ICD-10 update of inactive term Intermittent asthma with rel iever use up to twice per week without complication 01/04/2010 ANDRE (generalized anxiety disorder) 10/24/2009 Dyslipidemia 08/24/2009 Overview: Per Lipid Taxonomy. Hypothyroidism 05/12/2009 documented as of this encounter (statuses as of 06/10/2024) Resolved Problems Problem Noted Date Diagnosed Date [...] as of this encounter (statuses as of 06/10/2024) Immunizations Name Administration Dates Next Due COVID-19, LNP-s, No Preserve , Lloyd-sucrose, Ages 12+ (Pfizer) 03/20/2022 H1N1 2009 Influenza, IM 11/09/2009 Pneumococcal Conjugate Vacci ne, 20-valent ([id number]) 02/04/2023 Pneumococcal Polysaccharide PPV23 (Pneumovax) 01/17/2009 Seasonal [...] How often do you attend samaritan or confucianism serv ices? Never 06/02/2023 Do [...] 0 02/04/2023 [facility] of Occupat ional [facility] - Occupational Stress Questionnaire Answer Date [...] Notes * Telephone Encounter - Seema Rangel [facility] - 06/10/2024 8:51 AM EDTRefused Prescriptions: Disp Refills Levothyroxine Sodium 75 MCG Oral Tablet (L*90 Tab*1 Sig: Take 1Tablet by mouth daily first thing in the morning.Refused By: SEEMA RANGEL for Refusal: Too soon documented in this encounter Plan of Treatment Upcoming Encounters Date Type Department Care Team (Late st Contact Info) Description 11/10/2024 5:00 PM EST Office Visit Family Practice [facility] [address] [place] [address] Ninfa Cruz DO [address] [place] [address] Health Maintenance Due Date Last Done Comments DISCUSS TOBACCO CESSATION (REFER TO SMARTSET #[id number]) 1963 Cologuard 2008 Sigmoidoscopy 2008 Fecal Occult [...] Directives occurred with: Not Discussed Care Teams Process Safety Manager Relationship Specialty Start Date End Date Ninfa Cruz DO [address] [place] [address] PCP - General Family Medicine 02/08/16 documented as of this encounter
--- OUTSIDE RECORDS SUMMARY | 2024-11-18 23:26 | External Medical Summary | Summary of Care ---
Author Name Unknown Organization [facility] Address [address] [facility] [place] [address] Phone [phone] Care Team Providers Care Pastoral Counselor Name Role Phone Ninfa Cruz DO Primary Care Provider Reason for Visit * Reason Onset Date Comments Medication Refill 06/07/2024 Encounter Details Date Type Department Care Team (Late st Contact Info) Description 06/07/2024 Refill Family Practice [facility] [address] [facility] [address] Ninfa Cruz DO [address] [place] [address] Chronic pain syndrome Allergies Active Allergy Reactions [...] as of this encounter (statuses as of 06/08/2024) Medications Medication Sig Dispensed Refills Start Date [...] Capsule 03/01/2024 Active Vitamin D3 1.25 MG (94272 UT) Oral CapsuleIndications: Vitamin D deficiency Take [...] MG/24HR Transdermal Patch 24 Hour (Nicoderm CQ)Indications:Toba digital account coordinator use disorder Place 1 Patch over 24 [...] as of this encounter (statuses as of 06/08/2024) Active Problems Problem Noted Date Diagnosed Date Food insecurity 06/23/2023 Overview: Per [facility] Protocol Severe episode of recurrent major depressive disorder, without psychotic features 06/01/2023 PTSD (post-traumatic stress disorder) 06/01/2023 Cannabis abuse 06/01/2023 Iron deficiency anemia 03/25/2023 Substance abuse 12/31/2022 Overview: UDS + meth 11/23/22 [facility], new onset of paranoia and confusion [...] as of this encounter (statuses as of 06/08/2024) Resolved Problems Problem Noted Date Diagnosed Date [...] as of this encounter (statuses as of 06/08/2024) Immunizations Name Administration Dates Next Due COVID-19, LNP-s, No Preserve , Lloyd-sucrose, Ages 12+ (Pfizer) 03/20/2022 H1N1 2009 Influenza, IM 11/09/2009 Pneumococcal Conjugate Vacci ne, 20-valent ([id number]) 02/04/2023 Pneumococcal Polysaccharide PPV23 (Pneumovax) 01/17/2009 Seasonal [...] How often do you attend jainism or yazidi serv ices? Never 06/02/2023 Do [...] Total Score 0 02/04/2023 [facility] of Occupat ional Health - [...] Telephone Encounter - Tha Rangel RPh - 06/08/2024 9:21 AM EDTRefused Prescriptions: Disp Refills Lyrica 225 MG Oral Capsule 60 Cap*3 Sig: Take 1 Capsule by mouth in the morning and 1 Capsule before bedtime.Refused By: THA RANGEL for Refusal: Too rogelio n documented in this encounter Plan of Treatment Upcoming Encounters Date Type Department Care Team (Late st Contact Info) Description 11/10/2024 5:00 PM EST Office Visit Family Practice [facility] [address] [place] [address] Ninfa Cruz DO [address] [place] [address] Health Maintenance Due Date Last Done Comments DISCUSS TOBACCO CESSATION (REFER TO SMARTSET #[id number]) 1965 Cologuard 2008 Sigmoidoscopy 2008 Fecal Occult [...] Directives occurred with: Not Discussed Care Teams Pastoral Counselor Relationship Specialty Start Date End Date Ninfa Cruz DO [address] [place] [address] PCP - General Family Medicine 02/08/16 documented as of this encounter
--- OUTSIDE RECORDS SUMMARY | 2024-11-18 23:26 | External Medical Summary | Summary of Care ---
Author Name Unknown Organization [facility] Address [address] [facility] [place] [address] Phone [phone] Care Team Providers Care Fleet Sales Manager Name Role Phone Val Persaud DO Primary Care Provider Reason for Visit * Reason Onset Date Comments Medication Refill 06/07/2024 Encounter Details Date Type Department Care Team (Late st Contact Info) Description 06/07/2024 Refill Family Practice [facility] [address] [facility] [place] [address] Val Persaud DO [address] [place] [address] Gastroesophageal reflux disease with esophagitis without hemorrhage [...] 8 hours. 120 Each 1 4 Active Ipratropium-Albuter ol 0.5-2.5 (3) MG/3ML Inhalation Solution (Duoneb)Indications :COPD, moderate (HCC) Inhale 3 mL via nebulizer in the morning and 3 mL at noon and 3 mL in the evening and 3 mL before bedtime. 180 mL 1 4 Active Nicotine Polacrilex 4 MG [...] Capsule 4 Active Vitamin D3 1.25 MG (87161 UT) Oral CapsuleIndications: Vitamin D deficiency Take [...] the skin daily. 30 Patch 4 Active Nicotine 14 MG/24HR Transdermal Patch 24 Hour (Nicoderm CQ)Indications:Toba account leader use disorder Place 1 Patch over 24 hours topically on the skin daily. 28 Patch 4 Active Budesonide-Formoter ol Fumarate 160-4.5 [...] OTHER (STOMACH UPSET). 473 mL 1 4 06/07/20 24 Discontinu ed(Refill) documented as of this encounter (statuses as of 06/08/2024) Active Problems Problem Noted Date Diagnosed Date Food insecurity 06/23/2023 Overview: Per [facility] Protocol Severe episode of recurrent major depressive disorder, without psychotic features 06/01/2023 PTSD (post-traumatic stress disorder) 06/01/2023 Cannabis abuse 06/01/2023 Iron deficiency anemia 03/25/2023 Substance abuse 12/31/2022 Overview: UDS + meth 11/23/22 [facility] [...] IM 11/09/2009 Pneumococcal Conjugate Vacci ne, 20-valent ([id number]) 02/04/2023 Pneumococcal Polysaccharide PPV23 (Pneumovax) 01/17/2009 Seasonal [...] How often do you attend voodoo or lutheran serv ices? Never 06/02/2023 Do you belong [...] [facility] of Occupat ional Health - Occupational Stress [...] Telephone Encounter - Val Persaud DO - 06/08/2024 4:52 PM EDTSigned Prescriptions: Disp Refills Bismuth Subsalicylate 262 MG/15ML Oral Chani*473 mL 1 Sig: Take 30 mL by mouth every 6 hours as needed for Nausea or Other (stomach upset). Authorizing Provider: VAL PERSAUD * Telephone Encounter - Seth Vera [facility] - 06/08/2024 9:39 AM EDTPending Prescriptions: Disp Refills Bismuth Subsalicylate 262 MG/15ML Oral Chani*473 mL 1 Sig: Take 30 mL by mouth every 6 hours as needed for Nausea or Other (stomach upset). * Telephone Encounter - Seth Vera [facility] - 06/08/2024 9:38 AM EDT [facility] is currently not authorized to approve refills for the pended medication(s) per refill protocol. Please approve if appropriate. Thank You, Seth Coppola [facility] Clinical Pharmacist [facility] 06/08/2024, 9:38 AM * Telephone Encounter - Seth Vera [facility] - 06/08/2024 9:36 AM EDT Pending Prescriptions: Disp Refills Bismuth Subsalicylate 262 MG/15ML Oral Valdez*473 mL 1 Last Visit: 06/24/2023 (in office), 04/23/2022 (telemedicine) Next Visit: 11/10/2024 If no future appointments scheduled, and last appointment is greater than a year ago, please schedule patient for a follow-up appointment Last date the medication was ordered: 05/25/24 Pharmacy: [id number] Is this request for a controlled [...] Description 11/10/2024 5:00 PM EST Office Visit [facility] [address] [place] [address] Val Persaud DO [address] [place] [address] Health Maintenance Due Date Last Done Comments DISCUSS TOBACCO CESSATION (REFER TO SMARTSET #[id number]) 1965 Cologuard 2008 Sigmoidoscopy 2008 Fecal Occult [...] Directives occurred with: Not Discussed Care Teams Fleet Sales Manager Relationship Specialty Start Date End Date Val Persaud DO [address] [place] [address] PCP - General Family Medicine 02/08/16 documented as of this encounter
--- OUTSIDE RECORDS SUMMARY | 2024-11-18 23:26 | External Medical Summary | Summary of Care ---
Author Name Unknown Organization [facility] Address [address] [facility] [place] [address] Phone [phone] Care Team Providers Care Bleaching Machine Operator Name Role Phone Ninfa Cruz DO Primary Care Provider [phone] Reason for Visit * Reason Onset Date Comments Medication Refill 06/07/2024 Encounter Details Date Type Department Care Team (Late st Contact Info) Description 06/07/2024 Refill Family Practice [facility] [address] [facility] [address] Ninfa Cruz DO [address] [place] [address] Allergies Active Allergy Reactions Criticality Noted Date [...] Capsule 03/01/2024 Active Vitamin D3 1.25 MG (43617 UT) Oral CapsuleIndications: Vitamin D deficiency Take [...] Transdermal Patch 24 Hour (Nicoderm CQ)Indications:Toba tax accounting manager use disorder Place 1 Patch [...] abuse 12/31/2022 Overview: UDS + meth 11/23/22 [facility] [facility] [...] overnight PSG 2 [facility] Gastroesophageal reflux disease with esophagitis 03/14/2011 HTN, [...] IM 11/09/2009 Pneumococcal Conjugate Vacci ne, 20-valent ([id number]) 02/04/2023 Pneumococcal Polysaccharide PPV23 (Pneumovax) 01/17/2009 Seasonal [...] How often do you attend confucianism or baptism serv ices? Never 06/02/2023 Do you belong [...] Recorded PHQ Adult Total Score 0 02/04/2023 [facility] of Occupat ional [...] Notes * Telephone Encounter - Seema Rangel RPh - 06/08/2024 9:24 AM EDTRefused Prescriptions: Disp Refills Ondansetron 4 MG Oral Tablet Disintegratin*90 Tab*5 Sig: Place 1 Tablet on tongue every 6 hours as needed for Nausea.Refused By: SEEMA RANGEL for Refusal: Duplicate Request documented in this encounter Plan of Treatment Upcoming Encounters Date Type Department Care Team (Late st Contact Info) Description 11/10/2024 5:00 PM EST Office Visit Family Practice [facility] [address] [address] [address] Ninfa Cruz DO [address] [address] Health Maintenance Due Date Last Done Comments DISCUSS TOBACCO CESSATION (REFER TO SMARTSET #[id number]) 1965 Cologuard 2008 Sigmoidoscopy 2008 Fecal Occult [...] Directives occurred with: Not Discussed Care Teams Bleaching Machine Operator Relationship Specialty Start Date End Date Ninfa Cruz DO [address] [place] [address] PCP - General Family Medicine 02/08/16 documented as of this encounter
--- OUTSIDE RECORDS SUMMARY | 2024-11-18 23:26 | External Medical Summary | Summary of Care ---
Author Name Unknown Organization [facility] Address [address] [facility] [place] [address] Phone [phone] Care Team Providers Care Event Decorator And Designer Name Role Phone Ninfa Cruz DO Primary Care Provider Reason for Visit * Reason Onset Date Comments Medication Refill 06/04/2024 Encounter Details Date Type Department Care Team (Late st Contact Info) Description 06/04/2024 Refill Family Practice [facility] [address] [facility] [address] Ninfa Cruz DO [address] [place] [address] Allergies Active Allergy Reactions Criticality Noted Date [...] as of this encounter (statuses as of 06/04/2024) Medications Medication Sig Dispensed Refills Start Date [...] Capsule 03/01/2024 Active Vitamin D3 1.25 MG (15942 UT) Oral CapsuleIndications: Vitamin D deficiency Take [...] Transdermal Patch 24 Hour (Nicoderm CQ)Indications:Toba accounting support specialist use disorder Place 1 Patch over 24 [...] as of this encounter (statuses as of 06/04/2024) Active Problems Problem Noted Date Diagnosed Date Food insecurity 06/23/2023 Overview: Per [facility] Protocol Severe episode of recurrent major depressive disorder, without psychotic features 06/01/2023 PTSD (post-traumatic stress disorder) 06/01/2023 Cannabis abuse 06/01/2023 Iron deficiency anemia 03/25/2023 Substance abuse 12/31/2022 Overview: UDS + meth 11/23/22 [facility] [...] overnight PSG 2 [facility] Gastroesophageal reflux disease with esophagitis 03/14/2011 HTN, goal below 130/80 03/13/2011 Fibromyalgia 04/05/2010 Chronic nausea 04/02/2010 Overview: ICD-10 update of inactive term Intermittent asthma with rel iever use up to twice per week without complication 01/04/2010 ANDRE (generalized anxiety disorder) 10/24/2009 Dyslipidemia 08/24/2009 Overview: Per Lipid Taxonomy. Hypothyroidism 05/12/2009 documented as of this encounter (statuses as of 06/04/2024) Resolved Problems Problem Noted Date Diagnosed Date [...] as of this encounter (statuses as of 06/04/2024) Immunizations Name Administration Dates Next Due COVID-19, LNP-s, No Preserve , Lloyd-sucrose, Ages 12+ (Pfizer) 03/20/2022 H1N1 2009 Influenza, IM 11/09/2009 Pneumococcal Conjugate Vacci ne, 20-valent ([id number]) 02/04/2023 Pneumococcal Polysaccharide PPV23 (Pneumovax) 01/17/2009 Seasonal [...] How often do you attend restoration or sikh serv ices? Never 06/02/2023 Do [...] Recorded PHQ Adult Total Score 0 02/04/2023 [facility]at ional [...] * Telephone Encounter - Anjana Hardin - 06/04/2024 5:26 PM EDTRefused Prescriptions: Disp Refills QUEtiapine Fumarate 25 [...] Practice [facility] [address] [place] [address] Ninfa Cruz DO [address] [place] [address] Health Maintenance Due Date Last Done Comments DISCUSS TOBACCO CESSATION (REFER TO SMARTSET #[id number]) 1963 Cologuard 2008 Sigmoidoscopy 2008 Fecal Occult [...] Directives occurred with: Not Discussed Care Teams Event Decorator And Designer Relationship Specialty Start Date End Date Ninfa Cruz DO [address] [place] [address] PCP - General Family Medicine 02/08/16 documented as of this encounter
--- OUTSIDE RECORDS SUMMARY | 2024-11-18 23:26 | External Medical Summary | Summary of Care ---
Author Name Unknown Organization [facility] Address [address] [place] [place] [address] Phone [phone] Care Team Providers Care Stitch Cleaner Name Role Phone Ninfa Cruz DO Primary Care Provider [phone] Reason for Visit * Reason Comments eRx-Medication Refill Encounter Details Date Type Department Care Team (Late st Contact Info) Description 06/07/[address] 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 120 Each 1 4 Active Ipratropium-Albute rol 0.5-2.5 (3) MG/3ML [...] Capsule 4 Active Vitamin D3 1.25 MG (77905 UT) Oral CapsuleIndications :Vitamin D deficiency Take 1 Capsule by mouth once a week. 12 Capsule 4 024 Active Dexlansoprazole 60 MG Oral Capsule [...] the skin daily. 30 Patch 4 Active Budesonide-Formote rol Fumarate 160-4.5 MCG/ACT Inhalation [...] 1 4 Active Lyrica 225 MG Oral CapsuleIndications :Chronic [...] THE SKIN DAILY 28 Patch 4 Active Nicotine 14 MG/24HR Transdermal Patch 24 Hour (Nicoderm CQ)Indications:Tob acco use disorder Place 1 Patch over 24 hours topically on the skin daily. 28 Patch 4 024 Discontinued documented as of this [...] 2 [facility] [...] IM 11/09/2009 Pneumococcal Conjugate Vacci ne, 20-valent ([id number]) 02/04/2023 Pneumococcal Polysaccharide PPV23 (Pneumovax) 01/17/2009 Seasonal [...] How often do you attend islam or latter day serv ices? Never 06/02/2023 [...] Recorded PHQ Adult Total Score 0 02/04/2023 [facility] - Occupational [...] encounter Miscellaneous Notes * Telephone Encounter - Usha Devine RPh - 06/09/2024 7:00 AM EDTSigned Prescriptions: Disp Refills Nicotine 14 MG/24HR Transdermal Patch 24 H*28 Pat*0 Sig: PLACE 1PATCH OVER 24 HOURS TOPICALLY ON THE SKIN DAILYAuthorizing Provider: CATHIE ASENCIO User: USHA DEVINE documented in this encounter Plan of Treatment Upcoming Encounters Date Type Department Care Team (Late st Contact Info) Description 11/10/2024 5:00 PM EST Office Visit Family Practice [facility] [address] [place] [address] Ninfa Cruz, [address] [place] [address] Health Maintenance Due Date Last Done Comments DISCUSS TOBACCO CESSATION (REFER TO SMARTSET #[id number]) 1965 Cologuard 2008 Sigmoidoscopy 2008 Fecal Occult [...] as of this encounter Visit Diagnoses Diagnosis Tobacco use disorder documented in this encounter Advance Directives * [...] Directives occurred with: Not Discussed Care Teams Stitch Cleaner Relationship Specialty Start Date End Date Ninfa Cruz DO [address] [place] [address] PCP - General Family Medicine 02/08/16 documented as of this encounter
--- OUTSIDE RECORDS SUMMARY | 2024-11-18 23:27 | External Medical Summary | Summary of Care ---
Author Name Unknown Organization [facility] Address [address] [facility] [place] [address] Phone [phone] Care Team Providers Care Geoduck Diver Name Role Phone Ninfa Cruz DO Primary Care Provider [phone] Reason for Visit * Reason Onset Date Comments Medication Refill 05/31/2024 Encounter Details Date Type Department Care Team (Late st Contact Info) Description 05/31/2024 Refill Family Practice [facility] [address] [facility] [address] Ninfa Cruz DO [address] [place] [address] Allergies Active Allergy Reactions Criticality Noted Date [...] as of this encounter (statuses as of 06/01/2024) Medications Medication Sig Dispensed Refills Start Date [...] Capsule 03/01/2024 Active Vitamin D3 1.25 MG (48337 UT) Oral CapsuleIndications: Vitamin D deficiency Take [...] Transdermal Patch 24 Hour (Nicoderm CQ)Indications:Toba tobacco wetter use disorder Place 1 Patch over 24 hours topically on the skin daily. 28 Patch 04/12/2024 Active Loratadine 10 MG Oral Tablet (Claritin)Indicatio ns:Allergic Rhinitis Take 1 Tablet by mouth in the morning. 30 Tablet 5 04/14/2024 Active Budesonide-Formoter ol Fumarate 160-4.5 MCG/ACT Inhalation [...] or chew. 90 Capsule 1 05/06/2024 Active QUEtiapine Fumarate 25 MG Oral Tablet (SEROquel)Indicatio ns:Anxiety Take 1 Tablet by mouth every 8 hours as needed for Anxiety. 30 Tablet 05/10/2024 Active Lyrica 225 MG Oral CapsuleIndications: Chronic [...] the morning. 90 Tablet 1 05/29/2024 Active documented as of this encounter (statuses as of 06/01/2024) Active Problems Problem Noted Date Diagnosed Date Food insecurity 06/23/2023 Overview: Per [facility] Protocol Severe episode of recurrent major depressive disorder, without psychotic features 06/01/2023 PTSD (post-traumatic stress disorder) 06/01/2023 Cannabis abuse 06/01/2023 Iron deficiency anemia 03/25/2023 Substance abuse 12/31/2022 Overview: UDS + meth 11/23/22 [facility], new onset of paranoia and confusion [...] PSG 2 [facility] Gastroesophageal reflux disease with esophagitis 03/14/2011 HTN, goal below 130/80 03/13/2011 Fibromyalgia 04/05/2010 Chronic nausea 04/02/2010 Overview: ICD-10 update of inactive term Intermittent asthma with rel iever use up to twice per week without complication 01/04/2010 ANDRE (generalized anxiety disorder) 10/24/2009 Dyslipidemia 08/24/2009 Overview: Per Lipid Taxonomy. Hypothyroidism 05/12/2009 documented as of this encounter (statuses as of 06/01/2024) Resolved Problems Problem Noted Date Diagnosed Date [...] as of this encounter (statuses as of 06/01/2024) Immunizations Name Administration Dates Next Due COVID-19, LNP-s, No Preserve , Lloyd-sucrose, Ages 12+ (Pfizer) 03/20/2022 H1N1 2009 Influenza, IM 11/09/2009 Pneumococcal Conjugate Vacci ne, 20-valent ([id number]) 02/04/2023 Pneumococcal Polysaccharide PPV23 (Pneumovax) 01/17/2009 Seasonal [...] Never 06/02/2023 How often do you attend hoahaoism or mandaeism serv ices? Never 06/02/2023 Do you belong to any clubs o r organizations such as hoahaoism groups, unions, fraternal or athletic groups, or [...] Recorded PHQ Adult Total Score 0 02/04/2023 [facility] - Occupational [...] Telephone Encounter - Beverley Zambrano RPh - 06/01/2024 2:00 PM EDT Refused Prescriptions: Disp Refills Levothyroxine Sodium 75 MCG Oral Tablet (L*90 Tab*1 Sig: Take 1Tablet by mouth daily first thing in the morning.Refused By: BEVERLEY ZAMBRANO for Refusal: Too soon Electronically signed by Beverley Zambrano [facility] at 06/01/2024 2:00 PM EDT documented in this encounter Plan of Treatment Upcoming Encounters Date Type Department Care Team (Late st Contact Info) Description 11/10/2024 5:00 PM EST Office Visit Family Practice [facility] [address] [place] [address] Ninfa Cruz DO [address] [place] [address] Health Maintenance Due Date Last Done Comments DISCUSS TOBACCO CESSATION (REFER TO SMARTSET #[id number]) 1965 Cologuard 2008 Sigmoidoscopy 2008 Fecal Occult [...] Directives occurred with: Not Discussed Care Teams Geoduck Diver Relationship Specialty Start Date End Date Ninfa Cruz DO [address] [place] [address] PCP - General Family Medicine 02/08/16 documented as of this encounter
--- OUTSIDE RECORDS SUMMARY | 2024-11-18 23:27 | External Medical Summary | Summary of Care ---
Author Name Unknown Organization [facility] Address [address] [facility] [place] [address] Phone [phone] Care Team Providers Care Puff Ironer Name Role Phone Ninfa Cruz DO Primary Care Provider Reason for Visit * Reason Onset Date Comments Medication Refill 05/28/2024 Encounter Details Date Type Department Care Team (Late st Contact Info) Description 05/28/2024 Refill Family Practice [facility] [address] [facility] [address] Ninfa Cruz DO [address] [place] [address] Gastroesophageal reflux disease with esophagitis without hemorrhage [...] as of this encounter (statuses as of 05/31/2024) Medications Medication Sig Dispensed Refills Start Date [...] Capsule 03/01/2024 Active Vitamin D3 1.25 MG (76591 UT) Oral CapsuleIndications: Vitamin D deficiency Take [...] Transdermal Patch 24 Hour (Nicoderm CQ)Indications:Toba tobacco stemmer use disorder Place 1 Patch over 24 [...] as of this encounter (statuses as of 05/31/2024) Active Problems Problem Noted Date Diagnosed Date Food insecurity 06/23/2023 Overview: Per [facility] Protocol Severe episode of recurrent major depressive disorder, without psychotic features 06/01/2023 PTSD (post-traumatic stress disorder) 06/01/2023 Cannabis abuse 06/01/2023 Iron deficiency anemia 03/25/2023 Substance abuse 12/31/2022 Overview: UDS + meth 11/23/22 [facility] [...] as of this encounter (statuses as of 05/31/2024) Resolved Problems Problem Noted Date Diagnosed Date [...] as of this encounter (statuses as of 05/31/2024) Immunizations Name Administration Dates Next Due COVID-19, LNP-s, No Preserve , Lloyd-sucrose, Ages 12+ (Pfizer) 03/20/2022 H1N1 2009 Influenza, IM 11/09/2009 Pneumococcal Conjugate Vacci ne, 20-valent ([id number]) 02/04/2023 Pneumococcal Polysaccharide PPV23 (Pneumovax) 01/17/2009 Seasonal [...] Never 06/02/2023 How often do you attend uatsdin or mormon serv ices? Never 06/02/2023 Do you belong to any clubs o r organizations such as uatsdin groups, unions, fraternal or athletic groups, or [...] Recorded PHQ Adult Total Score 0 02/04/2023 [facility] - Occupational Stress Questionnaire Answer Date [...] Telephone Encounter - Michelle Ayala RPh - 05/31/2024 10:13 AM EDT Refused Prescriptions: Disp Refills Bismuth Subsalicylate 262 MG/15ML Oral Chani*473 mL 1 Refused By:MICHELLE AYALAeason for Refusal: Too soon documented in this encounter Plan of Treatment Upcoming Encounters Date Type Department Care Team (Late st Contact Info) Description 11/10/2024 5:00 PM EST Office Visit Family Practice [facility] [address] [place] [address] Ninfa Cruz DO [address] [place] [address] Health Maintenance Due Date Last Done Comments [...] Directives occurred with: Not Discussed Care Teams Puff Ironer Relationship Specialty Start Date End Date Ninfa Cruz DO [address] [place] [address] PCP - General Family Medicine 02/08/16 documented as of this encounter
--- OUTSIDE RECORDS SUMMARY | 2024-11-18 23:27 | External Medical Summary | Summary of Care ---
Author Name Unknown Organization [facility] Address [address] [facility] [place] [address] Phone [phone] Care Team Providers Care Landscape And Yardwork Laborer Name Role Phone Ninfa Cruz DO Primary Care Provider Reason for Visit * Reason Onset Date Comments Medication Refill 05/30/2024 Encounter Details Date Type Department Care Team (Late st Contact Info) Description 05/30/2024 Refill Family Practice [facility] [address] [facility] [place] [address] Ninfa Cruz DO [address] [place] [address] Gastroesophageal reflux disease with esophagitis without hemorrhage [...] as of this encounter (statuses as of 05/30/2024) Medications Medication Sig Dispensed Refills Start Date [...] Capsule 03/01/2024 Active Vitamin D3 1.25 MG (43411 UT) Oral CapsuleIndications: Vitamin D deficiency Take [...] MG/24HR Transdermal Patch 24 Hour (Nicoderm CQ)Indications: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 Place 1 Patch [...] as of this encounter (statuses as of 05/30/2024) Active Problems Problem Noted Date Diagnosed Date Food insecurity 06/23/2023 Overview: Per [facility] Protocol Severe episode of recurrent major depressive disorder, without psychotic features 06/01/2023 PTSD (post-traumatic stress disorder) 06/01/2023 Cannabis abuse 06/01/2023 Iron deficiency anemia 03/25/2023 Substance abuse 12/31/2022 Overview: UDS + meth 11/23/22 [facility], new onset of paranoia and [...] noted on overnight PSG 2 [facility] Gastroesophageal reflux disease with esophagitis 03/14/2011 HTN, goal below 130/80 03/13/2011 Fibromyalgia 04/05/2010 Chronic nausea 04/02/2010 Overview: ICD-10 update of inactive term Intermittent asthma with rel iever use up to twice per week without complication 01/04/2010 ANDRE (generalized anxiety disorder) 10/24/2009 Dyslipidemia 08/24/2009 Overview: Per Lipid Taxonomy. Hypothyroidism 05/12/2009 documented as of this encounter (statuses as of 05/30/2024) Resolved Problems Problem Noted Date Diagnosed Date [...] as of this encounter (statuses as of 05/30/2024) Immunizations Name Administration Dates Next Due COVID-19, LNP-s, No Preserve , Lloyd-sucrose, Ages 12+ (Pfizer) 03/20/2022 H1N1 2009 Influenza, IM 11/09/2009 Pneumococcal Conjugate Vacci ne, 20-valent ([id number]) 02/04/2023 Pneumococcal Polysaccharide PPV23 (Pneumovax) 01/17/2009 Seasonal [...] Never 06/02/2023 How often do you attend jewish or oriental orthodox serv ices? Never 06/02/2023 Do you belong to any clubs o r organizations such as jewish groups, unions, fraternal or athletic groups, or [...] Recorded PHQ Adult Total Score 0 02/04/2023 [facility] Occupat ional [facility] - Occupational Stress Questionnaire Answer Date Recorded [...] * Telephone Encounter - Anjana Hardin - 05/30/2024 8:11 PM EDTRefused Prescriptions: Disp Refills Bismuth Subsalicylate 262 MG/15ML Oral Chani*473 mL 1 Refused By:CARMELO HARDINeason for Refusal: Duplicate Request documented in this encounter Plan of Treatment Upcoming Encounters Date Type Department Care Team (Late st Contact Info) Description 11/10/2024 5:00 PM EST Office Visit Family Practice [facility] [address] [address] [address] Ninfa Cruz DO [address] [place] [address] Health Maintenance Due Date Last Done Comments DISCUSS TOBACCO CESSATION (REFER TO SMARTSET #9111) 1965 Cologuard 2008 Sigmoidoscopy 2008 Fecal Occult [...] Directives occurred with: Not Discussed Care Teams Landscape And Yardwork Laborer Relationship Specialty Start Date End Date Ninfa Cruz DO [address] [place] [address] PCP - General Family Medicine 02/08/16 documented as of this encounter
--- OUTSIDE RECORDS SUMMARY | 2024-11-18 23:27 | External Medical Summary | Summary of Care ---
Author Name Unknown Organization [facility] Address [address] [facility] [place] [address] Phone [phone] Care Team Providers Care Director Of Staff Development Name Role Phone Val Persaud DO Primary Care Provider [phone] Reason for Referral * Medication Prior Authorization - Closed Specialty Diagnoses / Procedures Referred By Contchen t Referred To Contact Diagnoses Seasonal allergies Val Persaud DO [address] [place] [address] Referral ID Status Reason Start Date Expiration Date Visits Re quested Visits Authorized [id number] Closed [phone] Reason for Visit * Reason Onset Date Comments Medication Refill 06/02/2024 Encounter Details Date Type Department Care Team (Late st Contact Info) Description 06/02/2024 Refill Family Practice [facility] [address] [place] [address] Val Persaud DO [address] [place] [address] Seasonal allergies* Allergies Active Allergy Reactions Criticality Noted Date [...] as of this encounter (statuses as of 06/02/2024) Medications Medication Sig Dispensed Refills Start Date [...] Active Benzonatate 100 MG Oral Capsule (Tessalmalu Perlmarifer)Indications: Suspected COVID-19 virus infection,Dry cough Take 1 Capsule by mouth 3 times a day as needed for Cough. Do not cut, crush, or chew. 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 90 Capsule 1 4 Active QUEtiapine Fumarate 25 MG Oral Tablet (SEROquel)Indicatio ns:Anxiety Take 1 Tablet by mouth every 8 hours as needed for Anxiety. 30 Tablet 4 Active Lyrica 225 MG Oral CapsuleIndications: [...] the morning. 90 Capsule 1 4 Active [facility] Stomach Relief 525 MG/30ML Oral Suspension (Bismuth Subsalicylate)Indic ations:Gastroesopha geal reflux disease with esophagitis without hemorrhage TAKE 30 ML BY MOUTH EVERY 6 HOURS NEEDED FOR NAUSEA OR OTHER (STOMACH UPSET). 473 mL 1 4 Active Dicyclomine HCl 10 MG [...] the morning. 30 Tablet 5 4 Active Loratadine 10 MG Oral Tablet (Claritin)Indicatio ns:Allergic Rhinitis Take 1 Tablet by mouth in the morning. 30 Tablet 5 4 06/02/20 24 Discontinu ed(Refill) documented as of this encounter (statuses as of 06/02/2024) Active Problems Problem Noted Date Diagnosed Date Food insecurity 06/23/2023 Overview: Per [facility] Protocol Severe episode of recurrent major depressive disorder, without psychotic features 06/01/2023 PTSD (post-traumatic stress disorder) 06/01/2023 Cannabis abuse 06/01/2023 Iron deficiency anemia 03/25/2023 Substance abuse 12/31/2022 Overview: UDS + meth 11/23/22 [facility], new onset of paranoia and confusion [...] overnight PSG 2 [facility] Gastroesophageal reflux disease with esophagitis 03/14/2011 HTN, goal below 130/80 03/13/2011 Fibromyalgia 04/05/2010 Chronic nausea 04/02/2010 Overview: ICD-10 update of inactive term Intermittent asthma with rel iever use up to twice per week without complication 01/04/2010 ANDRE (generalized anxiety disorder) 10/24/2009 Dyslipidemia 08/24/2009 Overview: Per Lipid Taxonomy. Hypothyroidism 05/12/2009 documented as of this encounter (statuses as of 06/02/2024) Resolved Problems Problem Noted Date Diagnosed Date [...] flushing 01/23/2012 7 Chest pain, non-cardiac 11/01/2011 0504/2017 Diarrhea 04/12/2011 02/09/2017 History of tobacco use [...] as of this encounter (statuses as of 06/02/2024) Immunizations Name Administration Dates Next Due COVID-19, LNP-s, No Preserve , Lloyd-sucrose, Ages 12+ (Pfizer) 03/20/2022 H1N1 2008 Influenza, IM 11/09/2009 Pneumococcal Conjugate Vacci ne, 20-valent ([id number]) 02/04/2023 Pneumococcal Polysaccharide PPV23 (Pneumovax) 01/17/2009 Seasonal [...] How often do you attend advent or congregation serv ices? Never 06/02/2023 Do [...] Telephone Encounter - Val Persaud DO - 06/02/2024 4:10 PM EDTSigned Prescriptions: Disp Refills Loratadine 10 MG Oral Tablet (Claritin) 30 Tab*5 Sig: Take 1 Tablet by mouth in the morning. Authorizing Provider: VAL PERSAUD * Telephone Encounter - Adriana Fenton LPN - 06/02/2024 2:43 PM EDTPending Prescriptions: Disp Refills Loratadine 10 MG Oral Tablet (Claritin) 30 Tab*5 Sig: Take 1 Tablet by mouth in the morning. * Telephone Encounter - Anju Edmonds OSA - 06/02/2024 1:44 PM EDT Did you pend patient's preferred pharmacy and medication before forwarding?yes Pharmacy: No prescriptions requested or ordered in this encounter Last Visit: 06/24/2023 (in office), 04/23/2022 (telemedicine) Next Visit: 11/10/2024 If no future appointments scheduled, and last appointment is greater than a year ago, please schedule patient for a follow-up appointment Last date the medication was ordered: [id number] Is this request for a controlled substance?No [...] found in Results Review. Patient Phone Numbers [facility] [phone] Labs: Lab Results Component Value Date/Time CREAT [...] 12:29 PM HGBA1C 5.4 12/20/2019 01:23 PM Did you pend patient's preferred pharmacy and medication before forwarding?yes Pharmacy: No prescriptions requested or ordered in this encounter Last Visit: 06/24/2023 (in office), 04/23/2022 (telemedicine) Next Visit: 11/10/2024 If no future appointments scheduled, and last appointment is greater than a year ago, please schedule patient for a follow-up appointment Last date the medication was ordered: [id number] Is this request for a controlled substance?No [...] 5:00 PM EST Office Visit Family Practice [facility] [address] [place] [address] Val Persaud DO [address] [place] [address] Health Maintenance Due Date Last Done Comments DISCUSS TOBACCO CESSATION (REFER TO SMARTSET #7559) 1965 Cologuard 2008 Sigmoidoscopy 2008 Fecal Occult [...] of this encounter Visit Diagnoses Diagnosis Seasonal allergies- Primary Allergic rhinitis, cause unspecified documented in this [...] occurred with: Not Discussed Care Teams Director Of Staff Development Relationship Specialty Start Date End Date Val Persaud DO [address] [place] [address] PCP - General Family Medicine 02/08/16 documented as of this encounter
--- OUTSIDE RECORDS SUMMARY | 2024-11-18 23:27 | External Medical Summary | Summary of Care ---
Author Name Unknown Organization [facility] Address [address] [facility] [place] [address] Phone [phone] Care Team Providers Care Maintenance Mechanic Helper Name Role Phone Ninfa Cruz DO Primary Care Provider [phone] Reason for Visit * Reason Onset Date Comments Medication Refill 05/29/2024 Encounter Details Date Type Department Care Team (Late st Contact Info) Description 05/29/2024 Refill Family Practice [facility] [address] [facility] [address] Ninfa Cruz DO [address] [place] [address] Allergies Active Allergy Reactions Criticality Noted Date [...] as of this encounter (statuses as of 05/29/2024) Medications Medication Sig Dispensed Refills Start Date [...] Capsule 03/01/2024 Active Vitamin D3 1.25 MG (36188 UT) Oral CapsuleIndications: Vitamin D deficiency Take [...] (Nicoderm CQ)Indications: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 Hypothyroidism 05/12/2009 documented as of this encounter (statuses as of 05/29/2024) Resolved Problems Problem Noted Date Diagnosed Date [...] as of this encounter (statuses as of 05/29/2024) Immunizations Name Administration Dates Next Due COVID-19, LNP-s, No Preserve , Lloyd-sucrose, Ages 12+ (Pfizer) 03/20/2022 H1N1 2009 Influenza, IM 11/09/2009 Pneumococcal Conjugate Vacci ne, 20-valent ([id number]) 02/04/2023 Pneumococcal Polysaccharide PPV23 (Pneumovax) 01/17/2009 Seasonal [...] How often do you attend mosque or adventist serv ices? Never 06/02/2023 Do [...] PHQ Adult Total Score 0 02/04/2023 [facility] of Occupat ional Health [...] * Telephone Encounter - Anjana Hardin - 05/29/2024 4:30 PM EDTRefused Prescriptions: Disp Refills Levothyroxine Sodium 75 MCG Oral Tablet (L*90 Tab*1 Sig: Take 1Tablet by mouth daily first thing in the morning.Refused By: CARMELO HARDINeason for Refusal: Duplicate Request documented in this encounter Plan of Treatment Upcoming Encounters Date Type Department Care Team (Late st Contact Info) Description 11/10/2024 5:00 PM EST Office Visit Family Practice [facility] [address] [place] [address] Ninfa Cruz DO [address] [place] [address] Health Maintenance Due Date Last Done Comments DISCUSS TOBACCO CESSATION (REFER TO SMARTSET #[id number]) 1963 Cologuard 2008 Sigmoidoscopy 2008 Fecal Occult [...] Directives occurred with: Not Discussed Care Teams Maintenance Mechanic Helper Relationship Specialty Start Date End Date Ninfa Cruz DO [address] [place] [address] PCP - General Family Medicine 02/08/16 documented as of this encounter
--- OUTSIDE RECORDS SUMMARY | 2024-11-18 23:27 | External Medical Summary | Summary of Care ---
Author Name Unknown Organization [facility] Address [address] [facility] [place] [address] Phone [phone] Care Team Providers Care Redevelopment Specialist Name Role Phone Ninfa Cruz DO Primary Care Provider Reason for Visit * Reason Onset Date Comments Medication Refill 05/28/2024 Encounter Details Date Type Department Care Team (Late st Contact Info) Description 05/28/2024 Refill Family Practice [facility] [address] [facility] [place] [address] Ninfa Cruz DO [address] [place] [address] Allergies Active Allergy Reactions Criticality Noted Date [...] Capsule 03/01/2024 Active Vitamin D3 1.25 MG (32563 UT) Oral CapsuleIndications: Vitamin D deficiency Take [...] MG/24HR Transdermal Patch 24 Hour (Nicoderm CQ)Indications:Toba cco & president use disorder Place 1 Patch over 24 [...] abuse 12/31/2022 Overview: UDS + meth 11/23/22 [facility], new onset of paranoia and [...] overnight PSG 2 [facility] Gastroesophageal reflux [...] IM 11/09/2009 Pneumococcal Conjugate Vacci ne, 20-valent ([id number]) 02/04/2023 Pneumococcal Polysaccharide PPV23 (Pneumovax) 01/17/2009 Seasonal [...] How often do you attend mandaen or scientology serv ices? Never 06/02/2023 Do [...] Telephone Encounter - Seema Rangel RPh - 05/31/2024 9:26 AM EDTRefused Prescriptions: Disp Refills Ondansetron 4 MG Oral Tablet Disintegratin*90 Tab*5 Sig: Place 1 Tablet on tongue every 6 hours as needed for Nausea.Refused By: SEEMA RANGEL for Refusal: Too soon documented in this encounter Plan of Treatment Upcoming Encounters Date Type Department Care Team (Late st Contact Info) Description 11/10/2024 5:00 PM EST Office Visit Family Practice [facility] [address] [place] [address] Ninfa Cruz DO [address] [place] [address] Health Maintenance Due Date Last Done Comments DISCUSS TOBACCO CESSATION (REFER TO SMARTSET #[id number]) 1965 Cologuard 2008 Sigmoidoscopy 2008 Fecal Occult [...] Directives occurred with: Not Discussed Care Teams Redevelopment Specialist Relationship Specialty Start Date End Date Ninfa Cruz DO [address] [place] [address] PCP - General Family Medicine 02/08/16 documented as of this encounter
--- OUTSIDE RECORDS SUMMARY | 2024-11-18 23:27 | External Medical Summary | Summary of Care ---
Author Name Unknown Organization [facility] Address [address] [facility] [place] [address] Phone [phone] Care Team Providers Care Captain Fire Prevention Bureau Name Role Phone Val Persaud DO Primary Care Provider Reason for Visit * Reason Onset Date Comments Medication Refill 06/02/2024 Encounter Details Date Type Department Care Team (Late st Contact Info) Description 06/02/2024 Refill Family Practice [facility] [address] [facility] [place] [address] Val Persaud DO [address] [place] [address] Allergies Active Allergy Reactions Criticality Noted Date [...] Capsule 4 Active Vitamin D3 1.25 MG (45551 UT) Oral CapsuleIndications: Vitamin D deficiency Take [...] Transdermal Patch 24 Hour (Nicoderm CQ)Indications:Toba tobacco dipper use disorder Place 1 Patch over 24 [...] needed for Anxiety. 30 Tablet 4 Active QUEtiapine Fumarate 25 MG Oral Tablet (SEROquel)Indicatio ns:Anxiety Take 1 Tablet by mouth every 8 hours as needed for Anxiety. 30 Tablet 4 06/02/20 24 Discontinu ed(Refill) documented as [...] overnight PSG 2 [facility] Gastroesophageal [...] IM 11/09/2009 Pneumococcal Conjugate Vacci ne, 20-valent ([id number]) 02/04/2023 Pneumococcal Polysaccharide PPV23 (Pneumovax) 01/17/2009 Seasonal [...] often do you attend oriental orthodox or jehovah's witness serv ices? Never 06/02/2023 [...] [facility] of Occupat ional [facility] - Occupational Stress Questionnaire Answer Date [...] Telephone Encounter - Val Persaud DO - 06/03/2024 2:47 PM EDTSigned Prescriptions: Disp Refills QUEtiapine Fumarate 25 MG Oral Tablet (SER*30 Tab*0 Sig: Take 1 Tablet by mouth every 8 hours as needed for Anxiety. Authorizing Provider: VAL PERSAUD * Telephone Encounter - Nicole Almanza LPN - 06/03/2024 7:21 AM EDTPending Prescriptions: Disp Refills QUEtiapine Fumarate 25 MG Oral Tablet (SER*30 Tab*0 Sig: Take 1 Tablet by mouth every 8 hours as needed for Anxiety. * Telephone Encounter - Nicole Almanza LPN - 06/03/2024 7:20 AM EDT Did you pend patient's preferred pharmacy and medication before forwarding?yes Pharmacy: [id number] Pending Prescriptions: Disp Refills QUEtiapine Fumarate 25 MG Oral Tablet (SE*30 Tab*0 Sig: Take 1 Tablet by mouth every 8 hours as needed for Anxiety. Last Visit: 06/24/2023 (in office), 04/23/2022 (telemedicine) Next Visit: 11/10/2024 If no future appointments scheduled, and last appointment is greater than a year ago, please schedule patient for a follow-up appointment Last date the medication was ordered: 05/10/24 Is this request for a controlled substance?No [...] * Telephone Encounter - Anjana Hardin - 06/03/2024 6:10 AM EDTPending Prescriptions: Disp Refills QUEtiapine Fumarate 25 MG Oral Tablet (SER*30 Tab*0 Sig: Take 1Tablet by mouth every 8 hours as needed for Anxiety. documented in this encounter Plan of Treatment Upcoming Encounters Date Type Department Care Team (Late st Contact Info) Description 11/10/2024 5:00 PM EST Office Visit Family Practice [facility] [address] [place] [address] Val Persaud, [address] [place] [address] Health Maintenance Due Date Last Done Comments DISCUSS TOBACCO CESSATION (REFER TO SMARTSET #[id number]) 1965 Cologuard 2008 Sigmoidoscopy 2008 Fecal Occult [...] Directives occurred with: Not Discussed Care Teams Captain Fire Prevention Bureau Relationship Specialty Start Date End Date Val Persaud DO [address] [place] [address] PCP - General Family Medicine 02/08/16 documented as of this encounter
--- OUTSIDE RECORDS SUMMARY | 2024-11-18 23:27 | External Medical Summary | Summary of Care ---
Author Name Unknown Organization [facility] Address [address] [facility] [place] [address] Phone [phone] Care Team Providers Care Dynamite Packing Machine Feeder Name Role Phone Ninfa Cruz DO Primary Care Provider Reason for Visit * Reason Onset Date Comments Medication Refill 06/02/2024 Encounter Details Date Type Department Care Team (Late st Contact Info) Description 06/02/2024 Refill Family Practice [facility] [address] [facility] [place] [address] Ninfa Cruz DO [address] [place] [address] Allergies Active Allergy Reactions Criticality Noted Date [...] Capsule 03/01/2024 Active Vitamin D3 1.25 MG (13673 UT) Oral CapsuleIndications: Vitamin D deficiency Take [...] Transdermal Patch 24 Hour (Nicoderm CQ)Indications: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 Never 06/02/2023 Do you belong to any clubs o r organizations such as orthodoxy groups, unions, fraternal or athletic groups, or [...] encounter Miscellaneous Notes * Telephone Encounter - eJn Greer RPh - 06/03/2024 8:55 PM EDT Refused Prescriptions: Disp Refills Levothyroxine Sodium 75 MCG Oral Tablet (L*90 Tab*1 Sig: Take 1Tablet by mouth daily first thing in the morning.Refused By: JEN GREER for Refusal:Too soon Electronically signed by Jen Greer [facility] located [facility] at 06/03/2024 8:55 PM EDT documented in this encounter Plan of Treatment Upcoming Encounters Date Type Department Care Team (Late st Contact Info) Description 11/10/2024 5:00 PM EST Office Visit Family Practice [facility] [address] [place] [address] Ninfa Cruz DO [address] [place] [address] Health Maintenance Due Date Last Done Comments DISCUSS TOBACCO CESSATION (REFER TO SMARTSET #[id number]) 1965 Cologuard 2008 Sigmoidoscopy 2008 Fecal Occult [...] Directives occurred with: Not Discussed Care Teams Dynamite Packing Machine Feeder Relationship Specialty Start Date End Date Ninfa Cruz DO [address] [place] [address] PCP - General Family Medicine 02/08/16 documented as of this encounter
--- OUTSIDE RECORDS SUMMARY | 2024-11-18 23:28 | External Medical Summary | Summary of Care ---
Author Name Unknown Organization [facility] Address [address] [facility] [place] [address] Phone [phone] Care Team Providers Care Call Or Contact Centre Coach Name Role Phone Ninfa Cruz DO Primary Care Provider [phone] Encounter Details Date Type Department Care Team (Late st Contact Info) Description 05/27/2024 Orders Only PATIENT PORTAL DO NOT DELETE [...] as of this encounter (statuses as of 05/27/2024) Medications Medication Sig Dispensed Refills Start Date [...] Active Benzonatate 100 MG Oral Capsule (Tessalon Perlmarifer)Indications: Suspected COVID-19 virus infection,Dry cough Take 1 Capsule by mouth 3 times a day as needed for Cough. Do not cut, crush, or chew. 30 Capsule 03/01/2024 Active Vitamin D3 1.25 MG (33996 UT) Oral CapsuleIndications: Vitamin D deficiency Take [...] Transdermal Patch 24 Hour (Nicoderm CQ)Indications:Toba senior accountant analyst use disorder Place 1 Patch over 24 [...] needed for Anxiety. 30 Tablet 05/10/2024 Active Levothyroxine Sodium 75 MCG Oral Tablet (Levoxyl)Indication s:Hypothyroidism Take 1 Tablet by mouth daily first thing in the morning. 90 Tablet 1 05/12/2024 Active Lyrica 225 MG Oral CapsuleIndications: Chronic [...] Other (abdominal pain). 120 Capsule 05/26/2024 Active documented as of this encounter (statuses as of 05/27/2024) Active Problems Problem Noted Date Diagnosed Date Food insecurity 06/23/2023 Overview: Per [facility] Protocol Severe episode of recurrent major depressive disorder, without psychotic features 06/01/2023 PTSD (post-traumatic stress disorder) 06/01/2023 Cannabis abuse 06/01/2023 Iron deficiency anemia 03/25/2023 Substance abuse 12/31/2022 Overview: UDS + meth 11/23/22 [facility], new onset of paranoia and confusion [...] as of this encounter (statuses as of 05/27/2024) Resolved Problems Problem Noted Date Diagnosed Date [...] as of this encounter (statuses as of 05/27/2024) Immunizations Name Administration Dates Next Due COVID-19, LNP-s, No Preserve , Lloyd-sucrose, Ages 12+ (Pfizer) 03/20/2022 H1N1 2009 Influenza, IM 11/09/2009 Pneumococcal Conjugate Vacci ne, 20-valent ([id number]) 02/04/2023 Pneumococcal Polysaccharide PPV23 (Pneumovax) 01/17/2009 Seasonal [...] Never 06/02/2023 How often do you attend scientologist or gnosticist serv ices? Never 06/02/2023 Do you belong to any clubs o r organizations such as scientologist groups, unions, fraternal or athletic groups, or [...] 11/10/2024 5:00 PM EST Office Visit Family [facility] [address] [place] [address] Ninfa Cruz DO [address] [place] [address] Health Maintenance Due Date Last Done Comments DISCUSS TOBACCO CESSATION (REFER TO SMARTSET #[id number]) 1965 Cologuard 2008 Sigmoidoscopy 2008 Fecal Occult [...] Directives occurred with: Not Discussed Care Teams Call Or Contact Centre Coach Relationship Specialty Start Date End Date Ninfa Cruz DO [address] [place] [address] PCP - General Family Medicine 02/08/16 documented as of this encounter
--- OUTSIDE RECORDS SUMMARY | 2024-11-18 23:28 | External Medical Summary | Summary of Care ---
Author Name Unknown Organization [facility] Address [address] [facility] [place] [address] Phone [phone] Care Team Providers Care Sales Incentive Analyst Name Role Phone Val Persaud DO Primary Care Provider [phone] Reason for Visit * Reason Onset Date Comments Medication Refill 05/28/2024 Encounter Details Date Type Department Care Team (Late st Contact Info) Description 05/28/2024 Refill Family Practice [facility] [address] [facility] [place] [address] Val Persaud DO [address] [place] [address] Allergies Active Allergy Reactions Criticality Noted Date [...] Capsule 4 Active Vitamin D3 1.25 MG (58752 UT) Oral CapsuleIndications: Vitamin D deficiency Take [...] MG/24HR Transdermal Patch 24 Hour (Nicoderm CQ)Indications:Toba certified public accountant use disorder Place 1 Patch over 24 hours topically on the skin daily. 28 Patch 4 Active Loratadine 10 MG Oral Tablet (Claritin)Indicatio ns:Allergic Rhinitis Take 1 Tablet by mouth in the morning. 30 Tablet 5 4 Active Budesonide-Formoter ol Fumarate 160-4.5 MCG/ACT [...] the morning. 90 Tablet 1 4 Active Levothyroxine Sodium 75 MCG Oral Tablet (Levoxyl)Indication s:Hypothyroidism Take 1 Tablet by mouth daily first thing in the morning. 90 Tablet 1 4 05/28/20 24 Discontinu ed(Refill) documented as of this encounter (statuses as of 05/29/2024) Active Problems Problem Noted Date Diagnosed Date Food insecurity 06/23/2023 Overview: Per [facility] Protocol Severe episode of recurrent major depressive disorder, without psychotic features 06/01/2023 PTSD (post-traumatic stress disorder) 06/01/2023 Cannabis abuse 06/01/2023 Iron deficiency anemia 03/25/2023 Substance abuse 12/31/2022 Overview: UDS + meth 11/23/22 [facility], new onset of paranoia and [...] overnight PSG 2 [facility] [...] IM 11/09/2009 Pneumococcal Conjugate Vacci ne, 20-valent ([id number]) 02/04/2023 Pneumococcal Polysaccharide PPV23 (Pneumovax) 01/17/2009 Seasonal [...] How often do you attend episcopalian or alevism serv ices? Never 06/02/2023 Do [...] [facility] of Occupat ional [facility] - Occupational Stress Questionnaire Answer [...] place to sleep or slept in a alf (including now)? Yes 06/02/2023 Childcare Answer Date [...] Miscellaneous Notes * Telephone Encounter - Leonardo Bower [facility] - 05/29/2024 7:22 AM EDTSigned Prescriptions: Disp Refills Levothyroxine Sodium 75 MCG Oral Tablet (L*90 Tab*1 Sig: Take 1Tablet by mouth daily first thing in the morning.Authorizing Provider: VAL PERSAUD User: LEONARDO BOWER * Telephone Encounter - Leonardo Bower [facility] - 05/29/2024 7:15 AM EDT Reorder of l-thyroxine with multiple requests for refills. Rx sent in on 05/12/24 for 90 + 1. Will resend sent pt message to have TSH retested last from 06/04/23 Leonardo Bower [facility] Clinical Pharmacist Telepharmacy [phone] 05/29/2024 7:16 AM documented in this encounter Plan of Treatment Upcoming Encounters Date Type Department Care Team (Late st Contact Info) Description 11/10/2024 5:00 PM EST Office Visit Family Practice [facility] [address] [place] [address] Val Persaud DO [address] [place] [address] Health Maintenance Due Date Last Done Comments DISCUSS TOBACCO CESSATION (REFER TO SMARTSET #0115) 1965 Cologuard 2008 Sigmoidoscopy 2008 Fecal Occult [...] Directives occurred with: Not Discussed Care Teams Sales Incentive Analyst Relationship Specialty Start Date End Date Val Persaud DO [address] [place] [address] PCP - General Family Medicine 02/08/16 documented as of this encounter
--- OUTSIDE RECORDS SUMMARY | 2024-11-18 23:28 | External Medical Summary | Summary of Care ---
Author Name Unknown Organization [facility] Address [address] [facility] [place] [address] Phone [phone] Care Team Providers Care Pest Control Operator Name Role Phone Ninfa Cruz DO Primary Care Provider [phone] Reason for Visit * Reason Onset Date Comments Medication Refill 05/25/2024 Encounter Details Date Type Department Care Team (Late st Contact Info) Description 05/25/2024 Refill Family Practice [facility] [address] [facility] [address] Ninfa Cruz DO [address] [place] [address] Allergies Active Allergy Reactions Criticality Noted Date [...] as of this encounter (statuses as of 05/25/2024) Medications Medication Sig Dispensed Refills Start Date [...] to 8 hours. 110 Each 02/10/2024 Active Dicyclomine HCl 10 MG Oral Capsule (Bentyl)Indications :Abdominal Distress Take 2 Capsules by mouth 4 times a day as needed for abdominal pain 120 Capsule 02/10/2024 Active Sucralfate 1 GM/10ML Oral Suspension (Carafate)Indicatio ns:Gastroesophageal reflux disease with esophagitis without hemorrhage Take 10 mL by mouth in the morning and 10 mL at noon and 10 mL in the evening and 10 mL before bedtime. 420 mL 1 02/11/2024 Active Benzonatate 100 MG Oral Capsule (Tessalmalu Perles)Indications: Suspected COVID-19 virus infection,Dry cough Take 1 Capsule by mouth 3 times a day as needed for Cough. Do not cut, crush, or chew. 30 Capsule 03/01/2024 Active Vitamin D3 1.25 MG (16102 UT) Oral CapsuleIndications: Vitamin D deficiency Take [...] MG/24HR Transdermal Patch 24 Hour (Nicoderm CQ)Indications:Toba property accountant use disorder Place 1 Patch over [...] or chew. 90 Capsule 1 05/06/2024 Active Bismuth Subsalicylate 262 MG/15ML Oral Suspension (Pepto-Bismol)Indic ations:Nausea Take 30 mL by mouth every 6 hours as needed for Nausea or Other (stomach upset). 975 mL 3 05/10/2024 Active QUEtiapine Fumarate 25 MG Oral Tablet [...] the morning. 90 Capsule 1 05/18/2024 Active documented as of this encounter (statuses as of 05/25/2024) Active Problems Problem Noted Date Diagnosed Date Food insecurity 06/23/2023 Overview: Per [facility] Protocol Severe episode of recurrent major depressive disorder, without psychotic features 06/01/2023 PTSD (post-traumatic stress disorder) 06/01/2023 Cannabis abuse 06/01/2023 Iron deficiency anemia 03/25/2023 Substance abuse 12/31/2022 Overview: UDS + meth 11/23/22 [facility], new onset of paranoia [...] PSG 2 [facility] Gastroesophageal reflux disease with esophagitis 03/14/2011 HTN, goal below 130/80 03/13/2011 Fibromyalgia 04/05/2010 Chronic nausea 04/02/2010 Overview: ICD-10 update of inactive term Intermittent asthma with rel iever use up to twice per week without complication 01/04/2010 ANDRE (generalized anxiety disorder) 10/24/2009 Dyslipidemia 08/24/2009 Overview: Per Lipid Taxonomy. Hypothyroidism 05/12/2009 documented as of this encounter (statuses as of 05/25/2024) Resolved Problems Problem Noted Date Diagnosed Date [...] as of this encounter (statuses as of 05/25/2024) Immunizations Name Administration Dates Next Due COVID-19, LNP-s, No Preserve , Lloyd-sucrose, Ages 12+ (Pfizer) 03/20/2022 H1N1 2009 Influenza, IM 11/09/2009 Pneumococcal Conjugate Vacci ne, 20-valent ([id number]) 02/04/2023 Pneumococcal Polysaccharide PPV23 (Pneumovax) 01/17/2009 Seasonal [...] How often do you attend orthodoxy or pentecostalism serv ices? Never 06/02/2023 Do you belong [...] Adult Total Score 0 02/04/2023 [facility] of Occupat ional Health - Occupational [...] * Telephone Encounter - Anjana Hardin - 05/25/2024 6:14 AM EDTRefused Prescriptions: Disp Refills Levothyroxine Sodium 75 MCG Oral Tablet (L*90 Tab*1 Sig: Take 1Tablet by mouth daily first thing in the morning.Refused By: Jazzy HARDINon for Refusal: Duplicate Request documented in this encounter Plan of Treatment Upcoming Encounters Date Type Department Care Team (Late st Contact Info) Description 11/10/2024 5:00 PM EST Office Visit Family Practice [facility] [address] [place] [address] Ninfa Cruz DO [address] [place] [address] Health Maintenance Due Date Last Done Comments DISCUSS TOBACCO CESSATION (REFER TO SMARTSET #[id number]) 1965 Cologuard 2008 Sigmoidoscopy 2008 Fecal Occult [...] Directives occurred with: Not Discussed Care Teams Pest Control Operator Relationship Specialty Start Date End Date Ninfa Cruz DO [address] [facility] [place] [address] PCP - General Family Medicine 02/08/16 documented as of this encounter
--- OUTSIDE RECORDS SUMMARY | 2024-11-18 23:28 | External Medical Summary | Summary of Care ---
Author Name Unknown Organization [facility] Address [address] [facility] [place] [address] Phone [phone] Care Team Providers Care Candy Department Manager Name Role Phone Ninfa Cruz DO Primary Care Provider Reason for Visit * Reason Onset Date Comments Medication Refill 05/26/2024 Encounter Details Date Type Department Care Team (Late st Contact Info) Description 05/26/2024 Refill Family Practice [facility] [address] [facility] [address] Ninfa Cruz DO [address] [place] [address] Allergies Active Allergy Reactions Criticality Noted Date [...] as of this encounter (statuses as of 05/26/2024) Medications Medication Sig Dispensed Refills Start Date [...] Capsule 03/01/2024 Active Vitamin D3 1.25 MG (70883 UT) Oral CapsuleIndications: Vitamin D deficiency Take [...] Transdermal Patch 24 Hour (Nicoderm CQ)Indications:Toba tobacco sorter use disorder Place 1 Patch over 24 [...] as of this encounter (statuses as of 05/26/2024) Active Problems Problem Noted Date Diagnosed Date Food insecurity 06/23/2023 Overview: Per [facility] Protocol Severe episode of recurrent major depressive disorder, without psychotic features 06/01/2023 PTSD (post-traumatic stress disorder) 06/01/2023 Cannabis abuse 06/01/2023 Iron deficiency anemia 03/25/2023 Substance abuse 12/31/2022 Overview: UDS + meth 11/23/22 [facility], new onset of paranoia and [...] very minimal noted on overnight PSG 2 [facility] Gastroesophageal reflux disease with esophagitis 03/14/2011 HTN, goal below 130/80 03/13/2011 Fibromyalgia 04/05/2010 Chronic nausea 04/02/2010 Overview: ICD-10 update of inactive term Intermittent asthma with rel iever use up to twice per week without complication 01/04/2010 ANDRE (generalized anxiety disorder) 10/24/2009 Dyslipidemia 08/24/2009 Overview: Per Lipid Taxonomy. Hypothyroidism 05/12/2009 documented as of this encounter (statuses as of 05/26/2024) Resolved Problems Problem Noted Date Diagnosed Date [...] as of this encounter (statuses as of 05/26/2024) Immunizations Name Administration Dates Next Due COVID-19, LNP-s, No Preserve , Lloyd-sucrose, Ages 12+ (Pfizer) 03/20/2022 H1N1 2009 Influenza, IM 11/09/2009 Pneumococcal Conjugate Vacci ne, 20-valent ([id number]) 02/04/2023 Pneumococcal Polysaccharide PPV23 (Pneumovax) 01/17/2009 Seasonal [...] often do you attend jehovah's witness or religion serv ices? Never 06/02/2023 Do [...] Recorded PHQ Adult Total Score 0 02/04/2023 [facility] - [...] * Telephone Encounter - Anjana Hardin - 05/26/2024 8:18 PM EDTRefused Prescriptions: Disp Refills Dicyclomine HCl 10 MG Oral Capsule (Bentyl)120 Ca*0 Sig: Take 2Capsules by mouth 4 times a day as needed for Other (abdominal pain).Refused By: CARMELO HARDINeason for Refusal: Duplicate Request documented in this encounter Plan of Treatment Upcoming Encounters Date Type Department Care Team (Late st Contact Info) Description 11/10/2024 5:00 PM EST Office Visit Family Practice [facility] [address] [place] [address] Ninfa Cruz DO [address] [place] [address] Health Maintenance Due Date Last Done Comments DISCUSS TOBACCO CESSATION (REFER TO SMARTSET #[id number]) 1963 Cologuard 2008 Sigmoidoscopy 2008 Fecal Occult [...] Directives occurred with: Not Discussed Care Teams Candy Department Manager Relationship Specialty Start Date End Date Ninfa Cruz DO [address] [place] [address] PCP - General Family Medicine 02/08/16 documented as of this encounter
--- OUTSIDE RECORDS SUMMARY | 2024-11-18 23:28 | External Medical Summary | Summary of Care ---
Author Name Unknown Organization [facility] Address [address] [place] [place] [address] Phone [phone] Care Team Providers Care Filter Plant Supervisor Name Role Phone Val Persaud DO Primary Care Provider [phone] Reason for Visit * Reason Comments eRx-Medication Refill Encounter Details Date Type Department Care Team (Late st Contact Info) Description 05/24/2024 Refill Family Practice [facility] [address] [facility] [address] Val Persaud DO [address] [place] [address] Gastroesophageal reflux disease with esophagitis without hemorrhage [...] 21 MG/24HR Transdermal Patch 24 Hour (Nicoderm CQ)Indications: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 110 Each 4 Active Dicyclomine HCl 10 MG Oral Capsule (Bentyl)Indication s:Abdominal Distress Take 2 Capsules by mouth 4 times a day as needed for abdominal pain 120 Capsule 4 Active Sucralfate 1 GM/10ML Oral Suspension (Carafate)Indicati ons:Gastroesophage al reflux disease with esophagitis without hemorrhage Take 10 mL by mouth in the morning and 10 mL at noon and 10 mL in the evening and 10 mL before bedtime. 420 mL 1 4 Active Benzonatate 100 MG Oral Capsule (Tessalmalu Perlmarifer)Indications :Suspected COVID-19 virus infection,Dry cough Take 1 Capsule by mouth 3 times a day as needed for Cough. Do not cut, crush, or chew. 30 Capsule 4 Active Vitamin D3 1.25 MG (19592 UT) Oral CapsuleIndications :Vitamin D deficiency Take [...] the morning. 30 Tablet 5 4 Active Budesonide-Formote rol Fumarate 160-4.5 MCG/ACT [...] needed for Anxiety. 30 Tablet 4 Active Levothyroxine Sodium 75 MCG Oral Tablet (Levoxyl)Indicatio ns:Hypothyroidism Take 1 Tablet by mouth daily first thing in the morning. 90 Tablet 1 4 Active Lyrica 225 MG Oral [...] Active Bismuth Subsalicylate 262 MG/15ML Oral Suspension (Pepto-Bismol)Lexie cations:Nausea Take 30 mL by mouth every 6 hours as needed for Nausea or Other (stomach upset). 975 mL 3 4 024 Discontinued documented as of this [...] IM 11/09/2009 Pneumococcal Conjugate Vacci ne, 20-valent ([id number]) 02/04/2023 Pneumococcal Polysaccharide PPV23 (Pneumovax) 01/17/2009 Seasonal [...] Never 06/02/2023 How often do you attend rastafarian or muslim serv ices? Never 06/02/2023 Do you belong to any clubs o r organizations such as rastafarian groups, unions, fraternal or athletic groups, or [...] Telephone Encounter - Val Persaud DO - 05/25/2024 9:32 AM EDTSigned Prescriptions: Disp Refills [facility] Stomach Relief 525 MG/30ML Oral Suspen*473 mL 1 Sig: TAKE 30 ML BY MOUTH EVERY 6 HOURS NEEDED FOR NAUSEA OR OTHER (STOMACH UPSET). Authorizing Provider: VAL PERSAUD * Telephone Encounter - Juana Salamanca LPN - 05/24/2024 1:39 PM EDTPending Prescriptions: Disp Refills [facility] Stomach Relief 525 MG/30ML Oral Suspen*473 mL 1 Sig: TAKE 30 ML BY MOUTH EVERY 6 HOURS NEEDED FOR NAUSEA OR OTHER (STOMACH UPSET). * Telephone Encounter - Anjana Hardin - 05/24/2024 1:32 PM EDTPending Prescriptions: Disp Refills [facility] Stomach Relief 525 MG/30ML Oral Suspen*473 mL 1 Sig: TAKE 30 ML BY MOUTH EVERY 6 HOURS NEEDED FOR NAUSEA OR OTHER (STOMACH UPSET). documented in this encounter Plan of Treatment Upcoming Encounters Date Type Department Care Team (Late st Contact Info) Description 11/10/2024 5:00 PM EST Office Visit Family Practice [facility] [address] [facility] [place] [address] Val Persaud DO [address] [place] [address] Health Maintenance Due Date Last Done Comments [...] Directives occurred with: Not Discussed Care Teams Filter Plant Supervisor Relationship Specialty Start Date End Date Val Persaud DO [address] [facility] [place] [address] PCP - General Family Medicine 02/08/16 documented as of this encounter
--- OUTSIDE RECORDS SUMMARY | 2024-11-18 23:28 | External Medical Summary | Summary of Care ---
Author Name Unknown Organization [facility] Address [address] [facility] [place] [address] Phone [phone] Care Team Providers Care Grocery Department Manager Name Role Phone Ninfa Cruz DO Primary Care Provider [phone] Reason for Visit * Reason Onset Date Comments Medication Refill 05/25/2024 Encounter Details Date Type Department Care Team (Late st Contact Info) Description 05/25/2024 Refill Family Practice [facility] [address] [facility] [place] [address] Ninfa Cruz DO [address] [place] [address] Gastroesophageal reflux disease with esophagitis without hemorrhage [...] 21 MG/24HR Transdermal Patch 24 Hour (Nicoderm CQ)Indications:COPD, moderate (HCC),Tobacco use disorder Place 1 Patch over 24 hours topically on the skin daily. 28 Patch 1 07/31/2023 Active Vitamin B-12 1000 MCG Oral Tablet (Cyanocobalamin)Lexie cations:Vitamin Deficiency Prophylaxis Take 1 Tablet by mouth in the morning. 100 Tablet 3 09/23/2023 Active Nicotine Polacrilex 2 MG Mouth/Throat Gum (Nicorette) Chew one piece of gum every 1 to 2 hours for the first 6 weeks, then 1 every 2 to 4 hours for weeks 7 to 9, then 1 every 4 to 8 hours. 120 Each 1 09/23/2023 Active Ipratropium-Albutero l 0.5-2.5 (3) MG/3ML Inhalation Solution (Duoneb)Indications: COPD, moderate (HCC) Inhale 3 mL via nebulizer in the morning and 3 mL at noon and 3 mL in the evening and 3 mL before bedtime. 180 mL 1 01/20/2024 Active Nicotine Polacrilex 4 MG Mouth/Throat Gum (GNP Nicotine Polacrilex)Indicatio ns:Tobacco use Chew one piece of gum every 1 to 2 hours for the first 6 weeks, then 1 every 2 to 4 hours for weeks 7 to 9, then 1 every 4 to 8 hours. 110 Each 02/10/2024 Active Sucralfate 1 GM/10ML Oral Suspension (Carafate)Indication s:Gastroesophageal reflux disease with esophagitis without hemorrhage Take 10 mL by mouth in the morning and 10 mL at noon and 10 mL in the evening and 10 mL before bedtime. 420 mL 1 02/11/2024 Active Benzonatate 100 MG Oral Capsule (Tessalon Perles)Indications:S uspected COVID-19 virus infection,Dry cough Take 1 Capsule by mouth 3 times a day as needed for Cough. Do not cut, crush, or chew. 30 Capsule 03/01/2024 Active Vitamin D3 1.25 MG (13876 UT) Oral CapsuleIndications:V itamin D deficiency Take 1 Capsule by mouth once a week. 12 Capsule 03/16/2024 Active Dexlansoprazole 60 MG Oral Capsule Delayed Release (Dexilant)Indication s:Gastroesophageal reflux disease with esophagitis without hemorrhage Take 1 Capsule by mouth in the morning. 90 Capsule 1 03/29/2024 Active Prochlorperazine Maleate 10 MG Oral Tablet (Compazine) TAKE ONE TABLET BY MOUTH EVERY 6 HOURS NEEDED FOR NAUSEA 120 Tablet 2 04/05/2024 Active Albuterol Sulfate HFA 108 (90 Base) MCG/ACT Inhalation Aerosol SolutionIndications: COPD with Bronchospasms Prophylaxis Inhale 2 Puffs by mouth every 6 hours as needed for Dyspnea. 54 g 04/05/2024 Active Lidocaine 5 % External Patch (Lidoderm)Indication s:Personal history of fall,Closed fracture of one rib of left side, initial encounter Place 1 Patch over 12 hours topically on the skin daily. 30 Patch 04/12/2024 Active Nicotine 14 MG/24HR Transdermal Patch 24 Hour (Nicoderm CQ)Indications:Tobac co use disorder Place 1 Patch over 24 hours topically on the skin daily. 28 Patch 04/12/2024 Active Loratadine 10 MG Oral Tablet (Claritin)Indication s:Allergic Rhinitis Take 1 Tablet by mouth in the morning. 30 Tablet 5 04/14/2024 Active Budesonide-Formotero l Fumarate 160-4.5 MCG/ACT Inhalation Aerosol (Symbicort)Indicatio ns:COPD, moderate (HCC) INHALE 2 PUFFS BY MOUTH TWICE DAILY 30.6 g 1 04/16/2024 Active Methocarbamol 500 MG Oral Tablet (Robamol) Take 1 Tablet by mouth 3 times a day as needed for Muscle spasms. 30 Tablet 04/16/2024 Active Simethicone 80 MG Oral Tablet Chewable (Gas Relief)Indications:G as Pain Take 1 Tablet by mouth every 6 hours as needed for Gas. 30 Tablet 5 04/28/2024 Active Ferrous Sulfate 325 (65 Fe) MG Oral Tablet (FeroSul)Indications :Anemia Take 1 Tablet by mouth in the morning and 1 Tablet at noon and 1 Tablet in the evening. Take with meals. 90 Tablet 2 05/03/2024 Active Venlafaxine HCl ER 75 MG Oral Capsule Extended Release 24 Hour (Effexor XR)Indications:Moder ate episode of recurrent major depressive disorder (HCC) Take 1 Capsule by mouth in the morning. Do not cut, crush or chew. 90 Capsule 1 05/06/2024 Active QUEtiapine Fumarate 25 MG Oral Tablet (SEROquel)Indication s:Anxiety Take 1 Tablet by mouth every 8 hours as needed for Anxiety. 30 Tablet 05/10/2024 Active Levothyroxine Sodium 75 MCG Oral Tablet (Levoxyl)Indications :Hypothyroidism Take 1 Tablet by mouth daily first thing in the morning. 90 Tablet 1 05/12/2024 Active Lyrica 225 MG Oral CapsuleIndications:C hronic pain syndrome Take 1 Capsule by mouth in the morning and 1 Capsule before bedtime. 60 Capsule 3 05/12/2024 Active Ondansetron 4 MG Oral Tablet Disintegrating (Zofran)Indications: Nausea Place 1 Tablet on tongue every 6 hours as needed for Nausea. 90 Tablet 5 05/12/2024 Active Estradiol 0.1 MG/GM Vaginal Cream (Estrace)Indications :Menopause USE 1/4 OF APPLICATORFUL 2 TO 3 TIMES PER WEEK. 42.5 g 2 05/12/2024 Active Fluticasone Propionate 50 MCG/ACT Nasal Suspension (Flonase)Indications :Asthma Administer 2 Sprays into nostril 2 times a day as needed for Congestion. 16 g 5 05/12/2024 Active Phenazopyridine HCl 200 MG Oral Tablet (Pyridium)Indication s:Dysuria Take 1 Tablet by mouth 3 times a day as needed for Pain, Mild. After meals for pain with urination 20 Tablet 3 05/18/2024 Active Dexlansoprazole 60 MG Oral Capsule Delayed Release (Dexilant)Indication s:Gastroesophageal reflux disease with esophagitis without hemorrhage Take 1 Capsule by mouth in the morning. 90 Capsule 1 05/18/2024 Active [facility] Stomach Relief 525 MG/30ML Oral Suspension (Bismuth Subsalicylate)Indica tions:Gastroesophage al reflux disease with esophagitis without hemorrhage TAKE 30 ML BY MOUTH EVERY 6 HOURS NEEDED FOR NAUSEA OR OTHER (STOMACH UPSET). 473 mL 1 05/25/2024 Active documented as of this encounter (statuses as of 05/27/2024) Active Problems Problem Noted Date Diagnosed Date Food insecurity 06/23/2023 Overview: Per [facility] Protocol Severe episode of recurrent major depressive disorder, without psychotic features 06/01/2023 PTSD (post-traumatic stress disorder) 06/01/2023 Cannabis abuse 06/01/2023 Iron deficiency anemia 03/25/2023 Substance abuse 12/31/2022 Overview: UDS + meth 11/23/22 [facility], [...] IM 11/09/2009 Pneumococcal Conjugate Vacci ne, 20-valent ([id number]) 02/04/2023 Pneumococcal Polysaccharide PPV23 (Pneumovax) 01/17/2009 Seasonal [...] Never 06/02/2023 How often do you attend hinduism or jewish serv ices? Never 06/02/2023 Do you belong to any clubs o r organizations such as hinduism groups, unions, fraternal or athletic groups, or [...] Recorded PHQ Adult Total Score 0 02/04/2023 [facility] - Occupational [...] Telephone Encounter - Usha Devine RPh - 05/27/2024 11:50 AM EDT Refused Prescriptions: Disp Refills Bismuth Subsalicylate 262 MG/15ML Oral Chani*473 mL 1 Refused By:USHA DEVINE for Refusal: Duplicate Request documented in this encounter Plan of Treatment Upcoming Encounters Date Type Department Care Team (Late st Contact Info) Description 11/10/2024 5:00 PM EST Office Visit Family [facility] [address] [place] [address] Ninfa Cruz DO [address] [place] [address] Health Maintenance Due Date Last Done Comments DISCUSS TOBACCO CESSATION (REFER TO SMARTSET #[id number]) 1965 Cologuard 2008 Sigmoidoscopy 2008 Fecal Occult [...] Directives occurred with: Not Discussed Care Teams Grocery Department Manager Relationship Specialty Start Date End Date Ninfa Cruz DO [address] [place] [address] PCP - General Family Medicine 02/08/16 documented as of this encounter
--- OUTSIDE RECORDS SUMMARY | 2024-11-18 23:28 | External Medical Summary | Summary of Care ---
Author Name Unknown Organization [facility] Address [address] [facility] [place] [address] Phone [phone] Care Team Providers Care Cotton Ginner Helper Name Role Phone Ninfa Cruz DO Primary Care Provider [phone] Reason for Visit * Reason Onset Date Comments Medication Refill 05/25/2024 Encounter Details Date Type Department Care Team (Late st Contact Info) Description 05/25/2024 Refill Family Practice [facility] [address] [facility] [address] Ninfa Cruz DO [address] [place] [address] Allergies Active Allergy Reactions Criticality Noted Date [...] Capsule 03/01/2024 Active Vitamin D3 1.25 MG (35637 UT) Oral CapsuleIndications:V itamin D deficiency Take [...] abuse 12/31/2022 Overview: UDS + meth 11/23/22 [facility], new onset of paranoia and [...] very minimal noted on overnight PSG 2 [facility] Gastroesophageal [...] allergic conjunctivitis 10/26/2009 06/23/2017 Mixed dyslipidemia 05/12/2009 12 9 Overview: Per Lipid Taxonomy. Abnormal results [...] IM 11/09/2009 Pneumococcal Conjugate Vacci ne, 20-valent ([id number]) 02/04/2023 Pneumococcal Polysaccharide PPV23 (Pneumovax) 01/17/2009 Seasonal [...] How often do you attend hoahaoism or oriental orthodox serv ices? Never 06/02/2023 [...] No 12/22/2023 Does the household have a [facility] hospit[facility] source of income? (Household - [...] glasses? No 09/01/2019 Does this person have serjosueu s difficulty walking or climbing stairs? Yes [...] 11:50 AM EDT Refused Prescriptions: Disp Refills Loratadine 10 MG Oral Tablet (Claritin) 30 Tab*5 Sig: Take 1 Tablet by mouth in the morning.Refused By: USHA DEVINE for Refusal: Too soon documented in this encounter Plan of Treatment Upcoming Encounters Date Type Department Care Team (Late st Contact Info) Description 11/10/2024 5:00 PM EST Office Visit Family [facility] [address] [place] [address] Ninfa Cruz DO [address] [place] [address] [address] Health Maintenance Due Date Last Done Comments DISCUSS TOBACCO CESSATION (REFER TO SMARTSET #[id number]) 1965 Cologuard 2008 Sigmoidoscopy 2008 Fecal Occult [...] Directives occurred with: Not Discussed Care Teams Cotton Ginner Helper Relationship Specialty Start Date End Date Ninfa Cruz DO [address] [place] [address] PCP - General Family Medicine 02/08/16 documented as of this encounter
--- OUTSIDE RECORDS SUMMARY | 2024-11-18 23:28 | External Medical Summary | Summary of Care ---
Author Name Unknown Organization [facility] Address [address] [facility] [place] [address] Phone [phone] Care Team Providers Care Director Of Neighborhood Service Center Name Role Phone Val Persaud DO Primary Care Provider Reason for Visit * Reason Onset Date Comments Medication Refill 05/26/2024 Encounter Details Date Type Department Care Team (Late st Contact Info) Description 05/26/2024 Refill Family Practice [facility] [address] [facility] [address] Val Persaud DO [address] [place] [address] Allergies Active Allergy Reactions Criticality Noted Date [...] Capsule 4 Active Vitamin D3 1.25 MG (31978 UT) Oral CapsuleIndications: Vitamin D deficiency Take [...] Transdermal Patch 24 Hour (Nicoderm CQ)Indications: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 120 Capsule 4 Active Dicyclomine HCl 10 MG Oral Capsule (Bentyl)Indications :Abdominal Distress Take 2 Capsules by mouth 4 times a day as needed for abdominal pain 120 Capsule 4 05/26/20 24 Discontinu ed(Refill) documented as of this [...] minimal noted on overnight PSG 2 [facility] Gastroesophageal reflux disease with esophagitis [...] IM 11/09/2009 Pneumococcal Conjugate Vacci ne, 20-valent ([id number]) 02/04/2023 Pneumococcal Polysaccharide PPV23 (Pneumovax) 01/17/2009 Seasonal [...] often do you attend oriental orthodox or tenriism serv ices? Never 06/02/2023 Do [...] Score 0 02/04/2023 [facility] - Occupational Stress Questionnaire Answer [...] Telephone Encounter - Val Persaud DO - 05/26/2024 3:08 PM EDTSigned Prescriptions: Disp Refills Dicyclomine HCl 10 MG Oral Capsule (Bentyl)120 Ca*0 Sig: Take 2 Capsules by mouth 4 times a day as needed for Other (abdominal pain). Authorizing Provider: VAL PERSAUD * Telephone Encounter - Adriana Fenton LPN - 05/26/2024 2:54 PM EDTPending Prescriptions: Disp Refills Dicyclomine HCl 10 MG Oral Capsule (Bentyl)120 Ca*0 Sig: Take 2 Capsules by mouth 4 times a day as needed for Other (abdominal pain). * Telephone Encounter - Adriana Fenton LPN - 05/26/2024 2:53 PM EDT Did you pend patient's preferred pharmacy and medication before forwarding?yes Pharmacy: [id number] Pending Prescriptions: Disp Refills Dicyclomine HCl [...] appointment Last date the medication was ordered: 02/10/2024 Is this request for a controlled substance?No [...] Telephone Encounter - Anjana Hardin - 05/26/2024 2:52 PM EDTPending Prescriptions: Disp Refills Dicyclomine HCl 10 MG Oral Capsule (Bentyl)120 Ca*0 Sig: Take 2Capsules by mouth 4 times a day as needed for Other (abdominal pain). documented in this encounter Plan of Treatment Upcoming Encounters Date Type Department Care Team (Late st Contact Info) Description 11/10/2024 5:00 PM EST Office Visit Family Practice [facility] [address] [place] [address] Val Persaud DO [address] [place] [address] Health Maintenance Due Date Last Done Comments DISCUSS TOBACCO CESSATION (REFER TO SMARTSET #[id number]) 1965 Cologuard 2008 Sigmoidoscopy 2008 Fecal Occult [...] with: Not Discussed Care Teams Director Of Neighborhood Service Center Relationship Specialty Start Date End Date Val Persaud DO [address] [place] [address] PCP - General Family Medicine 02/08/16 documented as of this encounter
--- OUTSIDE RECORDS SUMMARY | 2024-11-18 23:28 | External Medical Summary | Summary of Care ---
Author Name Unknown Organization [facility] Address [address] [facility] [place] [address] Phone [phone] Care Team Providers Care Keno Writer/Runner Name Role Phone Ninfa Cruz DO Primary Care Provider [phone] Reason for Visit * Reason Onset Date Comments Medication Refill 05/23/2024 Encounter Details Date Type Department Care Team (Late st Contact Info) Description 05/23/2024 Refill Family Practice [facility] [address] [facility] [address] Ninfa Cruz DO [address] [place] [address] Encounter for long-term (current) use of medications* Allergies Active Allergy Reactions Criticality Noted Date [...] Capsule 03/01/2024 Active Vitamin D3 1.25 MG (48421 UT) Oral CapsuleIndications: Vitamin D deficiency Take [...] MG/24HR Transdermal Patch 24 Hour (Nicoderm CQ)Indications: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 Never 06/02/2023 Do [...] Recorded PHQ Adult Total Score 0 02/04/2023 [facility] - [...] encounter Miscellaneous Notes * Telephone Encounter - Vj Rojo RPh - 05/25/2024 8:19 AM EDT Refused Prescriptions: Disp Refills Levothyroxine Sodium 75 MCG Oral Tablet (L*90 Tab*1 Sig: Take 1 Tablet by mouth daily first thing in the morning.Refused By: VJ ROJO for Refusal: Duplicate Request documented in this encounter Plan of Treatment Upcoming Encounters Date Type Department Care Team (Late st Contact Info) Description 11/10/2024 5:00 PM EST Office Visit Family Practice [facility] [address] [address] [address] Ninfa Cruz DO [address] [address] Scheduled Orders Name Type Priority Associated Diagnoses Orde r Schedule TSH WITH FREE T4 IF INDICATED Lab Routine Encounter for long-term (current) use of medications Expected: 05/25/2024 (Approximate), Expires: 05/25/2025 Health Maintenance Due Date Last Done Comments [...] Directives occurred with: Not Discussed Care Teams Keno Writer/Runner Relationship Specialty Start Date End Date Ninfa Cruz DO [address] [place] [address] PCP - General Family Medicine 02/08/16 documented as of this encounter
--- NOTE | 2024-11-19 01:33 | CT Scan Report ---
Exam(s): CT CHEST Without Contrast EXAM: CT Chest Without Intravenous Contrast CLINICAL HISTORY: R hilar fullness. TECHNIQUE: Axial computed tomography images of the chest without intravenous contrast. CTDI is 9.36 mGy and DLP is 297.66 mGy-cm. Automated exposure control was utilized for the study. A dose lowering technique was utilized adhering to the principles of ALARA. COMPARISON: CTA chest performed 03/15/2016 FINDINGS: Limitations: There is diffuse respiratory artifact, which degrades image quality throughout the examination. The examination is also limited by lack of IV contrast. Lungs: See below. Pleural space: There are dependent subsegmental changes in the posterior costophrenic margins. Trace pleural effusion noted in the left posterior costophrenic margin. No pneumothorax. Heart: The cardiac chambers are within normal limits. There is at least moderate coronary artery calcification of the proximal circumflex artery. Trace pericardial effusion. 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 This is new from the previous examination but the nonunited fractures all appear remote. The left ribs and thoracic spine are intact. Multilevel chronic anterior wedging noted at several thoracic vertebral body levels resulting in accentuated kyphosis. No dislocation. Soft tissues: Unremarkable. Vasculature: The unenhanced thoracic aorta is normal in caliber. Lymph nodes: The unenhanced right hilar vasculature is similar in morphologic appearance when compared to the previous examination. There are pericarinal and subcarinal lymph nodes noted with the largest subcarinal lymph node measuring 13 mm and short axis diameter. Evaluation for right hilar lymphadenopathy is limited without contrast and respiratory artifact; however, no obvious hilar mass noted. IMPRESSION: 1. There is diffuse respiratory artifact, which degrades image quality throughout the examination. The examination is also limited by lack of IV contrast. 2. The unenhanced right hilar vasculature is similar in morphologic appearance when compared to the previous examination. There are pericarinal and subcarinal lymph nodes noted with the largest subcarinal lymph node measuring 13 mm and short axis diameter. Evaluation for right hilar lymphadenopathy is limited without contrast and respiratory artifact; however, no obvious hilar mass noted. 3. There are dependent subsegmental presumed atelectatic changes in the posterior costophrenic margins. Trace pleural effusion in the left posterior costophrenic margin. No loculation. 4. 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 This is new from the previous examination but the nonunited fractures all appear remote. Electronically signed by: Esequiel Elizabeth MD 11/19/24 01:33 AM
[2024-11-19 03:52] LABS: Basophils # (auto) 0.06 K/uL (0.00-0.20); Basophils % (auto) 0.4 %; Eosinophils # (auto) 0.01 K/uL (0.00-0.50); Eosinophils % (auto) 0.1 %; Hematocrit (blood only) 37.4 % (37.0-47.0); Hemoglobin 12.4 g/dl (12.0-16.0); Immature Granulocytes # (auto) 0.06 K/uL (0.01-0.20); Immature Granulocytes % (auto) 0.4 %; Lymphocytes # (auto) 1.93 K/uL (1.20-3.40); Mean Corpuscular Hemoglobin 28.7 pg (25.0-34.0); Mean Corpuscular Hgb Conc 33.2 g/dL (32.0-36.0); Mean Corpuscular Volume 86.6 fL (80.0-100.0); Mean Platelet Volume 11.2 fL (9.4-12.4); Monocytes # (auto) 1.31 K/uL (0.11-0.59); Monocytes % (auto) 9.5 %; Neutrophils # (auto) 10.37 K/uL (1.40-6.50); Neutrophils % (auto) 75.6 %; Platelet Count 225 K/uL (130-400); RDW Standard Deviation 40.8 fL (36.4-46.3); Red Blood Count 4.32 M/uL (4.20-5.40); White Blood Count 13.74 K/ul (4.8-10.8)
[2024-11-19 04:13] LABS: Albumin Globulin Ratio 1.3 (0.9-2); Albumin Level 3.6 gm/dl (3.4-5.0); Bilirubin,Total 1.2 mg/dl (0.2-1.0); Calcium 8.8 mg/dl (8.6-10.3); Creatinine Clr Calc Pharmacy 95.8 ml/min; Globulin 2.8 gm/dl (2.5-4.0); Magnesium 1.6 mg/dl (1.7-2.4); Phosphorus 2.1 mg/dl (2.5-4.9); Potassium 3.8 mmol/L (3.5-5.1); Total Protein 6.4 gm/dl (6.0-8.3)
[2024-11-19] MEDS: LEVOTHYROXINE SODIUM 75 MCG TABLET PO SCH (05:47)
[2024-11-19 07:17] LABS: Estimated Average Glucose 120 mg/dl; Hemoglobin A1C 5.8 % (4.5-5.6)
--- NOTE | 2024-11-19 07:28 | Critical Care Progress Note ---
Date of Service November 19, 2024 Assessment & Plan (1) ST elevation (STEMI) myocardial infarction: Plan Impression: 59-year-old female with history of chronic pain issues and methamphetamine abuse here with ST elevation myocardial infarction status post drug-eluting stent to the LAD. Echo shows depressed ejection fraction with regional wall motion abnormalities as well as moderate MR. CT of the chest shows multiple rib fractures but no mass. Small likely reactive adenopathy. Recommendations: 1. Acute coronary syndrome: Status post stent placement. Second occlusion unable to be passed with care. Continue cardiology management. Dual antiplatelet agents. Metoprolol as tolerated by blood pressure and heart rate. Uptitrate add SUKHDEEP inhibitor and goal-directed therapy given her reduced ejection fraction. Will need defibrillator best prior to discharge. Patient will need cardiac rehab and follow-up with the heart failure clinic. Additional recommendations per cardiology 2. Leukocytosis: Suspect reactive. Improving today. No signs of infection 3. Hyponatremia: Mild. Stable. Continue to follow 4. Substance abuse: Patient should remain free of substance abuse in the future 5. Will defer DVT prophylaxis as the patient should be up and around relatively quickly. 6. No evidence of lung mass on CT of the chest. Small adenopathy. No indication for radiographic surveillance in the absence clinical symptoms. Multiple fractures chronic. The patient's critical care issues are resolved. She can transfer out of the ICU. Critical care will sign off. Feel free to contact us with questions or concerns Admission and Anticipated Discharge Date Admission Date: November 18, 2024 Subjective Patient seen and examined. EMR reviewed. Discussed with overnight critical care NATE as well as with bedside nurse. The patient is doing well clinically. She is awake alert conversant sitting up in a chair eating breakfast. She does not have any new palpitations or chest pressure. No shortness of breath. Minimal cough. No nausea or vomiting. She overall feels like she is improved Review of Systems Review of Systems: All systems reviewed & are unremarkable except as noted in Subjective Physical Exam Constitutional: WD/WN, vitals as above Neck: trachea midline, no thyromegaly Respiratory: normal respiratory effort, lungs clear to auscultation Cardiovascular: RRR, no murmur, no edema Gastrointestinal (Abdomen): normal bowel sounds, soft, nontender, no hepatosplenomegaly Musculoskeletal: Extremities: extremities normal to inspection Skin: no rashes, warm and dry Lymphatic: no cervical lymphadenopathy Results & Data Results & Data Vital Signs (Past 12 Hours) Vital Signs Temp Pulse Resp BP Pulse Ox 11/19/24 05:42 114 H 18 11/19/24 05:18 87 22 95 11/19/24 05:02 98/70 L 11/19/24 04:51 93 H 19 94 11/19/24 04:30 98 H 19 94 11/19/24 04:09 100 H 19 94 11/19/24 04:01 113/72 11/19/24 03:57 111 H 23 95 11/19/24 03:54 36.8 C 11/19/24 03:33 94 H 17 96 11/19/24 03:03 92 H 24 97 11/19/24 03:00 104/77 11/19/24 03:00 104/77 11/19/24 03:00 104/77 11/19/24 02:39 85 22 97 11/19/24 02:33 89 23 98 11/19/24 02:18 90 23 98 11/19/24 02:00 108/74 11/19/24 02:00 108/74 11/19/24 01:27 93 H 18 96 11/19/24 01:21 91 H 21 96 11/19/24 01:00 102/72 11/19/24 00:54 88 24 99 11/19/24 00:42 88 23 97 11/19/24 00:00 98/69 L 11/19/24 00:00 98/69 L 11/19/24 00:00 98/69 L 11/19/24 00:00 88 20 96 11/19/24 00:00 86 11/18/24 23:57 36.8 C 11/18/24 23:42 84 22 96 11/18/24 23:00 84 24 96 11/18/24 23:00 99/68 L 11/18/24 23:00 99/68 L 11/18/24 23:00 99/68 L 11/18/24 22:45 85 24 96 11/18/24 22:37 94/71 L 11/18/24 22:12 83 24 95 11/18/24 22:03 82 24 96 11/18/24 22:00 94/69 L 11/18/24 22:00 94/69 L 11/18/24 22:00 94/69 L 11/18/24 21:36 90 18 94 11/18/24 21:06 113 H 17 95 11/18/24 21:00 127/84 11/18/24 20:54 109 H 22 97 11/18/24 20:48 132/85 11/18/24 20:48 132/85 11/18/24 20:42 119 H 22 96 11/18/24 20:30 104 H 15 96 11/18/24 20:00 125/84 11/18/24 20:00 99 H 21 96 11/18/24 19:30 36.9 C Critical Care Results & Data Vital Signs (Past 12 Hours) Vital Signs Temp Pulse Resp BP Pulse Ox 11/19/24 05:42 114 H 18 11/19/24 05:18 87 22 95 11/19/24 05:02 98/70 L 11/19/24 04:51 93 H 19 94 11/19/24 04:30 98 H 19 94 11/19/24 04:09 100 H 19 94 11/19/24 04:01 113/72 11/19/24 03:57 111 H 23 95 11/19/24 03:54 36.8 C 11/19/24 03:33 94 H 17 96 11/19/24 03:03 92 H 24 97 11/19/24 03:00 104/77 11/19/24 03:00 104/77 11/19/24 03:00 104/77 11/19/24 02:39 85 22 97 11/19/24 02:33 89 23 98 11/19/24 02:18 90 23 98 11/19/24 02:00 108/74 11/19/24 02:00 108/74 11/19/24 01:27 93 H 18 96 11/19/24 01:21 91 H 21 96 11/19/24 01:00 102/72 11/19/24 00:54 88 24 99 11/19/24 00:42 88 23 97 11/19/24 00:00 98/69 L 11/19/24 00:00 98/69 L 11/19/24 00:00 98/69 L 11/19/24 00:00 88 20 96 11/19/24 00:00 86 11/18/24 23:57 36.8 C 11/18/24 23:42 84 22 96 11/18/24 23:00 84 24 96 11/18/24 23:00 99/68 L 11/18/24 23:00 99/68 L 11/18/24 23:00 99/68 L 11/18/24 22:45 85 24 96 11/18/24 22:37 94/71 L 11/18/24 22:12 83 24 95 11/18/24 22:03 82 24 96 11/18/24 22:00 94/69 L 11/18/24 22:00 94/69 L 11/18/24 22:00 94/69 L 11/18/24 21:36 90 18 94 11/18/24 21:06 113 H 17 95 11/18/24 21:00 127/84 11/18/24 20:54 109 H 22 97 11/18/24 20:48 132/85 11/18/24 20:48 132/85 11/18/24 20:42 119 H 22 96 11/18/24 20:30 104 H 15 96 11/18/24 20:00 125/84 11/18/24 20:00 99 H 21 96 11/18/24 19:30 36.9 C Lab & Micro Results (Past 24 Hours) RBC 4.32 M/uL (4.20-5.40) 11/19/24 WBC 13.74 K/ul (4.8-10.8) H 11/19/24 Hgb 12.4 g/dl (12.0-16.0) 11/19/24 Hct 37.4 % (37.0-47.0) 11/19/24 MCV 86.6 fL (80.0-100.0) 11/19/24 MCH 28.7 pg (25.0-34.0) 11/19/24 MCHC 33.2 g/dL (32.0-36.0) 11/19/24 RDW Standard Deviation 40.8 fL (36.4-46.3) 11/19/24 RDW Coefficient of Variation 13.0 % (11.5-14.5) 11/19/24 Plt Count 225 K/uL (130-400) 11/19/24 MPV 11.2 fL (9.4-12.4) 11/19/24 Neutrophils (%) (Auto) 75.6 % 11/19/24 Lymphocytes (%) (Auto) 14.0 % 11/19/24 Monocytes # (Auto) 1.31 K/uL (0.11-0.59) H 11/19/24 Eosinophils # (Auto) 0.01 K/uL (0.00-0.50) 11/19/24 Immature Granulocyte % (Auto) 0.4 % 11/19/24 Neutrophils # (Auto) 10.37 K/uL (1.40-6.50) H 11/19/24 Lymphocytes # (Auto) 1.93 K/uL (1.20-3.40) 11/19/24 Monocytes # (Auto) 1.31 K/uL (0.11-0.59) H 11/19/24 Eosinophils # (Auto) 0.01 K/uL (0.00-0.50) 11/19/24 Basophils # (Auto) 0.06 K/uL (0.00-0.20) 11/19/24 Immature Granulocyte # (Auto) 0.06 K/uL (0.01-0.20) 5 Na 131 mmol/L (136-145) L 11/19/24 K 3.8 mmol/L (3.5-5.1) 11/19/24 Cl 101 mmol/L (98-107) 11/19/24 CO2 29 mmol/L (21-32) 11/19/24 Anion Gap 1 (3-11) L 11/19/24 BUN 9 mg/dl (6-23) 11/19/24 Creatinine 0.60 mg/dl (0.6-1.2) 11/19/24 BUN/Creatinine Ratio 15.0 (10-20) 11/19/24 Glu 95 mg/dl (70-99(Fasting)) 11/19/24 Ca 8.8 mg/dl (8.6-10.3) 11/19/24 Phosphorus Level 2.1 mg/dl (2.5-4.9) L 11/19/24 Total Bilirubin 1.2 mg/dl (0.2-1.0) H 11/19/24 AST 155 U/L (13-39) H 11/19/24 ALT 85 U/L (7-52) H 11/19/24 Alkaline Phosphatase 94 U/L (34-104) 11/19/24 TP 6.4 gm/dl (6.0-8.3) 11/19/24 Albumin 3.6 gm/dl (3.4-5.0) 11/19/24 Globulin 2.8 gm/dl (2.5-4.0) 11/19/24 Albumin/Globulin Ratio 1.3 (0.9-2) 11/19/24 Mg 1.6 mg/dl (1.7-2.4) L 11/19/24 03:31 Calcium Level 8.8 mg/dl (8.6-10.3) 11/19/24 03:31 Prothromb Time International Ratio 1.1 (0.9-1.1) 11/18/24 11:3 0 Diagnostic Findings (Past 24 Hours) Chest X-Ray 11/18/24 11:39 XR chest 1V portable CLINICAL HISTORY: Chest pain, nonspecific COMPARISON STUDY: 11/18/2022 FINDINGS: There is mild cardiomegaly without pulmonary vascular congestion. There is interval prominence of the right hilum. No consolidation, pleural effusion, or pneumothorax. There are old healed fractures at the left upper ribs. IMPRESSION: 1. Interval prominence of the right hilum. Differential diagnosis includes artifact, lymphadenopathy, and mass. Follow-up chest CT recommended. 2. No other acute findings seen. ACT 112: Positive. There are findings on this exam that require communication between the performing entity and the patient following Patient Test Result Information Act ([place] Act 112) guidelines. Electronically signed by: Tonny Min M.D. 11/18/2024 12:03 PM Liver Ultrasound 11/18/24 14:46 INDICATION: Abdominal pain. COMPARISON: CT abdomen pelvis from 09/27/2022. TECHNIQUE: Transverse and longitudinal jacob scale and color Doppler images of the right upper quadrant were obtained. FINDINGS: Liver: Measures up to 16 cm in length. Negative for hepatic mass. Mild biliary ductal prominence. Gallbladder: Surgically absent. The common bile duct is dilated up to 1.6 cm. Pancreas: Mild pancreatic ductal prominence. No pancreatic mass identified. Right kidney: Negative for solid renal mass, hydronephrosis, cyst or shadowing calculus. IMPRESSION: Biliary ductal/pancreatic ductal prominence likely related to patient's postcholecystectomy state. Follow-up with MRCP as clinically relevant. Electronically signed by Jayy Ambriz 11-18-2024 4:[address] 11/18/24 15:54 Exam(s): CT CHEST Without Contrast EXAM: CT Chest Without Intravenous Contrast CLINICAL HISTORY: R hilar fullness. TECHNIQUE: Axial computed tomography images of the chest without intravenous contrast. CTDI is 9.36 mGy and DLP is 297.66 mGy-cm. Automated exposure control was utilized for the study. A dose lowering technique was utilized adhering to the principles of ALARA. COMPARISON: CTA chest performed 03/15/2016 FINDINGS: Limitations: There is diffuse respiratory artifact, which degrades image quality throughout the examination. The examination is also limited by lack of IV contrast. Lungs: See below. Pleural space: There are dependent subsegmental changes in the posterior costophrenic margins. Trace pleural effusion noted in the left posterior costophrenic margin. No pneumothorax. Heart: The cardiac chambers are within normal limits. There is at least moderate coronary artery calcification of the proximal circumflex artery. Trace pericardial effusion. 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 This is new from the previous examination but the nonunited fractures all appear remote. The left ribs and thoracic spine are intact. Multilevel chronic anterior wedging noted at several thoracic vertebral body levels resulting in accentuated kyphosis. No dislocation. Soft tissues: Unremarkable. Vasculature: The unenhanced thoracic aorta is normal in caliber. Lymph nodes: The unenhanced right hilar vasculature is similar in morphologic appearance when compared to the previous examination. There are pericarinal and subcarinal lymph nodes noted with the largest subcarinal lymph node measuring 13 mm and short axis diameter. Evaluation for right hilar lymphadenopathy is limited without contrast and respiratory artifact; however, no obvious hilar mass noted. IMPRESSION: 1. There is diffuse respiratory artifact, which degrades image quality throughout the examination. The examination is also limited by lack of IV contrast. 2. The unenhanced right hilar vasculature is similar in morphologic appearance when compared to the previous examination. There are pericarinal and subcarinal lymph nodes noted with the largest subcarinal lymph node measuring 13 mm and short axis diameter. Evaluation for right hilar lymphadenopathy is limited without contrast and respiratory artifact; however, no obvious hilar mass noted. 3. There are dependent subsegmental presumed atelectatic changes in the posterior costophrenic margins. Trace pleural effusion in the left posterior costophrenic margin. No loculation. 4. 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 This is new from the previous examination but the nonunited fractures all appear remote. Electronically signed by: Esequiel Elizabeth MD 11/19/24 01:33 AM I & O Totals 24 Hours 11/18/24 11/19/24 11/20/24 06:59 06:59 06:59 Intake Total 1991 Output Total 2400 / 2400 Balance -408 / -408 Cumulative 11/18/24 11:17 thru 11/19/24 06:00 Intake Total 1991 Output Total 2400 Balance -408 RT Ventilator Mngmt (Last Documented) Ventilator Ordered Settings Respiratory Rate 18 11/19/24 05:42 Ventilator - PT Measurements Respiratory Rate 18 Coding Level of Care Code 05482 SUB INP/OBS CARE 2/35MIN Diagnoses ST elevation (STEMI) myocardial infarction I21.3
[2024-11-19] MEDS: MAGNESIUM SULFATE / D5W 1 GM/100 ML BAG IV SCH (08:37)
[2024-11-19] MEDS: POT PHOSPHATE MONOBASIC W/ SOD TAB PO SCH (08:38)
[2024-11-19] MEDS: POTASSIUM CHLORIDE CRTAB 20 MEQ TABCR PO STA (08:39)
[2024-11-19] MEDS: VENLAFAXINE HCL XR 75 MG CAPXR PO SCH (08:40)
[2024-11-19] MEDS: ATORVASTATIN 40 MG TAB PO SCH (08:41)
[2024-11-19] MEDS: ASPIRIN 81 MG ECTAB PO SCH (08:42)
[2024-11-19] MEDS ORDERED: ASPIRIN 325 MG ECTAB PO SCH (09:00)
[2024-11-19] MEDS: ACETAMINOPHEN 325 MG TAB PO PRN (14:29)
--- NOTE | 2024-11-19 17:41 | Cardiology Progress Note ---
Date of Service November 19, 2024 Assessment & Plan (1) Ischemic cardiomyopathy: Plan: Severely reduced EF. No significant volume overload at this time although CT suggests small basilar pleural effusions. Current heart failure regimen includes only a beta-marek. Ideally, we would be able to start her on SUKHDEEP inhibitor/ARB/Entresto as long as her blood pressure will tolerate prior to discharge. Currently blood pressure is soft so I have only added the low-dose beta-marek and we will see how she responds. I would also recommend that she be placed on SGLT2 inhibitor such as Jardiance 10 mg daily. Prior to discharge, she should be fitted for a defibrillator vest. (2) ST elevation (STEMI) myocardial infarction: Plan: Extensive LAD territory infarct from mid LAD occlusion. Some of this appeared to be older while certainly there was additional infarction on this presentation. Successful PCI of the diagonal but the LAD lesion could not be crossed. She will remain at elevated risk for mechanical complication of AL out to 72 hours post AL. Thus far, no change in her physical exam findings to suggest VSD or papillary muscle rupture. Her heart rate is above target but she did not receive her beta-marek. Her blood pressure is in the upper 80s using the cuff but as I have stated this was underestimated compared to her invasive blood pressure in the [employer] [facility]. Therefore, she should receive her beta-marek even if her systolic blood pressure is as low as 95 mmHg. She will continue with dual antiplatelet therapy using aspirin 81 mg daily and ticagrelor 90 mg p.o. twice daily. She will also remain on high intensity statin therapy. She was on 40 mg of a atorvastatin at home and this will continue. (3) Dyslipidemia: Plan: Patient is high risk. High intensity statin therapy ongoing with a atorvastatin 40 mg daily. She is at clinical targets for LDL reduction. Plan Patient will likely need to remain in the hospital over the weekend. She had a substantial myocardial infarction and her EF is quite poor. High risk for decompensation. Dr. García is on general call and will round on the patient over the weekend. Additional recommendations per his assessment. Admission and Anticipated Discharge Date Admission Date: November 18, 2024 Subjective Patient was seen in the ICU this morning. At that time she reported no further anginal chest pain although she had her chronic pain issues. She also denied any shortness of breath. Her monitor showed sinus rhythm although she was mildly tachycardic and her blood pressure was little bit low. However, I recall that the cuff pressure underestimated her invasive pressure in the [employer] [facility] likely because of her body habitus and the size of the cuff. She has no lightheadedness or dizziness with the current blood pressure. Her beta-marek was held by nursing. She had no adverse events overnight. Review of Systems Review of Systems: Negative except as per HPI Physical Exam Constitutional: WD/WN, vitals as above (Thin, older appearing than stated age) Eyes: Extraocular muscles intact ENMT: [place] is pink. Neck: I do not appreciate any JVD today. Respiratory: No wheezing or rhonchi. Clear to auscultation bilaterally. No wheezing, rhonchi, or rales. Poor air movement. Cardiovascular: Regular rhythm with mildly tachycardic rate. Grade 1-2/6 systolic murmur. S4 gallop. No edema. Radial access site is clean dry and intact. Good distal perfusion. Musculoskeletal: no cyanosis or clubbing, extremities motor strength 5/5 Neurologic: Diminished hearing. Cognition is intact. Speech is difficult to understand because of dentition but is appropriate Psychiatric: A+Ox3, euthymic affect Results & Data Vital Signs (Past 12 Hours) Vital Signs Pulse Resp BP Pulse Ox Pulse Ox O2 Del Method O2 Del Method 11/19/24 15:36 97 Room Air 11/19/24 14:30 85 29 H 95 11/19/24 14:27 99 H 17 94 11/19/24 14:18 88 11 L 97 11/19/24 14:06 96 H 28 H 96 11/19/24 14:05 92/60 L 11/19/24 13:57 92 H 28 H 96 11/19/24 13:42 89 26 H 97 11/19/24 13:33 88 30 H 11/19/24 13:24 106 H 21 11/19/24 13:15 102 H 22 100 11/19/24 13:00 94/58 L 11/19/24 13:00 94/58 L 11/19/24 13:00 94/58 L 11/19/24 13:00 94/58 L 11/19/24 13:00 94/58 L 11/19/24 13:00 91 H 28 H 98 11/19/24 12:51 88 28 H 97 11/19/24 12:30 95 H 21 100 11/19/24 12:15 95 H 27 H 97 11/19/24 12:06 100 H 19 99 11/19/24 12:00 93/51 L 11/19/24 11:57 93 H 27 H 97 11/19/24 11:54 94 H 27 H 98 11/19/24 11:42 103 H 29 H 98 11/19/24 11:36 107 H 31 H 96 11/19/24 11:15 95 H 20 97 11/19/24 11:09 83/56 L 11/19/24 11:09 98 H 32 H 97 11/19/24 11:08 79/49 L 11/19/24 10:45 107 H 29 H 11/19/24 10:42 98 H 32 H 11/19/24 10:21 96 H 33 H 11/19/24 10:19 89/47 L 11/19/24 10:06 96 H 17 11/19/24 10:01 94/63 L 11/19/24 10:00 97 H 32 H 11/19/24 09:45 90 28 H 11/19/24 09:36 94 H 39 H 11/19/24 09:24 100 H 25 H 11/19/24 09:02 92/64 L 11/19/24 09:02 92/64 L 11/19/24 08:51 88/64 L 11/19/24 08:27 96 H 24 11/19/24 08:24 102 H 21 11/19/24 08:00 95/61 L 11/19/24 08:00 97 H 21 11/19/24 08:00 90 11/19/24 07:45 90 30 H 11/19/24 07:30 Room Air 11/19/24 05:42 114 H 18 PG Care Time/CCT Total # of Minutes Spent Total Time Spent with Patient: Total time spent is greater than 50% in coordination of care (as documented) at patient's floor/unit and/or counseling patient: Coding Level of Care Code 09241 SUB INP/OBS CARE 3/50MIN Diagnoses Ischemic cardiomyopathy I25.5 ST elevation (STEMI) myocardial infarction I21.3 Dyslipidemia E78.5
--- NOTE | 2024-11-19 17:51 | Hospitalist Progress Note ---
Date of Service November 19, 2024 Assessment & Plan (1) Chest pain: (2) ST elevation (STEMI) myocardial infarction: Plan This is a 59 yr old F who has a significant PMH of COPD, HTN, nocturnal hypoxemia, HLD, hypothyroidism, GERD, fibromyalgia, hx of AMY, depression with anxiety, ptsd, hx of cdiff, tobacco use disorder who presents to ED 2/2 chest pain. #Chest Pain #ACS STEMI pt is s/p cardiac cath 11/18 with NAMAN x 1 further management per interventional cardiology c/w dapt, metoprolol, statin. f/u cardio and card rehab on dc. #HTN Per outpt review previously was not on any antihypertensive #Transaminitis AST 224, ALT 55, repeat lfts in a.m RUQ US reviewed, f/u lft, consider OP GI eval #COPD: no acute exac continue home inhalers encourage smoking cessation #Tobacco abuse encourage smoking cessation DVT ppx: hep sc FULL CODE PCP: Dr. Cruz Dispo: c/w ICU for intensive cardiac monitoring Admission and Anticipated Discharge Date Admission Date: November 18, 2024 Subjective Patient was seen and examined at bedside, chart reviewed. Patient was lying in bed, on room air, NAD, resting comfortably. Patient denies any further chest pain, reports her chronic pain at baseline. Patient denies any palpitation or shortness of breath. Patient's diet getting better per RN, has not moved bowel. Patient denies other issues. Physical Exam Physical Exam: constitutional: Thin, F, lying in bed, vitals as above, NAD, pleasant, conversing easily Head: Normocephalic, Atraumatic Eyes: PERRL, conjunctivae normal, anicteric sclerae ENMT: external ear and nose normal, oropharynx normal dry membranes, poor dentition Neck: trachea midline, no thyromegaly normal visual inspection Respiratory: normal respiratory effort, lungs clear to auscultation, no wheeze, rales, rhonchi. Cardiovascular: RRR, no murmur, no edema Vessels: no JVD or carotid bruit Chest: normal inspection of chest +RUE radial band, no evidence of hematoma Abdomen: normal bowel sounds, soft, nontender, no hepatosplenomegaly Musculoskeletal: no cyanosis or clubbing Skin: no rashes, warm and dry normal turgor Neurologic: PERRL, EOMI, accommodation nl, no face palsy, no dysarthria CN's II-XI intact bilaterally and moves all extremities Psychiatric: A+Ox3, euthymic affect Lymphatic: no cervical or axillary lymphadenopathy : deferred Results & Data Results & Data Vital Signs (Past 12 Hours) Vital Signs Pulse Resp BP Pulse Ox Pulse Ox O2 Del Method O2 Del Method 11/19/24 15:36 97 Room Air 11/19/24 14:30 85 29 H 95 11/19/24 14:27 99 H 17 94 11/19/24 14:18 88 11 L 97 11/19/24 14:06 96 H 28 H 96 11/19/24 14:05 92/60 L 11/19/24 13:57 92 H 28 H 96 11/19/24 13:42 89 26 H 97 11/19/24 13:33 88 30 H 11/19/24 13:24 106 H 21 11/19/24 13:15 102 H 22 100 11/19/24 13:00 94/58 L 11/19/24 13:00 94/58 L 11/19/24 13:00 94/58 L 11/19/24 13:00 94/58 L 11/19/24 13:00 94/58 L 11/19/24 13:00 91 H 28 H 98 11/19/24 12:51 88 28 H 97 11/19/24 12:30 95 H 21 100 11/19/24 12:15 95 H 27 H 97 11/19/24 12:06 100 H 19 99 11/19/24 12:00 93/51 L 11/19/24 11:57 93 H 27 H 97 11/19/24 11:54 94 H 27 H 98 11/19/24 11:42 103 H 29 H 98 11/19/24 11:36 107 H 31 H 96 11/19/24 11:15 95 H 20 97 11/19/24 11:09 83/56 L 11/19/24 11:09 98 H 32 H 97 11/19/24 11:08 79/49 L 11/19/24 10:45 107 H 29 H 11/19/24 10:42 98 H 32 H 11/19/24 10:21 96 H 33 H 11/19/24 10:19 89/47 L 11/19/24 10:06 96 H 17 11/19/24 10:01 94/63 L 11/19/24 10:00 97 H 32 H 11/19/24 09:45 90 28 H 11/19/24 09:36 94 H 39 H 11/19/24 09:24 100 H 25 H 11/19/24 09:02 92/64 L 11/19/24 09:02 92/64 L 11/19/24 08:51 88/64 L 11/19/24 08:27 96 H 24 11/19/24 08:24 102 H 21 11/19/24 08:00 95/61 L 11/19/24 08:00 97 H 21 11/19/24 08:00 90 11/19/24 07:45 90 30 H 11/19/24 07:30 Room Air
[2024-11-19] MEDS: METOPROLOL TARTRATE 25 MG TAB PO SCH (21:22)
[2024-11-19] MEDS: HEPARIN SOD 5,000 UNIT/0.5 ML VIAL SQ SCH (21:27)
[2024-11-20 06:05] LABS: Hemoglobin 10.8 g/dl (12.0-16.0); Mean Corpuscular Hemoglobin 29.2 pg (25.0-34.0); Mean Corpuscular Hgb Conc 32.7 g/dL (32.0-36.0); Mean Corpuscular Volume 89.2 fL (80.0-100.0); Mean Platelet Volume 11.8 fL (9.4-12.4); Platelet Count 225 K/uL (130-400); RDW Coefficient of Variation 13.2 % (11.5-14.5); RDW Standard Deviation 42.8 fL (36.4-46.3); White Blood Count 12.33 K/ul (4.8-10.8)
[2024-11-20 06:22] LABS: Albumin Level 3.2 gm/dl (3.4-5.0); BUN Creatinine Ratio 18.8 (10-20); Bilirubin Direct 0.1 mg/dl (0-0.2); Bilirubin,Total 0.5 mg/dl (0.2-1.0); Calcium 7.7 mg/dl (8.6-10.3); Creatinine Clr Calc Pharmacy 89.8 ml/min; Magnesium 1.9 mg/dl (1.7-2.4); Phosphorus 3.4 mg/dl (2.5-4.9); Potassium 4.2 mmol/L (3.5-5.1); Total Protein 5.7 gm/dl (6.0-8.3)
[2024-11-20] MEDS: CALCIUM CARBONATE 500 MG CHEWABLE TAB PO PRN (09:27)
[2024-11-20] MEDS: FAMOTIDINE 20 MG TAB PO PRN (09:28)
--- NOTE | 2024-11-20 12:28 | Hospitalist Progress Note ---
Date of Service November 20, 2024 Assessment & Plan (1) Chest pain: (2) ST elevation (STEMI) myocardial infarction: Plan This is a 59 yr old F who has a significant PMH of COPD, HTN, nocturnal hypoxemia, HLD, hypothyroidism, GERD, fibromyalgia, hx of AMY, depression with anxiety, ptsd, hx of cdiff, tobacco use disorder who presents to ED 2/2 chest pain. #Chest Pain #ACS STEMI pt is s/p cardiac cath 11/18 with NAMAN x 1 further management per interventional cardiology c/w dapt, metoprolol, statin. f/u cardio and card rehab on dc. #HTN Per outpt review previously was not on any antihypertensive #Transaminitis AST 224, ALT 55, repeat lfts in a.m RUQ US reviewed, LFT down trended, repeat LFT in a week of dc at PCP office to ensure resolution #COPD: no acute exac continue home inhalers encourage smoking cessation #Tobacco abuse encourage smoking cessation DVT ppx: hep sc FULL CODE PCP: Dr. Cruz Dispo: per clearance from cardio. Admission and Anticipated Discharge Date Admission Date: November 18, 2024 Subjective Patient was seen and examined at bedside, chart reviewed. Patient was lying in bed, on room air, NAD, resting comfortably. Patient denies any further chest pain, reports her chronic pain at baseline. Patient denies any palpitation or shortness of breath. Patient's eating ok and moved bowel in AM. Pt reported stomach upset in AM, relieved w/ tums. Patient denies other issues. Physical Exam Physical Exam: constitutional: Thin, F, lying in bed, vitals as above, NAD, pleasant, conversing easily Head: Normocephalic, Atraumatic Eyes: PERRL, conjunctivae normal, anicteric sclerae ENMT: external ear and nose normal, oropharynx normal dry membranes, poor dentition Neck: trachea midline, no thyromegaly normal visual inspection Respiratory: normal respiratory effort, lungs clear to auscultation, no wheeze, rales, rhonchi. Cardiovascular: RRR, no murmur, no edema Vessels: no JVD or carotid bruit Chest: normal inspection of chest Abdomen: normal bowel sounds, soft, nontender, no hepatosplenomegaly Musculoskeletal: no cyanosis or clubbing Skin: no rashes, warm and dry normal turgor Neurologic: PERRL, EOMI, accommodation nl, no face palsy, no dysarthria CN's II-XI intact bilaterally and moves all extremities Psychiatric: A+Ox3, euthymic affect Lymphatic: no cervical or axillary lymphadenopathy : deferred Results & Data Results & Data Vital Signs (Past 12 Hours) Vital Signs Pulse Resp BP Pulse Ox O2 Del Method 11/20/24 10:00 91/56 L 11/20/24 09:42 82 29 H 95 11/20/24 09:33 92 H 18 97 11/20/24 09:09 95 H 16 11/20/24 08:45 92/56 L 11/20/24 08:45 89 30 H 95 11/20/24 08:36 87 27 H 96 11/20/24 08:35 93/58 L 11/20/24 08:33 84/43 L 11/20/24 08:00 91 H 16 95 11/20/24 08:00 82 11/20/24 07:45 93 H 25 H 96 11/20/24 07:45 91/59 L 11/20/24 07:31 97/53 L 11/20/24 07:30 Room Air 11/20/24 07:15 94 H 22 96 11/20/24 07:15 86/62 L 11/20/24 07:15 86/62 L 11/20/24 07:03 91/62 L 11/20/24 07:03 91/62 L 11/20/24 07:03 88 26 H 96 11/20/24 07:00 80/62 L 11/20/24 06:48 84 30 H 95 11/20/24 06:47 93/60 L 11/20/24 06:33 93 H 24 96 11/20/24 06:30 95/59 L 11/20/24 06:30 95/59 L 11/20/24 06:30 95/59 L 11/20/24 06:24 87 24 96 11/20/24 06:15 92/59 L 11/20/24 06:09 86 24 96 11/20/24 06:00 91/60 L 11/20/24 06:00 91/60 L 11/20/24 05:54 89 24 97 11/20/24 05:45 91/59 L 11/20/24 05:45 83 24 95 11/20/24 05:00 96/58 L 11/20/24 05:00 96/58 L 11/20/24 05:00 96/58 L 11/20/24 05:00 85 24 97 11/20/24 04:45 89 24 95 11/20/24 04:45 89/62 L 11/20/24 04:45 89/62 L 11/20/24 04:30 93/60 L 11/20/24 04:30 93/60 L 11/20/24 04:30 87 16 95 11/20/24 04:15 93/62 L 11/20/24 04:12 94/59 L 11/20/24 04:12 97 H 18 95 11/20/24 04:09 89 22 95 11/20/24 03:45 85 19 96 11/20/24 03:00 81/60 L 11/20/24 03:00 81/60 L 11/20/24 03:00 81/60 L 11/20/24 03:00 90 15 96 11/20/24 02:54 93 H 23 96 11/20/24 02:18 97 H 23 95 11/20/24 01:32 81 15 96 11/20/24 01:02 81 21 97 11/20/24 01:00 94/61 L 11/20/24 01:00 94/61 L 11/20/24 00:59 86 21 95 11/20/24 00:36 84 18 96
--- NOTE | 2024-11-20 13:20 | Cardiology Progress Note ---
Date of Service November 20, 2024 Assessment & Plan (1) ST elevation (STEMI) myocardial infarction: (2) Ischemic cardiomyopathy: (3) Dyslipidemia: (4) Hypotension: (5) Tobacco abuse: (6) CAD (coronary artery disease): (7) S/P coronary artery stent placement: (8) Ventricular tachycardia: Plan ASSESSMENT/PLAN: 1. STEMI: Occluded mid LAD that was unable to be intervened upon. Underwent PCI of D1. No further angina. Continue dual antiplatelet therapy. Aspirin 81 mg daily indefinitely. Brilinta for at least 1 year. High intensity statin therapy. Beta-marek when blood pressure allows. Cardiac rehab. 2. Ischemic cardiomyopathy: LV systolic function is severely reduced. She appears euvolemic. Initiate goal-directed medical therapy as able. Currently, beta-marek has been held due to hypotension. Beta-marek (metoprolol succinate on discharge) when able and will change hold parameters to hold for systolic blood pressure less than 90 mmHg, or if she should have symptomatic hypotension. Would then recommend ARNI if affordable and otherwise SUKHDEEP inhib itor, when blood pressure allows. Recommend SGLT2 inhibitor and mineralocorticoid receptor antagonist when blood pressure allows. These medications have not yet been initiated due to hypotension. LifeVest is pending but has been ordered by Dr. Hernandez. If after 40 days, EF remains <35%, with then recommend ICD for primary prevention. Patient is agreeable if indicated. 3. CAD s/p Diag PCI: Plan as above with dual antiplatelet therapy and risk factor modification. 4. Ventricular tachycardia: Nonsustained on 11/19/2024. Continue telemetry. Beta-marek as above. 5. Tobacco abuse: Smoking cessation recommended. 6. Hypotension: Asymptomatic. Requested that nursing staff check a manual blood pressure to see if it correlates well with automatic blood pressure cuff. Initiate beta-marek if systolic blood pressure 90 or above as noted. 7. Dyslipidemia: LDL elevated in the setting of CAD. Increase atorvastatin to 80 mg daily. 8. Disposition: Cardiology will continue to follow. Follow-up with Dr. Hernandez in the outpatient setting. Cardiac rehab. Patient care communicated with Dr. Taylor of the critical care team. Addendum: Was notified by nursing staff at approximately 3:30 PM that she was having chest discomfort. ECG was performed which demonstrated sinus rhythm with lateral infarct, residual ST elevation, ST depression inferolaterally. I promptly r eturned to the ICU. She was having 6 out of 10 chest discomfort and stated that it has worsened. It is left-sided and the same as her angina when she presented with STEMI. Her blood pressure remains systolic 90s and oxygen saturation was normal on room air. Discussed and recommended performing another cardiac catheterization. Risk and benefits were discussed with her in detail. She was agreeable. Code heart alert called to notify the on-call [facility] team. Coronary angiography images were personally reviewed from her initial catheterization on 11/18/2024. There was OLGA I flow in the LAD at the completion of the case however the lesion was unable to be successfully crossed. She underwent PCI of diagonal. Her previously placed stent can be evaluated and if open, possible further attempt at LAD PCI, if deemed appropriate by interventional cardiology. Discussed presentation and patient history with Dr. Darden, the on-call lead welder. Also discussed with Dr. Taylor of the ICU and Dr. Perez of the primary hospitalist service. Per patient request, I contacted her stepfather, Harsha, via telephone to update him on this afternoon's events and plan of care. I remained with patient in the ICU and helped escorted to the [facility]. Spoke again with Dr. Darden. Appreciate his assistance. Her previously placed diagonal stent was patent. He performed the procedure via the right femoral artery and was able to cross the severely stenotic LAD lesion and she underwent PCI x 2. Dr. Taylor of the critical care team and Dr. Perez of the primary hospitalist service were notified. Patient's family member, Harsha Garnica, was updated via telephone. Critical care time 89 minutes in addition to 20 minutes (total 109 minutes) from initial visit earlier this afternoon. Admission and Anticipated Discharge Date Admission Date: November 18, 2024 Subjective Patient was seen earlier this afternoon. She denies chest pain, shortness of breath, syncope, near syncope, palpitations, edema, or bleeding. She denies orthopnea. She has ambulated in the hallway and tolerated it. Despite rather persistent mild hypotension, she denies lightheadedness or other hypotensive symptoms. She was unaccompanied. Physical Exam Physical Exam: Gen.: No acute distress. Alert and oriented. HEENT: Anicteric sclera. Neck: No JVD. Cardiac: Regular. Normal S1-S2. No murmurs, rubs, or gallops. Pulmonary: Clear to auscultation bilaterally without wheezes, rales, or rhonchi. Abdomen: Soft, nontender, nondistended, with normoactive bowel sounds. No bruits noted. Extremities: 2+ radial pulses bilaterally. Right radial cath site is clean, dry, and intact without erythema or discharge. 2+ posterior tibialis pulses bilaterally. No edema or cyanosis. Results & Data Vital Signs (Past 12 Hours) Vital Signs Pulse Resp BP Pulse Ox O2 Del Method 11/20/24 10:00 91/56 L 11/20/24 09:42 82 29 H 95 11/20/24 09:33 92 H 18 97 11/20/24 09:09 95 H 16 11/20/24 08:45 92/56 L 11/20/24 08:45 89 30 H 95 11/20/24 08:36 87 27 H 96 11/20/24 08:35 93/58 L 11/20/24 08:33 84/43 L 11/20/24 08:00 91 H 16 95 11/20/24 08:00 82 11/20/24 07:45 93 H 25 H 96 11/20/24 07:45 91/59 L 11/20/24 07:31 97/53 L 11/20/24 07:30 Room Air 11/20/24 07:15 94 H 22 96 11/20/24 07:15 86/62 L 11/20/24 07:15 86/62 L 11/20/24 07:03 91/62 L 11/20/24 07:03 91/62 L 11/20/24 07:03 88 26 H 96 11/20/24 07:00 80/62 L 11/20/24 06:48 84 30 H 95 11/20/24 06:47 93/60 L 11/20/24 06:33 93 H 24 96 11/20/24 06:30 95/59 L 11/20/24 06:30 95/59 L 11/20/24 06:30 95/59 L 11/20/24 06:24 87 24 96 11/20/24 06:15 92/59 L 11/20/24 06:09 86 24 96 11/20/24 06:00 91/60 L 11/20/24 06:00 91/60 L 11/20/24 05:54 89 24 97 11/20/24 05:45 91/59 L 11/20/24 05:45 83 24 95 11/20/24 05:00 96/58 L 11/20/24 05:00 96/58 L 11/20/24 05:00 96/58 L 11/20/24 05:00 85 24 97 11/20/24 04:45 89 24 95 11/20/24 04:45 89/62 L 11/20/24 04:45 89/62 L 11/20/24 04:30 93/60 L 11/20/24 04:30 93/60 L 11/20/24 04:30 87 16 95 11/20/24 04:15 93/62 L 11/20/24 04:12 94/59 L 11/20/24 04:12 97 H 18 95 11/20/24 04:09 89 22 95 11/20/24 03:45 85 19 96 11/20/24 03:00 81/60 L 11/20/24 03:00 81/60 L 11/20/24 03:00 81/60 L 11/20/24 03:00 90 15 96 11/20/24 02:54 93 H 23 96 11/20/24 02:18 97 H 23 95 11/20/24 01:32 81 15 96 Intake & Output 11/18/24 11/19/24 11/20/24 11/21/24 06:59 06:59 06:59 07:59 Intake Total 1991 2482 / 2482 525 / 525 Output Total 2400 / 2850 1316 / 1316 601 / 601 Balance -408 / -583 1166 / 1166 -76 / -76 Weight 141 lb 5.061 oz 145 lb 8.081 oz Laboratory Results Laboratory Results - last 24 hr 11/19/24 11/19/24 11/20/24 16:09 21:31 05:20 WBC 12.33 H RBC 3.70 L Hgb 10.8 L Hct 33.0 L MCV 89.2 MCH 29.2 MCHC 32.7 RDW Std Deviation 42.8 RDW Coeff of Naeem 13.2 Plt Count 225 MPV 11.8 Sodium 136 Potassium 4.2 Chloride 106 Carbon Dioxide 31 Anion Gap -1 L BUN 12 Creatinine 0.64 Est Cr Clr Drug Dosing 89.8 eGFR 100.48 BUN/Creatinine Ratio 18.8 Glucose 113 H POC Glucose 103 H 114 H Calcium 7.7 L Phosphorus 3.4 D Magnesium 1.9 Total Bilirubin 0.5 D Direct Bilirubin 0.1 AST 52 H ALT 43 Alkaline Phosphatase 74 Total Protein 5.7 L Albumin 3.2 L Diagnostic Findings Telemetry personally reviewed. Predominantly sinus rhythm. There has been rare nonsustained atrial tachycardia and a 15 beat run of ventricular tachycardia on 11/19/2024 at 1:39 AM. Labs reviewed and notable for mild anemia, mild leukocytosis but improving, stable renal function, normal potassium, improved transaminase levels, normal TSH, mildly elevated LDL in the setting of CAD. Peak high-sensitivity troponin 39,434. Echo images personally reviewed from 11/18/2024: Severely reduced LV systolic function. ECG personally reviewed 11/18/2024 at 1344: Sinus rhythm 82 bpm. Anteroseptal infarct. Cath report reviewed. Chart reviewed. Medications Administered Current Inpatient Medications Acetaminophen (Acetaminophen 325 Mg Tab) 650 mg PO Q4H PRN PRN Reason: MILD Pain (Scale 1,2,3) Stop: 12/18/24 13:29 Last Admin: 11/19/24 21:25 Dose: 650 mg Albuterol (Albuterol Hfa 8 Gm Inhaler) 2 puffs INH Q4H PRN PRN Reason: Shortness Of Breath Or Wheezing Stop: 12/18/24 15:35 Aspirin (Aspirin 81 Mg Ectab) 81 mg PO DAILY [facility] Stop: 12/19/24 08:59 Last Admin: 11/20/24 08:54 Dose: 81 mg Atorvastatin Calcium (Atorvastatin 40 Mg Tab) 40 mg PO QAM [facility] Stop: 12/19/24 08:59 Last Admin: 11/20/24 08:53 Dose: 40 mg Calcium Carbonate (Calcium Carbonate 500 Mg Chewable Tab) 1,000 mg PO Q8H PRN PRN Reason: Indigestion Stop: 12/20/24 09:05 Last Admin: 11/20/24 09:27 Dose: 1,000 mg Famotidine (Famotidine 20 Mg Tab) 20 mg PO BID PRN PRN Reason: acid reflux Stop: 12/20/24 09:14 Last Admin: 11/20/24 09:28 Dose: 20 mg Fluticasone/Vilanterol (Fluticasone/Vilanterol 200/25mcg 14 Puffs/Inhaler) 1 puffs INH DAILY [facility] Stop: 12/18/24 20:59 Last Admin: 11/20/24 08:53 Dose: 1 puffs Heparin Sodium (Porcine) (Heparin Sod 5,000 Unit/0.5 Ml Vial) 5,000 units SQ Q12 [facility] Stop: 12/19/24 20:59 Last Admin: 11/20/24 08:55 Dose: 5,000 units Levothyroxine Sodium (Levothyroxine Sodium 75 Mcg Tablet) 75 mcg PO DAILYBB [facility] Stop: 12/19/24 06:29 Last Admin: 11/20/24 05:58 Dose: 75 mcg Metoprolol Tartrate (Metoprolol Tartrate 25 Mg Tab) 12.5 mg PO BID [facility] Stop: 12/19/24 20:59 Last Admin: 11/20/24 08:41 Dose: Not Given Miscellaneous (Icu Protocol For Hyperglycemia) 1 each N/A ACHS [facility] Stop: 11/20/24 16:29 Last Admin: 11/20/24 12:55 Dose: Not Given Pregabalin (Pregabalin 75 Mg Cap) 225 mg PO BID [facility] Stop: 12/18/24 20:59 Last Admin: 11/20/24 08:55 Dose: 225 mg Quetiapine Fumarate (Quetiapine Fumarate 25 Mg Tablet) 25 mg PO Q8H PRN PRN Reason: Anxiety Stop: 12/18/24 15:35 Ticagrelor (Ticagrelor 90 Mg Tab) 90 mg PO BID [facility] Stop: 12/19/24 00:00 Last Admin: 11/20/24 08:56 Dose: 90 mg Venlafaxine HCl (Venlafaxine Hcl Xr 75 Mg Capxr) 75 mg PO DAILY [facility] Stop: 12/19/24 08:59 Last Admin: 11/20/24 08:53 Dose: 75 mg PG Care Time/CCT Total # of Minutes Spent Total Time Spent with Patient: Total time spent is greater than 50% in coordination of care (as documented) at patient's floor/unit and/or counseling patient: Critical Care Time: Yes Total Critical Care Time: 89 109 minutes Coding Level of Care Code 54539 CRITICAL CARE 1ST 30-74M Diagnoses ST elevation (STEMI) myocardial infarction I21.3 Ischemic cardiomyopathy I25.5 Dyslipidemia E78.5 Hypotension I95.9 Tobacco abuse Z72.0 CAD (coronary artery disease) I25.10 S/P coronary artery stent placement Z95.5 Ventricular tachycardia I47.20 Additional Codes Critical Care Time - Critical Care Time: Yes ([id number]) Comment [id number] and [id number]
[2024-11-20] MEDS: HEPARIN (PORCINE) 1000 UNIT/ML 10 ML (CATH LAB USE ONLY) IV ONE (16:12)
--- NOTE | 2024-11-20 16:17 | Pre Anesthesia Assessment ---
Date of Service November 20, 2024 Pre Sedation Assessment Vital Signs Temp Pulse Resp BP Pulse Ox O2 Del Method 11/20/24 10:00 91/56 L 11/20/24 09:42 82 29 H 95 11/20/24 09:33 92 H 18 97 11/20/24 09:09 95 H 16 11/20/24 08:45 92/56 L 11/20/24 08:45 89 30 H 95 11/20/24 08:36 87 27 H 96 11/20/24 08:35 93/58 L 11/20/24 08:33 84/43 L 11/20/24 08:00 91 H 16 95 11/20/24 08:00 82 11/20/24 07:45 93 H 25 H 96 11/20/24 07:45 91/59 L 11/20/24 07:31 97/53 L 11/20/24 07:30 Room Air 11/20/24 07:15 94 H 22 96 11/20/24 07:15 86/62 L 11/20/24 07:15 86/62 L 11/20/24 07:03 91/62 L 11/20/24 07:03 91/62 L 11/20/24 07:03 88 26 H 96 11/20/24 07:00 80/62 L 11/20/24 06:48 84 30 H 95 11/20/24 06:47 93/60 L 11/20/24 06:33 93 H 24 96 11/20/24 06:30 95/59 L 11/20/24 06:30 95/59 L 11/20/24 06:30 95/59 L 11/20/24 06:24 87 24 96 11/20/24 06:15 92/59 L 11/20/24 06:09 86 24 96 11/20/24 06:00 91/60 L 11/20/24 06:00 91/60 L 11/20/24 05:54 89 24 97 11/20/24 05:45 91/59 L 11/20/24 05:45 83 24 95 11/20/24 05:00 96/58 L 11/20/24 05:00 96/58 L 11/20/24 05:00 96/58 L 11/20/24 05:00 85 24 97 11/20/24 04:45 89 24 95 11/20/24 04:45 89/62 L 11/20/24 04:45 89/62 L 11/20/24 04:30 93/60 L 11/20/24 04:30 93/60 L 11/20/24 04:30 87 16 95 11/20/24 04:15 93/62 L 11/20/24 04:12 94/59 L 11/20/24 04:12 97 H 18 95 11/20/24 04:09 89 22 95 11/20/24 03:45 85 19 96 11/20/24 03:00 81/60 L 11/20/24 03:00 81/60 L 11/20/24 03:00 81/60 L 11/20/24 03:00 90 15 96 11/20/24 02:54 93 H 23 96 11/20/24 02:18 97 H 23 95 11/20/24 01:32 81 15 96 11/20/24 01:02 81 21 97 11/20/24 01:00 94/61 L 11/20/24 01:00 94/61 L 11/20/24 00:59 86 21 95 11/20/24 00:36 84 18 96 11/20/24 00:08 101/64 11/20/24 00:07 36.6 C 11/20/24 00:00 89 11/19/24 23:57 79 24 100 11/19/24 23:03 74 18 95 11/19/24 23:00 87/57 L 11/19/24 23:00 87/57 L 11/19/24 22:48 83 23 94 11/19/24 22:33 78 23 94 11/19/24 22:30 90/58 L 11/19/24 22:30 90/58 L 11/19/24 22:21 84 17 95 11/19/24 21:21 80 23 93 11/19/24 21:20 36.9 C 11/19/24 21:19 90/57 L 11/19/24 21:19 90/57 L 11/19/24 21:19 90/57 L 11/19/24 21:02 90/51 L 11/19/24 20:51 82 21 98 11/19/24 20:39 78 22 97 11/19/24 20:02 84/59 L 11/19/24 20:02 84/59 L 11/19/24 20:02 84/59 L 11/19/24 20:00 85 20 97 11/19/24 20:00 85/61 L 11/19/24 19:33 83 17 98 11/19/24 19:00 85/59 L 11/19/24 18:57 80 26 H 98 11/19/24 18:02 84/65 L 11/19/24 18:00 84 24 97 11/19/24 18:00 85/62 L 11/19/24 17:00 93 H 24 95 Cardiovascular RRR, no murmur, no edema Respiratory normal respiratory effort, lungs clear to auscultation Pre-Sedation Airway Assessment Smoking Status: Current every day smoker Mallampati Class: II ASA: ASA3 NPO Status Date of Last Intake of Fluids: 11/20/24 Time of Last Intake of Fluids: 12:00 Date of Last Intake of Solid Food: 11/20/24 Time of Last Intake of Solid Foods: 12:00 Procedure Planning Contraindications for Sedation: none Current Medications Reviewed: Yes Notes The planned sedation has been discussed with the patient. Informed Consent was obtained. I have identified the patient, determined the appropriateness of sedation and have assessed the patient immediately prior to the procedure. All medicine(s) and interventions are by my order.
[2024-11-20] MEDS: HEPARIN (PORCINE) 1000 UNIT/ML 10 ML (CATH LAB USE ONLY) ONE (16:48)
[2024-11-20] MEDS: NITROGLYCERIN/D5W 100MCG/ML 20ML SYR ONE (16:48)
[2024-11-20] MEDS: niCARdipine HCL INJ 2.5 MG/ML 10 ML AMP ONE (16:48)
[2024-11-20] MEDS: MIDAZOLAM HCL 1 MG/ML 2ML VIAL ONE (16:48)
[2024-11-20] MEDS: PHENYLEPHRINE 100MCG/ML 5ML SYR ONE ×2 (16:48)
[2024-11-20] MEDS: fentaNYL citrate PF 100 MCG/2 ML VIAL ONE (16:48)
[2024-11-20] MEDS: OPTIRAY 350 ONE (16:49)
--- NOTE | 2024-11-20 16:52 | Post Anesthesia Assessment ---
Date of Service November 20, 2024 Post Sedation Assessment Vital Signs Temp Pulse Resp BP Pulse Ox O2 Del Method 11/20/24 10:00 91/56 L 11/20/24 09:42 82 29 H 95 11/20/24 09:33 92 H 18 97 11/20/24 09:09 95 H 16 11/20/24 08:45 92/56 L 11/20/24 08:45 89 30 H 95 11/20/24 08:36 87 27 H 96 11/20/24 08:35 93/58 L 11/20/24 08:33 84/43 L 11/20/24 08:00 91 H 16 95 11/20/24 08:00 82 11/20/24 07:45 93 H 25 H 96 11/20/24 07:45 91/59 L 11/20/24 07:31 97/53 L 11/20/24 07:30 Room Air 11/20/24 07:15 94 H 22 96 11/20/24 07:15 86/62 L 11/20/24 07:15 86/62 L 11/20/24 07:03 91/62 L 11/20/24 07:03 91/62 L 11/20/24 07:03 88 26 H 96 11/20/24 07:00 80/62 L 11/20/24 06:48 84 30 H 95 11/20/24 06:47 93/60 L 11/20/24 06:33 93 H 24 96 11/20/24 06:30 95/59 L 11/20/24 06:30 95/59 L 11/20/24 06:30 95/59 L 11/20/24 06:24 87 24 96 11/20/24 06:15 92/59 L 11/20/24 06:09 86 24 96 11/20/24 06:00 91/60 L 11/20/24 06:00 91/60 L 11/20/24 05:54 89 24 97 11/20/24 05:45 91/59 L 11/20/24 05:45 83 24 95 11/20/24 05:00 96/58 L 11/20/24 05:00 96/58 L 11/20/24 05:00 96/58 L 11/20/24 05:00 85 24 97 11/20/24 04:45 89 24 95 11/20/24 04:45 89/62 L 11/20/24 04:45 89/62 L 11/20/24 04:30 93/60 L 11/20/24 04:30 93/60 L 11/20/24 04:30 87 16 95 11/20/24 04:15 93/62 L 11/20/24 04:12 94/59 L 11/20/24 04:12 97 H 18 95 11/20/24 04:09 89 22 95 11/20/24 03:45 85 19 96 11/20/24 03:00 81/60 L 11/20/24 03:00 81/60 L 11/20/24 03:00 81/60 L 11/20/24 03:00 90 15 96 11/20/24 02:54 93 H 23 96 11/20/24 02:18 97 H 23 95 11/20/24 01:32 81 15 96 11/20/24 01:02 81 21 97 11/20/24 01:00 94/61 L 11/20/24 01:00 94/61 L 11/20/24 00:59 86 21 95 11/20/24 00:36 84 18 96 11/20/24 00:08 101/64 11/20/24 00:07 36.6 C 11/20/24 00:00 89 11/19/24 23:57 79 24 100 11/19/24 23:03 74 18 95 11/19/24 23:00 87/57 L 11/19/24 23:00 87/57 L 11/19/24 22:48 83 23 94 11/19/24 22:33 78 23 94 11/19/24 22:30 90/58 L 11/19/24 22:30 90/58 L 11/19/24 22:21 84 17 95 11/19/24 21:21 80 23 93 11/19/24 21:20 36.9 C 11/19/24 21:19 90/57 L 11/19/24 21:19 90/57 L 11/19/24 21:19 90/57 L 11/19/24 21:02 90/51 L 11/19/24 20:51 82 21 98 11/19/24 20:39 78 22 97 11/19/24 20:02 84/59 L 11/19/24 20:02 84/59 L 11/19/24 20:02 84/59 L 11/19/24 20:00 85 20 97 11/19/24 20:00 85/61 L 11/19/24 19:33 83 17 98 11/19/24 19:00 85/59 L 11/19/24 18:57 80 26 H 98 11/19/24 18:02 84/65 L 11/19/24 18:00 84 24 97 11/19/24 18:00 85/62 L 11/19/24 17:00 93 H 24 95 Recovery Score Activity: Moves 4 extremities Respiration: Deep Breath/Cough Circulation: +/-20% PreAnes Value Consciousness: Fully Awake Oxygen Saturation: > 92% On Room Air Post Anesthesia Score: 10 Discharge Sedation Level of Care: Phase I Post Sedation Plan On clinical assessment, the patient appears to have tolerated the sedation without complications. Patient is recovering as anticipated. Patient will continue to be monitored by nursing and may be discharged when sedation discharge criteria are met per below protocol. Upon Completions of procedure up to 15 minutes continue every 5 minute vital signs and the P.A.R. score; then discharge to a Phase I or Fast Track to Phase II per the following guidelines: * Discharge Patient to appropriate Phase II area if PAR is 8 or greater or return to pre- procedure baseline. The post - procedure orders will be as directed. * If PAR score is less than 8 or not return to pre-procedure baseline then patient will follow Phase I monitoring till PAR is reached for Phase II. The Phase I may be done in procedure room or may call to secure a Phase I area. * If naloxone or flumazenil are used for reversal, hold in Phase I for boris nued monitoring from when last reversal dose was given for a minimum of 60 minutes or longer pending the nurse and/or physician discretion of patient condition before discharge to Phase II. Please call the Sedation Physician to re-evaluate and complete post-note for discharge to Phase II area. Do NOT discharge from procedure sedation or Phase 1 until post- sedation evaluation note is complete by procedure /sedation MD Sedation Discharge Instructions to be given to the patient at discharge to home.
--- NOTE | 2024-11-20 16:59 | Cardiac Catheterization ---
Cardiac Cath Procedure Full Procedure Date November 20, 2024 Pre-Procedure Diagnosis Pre-Procedure Diagnosis: STEMI AUC Score AUC Score: 09 Post-Procedure Diagnosis Post-Procedure Diagnosis: Severe CAD and Successful PCI Procedure(s) Performed Procedure(s) Performed: Coronary Angiography and Drug Eluting Stent Promotions Coordinator Krishan Darden MD Estimated Blood Loss Estimated Blood Loss: 10 cc Medication(s) Medication(s): Fentanyl, Heparin, Lidocaine 1% and Nitroglycerin Summary of Findings 100% occluded proximal LAD Thrombotic lesion, culprit lesion S/P PCI with 2 NAMAN Hemodynamics Rest Ao:: 79/40 mmHg Final Ao: 92/60 mmHg LV: Not applicable Recommendations Recommendations: Medical Therapy and/or Counseling Radiation Exposure (mGy) 1039 Contrast (mls) 90 Anesthesia 2 mg Versed, 75 mcg fentanyl, 25 mg Benadryl IV. Start time 1622, end 1655 Procedural Complication(s) None Disposition ICU I attest to the content of the Intraoperative Record and any orders documented therein. Any exceptions are noted below. ACC Data: Brick Layer Cardiac Status Clinical evaluation leading to the procedure CAD Presenation: STEMI Coronary Anatomy Left Main (% Stenosis): Normal LAD (% Stenosis): Proximal (100%) Circumflex (% Stenosis): Normal Diagnostic Physicians Name: Krishan Darden MD Closure Device Closure Device: None-Manual Hold (PERCLOSE PROGLIDE) Recommendations: Medical Therapy and/or Counseling Lesion Segment Name: Proximal to mid LAD Culprit Artery: Yes Stenosis Prior to Rx (%): 100 Chronic Total Occlusion: No Pre-Procedure OLGA Flow: 0 Previously Treated Lesion: No Lesion Complexity: High/C Lesion Length (mm): 54 Thrombus Present: Yes Bifurcation Lesion: Yes Guidewire Across Lesion: Yes
--- NOTE | 2024-11-20 20:31 | Critical Care Progress Note ---
Date of Service November 20, 2024 Assessment & Plan (1) S/P coronary artery stent placement: (2) CAD (coronary artery disease): (3) ST elevation (STEMI) myocardial infarction: (4) Ischemic cardiomyopathy: (5) Hypotension: Plan Impression: 59-year-old female with history of chronic pain issues and methamphetamine abuse here with ST elevation myocardial infarction status post drug-eluting stent to the LAD 11/18/2024. Echo shows depressed ejection fraction with regional wall motion abnormalities as well as moderate MR. CT of the chest shows multiple rib fractures. She developed chest pain on 11/20/2024. Underwent repeat cardiac catheterization with placement of NAMAN x2 to proximal LAD. This was 100% occluded. Plan: Acute coronary syndrome: Status post stent placement. Continue cardiology management. Dual antiplatelet agents. Metoprolol as tolerated by blood pressur e and heart rate. Her course has been complicated by some hypotension which limits titration of GDMT. Will need defibrillator vest prior to discharge. Patient will need cardiac rehab and follow-up with the heart failure clinic. Additional recommendations per cardiology. Disposition: ICU Admission and Anticipated Discharge Date Admission Date: November 18, 2024 Subjective 59-year-old female with history of chronic pain issues and methamphetamine abuse here with ST elevation myocardial infarction status post drug-eluting stent to the LAD 11/18/2024. Echo shows depressed ejection fraction with regional wall motion abnormalities as well as moderate MR. CT of the chest shows multiple rib fractures. Course complicated by hypotension. She developed chest pain on 11/20/2024. Underwent repeat cardiac catheterization with placement of NAMAN x2 to proximal LAD. This was 100% occluded. She is admitted to ICU for continuation of care. Patient is in no acute distress. Resting comfortably on my evaluation. She has no complaints. Chest pain has resolved. Review of Systems Review of Systems: All systems reviewed & are unremarkable except as noted in Subjective Physical Exam Constitutional: well developed; no acute distress Eyes: PERRL ENMT: Mouth: no oropharynx abnormality Neck: trachea midline, no thyromegaly Respiratory: normal respiratory effort, lungs clear to auscultation Cardiovascular: Rate/Rhythm: regular rate and regular rhythm Heart Sounds: + murmur Vessels: no JVD and no carotid bruit Extremities: normal capillary refill; no edema Gastrointestinal (Abdomen): normal bowel sounds, soft, nontender, no hepatosplenomegaly Skin: no rashes, warm and dry Femoral procedural site is C/D/I without hematoma Neurologic: PERRL, EOMI, accommodation nl, no face palsy, no dysarthria Results & Data Results & Data Vital Signs (Past 12 Hours) Vital Signs Pulse Resp BP Pulse Ox 11/20/24 19:21 85 17 11/20/24 19:15 97/61 L 11/20/24 19:12 84 19 11/20/24 19:09 81 31 H 11/20/24 19:00 102/61 11/20/24 18:45 92/64 L 11/20/24 18:33 78 29 H 11/20/24 18:31 99/62 L 11/20/24 18:30 77 22 11/20/24 18:21 80 21 11/20/24 18:15 103/66 11/20/24 18:03 80 24 11/20/24 18:00 90/61 L 11/20/24 17:57 81 25 H 11/20/24 17:45 95/61 L 11/20/24 17:42 79 19 11/20/24 17:30 73 24 11/20/24 17:15 80 22 11/20/24 17:12 75 17 11/20/24 15:53 90/66 L 11/20/24 15:53 90/66 L 11/20/24 15:42 81 22 97 11/20/24 15:30 82 18 100 11/20/24 15:28 95/57 L 11/20/24 15:28 95/57 L 11/20/24 14:51 81 26 H 11/20/24 14:39 84 20 11/20/24 14:09 81 20 98 11/20/24 14:01 93/66 L 11/20/24 13:51 87 18 11/20/24 13:30 80 9 L 11/20/24 13:09 81 16 11/20/24 13:07 92/59 L 11/20/24 13:07 92/59 L 11/20/24 12:36 82 28 H 11/20/24 12:06 82 28 H 100 11/20/24 12:00 88/58 L 11/20/24 11:44 91/63 L 11/20/24 11:44 91/63 L 11/20/24 11:03 86 14 97 11/20/24 11:00 93/59 L 11/20/24 11:00 79 30 H 97 11/20/24 10:33 88 23 98 11/20/24 10:27 75 27 H 96 11/20/24 10:00 91/56 L 11/20/24 09:42 82 29 H 95 11/20/24 09:33 92 H 18 97 11/20/24 09:09 95 H 16 11/20/24 08:45 92/56 L 11/20/24 08:45 89 30 H 95 11/20/24 08:36 87 27 H 96 11/20/24 08:35 93/58 L 11/20/24 08:33 84/43 L Coding Level of Care Code PROLONG IP/OBS E/M EA 15 MIN Diagnoses S/P coronary artery stent placement Z95.5 CAD (coronary artery disease) I25.10 ST elevation (STEMI) myocardial infarction I21.3 Ischemic cardiomyopathy I25.5 Hypotension I95.9 Time Spent (min) 15
[2024-11-20] MEDS: QUEtiapine FUMARATE 25 MG TABLET PO PRN (20:56)
[2024-11-20] MEDS: COUGH DROP (SUGAR FREE) LOZ 24 LOZ/1 BOX BUCCAL PRN (21:11)
--- NOTE | 2024-11-20 22:46 | Electrocardiogram Report ---
Test Reason : Blood Pressure : */* mmHG Vent. Rate : 82 BPM Atrial Rate : 82 BPM P-R Int : 128 ms QRS Dur : 92 ms QT Int : 372 ms P-R-T Axes : 47 40 130 degrees QTcB Int : 434 ms Normal sinus rhythm Lateral infarct (cited on or before 18-Nov-2024) ACUTE [place] / STEMI Abnormal ECG When compared with ECG of 18-Nov-2024 13:44, Criteria for Anteroseptal infarct are no longer Present Serial changes of evolving Lateral infarct Present Confirmed by Yonny García ([id number]) on 11/20/2024 10:46:28 PM Referred By: REFERRED SELF Confirmed By: Yonny García
[2024-11-21 05:40] LABS: Hematocrit (blood only) 34.6 % (37.0-47.0); Hemoglobin 11.4 g/dl (12.0-16.0); Mean Corpuscular Hemoglobin 28.6 pg (25.0-34.0); Mean Corpuscular Hgb Conc 32.9 g/dL (32.0-36.0); Mean Corpuscular Volume 86.9 fL (80.0-100.0); Mean Platelet Volume 11.5 fL (9.4-12.4); Platelet Count 227 K/uL (130-400); RDW Coefficient of Variation 13.1 % (11.5-14.5); RDW Standard Deviation 41.7 fL (36.4-46.3); Red Blood Count 3.98 M/uL (4.20-5.40)
[2024-11-21 05:54] LABS: BUN Creatinine Ratio 22.2 (10-20); Calcium 8.3 mg/dl (8.6-10.3); Creatinine Clr Calc Pharmacy 106.4 ml/min; Magnesium 1.8 mg/dl (1.7-2.4); Phosphorus 3.4 mg/dl (2.5-4.9); Potassium 4.1 mmol/L (3.5-5.1)
--- NOTE | 2024-11-21 06:39 | Communication Note ---
Date of Service: November 21, 2024 Patient seen on evening rounds. Events of today noted. She has persistent hypotension which is wholly asymptomatic, lowest when she is sleeping. At some points her SBP is 70s with MAP 55. This AM she is 90s/50s which is consistent with the remainder of her admission. BB has been D/C. She is warm and well- perfused. R groin site is C/D/I without expanding hematoma. Her abdomen is nontender including flanks and suprapubic region. Her HGB is stable. Do not have high suspicion for RP bleeding given her overall picture. Continue to monitor closely. Coding Level of Care Code None
--- NOTE | 2024-11-21 07:27 | Critical Care Progress Note ---
Date of Service November 21, 2024 Assessment & Plan (1) ST elevation (STEMI) myocardial infarction: Plan Impression: 59-year-old female with history of chronic pain issues and methamphetamine abuse here with ST elevation myocardial infarction status post drug-eluting stent to the diagonal. Echo shows depressed ejection fraction with regional wall motion abnormalities as well as moderate MR. CT of the chest shows multiple rib fractures but no mass. She underwent an initial cardiac intervention but the LAD territory was unable to be revascularized. She developed recurrent chest pain with ST elevations yesterday afternoon was taken back to [facility]. LAD was successfully stented Recommendations: 1. Acute coronary syndrome: Status post PCI x 2 with stents to the diagonal LAD. Now chest pain-free. Continue cardiology management. Dual antiplatelet agents. Beta-marek and SUKHDEEP inhibitor limited due to hypotension currently. Will need defibrillator vest prior to discharge. Patient will need cardiac rehab and follow-up with the heart failure clinic. Additional recommendations per cardiology. Out of bed to chair as tolerated. 2. Leukocytosis: Resolved 3. Hyponatremia: Resolved 4. Substance abuse: Patient should remain free of substance abuse in the future 5. Heart failure with reduced ejection fraction: Continue goal-directed therapy. Blood pressure is mildly low however the patient is asymptomatic. Reduced afterload may improve forward flow. 6. No evidence of lung mass on CT of the chest. Small adenopathy. No indication for radiographic surveillance in the absence clinical symptoms. Multiple fractures chronic. Continue to monitor in the ICU given her hemodynamics. Admission and Anticipated Discharge Date Admission Date: November 18, 2024 Subjective Patient seen and examined. EMR reviewed. Discussed with bedside critical care nurse and on multidisciplinary rounds. The patient is awake alert conversant. She is eating breakfast. She is complaining of some minimal cramping at her cath site in the right groin. She is now chest pain-free. She denies any syncope or presyncope. She has not been out of bed to chair yet. Review of Systems 2 Review of Systems: All systems reviewed & are unremarkable except as noted in Subjective Physical Exam 2 Constitutional: WD/WN, vitals as above Neck: trachea midline, no thyromegaly Respiratory: normal respiratory effort, lungs clear to auscultation Cardiovascular: RRR, no murmur, no edema Gastrointestinal (Abdomen): normal bowel sounds, soft, nontender, no hepatosplenomegaly Musculoskeletal: Extremities: extremities normal to inspection Skin: no rashes, warm and dry Lymphatic: no cervical lymphadenopathy Results & Data Results & Data Vital Signs (Past 12 Hours) Vital Signs Temp Pulse Resp BP Pulse Ox O2 Del Method 11/21/24 07:06 74 22 11/21/24 07:01 93/56 L 11/21/24 07:01 93/56 L 11/21/24 07:01 93/56 L 11/21/24 07:01 93/56 L 11/21/24 07:01 93/56 L 11/21/24 06:36 75 22 11/21/24 06:30 88/61 L 11/21/24 06:15 77 24 11/21/24 06:03 72 21 11/21/24 06:00 87/59 L 11/21/24 06:00 87/59 L 11/21/24 06:00 87/59 L 11/21/24 05:57 72 24 11/21/24 05:52 36.6 C 11/21/24 05:30 79 19 96 11/21/24 05:30 93/59 L 11/21/24 05:30 93/59 L 11/21/24 05:00 84/62 L 11/21/24 05:00 84/62 L 11/21/24 05:00 84/62 L 11/21/24 05:00 84/62 L 11/21/24 04:00 36.6 C 11/21/24 03:57 74 24 94 11/21/24 03:30 80/57 L 11/21/24 03:06 71 22 93 11/21/24 01:33 70 22 94 11/21/24 01:30 79/55 L 11/21/24 01:30 79/55 L 11/21/24 01:30 79/55 L 11/21/24 01:24 70 23 94 11/21/24 01:00 78/54 L 11/21/24 01:00 76 24 93 11/21/24 00:33 77 20 94 11/21/24 00:32 76/53 L 11/21/24 00:30 73 20 93 11/21/24 00:00 71 11/21/24 00:00 36.8 C 11/21/24 00:00 80/52 L 11/21/24 00:00 80/52 L 11/21/24 00:00 80/52 L 11/21/24 00:00 80/52 L 11/21/24 00:00 80/52 L 11/21/24 00:00 74 21 94 11/20/24 23:33 68 20 94 11/20/24 23:30 81/57 L 11/20/24 23:30 81/57 L 11/20/24 23:27 71 22 94 11/20/24 23:24 69 23 96 11/20/24 23:02 79/49 L 11/20/24 23:02 79/49 L 11/20/24 22:57 77 23 95 11/20/24 22:30 79/50 L 11/20/24 22:30 79/50 L 11/20/24 22:24 76 23 93 11/20/24 22:00 76/50 L 11/20/24 22:00 77 24 11/20/24 21:48 80 20 11/20/24 21:30 87/61 L 11/20/24 21:27 71 24 11/20/24 21:15 79 24 11/20/24 20:57 81 20 11/20/24 20:55 85/53 L 11/20/24 20:54 82 18 94 Room Air 11/20/24 20:33 83 16 11/20/24 20:30 88/63 L 11/20/24 20:30 88/63 L 11/20/24 20:30 88/63 L 11/20/24 20:27 82 23 11/20/24 20:15 86/58 L 11/20/24 20:09 76 17 11/20/24 20:00 36.8 C 11/20/24 20:00 96 Room Air 11/20/24 20:00 90/58 L 11/20/24 20:00 90/58 L 11/20/24 20:00 90/58 L 11/20/24 19:51 80 21 11/20/24 19:36 84 21 11/20/24 19:31 92/59 L 11/20/24 19:30 Room Air 11/20/24 19:24 90 22 11/20/24 19:21 85 17 11/20/24 19:15 97/61 L 11/20/24 19:12 84 19 11/20/24 19:09 81 31 H 11/20/24 19:00 96 Room Air 11/20/24 19:00 102/61 11/20/24 18:45 92/64 L 11/20/24 18:33 78 29 H 11/20/24 18:31 99/62 L 11/20/24 18:30 77 22 Laboratory Results 11/21/24 05:20 11/21/24 05:20 Diagnostic Findings Cardiac catheterization reviewed Coding Level of Care Code 29749 SUB INP/OBS CARE 3/50MIN Diagnoses ST elevation (STEMI) myocardial infarction I21.3
[2024-11-21] MEDS: ATORVASTATIN 40 MG TAB PO SCH (08:21)
--- NOTE | 2024-11-21 12:03 | Hospitalist Progress Note ---
Date of Service November 21, 2024 Assessment & Plan (1) Chest pain: (2) ST elevation (STEMI) myocardial infarction: Plan This is a 59 yr old F who has a significant PMH of COPD, HTN, nocturnal hypoxemia, HLD, hypothyroidism, GERD, fibromyalgia, hx of MAY, depression with anxiety, ptsd, hx of cdiff, tobacco use disorder who presents to ED 2/2 chest pain. #Chest Pain #ACS STEMI #Ac HF w/ r EF 11/18 ECHO w/ EF of 30-35%, grade 2 diastolic dysfunction. pt is s/p cardiac cath 11/18 with NAMAN x 1 --Chest pain again on 11/20 --> heart alert --> got LAD PCI x 2. prior stent was open further management per interventional cardiology c/w dapt, statin. GDMT not able to be optimized given low BP. f/u cardio and card rehab on dc. Will need defibrillator vest prior to discharge. #HTN Per outpt review previously was not on any antihypertensive #Transaminitis AST 224, ALT 55, repeat lfts in a.m RUQ US reviewed, LFT down trended, repeat LFT in a week of dc at PCP office to ensure resolution #COPD: no acute exac continue home inhalers encourage smoking cessation #Tobacco abuse encourage smoking cessation DVT ppx: hep sc FULL CODE PCP: Dr. Cruz Dispo: per clearance from cardio. Will need defibrillator vest prior to discharge. Admission and Anticipated Discharge Date Admission Date: November 18, 2024 Subjective Patient seen and examined at bedside, chart reviewed. Patient was lying in bed, on room air, NAD, resting comfortably. Patient denies any chest pain, reports some pain at right femoral access site. Patient denies any palpitation or shortness of breath. Patient's eating ok . Physical Exam Physical Exam: Constitutional: Thin, F, lying in bed, NAD, pleasant, conversing easily Head: Normocephalic, Atraumatic Eyes: PERRL, conjunctivae normal, anicteric sclerae ENMT: external ear and nose normal, oropharynx normal dry membranes, poor dentition Neck: trachea midline, no thyromegaly normal visual inspection Respiratory: normal respiratory effort, lungs clear to auscultation, no wheeze, rales, rhonchi. Cardiovascular: RRR, no murmur, no edema Vessels: no JVD or carotid bruit Chest: normal inspection of chest Abdomen: normal bowel sounds, soft, nontender, no hepatosplenomegaly Musculoskeletal: no cyanosis or clubbing Skin: no rashes, warm and dry normal turgor Neurologic: PERRL, EOMI, accommodation nl, no face palsy, no dysarthria CN's II-XI intact bilaterally and moves all extremities Psychiatric: A+Ox3, euthymic affect Lymphatic: no cervical or axillary lymphadenopathy : deferred Right femoral access site w/ clean dressing w/ minima soakage, no swelling noted. Results & Data Results & Data Vital Signs (Past 12 Hours) Vital Signs Temp Pulse Resp BP Pulse Ox 11/21/24 07:06 74 22 11/21/24 07:01 93/56 L 11/21/24 07:01 93/56 L 11/21/24 07:01 93/56 L 11/21/24 07:01 93/56 L 11/21/24 07:01 93/56 L 11/21/24 06:36 75 22 11/21/24 06:30 88/61 L 11/21/24 06:15 77 24 11/21/24 06:03 72 21 11/21/24 06:00 87/59 L 11/21/24 06:00 87/59 L 11/21/24 06:00 87/59 L 11/21/24 05:57 72 24 11/21/24 05:52 36.6 C 11/21/24 05:30 79 19 96 11/21/24 05:30 93/59 L 11/21/24 05:30 93/59 L 11/21/24 05:00 84/62 L 11/21/24 05:00 84/62 L 11/21/24 05:00 84/62 L 11/21/24 05:00 84/62 L 11/21/24 04:00 36.6 C 11/21/24 03:57 74 24 94 11/21/24 03:30 80/57 L 11/21/24 03:06 71 22 93 11/21/24 01:33 70 22 94 11/21/24 01:30 79/55 L 11/21/24 01:30 79/55 L 11/21/24 01:30 79/55 L 11/21/24 01:24 70 23 94 11/21/24 01:00 78/54 L 11/21/24 01:00 76 24 93 11/21/24 00:33 77 20 94 11/21/24 00:32 76/53 L 11/21/24 00:30 73 20 93 11/21/24 00:00 71 11/21/24 00:00 36.8 C 11/21/24 00:00 80/52 L 11/21/24 00:00 80/52 L 11/21/24 00:00 80/52 L 11/21/24 00:00 80/52 L 11/21/24 00:00 80/52 L 11/21/24 00:00 74 21 94 11/20/24 23:33 68 20 94 11/20/24 23:30 81/57 L 11/20/24 23:30 81/57 L 11/20/24 23:27 71 22 94 11/20/24 23:24 69 23 96 11/20/24 23:02 79/49 L 11/20/24 23:02 79/49 L 11/20/24 22:57 77 23 95
--- NOTE | 2024-11-21 21:16 | Cardiology Progress Note ---
Date of Service November 21, 2024 Assessment & Plan (1) ST elevation (STEMI) myocardial infarction: (2) Ischemic cardiomyopathy: (3) Dyslipidemia: (4) Hypotension: (5) Tobacco abuse: (6) CAD (coronary artery disease): (7) S/P coronary artery stent placement: (8) Ventricular tachycardia: Plan ASSESSMENT/PLAN: 1. STEMI: Occluded mid LAD that was unable to be intervened upon initially on 11/18/2024 but later successfully stented on 11/20/2024 when she had recurrent symptoms. Underwent PCI of D1 on 11/18/2024. No further angina. Continue dual antiplatelet therapy. Aspirin 81 mg daily indefinitely. Brilinta for at least 1 year. High intensity statin therapy. Beta-marek when blood pressure allows. Cardiac rehab. 2. Ischemic cardiomyopathy: LV systolic function is severely reduced. She appears euvolemic. Initiate goal-directed medical therapy as able. Recommend metoprolol succinate, Entresto versus SUKHDEEP inhibitor (taking finance into consideration), mineralocorticoid receptor antagonist, SGLT2 inhibitor when blood pressure allows. She was significantly hypotensive throughout last night but blood pressure better today. If blood pressure maintains by tomorrow, can likely initiate at least beta-marek to start. LifeVest is pending but has been ordered by Dr. Hernandez. If after 40 days, EF remains <35%, with then recommend ICD for primary prevention. Patient is agreeable if indicated. Given the LAD has since been intervened upon, repeat limited echo tomorrow to evaluate for improved LV systolic function. 3. CAD s/p and diag PCI: Plan as above with dual antiplatelet therapy and risk factor modification. Cardiac rehab. 4. Ventricular tachycardia: Nonsustained on 11/19/2024. Continue telemetry. No further arrhythmia noted when evaluated this afternoon. Beta-marek as above. 5. Tobacco abuse: Smoking cessation. 6. Hypotension: Asymptomatic. Blood pressure was much more significantly reduced overnight from 11/20/2024 into 11/21/2024 but improved today with systolic blood pressure mostly in the 90s. Hopefully able to at least start beta-marek tomorrow. 7. Dyslipidemia: LDL elevated in the setting of CAD. Continue high intensity statin therapy. 8. Right femoral access site bleed: Oozing of blood from the right femoral acc ess site. Manual pressure was held by me and also nursing staff. Checked with nursing staff this evening and there was no further bleeding noted on the dressing. No obvious hematoma and no abdominal discomfort. Hemoglobin did not significantly drop. She was reminded multiple times to remain still in bed for at least 1 hour after holding pressure. 9. Disposition: Cardiology will continue to follow. Dr. Hernandez will resume her cardiology care tomorrow. Follow-up with Dr. Hernandez in the outpatient setting. Cardiac rehab. Admission and Anticipated Discharge Date Admission Date: November 18, 2024 Subjective She was evaluated this afternoon. She has not had any further angina. She states that her groin was painful. It was notable that she was not laying still in bed despite nursing staff repetitively reminding her to do so. She appeared comfortable when at the bedside and was even laughing at times while holding pressure on the groin, but continued to ask for pain medication. She denies shortness of breath, orthopnea, syncope, near syncope, palpitations, or edema. She was hypotensive overnight but when awake, her systolic blood pressure was mostly in the 90s today, improved from yesterday. Nursing staff noted that she has been oozing from her groin site throughout the day and he has had to change dressing twice as they became soaked through with blood. She was alone in her hospital room. Physical Exam Physical Exam: Gen.: No acute distress. Alert and oriented. HEENT: Anicteric sclera. Neck: No JVD. Cardiac: Regular. Normal S1-S2. No murmurs, rubs, or gallops. Pulmonary: Clear to auscultation bilaterally without wheezes, rales, or rhonchi. Abdomen: Soft, nontender, nondistended, with normoactive bowel sounds. No bruits noted. Extremities: 2+ radial pulses bilaterally. Right radial cath site is clean, dry, and intact without erythema or discharge. Right femoral access site was without hematoma or ecchymosis but there was oozing of blood from the access site once bandage was removed. 2+ posterior tibialis pulses bilaterally. No edema or cyanosis. Results & Data Vital Signs (Past 12 Hours) Vital Signs Pulse Resp BP Pulse Ox O2 Del Method 11/21/24 15:00 84 11/21/24 15:00 96 Room Air 11/21/24 14:45 75 25 H 11/21/24 14:33 77 26 H 11/21/24 14:31 90/58 L 11/21/24 14:21 90 23 11/21/24 14:15 80 17 11/21/24 14:03 80 16 11/21/24 14:00 93/66 L 11/21/24 14:00 93/66 L 11/21/24 13:57 77 22 11/21/24 13:56 96/63 L 11/21/24 13:36 78 22 11/21/24 13:18 82 20 11/21/24 12:33 79 23 11/21/24 12:30 92/50 L 11/21/24 12:30 92/50 L 11/21/24 12:30 92/50 L 11/21/24 12:30 92/50 L 11/21/24 12:24 84 17 11/21/24 12:00 94/61 L 11/21/24 12:00 94/61 L 11/21/24 11:09 81 23 11/21/24 11:06 81 21 11/21/24 11:00 91/59 L 11/21/24 11:00 91/59 L 11/21/24 11:00 91/59 L 11/21/24 11:00 91/59 L 11/21/24 10:54 85 21 11/21/24 10:30 89/55 L 11/21/24 10:30 89/55 L 11/21/24 10:30 89/55 L 11/21/24 10:30 89/55 L 11/21/24 10:30 89/55 L 11/21/24 10:30 89/55 L 11/21/24 10:21 84 27 H Laboratory Results Laboratory Results - last 24 hr 11/20/24 11/21/24 21:43 05:20 WBC 10.30 RBC 3.98 L Hgb 11.4 L Hct 34.6 L MCV 86.9 MCH 28.6 MCHC 32.9 RDW Std Deviation 41.7 RDW Coeff of Naeem 13.1 Plt Count 227 MPV 11.5 Sodium 136 Potassium 4.1 Chloride 107 Carbon Dioxide 26 Anion Gap 3 BUN 12 Creatinine 0.54 L Est Cr Clr Drug Dosing 106.4 eGFR 104.68 BUN/Creatinine Ratio 22.2 H Glucose 112 H Calcium 8.3 L Phosphorus 3.4 Magnesium 1.8 Troponin I High Sens 07678.9 H* D Diagnostic Findings Labs reviewed and notable for mild anemia, stable renal function, normal potassium. Telemetry personally reviewed: Sinus rhythm. No arrhythmia. ECG personally reviewed 11/21/2024 at 6:53 AM: Sinus rhythm 75 bpm. Anterior T wave inversion. Lateral infarct with residual ST elevation and T wave inversion. Cardiac cath report reviewed from 11/20/2024: Severe proximal to mid LAD stenosis underwent PCI with 2 drug-eluting stents. Previously placed diagonal stent was patent. Medications Administered Current Inpatient Medications Acetaminophen (Acetaminophen 325 Mg Tab) 650 mg PO Q4H PRN PRN Reason: MILD Pain (Scale 1,2,3) Stop: 12/18/24 13:29 Last Admin: 11/21/24 14:37 Dose: 650 mg Albuterol (Albuterol Hfa 8 Gm Inhaler) 2 puffs INH Q4H PRN PRN Reason: Shortness Of Breath Or Wheezing Stop: 12/18/24 15:35 Aspirin (Aspirin 81 Mg Ectab) 81 mg PO DAILY FAROOQ Stop: 12/19/24 08:59 Last Admin: 11/21/24 08:12 Dose: 81 mg Atorvastatin Calcium (Atorvastatin 40 Mg Tab) 80 mg PO QAM FAROOQ Stop: 12/21/24 08:59 Last Admin: 11/21/24 08:21 Dose: 80 mg Calcium Carbonate (Calcium Carbonate 500 Mg Chewable Tab) 1,000 mg PO Q8H PRN PRN Reason: Indigestion Stop: 12/20/24 09:05 Last Admin: 11/21/24 17:01 Dose: 1,000 mg Famotidine (Famotidine 20 Mg Tab) 20 mg PO BID PRN PRN Reason: acid reflux Stop: 12/20/24 09:14 Last Admin: 11/21/24 17:01 Dose: 20 mg Fluticasone/Vilanterol (Fluticasone/Vilanterol 200/25mcg 14 Puffs/Inhaler) 1 puffs INH DAILY FAROOQ Stop: 12/18/24 20:59 Last Admin: 11/21/24 08:21 Dose: 1 puffs Heparin Sodium (Porcine) (Heparin Sod 5,000 Unit/0.5 Ml Vial) 5,000 units SQ Q12 FAROOQ Stop: 12/19/24 20:59 Last Admin: 11/21/24 20:36 Dose: 5,000 units Levothyroxine Sodium (Levothyroxine Sodium 75 Mcg Tablet) 75 mcg PO DAILYBB [facility] Stop: 12/19/24 06:29 Last Admin: 11/21/24 04:44 Dose: 75 mcg Menthol (Cough Drop (Sugar Free) Kenneth 24 Kenneth/1 Box) 1 kenneth BUCCAL NOW PRN PRN Reason: Cough Stop: 12/20/24 20:26 Last Admin: 11/20/24 21:11 Dose: 1 kenneth Miscellaneous (Icu Electrolyte Replacement Protocol) 1 each N/A BID@ [facility]; Protocol Stop: 11/29/24 05:59 Pregabalin (Pregabalin 75 Mg Cap) 225 mg PO BID [facility] Stop: 12/18/24 20:59 Last Admin: 11/21/24 20:39 Dose: 225 mg Quetiapine Fumarate (Quetiapine Fumarate 25 Mg Tablet) 25 mg PO Q8H PRN PRN Reason: Anxiety Stop: 12/18/24 15:35 Last Admin: 11/21/24 20:41 Dose: 25 mg Ticagrelor (Ticagrelor 90 Mg Tab) 90 mg PO BID [facility] Stop: 12/19/24 00:00 Last Admin: 11/21/24 20:41 Dose: 90 mg Venlafaxine HCl (Venlafaxine Hcl Xr 75 Mg Capxr) 75 mg PO DAILY [facility] Stop: 12/19/24 08:59 Last Admin: 11/21/24 08:21 Dose: 75 mg PG Care Time/CCT Total # of Minutes Spent Total Time Spent with Patient: Total time spent is greater than 50% in coordination of care (as documented) at patient's floor/unit and/or counseling patient: Coding Level of Care Code 77268 SUB INP/OBS CARE 3/50MIN Diagnoses ST elevation (STEMI) myocardial infarction I21.3 Ischemic cardiomyopathy I25.5 Dyslipidemia E78.5 Hypotension I95.9 Tobacco abuse Z72.0 CAD (coronary artery disease) I25.10 S/P coronary artery stent placement Z95.5 Ventricular tachycardia I47.20
[2024-11-22 04:14] LABS: Hematocrit (blood only) 35.7 % (37.0-47.0); Hemoglobin 11.7 g/dl (12.0-16.0); Mean Corpuscular Hemoglobin 28.9 pg (25.0-34.0); Mean Corpuscular Hgb Conc 32.8 g/dL (32.0-36.0); Mean Corpuscular Volume 88.1 fL (80.0-100.0); Mean Platelet Volume 11.4 fL (9.4-12.4); Platelet Count 258 K/uL (130-400); RDW Coefficient of Variation 12.9 % (11.5-14.5); RDW Standard Deviation 41.8 fL (36.4-46.3); Red Blood Count 4.05 M/uL (4.20-5.40); White Blood Count 10.38 K/ul (4.8-10.8)
[2024-11-22 04:24] LABS: BUN Creatinine Ratio 18.3 (10-20); Calcium 8.5 mg/dl (8.6-10.3); Creatinine Clr Calc Pharmacy 80.9 ml/min; Magnesium 1.7 mg/dl (1.7-2.4); Phosphorus 4.3 mg/dl (2.5-4.9); Potassium 4.3 mmol/L (3.5-5.1)
[2024-11-22] MEDS: ICU ELECTROLYTE REPLACEMENT PROTOCOL SCH (05:45)
[2024-11-22] MEDS: MAGNESIUM OXIDE 400 MG TAB PO SCH (06:00)
--- NOTE | 2024-11-22 06:01 | Electrocardiogram Report ---
Test Reason : Blood Pressure : */* mmHG Vent. Rate : 74 BPM Atrial Rate : 74 BPM P-R Int : 122 ms QRS Dur : 94 ms QT Int : 378 ms P-R-T Axes : 97 42 193 degrees QTcB Int : 419 ms Normal sinus rhythm Incomplete right bundle branch block Left ventricular hypertrophy with repolarization abnormality ( R in aVL ) Septal infarct , age undetermined Possible Lateral infarct (cited on or before 18-Nov-2024) Abnormal ECG When compared with ECG of 20-Nov-2024 15:15, Incomplete right bundle branch block is now Present Septal infarct is now Present ST no longer elevated in Lateral leads T wave inversion now evident in Anterior leads Confirmed by Yonny García ([id number]) on 11/22/2024 6:00:51 AM Referred By: REFERRED SELF Confirmed By: Yonny García
--- NOTE | 2024-11-22 06:02 | Electrocardiogram Report ---
Test Reason : Blood Pressure : */* mmHG Vent. Rate : 75 BPM Atrial Rate : 75 BPM P-R Int : 126 ms QRS Dur : 78 ms QT Int : 388 ms P-R-T Axes : 51 35 107 degrees QTcB Int : 433 ms Normal sinus rhythm Lateral infarct Abnormal ECG When compared with ECG of 20-Nov-2024 17:25, Criteria for Septal infarct are no longer Present ST less depressed in Anterolateral leads T wave inversion no longer evident in Inferior leads T wave inversion less evident in Lateral leads Confirmed by Yonny García ([id number]) on 11/22/2024 6:02:23 AM Referred By: REFERRED SELF Confirmed By: Yonny García
--- NOTE | 2024-11-22 10:06 | Critical Care Progress Note ---
Date of Service November 22, 2024 Assessment & Plan (1) ST elevation (STEMI) myocardial infarction: Plan Impression: 59-year-old female with history of chronic pain issues and methamphetamine abuse here with ST elevation myocardial infarction status post drug-eluting stent to the diagonal. Echo shows depressed ejection fraction with regional wall motion abnormalities as well as moderate MR. CT of the chest shows multiple rib fractures but no mass. She underwent an initial cardiac intervention but the LAD territory was unable to be revascularized. She developed recurrent chest pain with ST elevations and was taken back to the [facility]. LAD was successfully stented Recommendations: 1. Acute coronary syndrome: Status post PCI x 2 with stents to the diagonal LAD. Now chest pain-free. Continue cardiology management. Dual antiplatelet agents. Beta-marek and SUKHDEEP inhibitor limited due to hypotension currently. Will need defibrillator vest prior to discharge. Patient will need cardiac rehab and follow-up with the heart failure clinic. Additional recommendations per cardiology. Out of bed to chair as tolerated. Formal echo pending 2. Leukocytosis: Resolved 3. Hyponatremia: Resolved 4. Substance abuse: Patient should remain free of substance abuse in the future 5. Heart failure with reduced ejection fraction: Continue goal-directed therapy. Blood pressure is mildly low however the patient is asymptomatic. Beta-blockade and SUKHDEEP/ARB have not been instituted at this time due to hypotension. Defer to cardiology. 6. No evidence of lung mass on CT of the chest. Small adenopathy. No indication for radiographic surveillance in the absence clinical symptoms. Multiple fractures chronic. Patient would benefit from low-dose CT lung cancer screening as an outpatient given her extensive smoking history. Downgrade to PCU status. Admission and Anticipated Discharge Date Admission Date: November 18, 2024 Subjective Patient seen and examined this morning. Requesting nicotine gum, but refusing nicotine patches. Denies any chest pain, fevers, chills or night sweats. Review of Systems Review of Systems: All systems reviewed & are unremarkable except as noted in HPI & below Physical Exam Constitutional: WD/WN, vitals as above Neck: trachea midline, no thyromegaly Respiratory: normal respiratory effort, lungs clear to auscultation Cardiovascular: RRR, no murmur, no edema Gastrointestinal (Abdomen): normal bowel sounds, soft, nontender, no hepatosplenomegaly Musculoskeletal: Extremities: extremities normal to inspection Skin: no rashes, warm and dry Lymphatic: no cervical lymphadenopathy Results & Data Results & Data Vital Signs (Past 12 Hours) Vital Signs Temp Pulse Resp BP 11/22/24 09:24 90 27 H 11/22/24 09:00 104/68 11/22/24 09:00 104/11/22/24 09:00 104/68 11/22/24 09:00 104/68 11/22/24 09:00 104/11/22/24 09:00 104/11/22/24 09:00 104/11/22/24 09:00 104/68 11/22/24 09:00 104/68 11/22/24 09:00 104/68 11/22/24 09:00 104/68 11/22/24 08:54 85 30 H 11/22/24 08:24 87 27 H 11/22/24 08:22 97/59 L 11/22/24 07:36 78 20 11/22/24 07:33 75 21 11/22/24 06:29 75 19 11/22/24 06:00 101/72 11/22/24 06:00 101/72 11/22/24 06:00 101/72 11/22/24 04:59 73 11/22/24 04:47 77 20 11/22/24 04:20 80 21 11/22/24 04:17 69 23 11/22/24 04:05 74 21 11/22/24 04:00 93/59 L 11/22/24 04:00 93/59 L 11/22/24 04:00 93/59 L 11/22/24 04:00 93/59 L 11/22/24 04:00 93/59 L 11/22/24 04:00 93/59 L 11/22/24 04:00 93/59 L 11/22/24 04:00 93/59 L 11/22/24 04:00 93/59 L 11/22/24 04:00 93/59 L 11/22/24 04:00 93/59 L 11/22/24 04:00 93/59 L 11/22/24 04:00 93/59 L 11/22/24 04:00 93/59 L 11/22/24 04:00 93/59 L 11/22/24 04:00 93/59 L 11/22/24 03:59 77 19 11/22/24 03:53 76 19 11/22/24 03:35 75 28 H 11/22/24 03:23 92 H 24 11/22/24 03:17 75 20 11/22/24 03:02 76 22 11/22/24 03:00 84/53 L 11/22/24 03:00 84/53 L 11/22/24 03:00 84/53 L 11/22/24 03:00 84/53 L 11/22/24 02:53 75 23 11/22/24 02:50 77 19 11/22/24 02:49 36.6 C 11/22/24 02:47 84 21 11/22/24 02:27 74 25 H 11/22/24 02:12 96 H 15 11/22/24 02:03 81 25 H 11/22/24 02:00 88/56 L 11/22/24 02:00 88/56 L 11/22/24 02:00 88/56 L 11/22/24 02:00 88/56 L 11/22/24 02:00 88/56 L 11/22/24 02:00 88/56 L 11/22/24 02:00 88/56 L 11/22/24 02:00 88/56 L 11/22/24 02:00 88/56 L 11/22/24 02:00 88/56 L 11/22/24 02:00 88/56 L 11/22/24 02:00 88/56 L 11/22/24 02:00 88/56 L 11/22/24 02:00 88/56 L 11/22/24 02:00 88/56 L 11/22/24 02:00 88/56 L 11/22/24 02:00 88/56 L 11/22/24 02:00 88/56 L 11/22/24 02:00 88/56 L 11/22/24 01:57 79 25 H 11/22/24 01:42 71 20 11/22/24 01:30 77 23 11/22/24 01:15 81 23 11/22/24 01:00 80 23 11/22/24 01:00 88/57 L 11/22/24 01:00 88/57 L 11/22/24 01:00 88/57 L 11/22/24 01:00 88/57 L 11/22/24 01:00 88/57 L 11/22/24 01:00 88/57 L 11/22/24 01:00 88/57 L 11/22/24 01:00 88/57 L 11/22/24 01:00 88/57 L 11/22/24 01:00 88/57 L 11/22/24 01:00 88/57 L 11/22/24 01:00 88/57 L 11/22/24 01:00 88/57 L 11/22/24 01:00 88/57 L 11/22/24 01:00 88/57 L Coding Level of Care Code 88232 SUB INP/OBS CARE 2/35MIN Diagnoses ST elevation (STEMI) myocardial infarction I21.3
--- NOTE | 2024-11-22 11:30 | Cardiology Progress Note ---
Date of Service November 22, 2024 Assessment & Plan (1) S/P coronary artery stent placement: Plan: She will remain on dual antiplatelet therapy for 1 to 2 years. Extensive stenting. (2) Ischemic cardiomyopathy: Plan: Severe LV systolic dysfunction. We have been unable to initiate guideline directed medical therapy secondary to hypotension. She did receive late revascularization. Hopefully this will result in meaningful improvement in her LV function but I suspect many distal LAD may not recover. She does not have LV thrombus on prior echo. No volume overload today. I will add metoprolol succinate ER 25 mg daily and see how she tolerates from a heart rate and blood pressure standpoint. (3) Hypotension: Plan: Her cuff pressure is known to underestimate her invasive pressure. Cuff pressure earlier this morning was about 88 systolic. Now, low 100s. I think she can tolerate metoprolol succinate ER 25 mg daily and this has been prescribed. (4) Dyslipidemia: Plan: High risk. High intensity statin therapy ongoing with a atorvastatin. Plan At this point, patient is appropriate for transfer to stepdown unit. We do recommend she get the defibrillator vest as ordered. Whether or not she will be able to comply with that is a different issue and she will need to decide if she wants to have the best or not. She initially did but cost may be an issue. I am going to gingerly increase her medical regimen to achieve guideline directed therapy. Beginning with metoprolol today. Jardiance 10 mg daily is also recommended. Note, patient has chronic pain syndrome. She will continue to complain of chest discomfort but this has been reproducible. Everything which can be revascularized has been revascularized. The return to the Ux Lead demonstrated the prior stent was widely patent so she is responding appropriately to the blood thinners. In fact, her LAD was also more patent than it was on initial presentation. She had continued drop in her troponin despite new chest pain. She will have a chronic elevation of her ST segments because of the akinetic/aneurysmal distal LAD/apical infarct. Admission and Anticipated Discharge Date Admission Date: November 18, 2024 Subjective Patient was seen in the ICU today. She has only reproducible chest pain no anginal symptoms. I personally reviewed her coronary angiography from over the weekend. Successful implantation of 2 overlapped drug-eluting stents in the LAD from the femoral artery approach. Unfortunately, beyond the stents the vessel appears to have been occluded for quite some time and there is not a good blush in the myocardium. Also the myocardial segments are not moving. Therefore, the distal LAD distribution myocardium may not be significantly viable and she may continue to have some LV dysfunction. She denies any shortness of breath today. No other complaints or concerns at this time. Review of Systems Review of Systems: Negative except as per HPI Physical Exam Constitutional: WD/WN, vitals as above (Thin, older appearing than stated age) Eyes: Extraocular muscles intact ENMT: [place] is pink. Neck: I do not appreciate any JVD today. Respiratory: Clear to auscultation bilaterally. No wheezing, rhonchi, or rales. Poor air movement. Cardiovascular: Regular rate and rhythm. Grade 1-2/6 systolic murmur. S4 gallop. No edema. Musculoskeletal: no cyanosis or clubbing, extremities motor strength 5/5 Neurologic: Diminished hearing. Cognition is intact. Speech is difficult to understand because of dentition but is appropriate Psychiatric: A+Ox3, euthymic affect Results & Data Vital Signs (Past 12 Hours) Vital Signs Temp Pulse Resp BP 11/22/24 09:24 90 27 H 11/22/24 09:00 104/68 11/22/24 09:00 104/68 11/22/24 09:00 104/68 11/22/24 09:00 104/68 11/22/24 09:00 104/68 11/22/24 09:00 104/68 11/22/24 09:00 104/68 11/22/24 09:00 104/68 11/22/24 09:00 104/68 11/22/24 09:00 104/68 11/22/24 09:00 104/68 11/22/24 08:54 85 30 H 11/22/24 08:24 87 27 H 11/22/24 08:22 97/59 L 11/22/24 07:36 78 20 11/22/24 07:33 75 21 11/22/24 06:29 75 19 11/22/24 06:00 101/72 11/22/24 06:00 101/11/22/24 06:00 101/11/22/24 04:59 73 11/22/24 04:47 77 20 11/22/24 04:20 80 21 11/22/24 04:17 69 23 11/22/24 04:05 74 21 11/22/24 04:00 93/59 L 11/22/24 04:00 93/59 L 11/22/24 04:00 93/59 L 11/22/24 04:00 93/59 L 11/22/24 04:00 93/59 L 11/22/24 04:00 93/59 L 11/22/24 04:00 93/59 L 11/22/24 04:00 93/59 L 11/22/24 04:00 93/59 L 11/22/24 04:00 93/59 L 11/22/24 04:00 93/59 L 11/22/24 04:00 93/59 L 11/22/24 04:00 93/59 L 11/22/24 04:00 93/59 L 11/22/24 04:00 93/59 L 11/22/24 04:00 93/59 L 11/22/24 03:59 77 19 11/22/24 03:53 76 19 11/22/24 03:35 75 28 H 11/22/24 03:23 92 H 24 11/22/24 03:17 75 20 11/22/24 03:02 76 22 11/22/24 03:00 84/53 L 11/22/24 03:00 84/53 L 11/22/24 03:00 84/53 L 11/22/24 03:00 84/53 L 11/22/24 02:53 75 23 11/22/24 02:50 77 19 11/22/24 02:49 36.6 C 11/22/24 02:47 84 21 11/22/24 02:27 74 25 H 11/22/24 02:12 96 H 15 11/22/24 02:03 81 25 H 11/22/24 02:00 88/56 L 11/22/24 02:00 88/56 L 11/22/24 02:00 88/56 L 11/22/24 02:00 88/56 L 11/22/24 02:00 88/56 L 11/22/24 02:00 88/56 L 11/22/24 02:00 88/56 L 11/22/24 02:00 88/56 L 11/22/24 02:00 88/56 L 11/22/24 02:00 88/56 L 11/22/24 02:00 88/56 L 11/22/24 02:00 88/56 L 11/22/24 02:00 88/56 L 11/22/24 02:00 88/56 L 11/22/24 02:00 88/56 L 11/22/24 02:00 88/56 L 11/22/24 02:00 88/56 L 11/22/24 02:00 88/56 L 11/22/24 02:00 88/56 L 11/22/24 01:57 79 25 H 11/22/24 01:42 71 20 11/22/24 01:30 77 23 11/22/24 01:15 81 23 11/22/24 01:00 80 23 11/22/24 01:00 88/57 L 11/22/24 01:00 88/57 L 11/22/24 01:00 88/57 L 11/22/24 01:00 88/57 L 11/22/24 01:00 88/57 L 11/22/24 01:00 88/57 L 11/22/24 01:00 88/57 L 11/22/24 01:00 88/57 L 11/22/24 01:00 88/57 L 11/22/24 01:00 88/57 L 11/22/24 01:00 88/57 L 11/22/24 01:00 88/57 L 11/22/24 01:00 88/57 L 11/22/24 01:00 88/57 L 11/22/24 01:00 88/57 L PG Care Time/CCT Total # of Minutes Spent Total Time Spent with Patient: Total time spent is greater than 50% in coordination of care (as documented) at patient's floor/unit and/or counseling patient: Coding Level of Care Code 61197 SUB INP/OBS CARE 2/35MIN Diagnoses S/P coronary artery stent placement Z95.5 Ischemic cardiomyopathy I25.5 Hypotension I95.9 Dyslipidemia E78.5
--- NOTE | 2024-11-22 11:42 | Hospitalist Progress Note ---
Date of Service November 22, 2024 Assessment & Plan (1) Chest pain: (2) ST elevation (STEMI) myocardial infarction: Plan This is a 59 yr old F who has a significant PMH of COPD, HTN, nocturnal hypoxemia, HLD, hypothyroidism, GERD, fibromyalgia, hx of AMY, depression with anxiety, ptsd, hx of cdiff, tobacco use disorder who presents to ED 2/2 chest pain. #Chest Pain #ACS STEMI #Ac HF w/ r EF 11/18 ECHO w/ EF of 30-35%, grade 2 diastolic dysfunction. pt is s/p cardiac cath 11/18 with NAMAN x 1 --Chest pain again on 11/20 --> heart alert --> got LAD PCI x 2. prior stent was open further management per interventional cardiology c/w dapt, statin. GDMT not able to be optimized given low BP. Now that BP is improving, metoprolol has been re-added 11/22. f/u cardio and card rehab on dc. Will need defibrillator vest prior to discharge. #HTN Per outpt review previously was not on any antihypertensive #Transaminitis AST 224, ALT 55, repeat lfts in a.m RUQ US reviewed, LFT down trended, repeat LFT in a week of dc at PCP office to ensure resolution #COPD: no acute exac continue home inhalers encourage smoking cessation low dose CT lung cancer screen as OP. #Tobacco abuse encourage smoking cessation DVT ppx: hep sc FULL CODE PCP: Dr. Cruz Dispo: GDMT being optimized, per clearance from cardio. Will need defibrillator vest prior to discharge. Admission and Anticipated Discharge Date Admission Date: November 18, 2024 Subjective Patient seen and examined at bedside, chart reviewed. Patient was lying in bed, on room air, NAD, resting comfortably. Patient denies any chest pain or sob or palpitations, reports improvement in pain at right femoral access site. Patient's eating ok and moving bowels ok. Physical Exam Physical Exam: Constitutional: Thin, F, lying in bed, NAD, pleasant, conversing easily Head: Normocephalic, Atraumatic Eyes: PERRL, conjunctivae normal, anicteric sclerae ENMT: external ear and nose normal, oropharynx normal dry membranes, poor dentition Neck: trachea midline, no thyromegaly normal visual inspection Respiratory: normal respiratory effort, lungs clear to auscultation, no wheeze, rales, rhonchi. Cardiovascular: RRR, no murmur, no edema Vessels: no JVD or carotid bruit Chest: normal inspection of chest Abdomen: normal bowel sounds, soft, nontender, no hepatosplenomegaly Musculoskeletal: no cyanosis or clubbing Skin: no rashes, warm and dry normal turgor Neurologic: PERRL, EOMI, accommodation nl, no face palsy, no dysarthria CN's II-XI intact bilaterally and moves all extremities Psychiatric: A+Ox3, euthymic affect Lymphatic: no cervical or axillary lymphadenopathy : deferred Right femoral access site w/ clean dressing w/ no soakage, no swelling noted. Results & Data Results & Data Vital Signs (Past 12 Hours) Vital Signs Temp Pulse Resp BP 11/22/24 09:24 90 27 H 11/22/24 09:00 104/11/22/24 09:00 104/11/22/24 09:00 104/11/22/24 09:00 10411/22/24 09:00 104/68 11/22/24 09:00 104/68 11/22/24 09:00 104/68 11/22/24 09:00 104/68 11/22/24 09:00 104/68 11/22/24 09:00 104/68 11/22/24 09:00 104/68 11/22/24 08:54 85 30 H 11/22/24 08:24 87 27 H 11/22/24 08:22 97/59 L 11/22/24 07:36 78 20 11/22/24 07:33 75 21 11/22/24 06:29 75 19 11/22/24 06:00 101/72 11/22/24 06:00 101/72 11/22/24 06:00 101/72 11/22/24 04:59 73 11/22/24 04:47 77 20 11/22/24 04:20 80 21 11/22/24 04:17 69 23 11/22/24 04:05 74 21 11/22/24 04:00 93/59 L 11/22/24 04:00 93/59 L 11/22/24 04:00 93/59 L 11/22/24 04:00 93/59 L 11/22/24 04:00 93/59 L 11/22/24 04:00 93/59 L 11/22/24 04:00 93/59 L 11/22/24 04:00 93/59 L 11/22/24 04:00 93/59 L 11/22/24 04:00 93/59 L 11/22/24 04:00 93/59 L 11/22/24 04:00 93/59 L 11/22/24 04:00 93/59 L 11/22/24 04:00 93/59 L 11/22/24 04:00 93/59 L 11/22/24 04:00 93/59 L 11/22/24 03:59 77 19 11/22/24 03:53 76 19 11/22/24 03:35 75 28 H 11/22/24 03:23 92 H 24 11/22/24 03:17 75 20 11/22/24 03:02 76 22 11/22/24 03:00 84/53 L 11/22/24 03:00 84/53 L 11/22/24 03:00 84/53 L 11/22/24 03:00 84/53 L 11/22/24 02:53 75 23 11/22/24 02:50 77 19 11/22/24 02:49 36.6 C 11/22/24 02:47 84 21 11/22/24 02:27 74 25 H 11/22/24 02:12 96 H 15 11/22/24 02:03 81 25 H 11/22/24 02:00 88/56 L 11/22/24 02:00 88/56 L 11/22/24 02:00 88/56 L 11/22/24 02:00 88/56 L 11/22/24 02:00 88/56 L 11/22/24 02:00 88/56 L 11/22/24 02:00 88/56 L 11/22/24 02:00 88/56 L 11/22/24 02:00 88/56 L 11/22/24 02:00 88/56 L 11/22/24 02:00 88/56 L 11/22/24 02:00 88/56 L 11/22/24 02:00 88/56 L 11/22/24 02:00 88/56 L 11/22/24 02:00 88/56 L 11/22/24 02:00 88/56 L 11/22/24 02:00 88/56 L 11/22/24 02:00 88/56 L 11/22/24 02:00 88/56 L 11/22/24 01:57 79 25 H 11/22/24 01:42 71 20 11/22/24 01:30 77 23 11/22/24 01:15 81 23 11/22/24 01:00 80 23 11/22/24 01:00 88/57 L 11/22/24 01:00 88/57 L 11/22/24 01:00 88/57 L 11/22/24 01:00 88/57 L 11/22/24 01:00 88/57 L 11/22/24 01:00 88/57 L 11/22/24 01:00 88/57 L 11/22/24 01:00 88/57 L 11/22/24 01:00 88/57 L 11/22/24 01:00 88/57 L 11/22/24 01:00 88/57 L 11/22/24 01:00 88/57 L 11/22/24 01:00 88/57 L 11/22/24 01:00 88/57 L 11/22/24 01:00 88/57 L
[2024-11-22] MEDS: SIMETHICONE 40 MG/0.6 ML 30ML PO PRN (16:04)
--- NOTE | 2024-11-23 06:25 | Electrocardiogram Report ---
Test Reason : Blood Pressure : */* mmHG Vent. Rate : 80 BPM Atrial Rate : 80 BPM P-R Int : 128 ms QRS Dur : 84 ms QT Int : 366 ms P-R-T Axes : 66 61 69 degrees QTcB Int : 422 ms Normal sinus rhythm Nonspecific ST and T wave abnormality Lateral infarct T wave abnormality, consider anterior ischemia Nonspecific ST abnormality Abnormal ECG When compared with ECG of 22-Nov-2024 08:52, Limb lead reversal is no longer present Criteria for Septal infarct are no longer Present Confirmed by Yonny García ([id number]) on 11/23/2024 6:25:50 AM Referred By: REFERRED SELF Confirmed By: Yonny García
--- NOTE | 2024-11-23 06:25 | Electrocardiogram Report ---
Test Reason : Blood Pressure : */* mmHG Vent. Rate : 88 BPM Atrial Rate : 88 BPM P-R Int : 128 ms QRS Dur : 84 ms QT Int : 378 ms P-R-T Axes : 119 127 101 degrees QTcB Int : 457 ms Normal sinus rhythm Limb lead reversal Minimal voltage criteria for LVH, may be normal variant ( Sokolow-Aguirre ) Septal infarct , age undetermined Abnormal ECG When compared with ECG of 21-Nov-2024 06:53, Limb lead reversal is now present T wave inversion less evident in Anterior leads Confirmed by Yonny García ([id number]) on 11/23/2024 6:24:58 AM Referred By: REFERRED SELF Confirmed By: Yonny García
[2024-11-23 07:01] LABS: BUN Creatinine Ratio 20.6 (10-20); Calcium 9.1 mg/dl (8.6-10.3); Creatinine Clr Calc Pharmacy 91.2 ml/min; Magnesium 1.8 mg/dl (1.7-2.4); Phosphorus 4.3 mg/dl (2.5-4.9); Potassium 4.2 mmol/L (3.5-5.1)
[2024-11-23] MEDS: METOPROLOL SUCC 25MG EXT REL TAB PO SCH (09:22)
--- NOTE | 2024-11-23 15:19 | Hospitalist Progress Note ---
Date of Service November 23, 2024 Assessment & Plan (1) Chest pain: (2) ST elevation (STEMI) myocardial infarction: Plan This is a 59 yr old F who has a significant PMH of COPD, HTN, nocturnal hypoxemia, HLD, hypothyroidism, GERD, fibromyalgia, hx of AMY, depression with anxiety, ptsd, hx of cdiff, tobacco use disorder who presents to ED 2/2 chest pain. #Chest Pain #ACS STEMI #Ac HF w/ r EF 11/18 ECHO w/ EF of 30-35%, grade 2 diastolic dysfunction. pt is s/p cardiac cath 11/18 with NAMAN x 1 --Chest pain again on 11/20 --> heart alert --> got LAD PCI x 2. prior stent was open further management per interventional cardiology c/w dapt, statin. GDMT not able to be optimized given low BP. Now that BP is improving, metoprolol has been re-added 11/22. f/u cardio and card rehab on dc. Will need defibrillator vest prior to discharge. #HTN Per outpt review previously was not on any antihypertensive #Transaminitis AST 224, ALT 55, repeat lfts in a.m RUQ US reviewed, LFT down trended, repeat LFT in a week of dc at PCP office to ensure resolution #COPD: no acute exac continue home inhalers encourage smoking cessation low dose CT lung cancer screen as OP. #Tobacco abuse encourage smoking cessation DVT ppx: hep sc FULL CODE PCP: Dr. Cruz Dispo: GDMT being optimized, per clearance from cardio. Will need defibrillator vest prior to discharge. Admission and Anticipated Discharge Date Admission Date: November 18, 2024 Subjective Patient seen and examined at bedside, chart reviewed. Patient was lying in bed, on room air, NAD, resting comfortably. Patient denies any chest pain or sob or palpitations, reports no pain at right femoral access site. Patient's eating ok and moving bowels ok. Pt weak per RN, will consult pt/ot. Physical Exam Physical Exam: Constitutional: Thin, F, lying in bed, NAD, pleasant, conversing easily Head: Normocephalic, Atraumatic Eyes: PERRL, conjunctivae normal, anicteric sclerae ENMT: external ear and nose normal, oropharynx normal dry membranes, poor dentition Neck: trachea midline, no thyromegaly normal visual inspection Respiratory: normal respiratory effort, lungs clear to auscultation, no wheeze, rales, rhonchi. Cardiovascular: RRR, no murmur, no edema Vessels: no JVD or carotid bruit Chest: normal inspection of chest Abdomen: normal bowel sounds, soft, nontender, no hepatosplenomegaly Musculoskeletal: no cyanosis or clubbing Skin: no rashes, warm and dry normal turgor Neurologic: PERRL, EOMI, accommodation nl, no face palsy, no dysarthria CN's II-XI intact bilaterally and moves all extremities Psychiatric: A+Ox3, euthymic affect Lymphatic: no cervical or axillary lymphadenopathy : deferred Right femoral access site w/ clean dressing w/ no soakage, no swelling noted. Results & Data Results & Data Vital Signs (Past 12 Hours) Vital Signs Temp Pulse Pulse Resp BP Pulse Ox O2 Del Method 11/23/24 11:27 36.6 C 77 20 92/60 L 97 Room Air 11/23/24 09:21 96/74 L 11/23/24 09:12 83 11/23/24 07:44 36.6 C 88 18 90/61 L 96 Room Air 11/23/24 07:30 Room Air 11/23/24 04:44 92 H 16 91/72 L 95 Room Air
--- NOTE | 2024-11-23 16:58 | XCELERA ---
[id number]
[2024-11-24 06:41] LABS: BUN Creatinine Ratio 20.9 (10-20); Calcium 8.9 mg/dl (8.6-10.3); Creatinine Clr Calc Pharmacy 85.7 ml/min; Magnesium 1.9 mg/dl (1.7-2.4); Phosphorus 4.5 mg/dl (2.5-4.9); Potassium 4.2 mmol/L (3.5-5.1)
--- NOTE | 2024-11-24 13:07 | Hospitalist Progress Note ---
Date of Service November 24, 2024 Assessment & Plan (1) Chest pain: (2) ST elevation (STEMI) myocardial infarction: Plan This is a 59 yr old F who has a significant PMH of COPD, HTN, nocturnal hypoxemia, HLD, hypothyroidism, GERD, fibromyalgia, hx of AMY, depression with anxiety, ptsd, hx of cdiff, tobacco use disorder who presents to ED 2/2 chest pain. #Chest Pain #ACS STEMI #Ac HF w/ r EF 11/18 ECHO w/ EF of 30-35%, grade 2 diastolic dysfunction. pt is s/p cardiac cath 11/18 with NAMAN x 1 --Chest pain again on 11/20 --> heart alert --> got LAD PCI x 2. prior stent was open f/u echo on 11/23 w/ EF of 30-35%. Extensive severe LAD territory wall motion abnormalities. further management per interventional cardiology c/w dapt, statin. GDMT not able to be optimized given low BP. Now that BP seemed improving, metoprolol has been re-added 11/22. but it again dropped today in AM. f/u cardio and card rehab on dc. Will need defibrillator vest prior to discharge. #HTN Per outpt review previously was not on any antihypertensive #Transaminitis AST 224, ALT 55, repeat lfts in a.m RUQ US reviewed, LFT down trended, repeat LFT in a week of dc at PCP office to ensure resolution #COPD: no acute exac continue home inhalers encourage smoking cessation low dose CT lung cancer screen as OP. #Tobacco abuse encourage smoking cessation DVT ppx: hep sc FULL CODE PCP: Dr. Cruz Dispo: GDMT being optimized, DC when cleared per from cardio. Will need defibrillator vest prior to discharge. Admission and Anticipated Discharge Date Admission Date: November 18, 2024 Subjective Patient seen and examined at bedside, chart reviewed. Patient was lying in bed, on room air, NAD, resting comfortably. Patient denies any chest pain or sob or palpitations. Pt's BP low in AM 83/51, metoprolol needed to be held. Patient's eating ok and moving bowels ok. Physical Exam Physical Exam: Constitutional: Thin, F, lying in bed, NAD, pleasant, conversing easily Head: Normocephalic, Atraumatic Eyes: PERRL, conjunctivae normal, anicteric sclerae ENMT: external ear and nose normal, oropharynx normal dry membranes, poor dentition Neck: trachea midline, no thyromegaly normal visual inspection Respiratory: normal respiratory effort, lungs clear to auscultation, no wheeze, rales, rhonchi. Cardiovascular: RRR, no murmur, no edema Vessels: no JVD or carotid bruit Chest: normal inspection of chest Abdomen: normal bowel sounds, soft, nontender, no hepatosplenomegaly Musculoskeletal: no cyanosis or clubbing Skin: no rashes, warm and dry normal turgor Neurologic: PERRL, EOMI, accommodation nl, no face palsy, no dysarthria CN's II-XI intact bilaterally and moves all extremities Psychiatric: A+Ox3, euthymic affect Lymphatic: no cervical or axillary lymphadenopathy : deferred Right femoral access site w/ clean dressing w/ no soakage, no swelling noted. Results & Data Results & Data Vital Signs (Past 12 Hours) Vital Signs Temp Pulse Pulse Resp BP BP Pulse Ox 11/24/24 11:53 36.6 C 89 16 110/74 98 11/24/24 08:49 90/60 L 11/24/24 08:27 36.6 C 76 16 83/51 L 98 11/24/24 05:47 68 O2 Del Method 11/24/24 11:53 Room Air 11/24/24 08:49 11/24/24 08:27 Room Air 11/24/24 05:47
[2024-11-24] MEDS: NITROGLYCERIN SL 0.4 MG/TAB TAB SL PRN (17:09)
[2024-11-24] MEDS: PANTOprazole 40 MG TAB PO SCH (17:52)
[2024-11-25 06:53] LABS: BUN Creatinine Ratio 22.6 (10-20); Calcium 8.7 mg/dl (8.6-10.3); Creatinine Clr Calc Pharmacy 92.7 ml/min; Magnesium 1.8 mg/dl (1.7-2.4); Phosphorus 3.9 mg/dl (2.5-4.9); Potassium 4.2 mmol/L (3.5-5.1)
[2024-11-25 08:33] VITALS: PULSE 77; O2SAT 98
[2024-11-25 11:45] VITALS: RESP 26; TEMP 98.4
--- NOTE | 2024-11-25 13:04 | Discharge Summary ---
Date of Service November 25, 2024 Admission HPI Per Admitting Provider This is a 59 yr old F who has a significant PMH of COPD, HTN, nocturnal hypoxemia, HLD, hypothyroidism, GERD, fibromyalgia, hx of AMY, depression with anxiety, ptsd, hx of cdiff, tobacco use disorder who presents to ED 2/2 chest pain. Pt arrived via EMS after developing midsternal chest pain at the bus [place]. Chest pain radiated to her Left chest and arm. Pain was worse with movement and breathing. She reports having pain for approx 2-3 days. She has tried tylenol, motrin w/o relief. She has been getting nauseated and reporting headaches. Pt was a heart alert on arrival and went to [facility]. Initial ECG concerning for developing anterior septal DE. In cardiac [facility] she underwent a stent to her LAD and had another calcified lesion that was not amenable to PCI. She will be admitted to ICU for on going cardiac critical care. Post operatively she reports 5/10 CP that is improving. She denies f/c/s, dizziness, lightheaded, sob, n/v/d, abd pain. She reports + cardiac hx in her mother and sister. Unknown age. She is a 1/2ppd smoker. She denies ETOH of drug use. Admission Exam Per Admitting Provider constitutional: Thin, F, lying in bed, vitals as above, NAD, sitting up in bed, pleasant, conversing easily Head: Normocephalic, Atraumatic Eyes: PERRL, conjunctivae normal, anicteric sclerae ENMT: external ear and nose normal, oropharynx normal dry membranes, poor dentition Neck: trachea midline, no thyromegaly normal visual inspection Respiratory: normal respiratory effort, lungs clear to auscultation, no wheeze, rales, rhonchi. Cardiovascular: RRR, no murmur, no edema Vessels: no JVD or carotid bruit Chest: normal inspection of chest +RUE radial band, no evidence of hematoma Abdomen: normal bowel sounds, soft, nontender, no hepatosplenomegaly Musculoskeletal: no cyanosis or clubbing Skin: no rashes, warm and dry normal turgor Neurologic: PERRL, EOMI, accommodation nl, no face palsy, no dysarthria CN's II-XI intact bilaterally and moves all extremities Psychiatric: A+Ox3, euthymic affect Lymphatic: no cervical or axillary lymphadenopathy : deferred Principal Diagnosis STEMI Heart failure with reduced EF Discharge Exam Constitutional: WD/WN, vitals as above, NAD, sitting up in bed, pleasant, conversing easily Respiratory: normal respiratory effort, lungs clear to auscultation, no wheeze, rales, rhonchi. Normal insp/exp effort, no accessory muscle use Cardiovascular: RRR, no murmur, no edema Vessels: no JVD or carotid bruit Chest: normal inspection of chest Abdomen: normal bowel sounds, soft, nontender, no hepatosplenomegaly Musculoskeletal: no cyanosis or clubbing, extremities motor strength 5/5 Skin: no rashes, warm and dry normal turgor Neurologic: PERRL, EOMI, accommodation nl, no face palsy, no dysarthria CN's II- XI intact bilaterally and moves all extremities Psychiatric: A+Ox3, euthymic affect Discharge Data Allergies Allergy/AdvReac Type Severity Reaction Status Date / Time clavulanic acid Allergy Intermediate Rash Verified 11/20/22 13:02 clindamycin Allergy Intermediate Rash and Verified 11/20/22 13:02 blisters doxycycline Allergy Intermediate Nausea/Vomi Verified 11/20/22 13:02 ting mold Allergy Unknown Unknown Verified 11/20/22 13:02 rabeprazole Allergy Unknown Rash Verified 11/20/22 13:02 Consultations 11/18/24 11:53 ED Decision to Admit Stat 11/18/24 13:42 Consult Humanities Teacher Routine Procedures Performed Operation Date: 11/20/24 16:15 Actual Procedures p Aspiration/PCI w/NAMAN for Stemi - Krishan Darden MD s Cineradiography w/Routine Exam - Krishan Darden MD Ordered Studies 11/18/24 11:39 CL Cath Imgs for PACS use only Stat 11/18/24 14:46 US RUQ [US liver] Routine 11/18/24 15:54 CT chest diagnostic wo con Routine 11/20/24 16:04 CL Cath Imgs for PACS use only Stat Hospital Course (1) Chest pain: (2) ST elevation (STEMI) myocardial infarction: Plan Patient is a 59 yr old F who has a significant PMH of COPD, HTN, nocturnal hypoxemia, HLD, hypothyroidism, GERD, fibromyalgia, hx of AMY, depression with anxiety, ptsd, hx of cdiff, tobacco use disorder who presents to ED 2/2 chest pain. Patient underwent cardiac cath on 11/18 with PCI of diagonal; LAD lesion was not able to be stented. Heart alert was again on 11/20; patient underwent PCI of the LAD at that time. Patient was started on DAPT, statin. Low-dose metoprolol was started due to low blood pressure. Patient was monitored in PCU during the hospitalization with no recurrence of any chest pain or discomfort. Echocardiogram showed severe LV systolic dysfunction with EF of 30 to 35% with grade 2 diastolic dysfunction. Patient was discharged home on aspirin, Brilinta, metoprolol and Jardiance. She was instructed to use LifeVest. Patient to follow-up with PCP and cardiology as outpatient. Please note the above document was generated using voice recognition software. It may contain grammatical, syntax or spelling errors. Any formal questions or concerns about the content, text or information contained within the body of this dictation should be directly addressed to the provider for clarification Total Time Total Time Spent Total Time Spent (In Minutes): 45 Total Time Includes: Examination of the Patient, Discharge Planning, Medication Reconciliation, Communication With Other Providers and Other Discharge Plan Discharge Items Patient Disposition: Home - Self-Care Reason For Visit: STEMI Discharge Diagnosis: STEMI status post PCI Activity: Resume your previous activity Non-emergency contact: Primary Care Provider Call non-emergency contact if: you have any medication questions and your symptoms worsen Follow-up/Referrals: Ninfa Cruz DO [Primary Care Provider] - (Date & Time 11/30/2024 11:20 AM Provider: Ninfa Cruz DO [facility] ) Diet: Regular Addtl Attending Provider Instructions: You were admitted to the hospital with heart attack. You underwent cardiac cath with stent placement by cardiology during the hospitalization. You are prescribed following medications to take at home; Take aspirin 81 mg once a day Take Brilinta 90 mg twice a day (morning and night) Take Lipitor 80 mg once a day Take Jardiance 10 mg once a day Take metoprolol 25 mg once a day Take pantoprazole 40 mg once a day Please follow-up with your primary care doctor as scheduled. Pending Studies at Discharge: No Stand-Alone Forms: [employer], Smoking Cessation Medications and DC Order Prescriptions: New Brilinta 90 mg Tablet 90 mg PO BID 90 Days Qty: 180 0RF atorvastatin 40 mg Tablet 80 mg PO QAM 90 Days Qty: 180 0RF aspirin 81 mg Tablet,Delayed Release (Dr/Ec) 81 mg PO DAILY 90 Days Qty: 90 0RF pantoprazole 40 mg Tablet,Delayed Release (Dr/Ec) 40 mg PO DAILY 90 Days Qty: 90 0RF metoprolol succinate 25 mg Tablet Extended Release 24 Hr 25 mg PO QAM 90 Days Qty: 90 0RF Jardiance 10 mg tablet 10 mg PO DAILY Qty: 90 0RF Continued dexlansoprazole [Dexilant] 60 mg capsule,biphase delayed releas 60 mg PO QAM levothyroxine 75 mcg tablet 75 mcg PO QAM albuterol sulfate [Ventolin HFA] 90 mcg/actuation Hfa Aerosol Inhaler 2 puff INHALATION DIRECTED PRN (Reason: Shortness Of Breath Or Wheezing) quetiapine 25 mg tablet 25 mg PO Q8H PRN (Reason: Anxiety) venlafaxine 75 mg capsule,extended release 24hr 76 mg PO DAILY sucralfate 100 mg/mL suspension 10 ml PO ACHS pregabalin [Lyrica] 225 mg capsule 225 mg PO BID fluticasone propion-salmeterol [Advair HFA] 115-21 mcg/actuation Hfa Aerosol Inhaler 2 puff INHALATION Q12H Discharge Orders: Discharge Order (Routine); Ordered 11/25/24 Ordered By: Elezaar Osman Admission Data Admit Date/Time: 11/18/24 13:42 Attending Provider: Terry Hernandez Admit Provider: David Sierra Primary Care Provider: Ninfa Cruz Other Providers: David Sierra; Kamran Medeiros Seth D.; Son Alba; Kamlesh Taylor; Adelfo Blankenship; Shashank Swift; Sindy Luke
[2024-11-25 13:35] VITALS: BP 83/51
--- NOTE | 2024-11-26 05:39 | Electrocardiogram Report ---
Test Reason : Blood Pressure : */* mmHG Vent. Rate : 63 BPM Atrial Rate : 63 BPM P-R Int : 136 ms QRS Dur : 74 ms QT Int : 424 ms P-R-T Axes : 61 52 -44 degrees QTcB Int : 433 ms Normal sinus rhythm Lateral infarct Abnormal ECG When compared with ECG of 22-Nov-2024 10:38, ST no longer elevated in Anterior leads T wave inversion now evident in Inferior leads T wave inversion no longer evident in Lateral leads Confirmed by Yonny García ([id number]) on 11/26/2024 5:39:14 AM Referred By: REFERRED SELF Confirmed By: Yonny García
--- NOTE | 2024-11-26 14:13 | Coding Query ---
CONGESTIVE HEART FAILURE To Promote full compliance with coding requirements relating to patient care, physician participation is requested in all cases of electrical and radio mechanic uncertainty. Please assist us with the following questions. A diagnosis of Congestive Heart Failure is documented in the patient's medical record on Progress Notes starting on 11/21/24 with documentation of, "Ac HF w/ r EFz'. To accurately code this diagnosis and to compare patient severity, we ask that you specify the type of heart failure by placing an X within the parenthesis (x). SYSTOLIC HEART FAILURE, or HFrEF ( x) Acute ( ) Chronic ( ) Acute on Chronic ( ) Rheumatic ( ) Unknown Thank you Gracy ROBLES
== END 2024-11-25 14:33 | disposition home or self-care (01) | DRG 321 ==
LOC: ED 11:24 → CC 12:01 → 1E 13:42 → 2E 11-22 17:29